=== PATIENT | male | born 1950 | race Caucasian/White ===

== ENCOUNTER 2021-04-21 07:39 | Outpatient (CLI) | payer MEDICARE, OTHER, SELFPAY ==
--- NOTE | ~2021-04-21 | NM_ITS ---
EXAMINATION: NM bone scan whole body DATE: 04/21/2021 11:08 INDICATION: Prostate cancer. Mild arthritis and pain at the left hand and wrist. TECHNIQUE: 26.8 mCi Tc-99m HDP was administered intravenously. Delayed whole-body scintigrams were o btained. COMPARISON: Chest CT dated 03/10/2019. No more recent imaging studies at our institution. FINDINGS: Foci of moderate likely degenerative increased uptake at the radial aspect of the left wrist and carp us in the regions of the radioscaphoid, triscaphe and first carpal metacarpal joints. Otherwise physi ologic distribution of bone and soft tissue activity. No other lesions suspicious for metastatic dise ase. IMPRESSION: 1. Joint centered uptake at the radial aspect of the left wrist and carpus which is likely degenerati ve in etiology. Could consider dedicated left wrist radiographs for further evaluation. Reviewed, dictated and finalized at location A. RAISING DIRECTOR IMPRESSION: 1. Joint centered uptake at the radial aspect of the left wrist and carpus whic h is likely degenerative in etiology. Could consider dedicated left wrist radio graphs for further evaluation.
== END 2021-04-21 07:40 | disposition home or self-care (01) ==
LOC: ANHIMG 07:43
PROVIDERS: PCP Internal Medicine; Visit Provider Urology
DX: C61 Malignant neoplasm of prostate (principal)
CPT/HCPCS: 78306; A9561

== ENCOUNTER 2022-05-03 05:57 | Inpatient (IN) | payer MEDICARE, OTHER, SELFPAY ==
[2022-05-03] VITALS (42 sets, daily range): BP systolic 90–125; BP diastolic 63–87; PULSE 94–119; RESP 12–33; TEMP 36.4–36.6; O2SAT 75–98
--- NOTE | ~2022-05-03 | XR_ITS ---
EXAMINATION: XR chest 1V portable INDICATION: Shortness of breath TECHNIQUE: Portable AP chest at 1128 hours COMPARISON: 05/03/2022 FINDINGS: Diffuse airspace opacities persist in the right mid and lower lung zones with slight improv ement. No pleural effusion or pneumothorax. The cardiomediastinal silhouette is normal. IMPRESSION: 1. Airspace opacities of the right mid and lower lung zones with slight improvement, consistent with pneumonia. Reviewed, dictated and finalized at location A. GENCY TECHNICIAN IMPRESSION: 1. Airspace opacities of the right mid and lower lung zones with slight improve ment, consistent with pneumonia.
--- NOTE | ~2022-05-03 | XR_ITS ---
EXAMINATION: XR chest 1V portable Exam Date/Time: 05/12/2022 13:25 WALLPAPER INSPECTOR AND SHIPPER HISTORY: pneumonia Comparison: 05/05/2022, CTPA 05/03/2022. RESULT: Lines, tubes, and devices: None. Lungs and pleura: Mild interval improvement in the reticular right lung opacities, with some transit ion to more coarse interstitial opacities. Mild right costophrenic angle blunting. Cardiomediastinal silhouette: Stable. Other: No acute osseous or upper abdominal finding. IMPRESSION: Mild interval improvement in the right lung pneumonia. Possible small right pleural effusion. Reviewed, dictated and finalized at location K. PAPER INSPECTOR AND SHIPPER IMPRESSION: Mild interval improvement in the right lung pneumonia. Possible small right ple ural effusion.
--- NOTE | ~2022-05-03 | XR_ITS ---
EXAMINATION: XR chest 1V portable DATE: 05/03/2022 06:29 INDICATION: Shortness of breath. Chronic obstructive pulmonary disease. TECHNIQUE: A single frontal view of the chest was obtained. COMPARISON: Chest 2 views 11/07/2018 FINDINGS: The lungs are hyperexpanded with lucencies, consistent with emphysema. There are airspace o pacities in right lung predominantly involving the right mid and lower lung zones. There is a small r ight pleural effusion. No pneumothorax. The heart size is normal. IMPRESSION: 1. Airspace opacities in right lung predominantly involving the right mid and lower lung zones, consi stent with pneumonia. 2. Small right pleural effusion. 3. Emphysema. Reviewed, dictated and finalized at location A. UNT RESOLUTION EXPERT IMPRESSION: 1. Airspace opacities in right lung predominantly involving the right mid and l ower lung zones, consistent with pneumonia. 2. Small right pleural effusion. 3. Emphysema.
--- NOTE | ~2022-05-03 | XR_ITS ---
EXAMINATION: XR ankle RT min 3V, XR foot RT min 3V DATE: 05/17/2022 14:11 INDICATION: Right foot and ankle pain with inability to bear weight TECHNIQUE: 1. Anteroposterior, mortise, additional oblique and lateral view of the right ankle were obtained. 2. Dorsoplantar, two oblique and lateral views of the right foot were obtained. COMPARISON: None. FINDINGS: Alignment of the foot and ankle is normal. No fracture or osteochondral lesion. Joint spaces are well maintained. No cortical erosions or periosteal reaction. Small amount of dystrophic calcification al franco the medial side of the head of the first metatarsal potentially along the medial collateral ligam ent complex. Soft tissues are otherwise unremarkable. No ankle joint effusion. IMPRESSION: 1. No osseous abnormality at the right foot or ankle. Reviewed, dictated and finalized at location A. TER PILOT IMPRESSION: 1. No osseous abnormality at the right foot or ankle.
--- NOTE | ~2022-05-03 | US_ITS ---
EXAMINATION: US right upper quadrant DATE: 05/06/2022 10:53 INDICATION: Abnormal liver function tests TECHNIQUE: Multiple grayscale and Doppler ultrasound images of the abdomen were obtained. COMPARISON: CT, 05/03/2022 FINDINGS: The head and body of the pancreas are normal. The pancreatic tail is obscured by bowel gas. The liver demonstrates increased echogenicity, heterogenous echotexture, and decreased through trans mission. No surface nodularity. Normal hepatopetal flow in the main portal vein. The gallbladder is n ormal with no abnormal wall thickening, pericholecystic fluid or stones. The normal common bile duct measures 4 mm. There was no sonographic Lopez sign. IMPRESSION: 1. Diffuse hepatic steatosis. Reviewed, dictated and finalized at location A. AIDE TECH
--- NOTE | ~2022-05-03 | US_ITS ---
EXAMINATION: US aorta DATE: 05/11/2022 15:12 INDICATION: Abdominal aortic aneurysm TECHNIQUE: Grayscale, color Doppler, and pulsed Doppler images of the aorta and common iliac arteries were obtained. COMPARISON: None. FINDINGS: The proximal aorta measures 3.7 cm. The mid aorta measures 2.9 cm. The distal aorta measures 2.3 cm. The right common iliac artery measures 1.4 cm. The left common iliac artery measures 1.4 cm. IMPRESSION: 1. Ectatic proximal abdominal aorta measuring up to 3.7 cm. Reviewed, dictated and finalized at location A. E FILER
--- NOTE | ~2022-05-03 | CT_ITS ---
EXAMINATION: CTA chest PE protocol DATE: 05/03/2022 08:53 INDICATION: Shortness of breath and hypoxia TECHNIQUE: Computed tomography angiography (CTA) of the chest was performed with 100 mL Omnipaque-350 intravenous contrast timed to evaluate the pulmonary arteries. Coronal maximum intensity projection 3D-reconstructions were created by the technologist. The dose-length product (DLP) was 542.98 mGy-cm. Automated exposure control and iterative reconstruction technique were employed. COMPARISON: 03/10/2019 FINDINGS: The pulmonary arteries are well-opacified. No pulmonary embolism is identified. There is s evere emphysema. There are diffuse airspace opacities involving much of the right lower lobe and port ions of the right middle and upper lobes. There is right hilar, subcarinal, and right paratracheal ly mphadenopathy. The heart size is normal. There is a trace right pleural effusion. No pneumothorax is identified. There is moderate thoracic spondylosis. There is mild gallbladder distention which could be due to fasting state. A stable partially imaged mass in the subcutaneous tissues of the left upper back likely represents a sebaceous cyst. IMPRESSION: 1. No pulmonary embolism identified. 2. Diffuse airspace opacities involving much of the right lower lobe and portions of the right middle and upper lobes, consistent with pneumonia. 3. Right hilar and mediastinal lymphadenopathy, likely reactive. Reviewed, dictated and finalized at location A. TUBE ATTENDANT IMPRESSION: 1. No pulmonary embolism identified. 2. Diffuse airspace opacities involving much of the right lower lobe and portio ns of the right middle and upper lobes, consistent with pneumonia. 3. Right hilar and mediastinal lymphadenopathy, likely reactive.
--- NOTE | 2022-05-03 06:06 | ECG_ITS ---
Measurements Intervals [place] Rate: 116 P: 67 AL: 134 QRS: 19 QRSD: 82 T: 58 QT: 305 QTc: 425 Interpretive Statements SINUS TACHYCARDIA WITH OCCASIONAL VENTRICULAR PREMATURE COMPLEXES WITH OCCASIONAL SUPRAVENTRICULAR PREMATURE COMPLEXES ABNORMAL RHYTHM ECG COMPARED TO ECG 11/07/2018 12:30:38 SINUS TACHYCARDIA PACS AND PVCS ARE NOW PRESENT Electronically Signed On 05-03-2022 11:44:58 JUVENILE CORRECTIONS OFFICER by Tamra Flanagan M.D.
--- NOTE | 2022-05-03 06:18 | ED.SOB ---
HPI - SOB/Dyspnea General Chief Complaint: Shortness of Breath/Dyspnea <Momo Suresh MD - Last Filed: 05/03/22 07:27> Stated Complaint: COPD <Momo Suresh MD - Last Filed: 05/03/22 07:27> Time Seen by Provider: 05/03/22 06:16 <Momo Suresh MD - Last Filed: 05/03/22 07:27> History of Present Illness HPI Narrative: This is a 71-year-old male past medical history of COPD, left femoral DVT, aortic aneurysm, brought in by EMS from home for hypoxia. Patient states he has been feeling short of breath with some wheeze beginning 3 days ago. He tried to manage with home nebs without improvement. He uses 2 L of O2 at home as needed. He complains of diffuse myalgias and cough productive of thick mucus without blood. EMS reports the patient was satting in the high 70s on room air. He was given 2 g of mag, 10 mg Decadron and 5 mg albuterol nebs with improvement of his O2 sats to the mid 80s. <Momo Suresh MD - Last Filed: 05/03/22 07:27> Related Data Home Medications: Home Medications Medication Instructions Recorded Confirmed albuterol sulfate 90 mcg/actuation 1 inhalation inhalation Q4H 05/27/19 05/26/21 aerosol inhaler (Ventolin HFA) amlodipine 5 mg tablet 5 mg PO DAILY 05/27/19 05/26/21 atenolol 100 mg tablet 100 mg PO DAILY 05/27/19 05/26/21 multivitamin (Multiple Vitamins 1 tablet PO DAILY 05/27/19 05/26/21 tablet) rivaroxaban 20 mg tablet (Xarelto) 20 mg PO DAILY 05/27/19 05/26/21 simvastatin 20 mg tablet 20 mg PO DAILY 05/27/19 05/26/21 albuterol sulfate 2.5 mg/3 mL 2.5 mg inhalation Q4-6H PRN 05/28/19 05/26/21 (0.083 %) solution for nebulization <Momo Suresh MD - Last Filed: 05/03/22 07:27> Allergies/Adverse Reactions: Allergies Allergy/AdvReac Type Severity Reaction Status Date / Time No Known Allergies Allergy Verified 05/03/22 07:50 <Momo Suresh MD - Last Filed: 05/03/22 07:27> Review of Systems Review of Systems: CONSTITUTIONAL: Fevers, chills denies sweats. EYES: Denies visual changes, redness, or discharge. ENT: Rhinorrhea, congestion denies sore throat, or otalgia. CARDIOVASCULAR: Denies chest pain, palpitations, or edema. RESPIRATORY: Cough and dyspnea GASTROINTESTINAL: Denies abdominal pain, nausea, vomiting, or diarrhea. GENITOURINARY: Denies dysuria or hematuria. SKIN: Denies rash or itching. MUSCULOSKELETAL: Denies back pain, joint pain, or myalgia. NEUROLOGIC: Denies headache, numbness, dizziness, or weakness. PSYCHIATRIC: Denies anxiety or depression. <Momo Suresh MD - Last Filed: 05/03/22 07:27> PMFSH Past Medical History Medical History: Medical History (Updated 05/03/22 @ 07:25 by Momo Suresh MD) COPD exacerbation History of DVT (deep vein thrombosis) Sleep apnea Thoracic aortic aneurysm without rupture <Momo Suresh MD - Last Filed: 05/03/22 07:27> Family History Family History: Family History Mother Family history of lung cancer <Momo Suresh MD - Last Filed: 05/03/22 07:27> Social History Social History: Social History Smoking packs per day: 3 Smoking cigarettes per day: 60.0 Years smoked: 43 Smoking pack-years: 129.00 Smoking status: Former smoker Second hand tobacco smoke exposure: No Smoking end date: 05/20/05 <Momo Suresh MD - Last Filed: 05/03/22 07:27> Exam Narrative: GENERAL: Well-developed, well-nourished, and in no acute distress. HEAD: Normocephalic, atraumatic. EYES: PERRLA and EOMI. ENT: Nares clear, no rhinorrhea or epistaxis. Mucous membranes moist. Oropharynx without tonsillar hypertrophy exudate or other lesions. NECK: Supple. No adenopathy or masses. No carotid bruits or JVD CHEST: Diminished aeration bilaterally with expiratory wheeze. No respiratory distress. No rales or rhonch
[2022-05-03 06:23] LABS: Alveolar/Arterial O2 Gradient 604.6 mmHg; Base Excess ABG -0.2 mEq/l (+/-2.0); Carboxyhemoglobin 1.2 % THb (0-2.0); Device NON-INVASIVE VENT; Fractional Inspired Oxygen 100 %; HCO3 ABG 23.8 mEq/l (22.0-26.0); Methemoglobin ABG 0.4 %THb (0-1.5); Modified Allen's Test Unable to perform; Oxygen Content ABG 22.1 %vol (16.0-22.0); Oxygen Saturation ABG 94.7 % (95.0-100.0); Oxyhemoglobin 92.6 % THb (90.0-100.0); PCO2 ABG 37.4 mmHg (35.0-45.0); PO2 FiO2 Ratio Arterial Blood 0.71 %; Reduced Hemoglobin 5.8 %THb (0-5.0); Site Drawn LEFT RADIAL; pH ABG 7.422 (7.350-7.450)
[2022-05-03 06:24] LABS: Non-Invasive Expiratory Pressure 6 CMH2O; Non-Invasive Inspiratory Pressure 12 CMH2O; Non-Invasive Vent Rate 16 /MIN
[2022-05-03] MEDS: IPRATROPIUM BR 0.02% INH SOLN 0.5 MG/2.5 ML VIAL INHALATION (06:30)
[2022-05-03] MEDS: ALBUTEROL SULFATE NEB 2.5 MG/3 ML INH 10 MG INHALATION (06:30)
[2022-05-03 06:34] LABS: Hematocrit 48.7 % (42.0-52.0); Hemoglobin 16.7 g/dL (14.0-18.0); Mean Corpuscular HGB Conc 34.3 g/dl (32-36); Mean Corpuscular Volume 93.3 fl (80-100); Mean Platelet Volume 10.4 fl (7.4-10.4); Platelet Count Result 161 k/mm3 (150-375); Red Blood Count 5.22 M/mm3 (4.6-6.20); Red Cell Distribution Width 13.6 % (11.5-14.5); White Blood Count 2.7 K/mm3 (4.5-10.0)
[2022-05-03 06:41] LABS: Lactic Acid Reflex 3.6 mmol/L (0.7-2.0)
[2022-05-03 06:42] LABS: Alanine Aminotransferase 61 U/L (6-50); Albumin Level 3.7 g/dL (3.5-5.1); Alkaline Phosphatase 89 U/L (38-126); Anion Gap 9 mmol/L (8-16); Aspartate Amino Transferase 97 U/L (17-59); Bilirubin,Total 0.9 mg/dL (0.2-1.3); Blood Urea Nitrogen 39 mg/dL (9-20); Calcium 8.8 mg/dL (8.4-10.2); Carbon Dioxide 26 mmol/L (22-30); Chloride 96 mmol/L (98-107); Estimated Glomerular Filt Rate > 60; Glucose 109 mg/dL (65-110); Magnesium 3.4 mg/dL (1.6-2.3); Potassium 4.1 mmol/L (3.4-5.0); Sodium 131 mmol/L (137-145)
[2022-05-03 06:54] LABS: Troponin I < 0.012 ng/mL (0.000-0.034)
[2022-05-03 06:58] LABS: INR 2.8; Prothrombin Time 28.5 Seconds (11.1-14.7)
[2022-05-03 07:05] LABS: Influenza A QL RT-PCR Negative (Negative); Influenza B QL RT-PCR Negative (Negative); RSV RNA, RT-PCR Negative (Negative); SARS-CoV-2 RNA PCR Negative
[2022-05-03 07:27] LABS: Band Neutrophils Percent 24 % (0-6); Eosinophils Absolute Manual 0.05 K/mm3 (0.02-0.5); Eosinophils Percent Manual 2 % (0-4); Lymphocytes Absolute Manual 0.48 K/mm3 (1.1-4.5); Metamyelocytes Percent 1 %; Monocytes Absolute Manual 0.29 K/mm3 (0.1-0.90); Monocytes Percent Manual 11 % (3-9); Neutrophils Absolute Manual 1.83 K/mm3 (1.3-6.7); Neutrophils Percent Manual 44 % (46-73); Total Cells Counted 100
[2022-05-03 07:28] LABS: Atypical Lymphocytes Present; Platelet Estimate Adequate (Adequate); Schistocytes None Seen (NORMAL)
[2022-05-03 09:26] LABS: Reflex Lactic Acid Yes or No Add Lactic
[2022-05-03 09:56] LABS: Lactic Acid 2.6 mmol/L (0.7-2.0)
--- NOTE | 2022-05-03 11:00 | PC.NURSE ---
Patient refusing to wear BiPAP, states I can't breathe in that thing. EDP aware. Per EDP, okay to start high flow. Patient 90% on high flow.
--- NOTE | 2022-05-03 12:31 | PC.NURSE ---
Patient 85% on high flow. Patient okay to attempt to be placed back on BiPAP. ED respiratory notified.
--- NOTE | 2022-05-03 13:33 | ADMGEN ---
This patient, Donta Collins, was admitted to IMU Room 204-01 at 1318. Patient/family oriented to hospital policies and general routines including ID bracelet, bed and alarms, visiting hours, pain management, procedures, bathroom and other care routines, personal items, smoking policy, room service/diet, and visiting hours. Information on how to activate the Rapid Response Team has been discussed. Patient/Family are encouraged to report perceived risks to care and to ask questions if they do not understand what they are told or what they should do.
--- NOTE | 2022-05-03 20:06 | PM.IMHP ---
H&P: HPI History of Present Illness Date/Time: 05/03/22 20:06 Chief Complaint: Shortness of breath Narrative: This is a 71-year-old male patient who does have a history of DVTs and COPD. The patient was brought from home due to hypoxia. The patient stated that he does have oxygen at home but only uses it at times when he needs it. He uses 2 L when needed. The patient stated that he has had to turn his oxygen up to 6 L per nasal cannula and has been using it over the last couple days. The patient was feeling short of breath with some wheezing that started 3 days ago. He attempted to manage it with the oxygen and nebulizer treatments. Patient has complaints of myalgias and a cough. His O2 saturation was in the upper 70s on room air. When EMS was activated the aim 2 g of Mag 10 mg of Decadron 5 mg of albuterol nebs any did have some improvement that brought his oxygen level up to the upper 80s. His white count was found to be 2.7. Sodium 131. Lactic was 3.6 and then 2.6. AST 97 and ALT 61. Troponins were negative x2. The patient was given nebulizer treatments and cefepime and azithromycin. CTA was read as. No pulmonary embolism identified. 1. No pulmonary embolism identified. 2. Diffuse airspace opacities involving much of the right lower lobe and portions of the right middle and upper lobes, consistent with pneumonia. 3. Right hilar and mediastinal lymphadenopathy, likely reactive. Chest x-ray was read as. Airspace opacities in right lung predominantly involving the right mid and lower lung zones, consistent with pneumonia. 2. Small right pleural effusion. 3. Emphysema. The patient was started on a BiPAP 14/8 with a rate of 12 and 50% FiO2. The patient is being admitted to inpatient status on the date of service of 05/03/2022. Review of Systems Review of Systems: See HPI All systems reviewed & are unremarkable except as noted in HPI and below Constitutional: Constitutional: Reports as per HPI and Reports no additional constitutional complaints Eyes: Eyes: Reports as per HPI and Reports no additional eye complaints ENT: Reports system reviewed and no additional complaints, except as documented and Reports Normal hearing present Cardiovascular: Cardiovascular: Reports no additional cardiovascular complaints Respiratory: Respiratory: Reports no additional respiratory complaints and Reports no additional respiratory complaints Gastrointestinal: Gastrointestinal: Reports as per HPI and Reports no additional gastrointestinal complaints Musculoskeletal: Musculoskeletal: Reports no additional musculoskeletal complaints Integumentary/Breasts: Skin/Breast: Reports system reviewed and no additional complaints, except as docu and Reports as per HPI Neurologic: Reports system reviewed and no additional complaints, except as documented, Reports as per HPI and Reports Normal hearing present Psychiatric: Psychiatric: Reports no additional psychiatric complaints and Reports as per HPI Endocrine: Endocrine: Reports no additional endocrine complaints Hematologic/Lymphatic: Hematologic/Lymphatic: Reports no additional hematologic/lymphatic complaints Allergic/Immunologic: Allergic/Immunologic: Reports no additional allergic/immunologic complaints COUNTS INCLUDE 234 BEDS AT THE [facility] Past Medical History Medical History (Updated 05/03/22 @ 23:19 by Adriana Gayle NP) COPD exacerbation History of DVT (deep vein thrombosis) History of prostate cancer Hyperlipidemia Hypertension Sleep apnea Thoracic aortic aneurysm without rupture Surgical History Surgical History (Updated 05/03/22 @ 23:14 by Adriana Gayle NP) H/O cataract extraction H/O foot surgery Family History Family History Mother Family history of lung cancer Social History Social History (Updated 05/03/22 @ 23:08 by Adriana Gayle NP) Social History: The patient lives at home with his who is the durable power consulting systems engineer
[2022-05-03] MEDS: methylPREDNISolone SOD SUCC 40 MG VIAL IV PUSH (23:37)
[2022-05-03 23:57] LABS: Lactic Acid Reflex 1.7 mmol/L (0.7-2.0)
[2022-05-04] VITALS (20 sets, daily range): BP systolic 109–141; BP diastolic 60–88; PULSE 84–111; RESP 20–28; TEMP 36.2–37.2; O2SAT 82–96
[2022-05-04 05:09] LABS: Hematocrit 45.4 % (42.0-52.0); Hemoglobin 15.8 g/dL (14.0-18.0); Mean Corpuscular HGB Conc 34.8 g/dl (32-36); Mean Corpuscular Volume 91.9 fl (80-100); Mean Platelet Volume 10.4 fl (7.4-10.4); Platelet Count Result 153 k/mm3 (150-375); Red Blood Count 4.94 M/mm3 (4.6-6.20); Red Cell Distribution Width 13.6 % (11.5-14.5); White Blood Count 6.1 K/mm3 (4.5-10.0)
[2022-05-04 05:17] LABS: Magnesium 2.7 mg/dL (1.6-2.3)
[2022-05-04 05:55] LABS: Thyroid Stimulating Hormone Reflex 0.237 uIU/mL (0.465-4.68)
[2022-05-04 05:57] LABS: Atypical Lymphocytes Present; Band Neutrophils Percent 22 % (0-6); Lymphocytes Absolute Manual 0.48 K/mm3 (1.1-4.5); Macrocytosis 2+ (NORMAL); Metamyelocytes Percent 3 %; Monocytes Absolute Manual 0.24 K/mm3 (0.1-0.90); Monocytes Percent Manual 4 % (3-9); Neutrophils Absolute Manual 5.18 K/mm3 (1.3-6.7); Neutrophils Percent Manual 63 % (46-73); Platelet Estimate Adequate (Adequate); Schistocytes None Seen (NORMAL); Total Cells Counted 100
[2022-05-04] MEDS: methylPREDNISolone SOD SUCC 40 MG VIAL IV PUSH ×4 (06:26→23:37)
[2022-05-04] MEDS: ALBUTEROL SULFATE (*SP) AEROSOL 1 PUFF INHALATION ×3 (07:15→20:14)
[2022-05-04] MEDS: FLUTICASONE/UMECLIDIN/VILANTER 100-62.5-25 MCG ELLIPTA 1 PUFF INHALATION (07:20)
[2022-05-04 08:21] LABS: Free T4 Free Thyroxine Reflex 1.34 ng/dL (0.78-2.19)
--- NOTE | 2022-05-04 09:17 | PM.IMPN ---
Progress Note: A&P Assessment and Plan (1) CAP (community acquired pneumonia): Code(s): J18.9 - Pneumonia, unspecified organism Status: Acute Assessment and Plan: CTA chest with right lower, right middle and right upper lobe. Daughter mentions ETOH abuse to nurse, so with this presentation consider aspiration pneumonia. Will treat to cover for aspiration as well as high risk due to structural lung disease as emphysema noted on CTA. -Cefepime 2g q8h -Vancomycin -Azithromycin 500 mg po daily (2) Acute exacerbation of chronic obstructive airways disease: Code(s): J44.1 - Chronic obstructive pulmonary disease with (acute) exacerbation Status: Acute Assessment and Plan: -Ipratropium - albuterol q4h -Methylprednisolone 40 mg IV q6h -Wean oxygen as tolerated (3) Hypertension: Code(s): I10 - Essential (primary) hypertension Status: Acute Assessment and Plan: Takes atenolol and amlodipine at home. Continue. Will monitor. (4) Hyperlipidemia: Code(s): E78.5 - Hyperlipidemia, unspecified Status: Acute Assessment and Plan: Takes simvastatin 20 mg daily. Continue. (5) History of DVT (deep vein thrombosis): Code(s): Z86.718 - Personal history of other venous thrombosis and embolism Status: Acute Assessment and Plan: Takes rivaroxaban at home. Continue. Subjective Date/time seen: 05/04/22 09:17 Patient says he feels better. Says his breathing is better but still feels shortness of breath. Denies chest pain. Says prior to coming to the emergency department he would feel pain on his right side when he took a deep breath. He says this has resolved since starting treatment in the emergency department. Exam Narrative: GENERAL: NAD, cooperative HEENT: Normocephalic, atraumatic, anicteric, nares clear, oropharynx moist and clear NECK:Supple CV: Normal S1, S2, RRR, No MRG RESP: Crackles to right base EXTREMITIES: Warm and well perfused, no clubbing, cyanosis, or edema. SKIN: warm, dry and intact. NEURO: CN II-XII grossly intact. Objective Data Vital Signs Vital Signs: Vital Signs - 24 hr 05/03/22 10:02 05/03/22 10:07 05/03/22 10:40 Temperature Pulse Rate 110 H Respiratory Rate 15 Blood Pressure 102/77 Pulse Oximetry 88 L Oxygen Delivery High Flow Therapy with Na Oxygen Flow Rate 60 Fraction of Inspired Oxygen 90 05/03/22 10:07 05/03/22 10:21 05/03/22 11:01 Temperature Pulse Rate 99 98 100 Respiratory Rate 20 19 12 Blood Pressure 102/77 125/84 Pulse Oximetry 90 91 89 L Oxygen Delivery Oxygen Flow Rate Fraction of Inspired Oxygen 05/03/22 12:33 05/03/22 11:02 05/03/22 11:15 Temperature Pulse Rate 100 98 Respiratory Rate 12 17 Blood Pressure 104/73 Pulse Oximetry 88 L 89 L Oxygen Delivery Oxygen Flow Rate Fraction of Inspired Oxygen 05/03/22 11:38 05/03/22 11:45 05/03/22 11:46 Temperature Pulse Rate 96 96 97 Respiratory Rate 22 H 17 23 H Blood Pressure 113/82 Pulse Oximetry 88 L 91 92 Oxygen Delivery Oxygen Flow Rate Fraction of Inspired Oxygen 05/03/22 12:00 05/03/22 12:30 05/03/22 12:36 Temperature Pulse Rate 98 96 94 Respiratory Rate 14 15 23 H Blood Pressure Pulse Oximetry 91 87 L 90 Oxygen Delivery BiPAP Oxygen Flow Rate Fraction of Inspired Oxygen 05/03/22 12:53 05/03/22 13:30 05/03/22 14:00 Temperature Pulse Rate 100 98 Respiratory Rate 33 H Blood Pressure Pulse Oximetry 92 91 Oxygen Delivery BiPAP BiPAP Oxygen Flow Rate Fraction of Inspired Oxygen 05/03/22 16:00 05/03/22 17:31 05/03/22 18:00 Temperature Pulse Rate 103 H 109 H Respiratory Rate 22 H Blood Pressure Pulse Oximetry 92 Oxygen Delivery BiPAP Oxygen Flow Rate Fraction of Inspired Oxygen 05/03/22 16:00 05/03/22 16:00 05/03/22 20:00 Tempera
[2022-05-04 09:18] LABS: Total Triiodothyronine (T3) 0.38 NG/ML (0.97-1.69)
[2022-05-04] MEDS: amLODIPine BESYLATE 5 MG TABLET PO (09:20)
[2022-05-04] MEDS: atenoloL 50 MG TABLET 100 MG PO (09:21)
[2022-05-04] MEDS: MULTIVITAMINS THERAPEUTIC TAB (*BKC) 1 TABLET PO (09:21)
[2022-05-04] MEDS: SIMVASTATIN 20 MG TABLET PO (09:21)
[2022-05-04 09:34] LABS: Alanine Aminotransferase 79 U/L (6-50); Albumin Level 2.9 g/dL (3.5-5.1); Alkaline Phosphatase 29 U/L (38-126); Anion Gap 5 mmol/L (8-16); Aspartate Amino Transferase 97 U/L (17-59); Bilirubin,Total 0.3 mg/dL (0.2-1.3); Blood Urea Nitrogen 43 mg/dL (9-20); Calcium 11.9 mg/dL (8.4-10.2); Carbon Dioxide 31 mmol/L (22-30); Chloride 96 mmol/L (98-107); Estimated CRCL calculation 55 ml/min; Estimated Glomerular Filt Rate > 60; Glucose 146 mg/dL (65-110); Potassium 4.2 mmol/L (3.4-5.0); Sodium 132 mmol/L (137-145)
[2022-05-04] MEDS: IPRATROPIUM BR 0.02% INH SOLN 0.5 MG/2.5 ML VIAL INHALATION ×2 (13:17→20:15)
--- NOTE | 2022-05-04 17:55 | PC.NURSE ---
Pt has mild confusion and hallucinations. pt hallucinating a robot in the hallway . Per pt's daughter, pt is a daily drinker and drinks 4-8 drinks per day. Pt's daughter believes last drink was this past saturday, 04/29. Information and condition update to Dr. Feng.
[2022-05-04] MEDS: RIVAROXABAN 20 MG TABLET PO (18:06)
[2022-05-05] VITALS (38 sets, daily range): BP systolic 105–140; BP diastolic 72–93; PULSE 88–160; RESP 20–28; TEMP 36.4–36.8; O2SAT 76–98
--- NOTE | 2022-05-05 | PC.NURSE ---
Pt got up to bathroom alone, pulled off oxygen and heart monitor/pulse ox. RN had to increase nc to 13L. When asked orientation questions/CIWA, pt stated he didn't know where he was. Pt stated he just wanted to go back to bed. Pt refused librium from RN and breathing treatment from RT.
--- NOTE | 2022-05-05 | ECHO_ITS ---
Patient Info Name: Donta Collins Age: 71 years : 1950 Gender: Male Ht: 70 in Wt: 160 lbs BSA: 1.89 m2 HR: 118 bpm Heart Rhythm: Atrial Fibrillation Technical Quality: Poor Exam Date: 05/05/2022 1:47 PM Exam Location: [facility] Pulmonary Exam Room: Patient Status: Inpatient Admit Date: 05/03/2022 Staff Ordering Physician: Kane Boston MD Net Finisher: Jennifer Jewell RDCS Attending Provider: Glenn Heaton MD Referring Physician: Darvin LAU; Exam Type: CA echo dop color flow w con Study Info Indications - new afib/rvr Complete two-dimensional, color flow and Doppler transthoracic echocardiogram is performed with contrast to opacify the left ventricle and to improve the deliniation of the left ventricle endocardial borders. Reason for Poor Study: patient body habitus Summary 1. Mild left ventricular enlargement with normal thickness with good contractility of all segments. Ejection fraction visually appears to be 55-60% depending on the length of the preceding cardiac cycle. No segmental wall motion abnormalities. Indeterminate diastolic function. 2. Left atrial chamber dimension is mildly enlarged. 3. There is a mass on 1 of the aortic valve leaflets, probably mild aortic valve calcification. A vegetation cannot be excluded on this study. Consider further evaluation if clinically indicated. 4. There is mild mitral valve regurgitation. 5. Mild pulmonary hypertension, estimated pulmonary arterial systolic pressure is 44 mmHg. 6. Calcified aortic root. 7. Atrial fibrillation with a rapid ventricular response. Left Ventricle Left ventricular chamber dimension is mildly enlarged. Left ventricular systolic function is normal, estimated at 55-60%. There is no increased left ventricular wall thickness. Left ventricular septal wall motion is normal. The left ventricular diastolic function is indeterminate. Right Ventricle Right ventricular chamber dimension is normal. Right ventricular systolic function is normal. Left Atria Left atrial chamber dimension is mildly enlarged. Right Atria Right atrial chamber dimension is normal. Aortic Valve The aortic valve is trileaflet. There is no aortic valve sclerosis. There is no aortic valve stenosis. There is no aortic valve regurgitation. There is a mass on 1 of the aortic valve leaflets, probably mild aortic valve calcification. A vegetation cannot be excluded on this study. Consider further evaluation if clinically indicated. Pulmonic Valve The pulmonic valve is normal. There is no pulmonic valve stenosis. There is no pulmonic regurgitation. Mitral Valve The mitral valve has normal leaflets. There is no mitral valve stenosis. There is mild mitral valve regurgitation. Tricuspid Valve The tricuspid valve leaflets are normal. There is no significant tricuspid valve stenosis. There is trace tricuspid valve regurgitation. Mild pulmonary hypertension, estimated pulmonary arterial systolic pressure is 44 mmHg. Pericardium/Pleural The pericardium appears normal. There is no pericardial effusion. Inferior Vena Cava Normal inferior vena cava with >50% collapse upon inspiration consistent with Empty right atrial pressure, 10 mmHg. Aorta The aortic root size at the sinus of Valsalva is normal. The prox ascending aorta size is normal. There is mild aortic atherosclerosis. Left Ventricular Outflow Tract
[2022-05-05] MEDS: WATER FOR IRRIGATION, STERILE 1,000 ML BOTTLE 1000 ML (02:05)
[2022-05-05] MEDS: IPRATROPIUM BR 0.02% INH SOLN 0.5 MG/2.5 ML VIAL INHALATION (04:15)
[2022-05-05] MEDS: ALBUTEROL SULFATE NEB 2.5 MG/3 ML INH INHALATION (04:16)
[2022-05-05 04:33] LABS: Eosinophils Percent Auto 0.1 % (0-4.4); Hematocrit 46.1 % (42.0-52.0); Hemoglobin 16.1 g/dL (14.0-18.0); Immature Granulocyte Absolute 0.56 K/mm3 (0.00-0.031); Lymphocytes Absolute Auto 0.59 K/mm3 (0.9-3.2); Lymphocytes Percent Auto 5.3 % (18.3-44.2); Mean Corpuscular HGB Conc 34.9 g/dl (32-36); Mean Corpuscular Hemoglobin 32.2 pg (26-34); Mean Corpuscular Volume 92.2 fl (80-100); Mean Platelet Volume 10.3 fl (7.4-10.4); Monocytes Absolute Auto 0.5 K/mm3 (0.1-0.6); Monocytes Percent Auto 4.6 % (2.6-8.5); Neutrophils Absolute Auto 9.5 K/mm3 (1.3-6.7); Nucleated Red Blood Cells Perc 0.3 % (0.0-0.2); Platelet Count Result 168 k/mm3 (150-375); Red Cell Distribution Width 13.8 % (11.5-14.5); White Blood Count 11.2 K/mm3 (4.5-10.0)
[2022-05-05 04:51] LABS: Anion Gap 6 mmol/L (8-16); Blood Urea Nitrogen 38 mg/dL (9-20); Calcium 8.7 mg/dL (8.4-10.2); Carbon Dioxide 31 mmol/L (22-30); Chloride 92 mmol/L (98-107); Estimated CRCL calculation 84 ml/min; Estimated Glomerular Filt Rate > 60; Glucose 146 mg/dL (65-110); Potassium 4.2 mmol/L (3.4-5.0); Sodium 129 mmol/L (137-145)
[2022-05-05 04:58] LABS: Platelet Estimate Adequate (Adequate); Schistocytes None Seen (NORMAL)
[2022-05-05 04:59] LABS: Atypical Lymphocytes Present
[2022-05-05] MEDS: methylPREDNISolone SOD SUCC 40 MG VIAL IV PUSH (06:32)
[2022-05-05] MEDS: chlordiazePOXIDE (*CRX) 25 MG CAPSULE PO ×3 (06:34→17:40)
--- NOTE | 2022-05-05 07:47 | ECG_ITS ---
Measurements Intervals [place] Rate: 146 P: DC: 0 QRS: 23 QRSD: 91 T: 46 QT: 276 QTc: 431 Interpretive Statements ATRIAL FIBRILLATION WITH RAPID VENTRICULAR RESPONSE LOW QRS VOLTAGE IN EXTREMITY LEADS [QRS DEFLECTION < 0.5 mV IN LIMB LEADS] ABNORMAL RHYTHM ECG COMPARED TO ECG 05/03/2022 06:04:48 ATRIAL FIBRILLATION NOW PRESENT Electronically Signed On 05-05-2022 8:45:49 TRUCK SUPERVISOR by Tamra Flanagan M.D.
--- NOTE | 2022-05-05 08:08 | PM.IMPN ---
Progress Note: A&P Assessment and Plan (1) CAP (community acquired pneumonia): Code(s): J18.9 - Pneumonia, unspecified organism Status: Acute Assessment and Plan: CTA chest with right lower, right middle and right upper lobe. Daughter mentions ETOH abuse to nurse, so with this presentation consider aspiration pneumonia. Will treat to cover for aspiration as well as high risk due to structural lung disease as emphysema noted on CTA. -Cefepime 2g q8h -Vancomycin -Azithromycin 500 mg po daily (2) Atrial fibrillation with RVR: Code(s): I48.91 - Unspecified atrial fibrillation Status: Acute Assessment and Plan: May 05 detected by telemetry and patient denied prior history May 05 metoprolol IV and p.o. initiated in lieu of atenolol 05/05 Echo ordered, TSH and FT4 05/04 c/w sick euthyroid (3) Acute exacerbation of chronic obstructive airways disease: Code(s): J44.1 - Chronic obstructive pulmonary disease with (acute) exacerbation Status: Acute Assessment and Plan: -Ipratropium - albuterol q4h -Methylprednisolone 40 mg IV q6h initially, 05/05 started steroid taper -Wean oxygen as tolerated (4) Hypertension: Code(s): I10 - Essential (primary) hypertension Status: Acute Assessment and Plan: Takes atenolol and amlodipine at home. Switch to metoprolol (5) Hyperlipidemia: Code(s): E78.5 - Hyperlipidemia, unspecified Status: Acute Assessment and Plan: Takes simvastatin 20 mg daily. Continue. (6) History of DVT (deep vein thrombosis): Code(s): Z86.718 - Personal history of other venous thrombosis and embolism Status: Acute Assessment and Plan: Takes rivaroxaban at home. 05/05 patient says it is for AAA with thrombus (7) Alcohol related disorder: Code(s): F10.99 - Alcohol use, unspecified with unspecified alcohol-induced disorder Status: Acute Assessment and Plan: Continue CIWA protocol, thiamine (8) Abnormal liver enzymes: Code(s): R74.8 - Abnormal levels of other serum enzymes Status: Acute Assessment and Plan: Likely due to alcohol 05/05 hepatitis panel pending Subjective Date/time seen: 05/05/22 08:08 Interval history: Still has dyspnea on exertion. Moving about in bed. Generalized weakness. Poor appetite. Nurse noted AFib with RVR this morning rate 140-150. Patient has no additional symptoms. No prior history of AFib. History of hypertension and structural heart disease per chart. Last echocardiogram by learning program manager May 2021. Already taking Xarelto due to history of abdominal aortic aneurysm with clot. Denied chest pain swelling GR issues or abnormal bleeding. Denied focal weakness. Review of Systems Review of Systems: All systems reviewed & are unremarkable except as noted in HPI and below Exam Narrative: GENERAL: NAD, cooperative HEENT: Normocephalic, atraumatic, anicteric, nares clear, oropharynx moist and clear NECK:Supple CV: Normal S1, S2, RRR, No MRG RESP: Crackles to right base EXTREMITIES: Warm and well perfused, no clubbing, cyanosis, or edema. SKIN: warm, dry and intact. NEURO: CN II-XII grossly intact. Objective Data Vital Signs Vital Signs: Vital Signs - 24 hr 05/04/22 09:21 05/04/22 11:15 05/04/22 11:20 Temperature Pulse Rate 111 H Respiratory Rate Blood Pressure Pulse Oximetry 82 L 92 Oxygen Delivery Nasal Cannula High Flow Therapy with Na Oxygen Flow Rate 6 60 Fraction of Inspired Oxygen 60 05/04/22 12:00 05/04/22 10:00 05/04/22 13:21 Temperature Pulse Rate 104 H 95 Respiratory Rate 20 Blood Pressure Pulse Oximetry 91 Oxygen Delivery Nasal Cannula Oxygen Flow Rate 6 Fraction of Inspired Oxygen 05/04/22 13:26 05/04/22 12:00 05/04/22 12:00 Temperature 97.1 F L Pulse Rate 106 H 100 101 H Respira
[2022-05-05] MEDS: MULTIVITAMINS THERAPEUTIC TAB (*BKC) 1 TABLET PO (08:33)
[2022-05-05] MEDS: SIMVASTATIN 20 MG TABLET PO (08:33)
[2022-05-05] MEDS: METOPROLOL TARTRATE INJ 5 MG/5 ML VIAL IV PUSH ×3 (08:33→09:38)
[2022-05-05] MEDS: FOLIC ACID 1 MG TABLET PO (08:34)
[2022-05-05] MEDS: THIAMINE HCL 200 MG/2 ML VIAL 100 MG IV PUSH (08:37)
[2022-05-05] MEDS: predniSONE 20 MG TABLET PO (09:03)
[2022-05-05] MEDS: DIGOXIN INJ 250 MCG/ML 2 ML AMP (*BKC) IV PUSH (09:38)
[2022-05-05] MEDS: dilTIAZem HCl INJ 25 MG/5 ML VIAL 10 MG IV PUSH (10:06)
[2022-05-05] MEDS: dilTIAZem 100 MG/100 ML 100 MG/100 ML BAG IV CONT (10:07)
[2022-05-05 10:12] LABS: Creatinine Urine 79.7 mg/dL
[2022-05-05 10:52] LABS: Sodium Urine Random < 5 meq/L
[2022-05-05] MEDS: METOPROLOL TARTRATE 25 MG TABLET PO ×2 (11:22→17:41)
[2022-05-05 11:42] LABS: Alveolar/Arterial O2 Gradient 576.2 mmHg; Base Excess ABG 3.4 mEq/l (+/-2.0); Fractional Inspired Oxygen 95 %; Oxygen Content ABG 20.6 %vol (16.0-22.0); Oxygen Saturation ABG 91.2 % (95.0-100.0); Oxyhemoglobin 90.1 % THb (90.0-100.0); PCO2 ABG 42.2 mmHg (35.0-45.0); PO2 ABG 58.4 mmHg (80.0-100.0); PO2 FiO2 Ratio Arterial Blood 0.61 %; Total Hemoglobin 16.3 g/dL (12.0-18.0); pH ABG 7.439 (7.350-7.450)
[2022-05-05 11:43] LABS: Device HIGH FLOW THERAPY; Modified Allen's Test Pass; Site Drawn RIGHT RADIAL
[2022-05-05 12:17] LABS: Glucose Point of Care 183 mg/dl (65-105)
[2022-05-05] MEDS: PERFLUTREN LIPID MICROSPHERES 1.5 ML VIAL DILUTED TO 10 ML TOTAL VOLUME IV PUSH (14:20)
[2022-05-05 17:09] LABS: Vancomycin Trough 11.7 ug/mL (10.0-20.0)
[2022-05-05] MEDS: RIVAROXABAN 20 MG TABLET PO (17:41)
[2022-05-05 19:01] LABS: Glucose Point of Care 237 mg/dl (65-105)
[2022-05-05] MEDS: MENTHOL 10% / METHYL SALICYLATE 15% 57 GM TUBE 1 APPLIC TOPICAL (19:30)
[2022-05-05] MEDS: dilTIAZem 100 MG/100 ML 100 MG/100 ML BAG 10 MG IV CONT (22:31)
[2022-05-06] VITALS (23 sets, daily range): BP systolic 102–118; BP diastolic 63–82; PULSE 81–103; RESP 12–28; TEMP 35.7–36.6; O2SAT 89–98
[2022-05-06] MEDS: chlordiazePOXIDE (*CRX) 25 MG CAPSULE PO ×4 (00:51→17:45)
[2022-05-06] MEDS: METOPROLOL TARTRATE 25 MG TABLET PO ×4 (00:51→17:45)
[2022-05-06 01:09] LABS: Glucose Point of Care 160 mg/dl (65-105)
[2022-05-06 04:44] LABS: Basophils Percent Auto 0.2 % (0.2-1.2); Hematocrit 42.1 % (42.0-52.0); Hemoglobin 14.6 g/dL (14.0-18.0); Immature Granulocyte Absolute 0.36 K/mm3 (0.00-0.031); Immature Granulocyte Percent A 2.8 % (0-0.5); Lymphocytes Absolute Auto 0.58 K/mm3 (0.9-3.2); Lymphocytes Percent Auto 4.5 % (18.3-44.2); Mean Corpuscular HGB Conc 34.7 g/dl (32-36); Mean Corpuscular Volume 92.3 fl (80-100); Mean Platelet Volume 10.4 fl (7.4-10.4); Monocytes Absolute Auto 0.4 K/mm3 (0.1-0.6); Monocytes Percent Auto 3.4 % (2.6-8.5); Neutrophils Absolute Auto 11.6 K/mm3 (1.3-6.7); Neutrophils Percent Auto 89.1 % (45.5-73.1); Nucleated Red Blood Cells Perc 0.2 % (0.0-0.2); Platelet Count Result 158 k/mm3 (150-375); Red Blood Count 4.56 M/mm3 (4.6-6.20)
[2022-05-06 05:00] LABS: Alanine Aminotransferase 141 U/L (6-50); Alkaline Phosphatase 152 U/L (38-126); Anion Gap 6 mmol/L (8-16); Aspartate Amino Transferase 150 U/L (17-59); Bilirubin,Total 1.2 mg/dL (0.2-1.3); Blood Urea Nitrogen 35 mg/dL (9-20); Calcium 8.7 mg/dL (8.4-10.2); Carbon Dioxide 28 mmol/L (22-30); Chloride 97 mmol/L (98-107); Estimated CRCL calculation 74 ml/min; Estimated Glomerular Filt Rate > 60; Glucose 153 mg/dL (65-110); Sodium 131 mmol/L (137-145)
[2022-05-06 05:29] LABS: Hepatitis B Surface Antigen Negative (Negative)
[2022-05-06 05:34] LABS: HAV RESULT Negative (Negative); Hepatitis B Core IgM Result Negative (Negative)
[2022-05-06 05:46] LABS: Hepatitis C Virus Antibody Negative (Negative)
[2022-05-06] MEDS: predniSONE 20 MG TABLET PO (08:57)
[2022-05-06] MEDS: SIMVASTATIN 20 MG TABLET PO (08:57)
[2022-05-06] MEDS: FOLIC ACID 1 MG TABLET PO (08:58)
[2022-05-06] MEDS: THIAMINE HCL 200 MG/2 ML VIAL 100 MG IV PUSH (08:58)
[2022-05-06] MEDS: MULTIVITAMINS THERAPEUTIC TAB (*BKC) 1 TABLET PO (08:58)
[2022-05-06] MEDS: dilTIAZem 100 MG/100 ML 100 MG/100 ML BAG 10 MG IV CONT ×2 (09:00→21:00)
[2022-05-06 12:07] LABS: Glucose Point of Care 186 mg/dl (65-105)
--- NOTE | 2022-05-06 13:06 | PM.IMPN ---
Progress Note: A&P Assessment and Plan (1) CAP (community acquired pneumonia): Code(s): J18.9 - Pneumonia, unspecified organism Status: Acute Assessment and Plan: CTA chest with right lower, right middle and right upper lobe. Daughter mentions ETOH abuse to nurse, so with this presentation consider aspiration pneumonia. Will treat to cover for aspiration as well as high risk due to structural lung disease as emphysema noted on CTA. -Cefepime 2g q8h -Vancomycin -Azithromycin 500 mg po daily (2) Atrial fibrillation with RVR: Code(s): I48.91 - Unspecified atrial fibrillation Status: Acute Assessment and Plan: May 05 detected by telemetry and patient denied prior history May 05 metoprolol IV and p.o. initiated in lieu of atenolol (3) Acute exacerbation of chronic obstructive airways disease: Code(s): J44.1 - Chronic obstructive pulmonary disease with (acute) exacerbation Status: Acute Assessment and Plan: -Ipratropium - albuterol q4h -Methylprednisolone 40 mg IV q6h initially, 05/05 started steroid taper -Wean oxygen as tolerated (4) Hypertension: Code(s): I10 - Essential (primary) hypertension Status: Acute Assessment and Plan: Takes atenolol and amlodipine at home. Switch to metoprolol (5) Hyperlipidemia: Code(s): E78.5 - Hyperlipidemia, unspecified Status: Acute Assessment and Plan: Takes simvastatin 20 mg daily. Continue. (6) History of DVT (deep vein thrombosis): Code(s): Z86.718 - Personal history of other venous thrombosis and embolism Status: Acute Assessment and Plan: Takes rivaroxaban at home. 05/05 patient says it is for AAA with thrombus (7) Alcohol related disorder: Code(s): F10.99 - Alcohol use, unspecified with unspecified alcohol-induced disorder Status: Acute Assessment and Plan: Continue CIWA protocol, thiamine (8) Abnormal liver enzymes: Code(s): R74.8 - Abnormal levels of other serum enzymes Status: Acute Assessment and Plan: Likely due to alcohol 05/05 hepatitis panel pending (9) Bacteremia: Code(s): R78.81 - Bacteremia Status: Acute Assessment and Plan: with vegetation on valve with echo cardiogram continue IV antibiotics. Will likely need treated for endocarditis. Cardiology consult for possible COURTNEY Subjective Date/time seen: 05/06/22 13:06 no new complaints Exam Narrative: GENERAL: NAD, cooperative HEENT: Normocephalic, atraumatic, anicteric, nares clear, oropharynx moist and clear NECK:Supple CV: Normal S1, S2, RRR, No MRG RESP: Crackles to right base EXTREMITIES: Warm and well perfused, no clubbing, cyanosis, or edema. SKIN: warm, dry and intact. NEURO: CN II-XII grossly intact. Objective Data Vital Signs Vital Signs: Vital Signs - 24 hr 05/05/22 14:00 05/05/22 16:00 05/05/22 16:00 Temperature Pulse Rate 118 H 116 H Respiratory Rate Blood Pressure Pulse Oximetry 92 Oxygen Delivery High Flow Therapy with Na Oxygen Flow Rate 60 Fraction of Inspired Oxygen 94 05/05/22 17:41 05/05/22 16:00 05/05/22 18:00 Temperature 98.3 F Pulse Rate 119 H 120 H 93 Respiratory Rate 22 H Blood Pressure 121/75 Pulse Oximetry 88 L Oxygen Delivery Oxygen Flow Rate Fraction of Inspired Oxygen 05/05/22 18:49 05/05/22 20:00 05/05/22 20:00 Temperature 97.9 F Pulse Rate 96 98 105 H Respiratory Rate 20 Blood Pressure 140/75 Pulse Oximetry 98 Oxygen Delivery Oxygen Flow Rate Fraction of Inspired Oxygen 05/05/22 20:00 05/05/22 22:00 05/05/22 22:31 Temperature Pulse Rate 97 92 Respiratory Rate Blood Pressure Pulse Oximetry 98 Oxygen Delivery High Flow Therapy with Na Oxygen Flow Rate 60 Fraction of Inspired Oxygen 95 05/06/22 00:51 05/06/22 00:00 05/06/22
[2022-05-06] MEDS: RIVAROXABAN 20 MG TABLET PO (17:45)
[2022-05-06 18:39] LABS: Glucose Point of Care 271 mg/dl (65-105)
--- NOTE | 2022-05-06 18:46 | PM.CNCAR ---
Assessment and Plan Assessment and plan (1) Bacteremia: Code(s): R78.81 - Bacteremia Status: Acute Assessment and Plan: Patient with strep bacteremia who has an abnormal appearing aortic valve by surface ECHO. Of concern for endocarditis Counseled patient about endocarditis, which would prolong the need for IV antibiotics and put him at risk for valve damage if not treated appropriately Will plan on COURTNEY later this week when the patient's respiratory status has improved, since he will need conscious sedation for the procedure. (2) Atrial fibrillation with RVR: Code(s): I48.91 - Unspecified atrial fibrillation Status: Acute Assessment and Plan: New onset AFib RVR Rate now control with metoprolol Already taking Xarelto for his AAA thrombus and history of DVT (3) CAP (community acquired pneumonia): Code(s): J18.9 - Pneumonia, unspecified organism Status: Acute Assessment and Plan: Community-acquired pneumonia, on high-flow oxygen and antibiotics, improving (4) Acute exacerbation of chronic obstructive airways disease: Code(s): J44.1 - Chronic obstructive pulmonary disease with (acute) exacerbation Status: Acute Assessment and Plan: History of COPD on home O2 for activity History of Present Illness History of Present Illness Consult date/time: 05/06/22 18:46 Reason For Visit: RESPIRATORY FAILURE,PNEUMONIA,HYPOXIA Narrative: Donta Collins is a 71-year-old male whom I was asked to see at the request of Dr. Emeka Borrero for my advice and opinion regarding his AFib, positive blood cultures and vegetation on his echo. Sees Dr. Eve Sheth for his h/o AAA; no other heart disease. H/O COPD on home O2. The patient was admitted through the emergency room on 05/03/2022. He had an exacerbation of his COPD and pneumonia. He was initially placed on BiPAP, now on high-flow nasal oxygen.. He developed new onset atrial fibrillation on 05/05/2022 and started on metoprolol, IV Cardizem and his Xarelto (for history of DVT and also thrombus on his AAA) was continued. He had 2 blood cultures positive for Streptococcus pneumoniae. His echo showed a mass on one of the aortic valve leaflets, probably a calcification although vegetation could not be excluded. Review of Systems Constitutional: Constitutional: Denies fever(s) Eyes: Eyes: Reports no additional eye complaints ENT: Denies epistaxis Cardiovascular: Cardiovascular: Denies chest pain, Denies pedal edema, Denies lightheadedness and Denies dyspnea Respiratory: Respiratory: Reports chest congestion, Reports cough, Denies dyspnea and Reports dyspnea on exertion Gastrointestinal: Gastrointestinal: Denies abdominal pain and Denies hematochezia Comments: No history of any esophageal problems, strictures or swallowing problems. Genitourinary: Genitourinary: Denies hematuria and Denies dysuria Musculoskeletal: Musculoskeletal: Reports no additional musculoskeletal complaints Integumentary/Breasts: Skin/Breast: Reports system reviewed and no additional complaints, except as docu Neurologic: Reports system reviewed and no additional complaints, except as documented, Denies behavioral changes and Denies confusion Psychiatric: Psychiatric: Denies behavioral changes and Denies confusion PMFSH Past Medical History Medical History COPD exacerbation History of DVT (deep vein thrombosis) History of prostate cancer Hyperlipidemia Hypertension Sleep apnea Thoracic aortic aneurysm without rupture Surgical History Surgical History H/O cataract extraction H/O foot surgery Family History Family History Mother Family history of lung cancer Social History Social History (Reviewed 05/06/22 @ 19:13 by Tamra Flanagan
[2022-05-06] MEDS: IPRATROPIUM BR 0.02% INH SOLN 0.5 MG/2.5 ML VIAL INHALATION (21:30)
[2022-05-07] VITALS (19 sets, daily range): BP systolic 103–111; BP diastolic 60–80; PULSE 82–114; RESP 20–24; TEMP 36.1–36.8; O2SAT 91–97
[2022-05-07] MEDS: METOPROLOL TARTRATE 25 MG TABLET PO ×5 (01:10→23:59)
[2022-05-07] MEDS: chlordiazePOXIDE (*CRX) 25 MG CAPSULE PO ×5 (01:11→23:59)
[2022-05-07 05:40] LABS: Basophils Absolute Auto 0.1 K/mm3 (0.0-0.1); Basophils Percent Auto 0.9 % (0.2-1.2); Hematocrit 40.9 % (42.0-52.0); Immature Granulocyte Absolute 0.57 K/mm3 (0.00-0.031); Immature Granulocyte Percent A 4.8 % (0-0.5); Lymphocytes Absolute Auto 0.61 K/mm3 (0.9-3.2); Lymphocytes Percent Auto 5.2 % (18.3-44.2); Mean Corpuscular HGB Conc 34.2 g/dl (32-36); Mean Corpuscular Hemoglobin 31.7 pg (26-34); Mean Corpuscular Volume 92.5 fl (80-100); Mean Platelet Volume 10.2 fl (7.4-10.4); Monocytes Absolute Auto 0.5 K/mm3 (0.1-0.6); Monocytes Percent Auto 4.3 % (2.6-8.5); Neutrophils Percent Auto 84.8 % (45.5-73.1); Platelet Count Result 189 k/mm3 (150-375); Red Blood Count 4.42 M/mm3 (4.6-6.20); White Blood Count 11.8 K/mm3 (4.5-10.0)
[2022-05-07 05:49] LABS: Alanine Aminotransferase 231 U/L (6-50); Anion Gap 3 mmol/L (8-16); Aspartate Amino Transferase 167 U/L (17-59); Blood Urea Nitrogen 31 mg/dL (9-20); Calcium 8.3 mg/dL (8.4-10.2); Carbon Dioxide 31 mmol/L (22-30); Chloride 94 mmol/L (98-107); Estimated CRCL calculation 84 ml/min; Estimated Glomerular Filt Rate > 60; Glucose 163 mg/dL (65-110); Potassium 3.7 mmol/L (3.4-5.0); Sodium 128 mmol/L (137-145)
[2022-05-07 06:13] LABS: Vancomycin Trough 16.5 ug/mL (10.0-20.0)
[2022-05-07] MEDS: dilTIAZem 100 MG/100 ML 100 MG/100 ML BAG 10 MG IV CONT ×2 (08:28→17:26)
[2022-05-07] MEDS: MULTIVITAMINS THERAPEUTIC TAB (*BKC) 1 TABLET PO (08:30)
[2022-05-07] MEDS: FOLIC ACID 1 MG TABLET PO (08:30)
[2022-05-07] MEDS: THIAMINE HCL 200 MG/2 ML VIAL 100 MG IV PUSH (08:30)
[2022-05-07] MEDS: predniSONE 20 MG TABLET PO (08:30)
[2022-05-07] MEDS: SIMVASTATIN 20 MG TABLET PO (08:30)
--- NOTE | 2022-05-07 10:23 | PM.PNCARD ---
Progress Note: A&P Assessment and Plan (1) Bacteremia: Code(s): R78.81 - Bacteremia Status: Acute Assessment and Plan: Patient with strep bacteremia who has an abnormal appearing aortic valve by surface ECHO. Of concern for endocarditis Counseled patient about endocarditis, which would prolong the need for IV antibiotics and put him at risk for valve damage if not treated appropriately Remains on high flow O2 with FiO2 at 70%. Will plan on COURTNEY later this week when the patient's respiratory status has improved, since he will need conscious sedation for the procedure. (2) Atrial fibrillation with RVR: Code(s): I48.91 - Unspecified atrial fibrillation Status: Acute Assessment and Plan: New onset AFib RVR Rate now control with metoprolol Already taking Xarelto for his AAA thrombus and history of DVT (3) CAP (community acquired pneumonia): Code(s): J18.9 - Pneumonia, unspecified organism Status: Acute Assessment and Plan: Community-acquired pneumonia, on high-flow oxygen and antibiotics, improving (4) Acute exacerbation of chronic obstructive airways disease: Code(s): J44.1 - Chronic obstructive pulmonary disease with (acute) exacerbation Status: Acute Assessment and Plan: History of COPD on home O2 for activity Subjective Date/time seen: 05/07/22 10:23 Cardiology follow up for atrial fibrillation, aortic valve mass He's feeling about the same today. Remains on high flow O2 but is breathing comfortably. Denies any chest pain or palpitations. Review of Systems Constitutional: Constitutional: Denies fever(s) Eyes: Eyes: Reports no additional eye complaints ENT: Denies epistaxis Cardiovascular: Cardiovascular: Denies chest pain, Denies pedal edema, Denies lightheadedness, Denies dyspnea and Reports dyspnea on exertion Respiratory: Respiratory: Reports chest congestion, Reports cough, Denies dyspnea and Reports dyspnea on exertion Gastrointestinal: Gastrointestinal: Denies abdominal pain and Denies hematochezia Genitourinary: Genitourinary: Denies hematuria and Denies dysuria Musculoskeletal: Musculoskeletal: Reports no additional musculoskeletal complaints Integumentary/Breasts: Skin/Breast: Reports system reviewed and no additional complaints, except as docu Neurologic: Reports system reviewed and no additional complaints, except as documented, Denies behavioral changes and Denies confusion Psychiatric: Psychiatric: Denies behavioral changes and Denies confusion Exam Const: General: cooperative and comfortable; No confusion Orientation/consciousness: oriented to person, patient oriented x3 and No confusion Other: Older male comfortable in bed, on high-flow oxygen, alert and conversant HENMT: Mouth: Yes moist mucous membranes Eyes: EOM: EOMs intact bilaterally Neck: Neck: supple and no JVD Thyroid: thyroid normal Resp: Effort & Inspection: normal respiratory effort Auscultation: crackles Cardio: Rate: regular rate Rhythm: regular rhythm Heart sounds: no murmurs GI: Inspection: normal to inspection Skin: General skin exam: normal color Neuro: General: oriented to person, patient oriented x3 and No confusion Extrem: Right lower extremity: no edema Left lower extremity: no edema Psych: Appearance: grossly normal Mental Status: mental status grossly normal Objective Data Vital Signs Vital Signs: Vital Signs - 24 hr 05/06/22 11:08 05/06/22 12:00 05/06/22 12:00 Temperature 35.7 C L Pulse Rate 98 94 103 H Respiratory Rate 12 Blood Pressure 113/63 Pulse Oximetry 94 Oxygen Delivery Oxygen Flow Rate Fraction of Inspired Oxygen 05/06/22 12:00 05/06/22 16:00 05/06/22 17:45 Temperature 36.0 C L Pulse Rate 94 96 Respiratory Rate 28 H Blood Pressure 112/82 Pulse Oximetry 96 94 Oxygen Delivery High Flow Therapy with Na Oxygen Flow Rate 60 Fraction of Inspired Oxygen 8
--- NOTE | 2022-05-07 11:59 | PM.IMPN ---
Progress Note: A&P Assessment and Plan (1) CAP (community acquired pneumonia): Code(s): J18.9 - Pneumonia, unspecified organism Status: Acute Assessment and Plan: CTA chest with right lower, right middle and right upper lobe. Daughter mentions ETOH abuse to nurse, so with this presentation consider aspiration pneumonia. Will treat to cover for aspiration as well as high risk due to structural lung disease as emphysema noted on CTA. -Cefepime 2g q8h -Vancomycin -Azithromycin 500 mg po daily (2) Atrial fibrillation with RVR: Code(s): I48.91 - Unspecified atrial fibrillation Status: Acute Assessment and Plan: May 05 detected by telemetry and patient denied prior history May 05 metoprolol IV and p.o. initiated in lieu of atenolol (3) Acute exacerbation of chronic obstructive airways disease: Code(s): J44.1 - Chronic obstructive pulmonary disease with (acute) exacerbation Status: Acute Assessment and Plan: -Ipratropium - albuterol q4h -Methylprednisolone 40 mg IV q6h initially, 05/05 started steroid taper -Wean oxygen as tolerated (4) Hypertension: Code(s): I10 - Essential (primary) hypertension Status: Acute Assessment and Plan: Takes atenolol and amlodipine at home. Switch to metoprolol (5) Hyperlipidemia: Code(s): E78.5 - Hyperlipidemia, unspecified Status: Acute Assessment and Plan: Takes simvastatin 20 mg daily. Continue. (6) History of DVT (deep vein thrombosis): Code(s): Z86.718 - Personal history of other venous thrombosis and embolism Status: Acute Assessment and Plan: Takes rivaroxaban at home. 05/05 patient says it is for AAA with thrombus (7) Alcohol related disorder: Code(s): F10.99 - Alcohol use, unspecified with unspecified alcohol-induced disorder Status: Acute Assessment and Plan: Continue CIWA protocol, thiamine (8) Abnormal liver enzymes: Code(s): R74.8 - Abnormal levels of other serum enzymes Status: Acute Assessment and Plan: Likely due to alcohol 05/05 hepatitis panel pending (9) Bacteremia: Code(s): R78.81 - Bacteremia Status: Acute Assessment and Plan: with vegetation on valve with echo cardiogram continue IV antibiotics. Will likely need treated for endocarditis. Cardiology consult for possible COURTNEY Subjective Date/time seen: 05/07/22 11:59 no new complaints. Exam Narrative: GENERAL: NAD, cooperative HEENT: Normocephalic, atraumatic, anicteric, nares clear, oropharynx moist and clear NECK:Supple CV: Normal S1, S2, RRR, No MRG RESP: Crackles to right base EXTREMITIES: Warm and well perfused, no clubbing, cyanosis, or edema. SKIN: warm, dry and intact. NEURO: CN II-XII grossly intact. Objective Data Vital Signs Vital Signs: Vital Signs - 24 hr 05/06/22 12:00 05/06/22 12:00 05/06/22 12:00 Temperature 96.2 F L Pulse Rate 94 103 H Respiratory Rate 12 Blood Pressure 113/63 Pulse Oximetry 94 96 Oxygen Delivery High Flow Therapy with Na Oxygen Flow Rate 60 Fraction of Inspired Oxygen 80 05/06/22 16:00 05/06/22 17:45 05/06/22 14:00 Temperature 96.8 F L Pulse Rate 94 96 101 H Respiratory Rate 28 H Blood Pressure 112/82 Pulse Oximetry 94 Oxygen Delivery Oxygen Flow Rate Fraction of Inspired Oxygen 05/06/22 16:00 05/06/22 16:00 05/06/22 17:54 Temperature Pulse Rate 97 99 Respiratory Rate Blood Pressure Pulse Oximetry 96 Oxygen Delivery High Flow Therapy with Na Oxygen Flow Rate 60 Fraction of Inspired Oxygen 80 05/06/22 21:00 05/06/22 20:00 05/06/22 21:31 Temperature 97.4 F L Pulse Rate 90 87 83 Respiratory Rate 16 16 Blood Pressure 118/81 Pulse Oximetry 95 Oxygen Delivery Oxygen Flow Rate Fraction of Inspired Oxygen 05/06/22 21:31 05/06/22
[2022-05-07 13:49] LABS: Glucose Point of Care 154 mg/dl (65-105)
[2022-05-07 16:50] LABS: Glucose Point of Care 188 mg/dl (65-105)
[2022-05-07] MEDS: RIVAROXABAN 20 MG TABLET PO (17:26)
[2022-05-08] VITALS (24 sets, daily range): BP systolic 96–122; BP diastolic 62–81; PULSE 80–136; RESP 16–20; TEMP 36.6–37.2; O2SAT 88–98
[2022-05-08 00:02] LABS: Glucose Point of Care 195 mg/dl (65-105)
[2022-05-08] MEDS: dilTIAZem 100 MG/100 ML 100 MG/100 ML BAG 10 MG IV CONT ×3 (03:04→23:11)
[2022-05-08 05:05] LABS: Basophils Absolute Auto 0.1 K/mm3 (0.0-0.1); Basophils Percent Auto 0.5 % (0.2-1.2); Eosinophils Percent Auto 0.1 % (0-4.4); Hematocrit 40.9 % (42.0-52.0); Hemoglobin 14.1 g/dL (14.0-18.0); Immature Granulocyte Absolute 0.61 K/mm3 (0.00-0.031); Immature Granulocyte Percent A 4.5 % (0-0.5); Lymphocytes Absolute Auto 0.96 K/mm3 (0.9-3.2); Lymphocytes Percent Auto 7.1 % (18.3-44.2); Mean Corpuscular HGB Conc 34.5 g/dl (32-36); Mean Corpuscular Hemoglobin 31.2 pg (26-34); Mean Corpuscular Volume 90.5 fl (80-100); Mean Platelet Volume 10.5 fl (7.4-10.4); Monocytes Absolute Auto 0.8 K/mm3 (0.1-0.6); Monocytes Percent Auto 5.8 % (2.6-8.5); Platelet Count Result 268 k/mm3 (150-375); Red Blood Count 4.52 M/mm3 (4.6-6.20); Red Cell Distribution Width 13.9 % (11.5-14.5); White Blood Count 13.5 K/mm3 (4.5-10.0)
[2022-05-08 05:10] LABS: Anion Gap 3 mmol/L (8-16); Blood Urea Nitrogen 35 mg/dL (9-20); Calcium 8.2 mg/dL (8.4-10.2); Carbon Dioxide 34 mmol/L (22-30); Chloride 95 mmol/L (98-107); Estimated CRCL calculation 94 ml/min; Estimated Glomerular Filt Rate > 60; Glucose 127 mg/dL (65-110); Potassium 3.6 mmol/L (3.4-5.0); Sodium 132 mmol/L (137-145)
[2022-05-08 05:40] LABS: Atypical Lymphocytes Present; Macrocytosis 1+ (NORMAL); Platelet Estimate Adequate (Adequate); Schistocytes None Seen (NORMAL); Stomatocytes 1+ (NORMAL)
[2022-05-08] MEDS: METOPROLOL TARTRATE 25 MG TABLET PO ×4 (06:26→23:14)
[2022-05-08] MEDS: chlordiazePOXIDE (*CRX) 25 MG CAPSULE PO (06:26)
[2022-05-08] MEDS: SIMVASTATIN 20 MG TABLET PO (09:04)
[2022-05-08] MEDS: predniSONE 20 MG TABLET PO (09:04)
[2022-05-08] MEDS: FOLIC ACID 1 MG TABLET PO (09:04)
[2022-05-08] MEDS: MULTIVITAMINS THERAPEUTIC TAB (*BKC) 1 TABLET PO (09:05)
[2022-05-08] MEDS: THIAMINE HCL 200 MG/2 ML VIAL 100 MG IV PUSH (09:05)
--- NOTE | 2022-05-08 11:36 | PM.IMPN ---
Progress Note: A&P Assessment and Plan (1) CAP (community acquired pneumonia): Code(s): J18.9 - Pneumonia, unspecified organism Status: Acute Assessment and Plan: CTA chest with right lower, right middle and right upper lobe. Daughter mentions ETOH abuse to nurse, so with this presentation consider aspiration pneumonia. Will treat to cover for aspiration as well as high risk due to structural lung disease as emphysema noted on CTA. -Cefepime 2g q8h - repeat cultures. -Azithromycin has been completed - Continue Airvo for respiratory support. (2) Atrial fibrillation with RVR: Code(s): I48.91 - Unspecified atrial fibrillation Status: Acute Assessment and Plan: patient is currently on Cardizem drip. Continue metoprolol. Xarelto (3) Acute exacerbation of chronic obstructive airways disease: Code(s): J44.1 - Chronic obstructive pulmonary disease with (acute) exacerbation Status: Acute Assessment and Plan: -Ipratropium - albuterol q4h -Methylprednisolone 40 mg IV q6h initially, 05/05 started steroid taper -Wean oxygen as tolerated (4) Hypertension: Code(s): I10 - Essential (primary) hypertension Status: Acute Assessment and Plan: Takes atenolol and amlodipine at home. Switch to metoprolol (5) Hyperlipidemia: Code(s): E78.5 - Hyperlipidemia, unspecified Status: Acute Assessment and Plan: Takes simvastatin 20 mg daily. Continue. (6) History of DVT (deep vein thrombosis): Code(s): Z86.718 - Personal history of other venous thrombosis and embolism Status: Acute Assessment and Plan: Takes rivaroxaban at home. 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 No withdrawal noted (8) Abnormal liver enzymes: Code(s): R74.8 - Abnormal levels of other serum enzymes Status: Acute Assessment and Plan: Likely due to alcohol 05/05 hepatitis panel pending (9) Bacteremia: Code(s): R78.81 - Bacteremia Status: Acute Assessment and Plan: with vegetation on valve with echocardiogram continue IV antibiotics. Will likely need treated for endocarditis. Cardiology consult for possible COURTNEY - plan for COURTNEY once more medically stable from respiratory standpoiny Repeat cultures Subjective Date/time seen: 05/08/22 11:36 No new complaints Exam Narrative: GENERAL: NAD, cooperative HEENT: Normocephalic, atraumatic, anicteric, nares clear, oropharynx moist and clear NECK:Supple CV: Normal S1, S2, RRR, No MRG RESP: Crackles to right base EXTREMITIES: Warm and well perfused, no clubbing, cyanosis, or edema. SKIN: warm, dry and intact. NEURO: CN II-XII grossly intact. Objective Data Vital Signs Vital Signs: Vital Signs - 24 hr 05/07/22 12:00 05/07/22 12:00 05/07/22 12:00 Temperature 97 F L Pulse Rate 114 H 102 H Respiratory Rate 20 Blood Pressure 109/74 Pulse Oximetry 93 92 Oxygen Delivery High Flow Therapy with Na Oxygen Flow Rate 55 Fraction of Inspired Oxygen 70 05/07/22 16:09 05/07/22 16:00 05/07/22 16:00 Temperature 96.9 F L Pulse Rate 100 89 Respiratory Rate 20 Blood Pressure 108/64 Pulse Oximetry 92 93 97 Oxygen Delivery High Flow Therapy with Na High Flow Therapy with Na Oxygen Flow Rate 55 55 Fraction of Inspired Oxygen 72 70 05/07/22 16:00 05/07/22 14:00 05/07/22 18:00 Temperature Pulse Rate 98 96 96 Respiratory Rate Blood Pressure Pulse Oximetry Oxygen Delivery Oxygen Flow Rate Fraction of Inspired Oxygen 05/07/22 20:31 05/07/22 20:00 05/07/22 23:59 Temperature 98.3 F Pulse Rate 92 87 Respiratory Rate 20 Blood Pressure 109/60 Pulse Oximetry 94 94 Oxyg
--- NOTE | 2022-05-08 12:48 | PM.PNCARD ---
Progress Note: A&P Assessment and Plan (1) Bacteremia: Code(s): R78.81 - Bacteremia Status: Acute Assessment and Plan: Patient with strep bacteremia who has an abnormal appearing aortic valve by surface ECHO. Of concern for endocarditis Counseled patient about endocarditis, which would prolong the need for IV antibiotics and put him at risk for valve damage if not treated appropriately Remains on high flow O2 with FiO2 at 70%. Will plan on COURTNEY later this week when the patient's respiratory status has improved, since he will need conscious sedation for the procedure. (2) Atrial fibrillation with RVR: Code(s): I48.91 - Unspecified atrial fibrillation Status: Acute Assessment and Plan: New onset AFib RVR Had been rate controlled with metoprolol and diltiazem drip Some tachycardia this afternoon but he is asymptomatic Will leave him on current doses of diltiazem and metoprolol - want to avoid higher dose beta evelia because of his COPD and would like to avoid use of amiodarone for this same reason. If he becomes more tachycardic or symptomatic can increase diltiazem to 15mg/hr Already taking Xarelto for his AAA thrombus and history of DVT (3) CAP (community acquired pneumonia): Code(s): J18.9 - Pneumonia, unspecified organism Status: Acute Assessment and Plan: Community-acquired pneumonia, on high-flow oxygen and antibiotics, improving (4) Acute exacerbation of chronic obstructive airways disease: Code(s): J44.1 - Chronic obstructive pulmonary disease with (acute) exacerbation Status: Acute Assessment and Plan: History of COPD on home O2 for activity Subjective Date/time seen: 05/08/22 12:48 Cardiology follow up for atrial fibrillation, aortic valve mass He's feeling about the same today.? Remains on high flow O2 but is breathing comfortably.? Denies any chest pain or palpitations.? Date of service 05/08/22: Uneventful night. O2 requirements the same today. He had been well rate controlled but this afternoon has become tachycardic in the 110-125 range. He does not feel any palpitations, shortness of breath, or chest pain Review of Systems Constitutional: Constitutional: Denies fever(s) Eyes: Eyes: Reports no additional eye complaints ENT: Denies epistaxis Cardiovascular: Cardiovascular: Denies chest pain, Denies pedal edema, Denies lightheadedness, Denies dyspnea and Reports dyspnea on exertion Respiratory: Respiratory: Reports chest congestion, Reports cough, Denies dyspnea and Reports dyspnea on exertion Gastrointestinal: Gastrointestinal: Denies abdominal pain and Denies hematochezia Genitourinary: Genitourinary: Denies hematuria and Denies dysuria Musculoskeletal: Musculoskeletal: Reports no additional musculoskeletal complaints Integumentary/Breasts: Skin/Breast: Reports system reviewed and no additional complaints, except as docu Neurologic: Reports system reviewed and no additional complaints, except as documented, Denies behavioral changes and Denies confusion Psychiatric: Psychiatric: Denies behavioral changes and Denies confusion Exam Const: General: cooperative and comfortable; No confusion Orientation/consciousness: oriented to person, patient oriented x3 and No confusion Other: Older male sitting up in the chair. HENMT: Mouth: Yes moist mucous membranes Eyes: EOM: EOMs intact bilaterally Neck: Neck: supple and no JVD Thyroid: thyroid normal Resp: Effort & Inspection: normal respiratory effort Auscultation: crackles and diminished lung sounds Cardio: Rate: tachycardic Rhythm: abnormal rhythm irregularly irregular Heart sounds: no murmurs GI: Inspection: normal to inspection Skin: General skin exam: normal color Neuro: General: oriented to person, patient oriented x3 and No confusion Extrem: Right lower extremity: no edema Left lower extremity: no edema Psych: Appearance: grossly normal M
[2022-05-08] MEDS: RIVAROXABAN 20 MG TABLET PO (17:41)
[2022-05-09] VITALS (20 sets, daily range): BP systolic 98–122; BP diastolic 60–78; PULSE 74–122; RESP 12–20; TEMP 36.4–37.1; O2SAT 89–96
[2022-05-09 04:26] LABS: Basophils Absolute Auto 0.1 K/mm3 (0.0-0.1); Basophils Percent Auto 0.4 % (0.2-1.2); Eosinophils Absolute Auto 0.1 K/mm3 (0-0.3); Eosinophils Percent Auto 0.5 % (0-4.4); Hemoglobin 14.1 g/dL (14.0-18.0); Immature Granulocyte Absolute 0.64 K/mm3 (0.00-0.031); Immature Granulocyte Percent A 3.9 % (0-0.5); Lymphocytes Absolute Auto 1.06 K/mm3 (0.9-3.2); Lymphocytes Percent Auto 6.4 % (18.3-44.2); Mean Corpuscular HGB Conc 33.6 g/dl (32-36); Mean Corpuscular Hemoglobin 31.5 pg (26-34); Mean Platelet Volume 10.1 fl (7.4-10.4); Monocytes Absolute Auto 0.8 K/mm3 (0.1-0.6); Monocytes Percent Auto 4.5 % (2.6-8.5); Neutrophils Absolute Auto 13.9 K/mm3 (1.3-6.7); Neutrophils Percent Auto 84.3 % (45.5-73.1); Platelet Count Result 303 k/mm3 (150-375); Red Blood Count 4.47 M/mm3 (4.6-6.20); Red Cell Distribution Width 14.2 % (11.5-14.5); White Blood Count 16.5 K/mm3 (4.5-10.0)
[2022-05-09 04:44] LABS: Anion Gap 4 mmol/L (8-16); Blood Urea Nitrogen 29 mg/dL (9-20); Calcium 8.1 mg/dL (8.4-10.2); Carbon Dioxide 33 mmol/L (22-30); Chloride 99 mmol/L (98-107); Estimated CRCL calculation 109 ml/min; Estimated Glomerular Filt Rate > 60; Glucose 120 mg/dL (65-110); Potassium 3.8 mmol/L (3.4-5.0); Sodium 136 mmol/L (137-145)
[2022-05-09] MEDS: METOPROLOL TARTRATE 25 MG TABLET PO ×4 (05:24→23:25)
--- NOTE | 2022-05-09 08:31 | PM.PNCARD ---
Progress Note: A&P Assessment and Plan (1) Bacteremia: Code(s): R78.81 - Bacteremia Status: Acute Assessment and Plan: Patient with strep bacteremia who has an abnormal appearing aortic valve by surface ECHO. Of concern for endocarditis Counseled patient about endocarditis, which would prolong the need for IV antibiotics and put him at risk for valve damage if not treated appropriately Remains on high flow O2 with FiO2 now increased to 80%. Will plan on COURTNEY later this week when the patient's respiratory status has improved, since he will need conscious sedation for the procedure. (2) Atrial fibrillation with RVR: Code(s): I48.91 - Unspecified atrial fibrillation Status: Acute Assessment and Plan: New onset AFib RVR Reasonably rate controlled on diltiazem and metoprolol. Discontinue diltiazem drip, shift to p.o. Would increase diltiazem dose if he becomes more tachycardic. Already taking Xarelto for his AAA thrombus and history of DVT (3) CAP (community acquired pneumonia): Code(s): J18.9 - Pneumonia, unspecified organism Status: Acute Assessment and Plan: Community-acquired pneumonia, on high-flow oxygen and antibiotics, improving (4) Acute exacerbation of chronic obstructive airways disease: Code(s): J44.1 - Chronic obstructive pulmonary disease with (acute) exacerbation Status: Acute Assessment and Plan: History of COPD on home O2 for activity Subjective Date/time seen: 05/09/22 08:31 Cardiology follow up for atrial fibrillation, aortic valve mass Review of Systems Constitutional: Constitutional: Denies fever(s) Eyes: Eyes: Reports no additional eye complaints ENT: Denies epistaxis Cardiovascular: Cardiovascular: Denies chest pain, Denies pedal edema, Denies lightheadedness, Denies dyspnea and Reports dyspnea on exertion Respiratory: Respiratory: Reports chest congestion, Reports cough, Denies dyspnea and Reports dyspnea on exertion Gastrointestinal: Gastrointestinal: Denies abdominal pain and Denies hematochezia Genitourinary: Genitourinary: Denies hematuria and Denies dysuria Musculoskeletal: Musculoskeletal: Reports no additional musculoskeletal complaints Integumentary/Breasts: Skin/Breast: Reports system reviewed and no additional complaints, except as docu Neurologic: Reports system reviewed and no additional complaints, except as documented, Denies behavioral changes and Denies confusion Psychiatric: Psychiatric: Denies behavioral changes and Denies confusion Exam Const: General: cooperative and comfortable; No confusion Orientation/consciousness: oriented to person, patient oriented x3 and No confusion Other: Older male sitting up in the chair. HENMT: Mouth: Yes moist mucous membranes Eyes: EOM: EOMs intact bilaterally Neck: Neck: supple and no JVD Thyroid: thyroid normal Resp: Effort & Inspection: normal respiratory effort Auscultation: crackles and diminished lung sounds Cardio: Rate: regular rate and tachycardic Rhythm: abnormal rhythm irregularly irregular Heart sounds: no murmurs GI: Inspection: normal to inspection Skin: General skin exam: normal color Other: Some areas of ecchymosis due to phlebotomy but no splinter hemorrhages, Janeway lesions or Osler's nodes Neuro: General: oriented to person, patient oriented x3 and No confusion Extrem: Right lower extremity: no edema Left lower extremity: no edema Psych: Appearance: grossly normal Mental Status: mental status grossly normal Objective Data Vital Signs Vital Signs: Vital Signs - 24 hr 05/08/22 10:00 05/08/22 11:59 05/08/22 10:00 Temperature Pulse Rate 102 H 124 H 102 H Respiratory Rate Blood Pressure Pulse Oximetry Oxygen Delivery Oxygen Flow Rate Fraction of Inspired Oxygen 05/08/22 12:00 05/08/22 12:00 05/08/22 13:24 Temperature 36.8 C Pulse Rate 124 H 136 H 108 H Respiratory Ra
[2022-05-09] MEDS: dilTIAZem 100 MG/100 ML 100 MG/100 ML BAG 10 MG IV CONT (09:20)
[2022-05-09] MEDS: THIAMINE HCL 200 MG/2 ML VIAL 100 MG IV PUSH (09:22)
[2022-05-09] MEDS: FOLIC ACID 1 MG TABLET PO (09:23)
[2022-05-09] MEDS: SIMVASTATIN 20 MG TABLET PO (09:23)
[2022-05-09] MEDS: MULTIVITAMINS THERAPEUTIC TAB (*BKC) 1 TABLET PO (09:23)
[2022-05-09] MEDS: predniSONE 20 MG TABLET PO (09:23)
[2022-05-09] MEDS: dilTIAZem HCL 60 MG TABLET PO ×3 (12:14→23:25)
[2022-05-09] MEDS: RIVAROXABAN 20 MG TABLET PO (17:14)
--- NOTE | 2022-05-09 17:48 | PM.IMPN ---
Progress Note: A&P Assessment and Plan (1) CAP (community acquired pneumonia): Code(s): J18.9 - Pneumonia, unspecified organism Status: Acute Assessment and Plan: CTA chest with right lower, right middle and right upper lobe. Daughter mentions ETOH abuse to nurse, so with this presentation consider aspiration pneumonia. Will treat to cover for aspiration as well as high risk due to structural lung disease as emphysema noted on CTA. -Cefepime 2g q8h -repeat cultures. -Azithromycin has been completed -Continue Airvo for respiratory support. (2) Atrial fibrillation with RVR: Code(s): I48.91 - Unspecified atrial fibrillation Status: Acute Assessment and Plan: Transition to oral Cardizem, metoprolol and Xarelto, appreciate cardiology consultation (3) Acute exacerbation of chronic obstructive airways disease: Code(s): J44.1 - Chronic obstructive pulmonary disease with (acute) exacerbation Status: Acute Assessment and Plan: Weaning steroids, on prednisone (4) Hypertension: Code(s): I10 - Essential (primary) hypertension Status: Acute Assessment and Plan: Takes atenolol and amlodipine at home. Switch to metoprolol (5) Hyperlipidemia: Code(s): E78.5 - Hyperlipidemia, unspecified Status: Acute Assessment and Plan: Takes simvastatin 20 mg daily. Continue. (6) History of DVT (deep vein thrombosis): Code(s): Z86.718 - Personal history of other venous thrombosis and embolism Status: Acute Assessment and Plan: Takes rivaroxaban at home. 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 No withdrawal noted (8) Abnormal liver enzymes: Code(s): R74.8 - Abnormal levels of other serum enzymes Status: Acute Assessment and Plan: Repeat LFTs pending (9) Bacteremia: Code(s): R78.81 - Bacteremia Status: Acute Assessment and Plan: with vegetation on valve with echocardiogram continue IV antibiotics will likely need treated for endocarditis. cardiology consult for possible COURTNEY - plan for COURTNEY once more medically stable from respiratory standpoint repeat cultures Plan DVT prophylaxis with Xarelto GI prophylaxis not indicated Code status full code Subjective Date/time seen: 05/09/22 17:48 Interval history: No overnight events noted. No chest pain or shortness of breath. No nausea, vomiting or diarrhea. No fevers or chills. Review of Systems Review of Systems: 12 point review of systems was assessed and was negative except as noted in the HPI Exam Narrative: General: No acute distress, alert and oriented per baseline HEENT: Atraumatic, normocephalic, mucous membranes moist CV: Regular rate and rhythm, S1, S2 Lungs: Clear to auscultation bilaterally, no rales or crackles noted, no wheezes, good air entry Abdomen: Soft, nontender, nondistended Extremities: Normal to inspection Skin: No rashes noted, no lesions or wounds seen Psych: Euthymic, normal affect Objective Data Vital Signs Vital Signs: Vital Signs - 24 hr 05/08/22 18:00 05/08/22 20:36 05/08/22 20:00 Temperature 98.6 F Pulse Rate 105 H 80 86 Respiratory Rate 20 Blood Pressure 96/65 L Pulse Oximetry 98 Oxygen Delivery Oxygen Flow Rate Fraction of Inspired Oxygen 05/08/22 22:00 05/08/22 23:11 05/08/22 23:14 Temperature Pulse Rate 86 93 93 Respiratory Rate Blood Pressure Pulse Oximetry Oxygen Delivery Oxygen Flow Rate Fraction of Inspired Oxygen 05/09/22 00:25 05/09/22 00:00 05/09/22 01:50 Temperature 98.4 F Pulse Rate 76 93 84 Respiratory Rate 20 18 Blood Pressure 110/78 Pulse Oximetry 95 94 Oxygen Delivery High Flow
[2022-05-10] VITALS (21 sets, daily range): BP systolic 97–120; BP diastolic 62–69; PULSE 71–128; RESP 14–20; TEMP 36–37; O2SAT 89–98
[2022-05-10] MEDS: METOPROLOL TARTRATE 25 MG TABLET PO ×4 (05:51→23:48)
[2022-05-10] MEDS: dilTIAZem HCL 60 MG TABLET PO ×4 (05:52→23:48)
--- NOTE | 2022-05-10 08:29 | PM.IMPN ---
Progress Note: A&P Assessment and Plan (1) CAP (community acquired pneumonia): Code(s): J18.9 - Pneumonia, unspecified organism Status: Acute Assessment and Plan: CTA chest with right lower, right middle and right upper lobe. Daughter mentions ETOH abuse to nurse, so with this presentation consider aspiration pneumonia. Will treat to cover for aspiration as well as high risk due to structural lung disease as emphysema noted on CTA. -Cefepime 2g q8h, started 05/04/22 (day 8 abx today 05/10/22) -Cultures positive for strep pneum, repeat blood cx negative -Azithromycin has been completed -Continue Airvo for respiratory support, weanin/22: Down to 45L and 75% FiO2 from 55L and 80% yesterday, cont to wean as tolerated -Concern for endocarditis, COURTNEY planned later by cardio when resp status stabilized 05/10: Consult to pulm placed today, confirm no further interventions needed for resp failure, would expect more resolution/rapid improvement by now (2) Atrial fibrillation with RVR: Code(s): I48.91 - Unspecified atrial fibrillation Status: Acute Assessment and Plan: Cont oral Cardizem 60 mg q6h, metoprolol 25 mg q6h, and Xarelto, appreciate cardiology consultation 05/10/22: in afib on tele today (3) Acute exacerbation of chronic obstructive airways disease: Code(s): J44.1 - Chronic obstructive pulmonary disease with (acute) exacerbation Status: Acute Assessment and Plan: Weaning steroids, on prednisone 20 mg daily, will d/c today Cont nebs with albuterol/ipratropium Hypercapnia noted, would recommend BiPAP overnight, will give Restoril and Ativan as needed so patient is able to tolerate BiPAP to see if improving hypercapnia improves overall respiration (4) Hypertension: Code(s): I10 - Essential (primary) hypertension Status: Acute Assessment and Plan: Takes atenolol and amlodipine at home. Switch to metoprolol 25 mg q6h (5) Hyperlipidemia: Code(s): E78.5 - Hyperlipidemia, unspecified Status: Acute Assessment and Plan: Takes simvastatin 20 mg daily. Continue. (6) History of DVT (deep vein thrombosis): Code(s): Z86.718 - Personal history of other venous thrombosis and embolism Status: Acute Assessment and Plan: Takes rivaroxaban at home. 12/17 patient says it is for AAA with thrombus (7) Alcohol related disorder: Code(s): F10.99 - Alcohol use, unspecified with unspecified alcohol-induced disorder Status: Acute Assessment and Plan: Monitor. No withdrawal noted (8) Abnormal liver enzymes: Code(s): R74.8 - Abnormal levels of other serum enzymes Status: Acute Assessment and Plan: Repeat LFTs pending (9) Bacteremia: Code(s): R78.81 - Bacteremia Status: Acute Assessment and Plan: with vegetation on valve with echocardiogram continue IV antibiotics will likely need treated for endocarditis cardiology consult for possible COURTNEY - plan for COURTNEY once more medically stable from respiratory standpoint repeat cultures cont cefepime, started 05/04/22 Plan DVT prophylaxis with Xarelto GI prophylaxis not indicated Code status full code Subjective Date/time seen: 05/10/22 08:29 Interval history: No overnight events noted. No chest pain. No nausea, vomiting or diarrhea. No fevers or chills. Shortness of breath with exertion. States he feels a little better today than yesterday, less lethargic and weak. Review of Systems Review of Systems: All systems reviewed & are unremarkable except as noted in HPI and below Exam Narrative: General: No acute distress, alert and oriented per baseline HEENT: Atraumatic, normocephalic, mucous membranes moist CV: Irregularly irregular, S1, S2 Lungs: Coarse breath sounds throughout, diminished throughout, tight wheezes noted at bases Abdomen: Soft, nontender, nondistended Extr
--- NOTE | 2022-05-10 08:39 | PCNWS ---
Weekly nutritional screen. Patient is tolerating current diet with adequate intake. No weight loss reported. No nutritional needs at this time.
[2022-05-10 09:16] LABS: Basophils Absolute Auto 0.1 K/mm3 (0.0-0.1); Basophils Percent Auto 0.4 % (0.2-1.2); Eosinophils Absolute Auto 0.2 K/mm3 (0-0.3); Eosinophils Percent Auto 1.2 % (0-4.4); Hematocrit 45.2 % (42.0-52.0); Hemoglobin 15.1 g/dL (14.0-18.0); Immature Granulocyte Absolute 0.66 K/mm3 (0.00-0.031); Immature Granulocyte Percent A 3.3 % (0-0.5); Lymphocytes Absolute Auto 1.22 K/mm3 (0.9-3.2); Lymphocytes Percent Auto 6.1 % (18.3-44.2); Mean Corpuscular HGB Conc 33.4 g/dl (32-36); Mean Corpuscular Hemoglobin 32.1 pg (26-34); Mean Corpuscular Volume 96.2 fl (80-100); Mean Platelet Volume 9.9 fl (7.4-10.4); Monocytes Percent Auto 5.1 % (2.6-8.5); Neutrophils Absolute Auto 16.7 K/mm3 (1.3-6.7); Neutrophils Percent Auto 83.9 % (45.5-73.1); Platelet Count Result 376 k/mm3 (150-375); Red Cell Distribution Width 14.2 % (11.5-14.5); White Blood Count 19.9 K/mm3 (4.5-10.0)
[2022-05-10 09:27] LABS: Alanine Aminotransferase 133 U/L (6-50); Albumin Level 2.9 g/dL (3.5-5.1); Alkaline Phosphatase 136 U/L (38-126); Aspartate Amino Transferase 36 U/L (17-59); Bilirubin,Total 1.3 mg/dL (0.2-1.3); Blood Urea Nitrogen 29 mg/dL (9-20); Calcium 8.4 mg/dL (8.4-10.2); Carbon Dioxide > 40 mmol/L (22-30); Chloride 95 mmol/L (98-107); Estimated CRCL calculation 83 ml/min; Estimated Glomerular Filt Rate > 60; Glucose 130 mg/dL (65-110); Sodium 135 mmol/L (137-145)
[2022-05-10] MEDS: predniSONE 20 MG TABLET PO (09:37)
[2022-05-10] MEDS: FOLIC ACID 1 MG TABLET PO (09:37)
[2022-05-10] MEDS: MULTIVITAMINS THERAPEUTIC TAB (*BKC) 1 TABLET PO (09:38)
[2022-05-10] MEDS: SIMVASTATIN 20 MG TABLET PO (09:38)
--- NOTE | 2022-05-10 09:55 | PM.CNPUL ---
Assessment and Plan Assessment and plan (1) Acute exacerbation of chronic obstructive airways disease: Code(s): J44.1 - Chronic obstructive pulmonary disease with (acute) exacerbation Status: Acute Assessment and Plan: 71-year-old man with very severe COPD, FEV1 approximately 30% predicted, chronically on supplemental oxygen and maintenance bronchodilators presented with shortness of breath. He has been diagnosed with community-acquired pneumonia related to strep pneumoniae. He has received various antibiotics including ceftriaxone, Zithromax vancomycin and most recently cefepime. Susceptibility testing showed that strep pneumonia was not resistant to any of these antibiotics he has received. His respiratory status appears to be stable, without need to be on noninvasive ventilatory support for hypoxemia. There was a question of infective endocarditis as echocardiogram showed possible mass in 1 of the aortic valve leaflets. The patient was evaluated by Cardiology. Apparently he has no other complications of infective endocarditis such as meningitis. positive blood cultures may occur in up to 25% in patients with a community-acquired pneumonia related to strep pneumoniae. The patient is being considered for further workup for infective endocarditis by Cardiology Services. As far as treatment of strep pneumonia the patient has been hemodynamically stable, with no fever. Leukocyte count is elevated which could be related to recent steroid treatment. Plan: continue with current antibiotic regimen for now, monitor ABGs, inflammatory indices, continue with nebulized short-acting bronchodilators. (2) CAP (community acquired pneumonia): Code(s): J18.9 - Pneumonia, unspecified organism Status: Acute (3) Emphysema of lung: Code(s): J43.9 - Emphysema, unspecified Status: Acute (4) COPD, very severe: Code(s): J44.9 - Chronic obstructive pulmonary disease, unspecified Status: Acute (5) Former smoker: Code(s): Z87.891 - Personal history of nicotine dependence Status: Acute (6) Atrial fibrillation with RVR: Code(s): I48.91 - Unspecified atrial fibrillation Status: Acute History of Present Illness History of Present Illness Consult date: 05/10/22 Chief complaint: RESPIRATORY FAILURE,PNEUMONIA,HYPOXIA Narrative: This 71-year-old man had is seen in consultation for COPD respiratory failure. The patient has severe COPD with FEV1 in the range with 30% predicted, FEV1 approximately 0.9 L. He has been on chronic home oxygen at 2 liters/minute as well as maintenance bronchodilators and short-acting bronchodilators for p.r.n. use. He was in his usual state of health until approximately 7 days ago when he presented with a few day history of shortness of breath and cough. In the emergency room he was hypoxemic and was started on BiPAP support. CT PA showed extensive right lung infiltrate suggestive of community-acquired pneumonia. Blood cultures grew strep pneumonia. The patient also received treatment for atrial fibrillation and was evaluated by Cardiology for questionable infective endocarditis as echocardiogram showed a mass on 1 of the aortic valve leaflets. Workup for infective endocarditis is underway. Since admission the patient was initially treated with ceftriaxone and Zithromax, also started on vancomycin and last antibiotic is cefepime q.8 hours. Patient has been treated for COPD exacerbation with steroids and short-acting bronchodilators. Oral prednisone was continued yesterday. He has been afebrile since admission. His respiratory status has significantly improved. he had no hypercapnia on initial presentation. He has not been using BiPAP support for hypoxemia. He remains on supplemental oxygen. Review of Systems Review of Systems: Patient reports no significant weight changes. He had no orthopnea. He has had history of acid reflux disease and has been on a P
--- NOTE | 2022-05-10 10:31 | PM.PNCARD ---
Progress Note: A&P Assessment and Plan (1) Bacteremia: Code(s): R78.81 - Bacteremia Status: Acute Assessment and Plan: Patient with strep bacteremia who has an abnormal appearing aortic valve by surface ECHO. Of concern for endocarditis Counseled patient about endocarditis, which would prolong the need for IV antibiotics and put him at risk for valve damage if not treated appropriately Remains on high flow O2 with FiO2 now increased to 80%. Will plan on COURTNEY when the patient's respiratory status has improved, since he will need conscious sedation for the procedure. (2) Atrial fibrillation with RVR: Code(s): I48.91 - Unspecified atrial fibrillation Status: Acute Assessment and Plan: New onset AFib RVR Reasonably rate controlled on diltiazem and metoprolol. Continue diltiazem and metoprolol. 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, would want to make sure that he does not have left atrial appendage thrombus and would consider cardioversion depending on if the aortic valve mass is present or not by COURTNEY Already taking Xarelto for his AAA thrombus and history of DVT (3) CAP (community acquired pneumonia): Code(s): J18.9 - Pneumonia, unspecified organism Status: Acute Assessment and Plan: Community-acquired pneumonia, on high-flow oxygen and antibiotics, improving (4) Acute exacerbation of chronic obstructive airways disease: Code(s): J44.1 - Chronic obstructive pulmonary disease with (acute) exacerbation Status: Acute Assessment and Plan: History of COPD on home O2 for activity Subjective Date/time seen: 05/10/22 10:31 Interval history: 71-year-old admitted and cardiology consultation requested because of atrial fibrillation and aortic valve mass Date of service 05/10/2022: Short of breath with minor activity. No chest pain. Review of Systems Constitutional: Constitutional: Denies fever(s) Eyes: Eyes: Reports no additional eye complaints ENT: Denies epistaxis Cardiovascular: Cardiovascular: Denies chest pain, Denies pedal edema, Denies lightheadedness, Denies dyspnea and Reports dyspnea on exertion Respiratory: Respiratory: Reports chest congestion, Reports cough, Reports dyspnea and Reports dyspnea on exertion Gastrointestinal: Gastrointestinal: Denies abdominal pain and Denies hematochezia Genitourinary: Genitourinary: Denies hematuria and Denies dysuria Musculoskeletal: Musculoskeletal: Reports no additional musculoskeletal complaints Integumentary/Breasts: Skin/Breast: Reports system reviewed and no additional complaints, except as docu Neurologic: Reports system reviewed and no additional complaints, except as documented, Denies behavioral changes and Denies confusion Psychiatric: Psychiatric: Denies behavioral changes and Denies confusion Exam Const: General: cooperative and comfortable; No confusion Orientation/consciousness: oriented to person, patient oriented x3 and No confusion Other: Older male sitting up in the chair. HENMT: Mouth: Yes moist mucous membranes Eyes: Sclera: sclerae normal Neck: Neck: supple and no JVD Carotids: bruit (Oxygen flow is too noisy to hear anything) Resp: Effort & Inspection: normal respiratory effort Auscultation: crackles and diminished lung sounds Cardio: Rate: regular rate and tachycardic Rhythm: abnormal rhythm irregularly irregular Heart sounds: no murmurs GI: Inspection: normal to inspection Skin: General skin exam: normal color Other: Some areas of ecchymosis due to phlebotomy but no splinter hemorrhages, Janeway lesions or Osler's nodes Neuro: General: oriented to person, patient oriented x3 and No confusion Extrem: Right lower extremity: no edema Left lower extremity: no edema Psych: Appearance: grossly normal Mental Status: mental status grossly normal Objective Data Vital
[2022-05-10 11:34] LABS: Alveolar/Arterial O2 Gradient 428.8 mmHg; Base Excess ABG 5.8 mEq/l (+/-2.0); Fractional Inspired Oxygen 75 %; HCO3 ABG 30.9 mEq/l (22.0-26.0); Oxygen Content ABG 19.4 %vol (16.0-22.0); Oxygen Saturation ABG 90.5 % (95.0-100.0); Oxyhemoglobin 88.3 % THb (90.0-100.0); PCO2 ABG 46.2 mmHg (35.0-45.0); PO2 ABG 56.9 mmHg (80.0-100.0); PO2 FiO2 Ratio Arterial Blood 0.76 %; Total Hemoglobin 15.7 g/dL (12.0-18.0); pH ABG 7.443 (7.350-7.450)
[2022-05-10 11:42] LABS: Device HIGH FLOW THERAPY; Modified Allen's Test Pass; Site Drawn LEFT RADIAL
[2022-05-10] MEDS: RIVAROXABAN 20 MG TABLET PO (17:08)
--- NOTE | 2022-05-10 18:47 | ECG_ITS ---
Measurements Intervals [facility] Rate: 85 P: 57 VT: 152 QRS: 28 QRSD: 93 T: 48 QT: 360 QTc: 429 Interpretive Statements SINUS RHYTHM BASELINE ARTIFACT LOW-VOLTAGE QRS IN LIMB LEADS BORDERLINE ECG COMPARED TO ECG 05/05/2022 07:55:59 SINUS RHYTHM NOW PRESENT Electronically Signed On 05-15-2022 17:32:41 [employer] by Clay Skinner M.D.
[2022-05-10] MEDS: TEMAZEPAM (*CRX) 15 MG CAPSULE PO (20:41)
[2022-05-11] VITALS (19 sets, daily range): BP systolic 95–112; BP diastolic 59–76; PULSE 70–84; RESP 14–23; TEMP 36.5–37.2; O2SAT 91–97
[2022-05-11] MEDS: dilTIAZem HCL 60 MG TABLET PO (05:27)
[2022-05-11] MEDS: METOPROLOL TARTRATE 25 MG TABLET PO ×2 (05:27→17:18)
[2022-05-11 06:09] LABS: Basophils Percent Auto 0.2 % (0.2-1.2); Eosinophils Absolute Auto 0.1 K/mm3 (0-0.3); Eosinophils Percent Auto 0.5 % (0-4.4); Hematocrit 40.7 % (42.0-52.0); Hemoglobin 13.3 g/dL (14.0-18.0); Immature Granulocyte Absolute 0.28 K/mm3 (0.00-0.031); Immature Granulocyte Percent A 2.3 % (0-0.5); Lymphocytes Absolute Auto 0.75 K/mm3 (0.9-3.2); Lymphocytes Percent Auto 6.2 % (18.3-44.2); Mean Corpuscular HGB Conc 32.7 g/dl (32-36); Mean Corpuscular Hemoglobin 31.5 pg (26-34); Mean Corpuscular Volume 96.4 fl (80-100); Monocytes Absolute Auto 0.8 K/mm3 (0.1-0.6); Monocytes Percent Auto 6.6 % (2.6-8.5); Neutrophils Absolute Auto 10.3 K/mm3 (1.3-6.7); Neutrophils Percent Auto 84.2 % (45.5-73.1); Platelet Count Result 302 k/mm3 (150-375); Red Blood Count 4.22 M/mm3 (4.6-6.20); Red Cell Distribution Width 14.1 % (11.5-14.5); White Blood Count 12.2 K/mm3 (4.5-10.0)
[2022-05-11 06:29] LABS: Alanine Aminotransferase 96 U/L (6-50); Albumin Level 2.5 g/dL (3.5-5.1); Alkaline Phosphatase 107 U/L (38-126); Anion Gap -1 mmol/L (8-16); Aspartate Amino Transferase 29 U/L (17-59); Bilirubin,Total 0.9 mg/dL (0.2-1.3); Blood Urea Nitrogen 27 mg/dL (9-20); Calcium 7.9 mg/dL (8.4-10.2); Carbon Dioxide 36 mmol/L (22-30); Chloride 98 mmol/L (98-107); Estimated CRCL calculation 109 ml/min; Estimated Glomerular Filt Rate > 60; Glucose 105 mg/dL (65-110); Sodium 133 mmol/L (137-145)
[2022-05-11] MEDS: SIMVASTATIN 20 MG TABLET PO (08:11)
[2022-05-11] MEDS: FOLIC ACID 1 MG TABLET PO (08:11)
[2022-05-11] MEDS: MULTIVITAMINS THERAPEUTIC TAB (*BKC) 1 TABLET PO (08:12)
--- NOTE | 2022-05-11 08:22 | PM.PNCARD ---
Progress Note: A&P Assessment and Plan (1) Bacteremia: Code(s): R78.81 - Bacteremia Status: Acute Plan 71-year-old man with strep bacteremia. Possibility of aortic valve endocarditis was raised by 1 of my partners who interpreted his echocardiogram. According to the records plans are in place for eventual COURTNEY when his respiratory status was improved. Patient's understanding is the procedure will likely occur next week sometime. She given his significant underlying COPD this will have to be coordinated with anesthesia. No other recommendations this weekend will anticipate arranging this next week sometime Emeka Alcala MD [facility] Subjective Date/time seen: Date of service: 05/11/22 08:22 Interval history: Follow-up visit in this 71-year-old man with: Streptococcal bacteremia and concern regarding the possibility of aortic valve endocarditis. Patient says he feels well this morning and does not have any complaints. He had a good night sleep with his CPAP device in place Exam Const: General: comfortable and no acute distress Other: Elderly white male with high-flow nasal cannula oxygen in place HENMT: Mouth: Yes moist mucous membranes Eyes: Sclera: sclerae normal Neck: Neck: supple and no JVD Resp: Effort & Inspection: normal respiratory effort Other: Breath sounds diminished in both lung martinez no rales no wheezing Cardio: Rate: regular rate Rhythm: regular rhythm Other: Soft systolic murmur at the left sternal border without radiation GI: GI Palp: Yes Soft to palpation Auscultation: normal bowel sounds Skin: General skin exam: normal color Neuro: Other: Cognitively intact alert and oriented Objective Data Vital Signs Vital Signs: Vital Signs - 24 hr 05/10/22 12:07 05/10/22 12:00 05/10/22 12:00 Temperature 36.7 C Pulse Rate 128 H 116 H Respiratory Rate 20 Blood Pressure 104/66 Pulse Oximetry 91 91 Oxygen Delivery High Flow Therapy with Na Oxygen Flow Rate 45 Fraction of Inspired Oxygen 75 05/10/22 14:03 05/10/22 15:51 05/10/22 16:00 Temperature 37.0 C Pulse Rate 95 Respiratory Rate 18 Blood Pressure 117/69 Pulse Oximetry 92 93 93 Oxygen Delivery High Flow Therapy with Na High Flow Therapy with Na Oxygen Flow Rate 45 35 Fraction of Inspired Oxygen 70 05/10/22 17:06 05/10/22 10:00 05/10/22 12:00 Temperature Pulse Rate 100 117 H 122 H Respiratory Rate Blood Pressure Pulse Oximetry Oxygen Delivery Oxygen Flow Rate Fraction of Inspired Oxygen 05/10/22 14:00 05/10/22 16:00 05/10/22 18:00 Temperature Pulse Rate 93 96 95 Respiratory Rate Blood Pressure Pulse Oximetry Oxygen Delivery Oxygen Flow Rate Fraction of Inspired Oxygen 05/10/22 20:00 05/10/22 20:00 05/10/22 22:00 Temperature 36.7 C Pulse Rate 85 78 79 Respiratory Rate 20 Blood Pressure 108/67 Pulse Oximetry 95 Oxygen Delivery Oxygen Flow Rate Fraction of Inspired Oxygen 05/10/22 22:15 05/10/22 23:46 05/10/22 23:48 Temperature 36.0 C L Pulse Rate 72 79 79 Respiratory Rate 19 20 Blood Pressure 103/65 Pulse Oximetry 98 94 Oxygen Delivery BiPAP Oxygen Flow Rate Fraction of Inspired Oxygen 05/11/22 00:00 05/11/22 02:00 05/11/22 01:15 Temperature Pulse Rate 78 75 70 Respiratory Rate 22 H Blood Pressure Pulse Oximetry 95 Oxygen Delivery BiPAP Oxygen Flow Rate Fraction of Inspired Oxygen 05/11/22 04:00 05/11/22 04:00 05/11/22 05:27 Temperature 36.8 C Pulse Rate 79 72 80 Respiratory Rate 18 Blood Pressure 112/76 Pulse Oximetry 94 Oxygen Delivery Oxygen Flow Rate Fraction of Inspired Oxygen 05/11/22 06:00 05/11/22 07:58 Temperature 37.2 C Pulse Rate 84 77 Respiratory Rate 14 Blood Pressure 95/64 L Pulse Oximetry 97 Oxygen Delivery Oxygen Flow Rate Fraction of Inspired Oxygen Intake/Output Intake/Output:
--- NOTE | 2022-05-11 08:31 | PM.IMPN ---
Progress Note: A&P Assessment and Plan (1) CAP (community acquired pneumonia): Code(s): J18.9 - Pneumonia, unspecified organism Status: Acute Assessment and Plan: CTA chest with right lower, right middle and right upper lobe. Daughter mentions ETOH abuse to nurse, so with this presentation consider aspiration pneumonia. Will treat to cover for aspiration as well as high risk due to structural lung disease as emphysema noted on CTA. -Cefepime 2g q8h, started 05/04/22 -Cultures positive for strep pneum, repeat blood cx NGTD -Azithromycin has been completed -Continue Airvo for respiratory support, weanin/22: Down to 45L and 75% FiO2 from 55L and 80% yesterday, cont to wean as tolerated -Concern for endocarditis, COURTNEY planned later by cardio when resp status stabilized--may not need 05/10: Consult to pulm placed today, confirm no further interventions needed for resp failure, would expect more resolution/rapid improvement by now 05/11: Weaned to 35L hi kartik yesterday, tolerated BIPAP overnight, decreased CO2 noted on BMP this morning (2) Atrial fibrillation with RVR: Code(s): I48.91 - Unspecified atrial fibrillation Status: Acute Assessment and Plan: 05/09: Cont home Cardizem 60 mg q6h, metoprolol 25 mg q6h, and Xarelto, appreciate cardiology consultation 05/10: in afib on tele today 05/11: cont afib, with worsening hypotension, will decrease dose of cardizem to 30 mg Q6h, metoprolol 25 mg Q12h, monitor (3) Acute exacerbation of chronic obstructive airways disease: Code(s): J44.1 - Chronic obstructive pulmonary disease with (acute) exacerbation Status: Acute Assessment and Plan: 05/09: Weaning steroids, on prednisone 20 mg daily, will d/c today, cont nebs with albuterol/ipratropium 05/10: Hypercapnia noted, would recommend BiPAP overnight, will give Restoril and Ativan as needed so patient is able to tolerate BiPAP to see if improving hypercapnia improves overall respiration 05/11: Tolerated BIPAP overnight, weaned to 35L hi kartik, appreciate pulm c/s, hypercapnia improved on BMP this am (4) Hypertension: Code(s): I10 - Essential (primary) hypertension Status: Acute Assessment and Plan: Atenolol and amlodipine have been discontinued, patient was started on metoprolol 05/11: Metoprolol decreased from 25 mg Q6h to Q12h, cardizem decreased from 60 mg Q6h to 30 mg Q6h (5) Hyperlipidemia: Code(s): E78.5 - Hyperlipidemia, unspecified Status: Acute Assessment and Plan: Takes simvastatin 20 mg daily. Continue. (6) History of DVT (deep vein thrombosis): Code(s): Z86.718 - Personal history of other venous thrombosis and embolism Status: Acute Assessment and Plan: 05/09: Cont xarelto for h/o AAA with thrombus 05/11: Check AAA US to evaluate (7) Alcohol related disorder: Code(s): F10.99 - Alcohol use, unspecified with unspecified alcohol-induced disorder Status: Acute Assessment and Plan: Monitor. No withdrawal noted (8) Abnormal liver enzymes: Code(s): R74.8 - Abnormal levels of other serum enzymes Status: Acute Assessment and Plan: LFTs improving (9) Bacteremia: Code(s): R78.81 - Bacteremia Status: Acute Assessment and Plan: 05/03: 1/2 bld cx positive for s. pneumo 05/08: Repeat blood and sputum cultures ordered, cont cefepime, started 05/04/2205/09: Possible vegetation on valve with echocardiogram, continue IV antibiotics, will likely need treated for endocarditis. Cardiology consult for possible COURTNEY - plan for COURTNEY once more medically stable from respiratory standpoint 05/11: Repeat blood cx NGTD, cont to monitor, sputum cx pos for yeast, monitor for now, cont cefepime, suspect low risk of bacteremia at this point due to 1/4 bld cx positive for s. pneumo and patient's resp symptoms improving--may not need COURTNEY, today is day 7 of abx, due to
[2022-05-11] MEDS: ACETAMINOPHEN 325 MG TABLET 650 MG PO (09:50)
--- NOTE | 2022-05-11 09:52 | PM.PNPUL ---
Progress Note: A&P Assessment and Plan (1) Acute exacerbation of chronic obstructive airways disease: Code(s): J44.1 - Chronic obstructive pulmonary disease with (acute) exacerbation Status: Acute (2) CAP (community acquired pneumonia): Code(s): J18.9 - Pneumonia, unspecified organism Status: Acute Assessment and Plan: This 71-year-old man with very severe COPD chronic hypoxemic respiratory failure on supplemental oxygen was hospitalized with acute on chronic respiratory failure related to community-acquired pneumonia. Chest imaging studies have shown extensive infiltrate in right lower lobe due to streptococcal pneumonia. clinical status has improved with antibiotics. He is still requiring high FiO2 and the last chest x-ray taken several days ago showed extensive infiltrate. Patient is being considered for COURTNEY as echocardiogram raise question of vegetation on aortic valve and patient had positive blood cultures for strep pneumonia. Patient has no other symptoms to suggest infective endocarditis. WBC trending down while patient off antibiotics. Plan: Continue with current regimen antibiotic nebulized short-acting bronchodilators. Repeat chest x-ray in a.m.. Continue with BiPAP support at night. (3) Emphysema of lung: Code(s): J43.9 - Emphysema, unspecified Status: Acute (4) COPD, very severe: Code(s): J44.9 - Chronic obstructive pulmonary disease, unspecified Status: Acute (5) Former smoker: Code(s): Z87.891 - Personal history of nicotine dependence Status: Acute (6) Hypoxemia: Code(s): R09.02 - Hypoxemia Status: Acute (7) Atrial fibrillation with RVR: Code(s): I48.91 - Unspecified atrial fibrillation Status: Acute Subjective Date/time seen: 05/11/22 09:52 Interval history: patient has no new respiratory symptoms. Used BiPAP support last night. Remaining on high FiO2 currently high-flow nasal cannula. Cough and sputum production significantly less than before. No wheezing. Shortness of breath about unchanged over the last couple of days. Still on antibiotics. Has been off steroids for COPD exacerbation. Review of Systems Review of Systems: Patient reports no significant weight changes. He had no orthopnea. He has had history of acid reflux disease and has been on a PPI. He has no urinary complaints. He has no lower extremity edema. He has previous history of DVT and had been on direct anti coagulant. Objective Data Vital Signs Vital Signs: Vital Signs - 24 hr 05/10/22 12:07 05/10/22 12:00 05/10/22 12:00 Temperature 36.7 C Pulse Rate 128 H 116 H Respiratory Rate 20 Blood Pressure 104/66 Pulse Oximetry 91 91 Oxygen Delivery High Flow Therapy with Na Oxygen Flow Rate 45 Fraction of Inspired Oxygen 75 05/10/22 14:03 05/10/22 15:51 05/10/22 16:00 Temperature 37.0 C Pulse Rate 95 Respiratory Rate 18 Blood Pressure 117/69 Pulse Oximetry 92 93 93 Oxygen Delivery High Flow Therapy with Na High Flow Therapy with Na Oxygen Flow Rate 45 35 Fraction of Inspired Oxygen 70 05/10/22 17:06 05/10/22 10:00 05/10/22 12:00 Temperature Pulse Rate 100 117 H 122 H Respiratory Rate Blood Pressure Pulse Oximetry Oxygen Delivery Oxygen Flow Rate Fraction of Inspired Oxygen 05/10/22 14:00 05/10/22 16:00 05/10/22 18:00 Temperature Pulse Rate 93 96 95 Respiratory Rate Blood Pressure Pulse Oximetry Oxygen Delivery Oxygen Flow Rate Fraction of Inspired Oxygen 05/10/22 20:00 05/10/22 20:00 05/10/22 22:00 Temperature 36.7 C Pulse Rate 85 78 79 Respiratory Rate 20 Blood Pressure 108/67 Pulse Oximetry 95 Oxygen Delivery Oxygen Flow Rate Fraction of Inspired Oxygen 05/10/22 22:15 05/10/22 23:46 05/10/22 23:48 Temperature 36.0 C L Pulse Rate 72 79 79 Respiratory Rate 19 20 Blood Pressure 103/65
[2022-05-11] MEDS: dilTIAZem HCL 30 MG TABLET PO ×3 (11:55→23:42)
[2022-05-11] MEDS: RIVAROXABAN 20 MG TABLET PO (17:18)
[2022-05-11] MEDS: TEMAZEPAM (*CRX) 15 MG CAPSULE 30 MG PO (21:26)
[2022-05-12] VITALS (20 sets, daily range): BP systolic 93–116; BP diastolic 60–75; PULSE 70–106; RESP 20–24; TEMP 36.6–36.8; O2SAT 88–97
[2022-05-12] MEDS: METOPROLOL TARTRATE 25 MG TABLET PO ×2 (05:40→17:18)
[2022-05-12] MEDS: dilTIAZem HCL 30 MG TABLET PO ×3 (05:40→17:17)
[2022-05-12 05:42] LABS: Basophils Absolute Auto 0.1 K/mm3 (0.0-0.1); Basophils Percent Auto 0.3 % (0.2-1.2); Eosinophils Absolute Auto 0.2 K/mm3 (0-0.3); Eosinophils Percent Auto 1.3 % (0-4.4); Hematocrit 43.9 % (42.0-52.0); Hemoglobin 14.7 g/dL (14.0-18.0); Immature Granulocyte Absolute 0.33 K/mm3 (0.00-0.031); Immature Granulocyte Percent A 2.2 % (0-0.5); Lymphocytes Absolute Auto 1.04 K/mm3 (0.9-3.2); Mean Corpuscular HGB Conc 33.5 g/dl (32-36); Mean Corpuscular Hemoglobin 31.7 pg (26-34); Mean Corpuscular Volume 94.8 fl (80-100); Mean Platelet Volume 10.1 fl (7.4-10.4); Monocytes Absolute Auto 1.5 K/mm3 (0.1-0.6); Monocytes Percent Auto 10.2 % (2.6-8.5); Neutrophils Absolute Auto 11.7 K/mm3 (1.3-6.7); Platelet Count Result 330 k/mm3 (150-375); Red Blood Count 4.63 M/mm3 (4.6-6.20); Red Cell Distribution Width 13.8 % (11.5-14.5); White Blood Count 14.8 K/mm3 (4.5-10.0)
[2022-05-12 05:58] LABS: Alanine Aminotransferase 74 U/L (6-50); Albumin Level 2.7 g/dL (3.5-5.1); Alkaline Phosphatase 120 U/L (38-126); Anion Gap 1 mmol/L (8-16); Aspartate Amino Transferase 28 U/L (17-59); Bilirubin,Total 0.9 mg/dL (0.2-1.3); Blood Urea Nitrogen 21 mg/dL (9-20); Carbon Dioxide 38 mmol/L (22-30); Chloride 97 mmol/L (98-107); Estimated CRCL calculation 109 ml/min; Estimated Glomerular Filt Rate > 60; Glucose 83 mg/dL (65-110); Potassium 3.5 mmol/L (3.4-5.0); Sodium 136 mmol/L (137-145)
--- NOTE | 2022-05-12 08:06 | PM.IMPN ---
Progress Note: A&P Assessment and Plan (1) CAP (community acquired pneumonia): Code(s): J18.9 - Pneumonia, unspecified organism Status: Acute Assessment and Plan: CTA chest with right lower, right middle and right upper lobe. Daughter mentions ETOH abuse to nurse, so with this presentation consider aspiration pneumonia. -Cefepime 2g q8h, started 05/04/22 -Cultures positive for strep pneum, repeat blood cx NGTD -Azithromycin 5 day course has been completed -05/12: 35L/50% FiO2, cont to wean aggressively (2) Atrial fibrillation with RVR: Code(s): I48.91 - Unspecified atrial fibrillation Status: Acute Assessment and Plan: 05/09: Cont home Cardizem 60 mg q6h, metoprolol 25 mg q6h, and Xarelto, appreciate cardiology consultation 05/11: Cont afib, with worsening hypotension, will decrease dose of cardizem to 30 mg Q6h, metoprolol 25 mg Q12h, monitor 05/12: Stable BP, rate controlled, cont decreased doses for now (3) Acute exacerbation of chronic obstructive airways disease: Code(s): J44.1 - Chronic obstructive pulmonary disease with (acute) exacerbation Status: Acute Assessment and Plan: 05/09: Weaning steroids, on prednisone 20 mg daily, will d/c today, cont nebs with albuterol/ipratropium 05/10: Hypercapnia noted, would recommend BiPAP overnight, will give Restoril and Ativan as needed so patient is able to tolerate BiPAP to see if improving hypercapnia improves overall respiration 05/11: Tolerated BIPAP overnight, weaned to 35L hi kartik, appreciate pulm c/s, hypercapnia improved on BMP this am 05/12: Unable to tolerate BiPAP, will discuss options with pulmonary (4) Hypertension: Code(s): I10 - Essential (primary) hypertension Status: Acute Assessment and Plan: Atenolol and amlodipine have been discontinued, patient was started on metoprolol 05/11: Metoprolol decreased from 25 mg Q6h to Q12h, cardizem decreased from 60 mg Q6h to 30 mg Q6h 05/12: BP stable on lowered doses (5) Hyperlipidemia: Code(s): E78.5 - Hyperlipidemia, unspecified Status: Acute Assessment and Plan: Takes simvastatin 20 mg daily. Continue. (6) History of DVT (deep vein thrombosis): Code(s): Z86.718 - Personal history of other venous thrombosis and embolism Status: Acute Assessment and Plan: 05/09: Cont xarelto for h/o AAA with thrombus 05/11: Check AAA US to evaluate 05/12: Dilated proximal abdominal aorta up to 3.7 cm, no thrombus noted on ultrasound (7) Alcohol related disorder: Code(s): F10.99 - Alcohol use, unspecified with unspecified alcohol-induced disorder Status: Acute Assessment and Plan: Monitor. No withdrawal noted (8) Abnormal liver enzymes: Code(s): R74.8 - Abnormal levels of other serum enzymes Status: Acute Assessment and Plan: Continue to trend down (9) Bacteremia: Code(s): R78.81 - Bacteremia Status: Acute Assessment and Plan: 05/03: 1/2 bld cx positive for s. pneumo 05/08: Repeat blood and sputum cultures ordered, cont cefepime, started 05/04/2205/09: Possible vegetation on valve with echocardiogram, continue IV antibiotics, will likely need treated for endocarditis. Cardiology consult for possible COURTNEY - plan for COURTNEY once more medically stable from respiratory standpoint 05/11: Repeat blood cx NGTD, cont to monitor, sputum cx pos for yeast, monitor for now, cont cefepime, suspect low risk of bacteremia at this point due to 1/4 bld cx positive for s. pneumo and patient's resp symptoms improving--may not need COURTNEY, today is day 7 of abx, due to significant severity of pna, will cont abx for now, 10-14 day course, defer to pulm for recs 05/12: WBC increased a bit today, unsure of etiology, this does bring up concerns for continued endocarditis, repeat blood cultures from the did come back showing Staphylococcus epidermis, multi-drug resistant,
[2022-05-12] MEDS: SIMVASTATIN 20 MG TABLET PO (08:46)
[2022-05-12] MEDS: FOLIC ACID 1 MG TABLET PO (08:46)
[2022-05-12] MEDS: MULTIVITAMINS THERAPEUTIC TAB (*BKC) 1 TABLET PO (08:47)
--- NOTE | 2022-05-12 12:11 | PM.PNCARD ---
Progress Note: A&P Assessment and Plan (1) Aortic valve disorders: Code(s): I35.9 - Nonrheumatic aortic valve disorder, unspecified Status: Acute Assessment and Plan: Suspicion for aortic valve endocarditis. COURTNEY advised, however, patient must be further stabilized from a respiratory perspective and will need to be performed with the assistance of Anesthesiology. Saturday patient continues to stabilize her respiratory respective will attempt to schedule Saturday with Anesthesiology. Keep NPO after midnight Saturday evening. Continue Xarelto 20 mg at bedtime. Monitor for bleeding. Follow H&H. (2) Atrial fibrillation: Code(s): I48.91 - Unspecified atrial fibrillation Status: Acute Assessment and Plan: Heart rate reasonably controlled. Continue metoprolol tartrate 25 mg twice daily, diltiazem 30 mg p.o. q.6 hours. If remains stable today consider transition to longer-acting diltiazem as tolerated tomorrow BP permitting. (3) Bacteremia: Code(s): R78.81 - Bacteremia Status: Acute Assessment and Plan: Strep pneumonia. IV antibiotics per primary service. (4) COPD, very severe: Code(s): J44.9 - Chronic obstructive pulmonary disease, unspecified Status: Acute Assessment and Plan: Management per pulmonology and primary service. (5) CAP (community acquired pneumonia): Code(s): J18.9 - Pneumonia, unspecified organism Status: Acute Assessment and Plan: IV antibiotics, supportive care. (6) Thoracic aortic aneurysm without rupture: Code(s): I71.20 - Thoracic aortic aneurysm, without rupture, unspecified Status: Acute Assessment and Plan: Stable, no acute issues. Subjective Date/time seen: Date of service: 05/12/22 12:11 Interval history: Follow-up visit in this 71-year-old man with: Streptococcal bacteremia and concern regarding the possibility of aortic valve endocarditis. Patient states he feels okay, tired. Breathing stable but short of breath with movement. Would not wear BiPAP last night, wearing Airvo. No chest pain or palpitations. Review of Systems Constitutional: Constitutional: Denies fever(s) Eyes: Eyes: Reports no additional eye complaints ENT: Denies epistaxis Cardiovascular: Cardiovascular: Denies chest pain, Denies pedal edema, Denies lightheadedness, Reports dyspnea and Reports dyspnea on exertion Respiratory: Respiratory: Reports chest congestion, Reports cough, Reports dyspnea and Reports dyspnea on exertion Gastrointestinal: Gastrointestinal: Denies abdominal pain and Denies hematochezia Genitourinary: Genitourinary: Denies hematuria and Denies dysuria Musculoskeletal: Musculoskeletal: Reports no additional musculoskeletal complaints Integumentary/Breasts: Skin/Breast: Reports system reviewed and no additional complaints, except as docu Neurologic: Reports system reviewed and no additional complaints, except as documented, Denies behavioral changes and Denies confusion Psychiatric: Psychiatric: Denies behavioral changes and Denies confusion Exam Const: General: cooperative, comfortable and no acute distress; No confusion Orientation/consciousness: oriented to person, patient oriented x3 and No confusion Other: Elderly white male with high-flow nasal cannula oxygen in place HENMT: Mouth: Yes moist mucous membranes Eyes: Sclera: sclerae normal EOM: EOMs intact bilaterally Neck: Neck: supple and no JVD Thyroid: thyroid normal Resp: Effort & Inspection: normal respiratory effort Auscultation: crackles and diminished lung sounds Other: Breath sounds diminished in both lung martinez no rales no wheezing Cardio: Rate: regular rate and tachycardic Rhythm: regular rhythm and abnormal rhythm irregularly irregular Heart sounds: no murmurs Other: Soft systolic murmur at the left sternal border without radiation GI: Inspection: normal to inspection Auscultation: normal bowel sound
--- NOTE | 2022-05-12 12:49 | PM.PNPUL ---
Progress Note: A&P Assessment and Plan (1) Acute exacerbation of chronic obstructive airways disease: Code(s): J44.1 - Chronic obstructive pulmonary disease with (acute) exacerbation Status: Acute (2) CAP (community acquired pneumonia): Code(s): J18.9 - Pneumonia, unspecified organism Status: Acute Assessment and Plan: This 71-year-old man with very severe COPD chronic hypoxemic respiratory failure on supplemental oxygen was hospitalized with acute on chronic respiratory failure related to community-acquired pneumonia. Chest imaging studies have shown extensive infiltrate in right lower lobe due to streptococcal pneumonia. clinical status has improved with antibiotics. He is still requiring high FiO2 and the last chest x-ray taken several days ago showed extensive infiltrate. Patient is being considered for COURTNEY as echocardiogram raise question of vegetation on aortic valve and patient had positive blood cultures for strep pneumonia. Patient has no other symptoms to suggest infective endocarditis. patient was started on IV vancomycin presumably for positive blood culture of Staph epidermidis. This could be contamination from skin and not a true bacteremia. Patient had extensive right lung pneumonia which explains the persistent hypoxemia requiring high FiO2. Respiratory status has been stable over the last 2 days. Plan: Repeat chest x-ray to assess for possible right pleural effusion and partial resolution of extensive right lung infiltrate. You may consider discontinueing vancomycin if that was started for possible Staph epidermidis in 1 blood culture and re-culture the patient. encourage BiPAP support at night. (3) Emphysema of lung: Code(s): J43.9 - Emphysema, unspecified Status: Acute (4) COPD, very severe: Code(s): J44.9 - Chronic obstructive pulmonary disease, unspecified Status: Acute (5) Former smoker: Code(s): Z87.891 - Personal history of nicotine dependence Status: Acute (6) Hypoxemia: Code(s): R09.02 - Hypoxemia Status: Acute (7) Atrial fibrillation with RVR: Code(s): I48.91 - Unspecified atrial fibrillation Status: Acute Subjective Date/time seen: 05/12/22 12:49 patient has no new respiratory symptoms. Did not use BiPAP support last night.. Currently on high-flow nasal cannula. Shortness of breath about unchanged. Has no cough sputum production fever chills or wheezing. Started on vancomycin IV. He is also on cefepime IV. Review of Systems Review of Systems: All system review is negative except as noted in HPI and below Exam Narrative: GENERAL APPEARANCE: Well developed, well nourished, alert and cooperative, and appears to be in Mild respiratory distress while sitting up in bed, bracing arms and breathing supplemental oxygen via nasal cannula SKIN: Inspection of the skin reveals no rashes, ulcerations or petechiae. HEENT: Sclerae anicteric and conjunctivae pink and moist. Extraocular movements were intact and pupils were equal, round. NECK: Supple. There was no thyroid enlargement, and no tenderness, or masses were felt. CHEST: increased AP diameter and normal contour without any kyphoscoliosis. LUNGS: Auscultation of the lungs diffuse crackles right lung posteriorly, distant breath sounds left lung no wheezing CARDIAC: There was irregular rate and rhythm; 2/6 systolic ejection murmur at the apex ABDOMEN: Soft and nontender with normal bowel sounds. There was no organomegaly. LYMPH NODES: No lymphadenopathy was appreciated in the neck. EXTREMITIES: No cyanosis, clubbing or edema. NEUROLOGIC: Alert and oriented x 3. Normal affect. Objective Data Vital Signs Vital Signs: Vital Signs - 24 hr 05/11/22 14:00 05/11/22 16:00 05/11/22 16:00 Temperature Pulse Rate 81 78 80 Respiratory Rate 14 Blood Pressure Pulse Oximetry 91 Oxygen Delivery High Flow Therapy with Na Oxygen Flow Rate
[2022-05-12] MEDS: RIVAROXABAN 20 MG TABLET PO (17:20)
[2022-05-12] MEDS: guaiFENesin 600 MG/DEXTROMETHORPHAN 30 MG SR TAB 12 HR 1 TAB PO ×2 (18:07→22:08)
[2022-05-12] MEDS: ZOLPIDEM TARTRATE (*CRX) 5 MG TABLET 2.5 MG PO (22:15)
[2022-05-13] VITALS (18 sets, daily range): BP systolic 97–115; BP diastolic 42–65; PULSE 79–107; RESP 12–20; TEMP 36.2–36.6; O2SAT 70–98
[2022-05-13] MEDS: dilTIAZem HCL 30 MG TABLET PO ×4 (00:04→18:05)
[2022-05-13 05:44] LABS: Basophils Percent Auto 0.3 % (0.2-1.2); Eosinophils Absolute Auto 0.2 K/mm3 (0-0.3); Eosinophils Percent Auto 1.5 % (0-4.4); Hematocrit 38.1 % (42.0-52.0); Hemoglobin 12.5 g/dL (14.0-18.0); Immature Granulocyte Absolute 0.26 K/mm3 (0.00-0.031); Immature Granulocyte Percent A 2.5 % (0-0.5); Lymphocytes Absolute Auto 0.76 K/mm3 (0.9-3.2); Lymphocytes Percent Auto 7.4 % (18.3-44.2); Mean Corpuscular HGB Conc 32.8 g/dl (32-36); Mean Corpuscular Hemoglobin 31.5 pg (26-34); Mean Platelet Volume 9.8 fl (7.4-10.4); Monocytes Absolute Auto 1.3 K/mm3 (0.1-0.6); Neutrophils Absolute Auto 7.7 K/mm3 (1.3-6.7); Neutrophils Percent Auto 75.3 % (45.5-73.1); Platelet Count Result 301 k/mm3 (150-375); Red Blood Count 3.97 M/mm3 (4.6-6.20); Red Cell Distribution Width 13.6 % (11.5-14.5); White Blood Count 10.3 K/mm3 (4.5-10.0)
[2022-05-13 05:53] LABS: Alanine Aminotransferase 55 U/L (6-50); Albumin Level 2.4 g/dL (3.5-5.1); Alkaline Phosphatase 94 U/L (38-126); Anion Gap -1 mmol/L (8-16); Aspartate Amino Transferase 24 U/L (17-59); Bilirubin,Total 0.7 mg/dL (0.2-1.3); Blood Urea Nitrogen 16 mg/dL (9-20); Calcium 7.6 mg/dL (8.4-10.2); Carbon Dioxide 36 mmol/L (22-30); Chloride 96 mmol/L (98-107); Estimated CRCL calculation 109 ml/min; Estimated Glomerular Filt Rate > 60; Glucose 92 mg/dL (65-110); Potassium 3.4 mmol/L (3.4-5.0); Sodium 131 mmol/L (137-145)
[2022-05-13] MEDS: METOPROLOL TARTRATE 25 MG TABLET PO ×2 (05:58→18:04)
[2022-05-13] MEDS: FOLIC ACID 1 MG TABLET PO (12:02)
[2022-05-13] MEDS: MULTIVITAMINS THERAPEUTIC TAB (*BKC) 1 TABLET PO (12:02)
[2022-05-13] MEDS: guaiFENesin 600 MG/DEXTROMETHORPHAN 30 MG SR TAB 12 HR 1 TAB PO ×2 (12:02→21:49)
[2022-05-13] MEDS: SIMVASTATIN 20 MG TABLET PO (12:02)
--- NOTE | 2022-05-13 13:15 | PM.PNPUL ---
Progress Note: A&P Assessment and Plan (1) Acute exacerbation of chronic obstructive airways disease: Code(s): J44.1 - Chronic obstructive pulmonary disease with (acute) exacerbation Status: Acute (2) CAP (community acquired pneumonia): Code(s): J18.9 - Pneumonia, unspecified organism Status: Acute Assessment and Plan: This 71-year-old man with very severe COPD chronic hypoxemic respiratory failure on supplemental oxygen was hospitalized with acute on chronic respiratory failure related to community-acquired pneumonia. Chest imaging studies have shown extensive infiltrate in right lower lobe due to streptococcal pneumonia. clinical status has improved with antibiotics. X-ray done yesterday showed only partial clearing of right lung extensive infiltrate, which explains the still high FiO2 Patient is being considered for COURTNEY as echocardiogram raise question of vegetation on aortic valve and patient had positive blood cultures for strep pneumonia. Patient has no other symptoms to suggest infective endocarditis. patient was started on IV vancomycin presumably for positive blood culture of Staph epidermidis. This could be contamination from skin and not a true bacteremia. chest x-ray showed no evidence of clinically significant pleural effusion on right. Plan: continue with same treatment for COPD, monitor respiratory status out of bed to chair. (3) Emphysema of lung: Code(s): J43.9 - Emphysema, unspecified Status: Acute (4) COPD, very severe: Code(s): J44.9 - Chronic obstructive pulmonary disease, unspecified Status: Acute (5) Former smoker: Code(s): Z87.891 - Personal history of nicotine dependence Status: Acute (6) Hypoxemia: Code(s): R09.02 - Hypoxemia Status: Acute (7) Atrial fibrillation with RVR: Code(s): I48.91 - Unspecified atrial fibrillation Status: Acute Subjective Date/time seen: 05/13/22 13:15 patient has no new respiratory symptoms. Sitting in chair, still on high oxygen flow. Very little cough with no sputum production. Did not use BiPAP support last night. Review of Systems Review of Systems: All system review is negative except as noted in HPI and below Exam Narrative: GENERAL APPEARANCE: Well developed, well nourished, alert and cooperative, and appears to be in Mild respiratory distress while sitting up in bed, bracing arms and breathing supplemental oxygen via nasal cannula SKIN: Inspection of the skin reveals no rashes, ulcerations or petechiae. HEENT: Sclerae anicteric and conjunctivae pink and moist. Extraocular movements were intact and pupils were equal, round. NECK: Supple. There was no thyroid enlargement, and no tenderness, or masses were felt. CHEST: increased AP diameter and normal contour without any kyphoscoliosis. LUNGS: Auscultation of the lungs diffuse crackles right lung posteriorly, distant breath sounds left lung no wheezing CARDIAC: There was irregular rate and rhythm; 2/6 systolic ejection murmur at the apex ABDOMEN: Soft and nontender with normal bowel sounds. There was no organomegaly. LYMPH NODES: No lymphadenopathy was appreciated in the neck. EXTREMITIES: No cyanosis, clubbing or edema. NEUROLOGIC: Alert and oriented x 3. Normal affect. Objective Data Vital Signs Vital Signs: Vital Signs - 24 hr 05/12/22 14:00 05/12/22 16:24 05/12/22 16:00 Temperature 36.6 C Pulse Rate 92 93 90 Respiratory Rate 24 H Blood Pressure 93/62 L Pulse Oximetry 97 96 Oxygen Delivery High Flow Therapy with Na Oxygen Flow Rate 35 Fraction of Inspired Oxygen 58 05/12/22 16:00 05/12/22 17:18 05/12/22 17:35 Temperature Pulse Rate 86 98 98 Respiratory Rate Blood Pressure Pulse Oximetry 93 Oxygen Delivery High Flow Therapy with Na Oxygen Flow Rate 35 Fraction of Inspired Oxygen 50 05/12/22 18:00 05/12/22 20:00 05/12/22 23:01 Temperature 36.7
--- NOTE | 2022-05-13 13:27 | PM.IMPN ---
Progress Note: A&P Assessment and Plan (1) CAP (community acquired pneumonia): Code(s): J18.9 - Pneumonia, unspecified organism Status: Acute Assessment and Plan: CTA chest with right lower, right middle and right upper lobe. Daughter mentions ETOH abuse to nurse, so with this presentation consider aspiration pneumonia. -Cefepime 2g q8h, started 05/04/22 -Cultures positive for strep pneum, repeat blood cx NGTD -Azithromycin 5 day course has been completed -05/12: 35L/50% FiO2, cont to wean aggressively -05/13: On 35 L/65% FiO2, unsure why patient is worsening, suspect could be secondary to underlying endocarditis (2) Atrial fibrillation with RVR: Code(s): I48.91 - Unspecified atrial fibrillation Status: Acute Assessment and Plan: 05/09: Cont home Cardizem 60 mg q6h, metoprolol 25 mg q6h, and Xarelto, appreciate cardiology consultation 05/11: Cont afib, with worsening hypotension, will decrease dose of cardizem to 30 mg Q6h, metoprolol 25 mg Q12h, monitor 05/12: Stable BP, rate controlled, cont decreased doses for now 05/13: Stable (3) Acute exacerbation of chronic obstructive airways disease: Code(s): J44.1 - Chronic obstructive pulmonary disease with (acute) exacerbation Status: Acute Assessment and Plan: 05/09: Weaning steroids, on prednisone 20 mg daily, will d/c today, cont nebs with albuterol/ipratropium 05/10: Hypercapnia noted, would recommend BiPAP overnight, will give Restoril and Ativan as needed so patient is able to tolerate BiPAP to see if improving hypercapnia improves overall respiration 05/11: Tolerated BIPAP overnight, weaned to 35L hi kartik, appreciate pulm c/s, hypercapnia improved on BMP this am 05/12: Unable to tolerate BiPAP, will discuss options with pulmonary 05/13: Stable off BiPAP (4) Hypertension: Code(s): I10 - Essential (primary) hypertension Status: Acute Assessment and Plan: Atenolol and amlodipine have been discontinued, patient was started on metoprolol 05/11: Metoprolol decreased from 25 mg Q6h to Q12h, cardizem decreased from 60 mg Q6h to 30 mg Q6h 05/12: BP stable on lowered doses 05/13: Stable (5) Hyperlipidemia: Code(s): E78.5 - Hyperlipidemia, unspecified Status: Acute Assessment and Plan: Takes simvastatin 20 mg daily. Continue. (6) History of DVT (deep vein thrombosis): Code(s): Z86.718 - Personal history of other venous thrombosis and embolism Status: Acute Assessment and Plan: 05/09: Cont xarelto for h/o AAA with thrombus 05/11: Check AAA US to evaluate 05/12: Dilated proximal abdominal aorta up to 3.7 cm, no thrombus noted on ultrasound (7) Alcohol related disorder: Code(s): F10.99 - Alcohol use, unspecified with unspecified alcohol-induced disorder Status: Acute Assessment and Plan: Monitor. No withdrawal noted (8) Abnormal liver enzymes: Code(s): R74.8 - Abnormal levels of other serum enzymes Status: Acute Assessment and Plan: Continue to trend down (9) Bacteremia: Code(s): R78.81 - Bacteremia Status: Acute Assessment and Plan: 05/03: 1/2 bld cx positive for s. pneumo 05/08: Repeat blood and sputum cultures ordered, cont cefepime, started 05/04/2205/09: Possible vegetation on valve with echocardiogram, continue IV antibiotics, will likely need treated for endocarditis. Cardiology consult for possible COURTNEY - plan for COURTNEY once more medically stable from respiratory standpoint 05/11: Repeat blood cx NGTD, cont to monitor, sputum cx pos for yeast, monitor for now, cont cefepime, suspect low risk of bacteremia at this point due to 1/4 bld cx positive for s. pneumo and patient's resp symptoms improving--may not need COURTNEY, today is day 7 of abx, due to significant severity of pna, will cont abx for now, 10-14 day course, defer to pulm for recs 05/12: WBC increased a bit today, unsure of jaime
[2022-05-13] MEDS: RIVAROXABAN 20 MG TABLET PO (18:04)
[2022-05-13] MEDS: ZOLPIDEM TARTRATE (*CRX) 2.5 MG TABLET PO (21:50)
[2022-05-14] VITALS (19 sets, daily range): BP systolic 100–123; BP diastolic 55–72; PULSE 74–101; RESP 12–20; TEMP 35.8–37.3; O2SAT 88–99
--- NOTE | 2022-05-14 | ECHO_ITS ---
Patient Info Name: Donta Collins Age: 71 years : 1950 Gender: Male Ht: 70 in Wt: 212 lbs BSA: 2.20 m2 HR: 86 bpm BP: 123 / 68 mmHg Heart Rhythm: Sinus Rhythm Technical Quality: Poor Exam Date: 05/14/2022 11:10 AM Exam Location: [facility] Card Pulmonary Patient Status: Inpatient Admit Date: 05/03/2022 Staff Ordering Physician: Gracia Baum DO Roller Hand: Indira Hilliard RDCS Attending Provider: Glenn Heaton MD Referring Physician: Sarika WELLS; Exam Type: CA echo dop color flow w con Study Info Indications - sob Complete two-dimensional, color flow and Doppler transthoracic echocardiogram is performed with contrast to opacify the left ventricle and to improve the deliniation of the left ventricle endocardial borders. Contrast/Agitated Saline Contrast/Ag. Saline: Definity Amount: 3.00 ml Administered By: Indira Hilliard RDCS Existing IV Access: Yes IV Access Condition: patent with no signs of infiltration Summary 1. Technically difficult study with limited views. Definity contrast enhancement administered. 2. Left ventricular chamber dimension is normal. 3. Left ventricular systolic function is normal, estimated at 55-60%. 4. There is mildly increased left ventricular wall thickness. 5. The left ventricular diastolic function is grade I diastolic dysfunction. 6. The aortic valve is not well visualized. Left Ventricle Left ventricular chamber dimension is normal. Left ventricular systolic function is normal, estimated at 55-60%. There is mildly increased left ventricular wall thickness. The left ventricular diastolic function is grade I diastolic dysfunction. Technically difficult study with limited views. Definity contrast enhancement administered. Right Ventricle Right ventricular chamber dimension is normal. Right ventricular systolic function is normal. Left Atria Left atrial chamber dimension is not well visualized. Right Atria Right atrial chamber dimension is not well visualized. Aortic Valve The aortic valve is not well visualized. There is no aortic valve stenosis. There is no aortic valve regurgitation. Pulmonic Valve The pulmonic valve is not well visualized. Mitral Valve The mitral valve has thickened leaflets. There is no mitral valve regurgitation. The mitral valve annulus is mildly calcified. Tricuspid Valve The tricuspid valve leaflets are not well visualized. There is trace tricuspid valve regurgitation. Unable to assess PA systolic pressure due to poor spectral resolution of tricuspid regurgitant jet velocity. Pericardium/Pleural The pericardium appears normal. There is trivial pericardial effusion. Inferior Vena Cava Dilated inferior vena cava with no collapse upon inspiration consistent with significantly elevated right atrial pressure, 15 mmHg. Aorta The aortic root size at the sinus of Valsalva is normal. There is mild aortic atherosclerosis. Left Ventricular Outflow Tract Name Value Normal LVOT Doppler LVOT Peak Gradient 4 mmHg LVOT Mean Gradient 2 mmHg LVOT VTI 16.34 cm
[2022-05-14] MEDS: dilTIAZem HCL 30 MG TABLET PO ×4 (00:20→17:54)
[2022-05-14 01:01] LABS: Vancomycin Trough 15.7 ug/mL (10.0-20.0)
[2022-05-14 04:53] LABS: Basophils Percent Auto 0.3 % (0.2-1.2); Eosinophils Absolute Auto 0.2 K/mm3 (0-0.3); Eosinophils Percent Auto 1.6 % (0-4.4); Hematocrit 40.7 % (42.0-52.0); Hemoglobin 13.1 g/dL (14.0-18.0); Immature Granulocyte Absolute 0.26 K/mm3 (0.00-0.031); Immature Granulocyte Percent A 2.6 % (0-0.5); Lymphocytes Absolute Auto 0.89 K/mm3 (0.9-3.2); Lymphocytes Percent Auto 8.8 % (18.3-44.2); Mean Corpuscular HGB Conc 32.2 g/dl (32-36); Mean Corpuscular Hemoglobin 31.5 pg (26-34); Mean Corpuscular Volume 97.8 fl (80-100); Mean Platelet Volume 9.9 fl (7.4-10.4); Monocytes Absolute Auto 1.4 K/mm3 (0.1-0.6); Monocytes Percent Auto 13.6 % (2.6-8.5); Neutrophils Absolute Auto 7.4 K/mm3 (1.3-6.7); Neutrophils Percent Auto 73.1 % (45.5-73.1); Platelet Count Result 309 k/mm3 (150-375); Red Blood Count 4.16 M/mm3 (4.6-6.20); Red Cell Distribution Width 13.7 % (11.5-14.5); White Blood Count 10.1 K/mm3 (4.5-10.0)
[2022-05-14 05:04] LABS: Alanine Aminotransferase 53 U/L (6-50); Albumin Level 2.6 g/dL (3.5-5.1); Alkaline Phosphatase 97 U/L (38-126); Anion Gap -1 mmol/L (8-16); Aspartate Amino Transferase 30 U/L (17-59); Bilirubin,Total 0.5 mg/dL (0.2-1.3); Blood Urea Nitrogen 12 mg/dL (9-20); Calcium 7.7 mg/dL (8.4-10.2); Carbon Dioxide 38 mmol/L (22-30); Chloride 90 mmol/L (98-107); Estimated CRCL calculation 108 ml/min; Estimated Glomerular Filt Rate > 60; Glucose 139 mg/dL (65-110); Potassium 3.5 mmol/L (3.4-5.0); Sodium 127 mmol/L (137-145)
[2022-05-14] MEDS: METOPROLOL TARTRATE 25 MG TABLET PO ×2 (05:30→17:54)
[2022-05-14] MEDS: FOLIC ACID 1 MG TABLET PO (09:02)
[2022-05-14] MEDS: SIMVASTATIN 20 MG TABLET PO (09:02)
[2022-05-14] MEDS: MULTIVITAMINS THERAPEUTIC TAB (*BKC) 1 TABLET PO (09:02)
[2022-05-14] MEDS: guaiFENesin 600 MG/DEXTROMETHORPHAN 30 MG SR TAB 12 HR 1 TAB PO ×2 (09:02→21:11)
--- NOTE | 2022-05-14 09:25 | PM.PNPUL ---
Progress Note: A&P Assessment and Plan (1) Acute exacerbation of chronic obstructive airways disease: Code(s): J44.1 - Chronic obstructive pulmonary disease with (acute) exacerbation Status: Acute (2) CAP (community acquired pneumonia): Code(s): J18.9 - Pneumonia, unspecified organism Status: Acute Assessment and Plan: This 71-year-old man with very severe COPD chronic hypoxemic respiratory failure on supplemental oxygen was hospitalized with acute on chronic respiratory failure related to community-acquired pneumonia. Chest imaging studies have shown extensive infiltrate in right lower lobe due to streptococcal pneumonia. clinical status has improved with antibiotics. X-ray done 2 days ago showed only partial clearing of right lung extensive infiltrate, which explains need for high FiO2 Patient is being considered for COURTNEY as echocardiogram raised question of vegetation on aortic valve and patient had positive blood cultures for strep pneumonia. Patient has no other symptoms to suggest infective endocarditis. patient was started on IV vancomycin presumably for positive blood culture of Staph epidermidis. This could be contamination from skin and not a true bacteremia. chest x-ray showed no evidence of clinically significant pleural effusion on right. There has been slow improvement of hypoxemia due to extensive right lung pneumonia. Patient does not appear to be septic. he still on antibiotics. He has no symptoms to suggest nosocomial pneumonia. Plan: continue with same treatment for COPD, monitor respiratory status, out of bed to chair. (3) Emphysema of lung: Code(s): J43.9 - Emphysema, unspecified Status: Acute (4) COPD, very severe: Code(s): J44.9 - Chronic obstructive pulmonary disease, unspecified Status: Acute (5) Former smoker: Code(s): Z87.891 - Personal history of nicotine dependence Status: Acute (6) Hypoxemia: Code(s): R09.02 - Hypoxemia Status: Acute (7) Atrial fibrillation with RVR: Code(s): I48.91 - Unspecified atrial fibrillation Status: Acute Subjective Date/time seen: 05/14/22 09:25 patient with no new respiratory symptoms. Cough, shortness of breath unchanged over the last 24 hours. still on high-flow nasal cannula. Review of Systems Review of Systems: 12 point review of systems was assessed and was negative except as noted in the HPI Exam Narrative: GENERAL APPEARANCE: Well developed, well nourished, alert and cooperative, and appears to be in Mild respiratory distress while in bed, and breathing supplemental oxygen via HF nasal cannula SKIN: Inspection of the skin reveals no rashes, ulcerations or petechiae. HEENT: Sclerae anicteric and conjunctivae pink and moist. Extraocular movements were intact and pupils were equal, round. NECK: Supple. There was no thyroid enlargement, and no tenderness, or masses were felt. CHEST: increased AP diameter and normal contour without any kyphoscoliosis. LUNGS: Auscultation of the lungs diffuse crackles right lung posteriorly, distant breath sounds left lung no wheezing CARDIAC: There was irregular rate and rhythm; 2/6 systolic ejection murmur at the apex ABDOMEN: Soft and nontender with normal bowel sounds. There was no organomegaly. LYMPH NODES: No lymphadenopathy was appreciated in the neck. EXTREMITIES: No cyanosis, clubbing or edema. NEUROLOGIC: Alert and oriented x 3. Normal affect. Objective Data Vital Signs Vital Signs: Vital Signs - 24 hr 05/13/22 12:00 05/13/22 12:00 05/13/22 10:00 Temperature 36.4 C L Pulse Rate 107 H 99 83 Respiratory Rate 14 12 Blood Pressure 97/56 L Pulse Oximetry 93 94 Oxygen Delivery High Flow Therapy with Na Oxygen Flow Rate 35 Fraction of Inspired Oxygen 70 05/13/22 12:00 05/13/22 14:00 05/13/22 16:00 Temperature 36.2 C L Pulse Rate 91 86 100 Respiratory Rate 12 Blood Pressure 101/65 P
[2022-05-14] MEDS: PERFLUTREN LIPID MICROSPHERES 1.5 ML VIAL DILUTED TO 10 ML TOTAL VOLUME IV PUSH (11:00)
--- NOTE | 2022-05-14 11:26 | PCOTNOTE ---
Patient unavailable, having echo.
--- NOTE | 2022-05-14 14:57 | PCOTNOTE ---
Attempted to see patient, patient's reports patient got cleaned up with her earlier and wanted to stay up in chair. Patient declined OT at this time, will continue plan of care 05/15/22.
--- NOTE | 2022-05-14 15:27 | PM.PNCARD ---
Progress Note: A&P Assessment and Plan (1) Aortic valve disorders: Code(s): I35.9 - Nonrheumatic aortic valve disorder, unspecified Status: Acute Assessment and Plan: Suspicion for aortic valve endocarditis by 2D echo. COURTNEY advised, however, patient must be further stabilized from a respiratory perspective and will need to be performed with the assistance of Anesthesiology. He is largely unchanged but likely stable from a respiratory perspective to tolerate as discussed. Will keep NPO after midnight just in case we will reassess in a.m. but will need to coordinate with Anesthesiology availability. Patient verbalized understanding and agrees. Saturday patient continues to stabilize her respiratory respective will attempt to schedule Saturday with Anesthesiology. Keep NPO after midnight Saturday evening. Continue Xarelto 20 mg at bedtime. Monitor for bleeding. Follow H&H. Repeat 2D echo ordered today was technically difficult and unfortunately aortic valve was not well visualized. (2) Atrial fibrillation: Code(s): I48.91 - Unspecified atrial fibrillation Status: Acute Assessment and Plan: Heart rate reasonably controlled. Continue metoprolol tartrate 25 mg twice daily, diltiazem 30 mg p.o. q.6 hours. If remains stable today consider transition to longer-acting diltiazem as tolerated tomorrow BP permitting. (3) Bacteremia: Code(s): R78.81 - Bacteremia Status: Acute Assessment and Plan: Strep pneumonia. IV antibiotics per primary service. (4) COPD, very severe: Code(s): J44.9 - Chronic obstructive pulmonary disease, unspecified Status: Acute Assessment and Plan: Management per pulmonology and primary service. (5) CAP (community acquired pneumonia): Code(s): J18.9 - Pneumonia, unspecified organism Status: Acute Assessment and Plan: IV antibiotics, supportive care. (6) Thoracic aortic aneurysm without rupture: Code(s): I71.20 - Thoracic aortic aneurysm, without rupture, unspecified Status: Acute Assessment and Plan: Stable, no acute issues. Simvastatin discontinued due to interaction with diltiazem. Atorvastatin 10 mg daily as alternative. Subjective Date/time seen: Date of service: 05/14/22 15:27 Interval history: Follow-up visit in this 71-year-old man with: Streptococcal bacteremia and concern regarding the possibility of aortic valve endocarditis. Patient feels about the same. Short of breath with activity but no worse. Able to lie flat fairly comfortable denies chest pain, palpitations. No new issues overnight. Review of Systems Constitutional: Constitutional: Denies fever(s) Eyes: Eyes: Reports no additional eye complaints ENT: Denies epistaxis Cardiovascular: Cardiovascular: Denies chest pain, Denies pedal edema, Denies lightheadedness, Reports dyspnea and Reports dyspnea on exertion Respiratory: Respiratory: Reports chest congestion, Reports cough, Reports dyspnea and Reports dyspnea on exertion Gastrointestinal: Gastrointestinal: Denies abdominal pain and Denies hematochezia Genitourinary: Genitourinary: Denies hematuria and Denies dysuria Musculoskeletal: Musculoskeletal: Reports no additional musculoskeletal complaints Integumentary/Breasts: Skin/Breast: Reports system reviewed and no additional complaints, except as docu Neurologic: Reports system reviewed and no additional complaints, except as documented, Denies behavioral changes and Denies confusion Psychiatric: Psychiatric: Denies behavioral changes and Denies confusion Exam Const: General: cooperative, comfortable and no acute distress; No confusion Orientation/consciousness: oriented to person, patient oriented x3 and No confusion Other: Elderly white male with high-flow nasal cannula oxygen in place lying supine in bed appearing comfortable HENMT: Mouth: Yes moist mucous membranes Eyes: Sclera: sclerae normal EOM:
--- NOTE | 2022-05-14 15:43 | PM.IMPN ---
Progress Note: A&P Assessment and Plan (1) CAP (community acquired pneumonia): Code(s): J18.9 - Pneumonia, unspecified organism Status: Acute Assessment and Plan: CTA chest with right lower, right middle and right upper lobe. Daughter mentions ETOH abuse to nurse, so with this presentation consider aspiration pneumonia. -Cefepime 2g q8h, started 05/04/22 -Cultures positive for strep pneum, repeat blood cx NGTD -Azithromycin 5 day course has been completed -05/12: 35L/50% FiO2, cont to wean aggressively -05/13: On 35 L/65% FiO2, unsure why patient is worsening, suspect could be secondary to underlying endocarditis -05/14: Significant improvement today, down to 10 L high-flow, today is day 11 of cefepime, status post 5 days of azithromycin, repeat blood cultures are negative, MRSA swab also negative, continue cefepime until endocarditis officially ruled out with COURTNEY (2) Atrial fibrillation with RVR: Code(s): I48.91 - Unspecified atrial fibrillation Status: Acute Assessment and Plan: 05/09: Cont home Cardizem 60 mg q6h, metoprolol 25 mg q6h, and Xarelto, appreciate cardiology consultation 05/11: Cont afib, with worsening hypotension, will decrease dose of cardizem to 30 mg Q6h, metoprolol 25 mg Q12h, monitor 05/12: Stable BP, rate controlled, cont decreased doses for now 05/13: Stable (3) Acute exacerbation of chronic obstructive airways disease: Code(s): J44.1 - Chronic obstructive pulmonary disease with (acute) exacerbation Status: Acute Assessment and Plan: 05/09: Weaning steroids, on prednisone 20 mg daily, will d/c today, cont nebs with albuterol/ipratropium 05/10: Hypercapnia noted, would recommend BiPAP overnight, will give Restoril and Ativan as needed so patient is able to tolerate BiPAP to see if improving hypercapnia improves overall respiration 05/11: Tolerated BIPAP overnight, weaned to 35L hi kartik, appreciate pulm c/s, hypercapnia improved on BMP this am 05/12: Unable to tolerate BiPAP, will discuss options with pulmonary 05/13: Stable off BiPAP (4) Hypertension: Code(s): I10 - Essential (primary) hypertension Status: Acute Assessment and Plan: Atenolol and amlodipine have been discontinued, patient was started on metoprolol 05/11: Metoprolol decreased from 25 mg Q6h to Q12h, cardizem decreased from 60 mg Q6h to 30 mg Q6h 05/12: BP stable on lowered doses 05/13: Stable (5) Hyperlipidemia: Code(s): E78.5 - Hyperlipidemia, unspecified Status: Acute Assessment and Plan: Takes simvastatin 20 mg daily. Continue. (6) History of DVT (deep vein thrombosis): Code(s): Z86.718 - Personal history of other venous thrombosis and embolism Status: Acute Assessment and Plan: 05/09: Cont xarelto for h/o AAA with thrombus 05/11: Check AAA US to evaluate 05/12: Dilated proximal abdominal aorta up to 3.7 cm, no thrombus noted on ultrasound (7) Alcohol related disorder: Code(s): F10.99 - Alcohol use, unspecified with unspecified alcohol-induced disorder Status: Acute Assessment and Plan: Monitor. No withdrawal noted (8) Abnormal liver enzymes: Code(s): R74.8 - Abnormal levels of other serum enzymes Status: Acute Assessment and Plan: Continue to trend down (9) Bacteremia: Code(s): R78.81 - Bacteremia Status: Acute Assessment and Plan: 05/03: 1/2 bld cx positive for s. pneumo 05/08: Repeat blood and sputum cultures ordered, cont cefepime, started 05/04/2205/09: Possible vegetation on valve with echocardiogram, continue IV antibiotics, will likely need treated for endocarditis. Cardiology consult for possible COURTNEY - plan for COURTNEY once more medically stable from respiratory standpoint 05/11: Repeat blood cx NGTD, cont to monitor, sputum cx pos for yeast, monitor for now, cont cefepime, suspect low risk of bacteremia at this point due to /4 b
[2022-05-14] MEDS: RIVAROXABAN 20 MG TABLET PO (17:54)
[2022-05-14] MEDS: ZOLPIDEM TARTRATE (*CRX) 2.5 MG TABLET PO (23:20)
[2022-05-15] VITALS (19 sets, daily range): BP systolic 97–120; BP diastolic 61–78; PULSE 77–108; RESP 16–22; TEMP 35.5–36.6; O2SAT 89–98
[2022-05-15 05:06] LABS: Basophils Percent Auto 0.4 % (0.2-1.2); Eosinophils Absolute Auto 0.1 K/mm3 (0-0.3); Eosinophils Percent Auto 1.4 % (0-4.4); Hematocrit 37.8 % (42.0-52.0); Hemoglobin 12.4 g/dL (14.0-18.0); Immature Granulocyte Absolute 0.14 K/mm3 (0.00-0.031); Immature Granulocyte Percent A 1.7 % (0-0.5); Lymphocytes Absolute Auto 0.78 K/mm3 (0.9-3.2); Lymphocytes Percent Auto 9.3 % (18.3-44.2); Mean Corpuscular HGB Conc 32.8 g/dl (32-36); Mean Corpuscular Hemoglobin 31.5 pg (26-34); Mean Corpuscular Volume 95.9 fl (80-100); Mean Platelet Volume 10.1 fl (7.4-10.4); Monocytes Absolute Auto 1.2 K/mm3 (0.1-0.6); Monocytes Percent Auto 14.6 % (2.6-8.5); Neutrophils Absolute Auto 6.1 K/mm3 (1.3-6.7); Neutrophils Percent Auto 72.6 % (45.5-73.1); Platelet Count Result 291 k/mm3 (150-375); Red Blood Count 3.94 M/mm3 (4.6-6.20); Red Cell Distribution Width 13.4 % (11.5-14.5); White Blood Count 8.4 K/mm3 (4.5-10.0)
[2022-05-15 05:20] LABS: Alanine Aminotransferase 60 U/L (6-50); Albumin Level 2.7 g/dL (3.5-5.1); Alkaline Phosphatase 104 U/L (38-126); Anion Gap -1 mmol/L (8-16); Aspartate Amino Transferase 41 U/L (17-59); Bilirubin,Total 0.4 mg/dL (0.2-1.3); Blood Urea Nitrogen 9 mg/dL (9-20); Calcium 7.6 mg/dL (8.4-10.2); Carbon Dioxide 39 mmol/L (22-30); Chloride 91 mmol/L (98-107); Estimated CRCL calculation 128 ml/min; Estimated Glomerular Filt Rate > 60; Glucose 95 mg/dL (65-110); Potassium 3.4 mmol/L (3.4-5.0); Sodium 129 mmol/L (137-145)
[2022-05-15] MEDS: METOPROLOL TARTRATE 25 MG TABLET PO ×2 (05:26→17:49)
[2022-05-15] MEDS: MULTIVITAMINS THERAPEUTIC TAB (*BKC) 1 TABLET PO (08:31)
[2022-05-15] MEDS: FOLIC ACID 1 MG TABLET PO (08:31)
[2022-05-15] MEDS: guaiFENesin 600 MG/DEXTROMETHORPHAN 30 MG SR TAB 12 HR 1 TAB PO ×2 (08:31→21:10)
[2022-05-15] MEDS: ATORVASTATIN 10 MG TABLET PO (08:31)
--- NOTE | 2022-05-15 09:22 | PM.IMPN ---
Progress Note: A&P Assessment and Plan (1) CAP (community acquired pneumonia): Code(s): J18.9 - Pneumonia, unspecified organism Status: Acute Assessment and Plan: CTA chest with right lower, right middle and right upper lobe -Cefepime 2g q8h, started 05/04/22 -Azithromycin 5 day course has been completed -05/15: 92% on 6L hi kartik, cont cefepime, NABIL was supposed to be today, rescheduled to tomorrow (2) Atrial fibrillation with RVR: Code(s): I48.91 - Unspecified atrial fibrillation Status: Acute Assessment and Plan: Cont cardizem 30 mg Q6h, metoprolol 25 mg Q12h, monitor, decreased from home dose, stable (3) Acute exacerbation of chronic obstructive airways disease: Code(s): J44.1 - Chronic obstructive pulmonary disease with (acute) exacerbation Status: Acute Assessment and Plan: 05/09: Weaning steroids, on prednisone 20 mg daily, will d/c today, cont nebs with albuterol/ipratropium 05/10: Hypercapnia noted, would recommend BiPAP overnight 05/11: Tolerated BIPAP overnight, weaned to 35L hi kartik, appreciate pulm c/s, hypercapnia improved on BMP this am 05/12: Unable to tolerate BiPAP, will discuss options with pulmonary 05/13: Stable off BiPAP (4) Hypertension: Code(s): I10 - Essential (primary) hypertension Status: Acute Assessment and Plan: Atenolol and amlodipine have been discontinued, patient was started on metoprolol 05/11: Metoprolol decreased from 25 mg Q6h to Q12h, cardizem decreased from 60 mg Q6h to 30 mg Q6h 05/12: BP stable on lowered doses 05/13: Stable (5) Hyperlipidemia: Code(s): E78.5 - Hyperlipidemia, unspecified Status: Acute Assessment and Plan: Takes simvastatin 20 mg daily. Continue. (6) History of DVT (deep vein thrombosis): Code(s): Z86.718 - Personal history of other venous thrombosis and embolism Status: Acute Assessment and Plan: 05/09: Cont xarelto for h/o AAA with thrombus 05/11: Check AAA US to evaluate 05/12: Dilated proximal abdominal aorta up to 3.7 cm, no thrombus noted on ultrasound (7) Alcohol related disorder: Code(s): F10.99 - Alcohol use, unspecified with unspecified alcohol-induced disorder Status: Acute Assessment and Plan: Monitor. No withdrawal noted (8) Abnormal liver enzymes: Code(s): R74.8 - Abnormal levels of other serum enzymes Status: Acute Assessment and Plan: resolved, likely 2/2 hypoperfusion previously (9) Bacteremia: Code(s): R78.81 - Bacteremia Status: Acute Assessment and Plan: -1/2 bld cx positive for s. pneumo, cefepime started 05/04/22, possible vegetation on valve with echocardiogram, continue IV antibiotics, will likely need treated for endocarditis, cardiology consult for NABIL -Repeat blood cultures from the did come back showing Staphylococcus epidermis, multi-drug resistant, MRSA swab negative, suspected contaminant, d/c vanc -Repeat blood cultures from the NGTD -05/15: Plan for NABIL tomorrow, cont cefepime, repeat TTE done yesterday did not visualize aortic valve well enough to assess if possible vegetation remained (10) Insomnia: Code(s): G47.00 - Insomnia, unspecified Status: Acute Assessment and Plan: Cont ambien 2.5 mg nightly while in hospital (11) Hyponatremia: Code(s): E87.1 - Hypo-osmolality and hyponatremia Status: Acute Assessment and Plan: 129 today, asymptomatic, likely prerenal, will reassess tomorrow and consider gentle IVF hydration Plan DVT prophylaxis with Xarelto GI prophylaxis not indicated Code status full code Subjective Date/time seen: 05/15/22 09:22 Interval history: No overnight events noted. No chest pain or shortness of breath. No nausea, vomiting or diarrhea. No fevers or chills. Nabil was scheduled for today, was canceled and rescheduled to tomorrow at 2:30 p.m. R
--- NOTE | 2022-05-15 12:02 | PM.PNCARD ---
Progress Note: A&P Assessment and Plan (1) Aortic valve disorders: Code(s): I35.9 - Nonrheumatic aortic valve disorder, unspecified Status: Acute Assessment and Plan: Suspicion for aortic valve endocarditis by 2D echo. Will plan for COURTNEY 05/16 with Anesthesia assistance. Patient to be NPO at midnight. (2) Atrial fibrillation: Code(s): I48.91 - Unspecified atrial fibrillation Status: Acute Assessment and Plan: Heart rate reasonably controlled. Continue metoprolol tartrate 25 mg twice daily, diltiazem 30 mg p.o. q.6 hours. If remains stable today consider transition to longer-acting diltiazem as tolerated BP permitting. (3) Bacteremia: Code(s): R78.81 - Bacteremia Status: Acute Assessment and Plan: Strep pneumonia. IV antibiotics per primary service. (4) COPD, very severe: Code(s): J44.9 - Chronic obstructive pulmonary disease, unspecified Status: Acute Assessment and Plan: Management per pulmonology and primary service. (5) CAP (community acquired pneumonia): Code(s): J18.9 - Pneumonia, unspecified organism Status: Acute Assessment and Plan: IV antibiotics, supportive care. (6) Thoracic aortic aneurysm without rupture: Code(s): I71.20 - Thoracic aortic aneurysm, without rupture, unspecified Status: Acute Assessment and Plan: Stable, no acute issues. Simvastatin discontinued due to interaction with diltiazem. Atorvastatin 10 mg daily as alternative. Subjective Date/time seen: 05/15/22 12:02 Interval history: Follow-up visit in this 71-year-old man with: Streptococcal bacteremia and concern regarding the possibility of aortic valve endocarditis. Patient feels about the same. Short of breath with activity but no worse. Remains on HFNC. Review of Systems Review of Systems: 8-point ROS obtained. Negative, unless stated in HPI. Objective Data Vital Signs Vital Signs: Vital Signs - 24 hr 05/14/22 14:00 05/14/22 14:09 05/14/22 16:00 Temperature Pulse Rate 100 Respiratory Rate Blood Pressure Pulse Oximetry 98 96 Oxygen Delivery High Flow Nasal Cannula High Flow Nasal Cannula Oxygen Flow Rate 10 8 Fraction of Inspired Oxygen 05/14/22 16:00 05/14/22 16:00 05/14/22 17:54 Temperature 35.8 C L Pulse Rate 93 97 101 H Respiratory Rate 14 Blood Pressure 111/71 Pulse Oximetry 96 Oxygen Delivery Oxygen Flow Rate Fraction of Inspired Oxygen 05/14/22 18:00 05/14/22 18:22 05/14/22 18:30 Temperature Pulse Rate 94 Respiratory Rate Blood Pressure Pulse Oximetry 97 97 Oxygen Delivery High Flow Therapy with Na High Flow Nasal Cannula Oxygen Flow Rate 35 6 Fraction of Inspired Oxygen 60 05/14/22 20:00 05/14/22 20:23 05/14/22 20:00 Temperature 36.9 C Pulse Rate 85 83 90 Respiratory Rate 20 20 Blood Pressure 117/66 Pulse Oximetry 90 92 Oxygen Delivery High Flow Nasal Cannula Oxygen Flow Rate 6 Fraction of Inspired Oxygen 05/14/22 20:00 05/14/22 21:19 05/14/22 23:32 Temperature 37.3 C Pulse Rate 90 74 77 Respiratory Rate 20 20 Blood Pressure 117/72 Pulse Oximetry 94 95 Oxygen Delivery High Flow Nasal Cannula Oxygen Flow Rate 6 Fraction of Inspired Oxygen 60 05/15/22 00:00 05/15/22 00:00 05/15/22 02:00 Temperature Pulse Rate 95 95 84 Respiratory Rate 20 Blood Pressure Pulse Oximetry 95 Oxygen Delivery High Flow Nasal Cannula Oxygen Flow Rate 6 Fraction of Inspired Oxygen 60 05/15/22 04:00 05/15/22 04:00 05/15/22 04:00 Temperature 36.3 C L Pulse Rate 88 88 94 Respiratory Rate 20 20 Blood Pressure 117/67 Pulse Oximetry 92 92 Oxygen Delivery High Flow Nasal Cannula Oxygen Flow Rate 6 Fraction of Inspired Oxygen 60 05/15/22 05:26 05/15/22 06:00 05/15/22 08:00 Temperature 36.5 C Pulse Rate 92 88 86 Respiratory Rate 16 Blood Pressure 120/78
[2022-05-15] MEDS: IPRATROPIUM BR 0.02% INH SOLN 0.5 MG/2.5 ML VIAL INHALATION (12:07)
[2022-05-15] MEDS: LORazepam (*CRX) 0.5 MG TABLET PO (12:31)
--- NOTE | 2022-05-15 12:38 | PM.PNPUL ---
Progress Note: A&P Assessment and Plan (1) Acute exacerbation of chronic obstructive airways disease: Code(s): J44.1 - Chronic obstructive pulmonary disease with (acute) exacerbation Status: Acute (2) CAP (community acquired pneumonia): Code(s): J18.9 - Pneumonia, unspecified organism Status: Acute Assessment and Plan: This 71-year-old man with very severe COPD chronic hypoxemic respiratory failure on supplemental oxygen was hospitalized with acute on chronic respiratory failure related to community-acquired pneumonia. Chest imaging studies have shown extensive infiltrate in right lower lobe due to streptococcal pneumonia. clinical status has improved with antibiotics. X-ray done 2 days ago showed only partial clearing of right lung extensive infiltrate, which explains need for high FiO2 Patient is being considered for COURTNEY as echocardiogram raised question of vegetation on aortic valve and patient had positive blood cultures for strep pneumonia. Patient has no other symptoms to suggest infective endocarditis. patient was started on IV vancomycin presumably for positive blood culture of Staph epidermidis. This could be contamination from skin and not a true bacteremia. chest x-ray showed no evidence of clinically significant pleural effusion on right. There has been slow improvement of hypoxemia due to extensive right lung pneumonia. currently his FiO2 is lower than yesterday. WBC within normal range. Negative screening for MRSA. Patient is still on antibiotics for unclear reason; from respiratory standpoint he does not need to be on antibiotics. Plan: continue with same treatment for COPD, monitor respiratory status, out of bed to chair. (3) Emphysema of lung: Code(s): J43.9 - Emphysema, unspecified Status: Acute (4) COPD, very severe: Code(s): J44.9 - Chronic obstructive pulmonary disease, unspecified Status: Acute (5) Former smoker: Code(s): Z87.891 - Personal history of nicotine dependence Status: Acute (6) Hypoxemia: Code(s): R09.02 - Hypoxemia Status: Acute (7) Atrial fibrillation with RVR: Code(s): I48.91 - Unspecified atrial fibrillation Status: Acute Subjective Date/time seen: 05/15/22 12:38 Patient has no new respiratory symptoms. Mild coughing as before. Afebrile he is still on antibiotics. On lower FiO2 today. Anxious about upcoming COURTNEY. Review of Systems Review of Systems: 12 point review of systems was assessed and was negative except as noted in the HPI Exam Narrative: GENERAL APPEARANCE: Well developed, well nourished, alert and cooperative, and appears to be in Mild respiratory distress while in bed, and breathing supplemental oxygen via HF nasal cannula SKIN: Inspection of the skin reveals no rashes, ulcerations or petechiae. HEENT: Sclerae anicteric and conjunctivae pink and moist. Extraocular movements were intact and pupils were equal, round. NECK: Supple. There was no thyroid enlargement, and no tenderness, or masses were felt. CHEST: increased AP diameter and normal contour without any kyphoscoliosis. LUNGS: Auscultation of the lungs diffuse crackles right lung posteriorly, distant breath sounds left lung no wheezing CARDIAC: There was irregular rate and rhythm; 2/6 systolic ejection murmur at the apex ABDOMEN: Soft and nontender with normal bowel sounds. There was no organomegaly. LYMPH NODES: No lymphadenopathy was appreciated in the neck. EXTREMITIES: No cyanosis, clubbing or edema. NEUROLOGIC: Alert and oriented x 3. Normal affect. Objective Data Vital Signs Vital Signs: Vital Signs - 24 hr 05/14/22 14:00 05/14/22 14:09 05/14/22 16:00 Temperature Pulse Rate 100 Respiratory Rate Blood Pressure Pulse Oximetry 98 96 Oxygen Delivery High Flow Nasal Cannula High Flow Nasal Cannula Oxygen Flow Rate 10 8 Fraction of Inspired Oxygen 05/14/22 16:00
--- NOTE | 2022-05-15 13:42 | PCOTNOTE ---
Attempted to see patient for OT this PM, patient refused. Patient's present at bedside. Patient reports wanting to wait until after my procedure (COURTNEY) before getting into all this. Patient encouraged to participate in OT for improved wellness and return to independence. Patient continued to decline OT at this time. Patient requested therapist try again tomorrow morning prior to COURTNEY to see for OT for ADLs. Will continue plan of care for OT.
--- NOTE | 2022-05-15 14:05 | PCPTNOTE ---
Attempted to see patient for PT this afternoon, however patient refused. Patient reported he wanted to wait after his procedure (COURTNEY) tomorrow before doing any PT. Educated patient on the importance and benefits of therapy, patient continued to refuse.
[2022-05-15] MEDS: RIVAROXABAN 20 MG TABLET PO (17:49)
[2022-05-15] MEDS: ZOLPIDEM TARTRATE (*CRX) 2.5 MG TABLET PO (21:11)
[2022-05-16] VITALS (25 sets, daily range): BP systolic 106–147; BP diastolic 59–89; PULSE 74–102; RESP 14–24; TEMP 36.4–37.2; O2SAT 87–100
[2022-05-16 05:08] LABS: Basophils Absolute Auto 0.1 K/mm3 (0.0-0.1); Basophils Percent Auto 0.7 % (0.2-1.2); Eosinophils Absolute Auto 0.1 K/mm3 (0-0.3); Eosinophils Percent Auto 1.3 % (0-4.4); Hematocrit 38.3 % (42.0-52.0); Hemoglobin 12.5 g/dL (14.0-18.0); Immature Granulocyte Percent A 1.2 % (0-0.5); Lymphocytes Absolute Auto 0.87 K/mm3 (0.9-3.2); Lymphocytes Percent Auto 10.1 % (18.3-44.2); Mean Corpuscular HGB Conc 32.6 g/dl (32-36); Mean Corpuscular Hemoglobin 31.8 pg (26-34); Mean Corpuscular Volume 97.5 fl (80-100); Mean Platelet Volume 10.1 fl (7.4-10.4); Monocytes Absolute Auto 1.4 K/mm3 (0.1-0.6); Monocytes Percent Auto 16.4 % (2.6-8.5); Neutrophils Percent Auto 70.3 % (45.5-73.1); Platelet Count Result 289 k/mm3 (150-375); Red Blood Count 3.93 M/mm3 (4.6-6.20); Red Cell Distribution Width 13.3 % (11.5-14.5); White Blood Count 8.6 K/mm3 (4.5-10.0)
[2022-05-16 05:27] LABS: Alanine Aminotransferase 55 U/L (6-50); Albumin Level 2.7 g/dL (3.5-5.1); Alkaline Phosphatase 111 U/L (38-126); Anion Gap 1 mmol/L (8-16); Aspartate Amino Transferase 38 U/L (17-59); Bilirubin,Total 0.5 mg/dL (0.2-1.3); Blood Urea Nitrogen 8 mg/dL (9-20); Calcium 7.8 mg/dL (8.4-10.2); Carbon Dioxide 38 mmol/L (22-30); Chloride 92 mmol/L (98-107); Estimated CRCL calculation 127 ml/min; Estimated Glomerular Filt Rate > 60; Glucose 98 mg/dL (65-110); Potassium 3.4 mmol/L (3.4-5.0); Sodium 131 mmol/L (137-145)
[2022-05-16] MEDS: METOPROLOL TARTRATE 25 MG TABLET PO ×2 (05:37→17:13)
[2022-05-16] MEDS: FOLIC ACID 1 MG TABLET PO (08:34)
[2022-05-16] MEDS: guaiFENesin 600 MG/DEXTROMETHORPHAN 30 MG SR TAB 12 HR 1 TAB PO ×2 (08:34→20:59)
[2022-05-16] MEDS: MULTIVITAMINS THERAPEUTIC TAB (*BKC) 1 TABLET PO (08:34)
[2022-05-16] MEDS: ATORVASTATIN 10 MG TABLET PO (08:34)
--- NOTE | 2022-05-16 10:12 | PM.IMPN ---
Progress Note: A&P Assessment and Plan (1) CAP (community acquired pneumonia): Code(s): J18.9 - Pneumonia, unspecified organism Status: Acute Assessment and Plan: CTA chest with right lower, right middle and right upper lobe -Cefepime 2g q8h, started 05/04/22 -Azithromycin 5 day course has been completed This is from streptococcal pneumonia. Will be able to change to ceftriaxone once a day at discharge (2) Atrial fibrillation with RVR: Code(s): I48.91 - Unspecified atrial fibrillation Status: Acute Assessment and Plan: Cont cardizem 30 mg Q6h, metoprolol 25 mg Q12h, monitor, decreased from home dose, stable (3) Acute exacerbation of chronic obstructive airways disease: Code(s): J44.1 - Chronic obstructive pulmonary disease with (acute) exacerbation Status: Acute Assessment and Plan: 05/09: Weaning steroids, on prednisone 20 mg daily, will d/c today, cont nebs with albuterol/ipratropium 05/10: Hypercapnia noted, would recommend BiPAP overnight 05/11: Tolerated BIPAP overnight, weaned to 35L hi kartik, appreciate pulm c/s, hypercapnia improved on BMP this am 05/12: Unable to tolerate BiPAP, will discuss options with pulmonary 05/13: Stable off BiPAP (4) Hypertension: Code(s): I10 - Essential (primary) hypertension Status: Acute Assessment and Plan: Atenolol and amlodipine have been discontinued, patient was started on metoprolol 05/11: Metoprolol decreased from 25 mg Q6h to Q12h, cardizem decreased from 60 mg Q6h to 30 mg Q6h 05/12: BP stable on lowered doses 05/13: Stable (5) Hyperlipidemia: Code(s): E78.5 - Hyperlipidemia, unspecified Status: Acute Assessment and Plan: Takes simvastatin 20 mg daily. Continue. (6) History of DVT (deep vein thrombosis): Code(s): Z86.718 - Personal history of other venous thrombosis and embolism Status: Acute Assessment and Plan: 05/09: Cont xarelto for h/o AAA with thrombus 05/11: Check AAA US to evaluate 05/12: Dilated proximal abdominal aorta up to 3.7 cm, no thrombus noted on ultrasound (7) Alcohol related disorder: Code(s): F10.99 - Alcohol use, unspecified with unspecified alcohol-induced disorder Status: Acute Assessment and Plan: Monitor. No withdrawal noted (8) Abnormal liver enzymes: Code(s): R74.8 - Abnormal levels of other serum enzymes Status: Acute Assessment and Plan: resolved, likely 2/2 hypoperfusion previously (9) Bacteremia: Code(s): R78.81 - Bacteremia Status: Acute Assessment and Plan: -2/2 bld cx 05/03 positive for s. pneumo, cefepime started 05/04/22, possible vegetation on valve with echocardiogram, continue IV antibiotics, will likely need treated for endocarditis, cardiology consult for COURTNEY scheduled for 05/16 -Repeat blood cultures from the did come back showing Staphylococcus epidermis, multi-drug resistant, MRSA swab negative, suspected contaminant, d/c vanc -Repeat blood cultures from the NGTD Repeat TTE done did not visualize aortic valve well enough to assess if possible vegetation remained (10) Insomnia: Code(s): G47.00 - Insomnia, unspecified Status: Acute Assessment and Plan: Cont ambien 2.5 mg nightly while in hospital (11) Hyponatremia: Code(s): E87.1 - Hypo-osmolality and hyponatremia Status: Acute Assessment and Plan: Mild continue to monitor Plan DVT prophylaxis with Xarelto GI prophylaxis not indicated Code status full code Disposition: PT OT to see. Prefers to go to rehabilitation Subjective Date/time seen: 05/16/22 10:12 Interval history: No overnight events noted. Patient feeling better. Still gets weak and short of breath on exertion. No leg swelling. No chest pain. Cough persists. Remains afebrile. Plan for COURTNEY today. Review of Systems Review of Systems: All systems reviewe
--- NOTE | 2022-05-16 11:04 | PM.PNCARD ---
Progress Note: A&P Assessment and Plan (1) Aortic valve disorders: Code(s): I35.9 - Nonrheumatic aortic valve disorder, unspecified Status: Acute Assessment and Plan: Suspicion for aortic valve endocarditis by 2D echo. COURTNEY 05/16 with Anesthesia assistance. (2) Atrial fibrillation: Code(s): I48.91 - Unspecified atrial fibrillation Status: Acute Assessment and Plan: Heart rate reasonably controlled. Continue metoprolol tartrate 25 mg twice daily, diltiazem 30 mg p.o. q.6 hours. If remains stable today consider transition to longer-acting diltiazem as tolerated BP permitting. (3) Bacteremia: Code(s): R78.81 - Bacteremia Status: Acute Assessment and Plan: Strep pneumonia. IV antibiotics per primary service. (4) COPD, very severe: Code(s): J44.9 - Chronic obstructive pulmonary disease, unspecified Status: Acute Assessment and Plan: Management per pulmonology and primary service. (5) CAP (community acquired pneumonia): Code(s): J18.9 - Pneumonia, unspecified organism Status: Acute Assessment and Plan: IV antibiotics, supportive care. (6) Thoracic aortic aneurysm without rupture: Code(s): I71.20 - Thoracic aortic aneurysm, without rupture, unspecified Status: Acute Assessment and Plan: Stable, no acute issues. Simvastatin discontinued due to interaction with diltiazem. Atorvastatin 10 mg daily as alternative. Subjective Date/time seen: 05/16/22 11:04 Interval history: Follow-up visit in this 71-year-old man with: Streptococcal bacteremia and concern regarding the possibility of aortic valve endocarditis. Patient feels about the same. Remains on HFNC. COURTNEY planned for today at 2:30PM. Review of Systems Review of Systems: 8-point ROS obtained. Negative, unless stated in HPI. Exam Const: General: cooperative, comfortable and no acute distress Other: Elderly white male with high-flow nasal cannula oxygen in place lying supine in bed appearing comfortable HENMT: Mouth: Yes moist mucous membranes Eyes: General: appearance normal, both eyes and all related structures Neck: Neck: supple Resp: Effort & Inspection: normal respiratory effort Auscultation: diminished lung sounds Other: Breath sounds diminished in both lung martinez no rales no wheezing Cardio: Rate: regular rate Rhythm: regular rhythm and abnormal rhythm irregularly irregular Heart sounds: no murmurs Other: Soft systolic murmur at the left sternal border without radiation Skin: General skin exam: normal color Other: Some areas of ecchymosis, no splinter hemorrhages/Janeway lesions or Osler's nodes apparent Neuro: General: oriented to person and patient oriented x3 Other: Cognitively intact alert and oriented Extrem: Right lower extremity: no edema Left lower extremity: no edema Psych: Appearance: grossly normal Mental Status: mental status grossly normal Other: Common appropriate Objective Data Vital Signs Vital Signs: Vital Signs - 24 hr 05/15/22 12:00 05/15/22 12:00 05/15/22 12:07 Temperature Pulse Rate 108 H 102 H Respiratory Rate 22 H Blood Pressure Pulse Oximetry 95 Oxygen Delivery High Flow Nasal Cannula Oxygen Flow Rate 10 Fraction of Inspired Oxygen 05/15/22 12:08 05/15/22 12:16 05/15/22 12:00 Temperature 36.4 C L Pulse Rate 108 H 100 Respiratory Rate 20 22 H Blood Pressure 110/77 Pulse Oximetry 90 90 Oxygen Delivery High Flow Nasal Cannula Oxygen Flow Rate 15 Fraction of Inspired Oxygen 05/15/22 14:38 05/15/22 14:00 05/15/22 16:00 Temperature Pulse Rate 93 Respiratory Rate Blood Pressure Pulse Oximetry 98 93 Oxygen Delivery High Flow Nasal Cannula High Flow Nasal Cannula Oxygen Flow Rate 7 4 Fraction of Inspired Oxygen 05/15/22 16:00 05/15/22 16:00 05/15/22 18:00 Temperature 35.5 C L Pulse Rate 88 92 96 Respir
--- NOTE | 2022-05-16 12:39 | WPDANESEPPF ---
Anes - Initial Pre Proc Eval Procedure: Operation Date: 05/16/22 14:30 Proposed Procedures p Trans Esophageal Echo - Jeyson Shipley MD Date/Time: 05/16/22 12:39 Surgeon: Glenn Heaton MD Pre Op Diagnosis: RESPIRATORY FAILURE,PNEUMONIA,HYPOXIA Patient Data Age: 71 Gender: M Height: 1.78 m Weight: 95.6 kg Last Vital Signs Temp 97.5 F L 05/16/22 12:00 Pulse 86 05/16/22 12:00 Resp 24 H 05/16/22 12:00 BP 126/72 05/16/22 12:00 Pulse Ox 96 05/16/22 12:00 O2 Del Method High Flow Nasal Cannula 05/16/22 08:00 O2 Flow Rate 6 05/16/22 08:00 FiO2 60 05/16/22 04:00 Allergies Allergy/AdvReac Type Severity Reaction Status Date / Time No Known Allergies Allergy Verified 05/03/22 07:50 Home Medications Medication Instructions Recorded Confirmed Type albuterol sulfate 90 mcg/actuation 1 inhalation inhalation Q4H 05/27/19 05/03/22 History aerosol inhaler (Ventolin HFA) amlodipine 5 mg tablet 5 mg PO DAILY 05/27/19 05/03/22 History atenolol 100 mg tablet 100 mg PO DAILY 05/27/19 05/03/22 History multivitamin (Multiple Vitamins 1 tablet PO DAILY 05/27/19 05/03/22 History tablet) rivaroxaban 20 mg tablet (Xarelto) 20 mg PO DAILY 05/27/19 05/03/22 History simvastatin 20 mg tablet 20 mg PO DAILY 05/27/19 05/03/22 History albuterol sulfate 2.5 mg/3 mL 2.5 mg inhalation Q4-6H PRN 05/28/19 05/03/22 History (0.083 %) solution for nebulization Shortness Of Breath budesonide 160 mcg-glycopyr 9 2 inh inhalation QAM AND QPM #10.7 05/26/21 05/03/22 Rx mcg-formot 4.8 mcg/actuation HFA grams inhaler (Breztri Aerosphere) Laboratory Tests 05/16/22 05/16/22 04:45 04:45 WBC 8.6 K/mm3 K/mm3 (4.5-10.0) RBC 3.93 M/mm3 L M/mm3 (4.6-6.20) Hgb 12.5 g/dL L g/dL (14.0-18.0) Hct 38.3 % L % (42.0-52.0) MCV 97.5 fl fl (80-100) MCH 31.8 pg pg (26-34) MCHC 32.6 g/dl g/dl (32-36) RDW 13.3 % % (11.5-14.5) Plt Count 289 k/mm3 k/mm3 (150-375) MPV 10.1 fl fl (7.4-10.4) Immature Gran % (Auto) 1.2 % H % (0-0.5) Neut % (Auto) 70.3 % % (45.5-73.1) Lymph % (Auto) 10.1 % L % (18.3-44.2) Davison % (Auto) 16.4 % H % (2.6-8.5) Eos % (Auto) 1.3 % % (0-4.4) Baso % (Auto) 0.7 % % (0.2-1.2) Lymph # (Auto) 0.87 K/mm3 L K/mm3 (0.9-3.2) Davison # (Auto) 1.4 K/mm3 H K/mm3 (0.1-0.6) Eos # (Auto) 0.1 K/mm3 K/mm3 (0-0.3) Baso # (Auto) 0.1 K/mm3 K/mm3 (0.0-0.1) Abs Immat Gran (auto) 0.10 K/mm3 H K/mm3 (0.00-0.031) Absolute Neuts (auto) 6.0 K/mm3 K/mm3 (1.3-6.7) Absolute Nucleated RBC 0.0 K/mm3 K/mm3 (0.0-0.012) Nucleated RBC % 0.0 % % (0.0-0.2) Sodium 131 mmol/L L mmol/L (137-145) Potassium 3.4 mmol/L mmol/L (3.4-5.0) Chloride 92 mmol/L L mmol/L (98-107) Carbon Dioxide 38 mmol/L H mmol/L (22-30) Anion Gap 1 mmol/L L mmol/L (8-16) BUN 8 mg/dL L mg/dL (9-20) Creatinine 0.50 mg/dL L mg/dL (0.7-1.3) Estim Creat Clear Calc 127 ml/min ml/min Estimated GFR > 60 (59 - ) Glucose 98 mg/dL mg/dL (65-110) Calcium 7.8 mg/dL L mg/dL (8.4-10.2) Total Bilirubin 0.5 mg/dL mg/dL (0.2-1.3) AST 38 U/L U/L (17-59) ALT 55 U/L H U/L (6-50) Alkaline Phosphatase 111 U/L U/L (38-126) Total Protein 6.0 g/dL L g/dL (6.3-8.2) Albumin 2.7 g/dL L g/dL (3.5-5.1) Results Review: All pre-operative results and documents have been reviewed as part of the pre-operative evaluation. [facility] Past Medical History Medical History COPD exacerbation History of DVT (deep vein thrombosis) History of prostate cancer Hyperlipidemia Hypertension Sleep apnea Thoracic aortic aneurysm without rupture Surgical History Surgical History (Reviewed
--- NOTE | 2022-05-16 13:56 | PCOTNOTE ---
Attempted to see patient this pm, however patient getting ready to go to [facility] at this time.
--- NOTE | 2022-05-16 14:31 | WPDANESEPPF ---
Anes - Initial Pre Proc Eval Procedure: Operation Date: 05/16/22 14:30 Proposed Procedures p Trans Esophageal Echo - Jeyson Shipley MD Date/Time: 05/16/22 14:31 Surgeon: Glenn Heaton MD Pre Op Diagnosis: RESPIRATORY FAILURE,PNEUMONIA,HYPOXIA Patient Data Age: 71 Gender: M Height: 1.78 m Weight: 95.6 kg Last Vital Signs Temp 36.4 C L 05/16/22 12:00 Pulse 86 05/16/22 12:00 Resp 24 H 05/16/22 12:00 BP 126/72 05/16/22 12:00 Pulse Ox 93 05/16/22 12:00 O2 Del Method High Flow Nasal Cannula 05/16/22 12:00 O2 Flow Rate 6 05/16/22 12:00 FiO2 60 05/16/22 04:00 Allergies Allergy/AdvReac Type Severity Reaction Status Date / Time No Known Allergies Allergy Verified 05/03/22 07:50 Home Medications Medication Instructions Recorded Confirmed Type albuterol sulfate 90 mcg/actuation 1 inhalation inhalation Q4H 05/27/19 05/03/22 History aerosol inhaler (Ventolin HFA) amlodipine 5 mg tablet 5 mg PO DAILY 05/27/19 05/03/22 History atenolol 100 mg tablet 100 mg PO DAILY 05/27/19 05/03/22 History multivitamin (Multiple Vitamins 1 tablet PO DAILY 05/27/19 05/03/22 History tablet) rivaroxaban 20 mg tablet (Xarelto) 20 mg PO DAILY 05/27/19 05/03/22 History simvastatin 20 mg tablet 20 mg PO DAILY 05/27/19 05/03/22 History albuterol sulfate 2.5 mg/3 mL 2.5 mg inhalation Q4-6H PRN 05/28/19 05/03/22 History (0.083 %) solution for nebulization Shortness Of Breath budesonide 160 mcg-glycopyr 9 2 inh inhalation QAM AND QPM #10.7 05/26/21 05/03/22 Rx mcg-formot 4.8 mcg/actuation HFA grams inhaler (Breztri Aerosphere) Laboratory Tests 05/16/22 05/16/22 04:45 04:45 WBC 8.6 K/mm3 K/mm3 (4.5-10.0) RBC 3.93 M/mm3 L M/mm3 (4.6-6.20) Hgb 12.5 g/dL L g/dL (14.0-18.0) Hct 38.3 % L % (42.0-52.0) MCV 97.5 fl fl (80-100) MCH 31.8 pg pg (26-34) MCHC 32.6 g/dl g/dl (32-36) RDW 13.3 % % (11.5-14.5) Plt Count 289 k/mm3 k/mm3 (150-375) MPV 10.1 fl fl (7.4-10.4) Immature Gran % (Auto) 1.2 % H % (0-0.5) Neut % (Auto) 70.3 % % (45.5-73.1) Lymph % (Auto) 10.1 % L % (18.3-44.2) Ritchie % (Auto) 16.4 % H % (2.6-8.5) Eos % (Auto) 1.3 % % (0-4.4) Baso % (Auto) 0.7 % % (0.2-1.2) Lymph # (Auto) 0.87 K/mm3 L K/mm3 (0.9-3.2) Ritchie # (Auto) 1.4 K/mm3 H K/mm3 (0.1-0.6) Eos # (Auto) 0.1 K/mm3 K/mm3 (0-0.3) Baso # (Auto) 0.1 K/mm3 K/mm3 (0.0-0.1) Abs Immat Gran (auto) 0.10 K/mm3 H K/mm3 (0.00-0.031) Absolute Neuts (auto) 6.0 K/mm3 K/mm3 (1.3-6.7) Absolute Nucleated RBC 0.0 K/mm3 K/mm3 (0.0-0.012) Nucleated RBC % 0.0 % % (0.0-0.2) Sodium 131 mmol/L L mmol/L (137-145) Potassium 3.4 mmol/L mmol/L (3.4-5.0) Chloride 92 mmol/L L mmol/L (98-107) Carbon Dioxide 38 mmol/L H mmol/L (22-30) Anion Gap 1 mmol/L L mmol/L (8-16) BUN 8 mg/dL L mg/dL (9-20) Creatinine 0.50 mg/dL L mg/dL (0.7-1.3) Estim Creat Clear Calc 127 ml/min ml/min Estimated GFR > 60 (59 - ) Glucose 98 mg/dL mg/dL (65-110) Calcium 7.8 mg/dL L mg/dL (8.4-10.2) Total Bilirubin 0.5 mg/dL mg/dL (0.2-1.3) AST 38 U/L U/L (17-59) ALT 55 U/L H U/L (6-50) Alkaline Phosphatase 111 U/L U/L (38-126) Total Protein 6.0 g/dL L g/dL (6.3-8.2) Albumin 2.7 g/dL L g/dL (3.5-5.1) Patient hx anesthesia problems: none Family hx anesthesia problems: none Results Review: All pre-operative results and documents have been reviewed as part of the pre-operative evaluation. [facility] Past Medical History Medical History COPD exacerbation History of DVT (deep vein thrombosis) History of prostate cancer Hyperlipidemia Hypertension Sleep apnea Thoracic aortic aneu
--- NOTE | 2022-05-16 14:52 | PCPTNOTE ---
The patient treatment was not able to be completed on 05/16/2022 due to patient out of room for procedure. Will plan to continue treatment per plan of care.
--- NOTE | 2022-05-16 15:35 | P.PCNTEE_ITS ---
[facility] TransEsophageal Echocardiogram Date of procedure: 05/16/22 Procedure Type: Date of Procedure: 05/16/2022 Brief History Of Present Illness: Patient is a pleasant 71-year-old male with bacteremia who is referred for transesophageal echocardiogram for evaluation for infective endocarditis. Procedure In Detail: After verbal and written informed consent was obtained, the patient risks, benefits, and alternatives explained in detail. The patient agreed to proceed with the plan of care as outlined above.?The patient was evaluated at bedside. Given patient is on high-flow nasal cannula, procedure was done with the allison quarles of Anesthesia team in the GI endoscopy room. The posterior oropharynx, neck, and jaw angle all within normal limits on examination. Lungs were clear to auscultation. See Anesthesia note for further details on sedation. The patient was then placed in the appropriate 30 to 45 degree angle supine position at a slight left lateral decubitus position.?Patient was monitored throughout the study with telemetry, oxygen saturation, end-tidal CO2 monitoring, blood pressure, heart rate, and respirations.? The posterior hypopharynx was then locally anesthetized using repeated administration of Hurricaine spray as well as gargled viscous lidocaine.? After local anesthetic of the posterior hypopharynx was achieved and the oral bite block placed. The transesophageal echocardiogram probe was advanced through the oral bite block into the posterior hypopharynx and into the esophagus easily and without complication.? Multiple, multiplanar echocardiographic images were obtained in multiple standard re- projections.? Pulsed wave, continuous-wave, and color-flow Doppler were utilized in conjunction with this study.? At the conclusion of the study, the transesophageal echocardiogram probe was removed easily and without complication.? The patient tolerated the procedure well without difficulty.? Patient was in sinus rhythm throughout the study. Moderate Sedation/Anesthesia administration: Anesthesia done by the Anesthesia team. FINDINGS: LEFT VENTRICLE: Size and systolic function were within normal limits without wall motion abnormalities with ejection fraction of 60-65%. RIGHT VENTRICLE:? Size and systolic function within normal limits. LEFT ATRIUM: Normal size. RIGHT ATRIUM: Normal size. INTERATRIAL SEPTUM: ? Interatrial septum appears slightly aneurysmal. MITRAL VALVE: ? Mitral valve is anatomically normal with preserved leaflet excursion and mild regurgitation. No evidence of valvular vegetation. AORTIC VALVE: The aortic valve was an anatomically normal 3 leaflet structure. There is a non-mobile calcified nodule at the commissure of the left and right coronary cusps. No valvular vegetation. There is mild aortic valve regurgitation. TRICUSPID VALVE: The tricuspid valve is anatomically normal with normal leaflet excursion with trivial regurgitation identified.? No mobile elements identified. PULMONIC VALVE: Pulmonic valve is grossly normal. No evidence of valvular vegetation. LEFT ATRIAL APPENDAGE: Anatomically normal structure with prominent pectinate muscles without thrombus or vegetation identified. ? PERICARDIUM: The pericardium was anatomically normal without significant pericardial effusion. ? AORTA: Deep transgastric views were not obtained. Mid esophageal views of aorta showed mild plaque. Complications: None This dictation may have been done utilizing a voice recognition system.? Attempts have been made to correct errors. However, there may be uncorrected grammatical, spelling, and recognition errors present.
[2022-05-16] MEDS: RIVAROXABAN 20 MG TABLET PO (17:13)
[2022-05-16] MEDS: ACETAMINOPHEN 325 MG TABLET 650 MG PO (20:58)
[2022-05-16] MEDS: MENTHOL 10% / METHYL SALICYLATE 15% 57 GM TUBE 1 APPLIC TOPICAL (20:59)
[2022-05-16] MEDS: ZOLPIDEM TARTRATE (*CRX) 2.5 MG TABLET PO (20:59)
[2022-05-17] VITALS (21 sets, daily range): BP systolic 113–120; BP diastolic 63–82; PULSE 74–96; RESP 16–24; TEMP 36.4–36.9; O2SAT 89–99
[2022-05-17 01:23] LABS: Vancomycin Trough 18.8 ug/mL (10.0-20.0)
--- NOTE | 2022-05-17 02:17 | PCRCNOTE ---
pt desatting to 87% on 15L HFNC. RT placed pt back on AIRVO 45L/70%. pt sats are up to 95%. clear breathsounds bilaterally. RT will try to titrate 02 again if pt's sats are stable.
[2022-05-17 05:02] LABS: Basophils Absolute Auto 0.1 K/mm3 (0.0-0.1); Basophils Percent Auto 0.6 % (0.2-1.2); Eosinophils Absolute Auto 0.1 K/mm3 (0-0.3); Eosinophils Percent Auto 1.5 % (0-4.4); Hematocrit 36.3 % (42.0-52.0); Immature Granulocyte Absolute 0.08 K/mm3 (0.00-0.031); Lymphocytes Absolute Auto 0.84 K/mm3 (0.9-3.2); Lymphocytes Percent Auto 10.5 % (18.3-44.2); Mean Corpuscular HGB Conc 33.1 g/dl (32-36); Mean Corpuscular Hemoglobin 31.3 pg (26-34); Mean Corpuscular Volume 94.8 fl (80-100); Mean Platelet Volume 10.1 fl (7.4-10.4); Monocytes Absolute Auto 1.4 K/mm3 (0.1-0.6); Monocytes Percent Auto 17.7 % (2.6-8.5); Neutrophils Absolute Auto 5.5 K/mm3 (1.3-6.7); Neutrophils Percent Auto 68.7 % (45.5-73.1); Platelet Count Result 259 k/mm3 (150-375); Red Blood Count 3.83 M/mm3 (4.6-6.20); Red Cell Distribution Width 13.2 % (11.5-14.5)
[2022-05-17 05:13] LABS: Alanine Aminotransferase 51 U/L (6-50); Albumin Level 2.6 g/dL (3.5-5.1); Alkaline Phosphatase 103 U/L (38-126); Anion Gap 0 mmol/L (8-16); Aspartate Amino Transferase 38 U/L (17-59); Bilirubin,Total 0.5 mg/dL (0.2-1.3); Blood Urea Nitrogen 8 mg/dL (9-20); Calcium 7.6 mg/dL (8.4-10.2); Carbon Dioxide 39 mmol/L (22-30); Chloride 88 mmol/L (98-107); Estimated CRCL calculation 108 ml/min; Estimated Glomerular Filt Rate > 60; Glucose 108 mg/dL (65-110); Magnesium 1.6 mg/dL (1.6-2.3); Potassium 3.6 mmol/L (3.4-5.0); Sodium 127 mmol/L (137-145)
[2022-05-17] MEDS: METOPROLOL TARTRATE 25 MG TABLET PO ×2 (05:54→17:34)
[2022-05-17] MEDS: guaiFENesin 600 MG/DEXTROMETHORPHAN 30 MG SR TAB 12 HR 1 TAB PO ×2 (09:41→20:41)
[2022-05-17] MEDS: FOLIC ACID 1 MG TABLET PO (09:44)
[2022-05-17] MEDS: ATORVASTATIN 10 MG TABLET PO (09:44)
[2022-05-17] MEDS: MULTIVITAMINS THERAPEUTIC TAB (*BKC) 1 TABLET PO (09:44)
--- NOTE | 2022-05-17 12:25 | WPDANESPN ---
Anes - Prog Note Post-Op Date/Time: 05/17/22 12:25 Vital Signs: Last Vital Signs Temp 36.6 C 05/17/22 11:51 Pulse 93 05/17/22 11:51 Resp 24 H 05/17/22 11:51 BP 120/82 05/17/22 11:51 Pulse Ox 97 05/17/22 11:52 O2 Del Method High Flow Therapy with Nasal Cannula 05/17/22 09:20 O2 Flow Rate 35 05/17/22 09:20 FiO2 45 05/17/22 09:20 Pain Score (VAS): 0 I/O: Intake & Output 05/16/22 05/17/22 05/17/22 23:59 07:59 15:59 Intake Total 800 Output Total 1000 450 Balance -200 -450 Laboratory Tests 05/17/22 04:38 05/17/22 04:38 05/17/22 05/17/22 05/17/22 00:38 04:38 04:38 WBC 8.0 RBC 3.83 L Hgb 12.0 L Hct 36.3 L MCV 94.8 MCH 31.3 MCHC 33.1 RDW 13.2 Plt Count 259 MPV 10.1 Immature Gran % (Auto) 1.0 H Neut % (Auto) 68.7 Lymph % (Auto) 10.5 L Humphreys % (Auto) 17.7 H Eos % (Auto) 1.5 Baso % (Auto) 0.6 Lymph # (Auto) 0.84 L Humphreys # (Auto) 1.4 H Eos # (Auto) 0.1 Baso # (Auto) 0.1 Abs Immat Gran (auto) 0.08 H Absolute Neuts (auto) 5.5 Absolute Nucleated RBC 0.0 Nucleated RBC % 0.0 Sodium 127 L Potassium 3.6 Chloride 88 L Carbon Dioxide 39 H Anion Gap 0 L BUN 8 L Creatinine 0.60 L Estim Creat Clear Calc 108 Estimated GFR > 60 Glucose 108 Calcium 7.6 L Magnesium 1.6 Total Bilirubin 0.5 AST 38 ALT 51 H Alkaline Phosphatase 103 Total Protein 6.0 L Albumin 2.6 L Vancomycin Trough 18.8 Patient Feedback: Patient satisfied with anesthetic care.
--- NOTE | 2022-05-17 12:54 | PM.PNPUL ---
Progress Note: A&P Assessment and Plan (1) Acute exacerbation of chronic obstructive airways disease: Code(s): J44.1 - Chronic obstructive pulmonary disease with (acute) exacerbation Status: Acute (2) CAP (community acquired pneumonia): Code(s): J18.9 - Pneumonia, unspecified organism Status: Acute Assessment and Plan: This 71-year-old man with very severe COPD chronic hypoxemic respiratory failure on supplemental oxygen was hospitalized with acute on chronic respiratory failure related to community-acquired pneumonia. Chest imaging studies have shown extensive infiltrate in right lower lobe due to streptococcal pneumonia. clinical status has improved with antibiotics. X-ray done 2 days ago showed only partial clearing of right lung extensive infiltrate, which explains need for high FiO2 [facility] showed no evidence of aortic valve vegetations. Patient completed treatment for strep pneumonia. he is still on high FiO2 are related to his advanced COPD and extensive pneumonia. patient should be considered for transfer to care home facility if he still requiring high FiO2 to maintain adequate oxygen saturation. Patient should continue with his maintenance bronchodilators as well as his short-acting bronchodilators for COPD. He will need follow-up to document clearing of right pneumonia with a new chest x-ray in approximately 5-6 weeks. titrate oxygen to lower flow if tolerated. Will sign off, please call with any questions. (3) Emphysema of lung: Code(s): J43.9 - Emphysema, unspecified Status: Acute (4) COPD, very severe: Code(s): J44.9 - Chronic obstructive pulmonary disease, unspecified Status: Acute (5) Former smoker: Code(s): Z87.891 - Personal history of nicotine dependence Status: Acute (6) Hypoxemia: Code(s): R09.02 - Hypoxemia Status: Acute (7) Atrial fibrillation with RVR: Code(s): I48.91 - Unspecified atrial fibrillation Status: Acute Subjective Date/time seen: 05/17/22 12:54 patient has no new respiratory symptoms. Underwent [facility] yesterday. No evidence of infective endocarditis. He is still on high-flow nasal cannula. Review of Systems Review of Systems: 12 point review of systems was assessed and was negative except as noted in the HPI Exam Narrative: GENERAL APPEARANCE: Well developed, well nourished, alert and cooperative, and appears to be in Mild respiratory distress while in bed, and breathing supplemental oxygen via HF nasal cannula SKIN: Inspection of the skin reveals no rashes, ulcerations or petechiae. HEENT: Sclerae anicteric and conjunctivae pink and moist. Extraocular movements were intact and pupils were equal, round. NECK: Supple. There was no thyroid enlargement, and no tenderness, or masses were felt. CHEST: increased AP diameter and normal contour without any kyphoscoliosis. LUNGS: Auscultation of the lungs diffuse crackles right lung posteriorly, distant breath sounds left lung no wheezing CARDIAC: There was irregular rate and rhythm; 2/6 systolic ejection murmur at the apex ABDOMEN: Soft and nontender with normal bowel sounds. There was no organomegaly. LYMPH NODES: No lymphadenopathy was appreciated in the neck. EXTREMITIES: No cyanosis, clubbing or edema. NEUROLOGIC: Alert and oriented x 3. Normal affect. Objective Data Vital Signs Vital Signs: Vital Signs - 24 hr 05/16/22 14:25 05/16/22 15:00 05/16/22 15:15 Temperature Pulse Rate 93 87 86 Respiratory Rate 16 14 17 Blood Pressure 147/89 H 115/70 125/73 Pulse Oximetry 95 92 92 Oxygen Delivery High Flow Nasal Cannula High Flow Nasal Cannula High Flow Nasal Cannula Oxygen Flow Rate 6 6 6 Fraction of Inspired Oxygen 05/16/22 14:30 05/16/22 14:35 05/16/22 14:40 Temperature Pulse Rate 102 H 83 86 Respiratory Rate 20 17 18 Blood Pressure 138/86 121/75 121/73 Pulse Oximetry 87 L 100 97 Oxygen Delivery High Flow N
[2022-05-17] MEDS: ACETAMINOPHEN 325 MG TABLET 650 MG PO ×2 (14:55→20:41)
[2022-05-17] MEDS: COLCHICINE 0.6 MG TABLET 1.2 MG PO (15:21)
--- NOTE | 2022-05-17 17:31 | PM.IMPN ---
Progress Note: A&P Assessment and Plan (1) CAP (community acquired pneumonia): Code(s): J18.9 - Pneumonia, unspecified organism Status: Acute Assessment and Plan: CTA chest with right lower, right middle and right upper lobe -Cefepime 2g q8h, started 05/04/22 -Azithromycin 5 day course has been completed This is from streptococcal pneumonia. Will be able to change to ceftriaxone once a day at discharge (2) Atrial fibrillation with RVR: Code(s): I48.91 - Unspecified atrial fibrillation Status: Acute Assessment and Plan: Cont cardizem 30 mg Q6h, metoprolol 25 mg Q12h, monitor, decreased from home dose, stable (3) Acute exacerbation of chronic obstructive airways disease: Code(s): J44.1 - Chronic obstructive pulmonary disease with (acute) exacerbation Status: Acute Assessment and Plan: 05/09: Weaning steroids, on prednisone 20 mg daily, will d/c today, cont nebs with albuterol/ipratropium 05/10: Hypercapnia noted, would recommend BiPAP overnight 05/11: Tolerated BIPAP overnight, weaned to 35L hi kartik, appreciate pulm c/s, hypercapnia improved on BMP this am 05/12: Unable to tolerate BiPAP, will discuss options with pulmonary 05/13: Stable off BiPAP 05/16 overnight oxygen level dropped down will get apnea link at night to assess oxygen needs at night (4) Hypertension: Code(s): I10 - Essential (primary) hypertension Status: Acute Assessment and Plan: Atenolol and amlodipine have been discontinued, patient was started on metoprolol 05/11: Metoprolol decreased from 25 mg Q6h to Q12h, cardizem decreased from 60 mg Q6h to 30 mg Q6h 05/12: BP stable on lowered doses 05/13: Stable (5) Hyperlipidemia: Code(s): E78.5 - Hyperlipidemia, unspecified Status: Acute Assessment and Plan: Takes simvastatin 20 mg daily. Continue. (6) History of DVT (deep vein thrombosis): Code(s): Z86.718 - Personal history of other venous thrombosis and embolism Status: Acute Assessment and Plan: 05/09: Cont xarelto for h/o AAA with thrombus 05/11: Check AAA US to evaluate 05/12: Dilated proximal abdominal aorta up to 3.7 cm, no thrombus noted on ultrasound (7) Alcohol related disorder: Code(s): F10.99 - Alcohol use, unspecified with unspecified alcohol-induced disorder Status: Acute Assessment and Plan: Monitor. No withdrawal noted (8) Abnormal liver enzymes: Code(s): R74.8 - Abnormal levels of other serum enzymes Status: Acute Assessment and Plan: resolved, likely 2/2 hypoperfusion previously (9) Bacteremia: Code(s): R78.81 - Bacteremia Status: Acute Assessment and Plan: -2/2 bld cx 05/03 positive for s. pneumo, cefepime started 05/04/22, possible vegetation on valve with echocardiogram, continue IV antibiotics, will likely need treated for endocarditis, cardiology consult for NABIL. Nabil negative for any vegetation -Repeat blood cultures from the did come back showing Staphylococcus epidermis, multi-drug resistant, MRSA swab negative, suspected contaminant, d/c vanc -Repeat blood cultures from the [facility] Repeat TTE done did not visualize aortic valve well enough to assess if possible vegetation remained He completed antibiotic course during the hospital stay antibiotic has been stopped (10) Insomnia: Code(s): G47.00 - Insomnia, unspecified Status: Acute Assessment and Plan: Cont ambien 2.5 mg nightly while in hospital (11) Hyponatremia: Code(s): E87.1 - Hypo-osmolality and hyponatremia Status: Acute Assessment and Plan: Mild continue to monitor Plan Right ankle pain: Suspect gout will check uric acid. Will give colchicine DVT prophylaxis with Xarelto GI prophylaxis not indicated Code status full code Disposition: PT OT to see. Prefers to go to rehabilitation Subjective Date/time seen: 05/17/22 17:3
[2022-05-17] MEDS: RIVAROXABAN 20 MG TABLET PO (17:34)
[2022-05-17 18:07] LABS: Uric Acid 2.1 mg/dL (3.5-8.5)
[2022-05-17] MEDS: ZOLPIDEM TARTRATE (*CRX) 2.5 MG TABLET PO (20:42)
[2022-05-18] VITALS (15 sets, daily range): BP systolic 103–125; BP diastolic 67–78; PULSE 73–100; RESP 18–24; TEMP 36.1–36.5; O2SAT 90–97
[2022-05-18 04:59] LABS: Basophils Absolute Auto 0.1 K/mm3 (0.0-0.1); Basophils Percent Auto 0.8 % (0.2-1.2); Eosinophils Absolute Auto 0.1 K/mm3 (0-0.3); Eosinophils Percent Auto 1.6 % (0-4.4); Hematocrit 39.7 % (42.0-52.0); Hemoglobin 12.9 g/dL (14.0-18.0); Immature Granulocyte Absolute 0.08 K/mm3 (0.00-0.031); Immature Granulocyte Percent A 1.1 % (0-0.5); Lymphocytes Percent Auto 10.7 % (18.3-44.2); Mean Corpuscular HGB Conc 32.5 g/dl (32-36); Mean Corpuscular Hemoglobin 31.5 pg (26-34); Mean Corpuscular Volume 97.1 fl (80-100); Mean Platelet Volume 10.4 fl (7.4-10.4); Monocytes Absolute Auto 1.1 K/mm3 (0.1-0.6); Monocytes Percent Auto 14.9 % (2.6-8.5); Neutrophils Absolute Auto 5.3 K/mm3 (1.3-6.7); Neutrophils Percent Auto 70.9 % (45.5-73.1); Platelet Count Result 287 k/mm3 (150-375); Red Blood Count 4.09 M/mm3 (4.6-6.20); Red Cell Distribution Width 13.1 % (11.5-14.5); White Blood Count 7.5 K/mm3 (4.5-10.0)
[2022-05-18 05:15] LABS: Alanine Aminotransferase 54 U/L (6-50); Albumin Level 2.9 g/dL (3.5-5.1); Alkaline Phosphatase 123 U/L (38-126); Aspartate Amino Transferase 42 U/L (17-59); Bilirubin,Total 0.4 mg/dL (0.2-1.3); Blood Urea Nitrogen 9 mg/dL (9-20); Carbon Dioxide > 40 mmol/L (22-30); Chloride 89 mmol/L (98-107); Estimated CRCL calculation 96 ml/min; Estimated Glomerular Filt Rate > 60; Glucose 103 mg/dL (65-110); Magnesium 1.7 mg/dL (1.6-2.3); Potassium 3.5 mmol/L (3.4-5.0); Sodium 130 mmol/L (137-145)
[2022-05-18] MEDS: METOPROLOL TARTRATE 25 MG TABLET PO ×2 (05:15→17:43)
[2022-05-18] MEDS: ATORVASTATIN 10 MG TABLET PO (08:10)
[2022-05-18] MEDS: COLCHICINE 0.6 MG TABLET PO (08:10)
[2022-05-18] MEDS: guaiFENesin 600 MG/DEXTROMETHORPHAN 30 MG SR TAB 12 HR 1 TAB PO ×2 (08:10→17:42)
[2022-05-18] MEDS: MULTIVITAMINS THERAPEUTIC TAB (*BKC) 1 TABLET PO (08:11)
[2022-05-18] MEDS: FOLIC ACID 1 MG TABLET PO (08:11)
[2022-05-18] MEDS: ACETAMINOPHEN 325 MG TABLET 650 MG PO ×2 (08:13→17:40)
[2022-05-18] MEDS: MENTHOL 10% / METHYL SALICYLATE 15% 57 GM TUBE 1 APPLIC TOPICAL (08:16)
--- NOTE | 2022-05-18 09:10 | PCNWS ---
Weekly nutritional screen. Patient is tolerating current heart healthy diet with adequate intake at 100% of meals. No weight loss reported. No nutritional needs at this time.
[2022-05-18] MEDS: IBUPROFEN 400 MG TABLET 800 MG PO (12:20)
[2022-05-18] MEDS: predniSONE 20 MG TABLET 40 MG PO (12:21)
--- NOTE | 2022-05-18 15:56 | PM.DS ---
DS: Admitting Diagnosis Discharge Date 05/18/2022 Admitting Diagnosis pneumonia DS: Discharge Diagnosis Discharge Diagnosis (1) CAP (community acquired pneumonia): Code(s): J18.9 - Pneumonia, unspecified organism Status: Acute (2) Atrial fibrillation with RVR: Code(s): I48.91 - Unspecified atrial fibrillation Status: Acute (3) Acute exacerbation of chronic obstructive airways disease: Code(s): J44.1 - Chronic obstructive pulmonary disease with (acute) exacerbation Status: Acute (4) Hypertension: Code(s): I10 - Essential (primary) hypertension Status: Acute (5) Hyperlipidemia: Code(s): E78.5 - Hyperlipidemia, unspecified Status: Acute (6) History of DVT (deep vein thrombosis): Code(s): Z86.718 - Personal history of other venous thrombosis and embolism Status: Acute (7) Alcohol related disorder: Code(s): F10.99 - Alcohol use, unspecified with unspecified alcohol-induced disorder Status: Acute (8) Abnormal liver enzymes: Code(s): R74.8 - Abnormal levels of other serum enzymes Status: Acute (9) Bacteremia: Code(s): R78.81 - Bacteremia Status: Acute (10) Insomnia: Code(s): G47.00 - Insomnia, unspecified Status: Acute (11) Hyponatremia: Code(s): E87.1 - Hypo-osmolality and hyponatremia Status: Acute DS: Summary Hospital Course Hospital Course: # community-acquired pneumonia: CTA chest with right lower, right middle and right upper lobe . Patient was started on cefepime and azithromycin. Along with vancomycin. Finished and throw mycin course. Pneumonia from Pneumococcus. finish the course of treatment during the hospital stay # atrial fibrillation with rapid ventricular rate: Cardiology was consulted. Cont cardizem 30 mg Q6h, metoprolol 25 mg Q12h, monitor, decreased from home dose, stable # COPD exacerbation: Was started on steroid. continue with nebulizers. He also required BiPAP which is however later tapered off. # acute hypoxic respiratory failure initially requiring BiPAP which is now been tapered off. Is still request to 4 L of oxygen. Continue to monitor. ApneaLink on 05/17/2022 with hypoxemia S than 88% for 85 minutes on 2 L nasal cannula. Will need 4 L at night # hypertension: He used to be onAtenolol and amlodipine which have been discontinued, patient was started on metoprolol along with Cardizem blood pressure stable on these. # hyperlipidemia: On simvastatin at home due to interaction switched to atorvastatin # history of DVT: On Xarelto # history of AAA with thrombus: Ultrasound showed dilated proximal aorta up to 3.7 cm no thrombus # alcohol related disorder: Monitor no withdrawal noted # abnormal liver enzymes: Resolved likely due to hypoperfusion on admission # bacteremia with Streptococcus pneumoniae 2/2 blood culture on 05/03 started on treatment with cefepime 05/04/2022. TT with possible vegetation on valve on echocardiogram. Nabil was performed which was negative for any vegetation. # insomnia: Cont ambien 2.5 mg nightly # hyponatremia : Mild continue to monitor #Right ankle pain:? Suspect gout uric acid was low. Given colchicine which did not help much. Will give prednisone 5 days course #? DVT prophylaxis with Xarelto Code status full code #Disposition:? PT OT to see.? accepted at [facility] where he is going to go for further rehabilitation Time Spent with Patient Time attestation: Total time spent providing and/or coordinating discharge services: 50 minutes Exam Narrative: General: No acute distress, alert and oriented per baseline HEENT: Atraumatic, normocephalic, mucous membranes moist CV: Irregularly irregular, S1, S2 Lungs: Diminished throughout, no crackles, a few scattered wheezes Abdomen: Soft, nontender, nondistended Extremities: Normal to inspection right foot with restr
[2022-05-18] MEDS: RIVAROXABAN 20 MG TABLET PO (17:44)
[2022-05-18 18:11] LABS: EDCOVIDSCREEN Negative (Negative)
--- NOTE | 2022-05-18 20:46 | PC.NURSE ---
Pt discharged to [facility] facility per EMS on 05/18/22 at 2044. Report called per previous Marino MORALEZ to [facility] at 1840. IV removed intact per previous shift. VSS and Pt denied pain at time of discharge.
--- NOTE | 2022-05-18 22:33 | PC.NURSE ---
Discharge information faxed to [facility] and called facility to verify receipt.
== END 2022-05-18 20:44 | DRG 193 ==
LOC: ANHED 10:55 → ANHIMU 12:57
PROVIDERS: Chiropractor; Family Medicine; Internal Medicine; Internal Medicine Pulmonary Disease; Nurse Practitioner; Student in an Organized Health Care Education/Training Program; Admitting Provider Internal Medicine; Emergency Provider Preventive Medicine Aerospace Medicine; PCP Internal Medicine; Visit Provider Internal Medicine
PROC: B24BZZ4 Ultrasonography of Heart with Aorta, Transesophageal (ICD-10-PCS; CPT 93312; principal; 2022-05-16 14:30)
DX: J18.9 Pneumonia, unspecified organism (principal); J96.01 Acute respiratory failure with hypoxia; E87.1 Hypo-osmolality and hyponatremia; F10.99 Alcohol use, unspecified with unspecified alcohol-induced disorder; Z16.24 Resistance to multiple antibiotics; I48.91 Unspecified atrial fibrillation; E78.5 Hyperlipidemia, unspecified; I10 Essential (primary) hypertension; Z86.718 Personal history of other venous thrombosis and embolism; J13 Pneumonia due to Streptococcus pneumoniae; Z79.01 Long term (current) use of anticoagulants; G47.00 Insomnia, unspecified; M25.571 Pain in right ankle and joints of right foot; J43.9 Emphysema, unspecified; I35.8 Other nonrheumatic aortic valve disorders; I71.20 Thoracic aortic aneurysm, without rupture, unspecified; Z20.822 Contact with and (suspected) exposure to COVID-19; Z99.81 Dependence on supplemental oxygen; Z85.46 Personal history of malignant neoplasm of prostate; Z87.891 Personal history of nicotine dependence; Z79.51 Long term (current) use of inhaled steroids; Z79.899 Other long term (current) drug therapy
CPT/HCPCS: 36415; 36600; 71045; 71275; 73610; 73630; 76705; 76775; 80048; 80053; 80202; 82375; 82533; 82570; 82805; 82948; 83050; 83605; 83735; 84300; 84439; 84443; 84450; 84460; 84480; 84484; 84550; 85025; 85610; 86140; 86705; 86709; 86803; 87040; 87070; 87077; 87081; 87181; 87184; 87186; 87205; 87340; 87426; 87637; 93005; 93312; 93320; 93325; 94002; 94003; 94640; 94660; 94762; 96365; 96367; 97110; 97162; 97165; 97530; 97535; 99285; A9270; C8929; C9803; J0456; J0692; J0696; J1160; J2704; J2920; J3370; J3411; J7030; J7512; Q9957; Q9967

== ENCOUNTER 2022-06-25 08:19 | Outpatient (CLI) | payer MEDICARE, OTHER, SELFPAY ==
--- NOTE | ~2022-06-25 | XR_ITS ---
Clinical Indication: Pneumonia PA and lateral views of the chest: Comparison: 05/12/2022 Findings: Small right pleural effusion is present. Extensive right basilar and right midlung consolid ation are again present. Probable underlying COPD. Left lung clear.. Cardiomediastinal silhouette is within normal limits. Bones and soft tissues are unremarkable. Impression: Small right pleural effusion, new from prior exam. Extensive right basilar and right perihilar consolidation, suspicious for pneumonia. Underlying COPD. Reviewed, dictated and finalized at location M. PALLIATIVE Impression: Small right pleural effusion, new from prior exam. Extensive right basilar and right perihilar consolidation, suspicious for pneum onia. Underlying COPD.
== END 2022-06-25 08:20 | disposition home or self-care (01) ==
LOC: ANHIMG 08:29
PROVIDERS: PCP Family Medicine; Visit Provider Nurse Practitioner Family
DX: J18.9 Pneumonia, unspecified organism (principal); I31.39 Other pericardial effusion (noninflammatory); J44.9 Chronic obstructive pulmonary disease, unspecified
CPT/HCPCS: 71046

== ENCOUNTER 2022-07-11 02:32 | Outpatient (CLI) | payer MEDICARE, OTHER, SELFPAY ==
[2022-07-03 09:35] VITALS: BMI 23.4
--- NOTE | 2022-07-03 09:36 | PC.NURSE ---
Pre Radiology instructions Report to the outpatient vanessa santanabuhler on date _07/11/22 @ 0730____ Procedure Time: _929___ YOU MAY BE MONITORED AT HOSPITAL FOR UP TO 4 HOURS AFTER YOUR PROCEDURE. A visitors will be allowed to accompany the patient into the hospital. ?The visitor will be instructed to remain with patient at all times or leave the building due to restrictions.? We will allow the visitor to come back to the postoperative area when patient is ready.? NO children visitors allowed at this time. You and your visitor will be asked to self-screen and do not enter if you have any COVID symptoms. A mask is OPTIONAL within the hospital. Patients are to have no food or drink 6 hours prior to procedure time (0330 AM) Driving will be restricted after the procedure, you must have a person to drive you home. Labs will be drawn in preop area and once reviewed, you will be taken to radiology area for procedure. When the procedure is completed, you will be taken to outpatient where you will be monitored for several hours. You may have one visitor in this area. Other than holding anti-coagulants, patient may take other medication(s) as scheduled. Prior to your appointment date patients are instructed to hold anti-coagulants after discussing with ordering provider to stop. If unable to discontinue anti-coagulants please notify radiologist. ? No aspirin or warfarin (Coumadin) for 7 days prior to the procedure. ? No clopidogrel (Plavix), ticagrelor (Brilinta), prasugrel (Effient) or dabigatran (Pradaxa) for 5 days prior to the procedure. ? No rivaroxaban (Xarelto), apixaban (Eliquis), dipyridamole (Aggrenox or Persantine) or cilostazol (Pletal) for 2 days prior to the procedure. Medications to discontinue per physician: __XARELTO 2 DAYS PRIOR TO PROCEDURE Date to take last dose: ____07/08/22 Please leave all valuables, including medications, at home the day of procedure. The hospital will not accept responsibility for valuables. Wear comfortable, loose fitting clothing.? Follow any additional instructions given to you from ordering provider. Telephone instructions given to ___PATIENT and asked if any additional questions and then verbalized understanding. Patient advised to call scheduling provider office or registration scheduling [phone] if any additional questions.
[2022-07-11] VITALS (7 sets, daily range): BP systolic 109–130; BP diastolic 69–89; PULSE 77–86; RESP 16–18; TEMP 36.5; O2SAT 91–100
--- NOTE | ~2022-07-11 | US_ITS ---
EXAMINATION: US thoracentesis DATE: 07/11/2022 09:56 INDICATION: Right pleural effusion TECHNIQUE: The procedure and its risks and benefits were discussed with the patient. Potential risks discussed included bleeding, infection, and pneumothorax. The patient understood the risks and agreed to proceed. The skin was prepped and draped in sterile fashion. 1% lidocaine was used for local anes thesia. Under ultrasound guidance, a 5 Fr catheter with trochar was advanced into the orifice large l oculated components of a complex small right pleural effusion. Only minimal amount of thick dark flori on-colored fluid was able to be aspirated. A second 5 Danish catheter with trochar was advanced into a second more lateral loculated component of the effusion and additional 36 mL of red-colored fluid w as aspirated. The catheter was removed, and a dressing was applied. There were no immediate complicat ions. FINDINGS: Ultrasound images demonstrate a small complex likely exudative right pleural effusion and the cathete r within the fluid. IMPRESSION: 1. Successful ultrasound-guided thoracentesis yielding 36 mL of thick dark maroon-colored fluid. Reviewed, dictated and finalized at location A. ENE WORKER IMPRESSION: 1. Successful ultrasound-guided thoracentesis yielding 36 mL of thick dark mar oon-colored fluid.
--- NOTE | ~2022-07-11 | XR_ITS ---
EXAMINATION: [id number] DATE: 07/11/2022 09:40 INDICATION: Status post right thoracentesis TECHNIQUE: frontal view of the chest was obtained. COMPARISON: Chest radiograph dated 06/25/2022 FINDINGS: There is been some improvement in airspace opacities in the right mid to lower lung zone along with a decrease in size of a small right pleural effusion. Thin curvilinear opacities in the left lower mya g zone consistent with atelectasis/scarring along side the margins of likely bullous changes of emphy sema. Additional mild bullous changes seen at the medial right apex. No pneumothorax or left-sided pl eural effusion. Heart size is normal with slight rightward shift relative to radiographs dated 2021 and 11/07/2018 suggesting some of the opacities in the right lower lung zone correspond to atelec tasis. IMPRESSION: 1. Improvement in airspace opacities in the right mid and lower lung zones likely combination of atel ectasis and pneumonia. 2. Decreased small right pleural effusion. 3. Emphysema. Reviewed, dictated and finalized at location A. NG COILER IMPRESSION: 1. Improvement in airspace opacities in the right mid and lower lung zones like ly combination of atelectasis and pneumonia. 2. Decreased small right pleural effusion. 3. Emphysema.
[2022-07-11 08:09] LABS: Mean Platelet Volume 10.1 fl (7.4-10.4); Platelet Count Result 246 k/mm3 (150-375)
[2022-07-11 08:23] LABS: Glucose Point of Care 108 mg/dl (65-105)
[2022-07-11 08:26] LABS: INR 1.1
[2022-07-11 11:13] LABS: Appearance Pleural Fluid Turbid (Clear); Color Pleural Fluid Red (Colorless); Pleural fluid source Pleural fluid
[2022-07-11 11:14] LABS: Lymphocytes Pleural Fluid 93 %; Macrophages Pleural Fluid 4 %; Monocytes Pleural Fluid 3 %
--- NOTE | 2022-07-11 11:35 | SUR.PHASEII ---
this nurse called dr correa and he said pt is good to be discharged. pt meets discharge criteria.
[2022-07-15 20:01] LABS: Total Protein Pleural Fluid 3.2 g/dL
[2022-07-17 18:57] LABS: Amylase, Pleural Fluid 27 U/L
== END 2022-07-11 11:48 | disposition home or self-care (01) ==
PROVIDERS: PCP Internal Medicine; Referring Provider Nurse Practitioner Family; Visit Provider Radiology Diagnostic Radiology
DX: J90 Pleural effusion, not elsewhere classified (principal); J43.9 Emphysema, unspecified
CPT/HCPCS: 32555; 36415; 82150; 82948; 83615; 83986; 84157; 85049; 85610; 87015; 87102; 87116; 87206; 89051; C1729

== ENCOUNTER 2022-07-18 14:14 | Outpatient (CLI) | payer MEDICARE, OTHER, SELFPAY ==
--- NOTE | ~2022-07-18 | CT_ITS ---
CT Scan of the Chest without Contrast: Clinical Indication: Pleural effusion Technique: Contiguous sections were acquired throughout the chest without intravenous contrast. Dose reduction technique was used on this scan by utilizing automated exposure control and iterative recon struction technique. The dose-length product (DLP) was 183.46 mGy-cm. COMPARISON: 05/03/2022 Findings: There is no evidence of any significant mediastinal, hilar or axillary lymphadenopathy. There are ath erosclerotic calcifications of the aorta. Minimal coronary artery calcifications are present. No pericardial effusion. No left pleural effusion. There is a somewhat bilobed pleural-based mass or fluid collection at the right lung base, mildly hyp erdense relative to simple fluid. This is best seen on axial images 77-108, and on sagittal images 18 -47). Severe pulmonary emphysema noted, with probable scarring in the right upper lobe. Images through the upper abdomen reveal no abnormalities. Impression: Somewhat bilobed, mildly hyperdense pleural-based mass or fluid collections right lung base. Given de nsity, diagnostic considerations could include hemothorax versus pleural-based masses. Correlate clin ically. Consider aspiration/tissue sampling, or possibly pre and postcontrast CT to assess for enhanc ing soft tissue. Underlying severe pulmonary emphysema. Reviewed, dictated and finalized at location . K TESTER Impression: Somewhat bilobed, mildly hyperdense pleural-based mass or fluid collections rig ht lung base. Given density, diagnostic considerations could include hemothorax versus pleural-based masses. Correlate clinically. Consider aspiration/tissue sampling, or possibly pre and postcontrast CT to assess for enhancing soft tiss ue. Underlying severe pulmonary emphysema.
== END 2022-07-18 14:15 | disposition home or self-care (01) ==
PROVIDERS: PCP Internal Medicine; Visit Provider Nurse Practitioner Family
DX: J90 Pleural effusion, not elsewhere classified (principal); J43.9 Emphysema, unspecified
CPT/HCPCS: 71250

== ENCOUNTER 2022-08-03 01:53 | Outpatient (CLI) | payer MEDICARE, OTHER, SELFPAY ==
--- NOTE | 2022-07-27 11:31 | PC.NURSE ---
Pre Radiology instructions Report to the IMAGING DEPT PER RADIOLOGY AT 1000 ON 08/03/22 Procedure Time: _1030___ YOU MAY BE MONITORED AT HOSPITAL FOR UP TO 4 HOURS AFTER YOUR PROCEDURE. A visitors will be allowed to accompany the patient into the hospital. ?The visitor will be instructed to remain with patient at all times or leave the building due to restrictions.? We will allow the visitor to come back to the postoperative area when patient is ready.? NO children visitors allowed at this time. You and your visitor will be asked to self-screen and do not enter if you have any COVID symptoms. A mask is OPTIONAL within the hospital. Patients are to have no food or drink 6 hours prior to procedure time Driving will be restricted after the procedure, you must have a person to drive you home. NO LABS NEEDED PER RADIOLOGY Labs will be drawn in preop area and once reviewed, you will be taken to radiology area for procedure. When the procedure is completed, you will be taken to outpatient where you will be monitored for several hours. You may have one visitor in this area. Other than holding anti-coagulants, patient may take other medication(s) as scheduled. Prior to your appointment date patients are instructed to hold anti-coagulants after discussing with ordering provider to stop. If unable to discontinue anti-coagulants please notify radiologist. ? No aspirin or warfarin (Coumadin) for 7 days prior to the procedure. ? No clopidogrel (Plavix), ticagrelor (Brilinta), prasugrel (Effient) or dabigatran (Pradaxa) for 5 days prior to the procedure. ? No rivaroxaban (Xarelto), apixaban (Eliquis), dipyridamole (Aggrenox or Persantine) or cilostazol (Pletal) for 2 days prior to the procedure. Medications to discontinue per physician: __XARELTO 2 DAYS PRE OP Date to take last dose: ___07/31/22 Please leave all valuables, including medications, at home the day of procedure. The hospital will not accept responsibility for valuables. Wear comfortable, loose fitting clothing.? Follow any additional instructions given to you from ordering provider. Telephone instructions given to _PATIENT and asked if any additional questions and then verbalized understanding. Patient advised to call scheduling provider office or registration scheduling [phone] if any additional questions.
[2022-07-27 11:36] VITALS: BMI 22.9
--- NOTE | ~2022-08-03 | XR_ITS ---
EXAMINATION: [id number] DATE: 08/03/2022 11:22 INDICATION: Right pleural effusion status post thoracentesis. TECHNIQUE: A single frontal view of the chest was obtained. COMPARISON: Chest single view 07/11/2022, chest CT 07/18/2022, 05/03/2022 FINDINGS: There are lucencies in the lungs, consistent with emphysema. There is mild scarring at righ t lung apex. There are airspace opacities in right mid and lower lung zones. There is a small right p leural effusion. No pneumothorax. The heart size is normal. IMPRESSION: 1. Airspace opacities in right mid and lower lung zones with interval improvement, consistent with pn eumonia. 2. Small right pleural effusion. 3. Emphysema. Reviewed, dictated and finalized at location A. IMPRESSION: 1. Airspace opacities in right mid and lower lung zones with interval improveme nt, consistent with pneumonia. 2. Small right pleural effusion. 3. Emphysema.
--- NOTE | ~2022-08-03 | US_ITS ---
EXAMINATION: US thoracentesis DATE: 08/03/2022 11:38 INDICATION: pleural effusion TECHNIQUE: The procedure and its risks, benefits, and alternatives were discussed with the patient. P otential risks discussed included bleeding, infection, and pneumothorax. The patient understood the r isks and agreed to proceed. The skin was prepped and draped in sterile fashion. 1% lidocaine was used for local anesthesia. Under ultrasound guidance, a 5 Fr catheter with trochar was advanced into the right pleural effusion. Fluid was aspirated. The catheter was removed, and a dressing was applied. Th ere were no immediate complications. FINDINGS: Ultrasound images demonstrate a right pleural effusion and the catheter within the fluid. IMPRESSION: 1. Successful ultrasound-guided thoracentesis yielding 4 mL of red fluid. Reviewed, dictated and finalized at location A.
[2022-08-03 11:25] VITALS: BP 128/68; PULSE 69; RESP 18; O2SAT 90
[2022-08-03 11:46] VITALS: BP 121/87; PULSE 79; RESP 16; O2SAT 100
[2022-08-03 12:01] VITALS: BP 107/78; PULSE 73; RESP 16; O2SAT 100
[2022-08-03 12:15] VITALS: BP 127/75; PULSE 70; RESP 17; O2SAT 100
[2022-08-03 12:45] VITALS: BP 133/86; PULSE 69; RESP 17; O2SAT 100
[2022-08-03 13:10] VITALS: BP 143/82; PULSE 70; RESP 17; O2SAT 100
--- NOTE | 2022-08-03 21:08 | PCRCNOTE ---
Pleural fluid speciman was not acceptable to be ran.
== END 2022-08-03 13:25 | disposition home or self-care (01) ==
PROVIDERS: PCP Internal Medicine; Referring Provider Nurse Practitioner Family; Visit Provider Radiology Diagnostic Radiology
DX: J90 Pleural effusion, not elsewhere classified (principal); J43.9 Emphysema, unspecified
CPT/HCPCS: 32555; 82150; 82945; 83615; 84157; 87015; 87116; 87206

== ENCOUNTER 2022-08-08 09:41 | Outpatient (CLI) | payer MEDICARE, OTHER, SELFPAY ==
--- NOTE | 2022-08-08 13:43 | WPDSIXMINUTE ---
Six Minute Walk Procedure Procedure Performed Pulmonary Stress Test (6 min walk) Six Minute Walk Six Minute Walk: This is a 6 minute walk test. The test was performed and interpreted in accordance with the 2014 ERS/ATS task force guidelines. This test was performed with a walking aid on 3 L nasal cannula Findings: The patient's resting 3 L NC oxygen saturation measured by pulse oximetry was 94% and heart rate was 70 bpm. Patient ambulated for 182 meters and oxygen saturation remained 81 to 99%. Heart rate at the end of the study was 80 bpm. The patient demonstrated significant desaturations on 3 L nasal cannula and should have a formal home O2 assessment to determine oxygen needs. There are no prior studies for comparison.
== END 2022-08-08 09:42 | disposition home or self-care (01) ==
LOC: ANHPFT 09:43
PROVIDERS: PCP Internal Medicine; Visit Provider Nurse Practitioner Family
DX: R09.02 Hypoxemia (principal)
CPT/HCPCS: 94618

== ENCOUNTER 2022-08-29 08:02 | Outpatient (CLI) | payer MEDICARE, OTHER, SELFPAY ==
[2022-08-29 08:05] VITALS: PULSE 76; O2SAT 93
[2022-08-29 08:10] VITALS: PULSE 96; O2SAT 85
[2022-08-29 08:15] VITALS: PULSE 97; O2SAT 86
[2022-08-29 08:20] VITALS: PULSE 97; O2SAT 88
[2022-08-29 08:25] VITALS: PULSE 96; O2SAT 90
[2022-08-29 08:35] VITALS: PULSE 78; O2SAT 92
--- NOTE | 2022-08-29 08:38 | HOMEO2EVAL ---
Evaluation was performed at [facility] Home Oxygen Evaluation RC: Home Oxygen (O2) Evaluation Start: 08/29/22 08:32 Freq: Status: Active Protocol: RPE Activity Type Activity Date Activity User E-sign Co-sign Detail Recorded Client Recorded Date Recorded By Document 08/29/22 08:05 [email or web address] [email or web address] 08/29/22 08:37 DJO Document 08/29/22 08:10 [email or web address] [email or web address] 08/29/22 08:37 DJO Document 08/29/22 08:15 [email or web address] [email or web address] 08/29/22 08:37 DJO Document 08/29/22 08:20 [email or web address] [email or web address] 08/29/22 08:37 DJO Document 08/29/22 08:25 [email or web address] [email or web address] 08/29/22 08:37 DJO Document 08/29/22 08:35 [email or web address] [email or web address] 08/29/22 08:37 DJO 08/29/22 08/29/22 08/29/22 08:05 08:10 08:15 Home O2 Evaluation [Oxygen] -Test Phase Resting Exercise Exercise -Oxygen Delivery Room Air Room Air Nasal Cannula -Oxygen Flow Rate (L/min) 1 [Pulse Oximetry] -Pulse Oximetry (90-100 %) 93 85 L 86 L [Pulse Rate] -Pulse Rate (60-100 beats/min) 76 96 97 [Evaluation] -Activity Tolerance [Exercise] -Ambulation Distance (feet) -Ambulation Distance (meters) [Charges] -Treatment Charges O2 Evaluation - Outpatient 08/29/22 08/29/22 08/29/22 08:20 08:25 08:35 Home O2 Evaluation [Oxygen] -Test Phase Exercise Exercise Resting -Oxygen Delivery Nasal Cannula Nasal Cannula Room Air -Oxygen Flow Rate (L/min) 2 3 [Pulse Oximetry] -Pulse Oximetry (90-100 %) 88 L 90 92 [Pulse Rate] -Pulse Rate (60-100 beats/min) 97 96 78 [Evaluation] -Activity Tolerance Good [Exercise] -Ambulation Distance (feet) 500 -Ambulation Distance (meters) 152.39 [Charges] -Treatment Charges
== END 2022-08-29 08:03 | disposition home or self-care (01) ==
LOC: ANHPFT 08:04
PROVIDERS: PCP Internal Medicine; Visit Provider Nurse Practitioner Family
DX: R09.02 Hypoxemia (principal)
CPT/HCPCS: 94618

== ENCOUNTER 2022-09-07 08:58 | Outpatient (CLI) | payer MEDICARE, OTHER, SELFPAY ==
--- NOTE | ~2022-09-07 | XR_ITS ---
XR chest 2V 09/07/2022 09:14 Indication: Pleural effusion. Pneumonia. COPD. Procedure: 2 view chest Comparison: Comparison to multiple prior studies sequentially, with oldest reviewed study dated 04/20. Findings: There is emphysema. There is right basilar airspace disease, consistent with pneumonia. The re is an extrapleural smoothly marginated mass posterior aspect of the thorax on the lateral view. No acute osseous abnormality. Small right pleural effusion. Impression: 1: Smoothly marginated mass posteriorly in the right lower thorax. Cannot exclude malignancy. Recomme nd correlation with pet/CT scan. 2: Right basilar airspace disease, compatible with pneumonia. 3: Small right pleural effusion. 4: Emphysema. Reviewed, dictated and finalized at location A. Impression: 1: Smoothly marginated mass posteriorly in the right lower thorax. Cannot exclu de malignancy. Recommend correlation with pet/CT scan. 2: Right basilar airspace disease, compatible with pneumonia. 3: Small right pleural effusion. 4: Emphysema.
== END 2022-09-07 08:59 | disposition home or self-care (01) ==
PROVIDERS: PCP Internal Medicine; Visit Provider Nurse Practitioner Family
DX: J90 Pleural effusion, not elsewhere classified (principal); J18.9 Pneumonia, unspecified organism; J43.9 Emphysema, unspecified
CPT/HCPCS: 71046

== ENCOUNTER 2022-09-20 07:48 | Outpatient (CLI) | payer MEDICARE, OTHER, SELFPAY ==
--- NOTE | ~2022-09-20 | PE_ITS ---
EXAMINATION: PET skull to mid thigh DATE: 09/20/2022 09:56 INDICATION: Nonspecific abnormal findings of lung field. TECHNIQUE: Blood glucose level was 112 mg/dL. 9.697 mCi of 18-fluorodeoxyglucose (18-FDG) was adminis tered i.v. Low dose computed tomography (CT) images were acquired from the base of the brain to the p roximal thighs for attenuation correction and anatomic localization. Positron emission tomography (PE T) images were acquired in the same distribution beginning 52 minutes after injection. Images includi ng fused PET/CT images were reconstructed in axial, coronal, and sagittal planes. Automated exposure control technique was employed. The dose-length product was 551.25mGy-cm. COMPARISON: Chest CT dated 07/18/2022 FINDINGS: Head/neck: There is symmetric increased activity in the oral cavity, palatine tonsils, submandibular glands, lar yngeal muscles and ocular muscles without CT correlate, likely physiologic. No pathologically enlarge d cervical lymphadenopathy or suspicious foci of increased FDG uptake in the visualized head or neck. Chest: Moderate to severe emphysema. Persistent mild dependent atelectasis in the right upper lobe. Interval decrease in size of a small loculated complex right pleural effusion which yielded bloody fluid on a n interval diagnostic thoracentesis. This includes a 4.1 x 2.6 similar loculated component posterior to the right lower lobe with mild curvilinear increased FDG uptake along the periphery of the collect ion with maximal SUV of 4.4. Decrease in size of a previously 4.6 x 3.8 cm pleural-based mass along t he posterior right diaphragm which currently measures 2.3 x 1.8 cm images without significant increas ed uptake. The interval decrease in size suggests this represents an additional loculated component t o the effusion. Heart size is normal. No pericardial effusion. Thoracic aorta is normal in caliber. N o pathologically enlarged or FDG avid thoracic lymphadenopathy. Abdomen/pelvis/proximal thighs: Physiologic renal accumulation and excretion of FDG activity in the kidneys, bladder and along portio ns of ureters. Normal degree and heterogenous pattern of increased uptake throughout the liver withou t radiologic correlate or dominant FDG avid lesion. The gallbladder, pancreas, spleen and bilateral a drenal glands are normal. Mild uptake scattered throughout the bowels without radiologic correlate, a lso likely physiologic. There multiple colonic diverticula without adjacent inflammatory change to lynn ggest diverticulitis. Normal appendix. No other abnormal foci of increased FDG uptake or pathologica lly enlarged lymphadenopathy in the abdomen, pelvis or proximal thighs. Musculoskeletal: Chronic T11 compression fracture with 20% anterior vertebral body height loss. A few small sclerotic bone islands without FDG uptake including at L4, the left acetabulum and right femoral head. Mild lum bar levocurvature. No other suspicious lytic, blastic or FDG avid bone lesions. IMPRESSION: 1. Interval decrease in size of an exudative right pleural effusion including of a prior masslike ple ural-based soft tissue density along the right hemidiaphragm which is without significant FDG activit y. This likely represents a loculated component to the effusion which appeared hemorrhagic on prior d iagnostic thoracentesis likely accounting for the increased density. There is mild increased FDG upta ke along the margins of an additional small loculated component of the effusion without a significant nodular soft tissue component and increased FDG activity is likely inflammatory in etiology. Recomme nd continued radiographic follow-up with chest CT in 3 months. Reviewed, dictated and finalized at location L.
[2022-09-20 08:08] LABS: Glucose Point of Care 112 mg/dl (65-105)
== END 2022-09-20 07:49 | disposition home or self-care (01) ==
PROVIDERS: PCP Internal Medicine; Visit Provider Nurse Practitioner Family
DX: R91.8 Other nonspecific abnormal finding of lung field (principal)
CPT/HCPCS: 78815; A9552

== ENCOUNTER 2022-12-18 08:24 | Outpatient (CLI) | payer MEDICARE, OTHER, SELFPAY ==
--- NOTE | ~2022-12-18 | CT_ITS ---
CT Scan of the Chest without Contrast: Clinical Indication: Pleural effusion Technique: Contiguous sections were acquired throughout the chest without intravenous contrast. Dose reduction technique was used on this scan by utilizing automated exposure control and iterative recon struction technique. The dose-length product (DLP) was 288.19 mGy-cm. COMPARISON: 07/18/2022 Findings: There is no evidence of any significant mediastinal, hilar or axillary lymphadenopathy. The mediastin al soft tissues appear normal. There is no evidence of pleural or pericardial effusion. There is severe emphysema. There is a 1.8 cm pleural-based nodular opacity at the right lower lobe (a xial image 87, somewhat suggestive of chronic rounded atelectasis. There is additional nodule at the extreme right lung base measuring 1.1 cm, indeterminate (axial image 112), though likely also focal s carring or atelectasis. There is a 1 cm nodule in the left lower lobe (axial image 54), which is defi nitively increased from prior exam. Images through the upper abdomen reveal diffuse fatty infiltration of the liver. There is focal aneur ysmal dilatation of the descending thoracic aorta at the aortic hiatus to 4.2 cm in diameter. Impression: 1 cm left lower lobe pulmonary nodule, which is definitively increased from prior exam. Interval incr ease in size is suspicious for small neoplasm. Consider short-term interval follow-up (1-3 months) ve rsus tissue sampling, or possibly PET/CT. 1.8 cm pleural-based nodular opacity at the right lower lobe, and additional 1.1 cm nodule at the ext tameka right lung base, both which are suggestive of chronic rounded atelectasis and/or scarring, altho ugh other etiologies cannot be completely excluded. Again, short interval follow-up exam or PET/CT sh ould be considered for further evaluation. Severe emphysema. Diffuse fatty infiltration of the liver. Dilatation of distal thoracic aorta to 4.2 cm at the aortic hiatus. Reviewed, dictated and finalized at location M. Impression: 1 cm left lower lobe pulmonary nodule, which is definitively increased from cristhian or exam. Interval increase in size is suspicious for small neoplasm. Consider s hort-term interval follow-up (1-3 months) versus tissue sampling, or possibly P ET/CT. 1.8 cm pleural-based nodular opacity at the right lower lobe, and additional 1. 1 cm nodule at the extreme right lung base, both which are suggestive of chroni c rounded atelectasis and/or scarring, although other etiologies cannot be comp letely excluded. Again, short interval follow-up exam or PET/CT should be consi dered for further evaluation. Severe emphysema. Diffuse fatty infiltration of the liver. Dilatation of distal thoracic aorta to 4.2 cm at the aortic hiatus.
== END 2022-12-18 08:25 | disposition home or self-care (01) ==
PROVIDERS: PCP Internal Medicine; Visit Provider Internal Medicine Pulmonary Disease
DX: J90 Pleural effusion, not elsewhere classified (principal); J43.9 Emphysema, unspecified; K76.0 Fatty (change of) liver, not elsewhere classified
CPT/HCPCS: 71250

== ENCOUNTER 2023-03-04 08:52 | Outpatient (CLI) | payer MEDICARE, OTHER, SELFPAY ==
--- NOTE | ~2023-03-04 | CT_ITS ---
CT Scan of the Chest without Contrast: Clinical Indication: Lung nodule Technique: Contiguous sections were acquired throughout the chest without intravenous contrast. Dose reduction technique was used on this scan by utilizing automated exposure control and iterative recon struction technique. The dose-length product (DLP) was 120.39 mGy-cm. COMPARISON: 12/18/2022 Findings: There is no evidence of any significant mediastinal, hilar or axillary lymphadenopathy. The mediastin al soft tissues appear normal. There is no evidence of pleural or pericardial effusion. 9 mm left lower lobe pulmonary nodule is similar to prior exam (axial image 53). Moderate to advanced emphysema noted. Nodular opacities seen previously at the right lung base are largely resolved. Images through the upper abdomen reveal atherosclerotic calcifications of the aorta. Chronic minimal anterior wedging deformity of T11 noted. Impression: 9 mm left lower lobe pulmonary nodule is centrally stable from prior exam. This remains indeterminate . Recommend additional 3-6 month month follow-up CT versus PET/CT. Tissue sampling may be difficult g iven small size of the lesion. Moderate to advanced emphysema. Previously noted opacities at the right lung base are largely resolved. Reviewed, dictated and finalized at location . Impression: 9 mm left lower lobe pulmonary nodule is centrally stable from prior exam. This remains indeterminate. Recommend additional 3-6 month month follow-up CT versu s PET/CT. Tissue sampling may be difficult given small size of the lesion. Moderate to advanced emphysema. Previously noted opacities at the right lung base are largely resolved.
== END 2023-03-04 08:53 | disposition home or self-care (01) ==
PROVIDERS: PCP Internal Medicine; Visit Provider Nurse Practitioner Family
DX: R91.1 Solitary pulmonary nodule (principal); J43.9 Emphysema, unspecified
CPT/HCPCS: 71250

== ENCOUNTER 2023-06-04 12:33 | Outpatient (CLI) | payer MEDICARE, OTHER, SELFPAY ==
--- NOTE | ~2023-06-04 | CT_ITS ---
CT Scan of the Chest without Contrast: Clinical Indication: Pulmonary nodule Technique: Contiguous sections were acquired throughout the chest without intravenous contrast. Dose reduction technique was used on this scan by utilizing automated exposure control and iterative recon struction technique. The dose-length product (DLP) was 135.75 mGy-cm. COMPARISON: 03/04/2023 and 07/18/2022 and 05/03/2022 Findings: There is no evidence of any significant mediastinal, hilar or axillary lymphadenopathy. The mediastin al soft tissues appear normal. There is no evidence of pleural or pericardial effusion. Moderate to advanced emphysema present. 5 mm medial right basilar pulmonary nodule unchanged from mos t recent prior exam. There is a 1.1 cm nodule in the superior segment left lower lobe abutting the fi ssure, probably minimally increased from most recent prior exam, definitely significantly increased s alex 07/18/2022. Images through the upper abdomen reveal abdominal aorta which measures 4.0 cm at the aortic hiatus.. Impression: 1.1 cm left lower lobe pulmonary nodule, probably minimally increased from most recent prior exam, pr obably increased since 07/18/2022. Neoplasm not excluded. Consider continued short interval follow-up, tissue sampling, or PET/CT. Stable emphysema. Stable 5 mm right basilar pulmonary nodule. Stable 4 cm aneurysm of the aorta at the aortic hiatus. Reviewed, dictated and finalized at location . THERAPIST Impression: 1.1 cm left lower lobe pulmonary nodule, probably minimally increased from most recent prior exam, probably increased since 07/18/2022. Neoplasm not excluded. C onsider continued short interval follow-up, tissue sampling, or PET/CT. Stable emphysema. Stable 5 mm right basilar pulmonary nodule. Stable 4 cm aneurysm of the aorta at the aortic hiatus.
== END 2023-06-04 12:34 | disposition home or self-care (01) ==
PROVIDERS: PCP Internal Medicine; Visit Provider Nurse Practitioner Family
DX: R91.1 Solitary pulmonary nodule (principal); J43.9 Emphysema, unspecified; I71.9 Aortic aneurysm of unspecified site, without rupture
CPT/HCPCS: 71250

== ENCOUNTER 2023-08-30 11:11 | Outpatient (CLI) | payer MEDICARE, OTHER, SELFPAY ==
--- NOTE | ~2023-08-30 | CT_ITS ---
EXAMINATION: CT diagnostic chest wo con DATE: 08/30/2023 11:34 INDICATION: Pulmonary nodule follow-up TECHNIQUE: Computed tomography (CT) of the chest was performed without intravenous contrast. Automate d exposure control and iterative reconstruction technique were employed. Exam dose: 113.58 mGy-cm to chet exam DLP. COMPARISON: 06/04/2023 CTA chest 03/04/2023 CT chest FINDINGS: Up to 12 x 18 mm irregular soft tissue mass is noted along the greater fissure in the anterior aspect of the superior segment of the left lower lobe, increased in size from 8.7 x 12 mm approximate dimen trey on 03/04/2023, highly suspicious for malignant bronchogenic carcinoma. This would be amenable to CT-guided percutaneous needle biopsy. There is an approximately 7 mm irregular soft tissue mass in the medial basilar right lower lobe, inc reased in size from approximate 4.7 mm dimension on 03/04/2023. This is likely an additional bronchog enic carcinoma. Mild bilateral apical scarring. Moderately severe emphysematous changes and bullous disease of the padma ngs. No pulmonary infiltrate or consolidation. No hilar or mediastinal mass lesion or lymphadenopathy is noted. Normal heart size. Aortic valve calcification. 3.1 cm proximal descending thoracic aortic aneurysm. 3.9 cm distal descending thoracic aortic aneurysm. No pericardial or pleural effusion. Normal morphology of the adrenal glands. Diverticulosis of the colon. Degenerative disc disease of the lower cervical spine. Mild chronic anterior wedge compression fractu re deformity of T11. IMPRESSION: Approximately 1.8 cm irregular soft tissue mass of superior segment of the left lower lo be, increased in size from previous examinations, highly suggestive of malignant bronchogenic carcino ma in this patient with moderately severe emphysema Additional enlarging approximately 7 mm mass in the medial basilar right lower lobe, suspicious for a n additional bronchogenic carcinoma Moderately severe bullous emphysema Aortic valvular calcification 3.9 cm descending thoracic aortic aneurysm Reviewed, dictated and finalized at [facility]. Reviewed, dictated and finalized at location A. IMPRESSION: Approximately 1.8 cm irregular soft tissue mass of superior segmen t of the left lower lobe, increased in size from previous examinations, highly suggestive of malignant bronchogenic carcinoma in this patient with moderately severe emphysema Additional enlarging approximately 7 mm mass in the medial basilar right lower lobe, suspicious for an additional bronchogenic carcinoma Moderately severe bullous emphysema Aortic valvular calcification 3.9 cm descending thoracic aortic aneurysm
== END 2023-08-30 11:12 | disposition home or self-care (01) ==
LOC: ANHIMG 11:13
PROVIDERS: PCP Internal Medicine; Visit Provider Nurse Practitioner Family
DX: R91.1 Solitary pulmonary nodule (principal); J43.9 Emphysema, unspecified; I71.20 Thoracic aortic aneurysm, without rupture, unspecified
CPT/HCPCS: 71250

== ENCOUNTER 2023-09-28 05:23 | Inpatient (IN) | payer MEDICARE, OTHER, SELFPAY ==
[2023-09-28] VITALS (26 sets, daily range): BP systolic 83–125; BP diastolic 56–87; PULSE 84–96; RESP 10–20; TEMP 36.4–38.5; O2SAT 92–99; BMI 24.3
--- NOTE | ~2023-09-28 | XR_ITS ---
XR chest 1V portable DATE: 09/28/2023 06:21 INDICATION: History of lung cancer. COPD. TECHNIQUE: Portable upright AP views on 09/28/2023 at 0602 hours COMPARISON: August 30, 2023 CT chest FINDINGS: There is an approximately 1.8 cm mass in the left midlung, situated in the superior segment of the left lower lobe based on comparison with 08/30/2023 CT chest examination. This is likely prima ry bronchogenic carcinoma. There is patchy infiltrate or atelectasis in the lower lung zones, primarily on the left. Bilateral hyperinflation consistent with COPD. Minimal blunting of the right costophrenic angle; cannot exclude minimal right pleural effusion. No p ulmonary vascular congestion or pneumothorax. Size is normal. Thoracic aortic calcification. Diffuse osteopenia. IMPRESSION: Probable bronchogenic carcinoma superior segment left lower lobe 6 patchy infiltrate and/or atelectasis in the lower lung zones, primarily left lower lung COPD Reviewed, dictated and finalized at location A.
--- NOTE | 2023-09-28 05:24 | ECG_ITS ---
SEE SCANNED COPY FOR CONFIRMED REPORT MTDD
--- NOTE | 2023-09-28 05:26 | ED.SOB ---
HPI - SOB/Dyspnea General Chief Complaint: Shortness of Breath/Dyspnea Stated Complaint: sob History of Present Illness HPI Narrative: Patient with h/o COPD, lung cancer, presents with shortness of breath that started last night, he tried taking an inhaler which did help slightly, he also turned up the oxygen that he sleeps with, but still feels unwell. Is on a blood thinner. No chest pain or fevers or chills. Related Data Home Medications Medication Instructions Recorded Confirmed albuterol sulfate 90 mcg/actuation 1 inhalation inhalation Q4H PRN 05/27/19 05/01/23 aerosol inhaler (Ventolin HFA) Wheezing multivitamin (Multiple Vitamins 1 tablet PO DAILY 05/27/19 05/01/23 tablet) rivaroxaban 20 mg tablet (Xarelto) 20 mg PO DAILY 05/27/19 05/01/23 amlodipine 5 mg tablet 5 mg PO DAILY 06/11/22 05/01/23 atenolol 100 mg tablet 100 mg PO DAILY 06/11/22 05/01/23 ipratropium 0.5 mg-albuterol 3 mg 3 ml inhalation Q6H PRN Wheezing 06/11/22 05/01/23 (2.5 mg base)/3 mL nebulization soln pantoprazole 20 mg tablet,delayed 20 mg PO DIRECTED 07/03/22 05/01/23 release (Protonix) simvastatin 20 mg tablet 20 mg PO QAM 07/03/22 05/01/23 Allergies Allergy/AdvReac Type Severity Reaction Status Date / Time No Known Allergies Allergy Verified 05/01/23 10:42 Review of Systems Review of Systems: All systems reviewed & are unremarkable except as noted in HPI and below PMFSH Past Medical History Medical History COPD exacerbation History of DVT (deep vein thrombosis) History of prostate cancer Hyperlipidemia Hypertension Sleep apnea Thoracic aortic aneurysm without rupture Surgical History Surgical History H/O cataract extraction H/O foot surgery Family History Family History Mother Family history of lung cancer Social History Social History Social History: The patient lives at home with his who is the durable power business attorney for healthcare. If she cannot be durable power business attorney his daughters will be. The patient has 2 children. 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 Patient is a former smoker. He denies any alcohol marijuana or illicit drugs. Code status full code Smoking packs per day: 3 Smoking cigarettes per day: 60.0 Years smoked: 43 Smoking pack-years: 129.00 Smoking status: Former smoker Tobacco type: cigarettes Second hand tobacco smoke exposure: No Smoking end date: 05/20/05 Alcohol intake: current Drinks per week: 25 Lack of Transportation: No Lack of Food: Never True Current Housing: I Have Housing Concerned About Future Housing: No Difficulty Paying Gas/Electric Bills: No Difficulty Paying for Meds: No Currently Unemployed: No Education: High School Diploma/GED Difficulty w/ Childcare or Family Care: No Spiritual care concerns: No Exam Narrative: EXAMINATION OF ORGAN SYSTEMS/BODY AREAS: Constitutional: Vital signs per nursing GENERAL: Appears dyspneic HEAD: Normal with no signs of head trauma. EYES: EOMI, conjunctiva normal ENT: Hearing grossly intact LUNGS: Dyspneic, diminished lung sounds with some wheezing HEART: [Regular rate and rhythm] ABD: [Soft], nondistended EXT: Normal range of motion SKIN: [No rashes or lesions.] NEURO: [Alert and oriented x 3. No gross focal sensory or strength deficits.] PSYCH: Normal affect Course Vital Signs Vital signs: Vital Signs Temperature 99.5 F 09/28/23 05:18 Pulse Rate 95 09/28/23 05:18 Respiratory Rate 17 09/28/23 05:18 Blood Pressure 119/76 09/28/23 05:18 Pulse Oximetry 92 09/28/23 05:18 Oxygen Delivery Nasal Cannula 09/28/23 05:18 Oxygen Flow Rate 4 09/28/23 05:18 Temperature 101.3 F H 09/28/23 05:44 Pulse Rate 9
[2023-09-28 05:32] LABS: Basophils Percent Auto 0.3 % (0.2-1.2); Eosinophils Absolute Auto 0.1 K/mm3 (0-0.3); Eosinophils Percent Auto 1.3 % (0-4.4); Hematocrit 47.8 % (42.0-52.0); Hemoglobin 16.2 g/dL (14.0-18.0); Immature Granulocyte Absolute 0.02 K/mm3 (0.00-0.031); Immature Granulocyte Percent A 0.2 % (0-0.5); Lymphocytes Absolute Auto 0.89 K/mm3 (0.9-3.2); Lymphocytes Percent Auto 9.6 % (18.3-44.2); Mean Corpuscular HGB Conc 33.9 g/dl (32-36); Mean Corpuscular Hemoglobin 31.7 pg (26-34); Mean Corpuscular Volume 93.5 fl (80-100); Mean Platelet Volume 10.5 fl (7.4-10.4); Monocytes Absolute Auto 0.5 K/mm3 (0.1-0.6); Monocytes Percent Auto 5.3 % (2.6-8.5); Neutrophils Absolute Auto 7.7 K/mm3 (1.3-6.7); Neutrophils Percent Auto 83.3 % (45.5-73.1); Platelet Count Result 151 k/mm3 (150-375); Red Blood Count 5.11 M/mm3 (4.6-6.20); Red Cell Distribution Width 13.2 % (11.5-14.5); White Blood Count 9.2 K/mm3 (4.5-10.0)
[2023-09-28] MEDS: ACETAMINOPHEN 500 MG TABLET 1000 MG PO (05:41)
[2023-09-28 05:43] LABS: Alanine Aminotransferase 20 U/L (6-50); Alkaline Phosphatase 79 U/L (38-126); Anion Gap 5 mmol/L (4-12); Aspartate Amino Transferase 24 U/L (17-59); Blood Urea Nitrogen 11 mg/dL (9-20); Carbon Dioxide 30 mmol/L (22-30); Chloride 98 mmol/L (98-107); Estimated CRCL calculation 82 ml/min; Estimated Glomerular Filt Rate > 60; Glucose 114 mg/dL (65-110); Sodium 133 mmol/L (137-145)
[2023-09-28] MEDS: AZITHROMYCIN 250 MG TABLET 500 MG PO (05:43)
[2023-09-28] MEDS: IPRATROPIUM BR 0.02% INH SOLN 0.5 MG/2.5 ML VIAL 1 MG INHALATION (05:46)
[2023-09-28] MEDS: ALBUTEROL SULFATE NEB 2.5 MG/3 ML INH 15 MG INHALATION (05:47)
[2023-09-28 05:51] LABS: NT Pro B Type Natriuretic Pept 675 pg/mL (19.9-100)
[2023-09-28 06:05] LABS: Lactic Acid Reflex 1.5 mmol/L (0.7-2.0)
[2023-09-28 06:33] LABS: Influenza A QL RT-PCR Negative (Negative); Influenza B QL RT-PCR Negative (Negative); RSV RNA, RT-PCR Negative (Negative); SARS-CoV-2 RNA PCR Negative (Negative)
[2023-09-28] MEDS: predniSONE 20 MG TABLET 40 MG PO (06:39)
[2023-09-28] MEDS: LACTATED RINGERS 1,000 ML 999 ML IV CONT (06:39)
--- NOTE | 2023-09-28 08:27 | PC.NURSE ---
This patient, Donta Collins, was admitted to 2 Medical Room 260-01. Patient/family oriented to hospital policies and general routines including ID bracelet, bed and alarms, visiting hours, pain management, procedures, bathroom and other care routines, personal items, smoking policy, room service/diet, and visiting hours. Information on how to activate the Rapid Response Team has been discussed. Patient/Family are encouraged to report perceived risks to care and to ask questions if they do not understand what they are told or what they should do.
--- NOTE | 2023-09-28 11:07 | PM.IMHP ---
H&P: HPI History of Present Illness Date/Time: 09/28/23 11:07 Chief Complaint: Shortness of breath/dyspnea Narrative: This is a 72-year-old male with a significant past medical history of COPD, history of DVT, prostate cancer, lung cancer, hyperlipidemia, hypertension, sleep apnea, thoracic aortic aneurysm without rupture who presents to hospital with chief complaint of shortness of breath that started last night. Patient states that last night out of the blue he started in with some shortness of breath that was unrelieved with his inhalers at home. He presented for further evaluation. He denies any fever, chills, nausea, vomiting, diarrhea, abdominal pain, chest pain, shortness a breath, headache, lightheadedness, dizziness, cough. He still endorses mild chest discomfort on the left flank and shortness of breath with activity. He is currently on 2 L nasal cannula at rest. He normally wears 3 L with activity and 2 L at night only. At rest he normally does not require oxygen. On examination today he does have crackles noted in the left lower lobe. Workup in the hospital included chest x-ray which shows probable bronchogenic carcinoma superior segment left lower lobe, patchy infiltrate and/or atelectasis in the lower lung zones primarily left lower lung, COPD. Initial labs shown a white blood cell count of 9.2, sodium 133, lactic acid was 1.5, liver enzymes are normal, proBNP 675. Respiratory panel was obtained and was negative for influenza a and B, RSV, COVID. Blood cultures were obtained and are pending. EKG shows sinus tach with a rate of 100, QTC 435. Patient was given DuoNeb, albuterol neb, azithromycin and Rocephin, 2 L of IV fluids, 40 mg of prednisone while in the ED. Review of Systems Review of Systems: All systems reviewed & are unremarkable except as noted in HPI and below Constitutional: Constitutional: Reports as per HPI and Reports no additional constitutional complaints Eyes: Eyes: Reports as per HPI and Reports no additional eye complaints ENT: Reports system reviewed and no additional complaints, except as documented and Reports as per HPI Cardiovascular: Cardiovascular: Reports as per HPI and Reports no additional cardiovascular complaints Respiratory: Respiratory: Reports as per HPI and Reports no additional respiratory complaints Gastrointestinal: Gastrointestinal: Reports as per HPI and Reports no additional gastrointestinal complaints Genitourinary: Genitourinary: Reports no additional male genitourinary complaints and Reports as per HPI Musculoskeletal: Musculoskeletal: Reports no additional musculoskeletal complaints and Reports as per HPI Integumentary/Breasts: Skin/Breast: Reports system reviewed and no additional complaints, except as docu and Reports as per HPI Neurologic: Reports system reviewed and no additional complaints, except as documented and Reports as per HPI Psychiatric: Psychiatric: Reports no additional psychiatric complaints and Reports as per HPI [facility] Past Medical History Medical History COPD exacerbation History of DVT (deep vein thrombosis) History of prostate cancer Hyperlipidemia Hypertension Sleep apnea Thoracic aortic aneurysm without rupture Surgical History Surgical History H/O cataract extraction H/O foot surgery Family History Family History Mother Family history of lung cancer Social History Social History Social History: The patient lives at home with his who is the durable power correctional cook for healthcare. If she cannot be durable power correctional cook his daughters will be. The patient has 2 children. 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 Patient is a former smoker. He denies any alcohol marijuana or illicit drugs. Code stat
--- NOTE | 2023-09-28 16:22 | PM.CNPUL ---
Assessment and Plan Assessment and plan (1) Acute hypoxic respiratory failure: Code(s): J96.01 - Acute respiratory failure with hypoxia Status: Acute (2) Acute exacerbation of chronic obstructive pulmonary disease: Code(s): J44.1 - Chronic obstructive pulmonary disease with (acute) exacerbation Status: Acute (3) Lung nodule: Code(s): R91.1 - Solitary pulmonary nodule Status: Acute (4) Atrial fibrillation: Code(s): I48.91 - Unspecified atrial fibrillation Status: Chronic (5) Former smoker: Code(s): Z87.891 - Personal history of nicotine dependence Status: Acute (6) COPD, very severe: Code(s): J44.9 - Chronic obstructive pulmonary disease, unspecified Status: Chronic Assessment and Plan: This patient, who has very severe COPD and is chronically on maintenance bronchodilators and supplemental oxygen, presented with a one-day history of breathlessness. Reportedly, the patient has responded well to treatment for a COPD exacerbation, having received oral steroids, nebulized bronchodilators, and antibiotics. He is now back on his regular maintenance medications and his respiratory status has returned to baseline. Regarding the nodule in the left lung, for which he has had serial CT scans over the past six months, there is evidence of an increase in the size of the nodule. The patient is scheduled for a repeat PET scan, and depending on the results, he will undergo a lung biopsy. As his respiratory status has improved, we anticipate discharging the patient to his home in the morning. History of Present Illness History of Present Illness Consult date: 09/28/23 Chief complaint: COPD Exac/Hypoxic/PNA Narrative: This 72-year-old male patient, who has advanced COPD, reported a one-day history of shortness of breath. He is a familiar patient at our [facility] where he is monitored for severe COPD and recently, lung nodules that are scheduled for further examination. His normal health status was disrupted last evening when he began experiencing breathlessness, which was not alleviated by nebulized short-acting bronchodilators. Apart from shortness of breath, the patient reported no other respiratory symptoms such as chest pain, palpitations, orthopnea, hemoptysis, night sweats, fever, chills, cough, or sputum production. A chest X-ray examination revealed a known left lung nodule and advanced emphysematous changes. He has been treated with nebulized short-acting bronchodilators, oral prednisone, and antibiotics. Currently, his respiratory status has returned to baseline. His CBC showed no leukocytosis and his viral testing was negative for influenza, RSV, and COVID. The patient's COPD is extremely severe, with pulmonary function tests from 2018 showing an FEV1 of 30% predicted. Recent chest imaging revealed a new nodule in the left lung, which was followed up with a PET scan and surveillance CTs to monitor size stability. The last chest CT scan a month ago showed an increase in the size of the left lung nodule and another nodule that has grown from 4.7mm to 7mm over the past six months. He is scheduled for a repeat PET scan, and depending on the results, he will likely undergo a biopsy of the left lung nodule at another facility. Review of Systems Review of Systems: All systems reviewed & are unremarkable except as noted in HPI and below (HPI and below) [facility] Past Medical History Medical History COPD exacerbation History of DVT (deep vein thrombosis) History of prostate cancer Hyperlipidemia Hypertension Sleep apnea Thoracic aortic aneurysm without rupture Surgical History Surgical History H/O cataract extraction H/O foot surgery Family History Family History Mother Family history of lung
[2023-09-29] VITALS (15 sets, daily range): BP systolic 116–125; BP diastolic 63–73; PULSE 82–99; RESP 17–22; TEMP 36.3–37.1; O2SAT 91–96
[2023-09-29 05:09] LABS: Basophils Percent Auto 0.2 % (0.2-1.2); Eosinophils Percent Auto 0.1 % (0-4.4); Hematocrit 44.9 % (42.0-52.0); Hemoglobin 14.7 g/dL (14.0-18.0); Immature Granulocyte Absolute 0.03 K/mm3 (0.00-0.031); Immature Granulocyte Percent A 0.3 % (0-0.5); Immature Platelet Fraction Pct 8.2 % (0.9-11.2); Lymphocytes Absolute Auto 1.18 K/mm3 (0.9-3.2); Lymphocytes Percent Auto 12.1 % (18.3-44.2); Mean Corpuscular HGB Conc 32.7 g/dl (32-36); Mean Corpuscular Hemoglobin 31.6 pg (26-34); Mean Corpuscular Volume 96.6 fl (80-100); Mean Platelet Volume 11.2 fl (7.4-10.4); Monocytes Absolute Auto 0.7 K/mm3 (0.1-0.6); Monocytes Percent Auto 7.4 % (2.6-8.5); Neutrophils Absolute Auto 7.8 K/mm3 (1.3-6.7); Neutrophils Percent Auto 79.9 % (45.5-73.1); Platelet Count Result 137 k/mm3 (150-375); Red Blood Count 4.65 M/mm3 (4.6-6.20); Red Cell Distribution Width 13.2 % (11.5-14.5); White Blood Count 9.8 K/mm3 (4.5-10.0)
[2023-09-29 05:16] LABS: Alanine Aminotransferase 15 U/L (6-50); Albumin Level 3.6 g/dL (3.5-5.1); Alkaline Phosphatase 66 U/L (38-126); Anion Gap 4 mmol/L (4-12); Aspartate Amino Transferase 25 U/L (17-59); Bilirubin,Total 0.8 mg/dL (0.2-1.3); Blood Urea Nitrogen 12 mg/dL (9-20); Calcium 8.6 mg/dL (8.4-10.2); Carbon Dioxide 29 mmol/L (22-30); Chloride 101 mmol/L (98-107); Estimated CRCL calculation 112 ml/min; Estimated Glomerular Filt Rate > 60; Glucose 104 mg/dL (65-110); Magnesium 1.8 mg/dL (1.6-2.3); Potassium 3.8 mmol/L (3.4-5.0); Sodium 134 mmol/L (137-145)
--- NOTE | 2023-09-29 08:26 | PM.IMPN ---
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 which measures 1.8 cm in the left mid lung Last CT of the chest done on 08/30/2023 shown the 1.8 cm irregular soft tissue mass in the left lower lobe which is increased in size from previous exams (was showing 1.1 cm on 06/04/2023, and was noted to be a 9 mm left lower lobe pulmonary nodule on 03/04/2023) highly suggestive of malignant to bronchogenic carcinoma he also had a 7 mm mass in the medial basilar right lower lobe suspicious for an additional bronchogenic carcinoma, moderately severe bullous emphysema Continue Azithromycin and Rocephin Currently on 2L NC Continue to wean O2 for Saturation of > 92% Continue Duoneb breathing treatments and Mucinex Pulmonology consulted as they have been following these lung masses for quite a while (3) COPD, very severe: Code(s): J44.9 - Chronic obstructive pulmonary disease, unspecified Status: Chronic Assessment and Plan: 09/28/23: Wears O2 at home, usually 3L with activity and 2L at nighttime. Currently on 4L NC Patient followed by border measurer and cutter and has seen Duran Powers and Pro in the past Breztri and Albuterol inhaler on hold Duonebs ordered Health Information Management Director consulted, note reviewed: This patient, who has very severe COPD and is chronically on maintenance bronchodilators and supplemental oxygen, presented with a one-day history of breathlessness. Reportedly, the patient has responded well to treatment for a COPD exacerbation, having received oral steroids, nebulized bronchodilators, and antibiotics.? Patient initially improved but he had another episode of wheezing and shortness of breath last night which required treatment with nebulized bronchodilators.? A new finding is also expectoration of thick yellow phlegm.? Plan:? He needs to stay in the hospital to receive treatment for COPD exacerbation which appears to be the most likely diagnosis at this point.? Have added Augmentin orally and IV Solu-Medrol.? Continue with short-acting bronchodilators q.4 hours p.r.n..? Regarding the lung nodule which is highly suspicious for malignancy I had another discussion with the patient and his regarding further workup.? The patient is scheduled to undergo PET scan later on this month.? We may have to do the lung biopsy before the PET scan.? Will continue to monitor the patient's respiratory status. (4) Atrial fibrillation: Code(s): I48.91 - Unspecified atrial fibrillation Status: Chronic Assessment and Plan: 09/28/23: Continue Xarelto EKG showing sinus tach with a heart rate of 100, heart rate now is in the 80s to 90s and more rate controlled Soft blood pressures, will hold Atenolol for now (5) Hyperlipidemia: Code(s): E78.5 - Hyperlipidemia, unspecified Status: Chronic Assessment and Plan: 09/28/23: Continue simvastatin (6) Hypertension: Code(s): I10 - Essential (primary) hypertension Status: Chronic Assessment and Plan: 09/28/23: Blood pressures ranging 89/66 to 112/74 Will hold amlodipine 5 mg daily for now (7) Sleep apnea: Code(s): G47.30 - Sleep apnea, unspecified Status: Chronic Assessment and Pl
[2023-09-29] MEDS: PANTOPRAZOLE 40 MG TABLET PO (08:30)
[2023-09-29] MEDS: MULTIVITAMINS THERAPEUTIC TAB (*BKC) 1 TABLET PO (08:30)
[2023-09-29] MEDS: SIMVASTATIN 20 MG TABLET PO (08:30)
[2023-09-29] MEDS: RIVAROXABAN 20 MG TABLET PO (08:30)
[2023-09-29] MEDS: IPRATROPIUM 0.5 MG/ALBUTEROL SULFATE 2.5 MG AMPUL.NEB 3 ML INHALATION ×3 (10:25→21:18)
[2023-09-29] MEDS: guaiFENesin 600 MG/DEXTROMETHORPHAN 30 MG SR TAB 12 HR 1 TAB PO ×2 (11:05→21:16)
--- NOTE | 2023-09-29 11:47 | PM.PNPUL ---
Progress Note: A&P Assessment and Plan (1) Acute exacerbation of chronic obstructive pulmonary disease: Code(s): J44.1 - Chronic obstructive pulmonary disease with (acute) exacerbation Status: Acute Assessment and Plan: This patient, who has very severe COPD and is chronically on maintenance bronchodilators and supplemental oxygen, presented with a one-day history of breathlessness. Reportedly, the patient has responded well to treatment for a COPD exacerbation, having received oral steroids, nebulized bronchodilators, and antibiotics. Patient initially improved but he had another episode of wheezing and shortness of breath last night which required treatment with nebulized bronchodilators. A new finding is also expectoration of thick yellow phlegm. Plan: He needs to stay in the hospital to receive treatment for COPD exacerbation which appears to be the most likely diagnosis at this point. Have added Augmentin orally and IV Solu-Medrol. Continue with short-acting bronchodilators q.4 hours p.r.n.. Regarding the lung nodule which is highly suspicious for malignancy I had another discussion with the patient and his regarding further workup. The patient is scheduled to undergo PET scan later on this month. We may have to do the lung biopsy before the PET scan. Will continue to monitor the patient's respiratory status. (2) Atrial fibrillation: Code(s): I48.91 - Unspecified atrial fibrillation Status: Chronic (3) COPD, very severe: Code(s): J44.9 - Chronic obstructive pulmonary disease, unspecified Status: Chronic (4) Lung nodule: Code(s): R91.1 - Solitary pulmonary nodule Status: Acute Subjective Date/time seen: 09/29/23 11:47 Interval history: Patient stated that he had more shortness of breath and wheezing last night and also earlier today. Reportedly his wheezing and shortness of breath improved following nebulized short-acting bronchodilator. Also started coughing up thick yellow phlegm. He has no fever chills or hemoptysis. also at the bedside today Review of Systems Review of Systems: All systems reviewed & are unremarkable except as noted in HPI and below (HPI and below) Exam Narrative: GENERAL APPEARANCE: Well developed, well nourished, alert and cooperative, and appears to be in no acute distress while on supplemental oxygen SKIN: Inspection of the skin reveals no rashes, ulcerations or petechiae. HEENT: Sclerae anicteric and conjunctivae pink and moist. Extraocular movements were intact and pupils were equal, round, and reactive to light. The oral mucosa, hard and soft palate, tongue and posterior pharynx were normal. NECK: Supple. There was no thyroid enlargement, and no tenderness, or masses were felt. CHEST: Hyperinflated chest LUNGS: Distant breath sounds bilaterally no wheezing CARDIAC: There was a regular rate and rhythm without any murmurs, gallops, rubs. ABDOMEN: Soft and nontender with normal bowel sounds. There was no organomegaly. LYMPH NODES: No lymphadenopathy was appreciated in the neck. EXTREMITIES: No cyanosis, clubbing or edema. NEUROLOGIC: Alert and oriented x 3. Normal affect. Objective Data Vital Signs Vital Signs: Vital Signs - 24 hr 09/28/23 14:05 09/28/23 17:50 09/28/23 19:12 Temperature 36.6 C 37.1 C 36.4 C Pulse Rate 84 84 84 Respiratory Rate 16 20 18 Blood Pressure 123/68 112/72 125/87 Pulse Oximetry 95 93 97 Oxygen Delivery Oxygen Flow Rate 09/28/23 23:39 09/29/23 03:54 09/29/23 08:00 Temperature 36.4 C 36.4 C 36.7 C Pulse Rate 96 91 85 Respiratory Rate 20 20 22 H Blood Pressure 112/56 L 116/63 125/71 Pulse Oximetry 96 95 95 Oxygen Delivery Oxygen Flow Rate 09/29/23 10:28 09/29/23 10:29 09/29/23 10:34 Temperature Pulse Rate 92 Respiratory Rate 20 20 Blood Pressure Pulse Oximetry 91 Oxygen Delivery Nasal Cannula Oxygen Flow Rate 2 09/29/23 08:25 Temperature
[2023-09-29] MEDS: methylPREDNISolone SOD SUCC 125 MG VIAL 60 MG IV PUSH ×2 (12:39→21:15)
[2023-09-29] MEDS: FLUTICASONE/UMECLIDIN/VILANTER 100-62.5-25 MCG ELLIPTA 1 PUFF INHALATION (13:58)
[2023-09-29] MEDS: AMOXICILLIN/CLAVULANATE K 875-125 MG TAB 1 TABLET PO (21:16)
[2023-09-30] VITALS (8 sets, daily range): BP systolic 114–133; BP diastolic 60–83; PULSE 77–98; RESP 17–20; TEMP 36.5–36.6; O2SAT 91–97
[2023-09-30] MEDS: IPRATROPIUM 0.5 MG/ALBUTEROL SULFATE 2.5 MG AMPUL.NEB 3 ML INHALATION ×2 (02:40→07:40)
[2023-09-30 05:59] LABS: Basophils Percent Auto 0.1 % (0.2-1.2); Hematocrit 45.5 % (42.0-52.0); Hemoglobin 14.9 g/dL (14.0-18.0); Immature Granulocyte Absolute 0.04 K/mm3 (0.00-0.031); Immature Granulocyte Percent A 0.6 % (0-0.5); Lymphocytes Absolute Auto 0.46 K/mm3 (0.9-3.2); Lymphocytes Percent Auto 6.8 % (18.3-44.2); Mean Corpuscular HGB Conc 32.7 g/dl (32-36); Mean Corpuscular Hemoglobin 31.2 pg (26-34); Mean Corpuscular Volume 95.4 fl (80-100); Mean Platelet Volume 11.2 fl (7.4-10.4); Monocytes Absolute Auto 0.2 K/mm3 (0.1-0.6); Monocytes Percent Auto 2.5 % (2.6-8.5); Platelet Count Result 147 k/mm3 (150-375); Red Blood Count 4.77 M/mm3 (4.6-6.20); Red Cell Distribution Width 12.9 % (11.5-14.5); White Blood Count 6.7 K/mm3 (4.5-10.0)
[2023-09-30 06:06] LABS: Alanine Aminotransferase 19 U/L (6-50); Albumin Level 3.8 g/dL (3.5-5.1); Alkaline Phosphatase 89 U/L (38-126); Anion Gap 6 mmol/L (4-12); Aspartate Amino Transferase 23 U/L (17-59); Bilirubin,Total 0.6 mg/dL (0.2-1.3); Blood Urea Nitrogen 14 mg/dL (9-20); Carbon Dioxide 28 mmol/L (22-30); Chloride 98 mmol/L (98-107); Estimated CRCL calculation 112 ml/min; Estimated Glomerular Filt Rate > 60; Glucose 177 mg/dL (65-110); Potassium 3.5 mmol/L (3.4-5.0); Sodium 132 mmol/L (137-145)
--- NOTE | 2023-09-30 07:26 | P.PNIM_ITS ---
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 which measures 1.8 cm in the left mid lung * Last CT of the chest done on 08/30/2023 shown the 1.8 cm irregular soft tissue mass in the left lower lobe which is increased in size from previous exams (was showing 1.1 cm on 06/04/2023, and was noted to be a 9 mm left lower lobe pulmonary nodule on 03/04/2023) highly suggestive of malignant to bronchogenic carcinoma he also had a 7 mm mass in the medial basilar right lower lobe suspicious for an additional bronchogenic carcinoma, moderately severe bullous emphysema * Continue Azithromycin and Rocephin * Currently on 2L NC * Continue to wean O2 for Saturation of > 92% * Continue Duoneb breathing treatments and Mucinex * Pulmonology consulted as they have been following these lung masses for quite a while 09/30/23: * Continue Augmentin * Continue Duoneb breathing treatment * Pulmonology following * Still requiring 1-2L NC at rest (3) COPD, very severe: Code(s): J44.9 - Chronic obstructive pulmonary disease, unspecified Status: Chronic Assessment and Plan: 09/28/23: * Wears O2 at home, usually 3L with activity and 2L at nighttime. * Currently on 4L NC * Patient followed by planning assistant and has seen Duran Powers and Pro in the past * Breztri and Albuterol inhaler on hold * Duonebs ordered * Animal Shelter Manager consulted 09/30/23: * Currently on 1-2L NC * Animal Shelter Manager following * Continue Duonebs and steroids (4) Atrial fibrillation: Code(s): I48.91 - Unspecified atrial fibrillation Status: Chronic Assessment and Plan: 09/28/23: * Continue Xarelto * EKG showing sinus tach with a heart rate of 100, heart rate now is in the 80s to 90s and more rate controlled * Soft blood pressures, will hold Atenolol for now 09/30/23: * Continue atenolol * No change to current treatment plan (5) Hyperlipidemia: Code(s): E78.5 - Hyperlipidemia, unspecified Status: Chronic Assessment and Plan: 09/28/23: * Continue simvastatin 09/30/23: * No change to current treatment plan (6) Hypertension: Code(s): I10 - Essential (primary) hypertension Status: Chronic Assessment and Plan: 09/28/23: * Blood pressures ranging 89/66 to 112/74 * Will hold amlodipine 5 mg daily for now 09/30/23: * Blood pressures ranging 114/60-122/71 * Continue amlodipine (7) Sleep apnea: Code(s): G47.30 - Sleep apnea, unspecified Status: Chronic Assessment and Plan: 09/28/23: * wears 2L at
--- NOTE | 2023-09-30 07:26 | PM.IMPN ---
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 which measures 1.8 cm in the left mid lung Last CT of the chest done on 08/30/2023 shown the 1.8 cm irregular soft tissue mass in the left lower lobe which is increased in size from previous exams (was showing 1.1 cm on 06/04/2023, and was noted to be a 9 mm left lower lobe pulmonary nodule on 03/04/2023) highly suggestive of malignant to bronchogenic carcinoma he also had a 7 mm mass in the medial basilar right lower lobe suspicious for an additional bronchogenic carcinoma, moderately severe bullous emphysema Continue Azithromycin and Rocephin Currently on 2L NC Continue to wean O2 for Saturation of > 92% Continue Duoneb breathing treatments and Mucinex Pulmonology consulted as they have been following these lung masses for quite a while 09/30/23: Continue Augmentin Continue Duoneb breathing treatment Pulmonology following Still requiring 1-2L NC at rest (3) COPD, very severe: Code(s): J44.9 - Chronic obstructive pulmonary disease, unspecified Status: Chronic Assessment and Plan: 09/28/23: Wears O2 at home, usually 3L with activity and 2L at nighttime. Currently on 4L NC Patient followed by health coordinator and has seen Duran Powers and Pro in the past Breztri and Albuterol inhaler on hold Duonebs ordered Catalyst Plant Supervisor consulted 09/30/23: Currently on 1-2L [facility] Catalyst Plant Supervisor following Continue Duonebs and steroids (4) Atrial fibrillation: Code(s): I48.91 - Unspecified atrial fibrillation Status: Chronic Assessment and Plan: 09/28/23: Continue Xarelto EKG showing sinus tach with a heart rate of 100, heart rate now is in the 80s to 90s and more rate controlled Soft blood pressures, will hold Atenolol for now 09/30/23: Continue atenolol No change to current treatment plan (5) Hyperlipidemia: Code(s): E78.5 - Hyperlipidemia, unspecified Status: Chronic Assessment and Plan: 09/28/23: Continue simvastatin 09/30/23: No change to current treatment plan (6) Hypertension: Code(s): I10 - Essential (primary) hypertension Status: Chronic Assessment and Plan: 09/28/23: Blood pressures ranging 89/66 to 112/74 Will hold amlodipine 5 mg daily for now 09/30/23: Blood pressures ranging 114/60-122/71 Continue amlodipine (7) Sleep apnea: Code(s): G47.30 - Sleep apnea, unspecified Status: Chronic Assessment and Plan: 09/28/23: wears 2L at night at baseline Does not wear a CPAP 09/30/23: No change to current treatment plan. Time Spent With Patient Time with patient: 25 - 35 minutes Subjective Date/time seen: 09/30/23 07:26 Interval history: 09/28/23: This is a 72-year-old male with a significant past medical history of COPD, history of DVT, prostate cancer, lung cancer, hyperlipidemia, hypertension, sleep apnea, thoracic aortic aneurysm without rupture who presents to hospital with chief complaint of shortness of breath
[2023-09-30] MEDS: FLUTICASONE/UMECLIDIN/VILANTER 100-62.5-25 MCG ELLIPTA 1 PUFF INHALATION (07:41)
--- NOTE | 2023-09-30 09:08 | PM.PNPUL ---
Progress Note: A&P Assessment and Plan (1) Acute exacerbation of chronic obstructive pulmonary disease: Code(s): J44.1 - Chronic obstructive pulmonary disease with (acute) exacerbation Status: Acute Assessment and Plan: Patient with very severe COPD lung nodules for which is scheduled to undergo further testing with PET scan and lung nodule biopsy on outpatient basis presented with shortness of breath related to COPD exacerbation. The patient has responded treatment with a steroids nebulized short-acting bronchodilators and antibiotic. His respiratory status is back at baseline. Plan patient can be discharged home today. He will continue with his maintenance bronchodilators, home oxygen at previous flow rate, prednisone 40 mg p.o. daily for 4 days, current dose of Augmentin twice daily for 7 days. The patient has appointment to return to Pulmonary Clinic regarding his advanced COPD respiratory failure and workup of his lung nodules. Will sign off please call with any questions. (2) Atrial fibrillation: Code(s): I48.91 - Unspecified atrial fibrillation Status: Chronic (3) Emphysema of lung: Qualifiers: Emphysema type: unspecified Qualified Code(s): J43.9 - Emphysema, unspecified Code(s): J43.9 - Emphysema, unspecified Status: Acute (4) Lung nodule: Code(s): R91.1 - Solitary pulmonary nodule Status: Acute Subjective Date/time seen: 09/30/23 09:08 Interval history: Patient doing better. Less shortness of breath. Coughing also less and no wheezing. Afebrile. He wants to go home Review of Systems Review of Systems: All systems reviewed & are unremarkable except as noted in HPI and below (HPI and below) Exam Narrative: GENERAL APPEARANCE: Well developed, well nourished, alert and cooperative, and appears to be in no acute distress while on supplemental oxygen SKIN: Inspection of the skin reveals no rashes, ulcerations or petechiae. HEENT: Sclerae anicteric and conjunctivae pink and moist. Extraocular movements were intact and pupils were equal, round, and reactive to light. The oral mucosa, hard and soft palate, tongue and posterior pharynx were normal. NECK: Supple. There was no thyroid enlargement, and no tenderness, or masses were felt. CHEST: Hyperinflated chest LUNGS: Distant breath sounds bilaterally no wheezing CARDIAC: There was a regular rate and rhythm without any murmurs, gallops, rubs. ABDOMEN: Soft and nontender with normal bowel sounds. There was no organomegaly. LYMPH NODES: No lymphadenopathy was appreciated in the neck. EXTREMITIES: No cyanosis, clubbing or edema. NEUROLOGIC: Alert and oriented x 3. Normal affect. Objective Data Vital Signs Vital Signs: Vital Signs - 24 hr 09/29/23 10:28 09/29/23 10:29 09/29/23 10:34 Temperature Pulse Rate 92 Respiratory Rate 20 20 Blood Pressure Pulse Oximetry 91 Oxygen Delivery Nasal Cannula Oxygen Flow Rate 2 09/29/23 12:00 09/29/23 14:00 09/29/23 14:08 Temperature 37.0 C Pulse Rate 98 94 99 Respiratory Rate 18 20 20 Blood Pressure 116/65 Pulse Oximetry 95 Oxygen Delivery Oxygen Flow Rate 09/29/23 15:55 09/29/23 20:00 09/29/23 21:19 Temperature 37.1 C 36.4 C Pulse Rate 94 82 82 Respiratory Rate 18 17 20 Blood Pressure 122/73 122/71 Pulse Oximetry 94 95 Oxygen Delivery Oxygen Flow Rate 09/29/23 21:23 09/29/23 21:26 09/29/23 23:28 Temperature 36.3 C L Pulse Rate 82 86 92 Respiratory Rate 20 17 Blood Pressure 119/65 Pulse Oximetry 94 96 Oxygen Delivery Nasal Cannula Oxygen Flow Rate 2 09/29/23 20:00 09/30/23 02:40 09/30/23 02:48 Temperature Pulse Rate 92 77 83 Respiratory Rate 17 20 20 Blood Pressure Pulse Oximetry 96 Oxygen Delivery Nasal Cannula Oxygen Flow Rate 1 09/30/23 03:35 Temperature 36.5 C Pulse Rate 84 Respiratory Rate 17 Blood Pressure 114/60 Pulse Oximetry 97 Oxygen [employer]
[2023-09-30] MEDS: AMOXICILLIN/CLAVULANATE K 875-125 MG TAB 1 TABLET PO (09:25)
[2023-09-30] MEDS: amLODIPine BESYLATE 5 MG TABLET PO (09:25)
[2023-09-30] MEDS: RIVAROXABAN 20 MG TABLET PO (09:25)
[2023-09-30] MEDS: atenoloL 50 MG TABLET 100 MG PO (09:25)
[2023-09-30] MEDS: SIMVASTATIN 20 MG TABLET PO (09:26)
[2023-09-30] MEDS: guaiFENesin 600 MG/DEXTROMETHORPHAN 30 MG SR TAB 12 HR 1 TAB PO (09:26)
[2023-09-30] MEDS: PANTOPRAZOLE 40 MG TABLET PO (09:26)
[2023-09-30] MEDS: MULTIVITAMINS THERAPEUTIC TAB (*BKC) 1 TABLET PO (09:26)
[2023-09-30] MEDS: methylPREDNISolone SOD SUCC 125 MG VIAL 60 MG IV PUSH (09:27)
--- NOTE | 2023-09-30 10:21 | PM.DS ---
DS: Admitting Diagnosis Discharge Date 09/30/23 Admitting Diagnosis Acute hypoxic respiratory failure Pneumonia Very severe COPD Atrial fibrillation hyperlipidemia hypertension sleep apnea DS: Discharge Diagnosis Discharge Diagnosis (1) Acute hypoxic respiratory failure: Code(s): J96.01 - Acute respiratory failure with hypoxia Status: Acute (2) Pneumonia: Code(s): J18.9 - Pneumonia, unspecified organism Status: Acute (3) COPD, very severe: Code(s): J44.9 - Chronic obstructive pulmonary disease, unspecified Status: Chronic (4) Atrial fibrillation: Code(s): I48.91 - Unspecified atrial fibrillation Status: Chronic (5) Hyperlipidemia: Code(s): E78.5 - Hyperlipidemia, unspecified Status: Chronic (6) Hypertension: Code(s): I10 - Essential (primary) hypertension Status: Chronic (7) Sleep apnea: Code(s): G47.30 - Sleep apnea, unspecified Status: Chronic DS: Summary Hospital Course Reason for hospitalization: Acute hypoxic respiratory failure Pneumonia Very severe COPD Atrial fibrillation hyperlipidemia hypertension sleep apnea Hospital Course: 09/28/23: This is a 72-year-old male with a significant past medical history of COPD, history of DVT, prostate cancer, lung cancer, hyperlipidemia, hypertension, sleep apnea, thoracic aortic aneurysm without rupture who presents to hospital with chief complaint of shortness of breath that started last night.? Patient states that last night out of the blue he started in with some shortness of breath that was unrelieved with his inhalers at home.? He presented for further evaluation.? He denies any fever, chills, nausea, vomiting, diarrhea, abdominal pain, chest pain, shortness a breath, headache, lightheadedness, dizziness, cough.? He still endorses mild chest discomfort on the left flank and shortness of breath with activity.? He is currently on 2 L nasal cannula at rest.? He normally wears 3 L with activity and 2 L at night only.? At rest he normally does not require oxygen.? On examination today he does have crackles noted in the left lower lobe.? Workup in the hospital included chest x-ray which shows probable bronchogenic carcinoma superior segment left lower lobe, patchy infiltrate and/or atelectasis in the lower lung zones primarily left lower lung, COPD.? Initial labs shown a white blood cell count of 9.2, sodium 133, lactic acid was 1.5, liver enzymes are normal, proBNP 675.? Respiratory panel was obtained and was negative for influenza a and B, RSV, COVID.? Blood cultures were obtained and are pending.? EKG shows sinus tach with a rate of 100, QTC 435.? Patient was given DuoNeb, albuterol neb, azithromycin and Rocephin, 2 L of IV fluids, 40 mg of prednisone while in the ED. 09/30/23: Patient currently on 1-2L of oxygen. He had another episode of wheezing and SOB yesterday and was placed on IV Solu-medrol by bottle carrier. Labs today shown a Plt count of 147, Sodium 132, BG ranging 104-177. Blood cultures showing no growth on preliminary read. patient is stable for discharge at this time. He will need to continue Solu-medrol taper, duonebs, and Augmentin antibiotic as directed. He will follow up with Oncology Coordinator within 2 weeks for follow up. Final diagnosis: Acute hypoxic respiratory failure, pneumonia, Acute on chronic severe COPD Status at Discharge Cognitive/behavioral status at discharge: Alert and oriented x4 Functional status at discharge: independent ambulation Overall status at discharge: patient is progressing back to baseline Time Spent with Patient Time attestation: Total time spent providing and/or coordinating discharge services: Time spent: Greater than 30 minutes Exam Narrative: General: In no acute distress, well nourished Head: atraumatic, no encephalopathy Eyes: EOMI, PERRLA, sclera clear ENT: moist mucous membranes, nasal passages clear Neck: supple, no JVD, no adenopathy, tra
== END 2023-09-30 12:40 | disposition home or self-care (01) | DRG 193 ==
LOC: ANHED 06:42 → ANH3MEDSUR 07:47 → ANH2MED 08:02
PROVIDERS: Admitting Provider Internal Medicine; Emergency Provider Emergency Medicine; PCP Internal Medicine; Visit Provider Nurse Practitioner Acute Care
DX: J18.9 Pneumonia, unspecified organism (principal); J96.01 Acute respiratory failure with hypoxia; C34.32 Malignant neoplasm of lower lobe, left bronchus or lung; J44.0 Chronic obstructive pulmonary disease with (acute) lower respiratory infection; I48.20 Chronic atrial fibrillation, unspecified; J44.1 Chronic obstructive pulmonary disease with (acute) exacerbation; I10 Essential (primary) hypertension; I71.20 Thoracic aortic aneurysm, without rupture, unspecified; C61 Malignant neoplasm of prostate; E78.5 Hyperlipidemia, unspecified; G47.30 Sleep apnea, unspecified; Z20.822 Contact with and (suspected) exposure to COVID-19; Z99.81 Dependence on supplemental oxygen; Z79.01 Long term (current) use of anticoagulants; Z86.718 Personal history of other venous thrombosis and embolism; Z87.891 Personal history of nicotine dependence
CPT/HCPCS: 36415; 71045; 80053; 83605; 83735; 83880; 84443; 85025; 85055; 87040; 87637; 93005; 94640; 96365; 99291; A9270; J0696; J2919; J7030; J7120; J7512

== ENCOUNTER 2023-10-15 09:00 | Outpatient (CLI) | payer MEDICARE, OTHER, SELFPAY ==
--- NOTE | ~2023-10-15 | PE_ITS ---
EXAMINATION: PET skull to mid thigh DATE: 10/15/2023 11:07 INDICATION: Lung cancer. Lung nodule. TECHNIQUE: Blood glucose level was 111 mg/dL. 10.219 mCi of 18-fluorodeoxyglucose (18-FDG) was admini stered i.v. Low dose computed tomography (CT) images were acquired from the base of the brain to the proximal thighs for attenuation correction and anatomic localization. Automated exposure control was employed. Dose-length product (DLP) was 734 mGy-cm. Positron emission tomography (PET) images were ac quired in the same distribution. COMPARISON: PET/CT 09/20/22, chest CT 08/30/23, 12/18/22 FINDINGS: Head/neck: There are no pathologically enlarged lymph nodes. Chest: There is mild scarring at the lung apices. There is severe emphysema. There are patchy airspac e opacities in the lower lobes with maximum SUV of 3.2, consistent with pneumonia. There is a 1.7 cm nodule in left lower lobe with maximum SUV of 1.5. There are small pleural effusions. The heart size is normal. There are coronary artery calcifications. No pericardial effusion. There is mild mediastin al lymphadenopathy without increased activity, likely reactive. There is ectasia distal descending ao rta measuring 4.0 cm. Abdomen/pelvis/proximal thighs: There is diffuse hepatic steatosis. The gallbladder, spleen, pancreas , adrenal glands, and kidneys are normal. There is no urolithiasis. There is calcified atherosclerosi s of the aorta and many of the other arteries. There is a 3.0 cm fusiform aneurysm of infrarenal aort a. There are bilateral inguinal hernias containing fat. There is diverticulosis of the colon without evidence of diverticulitis. The appendix is normal. There are no pathologically enlarged lymph nodes. There is no osseous malignancy. IMPRESSION: 1. 1.7 cm left lower lobe pulmonary nodule with maximum SUV of 1.5, increased from 1.3 cm on 4. The increase in size is suspicious for primary bronchogenic carcinoma. The patient likely not a ca ndidate for CT-guided biopsy due to home oxygen use. 2. Bilateral lower lobe pneumonia. 3. Severe emphysema. Reviewed, dictated and finalized at location A. IMPRESSION: 1. 1.7 cm left lower lobe pulmonary nodule with maximum SUV of 1.5, increased f rom 1.3 cm on 06/04/2023. The increase in size is suspicious for primary broncho genic carcinoma. The patient likely not a candidate for CT-guided biopsy due to home oxygen use. 2. Bilateral lower lobe pneumonia. 3. Severe emphysema.
[2023-10-15 09:28] LABS: Glucose Point of Care 111 mg/dl (65-105)
== END 2023-10-15 09:01 | disposition home or self-care (01) ==
PROVIDERS: PCP Internal Medicine; Visit Provider Internal Medicine Critical Care Medicine
DX: R91.1 Solitary pulmonary nodule (principal); J18.9 Pneumonia, unspecified organism; J43.9 Emphysema, unspecified
CPT/HCPCS: 78815; A9552

== ENCOUNTER 2024-01-03 18:09 | Observation (INO) | payer MEDICARE, OTHER, SELFPAY ==
--- NOTE | ~2024-01-03 | CT_ITS ---
EXAMINATION: CTA chest PE protocol DATE: 01/04/2024 07:52 INDICATION: Shortness of breath. Left lower chest pain. COPD. TECHNIQUE: Computed tomography (CT) pulmonary angiogram of the chest was performed with 100 mL Omnipa que-350 intravenous contrast. Additional 3D reconstructions utilizing coronal maximum intensity proje ction (MIP) were performed. Automated exposure control and iterative reconstruction technique were em ployed. The dose-length product was 664.20 mGy-cm. COMPARISON: Chest CT dated 08/30/2023 FINDINGS: No pulmonary embolism. Severe emphysema. Slight increase in size of a now 1.9 x 1.6 cm, previously 1. 8 x 1.3 cm mass at the superior segment of the left upper lobe. No significant change in a 7 mm nodul e in the posterior basilar segment of the right lower lobe. Small band of atelectasis at the anteroba silar segment of the left lower lobe. No pneumonia, pulmonary edema, pleural effusion or pneumothorax . Heart size is normal. Aortic valve calcification. Thoracic aorta is normal in caliber with no disse ction. No pathologically enlarged thoracic lymphadenopathy. 4.3 x 3.7 cm fusiform aortic aneurysm at the thoracic hiatus. There are a few chronic appearing mild compression fractures in the mid and lowe r thoracic spine. IMPRESSION: 1. Severe emphysema. No pulmonary embolism or other acute cardiopulmonary disease. 2. Enlarging 1.9 x 1.6 cm mass in the superior segment of the left lower lobe suspicious for primary bronchogenic carcinoma. 3. 4.2 x 3.7 cm fusiform aortic aneurysm at the thoracic hiatus. Reviewed, dictated and finalized at location A. IMPRESSION: 1. Severe emphysema. No pulmonary embolism or other acute cardiopulmonary disea se. 2. Enlarging 1.9 x 1.6 cm mass in the superior segment of the left lower lobe s uspicious for primary bronchogenic carcinoma. 3. 4.2 x 3.7 cm fusiform aortic aneurysm at the thoracic hiatus.
--- NOTE | ~2024-01-03 | XR_ITS ---
EXAMINATION: XR chest 2V DATE: 01/03/2024 18:59 INDICATION: Chest pain and shortness of breath TECHNIQUE: frontal and lateral views of the chest were obtained. COMPARISON: Chest radiograph dated 09/28/[address] dated 08/30/2023 FINDINGS: Emphysema with increased lucency and architectural distortion in the bilateral upper lung zones. 1.7 cm left perihilar mass suspicious for pneumonia. Mild airspace opacities along the the anterolateral left lung base which could represent atelectasis or pneumonia. Blunting at the posterior sulci sugges ting tiny bilateral pleural effusions. No pulmonary edema or pneumothorax. Heart size is normal. 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 Bone island at the left hu meral neck. IMPRESSION: 1. Emphysema with mild anterolateral left basilar opacities which could represent atelectasis or pneu monia. 2. Possible tiny bilateral pleural effusions. 3. 1.7 cm perihilar left lower lobe mass suspicious for primary bronchogenic carcinoma. Reviewed, dictated and finalized at location A. IMPRESSION: 1. Emphysema with mild anterolateral left basilar opacities which could represe nt atelectasis or pneumonia. 2. Possible tiny bilateral pleural effusions. 3. 1.7 cm perihilar left lower lobe mass suspicious for primary bronchogenic ca rcinoma.
--- NOTE | 2024-01-03 18:13 | ECG_ITS ---
Test Date: 2024-01-03 18:18:35 Measurements Intervals [place] Rate: 97 P: 76 AR: 130 QRS: 9 QRSD: 80 T: 70 QT: 353 QTc: 450 Interpretive Statements SINUS RHYTHM WITH FREQUENT VENTRICULAR PREMATURE COMPLEXES NONSPECIFIC ST SEGMENT ABNORMALITY ABNORMAL RHYTHM ECG No previous ECG available for comparison Electronically Signed On 01-04-2024 09:27:51 CDT by Emeka Alcala M.D.
[2024-01-03 18:17] VITALS: BP 119/75; PULSE 95; RESP 20; TEMP 36.5; O2SAT 99
[2024-01-03 19:29] LABS: Alanine Aminotransferase 20 U/L (6-50); Albumin Level 4.1 g/dL (3.5-5.1); Alkaline Phosphatase 97 U/L (38-126); Anion Gap 12 mmol/L (4-12); Aspartate Amino Transferase 31 U/L (17-59); Bilirubin,Total 0.7 mg/dL (0.2-1.3); Blood Urea Nitrogen 18 mg/dL (9-20); Calcium 8.9 mg/dL (8.4-10.2); Carbon Dioxide 26 mmol/L (22-30); Chloride 94 mmol/L (98-107); Estimated CRCL calculation 93 ml/min; Estimated Glomerular Filt Rate > 60; Glucose 102 mg/dL (65-110); Lipase 119 U/L (23-300); Sodium 132 mmol/L (137-145)
[2024-01-03 19:40] LABS: Troponin I < 0.012 ng/mL (0.000-0.034)
--- NOTE | 2024-01-03 21:41 | ECG_ITS ---
Test Date: 2024-01-03 21:54:34 Measurements Intervals [place] Rate: 99 P: 72 CA: 138 QRS: 17 QRSD: 81 T: 72 QT: 344 QTc: 442 Interpretive Statements SINUS RHYTHM WITH FREQUENT VENTRICULAR PREMATURE COMPLEXES POSSIBLE LEFT ATRIAL ENLARGEMENT [-0.1mV P WAVE IN V1/V2] NONSPECIFIC ST SEGMENT ABNORMALITY ABNORMAL RHYTHM ECG Compared to ECG 01/03/2024 18:18:35 NO SIGNIFICANT DIFFERENCE Electronically Signed On 01-04-2024 09:30:51 CDT by Emeka Alcala M.D.
[2024-01-03 22:14] VITALS: BP 153/74; PULSE 70; RESP 18; TEMP 36.7; O2SAT 100
[2024-01-03 22:20] LABS: Basophils Percent Auto 0.4 % (0.2-1.2); Eosinophils Absolute Auto 0.3 K/mm3 (0-0.3); Eosinophils Percent Auto 3.3 % (0-4.4); Hematocrit 47.4 % (42.0-52.0); Immature Granulocyte Absolute 0.07 K/mm3 (0.00-0.031); Immature Granulocyte Percent A 0.9 % (0-0.5); Lymphocytes Absolute Auto 1.11 K/mm3 (0.9-3.2); Lymphocytes Percent Auto 13.6 % (18.3-44.2); Mean Corpuscular HGB Conc 33.8 g/dl (32-36); Mean Corpuscular Hemoglobin 31.7 pg (26-34); Monocytes Absolute Auto 0.8 K/mm3 (0.1-0.6); Monocytes Percent Auto 10.1 % (2.6-8.5); Neutrophils Absolute Auto 5.8 K/mm3 (1.3-6.7); Neutrophils Percent Auto 71.7 % (45.5-73.1); Platelet Count Result 204 k/mm3 (150-375); Red Blood Count 5.04 M/mm3 (4.6-6.20); Red Cell Distribution Width 15.4 % (11.5-14.5); White Blood Count 8.1 K/mm3 (4.5-10.0)
[2024-01-03 22:35] LABS: INR 1.5; Partial Thromboplastin Time 31.7 Seconds (22.3-36.8); Prothrombin Time 18.4 Seconds (11.1-14.7)
[2024-01-03 22:43] LABS: Troponin I < 0.012 ng/mL (0.000-0.034)
[2024-01-04] VITALS (25 sets, daily range): BP systolic 113–154; BP diastolic 73–95; PULSE 92–122; RESP 12–20; TEMP 36–36.6; O2SAT 92–98; BMI 25.7
--- NOTE | 2024-01-04 03:45 | ED.CHESTPAIN ---
HPI - Chest Pain General Chief Complaint: Chest Pain Stated Complaint: chest pain Time Seen by Provider: 01/04/24 03:43 Source: patient and family Limitations: no limitations History of Present Illness HPI narrative: Patient presents with report of chest pain that has become constant though is worse with laughing or coughing. Also shortness of breath. No fevers. History of lung cancer and COPD. FOrmer smoker (quit 18 years ago). HIs oncologist thought he might be having a COPD flare and prescribed him a steroid course which he completed. Cough has been dry, non-productive and painful; no hemoptysis. Has had PNA 2x in the last few years. History of HTN and HLD, on meds for both. No prior UT, CVA, DM, TIA. Father was 28 yo when he of either a blood clot or UT. History of DVT , maintained on Xarelto because of cancer diagnosis, Xarelto 20mg QAM. No dizziness, syncope, nauesa, vomiting. Being treated for lung cancer with radiation, he finished his last treatment on 12/17/23. Related Data Home Medications Medication Instructions Recorded Confirmed albuterol sulfate 90 mcg/actuation 1 inhalation inhalation Q4H PRN 05/27/19 01/04/24 aerosol inhaler (Ventolin HFA) Wheezing multivitamin (Multiple Vitamins 1 tablet PO DAILY 05/27/19 01/04/24 tablet) rivaroxaban 20 mg tablet (Xarelto) 20 mg PO DAILY 05/27/19 01/04/24 amlodipine 5 mg tablet 10 mg PO HS 06/11/22 01/04/24 atenolol 100 mg tablet 100 mg PO DAILY 06/11/22 01/04/24 ipratropium 0.5 mg-albuterol 3 mg 3 ml inhalation Q6H PRN Wheezing 06/11/22 01/04/24 (2.5 mg base)/3 mL nebulization soln pantoprazole 20 mg tablet,delayed 40 mg PO DAILY 07/03/22 01/04/24 release (Protonix) simvastatin 20 mg tablet 20 mg PO QAM 07/03/22 01/04/24 dextromethorphan-guaifenesin 30 1 tab PO BID PRN cough 09/28/23 01/04/24 mg-600 mg tablet extended [id number] hr (Mucinex DM) Allergies Allergy/AdvReac Type Severity Reaction Status Date / Time No Known Allergies Allergy Verified 01/04/24 10:33 PMFSH Past Medical History Medical History COPD exacerbation History of DVT (deep vein thrombosis) L LE (chronic swelling in extremity) History of prostate cancer Hyperlipidemia Hypertension Pneumonia Sleep apnea Thoracic aortic aneurysm without rupture Surgical History Surgical History (Updated 12/17/23 @ 12:09 by Oscar Maria MD) H/O cataract extraction H/O foot surgery Family History Family History Mother Family history of lung cancer Father Acute myocardial infarction VTE (venous thromboembolism) Social History Social History Social History: The patient lives at home with his who is the durable power title attorney for healthcare. If she cannot be durable power title attorney his daughters will be. The patient has 2 children. 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 Patient is a former smoker. He denies any alcohol marijuana or illicit drugs. Code status full code Smoking packs per day: 3 Smoking cigarettes per day: 60.0 Years smoked: 40 Smoking pack-years: 120.00 Smoking status: Former smoker Tobacco type: cigarettes Second hand tobacco smoke exposure: No Smoking end date: 05/20/05 Alcohol intake: current Drinks per week: 14 Substance use: never Do You Feel Safe in your Home?: Yes Lack of Transportation: No Lack of Food: Never True Current Housing: I Have Housing Concerned About Future Housing: No Difficulty Paying Gas/Electric Bills: No Difficulty Paying for Meds: No Currently Unemployed: No Education: High School Diploma/GED Difficulty w/ Childcare or Family Care: No Spiritual care concerns: No Exam Narrative: GENERAL: Well-appearing, well-nourished, and in no acute distress. HEAD: Normocephalic, atraumatic. EYES: Non
--- NOTE | 2024-01-04 04:16 | ECG_ITS ---
Test Date: 2024-01-04 04:21:25 Measurements Intervals [place] Rate: 98 P: 72 [place]: 137 QRS: 21 QRSD: 90 T: 71 QT: 353 QTc: 452 Interpretive Statements SINUS RHYTHM WITH OCCASIONAL SUPRAVENTRICULAR PREMATURE COMPLEXES POSSIBLE LEFT ATRIAL ENLARGEMENT [-0.1mV P-WAVE IN V1/V2] NONSPECIFIC ST SEGMENT ABNORMALITY ABNORMAL ECG Compared to ECG 01/03/2024 21:54:34 NO CHANGE OTHER THAN PVCS ARE NOT DEMONSTRATED Electronically Signed On 01-04-2024 09:39:15 CDT by Emeka Alcala M.D.
[2024-01-04 04:18] LABS: NT Pro B Type Natriuretic Pept 383 pg/mL (19.9-100)
[2024-01-04] MEDS: MAGNESIUM SULF 1 GM/D5W 100 ML 1 GM/100 ML BAG IVPB (04:28)
[2024-01-04] MEDS: predniSONE 20 MG TABLET 60 MG PO (04:28)
[2024-01-04] MEDS: AZITHROMYCIN 500 MG/NS 250 ML 500 MG/250 ML BAG 250 MG IVPB (04:29)
[2024-01-04 04:39] LABS: D Dimer 1.75 ug/mL (<0.48)
[2024-01-04] MEDS: IPRATROPIUM 0.5 MG/ALBUTEROL SULFATE 2.5 MG AMPUL.NEB 3 ML INHALATION ×3 (04:44→20:55)
[2024-01-04] MEDS: ALBUTEROL SULFATE NEB 2.5 MG/3 ML INH INHALATION ×4 (04:44→20:56)
[2024-01-04 04:48] LABS: Troponin I < 0.012 ng/mL (0.000-0.034)
[2024-01-04 04:50] LABS: Base Excess ABG 1.2 mEq/l (+/-2.0); Device NASAL CANNULA; Fractional Inspired Oxygen 24 %; HCO3 ABG 26.8 mEq/l (22.0-26.0); Modified Allen's Test Pass; Oxygen Content ABG 19.5 %vol (16.0-22.0); Oxygen Saturation ABG 89.9 % (95.0-100.0); Oxyhemoglobin 88.9 % THb (90.0-100.0); PCO2 ABG 45.8 mmHg (35.0-45.0); PO2 ABG 58.6 mmHg (80.0-100.0); PO2 FiO2 Ratio Arterial Blood 2.44 %; Site Drawn RIGHT RADIAL; Total Hemoglobin 15.6 g/dL (12.0-18.0); pH ABG 7.385 (7.350-7.450)
[2024-01-04 04:55] LABS: Influenza A QL RT-PCR Negative (Negative); Influenza B QL RT-PCR Negative (Negative); RSV RNA, RT-PCR Negative (Negative); SARS-CoV-2 RNA PCR Negative (Negative)
[2024-01-04] MEDS: MORPHINE SULFATE (*CRX) 4 MG/ML INJ IV PUSH (05:43)
[2024-01-04] MEDS: LORazepam INJ (*CRX) 2 MG/ML VIAL 1 MG IV PUSH (06:25)
[2024-01-04] MEDS: HYDROmorphone HCL INJ (*CRX) 1 MG/ML SYR IV PUSH (06:56)
--- NOTE | 2024-01-04 10:09 | PC.NURSE ---
This patient, Donta Collins, was admitted to 2 Medical Room 242-. Patient/family oriented to hospital policies and general routines including ID bracelet, bed and alarms, visiting hours, pain management, procedures, bathroom and other care routines, personal items, smoking policy, room service/diet, and visiting hours. Information on how to activate the Rapid Response Team has been discussed. Patient/Family are encouraged to report perceived risks to care and to ask questions if they do not understand what they are told or what they should do.
--- NOTE | 2024-01-04 15:55 | PM.IMHP ---
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 He received SBRT within the past 2 weeks. About 3 days prior he began to have pain deep inside his left lower lung especially when he took a deep breath, his cough has been the same as his usual. He did receive prednisone from his radiation oncologist but the symptoms did not go way. In the ER the patient was observed to be wheezing. Chest CTA demonstrated severe emphysema, a 1.9 x 1.6 cm mass in the superior segment of the left lower lobe, fusiform aneurysm. Request for admission due to patient's work of breathing. Review of Systems Review of Systems: All systems reviewed & are unremarkable except as noted in HPI and below (Subject) [facility] Past Medical History Medical History COPD exacerbation History of DVT (deep vein thrombosis) History of prostate cancer Hyperlipidemia Hypertension Sleep apnea Thoracic aortic aneurysm without rupture Surgical History Surgical History H/O cataract extraction H/O foot surgery Family History Family History Mother Family history of lung cancer Social History Social History Social History: The patient lives at home with his who is the durable power commercial attorney for healthcare. If she cannot be durable power commercial attorney his daughters will be. The patient has 2 children. 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 Patient is a former smoker. He denies any alcohol marijuana or illicit drugs. Code status full code Smoking packs per day: 3 Smoking cigarettes per day: 60.0 Years smoked: 40 Smoking pack-years: 120.00 Smoking status: Former smoker Tobacco type: cigarettes Second hand tobacco smoke exposure: No Smoking end date: 05/20/05 Alcohol intake: current Drinks per week: 14 Substance use: never Do You Feel Safe in your Home?: Yes Lack of Transportation: No Lack of Food: Never True Current Housing: I Have Housing Concerned About Future Housing: No Difficulty Paying Gas/Electric Bills: No Difficulty Paying for Meds: No Currently Unemployed: No Education: High School Diploma/GED Difficulty w/ Childcare or Family Care: No Spiritual care concerns: No Meds Home Medications and Allergies Home Medications Medication Instructions Recorded Confirmed Type albuterol sulfate 90 mcg/actuation 1 inhalation inhalation Q4H PRN 05/27/19 01/04/24 History aerosol inhaler (Ventolin HFA) Wheezing multivitamin (Multiple Vitamins 1 tablet PO DAILY 05/27/19 01/04/24 History tablet) rivaroxaban 20 mg tablet (Xarelto) 20 mg PO DAILY 05/27/19 01/04/24 History budesonide 160 mcg-glycopyr 9 2 inh inhalation QAM AND QPM #10.7 05/26/21 01/04/24 Rx mcg-formot 4.8 mcg/actuation HFA grams inhaler (Breztri Aerosphere) acetaminophen 325 mg tablet (Mapap 650 mg PO Q4H PRN Mild Pain (1-3) 05/18/22 01/04/24 Rx (acetaminophen)) Or Fever #30 tabs oxygen #1 ea 05/25/22 01/04/24 Rx amlodipine 5 mg tablet 10 mg PO HS 06/11/22 01/04/24 History atenolol 100 mg tablet 100 mg PO DAILY 06/11/22 01/04/24 History ipratropium 0.5 mg-albuterol 3 mg 3 ml inhalation Q6H PRN Wheezing 06/11/22 01/04/24 History (2.5 mg base)/3 mL nebulization soln pantoprazole 20 mg tablet,delayed 40 mg PO DAILY 07/03/22 01/04/24 History release (Protonix) simvastatin 20 mg tablet 20 mg PO QAM
[2024-01-04] MEDS: RIVAROXABAN 20 MG TABLET PO (17:24)
[2024-01-04] MEDS: guaiFENesin 12 HR 600 MG TABCR 1200 MG PO (20:52)
[2024-01-04] MEDS: amLODIPine BESYLATE 10 MG TABLET PO (20:52)
[2024-01-04] MEDS: methylPREDNISolone SOD SUCC 125 MG VIAL 80 MG IV PUSH (20:52)
[2024-01-05] VITALS (10 sets, daily range): BP systolic 123; BP diastolic 81; PULSE 88–101; RESP 16–18; TEMP 36.6; O2SAT 97
[2024-01-05] MEDS: ALBUTEROL SULFATE NEB 2.5 MG/3 ML INH INHALATION ×2 (02:18→08:51)
[2024-01-05] MEDS: IPRATROPIUM 0.5 MG/ALBUTEROL SULFATE 2.5 MG AMPUL.NEB 3 ML INHALATION ×2 (02:18→08:51)
[2024-01-05] MEDS: methylPREDNISolone SOD SUCC 125 MG VIAL 80 MG IV PUSH (06:35)
[2024-01-05] MEDS: guaiFENesin 12 HR 600 MG TABCR 1200 MG PO (08:50)
[2024-01-05] MEDS: SIMVASTATIN 20 MG TABLET PO (08:51)
[2024-01-05] MEDS: atenoloL 50 MG TABLET 100 MG PO (08:51)
[2024-01-05] MEDS: PANTOPRAZOLE 40 MG TABLET PO (08:51)
[2024-01-05] MEDS: MULTIVITAMINS THERAPEUTIC TAB (*BKC) 1 TABLET PO (08:51)
[2024-01-05] MEDS: FLUTICASONE/UMECLIDIN/VILANTER 100-62.5-25 MCG ELLIPTA 1 PUFF INHALATION (08:52)
--- NOTE | 2024-01-05 10:08 | PM.DS ---
DS: Admitting Diagnosis Discharge Date 01/05/2024 Admitting Diagnosis Radiation pneumonitis DS: Discharge Diagnosis Discharge Diagnosis (1) Radiation pneumonitis: Code(s): J70.0 - Acute pulmonary manifestations due to radiation Status: Acute (2) COPD exacerbation: Code(s): J44.1 - Chronic obstructive pulmonary disease with (acute) exacerbation Status: Acute DS: Summary Hospital Course Hospital Course: This is a pleasant 73-year-old male with a history of prior tobacco abuse, history of left DVT, aortic aneurysm on Xarelto, chronic respiratory failure on 2 L nasal cannula, history of prostate cancer status post radiation, COPD, 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 He received SBRT within the past 2 weeks. About 3 days prior he began to have pain deep inside his left lower lung especially when he took a deep breath, his cough has been the same as his usual. He did receive prednisone from his radiation oncologist but the symptoms did not go way. In the ER the patient was observed to be wheezing. Chest CTA demonstrated severe emphysema, a 1.9 x 1.6 cm mass in the superior segment of the left lower lobe, fusiform aneurysm. Request for admission due to patient's work of breathing. ----- Evaluating the patient in room 242 he breathes comfortably. Reports he feels almost already back to his baseline. His cough has subsided. He still fears coughing because the pain on the left lower lobe. Continue Solu-Medrol, scheduled bronchodilators, oxygen/noninvasive ventilation increase as needed. Acetaminophen, [place], morphine p.r.n. to help with his radiation pneumonitis pain. He wishes to be DNR. Continue Xarelto. If he is stable in the morning he can go home. ----- On 01/05/2024 the patient breathing has returned to baseline. Still has cough with pain at the left lower lung field but it is improved. He feels ready to go home, the patient has high concern about returning to the ER as it was a 9 hour wait this time. Advised the patient to follow-up with Dr. Childers, he will give the office a call. He is done with SBRT. Will discharge him another 5 days of prednisone 50 mg p.o. q.day with 1 refill. Advised the patient if he has used a refill to call his PCP or Dr. Childers for further proper analysis. Risks versus benefits of medication discussed. He will continue Breztri, albuterol rescue inhaler, DuoNebs p.r.n., 2 L oxygen via nasal cannula. He elected to be DNR during this admission. Stable for discharge to home on 01/05/2024 Time Spent with Patient Time attestation: Total time spent providing and/or coordinating discharge services: Exam Const: General: comfortable and no acute distress Eyes: Pupils: Equal, round and reactive pupils present Neck: Neck: supple Resp: Effort & Inspection: normal respiratory effort Other: Decreased breath sounds, no adventitious sounds Cardio: Rate: regular rate Rhythm: regular rhythm Heart sounds: no gallops, no murmurs and no rubs GI: GI Palp: Yes Soft to palpation and No Tenderness to palpation present (GI) Other: Mild distension, protuberant abdomen Extrem: General: no edema Discharge Plan Discharge Attending physician on discharge: Glenis Lindo Discharging Clinician: Glenis Lindo Patient Disposition: Home, Self-Care Activity: may shower Diet: as tolerated Patient Instructions: Antibiotic Form, Rivaroxaban (By mouth) Stand Alone Forms: General Discharge Information Follow-up/Referrals: Ginna Childers MD [Physician] - Call for Appointment [facility],Martin Whaley MD [Primary Care Provider] - Call for Appointment Discharge Medications: New prednisone 50 mg tablet 50 mg PO DAILY 5 Days Qty: 5 1RF Continued multivitamin [Multiple Vitamins] Tablet 1 tablet PO DAILY albuterol sulfate [Ventolin HFA] 90 mcg/actuation HFA aerosol i
== END 2024-01-05 11:33 | disposition home or self-care (01) ==
LOC: ANHED 01-04 03:43 → ANH2MED 01-04 09:28
PROVIDERS: Emergency Medicine; Admitting Provider General Practice; Emergency Provider Student in an Organized Health Care Education/Training Program; PCP Internal Medicine; Visit Provider General Practice
DX: J70.0 Acute pulmonary manifestations due to radiation (principal); J44.1 Chronic obstructive pulmonary disease with (acute) exacerbation; C34.90 Malignant neoplasm of unspecified part of unspecified bronchus or lung; Z86.718 Personal history of other venous thrombosis and embolism; Z79.01 Long term (current) use of anticoagulants; Z87.891 Personal history of nicotine dependence; J96.10 Chronic respiratory failure, unspecified whether with hypoxia or hypercapnia; Z99.81 Dependence on supplemental oxygen; Z85.46 Personal history of malignant neoplasm of prostate; I10 Essential (primary) hypertension; E78.5 Hyperlipidemia, unspecified; Z20.822 Contact with and (suspected) exposure to COVID-19
CPT/HCPCS: 36415; 36600; 71046; 71275; 80053; 82805; 83690; 83880; 84484; 85025; 85380; 85610; 85730; 87637; 93005; 94640; 94669; 96365; 96366; 96368; 96375; 96376; 99285; A9270; G0378; J0456; J1170; J2060; J2270; J2919; J3475; J7512; Q9967

== ENCOUNTER 2024-01-23 09:56 | Outpatient (CLI) | payer MEDICARE, OTHER, SELFPAY ==
--- NOTE | ~2024-01-23 | XR_ITS ---
EXAMINATION: XR ribs LT 2V w CXR 2V DATE: 01/23/2024 10:23 INDICATION: Chest pain, unspecified. TECHNIQUE: Frontal and lateral views of the chest and 2 views on 3 radiographs of the left ribs were obtained. COMPARISON: Chest 2 views 01/03/2024, chest CT 01/04/2024 FINDINGS: CHEST TWO VIEWS: There are lucencies and interstitial opacities in the lungs, consistent with emphyse ma. There is mild atelectasis in left lower lung zone. There is a nodule in superior segment left low er lobe. No pleural effusion or pneumothorax. The heart size is normal. There is a fracture deformity of left seventh rib. There is a burst fracture of T7. There is mild chronic anterior wedging of mult iple lower thoracic vertebral bodies. LEFT RIBS: There is an old healed fracture deformity of left seventh rib. IMPRESSION: 1. T7 burst fracture, worsened from 01/04/2024. 2. Emphysema. 3. Mild atelectasis in left lower lung zone. Reviewed, dictated and finalized at location A.
== END 2024-01-23 09:57 | disposition home or self-care (01) ==
LOC: ANHIMG 10:02
PROVIDERS: PCP Internal Medicine; Visit Provider Radiology Radiation Oncology
DX: R07.9 Chest pain, unspecified (principal); J43.9 Emphysema, unspecified; S22.061D Stable burst fracture of T7-T8 vertebra, subsequent encounter for fracture with routine healing; X58.XXXD Exposure to other specified factors, subsequent encounter
CPT/HCPCS: 71046; 71100

== ENCOUNTER 2024-01-28 08:03 | Outpatient (CLI) | payer MEDICARE, OTHER, SELFPAY ==
--- NOTE | ~2024-01-28 | XR_ITS ---
A VIEWS THORACIC SPINE Ordering provider: Oscar Maria MD History: . Stable burst fracture of T7-T8 vertebra,EVAL . Comparison: None. FINDINGS: VERTEBRAL BODIES: Loss of height of T7 and T11 more prominent in T7 with about 80% loss of height. Th kaycee may be acute or chronic. Clinical correlation and if warranted MRI evaluation advised. Degenerati ve changes of the spine. Mild dextroscoliosis. DISK SPACES: Narrowing at multiple levels. SOFT TISSUES: Aortic calcifications. IMPRESSION: Indeterminate age Compression fractures of T7 and T11. Clinical correlation and if warranted MRI is a dvised. Reviewed, dictated and finalized at location A. IMPRESSION: Indeterminate age Compression fractures of T7 and T11. Clinical correlation and if warranted MRI is advised.
--- NOTE | ~2024-01-28 | CT_ITS ---
EXAMINATION:CT diagnostic chest w con DATE: 01/28/2024 08:49 INDICATION: Malignant neoplasm of left lung. TECHNIQUE: Computed tomography (CT) of the chest was performed with 75 mL Omnipaque 350 intravenous c ontrast. Automated exposure control and iterative reconstruction technique were employed. The dose-le ngth product (DLP) was 206.11 mGy-cm. COMPARISON: Chest CT 01/04/2024, 03/04/23 FINDINGS: There is severe emphysema. There is a 7 mm nodule in right lower lobe that measured 5 mm on 03/04/2023. There is a 5 mm nodule in right lower lobe, new from 01/04/24, likely benign. There is a 1.9 cm nodule in left lower lobe, stable from 01/04/2024. There is mild atelectasis and scarring bilat erally. There are trace pleural effusions. The heart size is normal. There are coronary artery calcif ications. No pericardial effusion. The gallbladder is distended, likely secondary to fasting. There i s a 4.2 cm fusiform aneurysm of the suprarenal aorta. Partially visualized is a 2.5 cm subcutaneous c yst in left upper back, likely a sebaceous cyst. There is mild thoracic spondylosis. There is a burst fracture of T7 with 3/5 loss of height and retropulsion of bone 2 mm into central spinal canal. Ther e is mild chronic anterior wedging of multiple lower thoracic vertebral bodies. IMPRESSION: 1. 1.9 cm nodule in left lung lower lobe, increased from 1.1 cm on 03/04/2023, consistent with primar y bronchogenic carcinoma. 2. 7 mm right lower lobe pulmonary nodule that measured 5 mm on 03/04/2023 suspicious for primary bro nchogenic carcinoma. 3. Severe emphysema. 4. T7 burst fracture, worsened from 01/04/2024. 5. 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 Reviewed, dictated and finalized at location A. IMPRESSION: 1. 1.9 cm nodule in left lung lower lobe, increased from 1.1 cm on 03/04/2023, consistent with primary bronchogenic carcinoma. 2. 7 mm right lower lobe pulmonary nodule that measured 5 mm on 03/04/2023 susp icious for primary bronchogenic carcinoma. 3. Severe emphysema. 4. T7 burst fracture, worsened from 01/04/2024. 5. 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
== END 2024-01-28 08:04 | disposition home or self-care (01) ==
PROVIDERS: PCP Internal Medicine; Visit Provider Internal Medicine Hematology & Oncology
DX: C34.92 Malignant neoplasm of unspecified part of left bronchus or lung (principal); S22.061A Stable burst fracture of T7-T8 vertebra, initial encounter for closed fracture; X58.XXXA Exposure to other specified factors, initial encounter; I71.43 Infrarenal abdominal aortic aneurysm, without rupture; R91.1 Solitary pulmonary nodule
CPT/HCPCS: 36415; 71260; 72072; 80047; 85025; 99212; G0463; Q9967

== ENCOUNTER 2024-01-28 13:02 | Outpatient (CLI) | payer MEDICARE, OTHER, SELFPAY ==
[2024-01-28 13:17] LABS: Basophils Percent Auto 0.4 % (0.2-1.2); Eosinophils Absolute Auto 0.2 K/mm3 (0-0.3); Eosinophils Percent Auto 3.1 % (0-4.4); Hematocrit 40.1 % (42.0-52.0); Hemoglobin 13.2 g/dL (14.0-18.0); Immature Granulocyte Absolute 0.03 K/mm3 (0.00-0.031); Immature Granulocyte Percent A 0.6 % (0-0.5); Lymphocytes Absolute Auto 1.04 K/mm3 (0.9-3.2); Lymphocytes Percent Auto 21.8 % (18.3-44.2); Mean Corpuscular HGB Conc 32.9 g/dl (32-36); Mean Corpuscular Hemoglobin 31.4 pg (26-34); Mean Corpuscular Volume 95.5 fl (80-100); Mean Platelet Volume 9.2 fl (7.4-10.4); Monocytes Absolute Auto 0.8 K/mm3 (0.1-0.6); Monocytes Percent Auto 16.7 % (2.6-8.5); Neutrophils Absolute Auto 2.7 K/mm3 (1.3-6.7); Neutrophils Percent Auto 57.4 % (45.5-73.1); Platelet Count Result 173 k/mm3 (150-375); Red Cell Distribution Width 15.5 % (11.5-14.5); White Blood Count 4.8 K/mm3 (4.5-10.0)
[2024-01-28 13:20] LABS: Blood Urea Nitrogen 11 mg/dL (8-26); Carbon Dioxide 31 mmol/L (22-30); Chloride 91 mmol/L (98-109); Estimated Glomerular Filt Rate > 60; Glucose 112 mg/dL (70-105); Ionized Calcium (POC) 1.07 mmol/L (1.11-1.31); Potassium 4.2 mmol/L (3.5-4.9); Sodium 133 mmol/L (138-146)
== END 2024-01-28 13:03 | disposition home or self-care (01) ==
LOC: ANHLAB 13:05
PROVIDERS: PCP Internal Medicine; Visit Provider Internal Medicine Hematology & Oncology
DX: C34.92 Malignant neoplasm of unspecified part of left bronchus or lung (principal)
CPT/HCPCS: 36415; 80047; 85025

== ENCOUNTER 2024-03-02 09:13 | Outpatient (CLI) | payer MEDICARE, OTHER, SELFPAY ==
--- NOTE | ~2024-03-02 | XR_ITS ---
3 VIEWS THORACIC SPINE Ordering provider: Alina Laws MD History: . S22.000A - Wedge compression fracture of unspecified thor... . Comparison: January 28, 2024 FINDINGS: VERTEBRAL BODIES: Compression fracture is again demonstrated in T7 with no change. Mild loss of heigh t is seen in T11. Otherwise, Normal height and alignment. No visible new fracture or subluxation. Deg enerative changes of the spine. DISK SPACES: Normal. SOFT TISSUES: Aortic atherosclerotic changes. No, IMPRESSION: Compression fracture of T7 unchanged. No other acute osseous abnormality of the thoracic spine. No significant change from previous examination. Reviewed, dictated and finalized at location A.
== END 2024-03-02 09:14 | disposition home or self-care (01) ==
PROVIDERS: PCP Internal Medicine; Visit Provider Neurological Surgery
DX: S22.000A Wedge compression fracture of unspecified thoracic vertebra, initial encounter for closed fracture (principal); X58.XXXA Exposure to other specified factors, initial encounter
CPT/HCPCS: 72072

== ENCOUNTER 2024-04-12 19:44 | Inpatient (IN) | payer MEDICARE, OTHER, SELFPAY ==
--- NOTE | ~2024-04-12 | XR_ITS ---
XR chest 2V DATE: 04/12/2024 20:46 INDICATION: Shortness of breath TECHNIQUE: 2 views COMPARISON: 12/2023 2 view chest 01/04/2024 CTA chest 01/28/2024 CT chest FINDINGS: Bilateral hyperinflation consistent with COPD. There is patchy infiltrate and/or atelectasis in the left mid lung, obscuring somewhat the superior l e segment left lower lobe pulmonary mass. There is mild patchy infiltrate or atelectasis at the left lung base. A small nodular density in the right lower lung. No pleural effusion or pulmonary vascular congestion or pneumothorax. Normal heart size. IMPRESSION: Focal infiltrate or atelectasis in the left midlung, obscuring the superior segment left lower lobe pulmonary mass Mild infiltrate or atelectasis in the left lung base Small right lower lung nodular mass COPD Reviewed, dictated and finalized at location A. UITER
--- NOTE | ~2024-04-12 | CT_ITS ---
EXAMINATION: CTA chest PE protocol DATE: 04/13/2024 03:01 INDICATION: Difficulty breathing. TECHNIQUE: Computed tomography angiography (CTA) of the chest was performed with 100 mL Omnipaque-350 intravenous contrast timed to evaluate the pulmonary arteries. Coronal maximum intensity projection 3D-reconstructions were created by the technologist. Automated exposure control and iterative reconst ruction technique were employed. The dose-length product was 273.23 mGy-cm. COMPARISON: Chest CT 01/28/2024, 06/04/2023, 12/18/22 FINDINGS: There is severe emphysema. There are airspace opacities in left upper lobe and left lower l obe. There is a 1.7 cm nodule in left upper lobe. There is a 7 mm nodule in right lower lobe. There i s a trace left pleural effusion. The heart size is normal. No pericardial effusion. There is no pulmo nary embolus. 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 There is cortical th inning of the kidneys. There is severe cervical spondylosis and mild thoracic spondylosis. There is a burst fracture of T7 with 4/5 loss of height. IMPRESSION: 1. Stable 1.7 cm nodule in left lung upper lobe, consistent with primary bronchogenic carcinoma. 2. 7 mm nodule in right lung lower lobe, which measured 6 mm on 06/04/2023 and 5 mm on 12/18/22. This fi nding is suspicious for primary bronchogenic carcinoma. 3. Airspace opacities in left upper lobe and left lower lobe, consistent with pneumonia. 4. Severe emphysema. 5. T7 burst fracture, worsened from 01/28/2024. 6. 4.3 cm fusiform aneurysm is suprarenal abdominal aorta. 7. No pulmonary embolus. Reviewed, dictated and finalized at location A. 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 Stable 1.7 cm nodule in left lung upper lobe, consistent with primary bronch ogenic carcinoma. 2. 7 mm nodule in right lung lower lobe, which measured 6 mm on 06/04/2023 and 5 mm on 12/18/22. This finding is suspicious for primary bronchogenic carcinoma. 3. Airspace opacities in left upper lobe and left lower lobe, consistent with p neumonia. 4. Severe emphysema. 5. T7 burst fracture, worsened from 01/28/2024. 6. 4.3 cm fusiform aneurysm is suprarenal abdominal aorta. 7. No pulmonary embolus.
[2024-04-12 19:48] VITALS: BP 129/76; PULSE 112; RESP 20; TEMP 36.6; O2SAT 98
--- NOTE | 2024-04-12 19:49 | ECG_ITS ---
Test Date: 2024-04-12 20:04:43 Measurements Intervals [place] Rate: 109 P: 150 [place]: 133 QRS: -22 QRSD: 76 T: 149 QT: 327 QTc: 441 Interpretive Statements SINUS TACHYCARDIA POSSIBLE LEFT ATRIAL ENLARGEMENT DELAYED PRECORDIAL R/S TRANSITION LOW QRS VOLTAGE IN LIMB LEADS ST-T WAVE ABNORMALITY IN HIGH LATERAL LEADS- CONSIDER ISCHEMIA BASELINE ARTIFACT- I, III, AVR, AVL, AVF, V1-V2 ABNORMAL ECG Compared to ECG 01/04/2024 04:21:25 HEART RATE HAS INCREASED POSSIBLE ISCHEMIA NOW PRESENT Electronically Signed On 04-13-2024 06:17:42 SCANNING TECH by Sukhi Aguilera D.O.
[2024-04-12 20:04] LABS: Basophils Percent Auto 0.3 % (0.2-1.2); Eosinophils Absolute Auto 0.1 K/mm3 (0-0.3); Eosinophils Percent Auto 0.6 % (0-4.4); Hematocrit 44.2 % (42.0-52.0); Immature Granulocyte Absolute 0.03 K/mm3 (0.00-0.031); Immature Granulocyte Percent A 0.3 % (0-0.5); Lymphocytes Absolute Auto 1.37 K/mm3 (0.9-3.2); Lymphocytes Percent Auto 13.8 % (18.3-44.2); Mean Corpuscular HGB Conc 33.9 g/dl (32-36); Mean Corpuscular Volume 97.1 fl (80-100); Mean Platelet Volume 9.9 fl (7.4-10.4); Monocytes Percent Auto 9.6 % (2.6-8.5); Neutrophils Absolute Auto 7.5 K/mm3 (1.3-6.7); Neutrophils Percent Auto 75.4 % (45.5-73.1); Platelet Count Result 202 k/mm3 (150-375); Red Blood Count 4.55 M/mm3 (4.6-6.20); Red Cell Distribution Width 13.7 % (11.5-14.5); White Blood Count 9.9 K/mm3 (4.5-10.0)
[2024-04-12 20:14] LABS: Alanine Aminotransferase 15 U/L (6-50); Albumin Level 4.2 g/dL (3.5-5.1); Alkaline Phosphatase 108 U/L (38-126); Anion Gap 11 mmol/L (4-12); Aspartate Amino Transferase 28 U/L (17-59); Bilirubin,Total 0.8 mg/dL (0.2-1.3); Blood Urea Nitrogen 15 mg/dL (9-20); Calcium 9.3 mg/dL (8.4-10.2); Carbon Dioxide 29 mmol/L (22-30); Chloride 94 mmol/L (98-107); Estimated CRCL calculation 105 ml/min; Estimated Glomerular Filt Rate > 60; Glucose 107 mg/dL (65-110); Potassium 4.3 mmol/L (3.4-5.0); Sodium 134 mmol/L (137-145)
[2024-04-12 21:24] VITALS: O2SAT 100
[2024-04-12 21:27] VITALS: BP 123/78; PULSE 102; RESP 20; O2SAT 98
[2024-04-12 23:08] VITALS: BP 111/78; PULSE 106; RESP 20; O2SAT 98
[2024-04-12] MEDS: ALBUTEROL SULFATE NEB 2.5 MG/3 ML INH INHALATION (23:44)
[2024-04-12 23:45] VITALS: PULSE 100; RESP 20
--- NOTE | 2024-04-12 23:56 | PC.NURSE ---
Report received from KIRT García. Assumed care of patient at this time.
[2024-04-13] VITALS (37 sets, daily range): BP systolic 105–136; BP diastolic 62–89; PULSE 79–123; RESP 18–112; TEMP 35.9–36.6; O2SAT 94–100
[2024-04-13] MEDS: methylPREDNISolone SOD SUCC 125 MG VIAL IV PUSH (01:25)
[2024-04-13] MEDS: MAGNESIUM SULF 2 GM/WATER 50ML 2 GM/50 ML BAG IVPB (01:29)
[2024-04-13] MEDS: ALBUTEROL SULFATE NEB 2.5 MG/3 ML INH 10 MG INHALATION (01:33)
[2024-04-13] MEDS: IPRATROPIUM BR 0.02% INH SOLN 0.5 MG/2.5 ML VIAL 1 MG INHALATION (01:34)
--- NOTE | 2024-04-13 02:04 | ED.SOB ---
HPI - SOB/Dyspnea General Chief Complaint: Shortness of Breath/Dyspnea Stated Complaint: cough x2 weeks Time Seen by Provider: 04/13/24 00:55 History of Present Illness HPI Narrative: 73-year-old male with a past medical history including COPD on home oxygen 2 L as needed. He was has a history of recently diagnosed non-small cell lung cancer, previous DVT remote past presently on Xarelto he also has a history of hypertension hyperlipidemia. Patient presents to the emergency department today with a chief complaint of worsening dyspnea over the last few weeks. Patient states he has been having to use oxygen more at home including now 247 rather than as needed. He states that he was feeling so breathless at home today that he want to come to the hospital for evaluation. He has been using his nebulizer treatments at home and not having any improvement in symptoms. He thinks he might have a pneumonia as he has been having a nonproductive cough these last few weeks as well. Denies any chest pain or discomfort but states that is difficult to breathe. The leg swelling or calf pain. No fever, chills, headache, vision change. He was otherwise in his normal state of health and underwent recent radiation therapy in November for his newly diagnosed lung cancer. Follow-up CT scan scheduled for next month. His Oncologist is here at [facility]. Related Data Home Medications Medication Instructions Recorded Confirmed albuterol sulfate 90 mcg/actuation 1 inhalation inhalation Q4H PRN 05/27/19 04/13/24 aerosol inhaler (Ventolin HFA) Wheezing multivitamin (Multiple Vitamins 1 tablet PO DAILY 05/27/19 04/13/24 tablet) rivaroxaban 20 mg tablet (Xarelto) 20 mg PO QPM 05/27/19 04/13/24 amlodipine 5 mg tablet 5 mg PO QPM 06/11/22 04/13/24 atenolol 100 mg tablet 100 mg PO DAILY 06/11/22 04/13/24 ipratropium 0.5 mg-albuterol 3 mg 3 ml inhalation Q6H PRN Wheezing 06/11/22 04/13/24 (2.5 mg base)/3 mL nebulization soln pantoprazole 20 mg tablet,delayed 40 mg PO DAILY 07/03/22 04/13/24 release (Protonix) simvastatin 20 mg tablet 20 mg PO QAM 07/03/22 04/13/24 calcium carb-vitamin D3 ER 600 mg 1 tablet PO DAILY 04/13/24 04/13/24 (1,500 mg)-500 unit tablet,ER 24 hr guaifenesin 1,200 mg tablet, 1,200 mg PO BID 04/13/24 04/13/24 extended release 12 hr (Mucinex) Allergies Allergy/AdvReac Type Severity Reaction Status Date / Time No Known Allergies Allergy Verified 03/05/24 16:04 Review of Systems Review of Systems: as reviewed above in HPI [facility] Past Medical History Medical History COPD exacerbation History of DVT (deep vein thrombosis) L LE (chronic swelling in extremity) History of prostate cancer Hyperlipidemia Hypertension Pneumonia Sleep apnea Thoracic aortic aneurysm without rupture Surgical History Surgical History H/O cataract extraction H/O foot surgery Family History Family History Mother Family history of lung cancer Father Acute myocardial infarction VTE (venous thromboembolism) Social History Social History Social History: The patient lives at home with his who is the durable power assistant district attorney for healthcare. If she cannot be durable power assistant district attorney his daughters will be. The patient has 2 children. 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 Patient is a former smoker. He denies any alcohol marijuana or illicit drugs. Code status full code Smoking packs per day: 3 Smoking cigarettes per day: 60.0 Years smoked: 40 Smoking pack-years: 120.00 Smoking status: Former smoker Tobacco type: cigarettes Second hand tobacco smoke exposure: No Smoking end date: 05/20/05 Alcohol intake: current Drinks per week: 14 Substance use: never Do You Feel Safe in your Home?: Yes Lack of Transportation: No Lack of Food: Never True Current Housing: I Have Housing Concerned About Future Housing: No Difficulty Paying Gas/Electric Bills: No Difficulty Paying for Meds: No Currently Unemployed: No Education: High School Diploma/GED Difficulty w/ Childcare or Family Care: No Spiritual care concerns: No Exam Narrative: GENERAL: [Well-appearing, well-nourished, and in no acute distress.] HEAD: [Normocephalic, atraumatic.] EYES: [PERRLA and EOMI.] ENT: Nares clear, no rhinorrhea or epistaxis. Mucous membranes moist. NECK: Supple. CHEST: diminished breath sounds in the left lung base with prolonged expiratory phase, scattered wheezing bilaterally in the bases more on the left compared to the right. No tenderness with palpation of the chest wall. speaks in complete sentences. Not in any acute respiratory distress. HEART: [Regular rate and rhythm]. No murmur heard. [Normal peripheral pulses.] ABDOMEN: [Soft, nondistended], [nontender], [No rigidity or guarding] EXTREMITIES: Normal range of motion. [No edema.] SKIN: Warm, dry, no rash. NEURO: [No focal deficits]. Alert and oriented [x3.] PSYCH: [Normal mood and affect.] Course Vital Signs Vital signs: Vital Signs Temperature 36.6 C 04/12/24 19:48 Pulse Rate 112 H 04/12/24 19:48 Respiratory Rate 20 04/12/24 19:48 Blood Pressure 129/76 04/12/24 19:48 Pulse Oximetry 98 04/12/24 19:48 Temperature 36.5 C 04/13/24 06:00 Pulse Rate 116 H 04/13/24 06:00 Respiratory Rate 18 04/13/24 06:00 Blood Pressure 128/76 04/13/24 06:00 Pulse Oximetry 96 04/13/24 06:00 Oxygen Delivery Nasal Cannula 04/13/24 05:16 Oxygen Flow Rate 3 04/13/24 05:16 MDM - SOB/Dyspnea MDM Narrative Medical decision making narrative: 73-year-old male with complex medical history including recently diagnosed lung cancer. remote history of DVT on Xarelto, history of thoracic aortic aneurysm, hypertension, hyperlipidemia, COPD with as needed home oxygen at home. He states he has been having increased oxygen requirements and now using oxygen 247 despite no relief from nebulizer treatments for his COPD. He feels short of breath and denies any chest pain at this time. No fever chills. He otherwise appears well not any acute distress but is requiring additional oxygen supplementation and slightly tachycardic here on initial vitals with a pulse ox of 112. No blood pressure concerns, fever, and he is saturating well 98% saturation on nasal cannula 4 L at this time. differential diagnosis includes COPD exacerbation, exacerbation of patient's known lung cancer, metastasis, less likely ACS or thromboembolic event but he is high risk and has elevated Wells criteria despite being on Xarelto. Will treat him symptomatically for COPD exacerbation given his prolonged expiratory phase and scattered wheezing appreciated auscultation with increasing oxygen requirements. He was given continuous albuterol and Atrovent as well as Solu-Medrol, magnesium sulfate. The CT angiography scan of his chest was used to assess for any kind of worsening cancer versus thrombotic burden such as a PE. cardiac workup was initiated including EKG, CBC, CMP, coags, troponin. Patient was frequent re-evaluated had improvement in his respiratory efforts and lung sounds after our treatments here with the continuous nebulizer therapy and magnesium/ steroids. Patient states he felt significant improved and had some down titration of his nasal cannula down the 3 L. patient's workup revealed no leukocytosis or anemia. Normal platelets. electrolyte profile largely unremarkable with normal potassium, normal renal function panel. Normal glucose. Unremarkable CMP. Patient's chest x-ray was independently reviewed by myself and also interpreted by radiology. There is some atelectasis versus infiltrate of the left mid lung as well as the obscuring overlying left lower lung mass, Emphysematous lungs with bilateral hyperinflation is seen. CT scan of the chest with angiography profile showed no pulmonary embolism, stable fusiform aneurysm of the abdominal aorta, airspace opacities of the left upper left lower lung consistent with pneumonia multi focally. Bronchogenic carcinoma suspicious nodules seen which patient is aware of. He is already radiation therapy for this. Antibiotics were ordered for his pneumonia including Rocephin and doxycycline. He has had low drip score and no indications for broad-spectrum antibiotics at this time. Given his pneumonia and COPD exacerbation I felt he needed admission to the hospital for continued evaluation and therapy. I discussed the case with the admitting physician over the phone Dr. Ramos. We went over patient's imaging studies, plan of care, clinical improvement with treatment here in the ED and he was accepted to a telemetry monitored bed at this time. Differential Diagnosis Differential diagnosis: Likely acute exacerbation of chronic obstructive airways disease, congestive heart failure, community acquired pneumonia, asthma with exacerbation, pulmonary embolism and other Medical Records Attestation: I reviewed the patient's medical records. Lab Data Attestation: I reviewed the patient's lab results. 04/12/24 19:57 04/12/24 19:57 Labs: Lab Results 04/12/24 Range/Units 19:57 WBC 9.9 (4.5-10.0) K/mm3 RBC 4.55 L (4.6-6.20) M/mm3 Hgb 15.0 (14.0-18.0) g/dL Hct 44.2 (42.0-52.0) % MCV 97.1 (80-100) fl MCH 33.0 (26-34) pg MCHC 33.9 (32-36) g/dl RDW 13.7 (11.5-14.5) % Plt Count 202 (150-375) k/mm3 MPV 9.9 (7.4-10.4) fl Immature Gran % (Auto) 0.3 (0-0.5) % Neut % (Auto) 75.4 H (45.5-73.1) % Lymph % (Auto) 13.8 L (18.3-44.2) % [place] % (Auto) 9.6 H (2.6-8.5) % Eos % (Auto) 0.6 (0-4.4) % Baso % (Auto) 0.3 (0.2-1.2) % Lymph # (Auto) 1.37 (0.9-3.2) K/mm3 [place] # (Auto) 1.0 H (0.1-0.6) K/mm3 Eos # (Auto) 0.1 (0-0.3) K/mm3 Baso # (Auto) 0.0 (0.0-0.1) K/mm3 Abs Immat Gran (auto) 0.03 (0.00-0.031) K/mm3 Absolute Neuts (auto) 7.5 H (1.3-6.7) K/mm3 Absolute Nucleated RBC 0.000 (0.0-0.012) K/mm3 Nucleated RBC % 0.0 (0.0-0.2) % Sodium 134 L (137-145) mmol/L Potassium 4.3 (3.4-5.0) mmol/L Chloride 94 L (98-107) mmol/L Carbon Dioxide 29 (22-30) mmol/L Anion Gap 11 (4-12) mmol/L BUN 15 (9-20) mg/dL Creatinine 0.50 L (0.7-1.3) mg/dL Estim Creat Clear Calc 105 ml/min Estimated GFR > 60 (59 - ) Glucose 107 (65-110) mg/dL Calcium 9.3 (8.4-10.2) mg/dL Total Bilirubin 0.8 (0.2-1.3) mg/dL AST 28 (17-59) U/L ALT 15 (6-50) U/L Alkaline Phosphatase 108 (38-126) U/L Total Protein 8.0 (6.3-8.2) g/dL Albumin 4.2 (3.5-5.1) g/dL Imaging Data Attestation: I personally reviewed and interpreted this imaging study as follows: My impression: Impressions Chest X-Ray 04/12/24 21:01 IMPRESSION: Focal infiltrate or atelectasis in the left midlung, obscuring the superior segment left lower lobe pulmonary mass Mild infiltrate or atelectasis in the left lung base Small right lower lung nodular mass COPD ECG Data EKG #1: Attestation: I personally reviewed and interpreted this ECG as follows: ECG completion date: 04/12/24 ECG completion time: 20:04 Prior ECG tracings: available for review Interpretation: No ST segment elevations, depressions or inversions. No ectopy. Sinus tachycardia with an elevated rate of 109, QTC interval normal at 441, QRS normal 76. Compared to prior EKGs no acute ischemic evidence is seen. Critical Care Time Critical Care Time Critical Care Time: Yes Total Critical Care Time: 35 Discharge Plan Discharge Clinical Impression: Acute exacerbation of chronic obstructive airways disease, CAP (community acquired pneumonia), History of DVT (deep vein thrombosis), Thoracic aortic aneurysm without rupture Patient Disposition: Still a Patient Condition: Stable Time of Disposition: 04:24
[2024-04-13] MEDS: DOXYCYCLINE 100 MG/NS 100 ML 100 MG/100 ML BAG IVPB (04:34)
--- NOTE | 2024-04-13 05:15 | ADMGEN ---
This patient, Donta Collins, was admitted to 2 Medical Room 259-01. Patient/family oriented to hospital policies and general routines including ID bracelet, bed and alarms, visiting hours, pain management, procedures, bathroom and other care routines, personal items, smoking policy, room service/diet, and visiting hours. Information on how to activate the Rapid Response Team has been discussed. Patient/Family are encouraged to report perceived risks to care and to ask questions if they do not understand what they are told or what they should do.
--- NOTE | 2024-04-13 08:24 | P.HP_ITS ---
H&P: HPI History of Present Illness Date/Time: 04/13/24 08:24 Chief Complaint: Shortness of breaths Narrative: Patient is a 73-year-old male who presented to the emergency department with complaints of worsening shortness of breath. Patient states he has oxygen at home that he wears prn however for the last few days he has required to wear his oxygen at all times. Patient does have a past medical history COPD with severe emphysema, hypertension, hyperlipidemia previous DVT currently on anticoagulation Xarelto, and just recently diagnosed with non-small cell lung cancer. patient states he came to the emergency department because he concerned he had developed pneumonia. he reported shortness breath, nonproductive cough worsened in the few weeks and recent radiation therapy in November. Patient denied chest pain, fever, chills, nausea or vomiting. patient states he had been wearing his oxygen all the time and continue to use his nebulizer treatments at home but was having no relief with symptoms. patient states he is currently seeking treatment for his lung cancer with Dr. Chamberlain outpatient. CTA chest showed no pulmonary emboli however did show stable nodules in the left upper lobe, right lower lobe as well as airspace opacities in the left upper lobe and left lower lobe consistent with pneumonia. patient was given IV antibiotic, Duo nebulizers steroids in the emergency department and admitted to the medical unit for further evaluation and treatment acute respiratory failure with hypoxia secondary to pneumonia and COPD exacerbation. Review of Systems Review of Systems: All systems reviewed & are unremarkable except as noted in HPI and below PMFSH Past Medical History Medical History (Updated 04/13/24 @ 08:34 by Amy Quiroz APRN) COPD exacerbation History of DVT (deep vein thrombosis) L LE (chronic swelling in extremity) History of prostate cancer Hyperlipidemia Hypertension Pneumonia Sleep apnea Thoracic aortic aneurysm without rupture Surgical History Surgical History H/O cataract extraction H/O foot surgery Family History Family History Mother Family history of lung cancer Father Acute myocardial infarction VTE (venous thromboembolism) Social History Social History Social History: The patient lives at home with his who is the durable power deputy prosecuting attorney for healthcare. If she cannot be durable power deputy prosecuting attorney his daughters will be. The patient has 2 children. 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 Patient is a former smoker. He denies any alcohol marijuana or illicit drugs. Code status full code Smoking packs per day: 3 Smoking cigarettes per day: 60.0 Years smoked: 40 Smoking pack-years: 120.00 Smoking status: Former smoker Tobacco type: cigarettes Second hand tobacco smoke exposure: No Smoking end date: 05/20/05 Alcohol intake: current Drinks per week: 14 Substance use: never Do You Feel Safe in your Home?: Yes Lack of Transportation: No Lack of Food: Never True Current Housing: I Have Housing Concerned About Future Housing: No Difficulty Paying Gas/Electric Bills: No Difficulty Paying for Meds: No Currently Unemployed: No Education: High School Diploma/GED Difficulty w/ Childcare or Family Care: No Spiritual care concerns: No Meds Home Medications and Allergies Home Medications Medication Instructions Recorded Confirmed Type albuterol sulfate 90 mcg/actuation 1 inhalation inhalation Q4H PRN 05/27/19 04/13/24 History aerosol inhaler (Ventolin HFA) Wheezing multivitamin (Multiple Vitamins 1 tablet PO DAILY 05/27/19 04/13/24 History tablet) rivaroxaban 20 mg tablet (Xarelto) 20 mg PO QPM 05/27/19 04/13/24 History budesonide 160 mcg-glycopyr 9 2 inh inhalation QAM AND QPM #10.7 05/26/21 04/13/24 Rx mcg-formot 4.8 mcg/actuation HFA grams inhaler (Breztri Aerosphere) acetaminophen 325 mg tablet (Mapap 650 mg PO Q4H PRN Mild Pain (1-3) 05/18/22 04/13/24 Rx (acetaminophen)) Or Fever #30 tabs oxygen #1 ea 05/25/22 04/13/24 Rx amlodipine 5 mg tablet 5 mg PO QPM 06/11/22 04/13/24 History atenolol 100 mg tablet 100 mg PO DAILY 06/11/22 04/13/24 History ipratropium 0.5 mg-albuterol 3 mg 3 ml inhalation Q6H PRN Wheezing 06/11/22 04/13/24 History (2.5 mg base)/3 mL nebulization soln pantoprazole 20 mg tablet,delayed 40 mg PO DAILY 07/03/22 04/13/24 History release (Protonix) simvastatin 20 mg tablet 20 mg PO QAM 07/03/22 04/13/24 History calcium carb-vitamin D3 ER 600 mg 1 tablet PO DAILY 04/13/24 04/13/24 History (1,500 mg)-500 unit tablet,ER 24 hr guaifenesin 1,200 mg tablet, 1,200 mg PO BID 04/13/24 04/13/24 History extended release 12 hr (Mucinex) Allergies Allergy/AdvReac Type Severity Reaction Status Date / Time No Known Allergies Allergy Verified 03/05/24 16:04 Vital Signs Vital Signs - 24 hr 04/12/24 19:48 04/12/24 21:24 04/12/24 21:27 Temperature 97.8 F Pulse Rate 112 H 102 H Respiratory Rate 20 20 Blood Pressure 129/76 123/78 Pulse Oximetry 98 100 98 Oxygen Delivery Nasal Cannula Oxygen Flow Rate 4 04/12/24 23:08 04/12/24 23:45 04/13/24 01:32 Temperature Pulse Rate 106 H 100 Respiratory Rate 20 20 Blood Pressure 111/78 Pulse Oximetry 98 96 Oxygen Delivery Oxygen Flow Rate 04/13/24 01:45 04/13/24 02:00 04/13/24 02:01 Temperature Pulse Rate Respiratory Rate Blood Pressure 118/74 Pulse Oximetry 100 100 100 Oxygen Delivery Oxygen Flow Rate 04/13/24 02:15 04/13/24 02:16 04/13/24 02:30 Temperature Pulse Rate Respiratory Rate Blood Pressure 119/89 Pulse Oximetry 97 100 100 Oxygen Delivery Oxygen Flow Rate 04/13/24 02:31 04/13/24 02:45 04/13/24 03:05 Temperature Pulse Rate Respiratory Rate Blood Pressure 105/62 Pulse Oximetry 100 99 96 Oxygen Delivery Oxygen Flow Rate 04/13/24 03:15 04/13/24 03:30 04/13/24 03:45 Temperature Pulse Rate Respiratory Rate Blood Pressure Pulse Oximetry 97 95 96 Oxygen Delivery Oxygen Flow Rate 04/13/24 04:59 04/13/24 03:52 04/13/24 04:00 Temperature Pulse Rate 123 H Respiratory Rate 19 Blood Pressure 121/67 105/71 Pulse Oximetry 96 96 96 Oxygen Delivery Oxygen Flow Rate 04/13/24 04:01 04/13/24 04:15 04/13/24 04:30 Temperature Pulse Rate Respiratory Rate Blood Pressure 107/69 Pulse Oximetry 96 96 96 Oxygen Delivery Oxygen Flow Rate 04/13/24 04:31 04/13/24 04:45 04/13/24 05:16 Temperature Pulse Rate Respiratory Rate 112 H Blood Pressure 121/64 Pulse Oximetry 97 96 96 Oxygen Delivery Nasal Cannula Oxygen Flow Rate 3 04/13/24 05:25 04/13/24 06:00 04/13/24 05:00 Temperature 97.7 F Pulse Rate 117 H 116 H Respiratory Rate 18 112 H Blood Pressure 128/76 121/64 Pulse Oximetry 96 Oxygen Delivery Oxygen Flow Rate Exam Narrative: * GENERAL: Alert and oriented x 3. No acute distress. * EYES: EOMI. No scleral icterus. PERRLA. * HEENT: Moist mucous membranes. * LUNGS: scant wheezing throughout and diminished at the bases bilaterally. No accessory muscle use. Productive cough * CARDIOVASCULAR: Regular rate and rhythm. No murmur. No JVD. S1-S2 * ABDOMEN: Soft, non tenderness and non-distended. No palpable masses. * EXTREMITIES: No edema. Non-tender * SKIN: No rashes or lesions. Skin warm, dry. * NEUROLOGIC: No focal neurological deficits. CN II-XII grossly intact * PSYCHIATRIC: Appropriate mood and affect. Good judgement and insight. No visual or auditory hallucinations. No suicidal or homicidal ideation. H&P: Results Labs Labs: Short CBC 04/12/24 Range/Units 19:57 WBC 9.9 (4.5-10.0) K/mm3 Hgb 15.0 (14.0-18.0) g/dL Hct 44.2 (42.0-52.0) % Plt Count 202 (150-375) k/mm3 BMP 04/12/24 19:57 Sodium 134 L Potassium 4.3 Chloride 94 L Carbon Dioxide 29 BUN 15 Creatinine 0.50 L Glucose 107 Calcium 9.3 Liver Function 04/12/24 Range/Units 19:57 Total Bilirubin 0.8 (0.2-1.3) mg/dL AST 28 (17-59) U/L ALT 15 (6-50) U/L Alkaline Phosphatase 108 (38-126) U/L Albumin 4.2 (3.5-5.1) g/dL Imaging CT scan - chest: Radiologist's impression: COMPARISON: Chest CT 01/28/2024, 06/04/2023, 12/18/22 FINDINGS: There is severe emphysema. There are airspace opacities in left upper lobe and left lower lobe. There is a 1.7 cm nodule in left upper lobe. There is a 7 mm nodule in right lower lobe. There is a trace left pleural effusion. The heart size is normal. No pericardial effusion. There is no pulmonary embolus. 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 There is cortical thinning of the kidneys. There is severe cervical spondylosis and mild thoracic spondylosis. There is a burst fracture of T7 with 4/5 loss of height. IMPRESSION: 1. Stable 1.7 cm nodule in left lung upper lobe, consistent with primary bronchogenic carcinoma. 2. 7 mm nodule in right lung lower lobe, which measured 6 mm on 06/04/2023 and 5 mm on 12/18/22. This finding is suspicious for primary bronchogenic carcinoma. 3. Airspace opacities in left upper lobe and left lower lobe, consistent with pneumonia. 4. Severe emphysema. 5. T7 burst fracture, worsened from 01/28/2024. 6. 4.3 cm fusiform aneurysm is suprarenal abdominal aorta. 7. No pulmonary embolus. Assessment and Plan Assessment and plan (1) Acute and chronic respiratory failure with hypoxia: Code(s): J96.21 - Acute and chronic respiratory failure with hypoxia Status: Acute Assessment and Plan: * secondary to pneumonia, COPD exacerbation, non-small cell lung cancer * patient usually wears oxygen p.r.n. requiring 4 L at this time at all times wean as tolerated * will need f/u walk study prior to discharge * Korina (2) Pneumonia: Code(s): J18.9 - Pneumonia, unspecified organism Status: Acute Assessment and Plan: * Bronchodilators. * CTA: Negative for PE/Stable nodules LT/RT lobes/ opacities in the left upper lobe and left lower lobe consistent with pneumonia * incentive spirometry while awake. * sputum culture ordered * influenza/COVID/RSV pending * mycoplasma, Legionella and pneumococcal pending * ceftriaxone and azithromycin ( MRSA pending) patient immunocompromised * supplemental oxygen therapy to maintain oxygen 92% on 4L NC usually wears oxygen PRN * monitor for signs of in sepsis * former smoker * mucolytics * antipyretics (3) Radiation pneumonitis: Code(s): J70.0 - Acute pulmonary manifestations due to radiation Status: Acute Assessment and Plan: * Recent radiation in November for non-small cell carcinoma * SEE ABOVE PNA L (4) COPD exacerbation: Code(s): J44.1 - Chronic obstructive pulmonary disease with (acute) exacerbation Status: Acute Assessment and Plan: * Bronchodilators. * Chest x-ray Review * incentive spirometry while awake. * steroids initiated * azithromycin 500 x 1 day/250 daily/ ceftriaxone * supplemental oxygen therapy to maintain oxygen 92% on 4L wears PRN at home * Pulmonary rehab if indicated. * F/U Evaluation for home O2 requirements prior to discharge (5) Thoracic compression fracture: Code(s): S22.000A - Wedge compression fracture of unspecified thoracic vertebra, initial encounter for closed fracture Status: Acute Assessment and Plan: * Chronic but worsening * NSAIDS/pain management * PT/OT (6) Non-small cell lung cancer: Code(s): C34.90 - Malignant neoplasm of unspecified part of unspecified bronchus or lung Status: Acute Assessment and Plan: * Recently diagnosed * Radiation November * CTA showing stable nodules * Follows outpatient with Dr. Chamberlain (7) History of DVT (deep vein thrombosis): Code(s): Z86.718 - Personal history of other venous thrombosis and embolism Status: Acute Assessment and Plan: * Resumed Xarelto (8) Hypertension: Code(s): I10 - Essential (primary) hypertension Status: Chronic Assessment and Plan: * Reviewed and stable 04/13/24 * Resumed home medications * Monitor per unit protocol (9) Thoracic aortic aneurysm without rupture: Code(s): I71.20 - Thoracic aortic aneurysm, without rupture, unspecified Status: Acute Assessment and Plan: * Stable 4.3 cm fusiform aneurysm is suprarenal abdominal aorta. * Previous CTA 01/04/24: 4.2 x 3.7 cm fusiform aortic aneurysm at the thoracic hiatus. * Monitor and control BP Plan Code status: DNR DVT prophylaxis: Xarelto Stress ulcer prophylaxis: Protonix 40 daily PT/OT notes: PT/OT pending Disposition: patient was admitted to the medical unit for further evaluation and treatment of acute respiratory failure with hypoxia secondary to pneumonia, COPD exacerbation, and new diagnosis of [id number] lung cancer with radiation treatment November. 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 Quality VTE Prophylaxis VTE prophylaxis: pharmacologic ordered -Patient's previous records reviewed on admission -ER notes reviewed in detail on admission -discussed all findings and current treatment plan with patient/Family/POA -Consultations reviewed for recommendations -Patient's disposition for safe discharge discussed with rehabilitation case coordinator Dictation performed by [employer] direct speech recognition software, therefore tig welder variants and typographical errors may occur. Hospitalist MIPS Advance Care Plan I have confirmed that the patient's Advanced Care Plan is present, code status is documented, or surrogate decision maker is listed in patient medical record.: Yes Medication Reconciliation I have utilized all available resources to obtain, update and review the patients current medications (includes all prescriptions, OTC, herbals, cannabis, and nutritional supplements).: Yes The patient is not eligible for med reconciliation; the patient is in a emergent medical situation where delaying treatment would jeopardize the patients health.: No
[2024-04-13 09:00] LABS: Basophils Percent Auto 0.2 % (0.2-1.2); Hematocrit 39.2 % (42.0-52.0); Hemoglobin 12.8 g/dL (14.0-18.0); Immature Granulocyte Absolute 0.03 K/mm3 (0.00-0.031); Immature Granulocyte Percent A 0.5 % (0-0.5); Lymphocytes Absolute Auto 0.47 K/mm3 (0.9-3.2); Lymphocytes Percent Auto 7.1 % (18.3-44.2); Mean Corpuscular HGB Conc 32.7 g/dl (32-36); Mean Corpuscular Hemoglobin 31.8 pg (26-34); Mean Corpuscular Volume 97.3 fl (80-100); Mean Platelet Volume 10.1 fl (7.4-10.4); Monocytes Absolute Auto 0.2 K/mm3 (0.1-0.6); Monocytes Percent Auto 2.3 % (2.6-8.5); Neutrophils Percent Auto 89.9 % (45.5-73.1); Platelet Count Result 179 k/mm3 (150-375); Red Blood Count 4.03 M/mm3 (4.6-6.20); Red Cell Distribution Width 13.8 % (11.5-14.5); White Blood Count 6.6 K/mm3 (4.5-10.0)
[2024-04-13] MEDS: IPRATROPIUM 0.5 MG/ALBUTEROL SULFATE 2.5 MG AMPUL.NEB 3 ML INHALATION ×3 (09:11→21:20)
[2024-04-13 09:23] LABS: Magnesium 2.1 mg/dL (1.6-2.3)
[2024-04-13 09:26] LABS: Alanine Aminotransferase 13 U/L (6-50); Albumin Level 3.7 g/dL (3.5-5.1); Alkaline Phosphatase 87 U/L (38-126); Anion Gap 13 mmol/L (4-12); Aspartate Amino Transferase 21 U/L (17-59); Bilirubin,Total 0.6 mg/dL (0.2-1.3); Blood Urea Nitrogen 11 mg/dL (9-20); Carbon Dioxide 24 mmol/L (22-30); Chloride 96 mmol/L (98-107); Estimated CRCL calculation 128 ml/min; Estimated Glomerular Filt Rate > 60; Glucose 187 mg/dL (65-110); Potassium 4.1 mmol/L (3.4-5.0); Sodium 133 mmol/L (137-145)
[2024-04-13] MEDS: guaiFENesin 12 HR 600 MG TABCR 1200 MG PO ×2 (10:01→20:49)
[2024-04-13] MEDS: atenoloL 50 MG TABLET 100 MG PO (10:01)
[2024-04-13] MEDS: MULTIVITAMINS THERAPEUTIC TAB (*BKC) 1 TABLET PO (10:01)
[2024-04-13] MEDS: PANTOPRAZOLE 40 MG TABLET PO (10:02)
[2024-04-13] MEDS: SIMVASTATIN 20 MG TABLET PO (10:02)
[2024-04-13] MEDS: AZITHROMYCIN 500 MG/NS 250 ML 500 MG/250 ML BAG 250 MG IVPB (10:02)
[2024-04-13] MEDS: methylPREDNISolone SOD SUCC 125 MG VIAL 60 MG IV PUSH ×3 (10:06→20:49)
[2024-04-13 12:31] LABS: Influenza A QL RT-PCR Negative (Negative); Influenza B QL RT-PCR Negative (Negative); RSV RNA, RT-PCR Negative (Negative); SARS-CoV-2 RNA PCR Negative (Negative)
[2024-04-13 13:43] LABS: MRSA (PCR) NOT DETECTED (NOT DETECTE)
[2024-04-13] MEDS: amLODIPine BESYLATE 5 MG TABLET PO (17:29)
[2024-04-13] MEDS: RIVAROXABAN 20 MG TABLET PO (17:29)
[2024-04-14] VITALS (20 sets, daily range): BP systolic 114–132; BP diastolic 66–76; PULSE 62–110; RESP 18–20; TEMP 36.5–36.7; O2SAT 95–99
[2024-04-14] MEDS: IPRATROPIUM 0.5 MG/ALBUTEROL SULFATE 2.5 MG AMPUL.NEB 3 ML INHALATION ×4 (02:08→21:52)
[2024-04-14] MEDS: methylPREDNISolone SOD SUCC 125 MG VIAL 60 MG IV PUSH ×3 (05:44→21:27)
[2024-04-14 06:03] LABS: Basophils Percent Auto 0.1 % (0.2-1.2); Hematocrit 43.4 % (42.0-52.0); Hemoglobin 14.4 g/dL (14.0-18.0); Immature Granulocyte Absolute 0.07 K/mm3 (0.00-0.031); Immature Granulocyte Percent A 0.8 % (0-0.5); Lymphocytes Absolute Auto 0.67 K/mm3 (0.9-3.2); Lymphocytes Percent Auto 7.2 % (18.3-44.2); Mean Corpuscular HGB Conc 33.2 g/dl (32-36); Mean Corpuscular Hemoglobin 32.7 pg (26-34); Mean Corpuscular Volume 98.4 fl (80-100); Mean Platelet Volume 10.1 fl (7.4-10.4); Monocytes Absolute Auto 0.5 K/mm3 (0.1-0.6); Monocytes Percent Auto 5.3 % (2.6-8.5); Neutrophils Absolute Auto 8.1 K/mm3 (1.3-6.7); Neutrophils Percent Auto 86.6 % (45.5-73.1); Platelet Count Result 228 k/mm3 (150-375); Red Blood Count 4.41 M/mm3 (4.6-6.20); Red Cell Distribution Width 13.4 % (11.5-14.5); White Blood Count 9.3 K/mm3 (4.5-10.0)
[2024-04-14 06:18] LABS: Alanine Aminotransferase 20 U/L (6-50); Albumin Level 4.2 g/dL (3.5-5.1); Alkaline Phosphatase 95 U/L (38-126); Anion Gap 11 mmol/L (4-12); Aspartate Amino Transferase 31 U/L (17-59); Bilirubin,Total 0.6 mg/dL (0.2-1.3); Blood Urea Nitrogen 12 mg/dL (9-20); Calcium 9.3 mg/dL (8.4-10.2); Carbon Dioxide 27 mmol/L (22-30); Chloride 97 mmol/L (98-107); Estimated CRCL calculation 128 ml/min; Estimated Glomerular Filt Rate > 60; Glucose 201 mg/dL (65-110); Potassium 3.8 mmol/L (3.4-5.0); Sodium 135 mmol/L (137-145)
--- NOTE | 2024-04-14 07:30 | P.PNIM_ITS ---
Progress Note: A&P Assessment and Plan (1) Acute and chronic respiratory failure with hypoxia: Code(s): J96.21 - Acute and chronic respiratory failure with hypoxia Status: Acute Assessment and Plan: * secondary to pneumonia, COPD exacerbation, non-small cell lung cancer * patient usually wears oxygen p.r.n. requiring 4 L at this time at all times wean as tolerated * will need f/u walk study prior to discharge * Korina 04/14/24: * Oxygen weaned to 2L (2) Pneumonia: Code(s): J18.9 - Pneumonia, unspecified organism Status: Acute Assessment and Plan: * Bronchodilators. * CTA: Negative for PE/Stable nodules LT/RT lobes/ opacities in the left upper lobe and left lower lobe consistent with pneumonia * incentive spirometry while awake. * sputum culture ordered * influenza/COVID/RSV Negative * mycoplasma, Legionella and pneumococcal pending * ceftriaxone and azithromycin ( MRSA pending) patient immunocompromised * supplemental oxygen therapy to maintain oxygen 92% on 4L NC usually wears oxygen PRN * monitor for signs of in sepsis * former smoker * mucolytics * antipyretics (3) Radiation pneumonitis: Code(s): J70.0 - Acute pulmonary manifestations due to radiation Status: Acute Assessment and Plan: * Recent radiation in November for non-small cell carcinoma * SEE ABOVE PNA (4) COPD exacerbation: Code(s): J44.1 - Chronic obstructive pulmonary disease with (acute) exacerbation Status: Acute Assessment and Plan: * Bronchodilators. * Chest x-ray Review * incentive spirometry while awake. * steroids initiated * azithromycin 500 x 1 day/250 daily/ ceftriaxone * supplemental oxygen therapy to maintain oxygen 92% on 4L wears PRN at home * Pulmonary rehab if indicated. * F/U Evaluation for home O2 requirements prior to discharge (5) Thoracic compression fracture: Code(s): S22.000A - Wedge compression fracture of unspecified thoracic vertebra, initial encounter for closed fracture Status: Acute Assessment and Plan: * Chronic but worsening * NSAIDS/pain management * PT/OT (6) Non-small cell lung cancer: Code(s): C34.90 - Malignant neoplasm of unspecified part of unspecified bronchus or lung Status: Acute Assessment and Plan: * Recently diagnosed * Radiation November * CTA showing stable nodules * Follows outpatient with Dr. Chamberlain (7) History of DVT (deep vein thrombosis): Code(s): Z86.718 - Personal history of other venous thrombosis and embolism Status: Acute Assessment and Plan: * Resumed Xarelto (8) Hypertension: Code(s): I10 - Essential (primary) hypertension Status: Chronic Assessment and Plan: * Reviewed and stable 04/13/24 * Resumed home medications * Monitor per unit protocol (9) Thoracic aortic aneurysm without rupture: Code(s): I71.20 - Thoracic aortic aneurysm, without rupture, unspecified Status: Acute Assessment and Plan: * Stable 4.3 cm fusiform aneurysm is suprarenal abdominal aorta. * Previous CTA 01/04/24: 4.2 x 3.7 cm fusiform aortic aneurysm at the thoracic hiatus. * Monitor and control BP Plan Code status: DNR DVT prophylaxis: Xarelto Stress ulcer prophylaxis: Protonix 40 daily PT/OT notes: PT/OT pending Disposition: patient was admitted to the medical unit for further evaluation and treatment of acute respiratory failure with hypoxia secondary to pneumonia, COPD exacerbation, and new diagnosis of [id number] lung cancer with radiation treatment November. will continue with current treatment and wean O2 as needed he will need follow-up oxygen study to determine if he needs oxygen complex manager prior to discharge Daniellan wants to return home with outpatient PT/OT. Time Spent With Patient Time with patient: 15 - 25 minutes Subjective Date/time seen: 04/14/24 07:30 Interval history: Patient is a 73-year-old male admitted to the medical unit for further evaluation and treatment of pneumonia and COPD exacerbation. 04/14/24: Patient up in chair reports his SOB is mildly improving but still worse with activity. Denied CP, Dizziness, N/V, fever or chills. Review of Systems Review of Systems: All systems reviewed & are unremarkable except as noted in HPI and below Exam Narrative: * GENERAL: Alert and oriented x 3. No acute distress. * EYES: PERRLA. * HEENT: Moist mucous membranes. * LUNGS: scant wheezing throughout and diminished at the bases bilaterally. No accessory muscle use. Productive cough * CARDIOVASCULAR: Regular rate and rhythm. No murmur.. S1-S2 * ABDOMEN: Soft, non tenderness and non-distended. No palpable masses. * EXTREMITIES: No edema. Non-tender * SKIN: No rashes or lesions. Skin warm, dry. * NEUROLOGIC: No focal neurological deficits. * PSYCHIATRIC: Appropriate mood and affect. Objective Data Vital Signs Vital Signs: Vital Signs - 24 hr 04/13/24 09:14 04/13/24 09:14 04/13/24 09:22 Temperature Pulse Rate 106 H 94 Respiratory Rate 20 20 Blood Pressure Pulse Oximetry 94 Oxygen Delivery Nasal Cannula Oxygen Flow Rate 3 04/13/24 10:01 04/13/24 08:00 04/13/24 08:00 Temperature Pulse Rate 94 98 Respiratory Rate Blood Pressure Pulse Oximetry 95 Oxygen Delivery Nasal Cannula Oxygen Flow Rate 3 04/13/24 12:00 04/13/24 14:06 04/13/24 14:15 Temperature Pulse Rate 87 85 84 Respiratory Rate 20 20 Blood Pressure Pulse Oximetry Oxygen Delivery Oxygen Flow Rate 04/13/24 14:00 04/13/24 16:00 04/13/24 20:01 Temperature 96.7 F L 97.8 F Pulse Rate 96 85 83 Respiratory Rate 18 18 Blood Pressure 119/67 136/79 Pulse Oximetry 94 96 Oxygen Delivery Oxygen Flow Rate 04/13/24 21:21 04/13/24 21:21 04/13/24 20:00 Temperature Pulse Rate 87 Respiratory Rate 18 Blood Pressure Pulse Oximetry 96 96 Oxygen Delivery Nasal Cannula Nasal Cannula Oxygen Flow Rate 3 3 04/13/24 20:00 04/14/24 00:00 04/14/24 02:08 Temperature Pulse Rate 79 84 92 Respiratory Rate 18 Blood Pressure Pulse Oximetry Oxygen Delivery Oxygen Flow Rate 04/14/24 02:17 04/14/24 04:58 04/14/24 04:00 Temperature 97.7 F Pulse Rate 87 81 65 Respiratory Rate 18 18 Blood Pressure 128/67 Pulse Oximetry 97 Oxygen Delivery Oxygen Flow Rate Intake/Output Intake/Output: Intake & Output 04/11/24 04/12/24 04/13/24 04/14/24 23:59 23:59 23:59 23:59 Intake Total 1070 540 Balance 1070 540 Meds/Results Medications: Active Medications Generic Name Dose Route Start Last Admin Trade Name Freq PRN Reason Stop Dose Admin Acetaminophen 650 mg 04/13/24 08:12 Acetaminophen 325 Mg Tablet PO Q4H PRN Mild Pain (1-3) or Fever Hydrocodone Bitart/Acetaminophen 1 tab 04/13/24 08:12 Hydrocodone/Acetaminophen (*Crx) 5-325 Mg Tablet PO Q4H PRN Moderate Pain (4-6) Albuterol 1 puff 04/13/24 08:14 Albuterol Sulfate (*Sp) Aerosol 1 Puff INHALATION Q4H PRN Wheezing Albuterol/Ipratropium 3 ml 04/13/24 08:00 04/14/24 02:08 Ipratropium 0.5 Mg/Albuterol Sulfate 2.5 Mg Ampul.Neb 3 Ml INHALATION 3 ml Q6HRT JOSE Administration Albuterol/Ipratropium 3 ml 04/13/24 08:14 Ipratropium 0.5 Mg/Albuterol Sulfate 2.5 Mg Ampul.Neb 3 Ml INHALATION Q6H PRN Wheezing Amlodipine Besylate 5 mg 04/13/24 18:00 04/13/24 17:29 Amlodipine Besylate 5 Mg Tablet PO 5 mg QPM JOSE Administration Atenolol 100 mg 04/13/24 09:00 04/13/24 10:01 Atenolol 50 Mg Tablet PO 100 mg DAILY JOSE Administration Azithromycin 500 mg 04/14/24 09:00 Azithromycin 250 Mg Tablet PO 04/17/24 09:01 DAILY JOSE Guaifenesin 1,200 mg 04/13/24 09:00 04/13/24 20:49 Guaifenesin 12 Hr 600 Mg Tabcr PO 1,200 mg Q12HR JOSE Administration Ceftriaxone Sodium 1 gm in 50 mls @ 100 mls/hr 04/14/24 06:00 04/14/24 06:14 Rocephin 1 Gm/Ns 50 Ml IVPB Infused Q24H JOSE Infusion Methylprednisolone Sodium Succinate 60 mg 04/13/24 08:30 04/14/24 05:44 Methylprednisolone Sod Succ 125 Mg Vial IV PUSH 60 mg Q8HR JOSE Administration Multivitamins Therapeutic 1 tablet 04/13/24 09:00 04/13/24 10:01 Multivitamins Therapeutic Tab (*Bkc) PO 1 tablet DAILY JOSE Administration Ondansetron HCl 4 mg 04/13/24 08:12 Ondansetron Inj 4 Mg/2 Ml Vial IV PUSH Q6H PRN Nausea And Vomiting Pantoprazole Sodium 40 mg 04/13/24 09:00 04/13/24 10:02 Pantoprazole 40 Mg Tablet PO 40 mg QAM JOSE Administration Rivaroxaban 20 mg 04/13/24 17:00 04/13/24 17:29 Rivaroxaban 20 Mg Tablet PO 20 mg DAILY@1700 JOSE Administration Simvastatin 20 mg 04/13/24 09:00 04/13/24 10:02 Simvastatin 20 Mg Tablet PO 20 mg QAM JOSE Administration Radiology Results: ITS Impressions Chest X-Ray 04/12/24 21:01 IMPRESSION: Focal infiltrate or atelectasis in the left midlung, obscuring the superior segment left lower lobe pulmonary mass Mild infiltrate or atelectasis in the left lung base Small right lower lung nodular mass COPD Chest CTA 04/13/24 06:32 IMPRESSION: 1. Stable 1.7 cm nodule in left lung upper lobe, consistent with primary bronchogenic carcinoma. 2. 7 mm nodule in right lung lower lobe, which measured 6 mm on 06/04/2023 and 5 mm on 12/18/22. This finding is suspicious for primary bronchogenic carcinoma. 3. Airspace opacities in left upper lobe and left lower lobe, consistent with pneumonia. 4. Severe emphysema. 5. T7 burst fracture, worsened from 01/28/2024. 6. 4.3 cm fusiform aneurysm is suprarenal abdominal aorta. 7. No pulmonary embolus. Labs Labs: Laboratory Results - last 24 hr 04/13/24 04/13/24 04/14/24 08:27 11:38 05:45 WBC 6.6 9.3 RBC 4.03 L 4.41 L Hgb 12.8 L 14.4 Hct 39.2 L 43.4 MCV 97.3 98.4 MCH 31.8 32.7 MCHC 32.7 33.2 RDW 13.8 13.4 Plt Count 179 228 MPV 10.1 10.1 Immature Gran % (Auto) 0.5 0.8 H Neut % (Auto) 89.9 H 86.6 H Lymph % (Auto) 7.1 L 7.2 L [place] % (Auto) 2.3 L 5.3 Eos % (Auto) 0.0 0.0 Baso % (Auto) 0.2 0.1 L Lymph # (Auto) 0.47 L 0.67 L [place] # (Auto) 0.2 0.5 Eos # (Auto) 0.0 0.0 Baso # (Auto) 0.0 0.0 Abs Immat Gran (auto) 0.03 0.07 H Absolute Neuts (auto) 6.0 8.1 H Absolute Nucleated RBC 0.000 0.000 Nucleated RBC % 0.0 0.0 Sodium 133 L 135 L Potassium 4.1 3.8 Chloride 96 L 97 L Carbon Dioxide 24 27 Anion Gap 13 H 11 BUN 11 12 Creatinine 0.40 L 0.40 L Estim Creat Clear Calc 128 128 Estimated GFR > 60 > 60 Glucose 187 H 201 H Calcium 9.0 9.3 Magnesium 2.1 Total Bilirubin 0.6 0.6 AST 21 31 ALT 13 20 Alkaline Phosphatase 87 95 Total Protein 7.0 8.0 Albumin 3.7 4.2 Nasal MRSA (PCR) Not detected Influenza A (RT-PCR) Negative Influenza B (RT-PCR) Negative RSV (RT-PCR) Negative SARS-CoV-2 RNA (RT-PCR) Negative Quality VTE Prophylaxis VTE prophylaxis: pharmacologic ordered -Patient's previous records reviewed on admission -ER notes reviewed in detail on admission -discussed all findings and current treatment plan with patient/Family/POA -Consultations reviewed for recommendations -Patient's disposition for safe discharge discussed with family preservation caseworker Dictation performed by [employer] direct speech recognition software, therefore sales enablement analyst variants and typographical errors may occur. Hospitalist MIPS Advance Care Plan I have confirmed that the patient's Advanced Care Plan is present, code status is documented, or surrogate decision maker is listed in patient medical record.: Yes Medication Reconciliation I have utilized all available resources to obtain, update and review the patients current medications (includes all prescriptions, OTC, herbals, cannabis, and nutritional supplements).: Yes The patient is not eligible for med reconciliation; the patient is in a emergent medical situation where delaying treatment would jeopardize the patients health.: No
[2024-04-14] MEDS: MULTIVITAMINS THERAPEUTIC TAB (*BKC) 1 TABLET PO (08:40)
[2024-04-14] MEDS: AZITHROMYCIN 250 MG TABLET 500 MG PO (08:40)
[2024-04-14] MEDS: atenoloL 50 MG TABLET 100 MG PO (08:40)
[2024-04-14] MEDS: guaiFENesin 12 HR 600 MG TABCR 1200 MG PO ×2 (08:40→21:28)
[2024-04-14] MEDS: PANTOPRAZOLE 40 MG TABLET PO (08:41)
[2024-04-14] MEDS: SIMVASTATIN 20 MG TABLET PO (08:41)
[2024-04-14] MEDS: RIVAROXABAN 20 MG TABLET PO (17:13)
[2024-04-14] MEDS: amLODIPine BESYLATE 5 MG TABLET PO (17:13)
[2024-04-15] VITALS (16 sets, daily range): BP systolic 112; BP diastolic 73; PULSE 75–104; RESP 18; TEMP 36.4; O2SAT 86–98
[2024-04-15 05:47] LABS: Hematocrit 40.1 % (42.0-52.0); Hemoglobin 13.5 g/dL (14.0-18.0); Immature Granulocyte Absolute 0.04 K/mm3 (0.00-0.031); Immature Granulocyte Percent A 0.5 % (0-0.5); Lymphocytes Absolute Auto 0.59 K/mm3 (0.9-3.2); Lymphocytes Percent Auto 7.6 % (18.3-44.2); Mean Corpuscular HGB Conc 33.7 g/dl (32-36); Mean Corpuscular Hemoglobin 32.6 pg (26-34); Mean Corpuscular Volume 96.9 fl (80-100); Monocytes Absolute Auto 0.3 K/mm3 (0.1-0.6); Monocytes Percent Auto 4.3 % (2.6-8.5); Neutrophils Absolute Auto 6.8 K/mm3 (1.3-6.7); Neutrophils Percent Auto 87.6 % (45.5-73.1); Platelet Count Result 201 k/mm3 (150-375); Red Blood Count 4.14 M/mm3 (4.6-6.20); Red Cell Distribution Width 13.5 % (11.5-14.5); White Blood Count 7.7 K/mm3 (4.5-10.0)
[2024-04-15 05:59] LABS: Alanine Aminotransferase 32 U/L (6-50); Albumin Level 3.7 g/dL (3.5-5.1); Alkaline Phosphatase 85 U/L (38-126); Anion Gap 6 mmol/L (4-12); Aspartate Amino Transferase 36 U/L (17-59); Bilirubin,Total 0.4 mg/dL (0.2-1.3); Blood Urea Nitrogen 16 mg/dL (9-20); Calcium 8.9 mg/dL (8.4-10.2); Carbon Dioxide 31 mmol/L (22-30); Chloride 97 mmol/L (98-107); Estimated CRCL calculation 128 ml/min; Estimated Glomerular Filt Rate > 60; Glucose 173 mg/dL (65-110); Potassium 3.2 mmol/L (3.4-5.0); Sodium 134 mmol/L (137-145)
[2024-04-15] MEDS: methylPREDNISolone SOD SUCC 125 MG VIAL 60 MG IV PUSH (06:07)
[2024-04-15] MEDS: IPRATROPIUM 0.5 MG/ALBUTEROL SULFATE 2.5 MG AMPUL.NEB 3 ML INHALATION ×2 (06:58→12:59)
--- NOTE | 2024-04-15 08:17 | P.PNIM_ITS ---
Progress Note: A&P Assessment and Plan (1) Acute and chronic respiratory failure with hypoxia: Code(s): J96.21 - Acute and chronic respiratory failure with hypoxia Status: Acute Assessment and Plan: * secondary to pneumonia, COPD exacerbation, non-small cell lung cancer * patient usually wears oxygen p.r.n. requiring 4 L at this time at all times wean as tolerated * will need f/u walk study prior to discharge * Duonebs * Oxygen weaned to 2L (2) Pneumonia: Code(s): J18.9 - Pneumonia, unspecified organism Status: Acute Assessment and Plan: * Bronchodilators. * CTA: Negative for PE/Stable nodules LT/RT lobes/ opacities in the left upper lobe and left lower lobe consistent with pneumonia * incentive spirometry while awake. * sputum culture ordered * influenza/COVID/RSV Negative * mycoplasma, Legionella and pneumococcal pending * ceftriaxone and azithromycin ( MRSA negative) patient immunocompromised * supplemental oxygen therapy to maintain oxygen 92% on 4L NC usually wears oxygen PRN * monitor for signs of in sepsis * former smoker * mucolytics * antipyretics (3) Radiation pneumonitis: Code(s): J70.0 - Acute pulmonary manifestations due to radiation Status: Acute Assessment and Plan: * Recent radiation in November for non-small cell carcinoma * SEE ABOVE PNA (4) COPD exacerbation: Code(s): J44.1 - Chronic obstructive pulmonary disease with (acute) exacerbation Status: Acute Assessment and Plan: * Bronchodilators. * Chest x-ray Review * incentive spirometry while awake. * steroids initiated * azithromycin 500 x 1 day/250 daily/ ceftriaxone * supplemental oxygen therapy to maintain oxygen 92% on 4L wears PRN at home * Pulmonary rehab if indicated. * F/U Evaluation for home O2 requirements prior to discharge (5) Thoracic compression fracture: Code(s): S22.000A - Wedge compression fracture of unspecified thoracic vertebra, initial encounter for closed fracture Status: Acute Assessment and Plan: * Chronic but worsening * NSAIDS/pain management * PT/OT (6) Non-small cell lung cancer: Code(s): C34.90 - Malignant neoplasm of unspecified part of unspecified bronchus or lung Status: Acute Assessment and Plan: * Recently diagnosed * Radiation November * CTA showing stable nodules * Follows outpatient with Dr. Chamberlain (7) History of DVT (deep vein thrombosis): Code(s): Z86.718 - Personal history of other venous thrombosis and embolism Status: Acute Assessment and Plan: * Resumed Xarelto (8) Hypertension: Code(s): I10 - Essential (primary) hypertension Status: Chronic Assessment and Plan: * Reviewed and stable 04/13/24 * Resumed home medications * Monitor per unit protocol (9) Thoracic aortic aneurysm without rupture: Code(s): I71.20 - Thoracic aortic aneurysm, without rupture, unspecified Status: Acute Assessment and Plan: * Stable 4.3 cm fusiform aneurysm is suprarenal abdominal aorta. * Previous CTA 01/04/24: 4.2 x 3.7 cm fusiform aortic aneurysm at the thoracic hiatus. * Monitor and control BP Plan Code status: DNR DVT prophylaxis: Xarelto Stress ulcer prophylaxis: Protonix 40 daily PT/OT notes: PT/OT pending Disposition: patient was admitted to the medical unit for further evaluation and treatment of acute respiratory failure with hypoxia secondary to pneumonia, COPD exacerbation, and new diagnosis of [id number] lung cancer with radiation treatment November. will continue with current treatment and wean O2 as needed he will need follow-up oxygen study to determine if he needs oxygen time study analyst prior to discharge. Patient wants to return home with outpatient PT/OT. Subjective Date/time seen: 04/15/24 08:17 Review of Systems Review of Systems: All systems reviewed & are unremarkable except as noted in HPI and below Exam Narrative: General: appears comfortable, in no acute distress Respiratory: breathing is unlabored with even chest rise/fall, lungs are clear without wheezing, rhonchi, and crackles Cardiovascular: Rate and rhythm regular, normal s1s2, no murmur Abdomen: Soft, round, non-tender, active bowel sounds Extremities: No cyanosis, edema, clubbing. Pulses 2/2 Neuro: A&O x 4 Skin: Warm, dry, intact Objective Data Vital Signs Vital Signs: Vital Signs - 24 hr 04/14/24 08:40 04/14/24 08:40 04/14/24 10:50 Temperature Pulse Rate 110 H Respiratory Rate Blood Pressure Pulse Oximetry 98 Oxygen Delivery Nasal Cannula Nasal Cannula Oxygen Flow Rate 3 2 04/14/24 12:57 04/14/24 12:00 04/14/24 14:26 Temperature Pulse Rate 76 68 Respiratory Rate 18 Blood Pressure Pulse Oximetry 97 Oxygen Delivery Nasal Cannula Oxygen Flow Rate 2 04/14/24 14:34 04/14/24 14:00 04/14/24 16:00 Temperature 97.9 F Pulse Rate 62 84 79 Respiratory Rate 18 18 Blood Pressure 114/66 Pulse Oximetry 99 Oxygen Delivery Oxygen Flow Rate 04/14/24 19:49 04/14/24 20:28 04/14/24 21:52 Temperature 98.1 F Pulse Rate 91 Respiratory Rate 20 Blood Pressure 132/76 Pulse Oximetry 99 95 96 Oxygen Delivery Nasal Cannula Nasal Cannula Oxygen Flow Rate 2 2 04/14/24 21:52 04/14/24 22:03 04/15/24 05:22 Temperature 97.5 F L Pulse Rate 72 86 91 Respiratory Rate 18 18 18 Blood Pressure 112/73 Pulse Oximetry 96 Oxygen Delivery Oxygen Flow Rate 04/14/24 20:00 04/15/24 00:00 04/15/24 04:00 Temperature Pulse Rate 84 84 81 Respiratory Rate Blood Pressure Pulse Oximetry Oxygen Delivery Oxygen Flow Rate 04/15/24 06:58 04/15/24 06:58 04/15/24 07:10 Temperature Pulse Rate 88 86 Respiratory Rate 18 18 Blood Pressure Pulse Oximetry 97 Oxygen Delivery Nasal Cannula Oxygen Flow Rate 2 Intake/Output Intake/Output: Intake & Output 04/12/24 04/13/24 04/14/2404/15/24 23:59 23:59 23:59 23:59 Intake Total 1070 1260 490 Balance 1070 1260 490 Meds/Results Medications: Active Medications Generic Name Dose Route Start Last Admin Trade Name Freq PRN Reason Stop Dose Admin Acetaminophen 650 mg 04/13/24 08:12 Acetaminophen 325 Mg Tablet PO Q4H PRN Mild Pain (1-3) or Fever Hydrocodone Bitart/Acetaminophen 1 tab 04/13/24 08:12 Hydrocodone/Acetaminophen (*Crx) 5-325 Mg Tablet PO Q4H PRN Moderate Pain (4-6) Albuterol 1 puff 04/13/24 08:14 Albuterol Sulfate (*Sp) Aerosol 1 Puff INHALATION Q4H PRN Wheezing Albuterol/Ipratropium 3 ml 04/13/24 08:00 04/15/24 06:58 Ipratropium 0.5 Mg/Albuterol Sulfate 2.5 Mg Ampul.Neb 3 Ml INHALATION 3 ml Q6HRT JOSE Administration Albuterol/Ipratropium 3 ml 04/13/24 08:14 Ipratropium 0.5 Mg/Albuterol Sulfate 2.5 Mg Ampul.Neb 3 Ml INHALATION Q6H PRN Wheezing Amlodipine Besylate 5 mg 04/13/24 18:00 04/14/24 17:13 Amlodipine Besylate 5 Mg Tablet PO 5 mg QPM JOSE Administration Atenolol 100 mg 04/13/24 09:00 04/14/24 08:40 Atenolol 50 Mg Tablet PO 100 mg DAILY JOSE Administration Azithromycin 500 mg 04/14/24 09:00 04/14/24 08:40 Azithromycin 250 Mg Tablet PO 04/17/24 09:01 500 mg DAILY JOSE Administration Guaifenesin 1,200 mg 04/13/24 09:00 04/14/24 21:28 Guaifenesin 12 Hr 600 Mg Tabcr PO 1,200 mg Q12HR JOSE Administration Ceftriaxone Sodium 1 gm in 50 mls @ 100 mls/hr 04/14/24 06:00 04/15/24 06:07 Rocephin 1 Gm/Ns 50 Ml IVPB 100 mls/hr Q24H JOSE Administration Methylprednisolone Sodium Succinate 60 mg 04/13/24 08:30 04/15/24 06:07 Methylprednisolone Sod Succ 125 Mg Vial IV PUSH 60 mg Q8HR JOSE Administration Multivitamins Therapeutic 1 tablet 04/13/24 09:00 04/14/24 08:40 Multivitamins Therapeutic Tab (*Bkc) PO 1 tablet DAILY JOSE Administration Ondansetron HCl 4 mg 04/13/24 08:12 Ondansetron Inj 4 Mg/2 Ml Vial IV PUSH Q6H PRN Nausea And Vomiting Pantoprazole Sodium 40 mg 04/13/24 09:00 04/14/24 08:41 Pantoprazole 40 Mg Tablet PO 40 mg QAM JOSE Administration Rivaroxaban 20 mg 04/13/24 17:00 04/14/24 17:13 Rivaroxaban 20 Mg Tablet PO 20 mg DAILY@1700 JOSE Administration Simvastatin 20 mg 04/13/24 09:00 04/14/24 08:41 Simvastatin 20 Mg Tablet PO 20 mg QAM JOSE Administration Radiology Results: ITS Impressions Chest X-Ray 04/12/24 21:01 IMPRESSION: Focal infiltrate or atelectasis in the left midlung, obscuring the superior segment left lower lobe pulmonary mass Mild infiltrate or atelectasis in the left lung base Small right lower lung nodular mass COPD Chest CTA 04/13/24 06:32 IMPRESSION: 1. Stable 1.7 cm nodule in left lung upper lobe, consistent with primary bronchogenic carcinoma. 2. 7 mm nodule in right lung lower lobe, which measured 6 mm on 06/04/2023 and 5 mm on 12/18/22. This finding is suspicious for primary bronchogenic carcinoma. 3. Airspace opacities in left upper lobe and left lower lobe, consistent with pneumonia. 4. Severe emphysema. 5. T7 burst fracture, worsened from 01/28/2024. 6. 4.3 cm fusiform aneurysm is suprarenal abdominal aorta. 7. No pulmonary embolus. Labs Labs: Laboratory Results - last 24 hr 04/15/24 05:36 WBC 7.7 RBC 4.14 L Hgb 13.5 L Hct 40.1 L MCV 96.9 MCH 32.6 MCHC 33.7 RDW 13.5 Plt Count 201 MPV 10.0 Immature Gran % (Auto) 0.5 Neut % (Auto) 87.6 H Lymph % (Auto) 7.6 L [place] % (Auto) 4.3 Eos % (Auto) 0.0 Baso % (Auto) 0.0 L Lymph # (Auto) 0.59 L [place] # (Auto) 0.3 Eos # (Auto) 0.0 Baso # (Auto) 0.0 Abs Immat Gran (auto) 0.04 H Absolute Neuts (auto) 6.8 H Absolute Nucleated RBC 0.000 Nucleated RBC % 0.0 Sodium 134 L Potassium 3.2 L Chloride 97 L Carbon Dioxide 31 H Anion Gap 6 BUN 16 Creatinine 0.40 L Estim Creat Clear Calc 128 Estimated GFR > 60 Glucose 173 H Calcium 8.9 Total Bilirubin 0.4 AST 36 ALT 32 Alkaline Phosphatase 85 Total Protein 7.0 Albumin 3.7 Quality VTE Prophylaxis VTE prophylaxis: pharmacologic ordered
[2024-04-15] MEDS: SIMVASTATIN 20 MG TABLET PO (08:41)
[2024-04-15] MEDS: guaiFENesin 12 HR 600 MG TABCR 1200 MG PO (08:41)
[2024-04-15] MEDS: atenoloL 50 MG TABLET 100 MG PO (08:41)
[2024-04-15] MEDS: AZITHROMYCIN 250 MG TABLET 500 MG PO (08:41)
[2024-04-15] MEDS: MULTIVITAMINS THERAPEUTIC TAB (*BKC) 1 TABLET PO (08:42)
[2024-04-15] MEDS: PANTOPRAZOLE 40 MG TABLET PO (08:42)
--- NOTE | 2024-04-15 12:11 | P.DS_ITS ---
DS: Admitting Diagnosis Discharge Date 04/15 Admitting Diagnosis shortness of breath DS: Discharge Diagnosis Discharge Diagnosis (1) Acute and chronic respiratory failure with hypoxia: Code(s): J96.21 - Acute and chronic respiratory failure with hypoxia Status: Acute (2) Pneumonia: Code(s): J18.9 - Pneumonia, unspecified organism Status: Acute (3) Radiation pneumonitis: Code(s): J70.0 - Acute pulmonary manifestations due to radiation Status: Acute (4) COPD exacerbation: Code(s): J44.1 - Chronic obstructive pulmonary disease with (acute) exacerbation Status: Acute (5) Thoracic compression fracture: Code(s): S22.000A - Wedge compression fracture of unspecified thoracic vertebra, initial encounter for closed fracture Status: Acute (6) Non-small cell lung cancer: Code(s): C34.90 - Malignant neoplasm of unspecified part of unspecified bronchus or lung Status: Acute (7) History of DVT (deep vein thrombosis): Code(s): Z86.718 - Personal history of other venous thrombosis and embolism Status: Acute (8) Hypertension: Code(s): I10 - Essential (primary) hypertension Status: Chronic (9) Thoracic aortic aneurysm without rupture: Code(s): I71.20 - Thoracic aortic aneurysm, without rupture, unspecified Status: Acute Plan 1) Acute and chronic respiratory failure with hypoxia: Code(s): J96.21 - Acute and chronic respiratory failure with hypoxia Status: Acute Assessment and Plan: * secondary to pneumonia, COPD exacerbation, non-small cell lung cancer * patient usually wears oxygen p.r.n. requiring 4 L at this time at all times wean as tolerated * will need f/u walk study prior to discharge * Aiopjfu29/26/24: * Oxygen weaned to 2L (2) Pneumonia: Code(s): J18.9 - Pneumonia, unspecified organism Status: Acute Assessment and Plan: * Bronchodilators. * CTA: Negative for PE/Stable nodules LT/RT lobes/ opacities in the left upper lobe and left lower lobe consistent with pneumonia * incentive spirometry while awake. * sputum culture ordered * influenza/COVID/RSV Negative * mycoplasma, Legionella and pneumococcal pending * ceftriaxone and azithromycin ( MRSA pending) patient immunocompromised * supplemental oxygen therapy to maintain oxygen 92% on 4L NC usually wears oxygen PRN * monitor for signs of in sepsis * former smoker * mucolytics * antipyretics (3) Radiation pneumonitis: Code(s): J70.0 - Acute pulmonary manifestations due to radiation Status: Acute Assessment and Plan: * Recent radiation in November for non-small cell carcinoma * SEE ABOVE PNA (4) COPD exacerbation: Code(s): J44.1 - Chronic obstructive pulmonary disease with (acute) exacerbation Status: Acute Assessment and Plan: * Bronchodilators. * Chest x-ray Review * incentive spirometry while awake. * steroids initiated * azithromycin 500 x 1 day/250 daily/ ceftriaxone * supplemental oxygen therapy to maintain oxygen 92% on 4L wears PRN at home * Pulmonary rehab if indicated. * F/U Evaluation for home O2 requirements prior to discharge (5) Thoracic compression fracture: Code(s): S22.000A - Wedge compression fracture of unspecified thoracic vertebra, initial encounter for closed fracture Status: Acute Assessment and Plan: * Chronic but worsening * NSAIDS/pain management * PT/OT (6) Non-small cell lung cancer: Code(s): C34.90 - Malignant neoplasm of unspecified part of unspecified bronchus or lung Status: Acute Assessment and Plan: * Recently diagnosed * Radiation November * CTA showing stable nodules * Follows outpatient with Dr. Chamberlain (7) History of DVT (deep vein thrombosis): Code(s): Z86.718 - Personal history of other venous thrombosis and embolism Status: Acute Assessment and Plan: * Resumed Xarelto (8) Hypertension: Code(s): I10 - Essential (primary) hypertension Status: Chronic Assessment and Plan: * Reviewed and stable 04/13/24 * Resumed home medications * Monitor per unit protocol (9) Thoracic aortic aneurysm without rupture: Code(s): I71.20 - Thoracic aortic aneurysm, without rupture, unspecified Status: Acute Assessment and Plan: * Stable 4.3 cm fusiform aneurysm is suprarenal abdominal aorta. * Previous CTA 01/04/24: 4.2 x 3.7 cm fusiform aortic aneurysm at the thoracic hiatus. * Monitor and control BP DS: Summary Hospital Course Reason for hospitalization: shortness of breath Hospital Course: Patient is a 73-year-old male who presented to the emergency department with complaints of worsening shortness of breath. Patient states he has oxygen at home that he wears prn however for the last few days he has required to wear his oxygen at all times. Patient does have a past medical history COPD with severe emphysema, hypertension, hyperlipidemia previous DVT currently on anticoagulation Xarelto, and just recently diagnosed with non-small cell lung cancer. patient states he came to the emergency department because he concerned he had developed pneumonia. he reported shortness breath, nonproductive cough worsened in the few weeks and recent radiation therapy in November. Patient denied chest pain, fever, chills, nausea or vomiting. patient states he had been wearing his oxygen all the time and continue to use his nebulizer treatments at home but was having no relief with symptoms. patient states he is currently seeking treatment for his lung cancer with Dr. Chamberlain outpatient. CTA chest showed no pulmonary emboli however did show stable nodules in the left upper lobe, right lower lobe as well as airspace opacities in the left upper lobe and left lower lobe consistent with pneumonia. patient was given IV antibiotic, Duo nebulizers steroids in the emergency department and admitted to the medical unit for further evaluation and treatment acute respiratory failure with hypoxia secondary to pneumonia and COPD exacerbation. Patient was treated with IV antibiotics, steroids, duo nebs, and mucolytics. With the above therapies his shortness of breath and wheezing resolved. He was able to maintain his oxygen saturation on room air and required 2 L of NC with activity per o2 home evaluation. He will discharge home today in stable condition with recommended PCP follow up in 1 week. Time Spent with Patient Time attestation: Total time spent providing and/or coordinating discharge services:77 Exam Narrative: * GENERAL: Alert and oriented x 3. No acute distress. * LUNGS: Clear, diminished lung sounds throughout all A/P upper and lower lobes. No accessory muscle use. Productive cough * CARDIOVASCULAR: Regular rate and rhythm. No murmur.. S1-S2 * ABDOMEN: Soft, non tenderness and non-distended. No palpable masses. * EXTREMITIES: No edema. Non-tender * SKIN: No rashes or lesions. Skin warm, dry. * NEUROLOGIC: No focal neurological deficits. * PSYCHIATRIC: Appropriate mood and affect. DS: Data Data Completed and Pending Labs on day of discharge: Labs from last 24 hours 04/15/24 05:36 WBC 7.7 RBC 4.14 L Hgb 13.5 L Hct 40.1 L MCV 96.9 MCH 32.6 MCHC 33.7 RDW 13.5 Plt Count 201 MPV 10.0 Immature Gran % (Auto) 0.5 Neut % (Auto) 87.6 H Lymph % (Auto) 7.6 L [place] % (Auto) 4.3 Eos % (Auto) 0.0 Baso % (Auto) 0.0 L Lymph # (Auto) 0.59 L [place] # (Auto) 0.3 Eos # (Auto) 0.0 Baso # (Auto) 0.0 Abs Immat Gran (auto) 0.04 H Absolute Neuts (auto) 6.8 H Absolute Nucleated RBC 0.000 Nucleated RBC % 0.0 Sodium 134 L Potassium 3.2 L Chloride 97 L Carbon Dioxide 31 H Anion Gap 6 BUN 16 Creatinine 0.40 L Estim Creat Clear Calc 128 Estimated GFR > 60 Glucose 173 H Calcium 8.9 Total Bilirubin 0.4 AST 36 ALT 32 Alkaline Phosphatase 85 Total Protein 7.0 Albumin 3.7 Preliminary micro results at discharge 04/14/24 15:46 Sputum Culture - Preliminary Sputum 04/13/24 10:45 Blood Culture - Preliminary Blood 04/13/24 08:40 Blood Culture - Preliminary Blood Discharge Plan Discharge Attending physician on discharge: Tucker Hernandez Discharging Clinician: Michelle Tejeda Anticipated Discharge Date/Time: 04/15/24 11:55 Patient Disposition: Home, Self-Care Activity: september shower Diet: heart healthy Discharge Instructions: You were admitted with a COPD exacerbation and pneumonia. We started you on IV antibiotics, nebulizers, and steroids and her symptoms have improved. Your lungs are clear without wheezing today. You are back on your baseline oxygen of 2 L NC with activity and no oxygen at rest per home o2 evaluation completed today. You will discharge home today with a course of prednisone 40 mg daily to be taken through 04/22. You will also discharged with Augmentin (last dose 04/17) and azithromycin 500 mg daily (last dose 04-17). These are antibiotics for your pneumonia. You should also continue with duo neb (albuterol/ipratropium) every six hours while awake through 04/17 and then you can use every six hours as needed for shortness of breath. Please continue your previously prescribed inhalers. Please monitor for worsening shortness of breath, increased sputum production, fever, chills, or body aches. If you experience any of these symptoms please return for evaluation. Please contact your PCP and schedule a follow up to be seen in the next 1 week. Please keep your regularly scheduled pulmonology appointment. Patient Instructions: Antibiotic Form, Rivaroxaban (By mouth), Pain Management (DC), COPD (Chronic Obstructive Pulmonary Disease) (DC), Community Acquired Pneumonia (DC) Stand Alone Forms: General Discharge Information Follow-up/Referrals: Nikhil,Martin Whaley MD [Primary Care Provider] - Discharge Medications: New ipratropium-albuterol 0.5 mg-3 mg(2.5 mg base)/3 mL Solution For Nebulization 3 ml inhalation Q6H Qty: 180 0RF azithromycin [Zithromax] 250 mg Tablet 500 mg PO DAILY 2 Days Qty: 4 0RF amoxicillin-pot clavulanate 875-125 mg tablet 1 tablet PO Q12H 2 Days Qty: 4 0RF prednisone 50 mg tablet 50 mg PO DAILY 7 Days Qty: 7 0RF (DME) nebulizer and compressor [Easy Neb Compressor Nebulizer] Device See Rx Instructions .Route Qty: 1 0RF Rx Instructions: As directed Every six hours as needed for shortness of breath Continued multivitamin [Multiple Vitamins] Tablet 1 tablet PO DAILY albuterol sulfate [Ventolin HFA] 90 mcg/actuation HFA aerosol inhaler 1 inhalation INHALATION Q4H PRN (Reason: Wheezing) Xarelto 20 mg tablet 20 mg PO QPM Breztri Aerosphere 160-9-4.8 mcg/actuation HFA aerosol inhaler 2 inh inhalation QAM AND QPM Qty: 10.7 11RF Rx Instructions: rinse and spit amlodipine 5 mg tablet 5 mg PO QPM atenolol 100 mg tablet 100 mg PO DAILY acetaminophen [Mapap (acetaminophen)] 325 mg Tablet 650 mg PO Q4H PRN (Reason: Mild Pain (1-3) Or Fever) Qty: 30 0RF simvastatin 20 mg tablet 20 mg PO QAM pantoprazole [Protonix] 20 mg tablet,delayed release (DR/EC) 40 mg PO DAILY guaifenesin [Mucinex] 1,200 mg Tablet Extended Release 12hr 1,200 mg PO BID calcium carbonate-vitamin D3 600 mg(1,500mg) -500 unit Tablet Extended Release 24 Hr 1 tablet PO DAILY (DME) oxygen See Rx Instructions .Route .MEDSUPPLY Qty: 1 0RF Rx Instructions: oxygen at 2 L per nasal cannula at rest and 6 L with activity Needs oxygen concentrator and portable O2 Discontinued ipratropium-albuterol 0.5 mg-3 mg(2.5 mg base)/3 mL solution for nebulization 3 ml inhalation Q6H PRN (Reason: Wheezing) Date of admission: 04/13/24 04:24 Primary Care Provider: Nikhil,Martin Whaley Admitting Provider: Danielle Ramos V. Attending physician on admission: Michelle Tejeda Condition: Improved Quality VTE Prophylaxis VTE prophylaxis: pharmacologic ordered
--- NOTE | 2024-04-15 12:43 | PCRCNOTE ---
Home O2 eval complete. Patient requires room air at rest and 2lpm with activity. Patient currently has Home O2 with IV Respiratory. No change in status. RN notified.
[2024-04-16 17:24] LABS: Pneumococcal Antigen Urine NOT DETECTED
[2024-04-18 21:54] LABS: Legionella pneumophila Ag Ur NOT DETECTED
== END 2024-04-15 13:25 | disposition home or self-care (01) | DRG 193 ==
LOC: ANHED 04-13 04:33 → ANH2MED 04-13 05:01
PROVIDERS: Nurse Practitioner Family; Admitting Provider Internal Medicine; Emergency Provider Student in an Organized Health Care Education/Training Program; PCP Internal Medicine; Visit Provider Nurse Practitioner Acute Care
DX: J18.9 Pneumonia, unspecified organism (principal); J96.01 Acute respiratory failure with hypoxia; S22.000A Wedge compression fracture of unspecified thoracic vertebra, initial encounter for closed fracture; C34.12 Malignant neoplasm of upper lobe, left bronchus or lung; J44.0 Chronic obstructive pulmonary disease with (acute) lower respiratory infection; J44.1 Chronic obstructive pulmonary disease with (acute) exacerbation; J70.0 Acute pulmonary manifestations due to radiation; C61 Malignant neoplasm of prostate; I10 Essential (primary) hypertension; I71.20 Thoracic aortic aneurysm, without rupture, unspecified; E78.5 Hyperlipidemia, unspecified; G47.30 Sleep apnea, unspecified; Z20.822 Contact with and (suspected) exposure to COVID-19; Z99.81 Dependence on supplemental oxygen; Z79.01 Long term (current) use of anticoagulants; Z87.891 Personal history of nicotine dependence; Z86.718 Personal history of other venous thrombosis and embolism
CPT/HCPCS: 36415; 71046; 71275; 80053; 83735; 85025; 86738; 87040; 87070; 87205; 87449; 87637; 87641; 87899; 93005; 94618; 94640; 96365; 96366; 96367; 96375; 97161; 97165; 99285; A9270; J0456; J0696; J2919; J3475; Q9967

== ENCOUNTER 2024-04-20 10:00 | Outpatient (RCR) | payer MEDICARE, OTHER, SELFPAY ==
--- NOTE | 2024-03-16 14:29 | OPREHPOC ---
Outpatient Therapy Plan of Care This is a Multidisciplinary Plan of Care that may contain components documented by all disciplines (PT, OT, and ST.) PT Problem 1 PT Problem #1 Knowledge Deficit PT Goal 1 Goal / Goal Update *indep with HEP Target Visit 10 PT Problem 2 PT Problem #2 Impaired Strength PT Goal 1 Goal / Goal Update increase strength of trunk and LE's, to improve mobility skills 1* mat strengthening: R and L LE exercises x 20 reps single leg standing x 10 seconds 2* R 3* L Target Visit 10 PT Problem 3 PT Problem #3 Impaired Functional Mobility PT Goal 1 Goal / Goal Update 1* 2 minute walking test distance of 375' 2* up/down 12 steps with 1 hand railing 3* pt report going into his basement Target Visit 10
--- NOTE | 2024-03-16 14:29 | PTOPEVAL1 ---
Assessment and note entered by Meena Velázquez, PT Evaluation Information Assessment Status Evaluation Diagnosis thoracic compression fracture ICD-10 Condition Codes (PT) M54.6,R26.9,Weakness R53.1 Onset December 2023 Subjective Information used CTLSO brace until last dr visit 03-05-24 and was cleared to not use the brace any longer; since then, has been trying to do more activity-- have a stationary bike and treadmill at home, using 6-7 minutes at time; have a basement, but have not been down there-- used to go downstairs all the time; since Activity: prior to thoracic pain-- indep with all home chores, active and did not use oxygen except at night; no limitations with walking or activity Reported Pain Level Pain Score Self Report Additional Pain Score Comments pain range of 0-4/10 in L trunk- sore, tight, tender increase with walking about 7 minutes; decrease pain: resting is not taking any pain meds Assessment PT Clinical Summary Donta has the diagnosis of weakness and decreased mobility s/p thoracic compression fracture. He was wearing a thoracic brace and not doing much due to pain and the brace. Now, he does not have to wear the brace and does not have any restrictions from the dr. Self assessment Oswestry rating of 34% limitation in activity. Prior to the thoracic pain- he was active and did not have any limitations in activity level. Now, requires oxygen at 2L/min all of the time, previously was with sleeping only. Medical history: prostate cancer; lung cancer with radiation--completed November. With the evaluation: decreased LE strength; 2 minute walking test distance of 275' with increase SOB and fatigue; stairs- at 8 required rest and oxygen saturation decreased to 82%; Skilled PT services are indicated to increase LE strength, gait and mobility skills, with education for HEP and safety with mobility. Monitor oxygen saturation and fatigue level during sessions. Plan of Care Interventions Gait Training,Neuro Re-education,Patient/Caregiver Education,Therapeutic Activities,Therapeutic Exercise PT Services Indicated Yes Treatment Frequency and 2x/wk for 10 visits Duration These treatments will address the objective and functional deficits as defined above. The patient will be advanced safely and appropriately in order for the patient to progress towards his/her prior level of function. Additional exercises will be introduced and as well as a comprehensive home exercise program upon discharge, if needed, ?to ensure carryover of functional gains achieved in the clinic. This treatment plan has been reviewed and agreement upon by the patient.
--- NOTE | 2024-03-25 10:59 | PCPTNOTE ---
Pt canceled due to illness.
--- NOTE | 2024-03-27 10:17 | PCPTNOTE ---
Pt cancelled appt. today due to illness.
--- NOTE | 2024-04-20 10:46 | PTOPDC ---
Assessment and note entered by Meena Velázquez, PT Discharge Report Assessment Status Discharge Diagnosis thoracic compression fracture ICD-10 Condition Codes (PT) M54.6,R26.9,Weakness R53.1 Onset December 2023 Subjective Information was in the hospital for pneumonia last week; still on steroid meds; better now, trying to get more active again--walking on the treadmill for 15 minutes, 2x/day; been doing all the exercises too; have been going into the basement few times/ day; no falls; Reported Pain Level Pain Score 0: Self Report Assessment PT Clinical Summary Donta has received 7 PT sessions. He called and canceled 2 appointments due to being ill. Compared to the initial evaluation: no pain in his back; he has increased R and L LE strength with mat and standing exercises; 2 minute walking test distance from 275' with reports of SOB and tired, to 340' without SOB; able to go up/down stairs without any issues, performing at home, indep with 1 hand railing; self assessment functional score with back index rating from 34% to 14% limitation in activity level; education completed for HEP. The goals were partially met. Discharge PT services. He is to continue with the HEP, and increase walking/activity as tolerated. Plan of Care PT Services Indicated No
== END 2024-04-20 13:38 | disposition home or self-care (01) ==
LOC: ANHPT 10:00
PROVIDERS: PCP Internal Medicine; Visit Provider Neurological Surgery
DX: S22.000A Wedge compression fracture of unspecified thoracic vertebra, initial encounter for closed fracture (principal)
CPT/HCPCS: 97110; 97161; 97530

== ENCOUNTER 2024-04-24 10:54 | Outpatient (CLI) | payer MEDICARE, OTHER, SELFPAY ==
[2024-04-24 11:12] LABS: Basophils Percent Auto 0.1 % (0.2-1.2); Eosinophils Absolute Auto 0.3 K/mm3 (0-0.3); Hematocrit 42.2 % (42.0-52.0); Immature Granulocyte Absolute 0.17 K/mm3 (0.00-0.031); Immature Granulocyte Percent A 1.2 % (0-0.5); Lymphocytes Absolute Auto 2.83 K/mm3 (0.9-3.2); Lymphocytes Percent Auto 19.7 % (18.3-44.2); Mean Corpuscular HGB Conc 33.2 g/dl (32-36); Mean Corpuscular Hemoglobin 32.1 pg (26-34); Mean Corpuscular Volume 96.8 fl (80-100); Mean Platelet Volume 9.5 fl (7.4-10.4); Monocytes Absolute Auto 1.2 K/mm3 (0.1-0.6); Monocytes Percent Auto 8.3 % (2.6-8.5); Neutrophils Absolute Auto 9.9 K/mm3 (1.3-6.7); Neutrophils Percent Auto 68.7 % (45.5-73.1); Platelet Count Result 196 k/mm3 (150-375); Red Blood Count 4.36 M/mm3 (4.6-6.20); Red Cell Distribution Width 13.7 % (11.5-14.5); White Blood Count 14.4 K/mm3 (4.5-10.0)
[2024-04-24 15:05] LABS: Alanine Aminotransferase 34 U/L (6-50); Albumin Level 3.5 g/dL (3.5-5.1); Alkaline Phosphatase 79 U/L (38-126); Anion Gap 3 mmol/L (4-12); Aspartate Amino Transferase 29 U/L (17-59); Bilirubin,Total 0.7 mg/dL (0.2-1.3); Blood Urea Nitrogen 25 mg/dL (9-20); Calcium 8.6 mg/dL (8.4-10.2); Carbon Dioxide 36 mmol/L (22-30); Chloride 95 mmol/L (98-107); Estimated Glomerular Filt Rate > 60; Glucose 90 mg/dL (65-110); Potassium 4.2 mmol/L (3.4-5.0); Sodium 134 mmol/L (137-145)
== END 2024-04-24 10:55 | disposition home or self-care (01) ==
PROVIDERS: PCP Internal Medicine; Visit Provider Internal Medicine Hematology & Oncology
DX: C34.92 Malignant neoplasm of unspecified part of left bronchus or lung (principal)
CPT/HCPCS: 36415; 80053; 85025

== ENCOUNTER 2024-05-07 11:56 | Outpatient (CLI) | payer MEDICARE, OTHER, SELFPAY ==
--- NOTE | ~2024-05-07 | PE_ITS ---
EXAMINATION: PET skull to mid thigh DATE: 05/07/2024 14:48 INDICATION: Malignant neoplasm of lower lobe, left lung. TECHNIQUE: Blood glucose level was 99 mg/dL. 10.2 mCi of 18-fluorodeoxyglucose (18-FDG) was administe red i.v. Low dose computed tomography (CT) images were acquired from the base of the brain to the pro ximal thighs for attenuation correction and anatomic localization. Automated exposure control was emp loyed. Dose-length product (DLP) was 792 mGy-cm. Positron emission tomography (PET) images were acqui red in the same distribution. COMPARISON: PET/CT 10/15/2023, chest CT 04/13/2024 FINDINGS: Head/neck: There are no pathologically enlarged lymph nodes. Chest: There is a 2.9 cm subcutaneous cyst in left posterior thorax, likely a sebaceous cyst. There i s severe emphysema. There is a 1.6 cm nodule at left lung upper lobe. There are airspace opacities in left upper lobe. There are airspace opacities in basilar left lower lobe. There is a 7 mm nodule in right lower lobe. There is a 4 mm nodule lingula. There is a small left pleural effusion. The heart s ize is normal. There are coronary artery calcifications. No pericardial effusion. There are calcifica tions of the aortic valve. Again seen is a T7 burst fracture. Abdomen/pelvis/proximal thighs: The liver, gallbladder, spleen, pancreas, and adrenal glands are norm al. There are bilateral inguinal hernias containing fat. There is diverticulosis of the colon without evidence of diverticulitis. The appendix is normal. There are no dilated loops of bowel. There are n o pathologically enlarged lymph nodes. There is no free intraperitoneal fluid. There is a 4.1 cm fusi form aneurysm of infrarenal aorta. There is a 4.3 cm fusiform aneurysm of aorta at the diaphragm. The re is no osseous malignancy. IMPRESSION: 1. 1.6 cm nodule in left lung upper lobe without increased activity, consistent with primary bronchog enic carcinoma. 2. 7 mm nodule in right lung lower lobe without increased activity suspicious for primary bronchogeni c carcinoma. 3. Stable airspace opacities in left upper lobe which may be pneumonia or radiation pneumonitis. Impr allegra airspace opacities and basilar left lower lobe, consistent with pneumonia. 4. Small left pleural effusion. Reviewed, dictated and finalized at location A. BOTOMIST PRN IMPRESSION: 1. 1.6 cm nodule in left lung upper lobe without increased activity, consistent with primary bronchogenic carcinoma. 2. 7 mm nodule in right lung lower lobe without increased activity suspicious f or primary bronchogenic carcinoma. 3. Stable airspace opacities in left upper lobe which may be pneumonia or radia tion pneumonitis. Improved airspace opacities and basilar left lower lobe, cons istent with pneumonia. 4. Small left pleural effusion.
[2024-05-07 12:29] LABS: Glucose Point of Care 99 mg/dl (65-105)
== END 2024-05-07 11:57 | disposition home or self-care (01) ==
PROVIDERS: PCP Internal Medicine; Visit Provider Radiology Radiation Oncology
DX: C34.32 Malignant neoplasm of lower lobe, left bronchus or lung (principal); R91.8 Other nonspecific abnormal finding of lung field; R91.1 Solitary pulmonary nodule; J90 Pleural effusion, not elsewhere classified
CPT/HCPCS: 78815; A9552

== ENCOUNTER 2024-07-06 15:25 | Emergency (ER) | payer MEDICARE, OTHER, SELFPAY ==
[2024-07-06 15:55] VITALS: BP 102/56; PULSE 88; RESP 16; TEMP 36.4; O2SAT 100
--- NOTE | 2024-07-06 16:40 | ED_ITS ---
HPI - General Adult General Chief complaint: Dental/Oral <AP Alfaro Last Filed: 07/06/24 17:02> Stated complaint: thrush 6 for weeks, 3rd med not better <AP Alfaro Last Filed: 07/06/24 17:02> Time Seen by Provider: 07/06/24 16:40 <AP Alfaro Last Filed: 07/06/24 17:02> Focused HPI: Patient is a 73 y/o male, with PMH of COPD on chronic home O2, non-small cell lung cancer, who presents to the ED with c/o mouth ulcers. Patient reports he has been on 3 different medications for thrush over the last 6 weeks including, nystatin, clotrimazole, fluconazole. He states numbness these therapies have improved his symptoms. Symptoms continue to worsen, to the point he is having difficulty swallowing/keeping down food or drink. Also c/o loss of voice, drooling, spitting up mucus, heartburn, and a sore on the R side of his jaw that began last night. Denies fevers, N/V, increased SOB. Patient finished radiation treatment for lung CA in November of last year. His next scan is August 04. GENERAL: Elderly, thin, and in no acute distress. HEAD: Normocephalic, atraumatic. ENT: Diffuse ulcerative lesions to inner oral mucosa, tongue, posterior pharynx. No tonsillar hypertrophy or exudate. Uvula is midline and nonedematous. No stridor or distress. CHEST: Clear to auscultation. ?No respiratory distress. On chronic 2L NC HEART: Regular rate and rhythm.? NEURO: ?Alert and oriented x3. Patient screened in triage and initial orders placed.? ?Additional care and disposition to be based upon?diagnostic testing and treatment. <AP Alfaro Last Filed: 07/06/24 17:02> Source: patient <AP Alfaro Last Filed: 07/06/24 17:02> Mode of arrival: ambulatory <AP Alfaro Last Filed: 07/06/24 17:02> Limitations: no limitations <AP Alfaro Last Filed: 07/06/24 17:02> Related Data Home medications: Home Medications ?Medication ?Instructions ?Recorded ?Confirmed ?Last Taken ?Type albuterol sulfate 90 mcg/actuation 1 inhalation inhalation Q4H PRN 05/27/19 04/13/24 01/04/24 History aerosol inhaler (Ventolin HFA) Wheezing multivitamin (Multiple Vitamins 1 tablet PO DAILY 05/27/19 04/13/24 01/03/24 History tablet) rivaroxaban 20 mg tablet (Xarelto) 20 mg PO QPM 05/27/19 04/13/24 01/03/24 History amlodipine 5 mg tablet 5 mg PO QPM 06/11/22 04/13/24 01/03/24 History atenolol 100 mg tablet 100 mg PO DAILY 06/11/22 04/13/24 01/03/24 History pantoprazole 20 mg tablet,delayed 40 mg PO DAILY 07/03/22 04/13/24 01/03/24 History release (Protonix) simvastatin 20 mg tablet 20 mg PO QAM 07/03/22 04/13/24 01/03/24 History calcium carb-vitamin D3 ER 600 mg 1 tablet PO DAILY 04/13/24 04/13/24 Unknown History (1,500 mg)-500 unit tablet,ER 24 hr guaifenesin 1,200 mg tablet, 1,200 mg PO BID 04/13/24 04/13/24 Unknown History extended release 12 hr (Mucinex) <AP Alfaro Last Filed: 07/06/24 17:02> Allergies/adverse reactions: Allergies Allergy/AdvReac Type Severity Reaction Status Date / Time No Known Allergies Allergy Verified 07/06/24 16:01 <AP Alfaro Last Filed: 07/06/24 17:02> [facility] Past Medical History Medical History: Medical History (Updated 07/06/24 @ 21:27 by Jamal Diaz MD) Pneumonia Hyperlipidemia Hypertension History of prostate cancer Thoracic aortic aneurysm without rupture History of DVT (deep vein thrombosis) L LE (chronic swelling in extremity) Sleep apnea COPD exacerbation <AP Alfaro Last Filed: 07/06/24 17:02> Surgical History Surgical History: Surgical History H/O foot surgery H/O cataract extraction <Meagan Herrera PA-C - Last Filed: 07/06/24 17:02> Family History Family History: Family History Mother Family history of lung cancer Father Acute myocardial infarction VTE (venous thromboembolism) <Meagan Herrera PA-C - Last Filed: 07/06/24 17:02> Social History Social History: Social History Social History: The patient lives at home with his who is the durable power deputy prosecuting attorney for healthcare. If she cannot be durable power deputy prosecuting attorney his daughters will be. The patient has 2 children. The patient is retired from [employer]. Patient is a former smoker. He denies any alcohol marijuana or illicit drugs. Code status full code Smoking packs per day: 3 Smoking cigarettes per day: 60.0 Years smoked: 40 Smoking pack-years: 120.00 Smoking status: Former smoker Tobacco type: cigarettes Second hand tobacco smoke exposure: No Smoking end date: 05/20/05 Alcohol intake: current Drinks per week: 14 Substance use: never Do You Feel Safe in your Home?: Yes Lack of Transportation: No Lack of Food: Never True Current Housing: I Have Housing Concerned About Future Housing: No Difficulty Paying Gas/Electric Bills: No Difficulty Paying for Meds: No Currently Unemployed: No Education: High School Diploma/GED Difficulty w/ Childcare or Family Care: No Spiritual care concerns: No <AP Alfaro Last Filed: 07/06/24 17:02> Exam 2 Narrative: APPEARANCE: No apparent distress. Head: Thrush-like plaques on the tongue with erythema of the mucous membranes EYES: EOMI, NOSE: Atraumatic NECK: Trachea midline RESPIRATORY: No increased rate of breathing CARDIOVASCULAR: RRR, ABDOMINAL: Non-distended MUSCULOSKELETAl: No obvious deformities NEURO: Alert. Moving 4/4 extremities SKIN:: Warm, dry. Normal color PSYCHIATRIC: Normal affect <Jamal Diaz MD - Last Filed: 07/06/24 21:36> Course Vital Signs Vital signs: Vital Signs Temperature 97.6 F 07/06/24 15:55 Pulse Rate 88 07/06/24 15:55 Respiratory Rate 16 07/06/24 15:55 Blood Pressure 102/56 L 07/06/24 15:55 Pulse Oximetry 100 07/06/24 15:55 Oxygen Delivery Nasal Cannula 07/06/24 15:55 Oxygen Flow Rate 2 07/06/24 15:55 Temperature 97.6 F 07/06/24 15:55 Pulse Rate 89 07/06/24 20:28 Respiratory Rate 18 07/06/24 20:28 Blood Pressure 106/78 07/06/24 20:28 Pulse Oximetry 100 07/06/24 20:28 Oxygen Delivery Nasal Cannula 07/06/24 15:55 Oxygen Flow Rate 2 07/06/24 15:55 <Meagan Herrera PA-C - Last Filed: 07/06/24 17:02> Vital Signs Temperature 97.6 F 07/06/24 15:55 Pulse Rate 88 07/06/24 15:55 Respiratory Rate 16 07/06/24 15:55 Blood Pressure 102/56 L 07/06/24 15:55 Pulse Oximetry 100 07/06/24 15:55 Oxygen Delivery Nasal Cannula 07/06/24 15:55 Oxygen Flow Rate 2 07/06/24 15:55 Temperature 97.6 F 07/06/24 15:55 Pulse Rate 89 07/06/24 20:28 Respiratory Rate 18 07/06/24 20:28 Blood Pressure 106/78 07/06/24 20:28 Pulse Oximetry 100 07/06/24 20:28 Oxygen Delivery Nasal Cannula 07/06/24 15:55 Oxygen Flow Rate 2 07/06/24 15:55 <Jamal Diaz MD - Last Filed: 07/06/24 21:36> Medical Decision Making MDM Narrative Medical decision making narrative: MSE by JOSE in triage. <AP Alfaro Last Filed: 07/06/24 17:02> MSE by JOSE in triage. -Course: 73-year-old male with COPD on inhaled corticosteroids presenting treatment resistant thrush. His has completed nystatin and clotrimazole. He will be placed on voricanzole. Patient had a recent PET scan to stage his cancer there is no evidence of cancer in his throat. Will not repeat imaging today. Patient will be discharged follow-up with ENT f/u. -DDX includes but is not limited to: Oral thrush, esophageal , neoplasm <Jamal Diaz MD - Last Filed: 07/06/24 21:36> Vital Signs Vital Signs: Vital Signs Temperature 97.6 F 07/06/24 15:55 Pulse Rate 88 07/06/24 15:55 Respiratory Rate 16 07/06/24 15:55 Blood Pressure 102/56 L 07/06/24 15:55 Pulse Oximetry 100 07/06/24 15:55 Oxygen Delivery Nasal Cannula 07/06/24 15:55 Oxygen Flow Rate 2 07/06/24 15:55 Temperature 97.6 F 07/06/24 15:55 Pulse Rate 89 07/06/24 20:28 Respiratory Rate 18 07/06/24 20:28 Blood Pressure 106/78 07/06/24 20:28 Pulse Oximetry 100 07/06/24 20:28 Oxygen Delivery Nasal Cannula 07/06/24 15:55 Oxygen Flow Rate 2 07/06/24 15:55 <Meagan Herrera PA-C - Last Filed: 07/06/24 17:02> Vital Signs Temperature 97.6 F 07/06/24 15:55 Pulse Rate 88 07/06/24 15:55 Respiratory Rate 16 07/06/24 15:55 Blood Pressure 102/56 L 07/06/24 15:55 Pulse Oximetry 100 07/06/24 15:55 Oxygen Delivery Nasal Cannula 07/06/24 15:55 Oxygen Flow Rate 2 07/06/24 15:55 Temperature 97.6 F 07/06/24 15:55 Pulse Rate 89 07/06/24 20:28 Respiratory Rate 18 07/06/24 20:28 Blood Pressure 106/78 07/06/24 20:28 Pulse Oximetry 100 07/06/24 20:28 Oxygen Delivery Nasal Cannula 07/06/24 15:55 Oxygen Flow Rate 2 07/06/24 15:55 <Jamal Diaz MD - Last Filed: 07/06/24 21:36> Lab Data Result diagrams: 07/06/24 19:13 07/06/24 19:13 <Meagan Herrera PA-C - Last Filed: 07/06/24 17:02> Labs: Lab Results 07/06/24 Range/Units 19:13 WBC 8.6 (4.5-10.0) K/mm3 RBC 5.11 (4.6-6.20) M/mm3 Hgb 16.3 (14.0-18.0) g/dL Hct 49.7 (42.0-52.0) % MCV 97.3 (80-100) fl MCH 31.9 (26-34) pg MCHC 32.8 (32-36) g/dl RDW 12.8 (11.5-14.5) % Plt Count 268 (150-375) k/mm3 MPV 10.2 (7.4-10.4) fl Immature Gran % (Auto) 0.9 H (0-0.5) % Neut % (Auto) 53.1 (45.5-73.1) % Lymph % (Auto) 29.4 (18.3-44.2) % [place]tinger % (Auto) 12.3 H (2.6-8.5) % Eos % (Auto) 3.6 (0-4.4) % Baso % (Auto) 0.7 (0.2-1.2) % Lymph # (Auto) 2.53 (0.9-3.2) K/mm3 Hettinger # (Auto) 1.1 H (0.1-0.6) K/mm3 Eos # (Auto) 0.3 (0-0.3) K/mm3 Baso # (Auto) 0.1 (0.0-0.1) K/mm3 Abs Immat Gran (auto) 0.08 H (0.00-0.031) K/mm3 Absolute Neuts (auto) 4.6 (1.3-6.7) K/mm3 Absolute Nucleated RBC 0.000 (0.0-0.012) K/mm3 Nucleated RBC % 0.0 (0.0-0.2) % Sodium 135 L (137-145) mmol/L Potassium 4.3 (3.4-5.0) mmol/L Chloride 92 L (98-107) mmol/L Carbon Dioxide 32 H (22-30) mmol/L Anion Gap 11 (4-12) mmol/L BUN 15 D (9-20) mg/dL Creatinine 0.52 L (0.7-1.3) mg/dL Estim Creat Clear Calc 99 ml/min Estimated GFR > 60 (59 - ) Glucose 96 (65-110) mg/dL Calcium 9.6 (8.4-10.2) mg/dL Magnesium 1.6 (1.6-2.3) mg/dL Total Bilirubin 0.6 (0.2-1.3) mg/dL AST 32 (17-59) U/L ALT 31 (6-50) U/L Alkaline Phosphatase 101 (38-126) U/L Total Creatine Kinase 31 L (55-170) U/L Total Protein 7.0 (6.3-8.2) g/dL Albumin 3.7 (3.5-5.1) g/dL <Meagan Herrera PA-C - Last Filed: 07/06/24 17:02> Lab Results 07/06/24 Range/Units 19:13 WBC 8.6 (4.5-10.0) K/mm3 RBC 5.11 (4.6-6.20) M/mm3 Hgb 16.3 (14.0-18.0) g/dL Hct 49.7 (42.0-52.0) % MCV 97.3 (80-100) fl MCH 31.9 (26-34) pg MCHC 32.8 (32-36) g/dl RDW 12.8 (11.5-14.5) % Plt Count 268 (150-375) k/mm3 MPV 10.2 (7.4-10.4) fl Immature Gran % (Auto) 0.9 H (0-0.5) % Neut % (Auto) 53.1 (45.5-73.1) % Lymph % (Auto) 29.4 (18.3-44.2) % Hettinger % (Auto) 12.3 H (2.6-8.5) % Eos % (Auto) 3.6 (0-4.4) % Baso % (Auto) 0.7 (0.2-1.2) % Lymph # (Auto) 2.53 (0.9-3.2) K/mm3 Hettinger # (Auto) 1.1 H (0.1-0.6) K/mm3 Eos # (Auto) 0.3 (0-0.3) K/mm3 Baso # (Auto) 0.1 (0.0-0.1) K/mm3 Abs Immat Gran (auto) 0.08 H (0.00-0.031) K/mm3 Absolute Neuts (auto) 4.6 (1.3-6.7) K/mm3 Absolute Nucleated RBC 0.000 (0.0-0.012) K/mm3 Nucleated RBC % 0.0 (0.0-0.2) % Sodium 135 L (137-145) mmol/L Potassium 4.3 (3.4-5.0) mmol/L Chloride 92 L (98-107) mmol/L Carbon Dioxide 32 H (22-30) mmol/L Anion Gap 11 (4-12) mmol/L BUN 15 D (9-20) mg/dL Creatinine 0.52 L (0.7-1.3) mg/dL Estim Creat Clear Calc 99 ml/min Estimated GFR > 60 (59 - ) Glucose 96 (65-110) mg/dL Calcium 9.6 (8.4-10.2) mg/dL Magnesium 1.6 (1.6-2.3) mg/dL Total Bilirubin 0.6 (0.2-1.3) mg/dL AST 32 (17-59) U/L ALT 31 (6-50) U/L Alkaline Phosphatase 101 (38-126) U/L Total Creatine Kinase 31 L (55-170) U/L Total Protein 7.0 (6.3-8.2) g/dL Albumin 3.7 (3.5-5.1) g/dL <Jamal Diaz MD - Last Filed: 07/06/24 21:36> Discharge Plan Discharge Clinical Impression: Candidiasis of mouth <Meagan Herrera PA-C - Last Filed: 07/06/24 17:02> Patient Disposition: Home, Self-Care <Meagan Herrera PA-C - Last Filed: 07/06/24 17:02> Condition: Stable <Meagan Herrera PA-C - Last Filed: 07/06/24 17:02> Instructions: Antibiotic Form, Oral Candidiasis (ED) <Meagan Herrera PA-C - Last Filed: 07/06/24 17:02> Additional Instructions: Please take work consult for your throat. You can use Magic mouthwash for mouth pain. Please follow-up with ENT listed below. Return to the ED if you develop shortness of breath or inability to swallow your secretions. <Meagan Herrera PA-C - Last Filed: 07/06/24 17:02> Patient Language: Palestinian <Meagan Herrera PA-C - Last Filed: 07/06/24 17:02> Prescriptions: New voriconazole 200 mg tablet 200 mg PO Q12H Qty: 28 0RF Rx Instructions: administer on empty stomach, at least 1 hour before or after meal(s) Magic Mouthwash (Dr. Escudero) 120 mL suspension 15 ml PO PRN Qty: 120 0RF Rx Instructions: diphenhydramine 12.5 mg/5 mL oral elixir 40 mL; Lidocaine Viscous 2 % mucosal solution 40 mL; Maalox 200 mg-200 mg-20 mg/5 mL oral suspension 40 mL; Per 120 mL No Action multivitamin [Multiple Vitamins] Tablet 1 tablet PO DAILY albuterol sulfate [Ventolin HFA] 90 mcg/actuation HFA aerosol inhaler 1 inhalation INHALATION Q4H PRN (Reason: Wheezing) Xarelto 20 mg tablet 20 mg PO QPM Breztri Aerosphere 160-9-4.8 mcg/actuation HFA aerosol inhaler 2 inh inhalation QAM AND QPM Qty: 10.7 11RF Rx Instructions: rinse and spit amlodipine 5 mg tablet 5 mg PO QPM atenolol 100 mg tablet 100 mg PO DAILY acetaminophen [Mapap (acetaminophen)] 325 mg Tablet 650 mg PO Q4H PRN (Reason: Mild Pain (1-3) Or Fever) Qty: 30 0RF simvastatin 20 mg tablet 20 mg PO QAM pantoprazole [Protonix] 20 mg tablet,delayed release (DR/EC) 40 mg PO DAILY guaifenesin [Mucinex] 1,200 mg Tablet Extended Release 12hr 1,200 mg PO BID calcium carbonate-vitamin D3 600 mg(1,500mg) -500 unit Tablet Extended Release 24 Hr 1 tablet PO DAILY ipratropium-albuterol 0.5 mg-3 mg(2.5 mg base)/3 mL Solution For Nebulization 3 ml inhalation Q6H Qty: 180 0RF azithromycin [Zithromax] 250 mg Tablet 500 mg PO DAILY 2 Days Qty: 4 0RF amoxicillin-pot clavulanate 875-125 mg tablet 1 tablet PO Q12H 2 Days Qty: 4 0RF (DME) nebulizer and compressor [Easy Neb Compressor Nebulizer] Device See Rx Instructions .Route Qty: 1 0RF Rx Instructions: As directed Every six hours as needed for shortness of breath (DME) oxygen See Rx Instructions .Route .MEDSUPPLY Qty: 1 0RF Rx Instructions: oxygen at 2 L per nasal cannula at rest and 6 L with activity Needs oxygen concentrator and portable O2 <Meagan Herrera PA-C - Last Filed: 07/06/24 17:02> Follow-up/Referrals: Nikhil,Martin Whaley MD [Primary Care Provider] - Duran Rodriguez MD [Physician] - 3 Days (Treatment resistant thrush ) <Meagan Herrera PA-C - Last Filed: 07/06/24 17:02>
--- OUTSIDE RECORDS SUMMARY | 2024-07-06 18:04 | XMS_ITS | Data Portability ---
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 Plan of Treatment Reminders Order Date Submit Date Provider Last Modified By Organization Details Last Modified Time Details Appointments Any 15 2024 09:30A M Elmer Key MD Not available Not available Not available Lab unlisted lab - CBC study [address] (Lab), [address] [place], [address], 09/17/2023 08:31:44 uric acid, serum or plasma [address] (Lab), [address] [place], [address], 09/17/2023 08:31:43 lipid panel, serum [address] (Lab), [address] [place], [address], 09/17/2023 08:31:43 CMP, serum or plasma [address] (Lab), [address] [place], [address], 09/17/2023 08:31:43 Referral None recorded. Procedures None recorded. Surgeries None recorded. Imaging None recorded. Medication Orders clotrimaz ole 10 mg mitzi 2024 025 [facility] [address] [facility], [place], [address], 06/17/2024 12:42:55 furosemid e 40 mg tablet 2023 024 [facility] [address] [facility], [place], [address], 02/20/2024 14:30:48 amlodipin e 5 mg tablet 2023 024 [facility] [address] [facility], [place], [address], 02/20/2024 14:30:48 pantopraz ole 40 mg tablet,de layed release 2023 024 [email or web address] [facility] [address] [place], [address], 09/02/2023 13:56:11 amlodipin e 10 mg tablet 2023 024 [email or web address] [facility] [address] [place], [address], 05/18/2024 12:46:53 Patient TargetsNo targets recorded. Patient Instructions Encounter Date Encounter Id Patient Instructions Last Modified By Organization Details Last Modified Time 09/02/2023 [id number] dementia rating scale-2* Not available 09/02/2023 12:11:46 alcohol misuse* Not available 09/02/2023 12:11:46 depression screening* Not available 09/02/2023 12:11:46 multi-dimensiona l health assessment questionnaire* replaced by [facility] [email or web address] Not available 09/02/2023 12:11:47 Personalized a lt Plan and Screening Recommendations Advance Directives - Do you have one? Yes Advance Directives - Do we have your advance directive on file in your health record? No, please bring in a copy at your earliest convenience Primary Prevention/Interven tion (prevents or decreases the chance of common diseases from occurring) Smoking Risk: Non Smoker Alcohol Misuse Screening: Negative Weight: Appropriate Physical activity: Need more exercise/physical activity Nutrition: Good Average Fall Risk (screened today): Low Vaccines Pneumococcal: Ordered Recommended today Recommended today, but you have declined No further needed Influenza: Your next one in the fall of this year Chronic Disease Risks Stroke: Low Risk I have no recommendations Act yoshi diagnosis, Continue current treatment plan Heart Attack: Low risk Intermediate Risk I have no recommendations Act yoshi diagnosis, Continue current treatment plan Clogging of the Arteries: Low risk Intermediate Risk I have no recommendations Act yoshi diagnosis, Continue current treatment plan Diabetes: Low Risk I have no recommendations Secondary Prevention/Interven tion (detects treatable diseases before they may cause symptoms, disability, or ) Prostate Cancer Screening: Colon Cancer Screening: Colonoscopy Date Screening Last Performed: Eye Disease Screening: Ordered Recommended today Dementia Risk: Low I have no recommendations Depression Screening: Negative [email or web address] Not available 09/02/2023 12:03:37 Reason for Referral None Reported. Results Created Date Observation Date Name Description Value Unit Range Abnormal Flag Note LastModifiedBy Organization Detail LastModifiedTime 11/14/19 24 11/14/2023 CBC W/O DIFFE RENTI AL white blood cells 5.7 x10'3 /uL 4.2-[address] [facility] (Lab) [address] [place], [address], 11/14/2023 19:13:38 11/14/19 24 11/14/2023 CBC W/O DIFFE RENTI AL red blood cells 4.75 x10'6 /uL 4.10-[address] [facility] (Lab) [address] [place], [address], 11/14/2023 19:13:38 11/14/19 24 11/14/2023 CBC W/O DIFFE RENTI AL hemoglobin 14.8 g/dL 13.2-1 7.0 Not Available [facility] (Lab) [address] [place], [address], 11/14/2023 19:13:38 11/14/19 24 11/14/2023 CBC W/O DIFFE RENTI AL hematocrit 45.4 % 39.3-[address] [facility] (Lab) [address] [place], [address], 11/14/2023 19:13:38 11/14/19 24 11/14/2023 CBC W/O DIFFE RENTI AL mean red cell volume 95.6 fL 80.0-9 7.0 Not Available [facility] (Lab) [address] [place], [address], 11/14/2023 19:13:38 11/14/19 24 11/14/2023 CBC W/O DIFFE RENTI AL mean red cell hemoglobin 31.2 pg 27.0-3 3.0 Not Available [facility] (Lab) [address] [place], [address], 11/14/2023 19:13:38 11/14/19 24 11/14/2023 CBC W/O DIFFE RENTI AL mean RBC HGB concentratio n 32.6 g/dL 31.0-3 6.0 Not Available [facility] (Lab) [address] [place], [address], 11/14/2023 19:13:38 11/14/19 24 11/14/2023 CBC W/O DIFFE RENTI AL red cell distribution width 13.7 % 11.8-1 5.5 Not Available [facility] (Lab) [address] [place], [address], 11/14/2023 19:13:38 11/14/19 24 11/14/2023 CBC W/O DIFFE RENTI AL platelets 244 x10'3 /uL 150-40 0 Not Available [facility] (Lab) [address] [place], [address], 11/14/2023 19:13:38 11/14/19 24 11/14/2023 CBC W/O DIFFE RENTI AL mean platelet volume 11.0 fL 9.0-[address] [facility] (Lab) [address] [place], [address], 11/14/2023 19:13:38 11/14/19 24 11/14/2023 COMPR EHENS YOSHI METAB OLIC PANEL sodium 134 mmol/ L 137-[address] [facility] (Lab) [address] [place], [address], 11/14/2023 19:33:35 11/14/19 24 11/14/2023 COMPR EHENS YOSHI METAB OLIC PANEL potassium 4.5 mmol/ L 3.5-5. [address] [facility] (Lab) [address] [place], [address], 11/14/2023 19:33:35 11/14/19 24 11/14/2023 COMPR EHENS YOSHI METAB OLIC PANEL chloride 98 mmol/ L 98-[address] [facility] (Lab) [address] [place], [address], 11/14/2023 19:33:35 11/14/19 24 11/14/2023 COMPR EHENS YOSHI METAB OLIC PANEL carbon dioxide 32 mmol/ L 22-30 high Not Available [facility] (Lab) [address] [place], [address], 11/14/2023 19:33:35 11/14/19 24 11/14/2023 COMPR EHENS YOSHI METAB OLIC PANEL anion gap 8.5 mmol/ L 14-22 low Not Available [facility] (Lab) [address] [place], [address], 11/14/2023 19:33:35 11/14/19 24 11/14/2023 COMPR EHENS YOSHI METAB OLIC PANEL glucose 97 mg/dL 70-99 Not Available [facility] (Lab) [address] [place], [address], 11/14/2023 19:33:35 11/14/19 24 11/14/2023 COMPR EHENS YOSHI METAB OLIC PANEL BUN 13 mg/dL 8-19 Not Available [facility] (Lab) [address] [place], [address], 11/14/2023 19:33:35 11/14/19 24 11/14/2023 COMPR EHENS YOSHI METAB OLIC PANEL creatinine 0.60 mg/dL 0.66-1 .25 low Not Available [facility] (Lab) [address] [place], [address], 11/14/2023 19:33:35 11/14/19 24 11/14/2023 COMPR EHENS YOSHI METAB OLIC PANEL GFR >60 Refer ence Range : [place] [facility] GFR Healt hy Adult : >60 mL/mi n/1.7 3 m2 Chron ic Kidne y Disea se: 15-60 mL/mi n/1.7 3 m2 Kidne y Failu re: <15/m L/min /1.73 m2 www.n iddk. nih.g ov The MDRD study equat ion has not been valid ated in child osmani <18 years of age; pregn ant women ; the elder ly >85 years of age; or in some racia l or ethni c subgr oups, such as [facility] nics. Outsi de the valid ated fredo eters , estim ated GFR is less accur ate, requi ring clini charley judgm ent on a case- by-ca se basis . Clini charley inter preta tion for other races and ages must be made by the clini balodmero. The MDRD study equat ion has not been valid ated for the evalu ation of serum creat inine relat ed to nutri brittany l statu s or medic ation usage . For perso ns <18 years of age, a pedia tric GFR calcu lator is avail able on the F websi te: https ://yariel w.liz tucker.o rg/pr ofess ional s/kdo qi/gf r_cal culat or Not Available [facility] (Lab) [address] [place], [address], 11/14/2023 19:33:35 11/14/19 24 11/14/2023 COMPR EHENS YOSHI METAB OLIC PANEL alkaline phosphatase 101 U/L 38-126 Not Available [facility] (Lab) [address] [place], [address], 11/14/2023 19:33:35 11/14/19 24 11/14/2023 COMPR EHENS YOSHI METAB OLIC PANEL alanine aminotransfe rase 16 U/L 0-50 Not Available [facility] (Lab) [address] [place], [address], 11/14/2023 19:33:35 11/14/19 24 11/14/2023 COMPR EHENS YOSHI METAB OLIC PANEL aspartate aminotransfe rase 29 U/L 15-46 Not Available [facility] (Lab) [address] [place], [address], 11/14/2023 19:33:35 11/14/19 24 11/14/2023 COMPR EHENS YOSHI METAB OLIC PANEL bilirubin, total 0.50 mg/dL 0.20-1 .30 Not Available [facility] (Lab) [address] [place], [address], 11/14/2023 19:33:35 11/14/19 24 11/14/2023 COMPR EHENS YOSHI METAB OLIC PANEL calcium 8.5 mg/dL 8.4-10 .2 Not Available [facility] (Lab) [address] [place], [address], 11/14/2023 19:33:35 11/14/19 24 11/14/2023 COMPR EHENS YOSHI METAB OLIC PANEL total protein 6.5 g/dL 6.3-8. 2 Not Available [facility] (Lab) [address] [place], [address], 11/14/2023 19:33:35 11/14/19 24 11/14/2023 COMPR EHENS YOSHI METAB OLIC PANEL albumin 4.0 g/dL 3.0-4. 4 Not Available [facility] (Lab) [address] [place], [address], 11/14/2023 19:33:35 11/14/19 24 11/14/2023 COMPR EHENS YOSHI METAB OLIC PANEL globulin 2.5 g/dL 2.6-4. 2 low Not Available [facility] (Lab) [address] [place], [address], 11/14/2023 19:33:35 11/14/19 24 11/14/2023 COMPR EHENS YOSHI METAB OLIC PANEL A/G ratio 1.6 ratio 1.0-2. 0 Not Available [facility] (Lab) [address] [place], [address], 11/14/2023 19:33:35 11/14/19 24 11/14/2023 URIC ACID SERUM uric acid 4.7 mg/dL 3.5-8. 5 Not Available [facility] (Lab) [address] [place], [address], 11/14/2023 19:33:37 11/14/19 24 11/14/2023 LIPID PANEL cholesterol 197 mg/dL 140-19 9 NIH RIC NSUS RECOM MENDA TION FOR NAN STERO L: ADULT CHILD LOW RISK: <200 <170 BORDE RLINE : <200- 239 ----- HIGH RISK: >240 >[address] [facility] (Lab) [address] [place], [address], 11/14/2023 19:33:38 11/14/19 24 11/14/2023 LIPID PANEL triglyceride s 140 mg/dL 0-150 NIH RIC NSUS REPOR T RECOM MENDA TION FOR TRIGL YCERI BHANU: ADULT CHILD LOW RISK: <150 ----- BODER LINE: 150-1 99 ----- HIGH RISK: >200 ----- Not Available [facility] (Lab) [address] [place], [address], 11/14/2023 19:33:38 11/14/19 24 11/14/2023 LIPID PANEL HDL cholesterol 61 mg/dL 40- Not Available [facility] (Lab) [address] [place], [address], 11/14/2023 19:33:38 11/14/19 24 11/14/2023 LIPID PANEL LDL cholesterol, calculated 108 mg/dL 0-130 NIH RIC NSUS REPOR T RECOM MENDA TIONS FOR LDL: ADULT CHILD LOW RISK <130 <110 (OPTI MAL LDL) <100 ----- BORDE RLINE : 130-1 59 ----- HIGH RISK: >160 >130 A TRIGL YCERI DE RESUL T >400 INVAL IDATE S THE CALCU LATIO N FOR LDL FRACT IONAT ION - THE LDL RESUL T WILL NOT BE REPOR ASHLYN. Not Available [facility] (Lab) [address] [place], [address], 11/14/2023 19:33:38 01/24/20 24 01/23/2024 XR, ribs, bilat eral No observ ation record ed. [facility] Not Available 2023 17:36:24 01/28/20 24 01/28/2024 XR, thora cic spine , 3 view No observ ation record ed. [facility] Not Available 2023 18:10:50 04/14/20 24 04/12/2024 XR, chest , 2 view No observ ation record ed. [facility] Not Available 2023 17:40:33 05/08/20 24 05/07/2024 PET, skull base to mid-t high No observ ation record ed. Not Available 2024 08:57:52 Result Notes None recorded. Problems Name Problem SNOMED Code Status Onset Date Resolution Date Notes Provider Name and Address Organization Details Recorded Time Chronic obstruct yoshi pulmonar y disease 72650780 Active Not Available [facility] 3 02:48:08 Hyperkal emia 71028117 Active Not Available [facility] 3 02:48:08 Liver function tests outside referenc e range 995802042 Active 2022 Krystina lawrence, RMA null, [place] [facility] 3 10:00:45 Postoper ative visit 371564054 Completed 201712/12/2021 Not Available [facility] 3 02:48:08 Pneumoni a 753900758 Completed 202208/20/2022 Krystina lawrence, RMA null, [place] [facility] 3 10:00:38 Gastroes ophageal reflux disease 623384877 Active 2020 Not Available [facility] 3 02:48:08 Fracture of calcaneu s 643594721 Completed 201712/12/2021 Not Available [facility] 3 02:48:08 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 365625511 Active 2016 Not Available [facility] 3 02:48:09 Prostate specific antigen above referenc e range 286640728 Active 2021 Not Available [facility] 3 02:48:09 Malignan t tumor of prostate 548236076 Active 2021 Not Available [facility] 3 02:48:09 Melanocy tic nevus 567179069 Completed Not Available [facility] 3 02:48:09 Epidermo id cyst of skin 829657217 Completed Not Available [facility] 3 02:48:09 Solitary nodule of lung 004200383 Active Not Available [facility] 3 02:48:09 Former heavy tobacco smoker 33241838280 4100 Active 2016 Not Available [facility] 3 02:48:09 History of polyp of colon 647220113 Active Not Available [facility] 3 02:48:09 Aneurysm of thoracic aorta 228197367 Active Not Available [facility] 3 02:48:09 Cough 32396138 Completed Not Available [facility] 3 02:48:09 Upper respirat ory infectio n 51643719 Completed Elmer Key MD [address], [address], [place], [address] , [facility] 3 11:11:50 Hyperlip idemia 12370321 Active Not Available [facility] 3 02:48:09 Occult blood detected in feces 19258428 Active history of heme pos stools, no hemorrho ids in the past Not Available [facility] 3 02:48:10 Essentia l hyperten trey 03910344 Active Not Available [facility] 3 02:48:10 Polyp of colon 30613846 Active Not Available [facility] 3 02:48:10 Erectile dysfunct ion 174669059 Active 2020 Not Available [facility] 3 02:48:10 Gout 78887496 Active Not Available [facility] 3 02:48:10 Pleural effusion 91965114 Active 2022 Elmer Key MD [address], [address], [place], [address] , [facility] 3 10:21:33 Thrombos is of thoracic aorta 64737829 Active 2022 Elmer Key MD [address], [address], [place], [address] , [facility] 3 10:28:10 Upper respirat ory infectio n 77667229 Active 2022 Elmer Key MD [address], [address], [place], [address] , [facility] 3 11:11:50 Acid reflux 047581405 Active 2023 ROYER Santamaria null, [place] [facility] 4 11:49:02 Malignan t tumor of lung 145341139 Active 2023 Elmer Key MD [address], [address], [place], [address] , [facility] [employer] [facility] 4 11:09:13 Edema of lower extremit y 017034002 Active 2023 Elmer Key MD [address], [address], [place], [address] , [facility] [employer] [facility] 4 14:25:09 Edema 868384089 Active 2023 Elmer Key MD [address], [address], [place], [address] , [facility] [employer] [facility] 4 10:59:59 Sinusiti s 81912758 Active 2024 Rona Dunbar MA null, [facility] [employer] [facility] 5 11:36:00 Candidia sis of mouth 87627080 Active 2024 Elmer Key MD [address], [address], [place], [address] , [facility] [employer] [facility] 5 12:39:31 Problem Notes None recorded. Procedures Surgical History Date Name Laterality Status Provider Name and Address Organization Details Recorded Time 09/02/19 24 Medicare Wellness CPT Code, subsequent completed Brianna Urbina RN [facility] [employer] [facility] 09/02/2023 11:57:36 08/21/19 23 Medicare Wellness CPT Code, subsequent completed Amy Vincent RN [facility] [employer] [facility] 08/20/2022 10:29:04 Orthopedic Surgery completed Not Available [facility] 07/18/2022 02:42:55 colonoscopy completed Not Available [facility] 07/18/2022 02:42:55 Imaging Results Imaging Date Name Status LastModified by Organiz ation Details LastModified Time 01/23/2024 XR, ribs, bilateral completed [facility] Information not available 01/24/2024 17:36:24 01/28/2024 XR, thoracic spine, 3 view completed [facility] Information not available 01/28/2024 18:10:50 04/12/2024 XR, chest, 2 view completed [facility] Information not available 04/14/2024 17:40:33 05/07/2024 PET, skull base to mid-thigh completed Information not available 06/03/2024 08:57:52 Procedure Notes None recorded. Medical Equipment None Reported. Allergies No known drug allergies Medications Name Sig Start Date Stop Date Status Note LastModified by Organization Details LastModified Time amoxicill in 500 mg capsule Take 1 capsule every 8 hours by oral route for 10 days. active Not Available Not Available No t Available furosemid e 40 mg tablet TAKE 1 TABLET BY MOUTH ONCE DAILY active Not Available Not Available No t Available clotrimaz ole 10 mg mitzi Take 1 tablet 5 times a day by oral route. 2024 active per 07/06/24 patient case / ds Not Available Not Available Not Available nystatin 100,000 unit/mL oral suspensio n SWISH 5ML BY MOUTH FOUR TIMES DAILY LONG POSSIBLE THEN SWALLOW active Not Available Not Available No t Available prednison e 10 mg tablet TAKE 3 TABLETS BY MOUTH ONCE DAILY FOR 4 DAYS THEN 2 ONCE DAILY FOR 5 DAYS THEN 1 ONCE DAILY FOR 5 DAYS THEN 1/2 (ONE-LAKISHA F) ONCE DAILY FOR 5 DAYS 08/20 completed Not Available Not Available Not Available ipratropi um 0.5 mg-albute rol 3 mg (2.5 mg base)/3 mL nebulizat ion soln USE 1 AMPULE IN NEBULIZE R 4 TIMES DAILY active Not Available Not Available No t Available albuterol sulfate 2.5 mg/3 mL (0.083 %) solution for nebulizat ion USE 1 VIAL IN NEBULIZE R THREE TIMES DAILY NEEDED active Not Available Not Available No t Available azithromy ramin 250 mg tablet TAKE 2 TABLETS BY MOUTH ON DAY 1, AND THEN TAKE 1 TABLET BY MOUTH ONCE A DAY ON DAY 2 THROUGH DAY 5 05/18 completed Not Available Not Available Not Available ofloxacin 0.3 % eye drops 08/07 completed Not Available Not Available Not Available fluconazo le 150 mg tablet TAKE 1 TABLET BY MOUTH ONCE DAILY FOR 5 DAYS active Not Available Not Available No t Available benzonata te 200 mg capsule Take 1 capsule 3 times a day by oral route. active Not Available Not Available No t Available atenolol 100 mg tablet TAKE 1 TABLET BY MOUTH ONCE DAILY active Not Available Not Available No t Available hydrocodo ne 5 mg-acetam inophen 325 mg tablet Take 1 tablet every 12 hours by oral route as needed for 7 days. 08/07 completed Not Available Not Available Not Available prednison e 20 mg tablet TAKE 2 TABLETS BY MOUTH ONCE DAILY active Not Available Not Available No t Available Viagra 50 mg tablet 08/07 completed Not Available Not Available Not Available levofloxa ramin 250 mg tablet Take 2 tablets every day by oral route as directed for 7 days. active Not Available Not Available No t Available amlodipin e 5 mg tablet TAKE 1 TABLET BY MOUTH ONCE DAILY active Not Available Not Available No t Available peg-elect rolyte solution 420 gram oral solution USE DIRECTED 12/13 completed Not Available Not Available Not Available sildenafi l 100 mg tablet Take 1 tablet every day by oral route as needed. active Not Available Not Available No t Available ketorolac 0.5 % eye drops 08/07 completed Not Available Not Available Not Available oxycodone -acetamin ophen 5 mg-325 mg tablet Take 1 tablet every 8 hours by oral route for 3 days. 08/07 completed Not Available Not Available Not Available prednisol one acetate 1 % eye drops,esme pension 08/07 completed Not Available Not Available Not Available amlodipin e 10 mg tablet TAKE 1 TABLET BY MOUTH ONCE DAILY IN THE EVENING 05/18 completed decrease d to 5mg on 02/20/24 Not Available Not Available Not Available cephalexi n 500 mg capsule Take 1 capsule every 8 hours by oral route as directed for 5 days. 08/07 completed Not Available Not Available Not Available pantopraz ole 40 mg tablet,de layed release TAKE 1 TABLET BY MOUTH ONCE DAILY NEEDED active Not Available Not Available No t Available simvastat in 20 mg tablet TAKE 1 TABLET BY MOUTH ONCE DAILY active Not Available Not Available No t Available dexametha sone 4 mg tablet TAKE 1 TABLET BY MOUTH A ONE TIME DOSE . TAKE IN THE MORNING OF DAYS OF LUNG RADIATIO N, WITH FOOD. active Not Available Not Available No t Available prednison e 50 mg tablet TAKE 1 TABLET BY MOUTH ONCE DAILY FOR 5 DAYS active Not Available Not Available No t Available gabapenti n 300 mg capsule TAKE 1 CAPSULE BY MOUTH TWICE DAILY active Not Available Not Available No t Available lisinopri l 10 mg-hydroc hlorothia zide 12.5 mg tablet Take 1 tablet every day by oral route. active Not Available Not Available No t Available levofloxa ramin 500 mg tablet 04/05 completed Not Available Not Available Not Available albuterol sulfate HFA 90 mcg/actua tion aerosol inhaler INHALE 2 PUFFS BY MOUTH EVERY 4 HOURS DIRECTED active Not Available Not Available No t Available atenolol 50 mg tablet TAKE 2 TABLETS EVERY DAY 05/23 completed Not Available Not Available Not Available amoxicill in 875 mg-potass ium clavulana te 125 mg tablet TAKE 1 TABLET BY MOUTH EVERY 12 HOURS FOR 7 DAYS 05/18 completed Not Available Not Available Not Available oxycodone 5 mg tablet TAKE 1 TABLET BY MOUTH EVERY 4 HOURS NEEDED FOR PAIN . DO NOT EXCEED 6 PER 24 HOURS active Not Available Not Available No t Available azithromy ramin 500 mg tablet 10/24 completed Mon, Wed and Fri Not Available Not Available Not Available sildenafi l (pulmonar y hypertens ion) 20 mg tablet Take 3 tablets every day by oral route. 12/16 completed Not Available Not Available Not Available multivita min 2020 active Not Available Not Available Not Avai lable Pulmicort Flexhaler 180 mcg/actua tion breath activated INHALE 3 PUFFS TWICE A DAY . active Not Available Not Available No t Available Symbicort 160 mcg-4.5 mcg/actua tion HFA aerosol inhaler INHALE 2 PUFFS TWICE DAILY 08/30 completed Not Available Not Available Not Available Symbicort 80 mcg-4.5 mcg/actua tion HFA aerosol inhaler INHALE 2 PUFFS TWICE A DAY DIRECTED 04/05 completed Not Available Not Available Not Available Golytely 236 gram-22.7 4 gram-6.74 gram-5.86 gram oral solution USE DIRECTED 12/13 completed Not Available Not Available Not Available oxycodone 10 mg tablet TAKE 1 TABLET BY MOUTH EVERY 6 HOURS NEEDED FOR MODERATE PAIN. MAX DAILY AMOUNT 40 MG. active Not Available Not Available No t Available Flovent Diskus 250 mcg/actua tion powder for inhalatio n Inhale 2 inhalati ons twice a day by inhalati on route. active 2 inhalati ons twice a day Not Available Not Available Not Available Suprep Bowel Prep Kit 17.5 gram-3.13 gram-1.6 gram oral solution active Not Available Not Available Not Available Xarelto 15 mg tablet 04/05 completed Not Available Not Available Not Available Xarelto 20 mg tablet TAKE 1 TABLET BY MOUTH ONCE DAILY active Not Available Not Available No t Available Combivent Respimat 20 mcg-100 mcg/actua tion solution for inhalatio n active Not Available Not Available Not Available Anoro Ellipta 62.5 mcg-25 mcg/actua tion powder for inhalatio n INHALE ONE PUFF DAILY 10/24 completed Not Available Not Available Not Available Spiriva Respimat 1.25 mcg/actua tion solution for inhalatio n Inhale 2 puffs every day by inhalati on route. 08/30 completed Not Available Not Available Not Available Breztri Aerospher e 160 mcg-9mcg- 4.8mcg/ac tuation HFA aerosol inhaler Inhale 2 puffs twice a day by inhalati on route. 2020 active Not Available Not Available Not Avai lable Vitals Date Recorded Body height Body mass index (BMI) Body weight Body temperature Heart rate Oxygen saturation Oxygen saturation in Arterial blood by Pulse oximetry Systolic blood pressure Diastolic blood pressure Provider Name and Address Organization Details Last Updated DateTime 4 175.26 cm 25.3 kg/m2 28035.3 g 97.5 [degF] 71 /min 94 % 94 % 140 mm[Hg] 86 mm[Hg] ROYER Caro [facility] 11:44:14 Date Recorded Pain severity - 0-10 verbal numeric rating [Score] - Reported Provider Name and Address Organization Details Last Updated DateTime 09/02/2023 0 Brianna Urbina RN [facility] 09/02/2023 11:57:54 Date Recorded Body height Body mass index (BMI) Body weight Body temperature Heart rate Oxygen saturation Oxygen saturation in Arterial blood by Pulse oximetry Systolic blood pressure Diastolic blood pressure Provider Name and Address Organization Details Last Updated DateTime 4 175.26 cm 25.5 kg/m2 22632.4 8 g 96.8 [degF] 77 /min 93 % 93 % 116 mm[Hg] 70 mm[Hg] Krystina lynn ROYER [facility] 4 10:51:22 Date Recorded Body height Body mass index (BMI) Body weight Body temperature Heart rate Oxygen saturation Oxygen saturation in Arterial blood by Pulse oximetry Systolic blood pressure Diastolic blood pressure Provider Name and Address Organization Details Last Updated DateTime 4 175.26 cm 24.2 kg/m2 34658.1 5 g 97.4 [degF] 89 /min 90 % 90 % 120 mm[Hg] 66 mm[Hg] Krystina lynn LONGTenisha [facility] 4 14:02:38 Date Recorded Body weight Body mass index (BMI) Body height Body temperature Heart rate Oxygen saturation Oxygen saturation in Arterial blood by Pulse oximetry Systolic blood pressure Diastolic blood pressure Provider Name and Address Organization Details Last Updated DateTime 4 92334 g 23.2 kg/m2 175.26 cm 97.7 [degF] 95 /min 97 % 97 % 116 mm[Hg] 68 mm[Hg] Krystina Reginald leah Tenisha [facility] 4 10:46:53 Date Recorded Body height Body mass index (BMI) Body weight Body temperature Heart rate Oxygen saturation Oxygen saturation in Arterial blood by Pulse oximetry Inhaled oxygen flow rate Systolic blood pressure Diastolic blood pressure Provider Name and Address Organization Details Last Updated DateTime 5 175.26 cm 22.2 kg/m2 09555.8 6 g 97.6 [degF] 97 /min 96 % 96 % 2 L/min 119 mm[Hg] 78 mm[Hg] Qiana mi [facility] 5 12:32:51 Social History Question Answer Notes LastModified by Organization Details LastModified Time Tobacco Smoking Status Former Smoker Quit- 2005 Radha Nowak RN [facility], [facility] 04/19/2023 10:06:59 Do You Have An Advance Directive? Yes [id number] Information not available 07/18/2022 What Is Your Level Of Alcohol Consumption? Moderate 2-3x/wk [email or web address] Information not available 09/02/2023 Do You Wear A Helmet When Biking? No [email or web address] Information not available 04/19/2023 Are You Blind Or Do You Have Difficulty Seeing? No [email or web address] Information not available 04/19/2023 What Is Your Level Of Caffeine Consumption? Occasional 1 Cup Coffe In The Morning MIGRATION.0301 193540 Information not available 07/18/2022 How Much Tobacco Do You Chew? None MIGRATION.0301 [id number] Information not available 07/18/2022 Are You Deaf Or Do You Have Serious Difficulty Hearing? No Information not available 04/19/2023 What Type Of Diet Are You Following? REGULAR MIGRATION.0301 [id number] Information not available 07/18/2022 Which Illicit Or Recreational Drugs Have You Used? None Information not available 04/19/2023 Do You Or Have You Ever Used E-cigarettes Or Vape? Never Used Electronic Cigarettes Information not available 04/19/2023 What Is The Highest Grade Or Level Of School You Have Completed Or The Highest Degree You Have Received? [id number] [email or web address] Information not available 04/19/2023 What Is Your Occupation? Retired [email or web address] Information not available 04/19/2023 Have There Been Any Changes To Your Family Or Social Situation? No [email or web address] Information not available 04/19/2023 What Is The Fluoride Status Of Your Home? Fluoridated Information not available 04/19/2023 When Did You Quit Smoking? 16+yearssincelastc igarette [email or web address] Information not available 04/19/2023 Are There Any Guns Present In Your Home? No [email or web address] Information not available 04/19/2023 Do You Use Insect Repellent Routinely? No [email or web address] Information not available 04/19/2023 Where Do You Live? SingleLevelHouse [email or web address] Information not available 04/19/2023 Advance Directive- Providers Has Reviewed Directive And Consents To Follow Them (insert Provider Name With Any Objectives In Notes Field) Yes [email or web address] Information not available 08/20/2022 Guns Present In The Home? Yes [email or web address] Information not available 09/02/2023 Are You Able To Care For Yourself? Yes [email or web address] Information not available 08/20/2022 Are You Blind Or Do Yo Have Difficulty Seeing? No Information not available 08/20/2022 Are You Deaf Or Do You Have Serious Difficulty Hearing? No [email or web address] Information not available 08/20/2022 General Stress Level? Low [email or web address] Information not available 08/20/2022 Live Alone Of With Others? With Others Information not available 08/20/2022 Do You Have A Medical Power Of Acid Tank Liner? Yes [email or web address] Information not available 04/19/2023 What Was The Date Of Your Most Recent Tobacco Screening? 09/02/2023 [email or web address] Information not available 09/02/2023 Do You Have Any Pets? No [email or web address] Information not available 04/19/2023 What Is Your Relationship Status? MIGRATION.0301 [id number] Information not available 07/18/2022 Do You Use Your Seat Belt Or Car Seat Routinely? Yes [email or web address] Information not available 04/19/2023 Do You Have Smoke And Carbon Monoxide Detectors In Your Home? Yes [email or web address] Information not available 04/19/2023 At What Age Did You Start Smoking Tobacco? 12 [email or web address] Information not available 04/19/2023 Are You Passively Exposed To Smoke? No [email or web address] Information not available 04/19/2023 Do You Or Have You Ever Used Smokeless Tobacco? Never Used Smokeless Tobacco MIGRATION.0301 [id number] Information not available 07/18/2022 How Much Tobacco Do You Smoke? 3+ PPD MIGRATION.0301 [id number] Information not available 07/18/2022 Do You Feel Stressed (tense, Restless, Nervous, Or Anxious, Or Unable To Sleep At Night)? [id number] [email or web address] Information not available 04/19/2023 Do You Use Any Illicit Or Recreational Drugs? No [email or web address] Information not available 04/19/2023 Do You Use Sunscreen Routinely? No Information not available 04/19/2023 Has Tobacco Cessation Counseling Been Provided? No Information not available 04/19/2023 How Many Years Have You Smoked Tobacco? 43 [email or web address] Information not available 04/19/2023 Have You Recently Traveled Abroad? Yes Last Mo Went To [place] [email or web address] Information not available 04/19/2023 Do You Have Any Dietary Restrictions? No [email or web address] Information not available 04/19/2023 Do You Or Have You Ever Used Any Other Forms Of Tobacco Or Nicotine? No [email or web address] Information not available 04/19/2023 Sex: Male Functional Status Question Answer Note LastModified by Organizat ion Details LastModified Time Do you have difficulty walking or climbing stairs? No [email or web address] Information not available 04/19/2023 Do you have transportation difficulties? No [email or web address] Information not available 04/19/2023 Are you able to walk? YESWOREST [email or web address] Information not available 04/19/2023 Do you have difficulty doing errands alone? No Information not available 04/19/2023 Are you able to care for yourself? Yes [email or web address] Information n ot available 04/19/2023 Do you have difficulty dressing or bathing? No [email or web address] Information not available 04/19/2023 What is your exercise level? Occasional [id number] Information not available 07/18/2022 Mental Status Question Answer Note LastModified by Organization D etails LastModified Time Do you have difficulty concentrating, remembering or making decisions? No [email or web address] Information no t available 04/19/2023 Family History Relationship Description Onset Age of this Age Resolved Age Notes LastModified by Organization Details LastModified Time Mother Malignant tumor of lung [id number] Not available 07/18/2022 02:42:57 Notes:Blood clot- father Medical History Condition Response GOUT Y GERD/NAUSEA Y COPD Y HYPERTENSION Y HIGH CHOLESTEROL / HYPERLIPIDEMIA Y Immunizations Vaccine Type Date Status Note Provider Nam e and Address Organization Details Recorded Time COVID-19, mRNA, LNP-S, PF, 30 mcg/0.3 mL dose 1 completed Not Available [facility] 07/18/2022 02:54:36 Influenza, high-dose, quadrivalent, PF 1 completed Not Available [facility] 07/18/2022 02:54:36 SARS-COV-2 (COVID-19) vaccine, UNSPECIFIED 1 completed Not Available [facility] 07/18/2022 02:54:37 SARS-COV-2 (COVID-19) vaccine, UNSPECIFIED 1 completed Not Available Counts include 234 beds at the [facility] 07/18/2022 02:54:37 Influenza, high-dose, trivalent, PF 9 completed Not Available [facility] 07/18/2022 02:54:37 Influenza, split virus, trivalent, preservative 7 completed Not Available [facility] 07/18/2022 02:54:37 pneumococcal polysaccharide PPV23 7 completed Not Available Counts include 234 beds at the [facility] 07/18/2022 02:54:37 Influenza, high-dose, trivalent, PF 0 completed Not Available Counts include 234 beds at the [facility] 07/18/2022 02:54:37 influenza nasal, unspecified formulation 5 completed Not Available Counts include 234 beds at the [facility] 07/18/2022 02:54:37 pneumococcal polysaccharide PPV23 4 completed Not Available Counts include 234 beds at the [facility] 07/18/2022 02:54:37 Influenza, split virus, trivalent, PF 4 completed Not Available Counts include 234 beds at the [facility] 07/18/2022 02:54:37 Past Encounters Encounter ID Performer Location Encounter Start Date Encounter Closed Date Diagnosis/Indication Diagnosis SNOMED-CT Code Diagnosis ICD10 Code Diagnosis Note [id number] [facility] [address] [address] 08/30/2020 00:00:00 08/30/2020 12:16:34 [id number] _SHIVAM_M IGRATION_ DEFAULT_1 _1 , 10/12/2020 00:00:00 10/12/2020 11:39:09 [id number] [facility] [address] [address] 12/27/2020 00:00:00 12/27/2020 10:48:46 [id number] [facility] [address] [address] 04/26/2021 00:00:00 04/26/2021 13:17:38 [id number] [facility] [address] [place] [address] 08/28/2021 00:00:00 08/28/2021 10:02:42 [id number] [facility] [address] [place] [address] 12/18/2021 00:00:00 12/18/2021 10:10:52 [id number] [facility] [address] [facility] [place] [address] 04/19/2022 00:00:00 04/19/2022 10:09:01 [id number] [facility] [address] [facility] [place] [address] 06/07/2022 00:00:00 06/07/2022 12:04:24 [id number] Elmer Key MD [facility] [address] [facility] [place] [address] 08/20/2022 09:52:55 08/20/2022 10:29:50 Essential hypertension 78738585 I10 Under control Chronic ob structive pulmonary disease 15631204 J44.9 Under control with inhalers Gout 73174736 M10.9 no recurrence Hyperlipidemia 33125212 E78.5 Stable watch diet Gastroesop hageal reflux disease 506628507 K21.9 Better Erectile dysfunction 860 591998 F52.21 Meds help Malignant tumor of prostate 358484194 C61 PSA- stable Adult heal th examination 558911438 Z00.00 Colonoscop y- 11/2020, polyp, next in 5 yrsPSA- 2Pre vnar 2016 @ [facility]- 04/2014, 02/2017[facility] T- 10/05/2020 FLU- 2COV ID- #1- 06/23/20, #2- 07/26/20, all boosters Pleural effusion 4442255 8 J90 recurrence , seeing pulm History of polyp of colon 966266097 Z86.010 Liver func tion tests outside reference range 181775549 R94.5 Solitary n odule of lung 516931256 R91.1 Family his tory of aneurysm of thoracic aorta 706581101 Z82.49 Thrombosis of thoracic aorta 91553113 I74.11 on xarelto, needs duration, he will discuss with cardiology Screening for disorder 750728414 Z13.9 [id number] Elmer Key MD [facility] [address] [place] [address] 12/20/2022 10:00:02 12/20/2022 10:42:27 Essential hypertension 39167876 I10 Under control Chronic ob structive pulmonary disease 51579792 J44.9 Under control with inhalers, o2 as needed Gout 95843102 M10.9 no recurrence Hyperlipidemia 28983929 E78.5 Stable watch diet Gastroesop hageal reflux disease 372977243 K21.9 Better Malignant tumor of prostate 440934100 C61 PSA- stable Adult heal th examination 438928176 Z00.00 Colonoscop y- 11/2020, polyp, next in 5 yrsPSA- re vnar 2016 @ [facility]- 04/2014, 02/2017[facility] T- 10/05/2020 FLU- 2COV ID- #1- 06/23/20, #2- 07/26/20, all boosters Pleural effusion 6190307 8 J90 improved History of polyp of colon 901290658 Z86.010 Family his tory of aneurysm of thoracic aorta 064504799 Z82.49 seeing cardiology Thrombosis of thoracic aorta 40673335 I74.11 on xarelto, he needs it for life long due to previous h/o of DVT [id number] Elmer Key MD [facility] Internal Med [address] [facility] [place] [address] 04/19/2023 10:04:21 04/22/2023 09:55:17 Essential hypertension 46651309 I10 watch Chronic ob structive pulmonary disease 33714993 J44.9 Under control with inhalers, o2 as needed Gout 13195155 M10.9 no recurrence Hyperlipidemia 10222590 E78.5 Stable watch diet Gastroesop hageal reflux disease 706619876 K21.9 Better Malignant tumor of prostate 238891191 C61 PSA- stable Pleural effusion 0226598 8 J90 improved History of polyp of colon 374127395 Z86.010 Family his tory of aneurysm of thoracic aorta 791396374 Z82.49 seeing cardiology Thrombosis of thoracic aorta 62260820 I74.11 on xarelto, he needs it for life long due to previous h/o of DVT [facility] examination 730189124 Z00.00 Colonoscop y- 11/2020, polyp, next in 5 yrsPSA- 2022 at urology , [facility] T- 10/05/2020 FLU- OV ID- #1- 06/23/20, #2- 07/26/20, all boosters Upper resp iratory infection 52598732 J06.9 mucinex prn , call next week if not better [id number] Elmer Key MD [facility] [address] [place] [address] 09/02/2023 11:39:10 09/02/2023 12:15:37 Essential hypertension 54413542 I10 ^ the amlodipine Chronic ob structive pulmonary disease 18406051 J44.9 Under control with inhalers, o2 as needed Gout 59208299 M10.9 no recurrence Hyperlipidemia 81633764 E78.5 Stable watch diet Gastroesop hageal reflux disease 406044159 K21.9 Better Malignant tumor of prostate 327717214 C61 PSA- stable Pleural effusion 0195643 8 J90 improved Family his tory of aneurysm of thoracic aorta 478651440 Z82.49 seeing cardiology Thrombosis of thoracic aorta 79044119 I74.11 on xarelto, he needs it for life long due to previous h/o of DVT [facility] examination 765874251 Z00.00 Colonoscop y- 11/2020, polyp, next in 5 yrsPSA- 2022 at urology , [facility] T- 10/05/2020 , CT-Chest- 12/18/2022, PET- 09/18/2022 FLU- 02/2022, 02/22/2023R SV- 02/22/2023 OVID- #1- 06/23/20, #2- 07/26/20, 02/28/2023 all boosters Acid reflux 507745365 K2 1.9 Screening for disorder 123281506 Z13.9 [id number] Elmer Key MD [facility] [address] [place] [address] 12/31/2023 10:43:14 12/31/2023 11:14:03 Essential hypertension 72496406 I10 better since dose was increased Chronic ob structive pulmonary disease 82963695 J44.9 Under control with inhalers, o2 as needed Gout 81404642 M10.9 no recurrence Hyperlipidemia 12125066 E78.5 Stable watch diet Gastroesop hageal reflux disease 142738027 K21.9 Better Malignant tumor of prostate 737774865 C61 PSA- stable, being li at urology Pleural effusion 6130051 8 J90 improved Thrombosis of thoracic aorta 95565907 I74.11 on xarelto, he needs it for life long due to previous h/o of DVT Acid reflux 380100731 K2 1.9 meds help Adult heal th examination 588949642 Z00.00 Colonoscop y- 11/2020, polyp, next in 5 yrsPSA- at urologyPre sil 2016 @ [facility]- 04/2014, 02/2017[facility] T- 10/05/2020 , CT-Chest- 12/18/2022, PET- 09/18/2022 FLU- 02/2022, 02/22/2023R SV- 02/22/2023 OVID- #1- 06/23/20, #2- 07/26/20, 02/28/2023 all boosters Ex-smoker 6979578 Z87.89 1 has quit long time ago Malignant tumor of lung 731200767 C34.90 s/p RT, getting CT chest for f/u next month [id number] Elmer Key MD [facility] [address] [place] [address] 02/20/2024 13:58:54 02/20/2024 14:37:06 Edema of lower extremity 356374328 R60.0 could be due to amlodipine , will cut done the dose to 5 mgwill try Furosemide less likely DVT, although at high risk due yo cancer but already on xarelto Essential hypertension 19736080 I10 decrease the dose [id number] Elmer Key MD [facility] [address] [place] [address] 03/24/2024 10:39:30 03/24/2024 11:02:13 Essential hypertension 21035872 I10 under control Edema 439929618 R60.9 improvedst op furosemide call if starts swelling again [id number] Elmer Key MD [facility] [address] [place] [address] 06/17/2024 12:20:12 06/17/2024 12:48:52 Candidiasis of mouth 94606605 B37.0 Health Concerns Section Related Observation LastModified by Organization Detai ls LastModified Time None Recorded Concern Status LastModified by Organization Details LastModified Time None Recorded Advance Directives Directive Y: Payers Encounter Date Sequence Insurance Name Policy Number Policy Leonard Covered Member ID Leonard Member ID Guarantor Name 09/02/2023 1 [place] Donta Doherty [id number] Donta Adriane Doherty 09/02/2023 2 [employer] (MEDICARE SUPPLEMENT) PLAN G Donta Adriane WhiteBessy [id number] Donta Adriane WhiteBessy 12/31/2023 1 [place] Donta Rivasand [id number] 3 Donta Adriane WhiteBessy 12/31/2023 2 [employer] (MEDICARE SUPPLEMENT) PLAN G Donta Ogdenlelland [id number] Donta Ogdenlelland 02/20/2024 1 [place] Donta Whitelland [id number] 3 Donta Whitelland 02/20/2024 2 [employer] (MEDICARE SUPPLEMENT) PLAN G Donta Ogdenlelland [id number] Donta Ogdenlelland 03/24/2024 1 [place] Donta Rivasand [id number] 3 Donta Doherty 03/24/2024 2 [employer] (MEDICARE SUPPLEMENT) PLAN G Donta Doherty [id number] Donta Doherty 06/17/2024 1 [place] Donta Doherty [id number] 3 Donta Doherty 06/17/2024 2 [employer] (MEDICARE SUPPLEMENT) PLAN Alex Doherty [id number] Donta Doherty Notes Date Note Type Note Provider Name and Address Organization Details Recorded Time 09/02/2023 text/html Doing fine, compliant to medications, no side affects, here for follow up. He has no complaints. 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 Quit 2005Lung nodule- CT scan showed increase in size but PET in 10/09 did not show any ^ uptake, seeing pulmonaryAAA. with thrombus- had CT angio, Sees Dr. Sheth, gets ultra sound every year, CTA in 06/11Meds- Xarelto 20 mg dailyGout- no flare up recently- Last flare up was 05/10GERD- better with medsMeds- Pantoprazole 40 mg daily prnHyperlipidemia- labs 01/08, Trig were highMeds- Simvastatin 20 mg daily Prostate cancer- had prostate MRI and biopsy, s/o RT 2021, Dr Lowry, gets psa at urologyPleural effusion s/p thoracentesis x 2, seeing pulmAlcohol abuse-- does not drink beer any more, drinks wine , LFT nl Elmer Key MD [address] [facility] [facility] [address], [place], [address], [place] [facility] 09/02/2023 13:55:14 12/31/2023 text/html Doing fine, compliant to medications, no side affects, here for follow up. He has no complaints. PT IS NOT FASTINGHTN- BP is under controlMeds- Amlodipine 10 mg daily, Atenolol 100 mg daily COPD, better with inhalers, sees Duran Waters, INSTRUCTOR [employer] EDUCATION, using o2 as neededMeds- Breztri 160 mcg/9 mcg 2 puffs BID , Ventolin inhaler PRNHe is ex- smoker. Quit 2005Lung cancer- non small cell, Finished Radiation, seeing Dr Mohr. with thrombus- had CT angio, Sees Dr. Sheth, gets ultra sound every year, CTA in 06/11Meds- Xarelto 20 mg dailyGout- no flare up recently- Last flare up was 05/10GERD- better with medsMeds- Pantoprazole 40 mg daily prnHyperlipidemia- labs 01/08, Trig were highMeds- Simvastatin 20 mg daily Prostate cancer- had prostate MRI and biopsy, s/p RT 2021, Dr Lowry, gets PSA at urologyPleural effusion s/p thoracentesis x 2, seeing pulmAlcohol abuse-- does not drink beer any more, drinks wine , LFT nl Elmer Key MD [address], [place], [address], [employer] 12/31/2023 11:13:44 02/20/2024 text/html Pt is here today for bilateral ankle swelling left ankle is worse.Ankles are red and swollen. No drainage. C/o tenderness and has been going on for 3 weeks.Appetite is poor. He is here today with his TatiannaAfter walking in his O2 level was 78. Did come up to 90 after taking deep breathes in through his nose. He does have Oxygen out in the car.Would like a flu shot He is on amlodipine 10 mg qd, he has lost weight. He finished RT and supposed to get Ct chest He has no new sob H/o DVT in the past Elmer Key MD [address], [address], [place], [address], [employer] 02/20/2024 15:54:57 03/24/2024 text/html Pt is here today for a 1 month follow upHe is currently on Furosemide for bilateral lower leg edema which has cleared.amlodipine was decreased to 5 mgHe has lost 7 lbs Elmer Key MD [address], [place], [address], [facility] 03/24/2024 11:01:45 06/17/2024 text/html Pt is here today for a sick visit. He is having trouble with his tongue with burning sensations and sore throat and only able to have liquids . Pt is also drooling and is concerned about it. he is taking an antibiotic but hasn t helped it.He was treated for thrush with nystatin but not better.no pain on swallowingno fever Elmer Key MD [address], [facility] [address], [place], [address], [facility] 06/17/2024 12:43:49
--- OUTSIDE RECORDS SUMMARY | 2024-07-06 18:04 | XMS_ITS | Clinical Summary ---
Author Organization [facility] Address [address] [place] [address] Phone Care Team Providers Care Manager Mission Name Role Phone Martin Tejeda MD Primary Care Provider [phone] Allergies No known active allergies Medications atenoloL (TENORMIN) 100 mg tablet Take 100 mg by mouth daily. Active amLODIPine (NORVASC) 10 mg tablet Take 10 mg by mouth daily. Active simvastatin (ZOCOR) 20 mg tablet Take 20 mg by mouth daily with supper. Active rivaroxaban (Xarelto) 20 mg Tablet Take 20 mg by mouth daily with supper. Active multivitamin (DAILY-RUIZ) tablet Take 1 Tablet by mouth daily. Active albuterol sulfate HFA 90 mcg/actuation aerosol inhaler Take 2 Puffs by inhalation every 6 hours as needed for Shortness of Breath. Active pantoprazole (PROTONIX) 40 mg Tablet, Delayed Release (E.C.) Take 1 Tablet by mouth 1 time daily as needed. Active Breztri Aerosphere 160 mcg-9mcg-4.8mcg /actuation HFA aerosol inhaler 2 puff 2 TIMES DAILY (route: inhalation) 3 Active dexAMETHasone (DECADRON) 4 mg tablet Take 1 Tablet (4 mg) by mouth one time for 1 dose. Take in the AM, on days of lung radiation, with food. 5 Tablet 4 Active predniSONE (DELTASONE) 20 mg tablet Take 2 Tablets (40 mg) by mouth daily. 10 Tablet 4 Active gabapentin (NEURONTIN) 300 mg capsule Take 1 Capsule (300 mg) by mouth 2 times daily. 60 Capsule 3 4 Active oxyCODONE (ROXICODONE) 10 mg tabletIndicatio ns:Cancer related pain Take 1 Tablet (10 mg) by mouth every 6 hours as needed for Pain, Moderate. Max Daily Amount: 40 mg 60 Tablet 4 Active Active Problems Problem Noted Date Diagnosed Date Lung nodules 10/30/2023 Mediastinal lymphadenopathy 10/30/2023 Encounters Date Type Department Care Team Description 06/10/2024 External Device Data ST[facility] ABSTRACTION Provider, Abstract 06/09/2024 External Device Data [facility] ABSTRACTION Provider, Abstract 06/02/2024 External Device Data [facility] ABSTRACTION Provider, Abstract 04/28/2024 10:00 AM MEDICAL UNDERWRITER Office Visit [facility] [address] [place] [address] Cash Chamberlain MD Malignant neoplasm of left lung, unspecified part of lung (CMS/HCC) (Primary Dx) 04/27/[address] [facility] [address] [place] [address] Cash Chamberlain MD from Last 3 Months Family History Medical History Relation Name Comments Lung Cancer Mother Lisa Bartlett Colon Cancer Paternal Grandmother Mrs Collins Relation Name Status Comments Mother Lisa Bartlett Paternal Grandmother Mrs Collins Social History Tobacco Use Types Packs/Day Years Used Date Smoking Tobacco: Former Cigarettes 3 25 Q uit: 08/02/2005 Tobacco Cessation:Counseling Given: Not Answered Alcohol Use Standard Drinks/Week Comments Yes 14 (1 standard drink = 0.6 oz pu re alcohol) Sex and Gender Information Value Date Recorded Sex Assigned at Not on file Legal Sex Male 9:37 AM CDT Gender Identity Male 07/03/2024 1:54 PM MEDICAL UNDERWRITER Sexual Orientation Not on file Last Filed Vital Signs Vital Sign Reading Time Taken Comments Blood Pressure 97/65 04/28/2024 10:04 AM MEDICAL UNDERWRITER Pulse 87 04/28/2024 10:04 AM MEDICAL UNDERWRITER Temperature 36.5 C (97.7 F) 04/28/2024 10:04 AM MEDICAL UNDERWRITER Respiratory Rate 14 04/28/2024 10:0 4 AM MEDICAL UNDERWRITER Oxygen Saturation 92% 04/28/2024 10: 04 AM MEDICAL UNDERWRITER Inhaled Oxygen Concentration - - Weight 70.7 kg (155 lb 12.8 oz) 024 10:04 AM MEDICAL UNDERWRITER Height 177.8 cm (5' 10 ) 11/11/2023 1:22 PM CDT Body Mass Index 22.35 11/11/2023 1:22 PM CDT Plan of Treatment Upcoming Encounters Date Type Department Care Team (Late st Contact Info) Description 08/14/2024 10:15 AM CDT Office Visit [facility] and Hematology - [facility] [address] [facility] [place] [facility] [address] [place] [address] Cash Chamberlain MD [address] [facility] [address] [place] [address] Health Maintenance Due Date Last Done Comments DTAP/TDAP/TD VACCINES (1 - Tdap) 12/08/1967 COLORECTAL SCREENING 1993 Colorectal Cancer Screening 1993 FIT-DNA Q 3 years 1993 FIT/FOBT Q 1 year 1993 Flex Sig/CT Colonography Q 5 years 1993 ZOSTER VACCINE (1 of 2) 1998 Abdominal Aortic Aneurysm (A AA) Screening 2013 PNEUMOCOCCAL VACCINE 65+ YEA RS (2 of 2 - PCV) 02/23/2018 02/23/2017, 04/29/2014 RSV VACCINE (60+ or ) (1 - 1-dose 75+ series) 12/08/2023 INFLUENZA VACCINE (#1) 2023 , 02/29/2020, 03/09/2019, Additional history exists Procedures Procedure Name Priority Date/Time Associated Diagnosis Comments COMPREHENSIVE METABOLIC PANEL Routine 04/24/2024 4:02 PM MEDICAL UNDERWRITER COMPREHENSIVE METABOLIC PANEL Routine 04/24/2024 3:57 PM MEDICAL UNDERWRITER CBC MIXED CELL DIFFERENTIAL Routine 04/24/2024 2:41 PM MEDICAL UNDERWRITER from Last 3 Months Results * COMPREHENSIVE METABOLIC PANEL (04/24/2024 4:02 PM MEDICAL UNDERWRITER) Only the most recent of2 resultswithin the time period is included. Blood us Cash Chamberlain MD CHEMISTRY ORDERABLES Final Resu lt * CBC MIXED CELL DIFFERENTIAL (04/24/2024 2:41 PM MEDICAL UNDERWRITER) Blood Cash Chamberlain MD HEMATOLOGY ORDERABLES Final Res ult from Last 3 Months Insurance MEDICARE PART A AND B [facility] MEDICARE PART A AND B [facility] [place] [address] Care Teams Manager Mission Relationship Specialty Start Date End Date Martin Tejeda MD [address] [place] [phone] PCP - General Internal Medicine 11/11/23
--- OUTSIDE RECORDS SUMMARY | 2024-07-06 18:04 | XMS_ITS | Clinical Summary ---
Author Organization [facility] Address [address] [place] [id number] Care Team Providers Care Electronic Systems Security Assessment Name Role Phone None, Provider MD Primary Care Provider Unavaila ble Allergies No known active allergies Medications fluconazole (DIFLUCAN) 150 MG tablet Take 1 tablet (150 mg total) by mouth daily for 5 doses. 5 tablet 06/29/2024 Encounters Date Type Department Care Team Description 06/29/2024 1:40 PM TECHNICAL SUPPORT ASSISTANT - 06/29/2024 6:49 PM TECHNICAL SUPPORT ASSISTANT Emergency [facility] [place] [address] Juan R Chino MD Throat Problem Discharge Disposition: Home or Self Care (Routine Discharge) 06/29/2024 Travel from Last 3 Months Social History Tobacco Use Types Packs/Day Years Used Date Smoking Tobacco: Never Assessed Sex and Gender Information Value Date Recorded Sex Assigned at Male 06/29/2024 12:54 PM TECHNICAL SUPPORT ASSISTANT Legal Sex Male 12:47 PM TECHNICAL SUPPORT ASSISTANT Gender Identity Not on file Sexual Orientation Not on file Last Filed Vital Signs Vital Sign Reading Time Taken Comments Blood Pressure 110/77 06/29/2024 3:57 PM TECHNICAL SUPPORT ASSISTANT Pulse 94 06/29/2024 6:48 PM TECHNICAL SUPPORT ASSISTANT Temperature 36.1 C (97 F) 06/29/2024 1:20 PM TECHNICAL SUPPORT ASSISTANT Respiratory Rate 18 06/29/2024 1:20 PM TECHNICAL SUPPORT ASSISTANT Oxygen Saturation 95% 06/29/2024 6:48 PM TECHNICAL SUPPORT ASSISTANT Inhaled Oxygen Concentration - - Weight 68 kg (150 lb) 06/29/2024 1:20 PM TECHNICAL SUPPORT ASSISTANT Height 177.8 cm (5' 10 ) 06/29/2024 1:20 PM TECHNICAL SUPPORT ASSISTANT Body Mass Index 21.52 06/29/2024 1:20 PM TECHNICAL SUPPORT ASSISTANT Plan of Treatment Health Maintenance Due Date Last Done Comments Colorectal Cancer Screening Colonoscopy (10 Years) 1948 Hepatitis C 1966 DTaP, Tdap and Td Vaccines ( 1 - Tdap) 12/08/1967 Zoster Vaccines (1 of 2) 1998 Annual Medicare Wellness Visit 2013 Pneumococcal Vaccine: 65+ Ye ars (1 of 1 - PCV) 2013 RSV Immunization or 60+ Years (1 - 1-dose 75+ series) 12/08/2023 COVID-19 Vaccine ( - 2023-2 5 season) 2024 Influenza Adult (#1) 2024 Meningococcal B Vaccine Aged Out No l onger eligible based on patient's age to complete this topic Meningococcal Vaccine Aged Out No ash donna eligible based on patient's age to complete this topic RSV Immunizations Under 20 Months Aged Out No longer eligible based on patient's age to complete this topic Procedures Procedure Name Priority Date/Time Associated Diagnosis Comments LACTIC ACID W REFLEX (SEPSIS) TIMED 06/29/2024 4:05 PM TECHNICAL SUPPORT ASSISTANT LACTIC ACID W REFLEX (SEPSIS) STAT 06/29/2024 1:54 PM TECHNICAL SUPPORT ASSISTANT COMPREHENSIVE METABOLIC PANEL STAT 06/29/2024 1:54 PM TECHNICAL SUPPORT ASSISTANT CBC W/DIFF AUTOMATED STAT 06/29/2024 1:54 PM TECHNICAL SUPPORT ASSISTANT from Last 3 Months Results * LACTIC ACID W REFLEX (SEPSIS) (06/29/2024 4:05 PM TECHNICAL SUPPORT ASSISTANT) Only the most recent of2 resultswithin the time period is included. LACTIC ACID VENOUS 2.0 0.4 - 2.0 MMOL/L 06/29/2024 5:13 PM TECHNICAL SUPPORT ASSISTANT [facility] 06/29/2024 4:05 PM TECHNICAL SUPPORT ASSISTANT us [facility] Final Resul t [facility] [address] [place] [address], * (ABNORMAL) COMPREHENSIVE METABOLIC PANEL (06/29/2024 1:54 PM TECHNICAL SUPPORT ASSISTANT) [facility] GLUCOSE 111(H) 70 - 99 MG/DL 06/29/2024 2:38 PM TECHNICAL SUPPORT ASSISTANT [facility] BUN 15 7 - 18 MG/DL 06/29/2024 2:38 PM TECHNICAL SUPPORT ASSISTANT [facility] CREATININE S/P/B 0.71 0.7 - 1.3 MG/DL 06/29/2024 2:38 PM TECHNICAL SUPPORT ASSISTANT [facility] SODIUM S/P/B 136 136 - 145 MMOL/L 06/29/2024 2:38 PM TECHNICAL SUPPORT ASSISTANT [facility] POTASSIUM S/P/B 4.7 3.5 - 5.1 MMOL/L 06/29/2024 2:38 PM TECHNICAL SUPPORT ASSISTANT [facility] Comment:SLIGHT HEMOLYSIS, RE SULT MAY BE AFFECTED. CHLORIDE S/P/B 97 97 - 115 MMOL/L 06/29/2024 2:38 PM TECHNICAL SUPPORT ASSISTANT [facility] CO2 31.3 21 - 32 MMOL/L 06/29/2024 2:38 PM TECHNICAL SUPPORT ASSISTANT [facility] CALCIUM S/P/B 9.2 8.5 - 10.1 MG/DL 06/29/2024 2:38 PM TECHNICAL SUPPORT ASSISTANT [facility] BILIRUBIN TOTAL S/P/B 0.6 0.2 - 1.2 MG/DL 06/29/2024 2:38 PM [facility] Comment: THIS ASSAY IS NOT RECOMMENDED FOR PATIENTS UNDERGOING TREATMENT WITH ELTROMBOPAG DUE TO THE POTENTIAL FOR FALSELY ELEVATED RESULTS. TOTAL PROTEIN S/P/B 7.0 6.4 - 8.2 G/DL 06/29/2024 2:38 PM TECHNICAL SUPPORT ASSISTANT [facility] ALBUMIN S/P/B 2.5(L) 3.4 - 5.0 G/DL 06/29/2024 2:38 PM TECHNICAL SUPPORT ASSISTANT [facility] AST 48(H) 15 - 37 U/L 06/29/2024 2:38 PM TECHNICAL SUPPORT ASSISTANT [facility] Comment:SLIGHT HEMOLYSIS, RE SULT MAY BE AFFECTED. ALT 29 16 - 60 U/L 06/29/2024 2:38 PM TECHNICAL SUPPORT ASSISTANT [facility] ALKALINE PHOSPHATASE S/P/B 85 50 - 136 U/L 06/29/2024 2:38 PM TECHNICAL SUPPORT ASSISTANT [facility] ANION GAP 7.7 2 - 10 MMOL/L 06/29/2024 2:38 PM TECHNICAL SUPPORT ASSISTANT [facility] BUN CREATININE RATIO 21.0 6 - 26 06/29/2024 2:38 PM TECHNICAL SUPPORT ASSISTANT [facility] A/G RATIO 0.6(L) 1.0 - 2.0 RATIO 06/29/2024 2:38 PM TECHNICAL SUPPORT ASSISTANT [facility] GFR ESTIMATE >90 >90 ML/MIN/1.7 3 M2 06/29/2024 2:38 PM TECHNICAL SUPPORT ASSISTANT [facility] Comment: NOTE: eGFR is not calculated for patients <18 years of age or gender unknown. This is an estimated GFR calculation using the new CKD EPI creatinine equation without race and so does not require a correction factor for race. This estimated GFR should not be used for calculating drug doses. 06/29/2024 1:54 PM TECHNICAL SUPPORT ASSISTANT us [facility] Final Resul t [facility] [address] [place] [address], [place] [phone] * (ABNORMAL) CBC W/DIFF AUTOMATED (06/29/2024 1:54 PM TECHNICAL SUPPORT ASSISTANT) [facility] WBC 10.24 4.5 - 11.0 x10'3/uL 06/29/2024 2:15 PM [facility] RBC 4.93 4.70 - 6.10 x10'6/uL 06/29/2024 2:15 PM [facility] HGB 15.5 14.0 - 18.0 G/DL 06/29/2024 2:15 PM [facility] HCT 48.1 43.0 - 54.0 % 06/29/2024 2:15 PM [facility] MCV 97.6(H) 80.0 - 94.0 FL 06/29/2024 2:15 PM [facility] MCH 31.4(H) 27.0 - 31.0 PG 06/29/2024 2:15 PM [facility] MCHC 32.2 32.0 - 36.0 G/DL 06/29/2024 2:15 PM [facility] RDW 13.3 11.5 - 14.5 % 06/29/2024 2:15 PM [facility] PLT 232 130 - 400 x10'3/uL 06/29/2024 2:15 PM [facility] MPV 10.4 9.3 - 12.2 FL 06/29/2024 2:15 PM [facility] DIFFERENTIAL TYPE MANUAL DIFFERENTIAL 06/29/2024 2:40 PM [facility] SEG NEUTROPHILS 59 % 2:40 PM [facility] LYMPHOCYTES 20 % 06/29/2024 2:40 PM [facility] MONOCYTES 16 % 06/29/2024 2:40 PM [facility] EOSINOPHILS 3 % 06/29/2024 2:40 PM TECHNICAL SUPPORT ASSISTANT [facility] METAMYELOCYTES 1 % 06/29/2024 2:40 PM TECHNICAL SUPPORT ASSISTANT [facility] MYELOCYTES 1 % 06/29/2024 2:40 PM TECHNICAL SUPPORT ASSISTANT [facility] ABS. NEUTROPHILS 6.04 1.80 - 7.70 x10'3/uL 06/29/2024 2:40 PM TECHNICAL SUPPORT ASSISTANT [facility] ABS. LYMPHOCYTES 2.05 1.00 - 4.80 x10'3/uL 06/29/2024 2:40 PM TECHNICAL SUPPORT ASSISTANT [facility] ABS. MONOCYTES 1.64(H) 0.30 - 0.82 x10'3/uL 06/29/2024 2:40 PM TECHNICAL SUPPORT ASSISTANT [facility] ABS. EOSINOPHILS 0.31 0.04 - 0.54 x10'3/uL 06/29/2024 2:40 PM TECHNICAL SUPPORT ASSISTANT [facility] ABS. METAMYELOCYTES 0.10(H) 0.00 x10'3/uL 06/29/2024 2:40 PM TECHNICAL SUPPORT ASSISTANT [facility] ABS. MYELOCYTES 0.10(H) 0.00 x10'3/uL 06/29/2024 2:40 PM TECHNICAL SUPPORT ASSISTANT [facility] RBC MORPHOLOGY RBC MORPHOLOGY APPEARS NORMAL. SLIDE REVIEWED. 06/29/2024 2:40 PM TECHNICAL SUPPORT ASSISTANT [facility] PLT EST. ADEQUATE 06/29/2024 2:40 PM TECHNICAL SUPPORT ASSISTANT [facility] 06/29/2024 1:54 PM TECHNICAL SUPPORT ASSISTANT us E[facility] Final Resul t [facility] [address] [place] [address], from Last 3 Months Insurance MEDICARE [facility] Care Teams Electronic Systems Security Assessment Relationship Specialty Start Date End Date None, Provider, MD PCP - General UNKNOWN PHYSICIAN SPECIALTY 06/29/24
[2024-07-06 19:21] LABS: Basophils Absolute Auto 0.1 K/mm3 (0.0-0.1); Basophils Percent Auto 0.7 % (0.2-1.2); Eosinophils Absolute Auto 0.3 K/mm3 (0-0.3); Eosinophils Percent Auto 3.6 % (0-4.4); Hematocrit 49.7 % (42.0-52.0); Hemoglobin 16.3 g/dL (14.0-18.0); Immature Granulocyte Absolute 0.08 K/mm3 (0.00-0.031); Immature Granulocyte Percent A 0.9 % (0-0.5); Lymphocytes Absolute Auto 2.53 K/mm3 (0.9-3.2); Lymphocytes Percent Auto 29.4 % (18.3-44.2); Mean Corpuscular HGB Conc 32.8 g/dl (32-36); Mean Corpuscular Hemoglobin 31.9 pg (26-34); Mean Corpuscular Volume 97.3 fl (80-100); Mean Platelet Volume 10.2 fl (7.4-10.4); Monocytes Absolute Auto 1.1 K/mm3 (0.1-0.6); Monocytes Percent Auto 12.3 % (2.6-8.5); Neutrophils Absolute Auto 4.6 K/mm3 (1.3-6.7); Neutrophils Percent Auto 53.1 % (45.5-73.1); Platelet Count Result 268 k/mm3 (150-375); Red Blood Count 5.11 M/mm3 (4.6-6.20); Red Cell Distribution Width 12.8 % (11.5-14.5); White Blood Count 8.6 K/mm3 (4.5-10.0)
[2024-07-06 19:35] LABS: Alanine Aminotransferase 31 U/L (6-50); Albumin Level 3.7 g/dL (3.5-5.1); Alkaline Phosphatase 101 U/L (38-126); Anion Gap 11 mmol/L (4-12); Aspartate Amino Transferase 32 U/L (17-59); Bilirubin,Total 0.6 mg/dL (0.2-1.3); Blood Urea Nitrogen 15 mg/dL (9-20); Calcium 9.6 mg/dL (8.4-10.2); Carbon Dioxide 32 mmol/L (22-30); Chloride 92 mmol/L (98-107); Creatine Kinase 31 U/L (55-170); Estimated CRCL calculation 99 ml/min; Estimated Glomerular Filt Rate > 60; Glucose 96 mg/dL (65-110); Magnesium 1.6 mg/dL (1.6-2.3); Potassium 4.3 mmol/L (3.4-5.0); Sodium 135 mmol/L (137-145)
[2024-07-06 20:28] VITALS: BP 106/78; PULSE 89; RESP 18; O2SAT 100
--- OUTSIDE RECORDS SUMMARY | 2024-07-06 20:32 | XMS_ITS | Clinical Summary ---
Author Organization [facility] Address [address] [place] [id number] Care Team Providers Care Chancery Clerk Name Role Phone None, Provider MD Primary Care Provider Unavaila ble Allergies No known active allergies Medications fluconazole (DIFLUCAN) 150 MG tablet Take 1 tablet (150 mg total) by mouth daily for 5 doses. 5 tablet 06/29/2024 Encounters Date Type Department Care Team Description 06/29/2024 1:40 PM ASSISTANT TENNIS PROFESSIONAL - 06/29/2024 6:49 PM ASSISTANT TENNIS PROFESSIONAL Emergency [facility] [place] [address] Juan R Chino MD Throat Problem Discharge Disposition: Home or Self Care (Routine Discharge) 06/29/2024 Travel from Last 3 Months Social History Tobacco Use Types Packs/Day Years Used Date Smoking Tobacco: Never Assessed Sex and Gender Information Value Date Recorded Sex Assigned at Male 06/29/2024 12:54 PM ASSISTANT TENNIS PROFESSIONAL Legal Sex Male 12:47 PM ASSISTANT TENNIS PROFESSIONAL Gender Identity Not on file Sexual Orientation Not on file Last Filed Vital Signs Vital Sign Reading Time Taken Comments Blood Pressure 110/77 06/29/2024 3:57 PM ASSISTANT TENNIS PROFESSIONAL Pulse 94 06/29/2024 6:48 PM ASSISTANT TENNIS PROFESSIONAL Temperature 36.1 C (97 F) 06/29/2024 1:20 PM ASSISTANT TENNIS PROFESSIONAL Respiratory Rate 18 06/29/2024 1:20 PM ASSISTANT TENNIS PROFESSIONAL Oxygen Saturation 95% 06/29/2024 6:48 PM ASSISTANT TENNIS PROFESSIONAL Inhaled Oxygen Concentration - - Weight 68 kg (150 lb) 06/29/2024 1:20 PM ASSISTANT TENNIS PROFESSIONAL Height 177.8 cm (5' 10 ) 06/29/2024 1:20 PM ASSISTANT TENNIS PROFESSIONAL Body Mass Index 21.52 06/29/2024 1:20 PM ASSISTANT TENNIS PROFESSIONAL Plan of Treatment Health Maintenance Due Date [...] W REFLEX (SEPSIS) TIMED 06/29/2024 4:05 PM ASSISTANT TENNIS PROFESSIONAL LACTIC ACID W REFLEX (SEPSIS) STAT 06/29/2024 1:54 PM ASSISTANT TENNIS PROFESSIONAL COMPREHENSIVE METABOLIC PANEL STAT 06/29/2024 1:54 PM ASSISTANT TENNIS PROFESSIONAL CBC W/DIFF AUTOMATED STAT 06/29/2024 1:54 PM ASSISTANT TENNIS PROFESSIONAL from Last 3 Months Results * LACTIC ACID W REFLEX (SEPSIS) (06/29/2024 4:05 PM ASSISTANT TENNIS PROFESSIONAL) Only the most recent of2 resultswithin the time period is included. LACTIC ACID VENOUS 2.0 0.4 - 2.0 MMOL/L 06/29/2024 5:13 PM ASSISTANT TENNIS PROFESSIONAL [facility] 06/29/2024 4:05 PM ASSISTANT TENNIS PROFESSIONAL us Emeka [facility] Final Resul t [facility] [address] [place] [address], * (ABNORMAL) COMPREHENSIVE METABOLIC PANEL (06/29/2024 1:54 PM ASSISTANT TENNIS PROFESSIONAL) [facility] GLUCOSE 111(H) 70 - 99 MG/DL 06/29/2024 2:38 PM ASSISTANT TENNIS PROFESSIONAL [facility] BUN 15 7 - 18 MG/DL 06/29/2024 2:38 PM ASSISTANT TENNIS PROFESSIONAL [facility] CREATININE S/P/B 0.71 0.7 - 1.3 MG/DL 06/29/2024 2:38 PM ASSISTANT TENNIS PROFESSIONAL [facility] SODIUM S/P/B 136 136 - 145 MMOL/L 06/29/2024 2:38 PM ASSISTANT TENNIS PROFESSIONAL [facility] POTASSIUM S/P/B 4.7 3.5 - 5.1 MMOL/L 06/29/2024 2:38 PM ASSISTANT TENNIS PROFESSIONAL [facility] Comment:SLIGHT HEMOLYSIS, RE SULT MAY BE AFFECTED. CHLORIDE S/P/B 97 97 - 115 MMOL/L 06/29/2024 2:38 PM ASSISTANT TENNIS PROFESSIONAL [facility] CO2 31.3 21 - 32 MMOL/L 06/29/2024 2:38 PM ASSISTANT TENNIS PROFESSIONAL [facility] CALCIUM S/P/B 9.2 8.5 - 10.1 MG/DL 06/29/2024 2:38 PM ASSISTANT TENNIS PROFESSIONAL [facility] BILIRUBIN TOTAL S/P/B 0.6 0.2 - 1.2 MG/DL 06/29/2024 2:38 PM [facility] Comment: THIS ASSAY IS NOT RECOMMENDED FOR PATIENTS UNDERGOING TREATMENT WITH ELTROMBOPAG DUE TO THE POTENTIAL FOR FALSELY ELEVATED RESULTS. TOTAL PROTEIN S/P/B 7.0 6.4 - 8.2 G/DL 06/29/2024 2:38 PM ASSISTANT TENNIS PROFESSIONAL [facility] ALBUMIN S/P/B 2.5(L) 3.4 - 5.0 G/DL 06/29/2024 2:38 PM ASSISTANT TENNIS PROFESSIONAL [facility] AST 48(H) 15 - 37 U/L 06/29/2024 2:38 PM ASSISTANT TENNIS PROFESSIONAL [facility] Comment:SLIGHT HEMOLYSIS, RE SULT MAY BE AFFECTED. ALT 29 16 - 60 U/L 06/29/2024 2:38 PM ASSISTANT TENNIS PROFESSIONAL [facility] ALKALINE PHOSPHATASE S/P/B 85 50 - 136 U/L 06/29/2024 2:38 PM ASSISTANT TENNIS PROFESSIONAL [facility] ANION GAP 7.7 2 - 10 MMOL/L 06/29/2024 2:38 PM ASSISTANT TENNIS PROFESSIONAL [facility] BUN CREATININE RATIO 21.0 6 - 26 06/29/2024 2:38 PM ASSISTANT TENNIS PROFESSIONAL [facility] A/G RATIO 0.6(L) 1.0 - 2.0 RATIO 06/29/2024 2:38 PM ASSISTANT TENNIS PROFESSIONAL [facility] GFR ESTIMATE >90 >90 ML/MIN/1.7 3 M2 06/29/2024 2:38 PM ASSISTANT TENNIS PROFESSIONAL [facility] Comment: NOTE: eGFR is not calculated for patients <18 years of age or gender unknown. This is an estimated GFR calculation using the new CKD EPI creatinine equation without race and so does not require a correction factor for race. This estimated GFR should not be used for calculating drug doses. 06/29/2024 1:54 PM ASSISTANT TENNIS PROFESSIONAL us [facility] Final Resul t [facility] [address] [place] [address], [place] [phone] * (ABNORMAL) CBC W/DIFF AUTOMATED (06/29/2024 1:54 PM ASSISTANT TENNIS PROFESSIONAL) [facility] WBC 10.24 4.5 - 11.0 x10'3/uL 06/29/2024 2:15 PM [facility] RBC 4.93 4.70 - 6.10 x10'6/uL 06/29/2024 2:15 PM [facility] HGB 15.5 14.0 - 18.0 G/DL 06/29/2024 2:15 PM [facility] HCT 48.1 43.0 - 54.0 % 06/29/2024 2:15 PM [facility] MCV 97.6(H) 80.0 - 94.0 FL 06/29/2024 2:15 PM [facility] MCH 31.4(H) 27.0 - 31.0 PG 06/29/2024 2:15 PM [facility] MCHC 32.2 32.0 - 36.0 G/DL 06/29/2024 2:15 PM [facility] RDW 13.3 11.5 - 14.5 % 06/29/2024 2:15 PM [facility] PLT 232 130 - 400 x10'3/uL 06/29/2024 2:15 PM [facility] MPV 10.4 9.3 - 12.2 FL 06/29/2024 2:15 PM [facility] DIFFERENTIAL TYPE MANUAL DIFFERENTIAL 06/29/2024 2:40 PM [facility] SEG NEUTROPHILS 59 % 2:40 PM [facility] LYMPHOCYTES 20 % 06/29/2024 2:40 PM [facility] MONOCYTES 16 % 06/29/2024 2:40 PM [facility] EOSINOPHILS 3 % 06/29/2024 2:40 PM ASSISTANT TENNIS PROFESSIONAL [facility] METAMYELOCYTES 1 % 06/29/2024 2:40 PM ASSISTANT TENNIS PROFESSIONAL [facility] MYELOCYTES 1 % 06/29/2024 2:40 PM ASSISTANT TENNIS PROFESSIONAL [facility] ABS. NEUTROPHILS 6.04 1.80 - 7.70 x10'3/uL 06/29/2024 2:40 PM ASSISTANT TENNIS PROFESSIONAL [facility] ABS. LYMPHOCYTES 2.05 1.00 - 4.80 x10'3/uL 06/29/2024 2:40 PM ASSISTANT TENNIS PROFESSIONAL [facility] ABS. MONOCYTES 1.64(H) 0.30 - 0.82 x10'3/uL 06/29/2024 2:40 PM ASSISTANT TENNIS PROFESSIONAL [facility] ABS. EOSINOPHILS 0.31 0.04 - 0.54 x10'3/uL 06/29/2024 2:40 PM ASSISTANT TENNIS PROFESSIONAL [facility] ABS. METAMYELOCYTES 0.10(H) 0.00 x10'3/uL 06/29/2024 2:40 PM ASSISTANT TENNIS PROFESSIONAL [facility] ABS. MYELOCYTES 0.10(H) 0.00 x10'3/uL 06/29/2024 2:40 PM ASSISTANT TENNIS PROFESSIONAL [facility] RBC MORPHOLOGY RBC MORPHOLOGY APPEARS NORMAL. SLIDE REVIEWED. 06/29/2024 2:40 PM ASSISTANT TENNIS PROFESSIONAL [facility] PLT EST. ADEQUATE 06/29/2024 2:40 PM ASSISTANT TENNIS PROFESSIONAL [facility] 06/29/2024 1:54 PM ASSISTANT TENNIS PROFESSIONAL us E[facility] Final Resul t [facility] [address] [place] [address], from Last 3 Months Insurance MEDICARE [facility] Care Teams Chancery Clerk Relationship Specialty Start Date End Date None, Provider, MD PCP - General UNKNOWN PHYSICIAN SPECIALTY 06/29/24
--- OUTSIDE RECORDS SUMMARY | 2024-07-06 20:32 | XMS_ITS | Clinical Summary ---
Author Organization [facility] Address [address] [place] [address] Phone Care Team Providers Care Hat Blocker Name Role Phone Martin Tejeda MD Primary Care Provider [phone] Allergies No known active allergies Medications atenoloL [...] STL ABSTRACTION Provider, Abstract 04/28/2024 10:00 AM ASSOCIATE SOFTWARE APPLICATION ENGINEER Office Visit [facility] Oncology and [facility] [address] [place] [address] Cash Chamberlain MD Malignant neoplasm of left lung, unspecified part of lung (CMS/HCC) (Primary Dx) 04/27/2024 Orders Only [facility] Oncology [facility] [address] [place] [address] Cash Chamberlain MD from Last 3 Months [...] CDT Gender Identity Male 07/03/2024 1:54 PM ASSOCIATE SOFTWARE APPLICATION ENGINEER Sexual Orientation Not on file Last Filed Vital Signs Vital Sign Reading Time Taken Comments Blood Pressure 97/65 04/28/2024 10:04 AM ASSOCIATE SOFTWARE APPLICATION ENGINEER Pulse 87 04/28/2024 10:04 AM ASSOCIATE SOFTWARE APPLICATION ENGINEER Temperature 36.5 C (97.7 F) 04/28/2024 10:04 AM ASSOCIATE SOFTWARE APPLICATION ENGINEER Respiratory Rate 14 04/28/2024 10:0 4 AM ASSOCIATE SOFTWARE APPLICATION ENGINEER Oxygen Saturation 92% 04/28/2024 10: 04 AM ASSOCIATE SOFTWARE APPLICATION ENGINEER Inhaled Oxygen Concentration - - Weight 70.7 kg (155 lb 12.8 oz) 024 10:04 AM ASSOCIATE SOFTWARE APPLICATION ENGINEER Height 177.8 cm (5' 10 ) 11/11/2023 1:22 PM CDT Body Mass Index 22.35 11/11/2023 1:22 PM CDT Plan of Treatment Upcoming Encounters Date Type Department Care Team (Late st Contact Info) Description 08/14/2024 10:15 AM CDT Office Visit [facility] Oncology and Hematology - [place] [address] [facility] [address] [place] [address] Cash Chamberlain MD [address] [facility] [address] [place] [address] Health Maintenance Due Date Last [...] COMPREHENSIVE METABOLIC PANEL Routine 04/24/2024 4:02 PM ASSOCIATE SOFTWARE APPLICATION ENGINEER COMPREHENSIVE METABOLIC PANEL Routine 04/24/2024 3:57 PM ASSOCIATE SOFTWARE APPLICATION ENGINEER CBC MIXED CELL DIFFERENTIAL Routine 04/24/2024 2:41 PM ASSOCIATE SOFTWARE APPLICATION ENGINEER from Last 3 Months Results * COMPREHENSIVE METABOLIC PANEL (04/24/2024 4:02 PM ASSOCIATE SOFTWARE APPLICATION ENGINEER) Only the most recent of2 resultswithin the time period is included. Blood us Cash Chamberlain MD CHEMISTRY ORDERABLES Final Resu lt * CBC MIXED CELL DIFFERENTIAL (04/24/2024 2:41 PM ASSOCIATE SOFTWARE APPLICATION ENGINEER) Blood Cash Chamberlain MD HEMATOLOGY ORDERABLES Final Res ult from Last 3 Months Insurance MEDICARE PART A AND B [facility] MEDICARE PART A AND B [facility] [place] [address] Care Teams Hat Blocker Relationship Specialty Start Date End Date Martin Tejeda MD [address] [place] [phone] PCP - General Internal Medicine 11/11/23
[2024-07-06] MEDS: SODIUM CHLORIDE 0.9% IV 1,000 ML 999 ML IV CONT (20:36)
[2024-07-06] MEDS: LIDOCAINE 2% VISC SOLN 15 ML UDC PO (21:33)
[2024-07-06 22:00] VITALS: BP 105/72; PULSE 85; RESP 16; O2SAT 97
--- NOTE | 2024-07-06 22:21 | PC.NURSE ---
Pt. d/c to home with . Pt. taken out to vehicle via WC.
== END 2024-07-06 22:21 | disposition home or self-care (01) ==
PROVIDERS: Physician Assistant; Emergency Provider Emergency Medicine; PCP Internal Medicine
DX: B37.0 Candidal stomatitis (principal); E78.5 Hyperlipidemia, unspecified; I10 Essential (primary) hypertension; J44.9 Chronic obstructive pulmonary disease, unspecified; G47.30 Sleep apnea, unspecified; Z86.718 Personal history of other venous thrombosis and embolism
CPT/HCPCS: 36415; 80053; 82550; 83735; 85025; 96360; 99283; J7030

== ENCOUNTER 2024-08-04 08:47 | Outpatient (CLI) | payer MEDICARE, OTHER, SELFPAY ==
--- NOTE | ~2024-08-04 | CT_ITS ---
Clinical Indication: Lung cancer CT Scan of the Chest with Contrast: Technique: Contiguous sections were acquired throughout the chest after intravenous administration of 75 cc of Omnipaque 350. Dose reduction technique was used on this scan by utilizing automated exposu re control and iterative reconstruction technique. The dose-length product (DLP) was 180.40 mGy-cm. COMPARISON: 04/13/2024 Findings: There is no evidence of any significant mediastinal, hilar or axillary lymphadenopathy. There is no f illing defect in the pulmonary arterial tree to suggest pulmonary embolus. There is no evidence of ao rtic dissection or aneurysm. There is no evidence of pleural or pericardial effusion. Moderate to advanced emphysema present. Stable subcentimeter right pulmonary nodule. 1.6 cm left uppe r lobe perihilar nodule is essentially stable from prior exam. There is curvilinear bandlike opacity adjacent to the nodule which could reflect postradiation change. 8 mm right lower lobe pulmonary nodu le is minimal increased from prior exam (axial image 86). Images through the upper abdomen reveal possible partially imaged infrarenal abdominal aortic aneurys m abdominal aorta at the aortic hiatus of the diaphragm measures 4.4 cm in diameter.. Sebaceous cyst noted at the upper left back. Severe T7 compression fracture is unchanged. Impression: 1.6 cm left upper lobe perihilar nodule is essentially unchanged. Adjacent curvilinear bandlike opaci ty likely represents postradiation change. 8 mm right lower lobe pulmonary nodule is probably minimally increased. Moderate to advanced emphysema. 4.4 cm aortic aneurysm at the aortic hiatus. Suspected partially imaged infrarenal abdominal aortic a neurysm. Consider dedicated imaging as indicated. Stable severe T7 compression fracture. Reviewed, dictated and finalized at [facility]. Impression: 1.6 cm left upper lobe perihilar nodule is essentially unchanged. Adjacent curv ilinear bandlike opacity likely represents postradiation change. 8 mm right lower lobe pulmonary nodule is probably minimally increased. Moderate to advanced emphysema. 4.4 cm aortic aneurysm at the aortic hiatus. Suspected partially imaged infrare nal abdominal aortic aneurysm. Consider dedicated imaging as indicated. Stable severe T7 compression fracture.
[2024-08-04 09:05] LABS: Estimated Glomerular Filt Rate > 60
--- OUTSIDE RECORDS SUMMARY | 2024-08-04 09:10 | XMS_ITS | Referral Summary ---
Author Organization [facility] [address] Address [address] [place] [address] Care Team Providers Care Business Services Manager Name Role Phone Martin Tejeda MD Primary Care Provider [phone] Encounters Date Type Department Care Team Description 08/04/2024 Telephone [facility] Dermatology [address] [place] [address] [address] [place] [address] Kane Leal RMA Med Refill (/) 07/31/2024 3:17 PM CDT - 07/31/2024 11:59 PM CDT Hospital Encounter [address] [address] High risk medication use Discharge Disposition: Discharge to home or self care 07/31/2024 Telephone [facility] Dermatology [address] [place] [address] [place] [address] Farhad Arriola MD Med Management 07/31/2024 10:00 AM CDT Lab [facility] Outpatient Lab at [address] [address] Pemphigus vulgaris (HCC) (Primary Dx) 07/30/2024 Orders Only [facility] Dermatology [address] [place] [address] [address] [place] [address] Kane Leal RMA High risk medication use (Primary Dx) 07/30/2024 Orders Only [facility] Dermatology [address] [place] [address] 7th [place] [address] [place] [address] Farhad Arriola MD 07/30/2024 Orders Only [address] [place] [address] Joelle Rosenbaum RN 07/28/2024 Orders Only [facility] Dermatology [address] [place] [address] [address] [place] [address] Kane Leal RMA 07/28/2024 Orders Only [facility] Dermatology [address] [place] [address] [address] [place] [address] Kane Leal, RMA Rash and other nonspecific skin eruption (Primary Dx) 07/28/2024 Orders Only [address] [place] [address] Kane Leal RMA 07/28/2024 Results Follow-Up [facility] Dermatology [address] [place] [address] Outpatient Health [address] [place] [phone] Farhad Arriola MD 07/28/2024 Results Follow-Up [facility] Dermatology [address] [place] [address] [place] [phone] Farhad Arriola MD 07/28/2024 Orders Only [address] [place] [phone] Farhad Arriola MD 07/27/2024 Telephone [facility] Dermatology [address] [place] [address] [address] [place] [address] Farhad Arriola MD Medication Problem 07/16/2024 Orders Only [facility] [address] [place] [address] Farhad Arriola MD Rash 07/15/2024 Orders Only [facility] [address] [place] [address] Farhad Arriola MD 07/15/2024 11:50 AM CLOTH EXAMINER Lab [facility] Health [address] [place] [address] [place] [address] Rash 07/15/2024 1:20 PM CLOTH EXAMINER Office Visit [facility] Department of Otolaryngology Head-Neck Division [address] [facility] Floor 5 [place] [phone] Anai Anthony PA Oral mucosal lesion (Primary Dx); Oral thrush; Bilateral impacted cerumen 07/15/2024 10:00 AM CLOTH EXAMINER Office Visit [facility] Dermatology [address] [facility] Outpatient [facility] [address] [place] [phone] Farhad Arriola MD Rash (Primary Dx); Mucositis 07/10/2024 [facility] ENT [address] [place] [address] [place] [phone] Rebecca Morgan MS from Last 3 Months Allergies No known active allergies Medications multivitamin-mi nerals-lutein (Multivitamin 50 Plus) tablet 1 tablet DAILY (route: oral) 3 Active multivit with minerals/lutein (MULTIVITAMIN 50 PLUS ORAL) 1 Active amLODIPine (NORVASC) 5 mg tablet 1 tablet DAILY (route: oral) 3 Active atenoloL (TENORMIN) 100 mg tablet 1 tablet DAILY (route: oral) 3 Active simvastatin (ZOCOR) 20 mg tablet 1 tablet DAILY (route: oral) [address] (PROTONIX) 40 mg EC tablet Take by mouth daily as needed Active Xarelto 20 mg tablet Xarelto 20 mg tablet 5 Active ipratropium-alb uteroL (DUO-NEB) 0.5-2.5 mg/3 mL nebulizer solution USE 1 AMPULE IN NEBULIZER 4 TIMES DAILY Active budesonide-glyc opyr-formoterol (Breztri Aerosphere) 160-9-4.8 mcg/actuation inhaler 2 puff 2 TIMES DAILY (route: inhalation) 1 Active albuterol 2.5 mg /3 mL (0.083 %) nebulizer solution USE 1 VIAL IN NEBULIZER THREE TIMES DAILY NEEDED Active dexAMETHasone oral liquid 0.5 mg/5 mL Swish 5ml in mouth twice daily and then spit. Do not swallow. 350 mL 1 Active predniSONE (DELTASONE) 20 mg tablet Prednisone 20mg, take 3 po qAM x 7 days, then take 2 po qAM x 7 days, then take 1 po every day until seen in clinic. Disp 49. 0 RF. 49 tablet Active Active Problems Problem Noted Date Diagnosed Date Pemphigus vulgaris 07/28/2024 Social History Tobacco Use Types Packs/Day Years Used Date Smoking Tobacco: Former Cigarettes Smokeless Tobacco: Former Tobacco Cessation:Counseling Given: Not Answered Sex and Gender Information Value Date Recorded Sex Assigned at Not on file Legal Sex Male 12:15 PM CLOTH EXAMINER Gender Identity Not on file Sexual Orientation Not on file Last Filed Vital Signs Vital Sign Reading Time Taken Comments Blood Pressure 145/105 03/14/2017 11:51 AM CDT Pulse 82 03/14/2017 11:51 AM CDT Temperature - - Respiratory Rate - - Oxygen Saturation - - Inhaled Oxygen Concentration - - Weight 62.6 kg (138 lb) 07/15/2024 1:14 PM CLOTH EXAMINER Height 180.3 cm (5' 10.98 ) 03/11/2017 11:36 AM CDT Body Mass Index 19.26 03/11/2017 11:36 AM CDT Plan of Treatment Not on file Procedures Procedure Name Priority Date/Time Associated Diagnosis Comments HEPATITIS PANEL, ACUTE Routine 07/31/2024 12:00 PM CDT High risk medication use TB TEST, QUANTIFERON GOLD Routine 07/30/2024 11:27 AM CDT SPECIMEN STATUS REPORT Routine 07/29/2024 11:25 AM CDT HIV 1/2 ANTIBODY PLUS P24 ANTIGEN Routine 07/29/2024 11:25 AM CDT Rash and other nonspecific skin eruption BLOOD MISC TO LONE WOLF Routine 07/15/2024 12 :00 PM CLOTH EXAMINER SURGICAL PATHOLOGY Routine 07/15/2024 12 :00 AM CLOTH EXAMINER from Last 3 Months Results * Hepatitis panel, acute Blood (07/31/2024 12:00 PM CDT) Pathologist [facility] [place] Hep A IgM Nonreactive Nonreactive Comment: Interpretive Data: If Hep A IgM Ab is reported as Equivocal, a new sample should be drawn in two weeks for testing. Current interpretive data was last revised on 19. Hep B core IgM Nonreactive Nonreactive [facility] Comment: Interpretive Data If HepB Core IgM Ab is reported as Equivocal, a new sample should be drawn in two weeks for testing. Current interpretive data was last revised on 19. Hep C Ab Nonreactive Nonreactive [facility] Comment: Interpretive Data Nonreactive: Antibodies to HCV not detected. Does NOT exclude the possibility of recent exposure to HCV. Equivocal: Equivocal for HCV antibodies. Supplemental molecular testing will be automatically performed to determine infection status in accordance with current CDC screening recommendations. Reactive: Positive for HCV antibodies. This may represent current or past HCV infection. Supplemental molecular testing will be automatically performed to determine current infection status in accordance with current CDC screening recommendations. Interpretive data was last revised on 2019. HepBsAg Nonreactive Nonreactive [facility] Blood 07/31/2024 12:0 0 PM CDT 07/31/2024 4:00 PM CDT Farhad Arriola MD LAB MICROBIOLOGY - GENERA L ORDERABLES Final Result [facility] [address] [place] [address] * TB test, quantiferon gold (07/30/2024 11:27 AM CDT) Pathologist [facility] [place] QuantiFERON Incubation Incubation performed. [facility] - 01 QuantiFERON Criteria Comment [facility] - 01 Comment: QuantiFERON-TB Gold Plus is a qualitative indirect test for M tuberculosis infection (including disease) and is intended for use in conjunction with risk assessment, radiography, and other medical and diagnostic evaluations. The QuantiFERON-TB Gold Plus result is determined by subtracting the Nil value from either TB antigen (Ag) value. The Mitogen tube serves as a control for the test. QuantiFERON TB1 Ag Value 0.01 IU/mL [facility] - 01 QuantiFERON TB2 Ag Value 0.01 IU/mL [facility] - 01 QuantiFERON Nil Value 0.01 IU/mL [facility] - 01 QuantiFERON Mitogen Value 3.67 IU/mL [facility] - 01 QuantiFERON-TB Gold Plus Negative Negative [facility] - 01 Comment: No response to M tuberculosis antigens detected. Infection with M tuberculosis is unlikely, but high risk individuals should be considered for additional testing (ATS/IDSA/CDC Clinical Practice Guidelines, 2017). The reference range is an Antigen minus Nil result of <0.35 IU/mL. Chemiluminescence immunoassay methodology 07/30/2024 11:2 7 AM CDT 07/30/2024 Narrative [facility] - 08/03/2024 3:09 PM CDT Performed at: [address] [place] [id number] Hydraulic Dredge Operator: Brando Kang PhD, Phone: [phone] Farhad Arriola MD LAB BLOOD ORDERABLES Landy l [facility] - 01 * Specimen Status Report (07/29/2024 11:25 AM CDT) Pathologist [facility] [place] Specimen Status Report Comment [facility] - 01 Comment: ABN Option 3 ABN Option 3 One or more tests were removed at the request of the patient and may not be represented on this report. As a result, some or all of the tests originally requested may not have been performed or may be reported separately. Please contact your patient regarding any necessary follow-up. 07/29/2024 11:2 5 AM CDT 07/29/2024 Narrative [facility] - 07/30/2024 8:12 AM CDT Performed at: [address] [place] [id number] Hydraulic Dredge Operator: Brando Kang PhD, Phone: [phone] Farhad Arriola MD LAB BLOOD ORDERABLES Landy l Result [facility] - 01 * HIV 1/2 Antibody plus p24 Antigen Blood (07/29/2024 11:25 AM CDT) HIV 1/2 Ab + p24 Ag Non Reactive Non Reactive [facility] - 01 Comment: HIV-1/HIV-2 antibodies and HIV-1 p24 antigen were NOT detected. There is no laboratory evidence of HIV infection. HIV Negative Blood 07/29/2024 11:2 5 AM CDT 07/29/2024 Narrative [facility] - 07/30/2024 8:12 AM CDT Performed at: [address] [place] [id number] Hydraulic Dredge Operator: Brando Kang PhD, Phone: [phone] Farhad Arriola MD LAB MICROBIOLOGY - GENERA L ORDERABLES Final Result Performing Organization Address [facility] Co de Phone Number [facility] - 01 * (ABNORMAL) BLOOD MISC TO LONE WOLF (07/15/2024 12:00 PM CLOTH EXAMINER) Test name, chem DSGAB,BHANU MOGLEIN 1 AND 3, SERUM(PEM PHIGUS) [place] ref Lab Misc See Footnote( A) [facility] Comment: Test Result Flag Unit RefValue Desmoglein 1 and 3, Serum DSG 1 6 RU/mL <20 DSG 3 42 H RU/mL <20 The Dsg1 and Dsg3 RAE tests are intended for in vitro use as an aid in the diagnosis of pemphigus and related entities. Positive test results could be compatible with a diagnosis of pemphigus. However, final clinical diagnosis should be based on integration of clinical features and results of other supportive tests, such as histopathology on standard microscopy, perilesional biopsy for direct immunofluorescence (test code CIB), and indirect immunofluorescence on human salt-split skin and monkey esophagus substrates (test code CIFS). ADDITIONAL INFORMATION Dsg1 and Dsg3 are intended for in vitro diagnostic use as an aid in the diagnosis of pemphigus and related entities, and should be interpreted in conjunction with other laboratory and clinical findings. This test has been modified from the fondant machine operator's instructions. Its performance characteristics were determined by [facility] in a manner consistent with CLIA requirements. This test has not been cleared or approved by the U.S. Food and Drug Administration. Test Performed by: [place] [address] Hydraulic Dredge Operator: Tyler Blanco Ph.D.; CLIA# [id number] Blood 07/15/2024 12:0 0 PM CLOTH EXAMINER 07/15/2024 12:56 PM CLOTH EXAMINER Farhad Arriola MD LAB BLOOD ORDERABLES Landy maya Result [facility] [place] [address] [facility] Lab * Surgical pathology (07/15/2024 12:00 AM CLOTH EXAMINER) Skin/Oral for IF (immunofluorescen ce) 07/15/2024 07/16/2024 9:37 AM CLOTH EXAMINER Narrative 07/17/2024 2:18 PM CLOTH EXAMINER EPIC results best viewed via link to PDF [facility] Dermatopathology Center [facility], [address], [place] [address] [email or web address] Note to Patients: This report may contain a detailed description of human tissue sent by a health care provider to the laboratory for pathologic evaluation. The content of this report is essential for diagnosis and may provide important critical findings. This information may be unfamiliar to patients to review without a medical professional present. It is advised that the patient review this report in the presence of a health care provider who can answer questions and explain the details. FINAL REPORT Patient Information: PATIENT NAME: DONTA DOHERTY SEX: M : 1950 (Age: 73) Specimen Information: COLLECTED: 07/15/2024 RECEIVED: 07/16/2024 REPORTED: 07/17/2024 Submitting Physician Information: Farhad Arriola M.D. [address] [place] [address], [address] [place] [address], DERMATOPATHOLOGY REPORT RESULTS DIAGNOSIS: A. SKIN, RIGHT LOWER BACK, BIOPSY FOR DIRECT IMMUNOFLUORESCENCE: SUBTLE INTERCELLULAR DEPOSITION OF C3 WITHIN THE LOWER EPIDERMIS Note: The findings are suggestive of those seen in pemphigus vulgaris, although IgG is negative (as are all other immunoreactants). Please correlate with clinical findings and/or RAE studies to confirm. B. SKIN, RIGHT LOWER BACK, PUNCH BIOPSY: DERMAL FIBROSIS Note: The findings are not diagnostic of a specific entity but could represent a resolving process. dh/isr By this signature, I attest that the above diagnosis is based upon my personal examination of the slides(and/or other material indicated in the diagnosis). Virgie Carmichael M.D. Report Electronically Reviewed and Signed Out By Virgie Carmichael M.D. 07/17/2024 14:18:26 CLINICAL INFORMATION A-B. PEMPHIGUS SPECIMEN DATA MICROSCOPIC DESCRIPTION: A. The sections were reacted with antibodies to IgG, IgA, IgM, C3 and fibrinogen. Significant immunofluorescence staining is not seen with IgG, IgA, IgM or fibrinogen. B. There is subtle dermal fibrosis. (L90.5) GROSS DESCRIPTION: A. Received in Antonio s fixative is a cylindrical piece of pale rees, finely scaling skin and adipose tissue measuring 0.4 by 0.4 by 0.7 cm. The specimen is submitted for direct immunofluorescence study. B. Received in a formalin-containing bottle is a cylindrical piece of pale rees, finely scaling skin and adipose tissue measuring 0.4 by 0.4 by 0.6 cm. The surgical margin is inked blue. The specimen is sectioned into 2 pieces and submitted entirely in a single cassette. Due to shrinkage, measurements may be different than those at time of procedure. dh/dxv ICD-9 ZSD.1387 Clerical Data A; 1204, 04532, 60749, 07075, 53499 B; 28041 The characteristics of special, immunohistochemical, and immunofluorescence stains and in-situ hybridization tests performed by the [facility] were deemed acceptable in ongoing quality consultant measures and in compliance with regulations drawn from the Clinical Laboratory Improvement Act wn3821 (CLIA '88). Control reactions for all stains performed were deemed adequate and appropriate by a pathologist prior to evaluation of patient tissue. Some diagnoses were rendered with the assistance of laboratory-developed tests utilizing analyte-specific reagents; the performance characteristic of these tests were determined by [facility] and are not cleared or approved by the [place] Food an Drug administration. Laboratory developed test may only be performed in a facility that is certified by the [facility] as a high-complexity laboratory under CLIA '88. These tests are used for clinical purposes and are not investigational. Farhad Arriola MD LAB PATHOLOGY ORDERABLES Final Result from Last 3 Months Insurance MEDICARE [facility] MEDICARE [facility] MEDICARE [facility] Care Teams Business Services Manager Relationship Specialty Start Date End Date Martin Tejeda MD PCP - General 03/09/17
--- OUTSIDE RECORDS SUMMARY | 2024-08-04 09:10 | XMS_ITS | Data Portability ---
Author Organization [facility], Main Office Address [address] [place] [address] Care Team Providers Care Deputy Brand Inspector Name Role Phone ELMER TEJEDA Primary Care Provider Assessment No assessment recorded. Plan of Treatment Reminders Order Date Submit Date Provider Last Modified By Organization Details Last Modified Time Details Appointments None recorded. Lab unlisted lab - CBC study [address] (Lab), [address] [place], [address], 4 08:31:44 uric acid, serum or plasma [address] (Lab), [address] [place], [address], 4 08:31:43 lipid panel, serum [address] (Lab), [address] [place], [address], 4 08:31:43 CMP, serum or plasma [address] (Lab), [address] [place], [address], 4 08:31:43 Referral None recorded. Procedures None recorded. Surgeries None recorded. Imaging None recorded. Medication Orders clotrimazol e 10 mg mitzi 2024 025 [facility] [address] [facility], [place], [address], 5 12:42:55 furosemide 40 mg tablet 2023 024 [facility] [address] [facility], [place], [address], 4 14:30:48 amlodipine 5 mg tablet 2023 024 [facility] [address] [facility], [place], [address], 4 14:30:48 pantoprazol e 40 mg tablet,sebastián yed release 2023 024 [facility] [address] [facility], [place], [address], 4 13:56:11 amlodipine 10 mg tablet 2023 024 [email or web address] [facility] [address] [facility], [place], [address], 12:46:53 Patient TargetsNo targets recorded. Patient Instructions Encounter Date Encounter Id Patient Instructions Last Modified By Organization Details Last Modified Time 09/02/2023 [id number] dementia rating scale-2* Not available 09/02/2023 12:11:46 alcohol misuse* Not available 09/02/2023 12:11:46 depression screening* Not available 09/02/2023 12:11:46 multi-dimensiona l health assessment questionnaire* [facility] Not available 09/02/2023 12:11:47 Personalized a lth Plan and Screening Recommendations Advance Directives - [...] Cancer Screening: Colonoscopy Date Screening Last Performed: _2020 Eye Disease Screening: Ordered Recommended today Dementia Risk: Low I have no recommendations Depression Screening: Negative [email or web address] Not available 09/02/2023 12:03:37 Reason for Referral None Reported. Results Created Date Observation Date Name Description Value Unit Range Abnormal Flag Note LastModifiedBy Organization Detail LastModifiedTime 11/14/19 24 11/14/2023 CBC W/O DIFFE RENTI AL white blood cells 5.7 x10'3 /uL 4.2-10 .8 Not Available [facility] (Lab) [address] [place], [address], 11/14/2023 19:13:38 11/14/19 24 11/14/2023 CBC W/O DIFFE RENTI AL red blood cells 4.75 x10'6 /uL 4.10-5 .80 Not Available [facility] (Lab) [address] [place], [address], 11/14/2023 19:13:38 11/14/19 24 11/14/2023 CBC W/O DIFFE RENTI AL hemoglobin 14.8 g/dL 13.2-1 7.0 Not Available [facility] (Lab) [address] [place], [address], 11/14/2023 19:13:38 11/14/19 24 11/14/2023 CBC W/O DIFFE RENTI AL hematocrit 45.4 % 39.3-5 0.0 Not Available [facility] (Lab) [address] [place], [address], 11/14/2023 19:13:38 11/14/19 24 11/14/2023 CBC W/O DIFFE RENTI AL mean red cell volume 95.6 fL 80.0-9 7.0 Not Available [facility] (Lab) [address] [place], [address], 11/14/2023 19:13:38 11/14/19 24 11/14/2023 CBC W/O DIFFE RENTI AL mean red cell hemoglobin 31.2 pg 27.0-3 3.0 Not Available [facility] (Lab) [address] [place], [address], 11/14/2023 19:13:38 11/14/19 24 11/14/2023 CBC W/O DIFFE RENTI AL mean RBC HGB concentratio n 32.6 g/dL 31.0-3 6.0 Not Available [facility] (Lab) [address] [place], [address], 11/14/2023 19:13:38 11/14/19 24 11/14/2023 CBC W/O DIFFE RENTI AL red cell distribution width 13.7 % 11.8-1 5.5 Not Available [facility] (Lab) [address] [place], [address], 11/14/2023 19:13:38 11/14/19 24 11/14/2023 CBC W/O DIFFE RENTI AL platelets 244 x10'3 /uL 150-40 0 Not Available [facility] (Lab) [address] [place], [address], 11/14/2023 19:13:38 11/14/19 24 11/14/2023 CBC W/O DIFFE RENTI AL mean platelet volume 11.0 fL 9.0-12 .4 Not Available [facility] (Lab) [address] [place], [address], 11/14/2023 19:13:38 11/14/19 24 11/14/2023 COMPR EHENS YOSHI METAB OLIC PANEL sodium 134 mmol/ L 137-14 5 low Not Available [facility] (Lab) [address] [facility] [place], [address], 11/14/2023 19:33:35 11/14/19 24 11/14/2023 COMPR EHENS YOSHI METAB OLIC PANEL potassium 4.5 mmol/ L 3.5-5. 1 Not Available [facility] (Lab) [address] [place], [address], 11/14/2023 19:33:35 11/14/19 24 11/14/2023 COMPR EHENS YOSHI METAB OLIC PANEL chloride 98 mmol/ L 98-107 Not Available [facility] (Lab) [address] [place], [address], 11/14/2023 19:33:35 11/14/19 24 11/14/2023 COMPR EHENS YOSHI METAB OLIC PANEL carbon dioxide 32 mmol/ L 22-30 high Not Available [facility] (Lab) [address] [place], [address], 11/14/2023 19:33:35 11/14/19 24 11/14/2023 COMPR EHENS YOSHI METAB OLIC PANEL anion gap 8.5 mmol/ L 14-22 low Not Available [facility] (Lab) [address] [place], [address], 11/14/2023 19:33:35 11/14/19 24 11/14/2023 COMPR EHENS YOSHI METAB OLIC PANEL glucose 97 mg/dL 70-99 Not Available [facility] (Lab) [address] [place], [address], 11/14/2023 19:33:35 11/14/19 24 11/14/2023 COMPR EHENS YOSHI METAB OLIC PANEL BUN 13 mg/dL 8-19 Not Available [facility] (Lab) [address] [place], [address], 11/14/2023 19:33:35 11/14/19 24 11/14/2023 COMPR EHENS YOSHI METAB OLIC PANEL creatinine 0.60 mg/dL 0.66-1 .25 low Not Available [facility] (Lab) [address] [place], [address], 11/14/2023 19:33:35 11/14/19 24 11/14/2023 COMPR EHENS YOSHI METAB OLIC PANEL GFR >60 Refer ence Range : [place] ge GFR Healt hy Adult : >60 [...] or ethni c subgr oups, such as [facility] nics. Outsi de the valid ated fredo eters , estim ated GFR is less accur ate, requi ring clini charley judgm ent on a case- by-ca se basis . Clini charley inter preta tion for other races and ages must be made by the clini baldomero. The MDRD study equat ion has not been valid ated for the evalu ation of serum creat inine relat ed to nutri brittany l statu s or medic ation usage . For perso ns <18 years of age, a pedia tric GFR calcu lator is avail able on the [facility] websi te: [email or web address] :[email or web address] [email or web address] rg/pr ofess ional s/kdo qi/gf r_cal culat or Not Available [facility] (Lab) [address] [place], [address], 11/14/2023 19:33:35 11/14/19 24 11/14/2023 COMPR EHENS YOSHI METAB OLIC PANEL alkaline phosphatase 101 U/L 38-126 Not Available [facility] (Lab) [address] [place], [address], 11/14/2023 19:33:35 11/14/19 24 11/14/2023 COMPR EHENS YOSHI METAB OLIC PANEL alanine aminotransfe rase 16 U/L 0-50 Not Available [facility] (Lab) [address] [place], [address], 11/14/2023 19:33:35 11/14/19 24 11/14/2023 COMPR EHENS YOSHI METAB OLIC PANEL aspartate aminotransfe rase 29 U/L 15-46 Not Available [facility] (Lab) [address] [place], [address], 11/14/2023 19:33:35 11/14/19 24 11/14/2023 COMPR EHENS YOSHI METAB OLIC PANEL bilirubin, total 0.50 mg/dL 0.20-1 .30 Not Available [facility] (Lab) [address] [place], [address], 11/14/2023 19:33:35 11/14/19 24 11/14/2023 COMPR EHENS YOSHI METAB OLIC PANEL calcium 8.5 mg/dL 8.4-10 .2 Not Available [facility] (Lab) [address] [place], [address], 11/14/2023 19:33:35 11/14/19 24 11/14/2023 COMPR EHENS YOSHI METAB OLIC PANEL total protein 6.5 g/dL 6.3-8. 2 Not Available [facility] (Lab) [address] [place], [address], 11/14/2023 19:33:35 11/14/19 24 11/14/2023 COMPR EHENS YOSHI METAB OLIC PANEL albumin 4.0 g/dL 3.0-4. 4 Not Available [facility] (Lab) [address] [place], [address], 11/14/2023 19:33:35 11/14/19 24 11/14/2023 COMPR EHENS YOSHI METAB OLIC PANEL globulin 2.5 g/dL 2.6-4. 2 low Not Available [facility] (Lab) [address] [place], [address], 11/14/2023 19:33:35 11/14/19 24 11/14/2023 COMPR EHENS YOSHI METAB OLIC PANEL A/G ratio 1.6 ratio 1.0-2. 0 Not Available [facility] (Lab) [address] [place], [address], 11/14/2023 19:33:35 11/14/19 24 11/14/2023 URIC ACID SERUM uric acid 4.7 mg/dL 3.5-8. 5 Not Available [facility] (Lab) [address] [place], [address], 11/14/2023 19:33:37 11/14/19 24 11/14/2023 LIPID PANEL cholesterol 197 mg/dL 140-19 9 NIH RIC NSUS RECOM MENDA TION FOR NAN STERO L: ADULT CHILD LOW RISK: <200 <170 BORDE RLINE : <200- 239 ----- HIGH RISK: >240 >200 Not Available [facility] (Lab) [address] [place], [address], 11/14/2023 19:33:38 11/14/19 24 11/14/2023 LIPID PANEL triglyceride s 140 mg/dL 0-150 NIH RIC NSUS REPOR T RECOM MENDA TION FOR TRIGL YCERI BHANU: ADULT CHILD LOW RISK: <150 ----- BODER LINE: 150-1 99 ----- HIGH RISK: >200 ----- Not Available [facility] (Lab) [address] [place], [address], 11/14/2023 19:33:38 11/14/19 24 11/14/2023 LIPID PANEL HDL cholesterol 61 mg/dL 40- Not Available [facility] (Lab) [address] [place], [address], 11/14/2023 19:33:38 11/14/19 24 11/14/2023 LIPID PANEL [...] WILL NOT BE REPOR ASHLYN. Not Available [facility] (Lab) [address] [place], [address], 11/14/2023 19:33:38 01/24/20 24 01/23/2024 XR, ribs, [...] ation record ed. Not Available 2024 08:57:52 07/22/19 25 07/18/2024 CT, angio gram, chest , w/o contr ast No observ ation record ed. Not Available 03/12/ 2025 14:17:44 Result Notes None recorded. Problems Name Problem SNOMED Code Status Onset Date Resolution Date Notes Provider Name and Address Organization Details Recorded Time Chronic obstruct yoshi pulmonar y disease 61147017 Active Not Available [facility] 3 02:48:08 Hyperkal emia 18238628 Active Not Available [facility] 3 02:48:08 Liver function tests outside referenc e range 665103429 Active 2022 Krystina lawrence RMA null, [facility] 3 10:00:45 Postoper ative visit 010772349 Completed 201712/12/2021 Not Available [facility] 3 02:48:08 Pneumoni a 545316403 Completed 202208/20/2022 Krystina lawrence RMA null, [facility] 3 10:00:38 Gastroes ophageal reflux disease 470848969 Active 2020 Not Available [facility] 3 02:48:08 Fracture of calcaneu s 848337659 Completed 201712/12/2021 Not Available [facility] 3 02:48:08 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 861396768 Active 2016 Not Available [facility] 3 02:48:09 Prostate specific antigen above referenc e range 800367533 Active 2021 Not Available [facility] 3 02:48:09 Malignan t tumor of prostate 526078494 Active 2021 Not Available [facility] 3 02:48:09 Melanocy tic nevus 998966327 Completed Not Available [facility] 3 02:48:09 Epidermo id cyst of skin 993492960 Completed Not Available [facility] 3 02:48:09 Solitary nodule of lung 067814393 Active Not Available [facility] 3 02:48:09 Former heavy tobacco smoker 65615269557 4100 Active 2016 Not Available [facility] 3 02:48:09 History of polyp of colon 538229027 Active Not Available [facility] 3 02:48:09 Aneurysm of thoracic aorta 259905397 Active Not Available [facility] 3 02:48:09 Cough 33435055 Completed Not Available [facility] 3 02:48:09 Upper respirat ory infectio n 46187471 Completed Elmer Tejeda MD [address], [place], [address] , [facility] 3 11:11:50 Hyperlip idemia 70572773 Active Not Available [facility] 3 02:48:09 Occult blood detected in feces 33545126 Active history of heme pos stools, no hemorrho ids in the past Not Available [facility] 3 02:48:10 Essentia l hyperten trey 58363330 Active Not Available [facility] 3 02:48:10 Polyp of colon 62323442 Active Not Available [facility] 3 02:48:10 Erectile dysfunct ion 598446355 Active 2020 Not Available [facility] 3 02:48:10 Gout 33528846 Active Not Available [facility] 3 02:48:10 Pleural effusion 07797365 Active 2022 Elmer Tejeda MD [address], [address], [place], [address] , [facility] 3 10:21:33 Thrombos is of thoracic aorta 34300696 Active 2022 Elmer Tejeda MD [address], [address], [place], [address] , [facility] 3 10:28:10 Upper respirat ory infectio n 11194194 Active 2022 Elmer Tejeda MD [address], [address], [place], [address] , [place] [facility] 3 11:11:50 Acid reflux 052747882 Active 2023 Krystina lawrence ROYER null, [employer] [facility] 4 11:49:02 Malignan t tumor of lung 135568097 Active 2023 Elmer Tejeda MD [address] [facility], [place] [address], [place], [address] , [employer] 4 11:09:13 Edema of lower extremit y 914714230 Active 2023 Elmer Tejeda MD [address] [facility], [place] [address], [place], [address] , [facility] 4 14:25:09 Edema 407637189 Active 2023 Elmer Tejeda MD [address] [facility], [place] [address], [place], [address] , [facility] 4 10:59:59 Sinusiti s 98083440 Active 2024 Rona Dunbar MA null, [employer] [facility] 5 11:36:00 Candidia sis of mouth 18677334 Active 2024 Elmer Tejeda MD [address] [facility], [place] [address], [place], [address] , [facility] 5 12:39:31 Problem Notes None recorded. Procedures Surgical History Date Name Laterality Status Provider Name and Address Organization Details Recorded Time 09/02/19 24 Medicare Wellness CPT Code, subsequent completed Brianna Urbina RN [facility] 09/02/2023 11:57:36 08/21/19 23 Medicare Wellness CPT Code, subsequent completed Amy Vincent RN [facility] 08/20/2022 10:29:04 Orthopedic Surgery completed Not Available [facility] 07/18/2022 02:42:55 colonoscopy completed Not Available [facility] 07/18/2022 02:42:55 Imaging Results Imaging Date Name Status LastModified by Organiz ation Details LastModified Time 01/23/2024 XR, ribs, bilateral completed [facility] Information not available 01/24/2024 17:36:24 01/28/2024 XR, thoracic spine, 3 view completed [facility] Information not available 01/28/2024 18:10:50 04/12/2024 XR, chest, 2 view completed [facility] Information not available 04/14/2024 17:40:33 05/07/2024 PET, skull base to mid-thigh completed Information not available 06/03/2024 08:57:52 07/18/2024 CT, angiogram, chest, w/o contrast completed Information not available 07/29/2024 14:17:44 Procedure Notes None recorded. Medical Equipment None Reported. Allergies No known drug allergies Medications Name Sig Start Date Stop Date Status Note LastModified by Organization Details LastModified Time lido2%/ny wf632s/pr edn15/5 susp SWISH AND SWALLOW 5-10ML BY MOUTH 6 HOURS NEEDED active Not Available Not Available No t Available amoxicill in 500 mg capsule Take 1 capsule every 8 hours by oral route for 10 days. 07/20 completed Not Available Not Available Not Available furosemid e 40 mg tablet Take 1 tablet by mouth once daily 2024 active Not Available Not Available Not Avai lable clotrimaz ole 10 mg mitzi Take 1 [...] BY MOUTH ONCE DAILY FOR 5 DAYS 08/03 completed Not Available Not Available Not Available benzonata te 200 mg capsule Take [...] t Available amlodipin e 5 mg tablet Take 1 tablet by mouth once daily 2024 active [facility] 06/17/24 ok to rf Not Available Not Available Not Available peg-elect rolyte solution 420 gram oral solution USE DIRECTED 12/13 completed Not Available Not Available Not Available sildenafi l 100 mg tablet Take 1 tablet every day by oral route as needed. active Not Available Not Available No t Available ketorolac 0.5 % eye drops 08/07 completed Not Available Not Available Not Available dexametha sone 0.5 mg/5 mL oral solution SWISH 5 ML IN MOUTH AND SPIT TWICE DAILY. DO NOT SWALLOW. active Not Available Not Available No t Available oxycodone -acetamin ophen 5 mg-325 mg [...] Not Available Not Available No t Available lidocaine HCl 2 % mucosal solution active Not Available Not Available Not Available prednisol one 15 mg/5 mL oral solution active Not Available Not Available Not Available lisinopri l 10 mg-hydroc hlorothia zide [...] Updated DateTime 4 175.26 cm 25.3 kg/m2 16114.3 g 97.5 [degF] 71 /min 94 % 94 % 140 mm[Hg] 86 mm[Hg] Krystina lynn Tenisha [employer] [facility] [employer] [facility] 4 11:44:14 Date Recorded Pain severity - 0-10 verbal numeric rating [Score] - Reported Provider Name and Address Organization Details Last Updated DateTime 09/02/2023 0 Brianna Urbina RN [facility] [email or web address] [facility] 09/02/2023 11:57:54 Date Recorded Body height Body mass index (BMI) Body weight Body temperature Heart rate Oxygen saturation Oxygen saturation in Arterial blood by Pulse oximetry Systolic blood pressure Diastolic blood pressure Provider Name and Address Organization Details Last Updated DateTime 4 175.26 cm 25.5 kg/m2 54330.4 8 g 96.8 [degF] 77 /min 93 % 93 % 116 mm[Hg] 70 mm[Hg] Krystina lynn [facility] [email or web address] [facility] 4 10:51:22 Date Recorded Body height Body mass index (BMI) Body weight Body temperature Heart rate Oxygen saturation Oxygen saturation in Arterial blood by Pulse oximetry Systolic blood pressure Diastolic blood pressure Provider Name and Address Organization Details Last Updated DateTime 4 175.26 cm 24.2 kg/m2 93939.1 5 g 97.4 [degF] 89 /min 90 % 90 % 120 mm[Hg] 66 mm[Hg] Krystina lynn Tenisha [facility] [employer] [facility] 4 14:02:38 Date Recorded Body weight Body mass index (BMI) Body height Body temperature Heart rate Oxygen saturation Oxygen saturation in Arterial blood by Pulse oximetry Systolic blood pressure Diastolic blood pressure Provider Name and Address Organization Details Last Updated DateTime 4 91334 g 23.2 kg/m2 175.26 cm 97.7 [degF] 95 /min 97 % 97 % 116 mm[Hg] 68 mm[Hg] Krystina lynn Tenisha [facility] [email or web address] [facility] 4 10:46:53 Date Recorded Body height Body mass index (BMI) Body weight Body temperature Heart rate Oxygen saturation Oxygen saturation in Arterial blood by Pulse oximetry Inhaled oxygen flow rate Systolic blood pressure Diastolic blood pressure Provider Name and Address Organization Details Last Updated DateTime 5 175.26 cm 22.2 kg/m2 46622.8 6 g 97.6 [degF] 97 /min 96 % 96 % 2 L/min 119 mm[Hg] 78 mm[Hg] Qiana mi [facility] 5 12:32:51 Social History Question Answer Notes LastModified by Organization Details LastModified Time Tobacco Smoking Status Former Smoker Quit- 2005 Radha Nowak RN [email or web address], [facility] 04/19/2023 10:06:59 Do You Have An Advance Directive? Yes [id number] Information not available 07/18/2022 What Is Your Level Of Alcohol Consumption? Moderate 2-3x/wk [email or web address] Information not available 09/02/2023 Do You Wear A Helmet When Biking? No Information not available 04/19/2023 Are You Blind Or Do You Have Difficulty Seeing? No [email or web address] Information not available 04/19/2023 What Is Your Level Of Caffeine Consumption? Occasional 1 Cup Coffe In The Morning [id number] Information not available 07/18/2022 How Much Tobacco Do You Chew? None [id number] Information not available 07/18/2022 Are You Deaf Or Do You Have Serious Difficulty Hearing? No Information not available 04/19/2023 What Type Of Diet Are You Following? REGULAR [id number] Information not available 07/18/2022 Which Illicit Or Recreational Drugs Have You Used? None [email or web address] Information not available 04/19/2023 Do You Or Have You Ever Used E-cigarettes Or Vape? Never Used Electronic Cigarettes [email or web address] Information not available 04/19/2023 What Is The Highest Grade Or Level Of School You Have Completed Or The Highest Degree You Have Received? [id number] [email or web address] Information not available 04/19/2023 What Is Your Occupation? Retired Information not available 04/19/2023 Have There Been Any Changes To Your Family Or Social Situation? No [email or web address] Information not available 04/19/2023 What Is The Fluoride Status Of Your Home? Fluoridated [email or web address] Information not available 04/19/2023 When Did You Quit Smoking? 16+yearssincelastc igarette [email or web address] Information not available 04/19/2023 Are There Any Guns Present In Your Home? No Information not available 04/19/2023 Do You Use Insect Repellent Routinely? No [email or web address] Information not available 04/19/2023 Where Do You Live? SingleLevelHouse [email or web address] Information not available 04/19/2023 Advance Directive- Providers Has Reviewed Directive And Consents To Follow Them (insert Provider Name With Any Objectives In Notes Field) Yes [email or web address] Information not available 08/20/2022 Guns Present In The Home? Yes [email or web address] Information not available 09/02/2023 Are You Able To Care For Yourself? Yes Information not available 08/20/2022 Are You Blind Or Do Yo Have Difficulty Seeing? No [email or web address] Information not available 08/20/2022 Are You Deaf Or Do You Have Serious Difficulty Hearing? No [email or web address] Information not available 08/20/2022 General Stress Level? Low [email or web address] Information not available 08/20/2022 Live Alone Of With Others? With Others [email or web address] Information not available 08/20/2022 Do You Have A Medical Power Of Huller Operator? Yes [email or web address] Information not available 04/19/2023 What Was The Date Of Your Most Recent Tobacco Screening? 09/02/2023 [email or web address] Information not available 09/02/2023 Do You Have Any Pets? No [email or web address] Information not available 04/19/2023 What Is Your Relationship Status? [id number] Information not available 07/18/2022 Do You Use Your Seat Belt Or Car Seat Routinely? Yes [email or web address] Information not available 04/19/2023 Do You Have Smoke And Carbon Monoxide Detectors In Your Home? Yes Information not available 04/19/2023 At What Age Did You Start Smoking Tobacco? 12 [email or web address] Information not available 04/19/2023 Are You Passively Exposed To Smoke? No [email or web address] Information not available 04/19/2023 Do You Or Have You Ever Used Smokeless Tobacco? Never Used Smokeless Tobacco [id number] [id number] Information not available 07/18/2022 How Much Tobacco Do You Smoke? 3+ PPD [email or web address].[id number] [id number] Information not available 07/18/2022 Do You Feel Stressed (tense, Restless, Nervous, Or Anxious, Or Unable To Sleep At Night)? MO2692-0 [email or web address] Information not available 04/19/2023 Do You Use Any Illicit Or Recreational Drugs? No [email or web address] Information not available 04/19/2023 Do You Use Sunscreen Routinely? No [email or web address] Information not available 04/19/2023 Has Tobacco Cessation Counseling Been Provided? No [email or web address] Information not available 04/19/2023 How Many Years Have You Smoked Tobacco? 43 Information not available 04/19/2023 Have You Recently Traveled Abroad? Yes Last Mo Went To [place] [email or web address] Information not available 04/19/2023 Do You Have Any Dietary Restrictions? No [email or web address] Information not available 04/19/2023 Do You Or Have You Ever Used Any Other Forms Of Tobacco Or Nicotine? No [email or web address] Information not available 04/19/2023 Sex: Male Functional Status Question Answer Note LastModified by Organizat ion Details LastModified Time Do you have difficulty walking or climbing stairs? No [email or web address] Information not available 04/19/2023 Do you have transportation difficulties? No [email or web address] Information not available 04/19/2023 Are you able to walk? [email or web address] Information not available 04/19/2023 Do you have difficulty doing errands alone? No [email or web address] Information not available 04/19/2023 Are you able to care for yourself? Yes [email or web address] Information n ot available 04/19/2023 Do you have difficulty dressing or bathing? No [email or web address] Information not available 04/19/2023 What is your exercise level? Occasional [id number] Information not available 07/18/2022 Mental Status Question Answer Note LastModified by Organization D etails LastModified Time Do you have difficulty concentrating, remembering or making decisions? No Information no t available 04/19/2023 Family History Relationship Description Onset Age of this Age Resolved Age Notes LastModified by Organization Details LastModified Time Mother Malignant tumor of lung [id number] Not available 07/18/2022 02:42:57 Notes:Blood clot- father Medical History Condition Response GOUT Y GERD/NAUSEA Y COPD Y HYPERTENSION Y HIGH CHOLESTEROL / HYPERLIPIDEMIA Y Immunizations Vaccine Type Date Status Note Provider Nam e and Address Organization Details Recorded Time COVID-19, mRNA, LNP-S, PF, 30 mcg/0.3 mL dose 1 completed Not Available [facility] 07/18/2022 02:54:36 Influenza, high-dose, quadrivalent, PF 1 completed Not Available [facility] 07/18/2022 02:54:36 SARS-COV-2 (COVID-19) vaccine, UNSPECIFIED 1 completed Not Available [facility] 07/18/2022 02:54:37 SARS-COV-2 (COVID-19) vaccine, UNSPECIFIED 1 completed Not Available [facility] 07/18/2022 02:54:37 Influenza, high-dose, trivalent, PF 9 completed Not Available [facility] 07/18/2022 02:54:37 Influenza, split virus, trivalent, preservative 7 completed Not Available [facility] 07/18/2022 02:54:37 pneumococcal polysaccharide PPV23 7 completed Not Available [facility] 07/18/2022 02:54:37 Influenza, high-dose, trivalent, PF 0 completed Not Available [facility] 07/18/2022 02:54:37 influenza nasal, unspecified formulation 5 completed Not Available [facility] 07/18/2022 02:54:37 pneumococcal polysaccharide PPV23 4 completed Not Available [facility] 07/18/2022 02:54:37 Influenza, split virus, trivalent, PF 4 completed Not Available [facility] 07/18/2022 02:54:37 Past Encounters Encounter ID Performer Location Encounter Start Date Encounter Closed Date Diagnosis/Indication Diagnosis SNOMED-CT Code Diagnosis ICD10 Code Diagnosis Note [id number] [facility] [address] [place] [address] 08/30/2020 00:00:00 08/30/2020 12:16:34 [id number] _SHIVAM_M IGRATION_ DEFAULT_1 _1 , 10/12/2020 00:00:00 10/12/2020 11:39:09 [id number] [facility] [address] [place] [address] 12/27/2020 00:00:00 12/27/2020 10:48:46 [id number] [facility] [address] [place] [address] 04/26/2021 00:00:00 04/26/2021 13:17:38 [id number] [facility] [address] [place] [address] 08/28/2021 00:00:00 08/28/2021 10:02:42 [id number] [facility] [address] [place] [address] 12/18/2021 00:00:00 12/18/2021 10:10:52 [id number] [facility] [address] [place] [address] 04/19/2022 00:00:00 04/19/2022 10:09:01 [id number] [facility] [address] [place] [address] 06/07/2022 00:00:00 06/07/2022 12:04:24 [id number] Elmer Tejeda MD [facility] [address] [place] [address] 08/20/2022 09:52:55 08/20/2022 10:29:50 Essential hypertension 54893660 I10 Under control Chronic ob structive pulmonary disease 42036352 J44.9 Under control with inhalers Gout 37779353 M10.9 no recurrence Hyperlipidemia 05939831 E78.5 Stable watch diet Gastroesop hageal reflux disease 589603968 K21.9 Better Erectile dysfunction 860 788490 F52.21 Meds help Malignant tumor of prostate 717884636 C61 PSA- stable Adult heal th examination 158647165 Z00.00 Colonoscop y- 11/2020, polyp, next in 5 yrsPSA- 2Pre vnar 2016 @ Jan lisax- 04/2014, 02/2017[facility] T- 10/05/2020 FLU- 2COV ID- #1- 06/23/20, #2- 07/26/20, all boosters Pleural effusion 7528260 8 J90 recurrence , seeing pulm History of polyp of colon 602570278 Z86.010 Liver func tion tests outside reference range 164074312 R94.5 Solitary n odule of lung 294653112 R91.1 Family his tory of aneurysm of thoracic aorta 131241902 Z82.49 Thrombosis of thoracic aorta 97137638 I74.11 on xarelto, needs duration, he will discuss with cardiology Screening for disorder 482700203 Z13.9 [id number] Elmer Tejeda MD [facility] [address] [place] [address] 12/20/2022 10:00:02 12/20/2022 10:42:27 Essential hypertension 44224858 I10 Under control Chronic ob structive pulmonary disease 62776454 J44.9 Under control with inhalers, o2 as needed Gout 27481866 M10.9 no recurrence Hyperlipidemia 67668444 E78.5 Stable watch diet Gastroesop hageal reflux disease 916919327 K21.9 Better Malignant tumor of prostate 282022740 C61 PSA- stable Adult heal th examination 023242111 Z00.00 Colonoscop y- 11/2020, polyp, next in 5 yrsPSA- 2Pre vnar 2016 @ Jan lisax- 04/2014, 02/2017[facility] T- 10/05/2020 FLU- 2COV ID- #1- 06/23/20, #2- 07/26/20, all boosters Pleural effusion 5526384 8 J90 improved History of polyp of colon 685090439 Z86.010 Family his tory of aneurysm of thoracic aorta 076756104 Z82.49 seeing cardiology Thrombosis of thoracic aorta 54002263 I74.11 on xarelto, he needs it for life long due to previous h/o of DVT [id number] Elmer Tejeda MD [facility] [address] [place] [address] 04/19/2023 10:04:21 04/22/2023 09:55:17 Essential hypertension 03248800 I10 watch Chronic ob structive pulmonary disease 18479736 J44.9 Under control with inhalers, o2 as needed Gout 30288815 M10.9 no recurrence Hyperlipidemia 38120016 E78.5 Stable watch diet Gastroesop hageal reflux disease 116737545 K21.9 Better Malignant tumor of prostate 201070688 C61 PSA- stable Pleural effusion 9443486 8 J90 improved History of polyp of colon 041674650 Z86.010 Family his tory of aneurysm of thoracic aorta 270284833 Z82.49 seeing cardiology Thrombosis of thoracic aorta 60568019 I74.11 on xarelto, he needs it for life long due to previous h/o of DVT Adult heal th examination 504369996 Z00.00 Colonoscop y- 11/2020, polyp, next in 5 yrsPS- 2022 at urology , was 0.4Prevnar 2016 @ Jan ovax- 04/2014, 02/2017[facility] T- 10/05/2020 FLU- 2COV ID- #1- 06/23/20, #2- 07/26/20, all boosters Upper resp iratory infection 26719974 J06.9 mucinex prn , call next week if not better [id number] Elmer Tejeda MD [facility] [address] [place] [address] 09/02/2023 11:39:10 09/02/2023 12:15:37 Essential hypertension 15267097 I10 ^ the amlodipine Chronic ob structive pulmonary disease 79690406 J44.9 Under control with inhalers, o2 as needed Gout 61255035 M10.9 no recurrence Hyperlipidemia 27705657 E78.5 Stable watch diet Gastroesop hageal reflux disease 341677074 K21.9 Better Malignant tumor of prostate 113723778 C61 PSA- stable Pleural effusion 4156865 8 J90 improved Family his tory of aneurysm of thoracic aorta 094537514 Z82.49 seeing cardiology Thrombosis of thoracic aorta 08813244 I74.11 on xarelto, he needs it for life long due to previous h/o of DVT Adult heal th examination 536792697 Z00.00 Colonoscop y- 11/2020, polyp, next in 5 yrsPSA- 2022 at urology , was 0.4Prevnar 2016 @ rubénjonelle ovax- 04/2014, 02/2017[facility] T- 10/05/2020 , CT-Chest- 12/18/2022, PET- 09/18/2022 FLU- 02/2022, 02/22/2023R SV- 02/22/2023 OVID- #1- 06/23/20, #2- 07/26/20, 02/28/2023 all boosters Acid reflux 071615771 K2 1.9 Screening for disorder 047078733 Z13.9 [id number] Elmer Tejeda MD [facility] [address] [place] [address] 12/31/2023 10:43:14 12/31/2023 11:14:03 Essential hypertension 72297968 I10 better since dose was increased Chronic ob structive pulmonary disease 47067236 J44.9 Under control with inhalers, o2 as needed Gout 43014530 M10.9 no recurrence Hyperlipidemia 65215324 E78.5 Stable watch diet Gastroesop hageal reflux disease 328844776 K21.9 Better Malignant tumor of prostate 478176797 C61 PSA- stable, being li at urology Pleural effusion 1143186 8 J90 improved Thrombosis of thoracic aorta 57272587 I74.11 on xarelto, he needs it for life long due to previous h/o of DVT Acid reflux 260180954 K2 1.9 meds help Adult heal th examination 355830226 Z00.00 Colonoscop y- 11/2020, polyp, next in 5 yrsPSA- at urologyPre gallito 2016 @ Jan lisax- 04/2014, 02/2017[facility] T- 10/05/2020 , CT-Chest- 12/18/2022, PET- 09/18/2022 FLU- 02/2022, 02/22/2023R SV- 02/22/2023 OVID- #1- 06/23/20, #2- 07/26/20, 02/28/2023 all boosters Ex-smoker 2997259 Z87.89 1 has quit long time ago Malignant tumor of lung 351328561 C34.90 s/p RT, getting CT chest for f/u next month [id number] Elmer Tejeda MD [facility] Internal Med [address] [place] [address] 02/20/2024 13:58:54 02/20/2024 14:37:06 Edema of lower extremity 046674661 R60.0 could be due to amlodipine , will cut done the dose to 5 mgwill try Furosemide less likely DVT, although at high risk due yo cancer but already on xarelto Essential hypertension 40909863 I10 decrease the dose [id number] Elmer Tejeda MD [facility] Med [address] [place] [address] 03/24/2024 10:39:30 03/24/2024 11:02:13 Essential hypertension 31418689 I10 under control Edema 003291446 R60.9 improvedst op furosemide call if starts swelling again [id number] Elmer Tejeda MD [facility] [address] [place] [address] 06/17/2024 12:20:12 06/17/2024 12:48:52 Candidiasis of mouth 39176597 B37.0 Health Concerns Section Related Observation LastModified by Organization Detai ls LastModified Time None Recorded Concern Status LastModified by Organization Details LastModified Time None Recorded Advance Directives Directive Y: Payers Encounter Date Sequence Insurance Name Policy Number Policy Leonard Covered Member ID Leonard Member ID Guarantor Name 09/02/2023 1 [place] Donta Doherty [id number] Donta Doherty 09/02/2023 2 [employer] [place] (MEDICARE SUPPLEMENT) PLAN G Donta Whitelland [id number] Donta Ogdenlelland 12/31/2023 1 [place] Donta Whitelland [id number] Donta Ogdenlelland 12/31/2023 2 [employer] [place] (MEDICARE SUPPLEMENT) PLAN G Donta Ogdenlelland [id number] Donta Ogdenlelland 02/20/2024 1 [place] Dont[place] Whitelland [id number] 33 [id number] 3 Donat Ogdenlelland 02/20/2024 2 [employer] [place] (MEDICARE [place]PPLE[place]) PLAN Alex Ogdenlelland [id number] Donta Ogdenlelland 03/24/2024 1 [place] Donta Whitelland [id number] Donta Ogdenlelland 03/24/2024 2 [employer] [place] (MEDICARE SUPPLEMENT) PLAN Alex Whitelland [id number] Donta Ogdenlelland 06/17/2024 1 [place] Donta Whitelland [id number] 3 Donta Ogdenlelland 06/17/2024 2 [employer] [place] (MEDICARE SUPPLEMENT) PLAN Alex Whitelland [id number] Donta Whitelland Notes Date Note Type Note Provider Name and Address Organization Details Recorded Time 09/02/2023 text/html Doing fine, compliant to medications, no side affects, here for follow up. He has no complaints. HTN- BP is high x 2 visits, will adjust medsMeds- Amlodipine 5 mg daily, Atenolol 100 mg daily COPD, better with inhalers, sees Duran Waters NP, using o2 as neededMeds- Breztri 160 mcg/9 mcg 2 puffs BID , Ventolin inhaler PRNHe is ex- smoker. Quit 2006Lung nodule- CT scan showed increase in size [...] more, drinks wine , LFT nl Elmer Tejeda MD [address], [place], [address], [facility] 09/02/2023 13:55:14 12/31/2023 text/html Doing fine, compliant to medications, no side affects, here for follow up. He has no complaints. PT IS NOT FASTINGHTN- BP is under controlMeds- Amlodipine 10 mg daily, Atenolol 100 mg daily COPD, better with inhalers, sees Duran Waters NP, using o2 as neededMeds- Breztri 160 mcg/9 mcg 2 puffs BID , Ventolin inhaler PRNHe is ex- smoker. Quit 2005Lu cancer- non small cell, Finished Radiation, seeing [...] more, drinks wine , LFT nl Elmer Tejeda MD [address], [place], [address], [employer] 12/31/2023 11:13:44 02/20/2024 text/html Pt is here today for bilateral ankle swelling left ankle is worse.Ankles are red and swollen. No drainage. C/o tenderness and has been going on for 3 weeks.Appetite is poor. He is here today with his Prasanna walking in his O2 level was 78. Did come up to 90 after taking deep breathes in through his nose. He does have Oxygen out in the car.Would like a flu shot He is on amlodipine 10 mg qd, he has lost weight. He finished RT and supposed to get Ct chest He has no new sob H/o DVT in the past Elmer Tejeda MD [address], [address], [place], [address], [employer] [facility] 02/20/2024 15:54:57 03/24/2024 text/html Pt is here today for a 1 month follow upHe is currently on Furosemide for bilateral lower leg edema which has cleared.amlodipine was decreased to 5 mgHe has lost 7 lbs Elmer Tejeda MD [address], [address], [place], [address], [employer] [facility] 03/24/2024 11:01:45 06/17/2024 text/html Pt is here [...] not better.no pain on swallowingno fever Elmer Tejeda MD [address], [place], [address], [employer] [facility] 06/17/2024 12:43:49
--- OUTSIDE RECORDS SUMMARY | 2024-08-04 09:10 | XMS_ITS | Encounter Summary ---
Author Organization [facility] Address [address] [place] [address] Phone Care Team Providers Care Energy And Conservation Technician Name Role Phone Martin Tejeda MD Primary Care Provider [phone] Reason for Visit * Reason Onset Date Comments Med Refill 08/04/2024 Encounter Details Date Type Department Care Team (Late st Contact Info) Description 08/04/2024 Telephone [facility] Dermatology [address] [place] [address] Kane Leal RMA [address] [place] [address] Med Refill (/) Social History Tobacco Use Types Packs/Day Years Used Date Smoking Tobacco: Former Cigarettes Smokeless Tobacco: Former Sex and Gender Information Value Date Recorded Sex Assigned at Not on file Legal Sex 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 documented in this encounter Plan of Treatment Not on file documented as of this encounter Visit Diagnoses Not on filedocumented in this encounter Care Teams Energy And Conservation Technician Relationship Specialty Start Date End Date Martin Tejeda MD PCP - General 03/09/17 documented as of this encounter
--- OUTSIDE RECORDS SUMMARY | 2024-08-04 09:10 | XMS_ITS | Clinical Summary ---
Author Organization [facility] [address] Address [address] [place] [address] Care Team Providers Care Instrumental Teacher Name Role Phone Martin Tejeda MD Primary Care Provider Allergies No known active allergies Medications multivitamin-mi [...] Noted Date Diagnosed Date Pemphigus vulgaris 07/28/2024 Encounters Date Type Department Care Team Description 08/04/[address] [place] [address] Kane Leal RMA Med Refill (/) 07/31/2024 3:17 PM CDT - 07/31/2024 11:59 PM CDT Hospital Encounter [address] [address] High risk medication use Discharge Disposition: Discharge to home or self care 07/31/2024 10:00 AM CDT Lab [facility] Outpatient Lab at [address] [address] Pemphigus vulgaris (HCC) (Primary Dx) 07/31/[address] [place] [phone] Farhad Arriola MD Med Management 07/30/2024 Orders Only [address] [place] [address] Kane Leal RMA High risk medication use (Primary Dx) 07/30/2024 Orders Only [place] [address] [facility] 7th [place] [address] [place] [address] Farhad Arriola MD 07/30/2024 Orders Only [address] [place] [phone] Joelle Rosenbaum RN 07/28/2024 Orders Only [facility] Dermatology [address] [place] [address] [address] [place] [address] LealKane, RMA 07/28/2024 Orders Only [facility] Dermatology [address] [place] [address] [address] [place] [address] Kane Leal, RMA Rash and other nonspecific skin eruption (Primary Dx) 07/28/2024 Orders Only [facility] Dermatology [address] [place] [address] [address] [place] [phone] Kane Leal, RMA 07/28/2024 Results Follow-Up [facility] Dermatology [address] [place] [address] Outpatient Health [address] [place] [address] Farhad Arriola MD 07/28/2024 Results Follow-Up [facility] Dermatology [address] [place] [address] Health [address] [place] [address] Farhad Arriola MD 07/28/2024 Orders Only [facility] Dermatology [address] [place] [address] Health [address] [place] [address] Farhad Arriola MD 07/27/[address] [place] [phone] Farhad Arriola MD Medication Problem 07/16/2024 Orders Only [facility] [address] [place] [address] Farhad Arriola MD Rash 07/15/2024 1:20 PM INTERNAL AUDIT CONSULTANT Office Visit [facility] Department of Otolaryngology Head-Neck Division [address] [facility] Floor 5 [place] [address] Anai Anthony PA Oral mucosal lesion (Primary Dx); Oral thrush; Bilateral impacted cerumen 07/15/2024 11:50 AM INTERNAL AUDIT CONSULTANT Lab [facility] [address] [place] [address] [place] [address] Rash 07/15/2024 10:00 AM INTERNAL AUDIT CONSULTANT Office Visit [facility] Dermatology [address] [place] [address] Outpatient Health [address] [place] [address] Farhad Arriola MD Rash (Primary Dx); Mucositis 07/15/2024 Orders Only [facility] [address] [place] [address] Farhad Arriola MD 07/10/2024 Telephone [facility] ([facility]) - [facility] [address] [facility] Advanced Medicine 11th [place] [address] [place] [address] Rebecca Morgan MS from Last 3 Months Social History Tobacco Use Types Packs/Day Years Used Date Smoking Tobacco: Former Cigarettes Smokeless Tobacco: Former Tobacco Cessation:Counseling Given: Not Answered Sex and Gender Information Value Date Recorded Sex Assigned at Not on file Legal Sex Male 12:15 PM INTERNAL AUDIT CONSULTANT Gender Identity Not on file Sexual Orientation Not on file Obstetrics History Last Filed Vital Signs Vital Sign Reading Time Taken Comments Blood Pressure 145/105 03/14/2017 11:51 AM CDT Pulse 82 03/14/2017 11:51 AM CDT Temperature - - Respiratory Rate - - Oxygen Saturation - - Inhaled Oxygen Concentration - - Weight 62.6 kg (138 lb) 07/15/2024 1:14 PM INTERNAL AUDIT CONSULTANT Height 180.3 cm (5' 10.98 ) 03/11/2017 11:36 AM CDT Body Mass Index 19.26 03/11/2017 11:36 AM CDT Plan of Treatment Health Maintenance Due Date Last Done Comments Colon Cancer Screening-Colonoscopy 1950 Depression Screening 1950 Fall Risk Assessment 1950 DTaP/Tdap/Td Vaccine (1 - Tdap) 12/08/1959 Hepatitis B Screening 1966 Abdominal Aortic Aneurysm (A AA) Screen 2013 Well Visit 65+ 2013 Zoster Vaccine (2 of 2) 09/08/2023 07/14/2023 Covid-19 Vaccine (2023-2 5 season) 2024 03/01/2023, 02/18/2022, 09/26/2021, Additional history exists Influenza Vaccine (#1) 2024 , 02/18/2022, 02/23/2021, Additional history exists Pneumococcal vaccine 65+ Completed 017, 02/17/2016, 04/29/2014 Hepatitis C Screening Completed 07/31/2024 Procedures Procedure Name Priority Date/Time Associated Diagnosis Comments HEPATITIS PANEL, ACUTE Routine 07/31/2024 12:00 PM CDT High risk medication use TB TEST, QUANTIFERON GOLD Routine 07/30/2024 11:27 AM CDT SPECIMEN STATUS REPORT Routine 07/29/2024 11:25 AM CDT HIV 1/2 ANTIBODY PLUS P24 ANTIGEN Routine 07/29/2024 11:25 AM CDT Rash and other nonspecific skin eruption BLOOD MISC TO BROAD TOP Routine 07/15/2024 12 :00 PM INTERNAL AUDIT CONSULTANT SURGICAL PATHOLOGY Routine 07/15/2024 12 :00 AM INTERNAL AUDIT CONSULTANT from Last 3 Months Results * Hepatitis panel, acute Blood (07/31/2024 12:00 PM CDT) Hep A IgM Nonreactive Nonreactive Comment: Interpretive Data: If Hep A IgM Ab is reported as Equivocal, a new sample should be drawn in two weeks for testing. Current interpretive data was last revised on 19. Hep B core IgM Nonreactive Nonreactive [facility] Comment: Interpretive Data If HepB Core IgM Ab is reported as Equivocal, a new sample should be drawn in two weeks for testing. Current interpretive data was last revised on 19. Hep C Ab Nonreactive Nonreactive [facility] Comment: Interpretive Data Nonreactive: Antibodies to HCV [...] last revised on 2019. HepBsAg Nonreactive Nonreactive [facility] Blood 07/31/2024 12:0 0 PM CDT 07/31/2024 4:00 PM CDT Farhad Arriola MD LAB MICROBIOLOGY - GENERA L ORDERABLES Final Result [facility] [address] [place] [address] * TB test, quantiferon gold (07/30/2024 11:27 AM CDT) [facility] QuantiFERON Incubation Incubation performed. [facility] - 01 [...] 07/30/2024 11:2 7 AM CDT 07/30/2024 Narrative [facility] - 08/03/2024 3:09 PM CDT Performed at: [address] [place] [id number] Commercial Construction Project Manager: Brando Kang PhD, Phone: [phone] Farhad Arriola MD LAB BLOOD ORDERABLES Landy l Result [facility] - 01 * Specimen Status Report (07/29/2024 11:25 AM CDT) [facility] Specimen Status Report Comment [facility] - 01 [...] - 07/30/2024 8:12 AM CDT Performed at: [address] [place] [id number] Commercial Construction Project Manager: Brando Kang PhD, Phone: [phone] Farhad Arriola MD LAB BLOOD ORDERABLES Landy l Result Performing Organization Address [facility]/ZIP Co de Phone Number [facility] - * HIV 1/2 Antibody plus p24 Antigen Blood (07/29/2024 11:25 AM CDT) [facility] HIV 1/2 Ab + p24 Ag Non Reactive Non Reactive [facility] - 01 Comment: HIV-1/HIV-2 antibodies and HIV-1 p24 antigen were NOT detected. There is no laboratory evidence of HIV infection. HIV Negative Blood 07/29/2024 11:2 5 AM CDT 07/29/2024 Narrative [facility] - 07/30/2024 8:12 AM CDT Performed at: [address] [id number] Commercial Construction Project Manager: Brando Kang PhD, Phone: [phone] Farhad Arriola MD LAB MICROBIOLOGY - GENERA L ORDERABLES Final Result Performing Organization Address [facility]/ZIP Co de Phone Number [facility] - * (ABNORMAL) BLOOD MISC TO BROAD TOP (07/15/2024 12:00 PM INTERNAL AUDIT CONSULTANT) Test name, chem DSGAB,BHANU MOGLEIN 1 AND 3, SERUM(PEM PHIGUS) [facility] Misc See Footnote( A) [facility] Comment: Test Result Flag Unit RefValue Desmoglein [...] This test has been modified from the timber management assistant's instructions. Its performance characteristics were determined by [facility] in a manner consistent with CLIA requirements. This test has not been cleared or approved by the U.S. Food and Drug Administration. Test Performed by: [facility] [place] [address] Commercial Construction Project Manager: Tyler Blanco Ph.D.; CLIA# [id number] Blood 07/15/2024 12:0 0 PM INTERNAL AUDIT CONSULTANT 07/15/2024 12:56 PM INTERNAL AUDIT CONSULTANT Farhad Arriola MD LAB BLOOD ORDERABLES Landy trejo Result [facility] Department [place] [address] [facility] * Surgical pathology (07/15/2024 12:00 AM INTERNAL AUDIT CONSULTANT) Skin/Oral for IF (immunofluorescen ce) 07/15/2024 07/16/2024 9:37 AM INTERNAL AUDIT CONSULTANT Narrative 07/17/2024 2:18 PM INTERNAL AUDIT CONSULTANT EPIC results best viewed via link to PDF [facility], [address], [place] [address] [email or web address] Note to Patients: This report may contain [...] FINAL REPORT Patient Information: PATIENT NAME: DONTA GARCIA SEX: M : 1950 (Age: 73) Specimen Information: COLLECTED: 07/15/2024 RECEIVED: 07/16/2024 REPORTED: 07/17/2024 Submitting Physician Information: Farhad Arriola M.D. [facility] [address] [place] [address], DERMATOPATHOLOGY REPORT RESULTS DIAGNOSIS: A. SKIN, RIGHT [...] dh/dxv ICD-9 ZSD.1387 Clerical Data A; 1204, 24012, 97215, 63438, 51605 B; 33284 The characteristics of special, immunohistochemical, and immunofluorescence stains and in-situ hybridization tests performed by the [facility] were deemed acceptable in ongoing compliance quality performance analyst measures and in compliance with regulations drawn from the Clinical Laboratory Improvement Act tm3983 (CLIA '88). Control reactions for all stains performed were deemed adequate and appropriate by a pathologist prior to evaluation of patient tissue. Some diagnoses were rendered with the assistance of laboratory-developed tests utilizing analyte-specific reagents; the performance characteristic of these tests were determined by [facility] and are not cleared or approved by the US Food an Drug administration. Laboratory developed test may only be performed in a facility that is certified by the [facility] as a high-complexity laboratory under CLIA '88. These tests are used for clinical purposes and are not investigational. Farhad Arriola MD LAB PATHOLOGY ORDERABLES Final Result from Last 3 Months Insurance MEDICARE [facility] MEDICARE [facility] MEDICARE [facility] Care Teams Instrumental Teacher Relationship Specialty Start Date End Date Martin Tejeda MD PCP - General 03/09/17
--- OUTSIDE RECORDS SUMMARY | 2024-08-04 09:10 | XMS_ITS | Encounter Summary ---
Author Organization [facility] Address [address] [place] [address] Phone Care Team Providers Care Electrician Third Name Role Phone Martin Tejeda MD Primary Care Provider [phone] Encounter Details Date Type Department Care Team (Late st Contact Info) Description 07/28/2024 Results Follow-Up 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 Few things: 1. Call in: Prednisone 20mg, take 3 po qAM x 7 days, then take 2 po qAM x 7 days, then take 1 po every day until seen in clinic. Disp 49. 0 RF. 2. Cancel ROV for tomorrow and re-schedule for 3-4 weeks from now. 3. Needs labs: T-SPot, HIV, Acute Hepatitis Panel documented in this encounter Plan of Treatment Not on file documented as of this encounter Visit Diagnoses Not on filedocumented in this encounter Care Teams Electrician Third Relationship Specialty Start Date End Date Martin Tejeda MD PCP - General 03/09/17 documented as of this encounter
--- OUTSIDE RECORDS SUMMARY | 2024-08-04 09:10 | XMS_ITS | Clinical Summary ---
Author Organization [facility] Address [address] [place] [address] Phone Care Team Providers Care Dyer Helper Name Role Phone Martin Tejeda MD Primary Care Provider [phone] Allergies No known active allergies Medications atenoloL [...] Encounters Date Type Department Care Team Description 07/27/2024 External Device Data [facility] ABSTRACTION Provider, Abstract 07/14/2024 External Device Data [facility] ABSTRACTION Provider, Abstract 06/10/2024 External Device Data [facility] ABSTRACTION Provider, Abstract 06/09/2024 External Device Data [facility] ABSTRACTION Provider, Abstract 06/02/2024 External Device Data [facility] ABSTRACTION Provider, Abstract from Last 3 Months Family History Medical [...] CDT Gender Identity Male 07/03/2024 1:54 PM BOXCAR WEIGHER Sexual Orientation Not on file Last Filed Vital Signs Vital Sign Reading Time Taken Comments Blood Pressure 97/65 04/28/2024 10:04 AM BOXCAR WEIGHER Pulse 87 04/28/2024 10:04 AM BOXCAR WEIGHER Temperature 36.5 C (97.7 F) 04/28/2024 10:04 AM BOXCAR WEIGHER Respiratory Rate 14 04/28/2024 10:0 4 AM BOXCAR WEIGHER Oxygen Saturation 92% 04/28/2024 10: 04 AM BOXCAR WEIGHER Inhaled Oxygen Concentration - - Weight 70.7 kg (155 lb 12.8 oz) 024 10:04 AM BOXCAR WEIGHER Height 177.8 cm (5' 10 ) 11/11/2023 1:22 PM CDT Body Mass Index 22.35 11/11/2023 1:22 PM CDT Plan of Treatment Upcoming Encounters Date Type Department Care Team (Late st Contact Info) Description 08/14/2024 10:15 AM CDT Office Visit [facility] Oncology and Hematology - [place] [address] [facility] [address] [place] [address] Cash Chamberlain MD [address] [facility] [address] [place] [address] Health Maintenance Due Date Last Done Comments DTAP/TDAP/TD VACCINES (1 - Tdap) 12/08/1967 COLORECTAL SCREENING 1993 Colorectal Cancer Screening 1993 FIT-DNA Q 3 years 1993 FIT/FOBT Q 1 year 1993 Flex Sig/CT Colonography Q 5 years 1993 ZOSTER VACCINE (1 of 2) 1998 Abdominal Aortic Aneurysm (A AA) Screening 2013 PNEUMOCOCCAL VACCINE 50+ YEA RS (2 of 2 - PCV) 02/23/2018 02/23/2017, 04/29/2014 RSV VACCINE (60+ or ) (1 - 1-dose 75+ series) 12/08/2023 INFLUENZA VACCINE (#1) 2023 , 02/29/2020, 03/09/2019, Additional history exists Insurance MEDICARE PART A AND B [facility] MEDICARE PART A AND B [facility] Care Teams Dyer Helper Relationship Specialty Start Date End Date Martin Tejeda MD [address] [place] [address] PCP - General Internal Medicine 11/11/23
--- OUTSIDE RECORDS SUMMARY | 2024-08-04 09:10 | XMS_ITS | Encounter Summary ---
Author Organization [facility] Address [address] [place] [address] Phone Care Team Providers Care Water Jet Operator Name Role Phone Martin Tejeda MD Primary Care Provider [phone] Reason for Visit * Reason Onset Date Comments Med Management 07/31/2024 Encounter Details Date Type Department Care Team (Late st Contact Info) Description 07/31/2024 Telephone [facility] Dermatology [address] [facility] [address] [place] [address] Farhad Arriola MD [address] [address] Med Management Social History Tobacco Use Types Packs/Day Years Used Date Smoking Tobacco: Former Cigarettes Smokeless Tobacco: Former Sex and Gender Information Value Date Recorded Sex Assigned at Not on file 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 He told the pharmacist that he's using it QID and that the prescribed amount will not last 30 days. Pharmacy requesting a higher quantity Please resend if applicable documented in this encounter Plan of Treatment Not on file documented as of this encounter Visit Diagnoses Not on filedocumented in this encounter Care Teams Water Jet Operator Relationship Specialty Start Date End Date Martin Tejeda MD PCP - General 03/09/17 documented as of this encounter
--- OUTSIDE RECORDS SUMMARY | 2024-08-04 09:10 | XMS_ITS | CONTINUITY OF CARE DOCUMENT ---
Author Name marni, marni Address Unknown Organization [facility] Address [address] [place] [address] Phone [phone] Care Team Providers Care Sanitation Manager Name Role Phone Domenic SLATER, Wood Unavailable [phone] Martin Tejeda MD Unavailable Martin Tejeda MD Unavailable PROBLEMS Condition Status Date Provider Notes Sinus tachycardia completed - Wood Sheth MD Syncope active Wood Sheth MD Preoperative cardiovascular examination completed - Wood Sheth MD Pedal edema active Wood Sheth MD Atrial fib paroxysmal on XArelto active Wood Sheth MD SARS-associated coronavirus active Erum Villavicencio MD varicose veins active Wood Sheth MD Snoring completed - Wood Sheth MD History of left iliac thrombus active Billy Sheth MD Hyperthyroidism active Wood Sheth MD Hyponatremia active Wood Sheth MD COPD active Wood Sheth MD Hx of tobacco use active Wood Sheth MD Hx of alcoholism active Wood Sheth MD Abdominal aortic aneurysm - 3.7 cm on AAA scan 05/2022 active Wood Sheth MD Hyperlipidemia active Wood Sheth MD HTN--echo ef 60%, mild MR, 07/2021 active Wood Sheth MD ENCOUNTERS Date Type Provider Location Encounter Diag nosis - In-person encounter Office Visit Wood Sheth MD [facility] Pedal edema - In-person encounter Office Visit Wood Sheth MD [facility] - In-person encounter Office Visit Wood Sheth MD [facility] - In-person encounter Office Visit Wood Sehth MD [facility] Abdominal aortic aneurysm - 3.7 cm on AA A scan 05/2022Sinus tachycardiaSnoringAtrial fib paroxysmal on XArelto - In-person encounter Office Visit Wood Sheth MD [facility] HTN--echo ef 60%, mild MR, bdomi nal aortic aneurysm - 3.7 cm on AAA scan 05/2022 - In-person encounter Office Visit Erum Villavicencio MD [facility] SARS-associated coronavirus - In-person encounter Office Visit Wood Sheth MD [facility] - In-person encounter Office Visit Wood Sheth MD [facility] Abdominal aortic aneurysm - 3.7 cm on AA A scan 05/2022 - In-person encounter Office Visit Wood Sheth MD [facility] varicose veins - In-person encounter Office Visit Wood Sheth MD [facility] Preoperative cardiovascular examination - In-person encounter Office Visit Wood Sheth MD [facility] Abdominal aortic aneurysm - 3.7 cm on AA A scan 05/2022 - In-person encounter Office Visit Wood Sheth MD [facility] Abdominal aortic aneurysm - 3.7 cm on AA A scan 05/2022 - In-person encounter Office Visit Wood Sheth MD [facility] - In-person encounter Office Visit Wood Sheth MD [facility] HTN--echo ef 60%, mild MR, 07/2021HyperlipidemiaAbdominal aortic aneurysm - 3.7 cm on AAA scan 05/2022Hx of alcoholismHx of tobacco useCOPDHyponatremiaHyperthyroidismHistory of left iliac thrombusSyncope VITAL SIGNS Date Observation Value Provider Body Mass Index (Ratio) 25.08 kg/m2 Brody Sheth MD blood pressure, diastolic 70 mm[Hg] omas Poonam blood pressure, systolic 110 mm[Hg] [facility] Poonam height E&M 70 [in_i] Shorty Poonam weight E&M 174.8 [lb_av] [facility] Body Mass Index (Ratio) 24.53 kg/m2 Brody Sheth MD blood pressure, cuff size regular Shiraz et blood pressure, diastolic 86 mm[Hg] [facility], [facility] 130 mm[Hg] [facility] pulse rate 73 /min Tom respiratory rate E&M 12 /min [facility] oxygen saturation, oximetry 98 % [facility] weight E&M 171 [lb_av] [facility] y height E&M 70 [in_i] [facility] y Body Mass Index (Ratio) 23.82 kg/m2 Brody Sheth MD blood pressure, cuff size regular Ke rri Gruenenfeldlynda blood pressure, diastolic 84 mm[Hg] Ke rri Gruenenfelder blood pressure, systolic 150 mm[Hg] Marlen Montalvo Inhaled O2 3 L/min Parul harveyer oxygen saturation, oximetry 96 % Parul Connorsyonglynda respiratory rate E&M 14 /min Parul gelleryong pulse rate 77 /min Parul Murray [facility] weight E&M 166 [lb_av] Parul Murray [facility] height E&M 70 [in_i] Parul Murray [facility] Body Mass Index (Ratio) 24.10 kg/m2 Brody Sheth MD blood pressure, diastolic 85 mm[Hg] Marie nkLogmaykel blood pressure, systolic 123 mm[Hg] Orquidea og respiratory rate E&M 14 /min Gina Wi llia blood pressure, diastolic 85 mm[Hg] Brittany Byrd blood pressure, systolic 123 mm[Hg] Any tres Byrd blood pressure, cuff size large An kristopher Byrd Inhaled O2 3 L/min Ginatres Byrd oxygen saturation, oximetry 98 % Gina Byrd pulse rate 70 /min Gina Byrd weight E&M 168 [lb_av] Gina Carson height E&M 70 [in_i] Ginatres Byrd Body Mass Index (Ratio) 24.25 kg/m2 Brody Sheth MD blood pressure, diastolic 75 mm[Hg] Sa ra Capone blood pressure, systolic 126 mm[Hg] Maddie a Capone oxygen saturation, oximetry 93 % Mely Capone respiratory rate E&M 17 /min Mely Si ms pulse rate 80 /min Mely Capone weight E&M 169 [lb_av] Mely Capone blood pressure, cuff size regular Sa ra Capone height E&M 70 [in_i] Mely Capone Body Mass Index (Ratio) 24.82 kg/m2 Too en Johnson blood pressure, diastolic 90 mm[Hg] Li nkLogic blood pressure, systolic 140 mm[Hg] Orquidea kLogic blood pressure, cuff size large Ke rri Gruenenfelder blood pressure, diastolic 90 mm[Hg] Ke rri Gruenenfelder blood pressure, systolic 140 mm[Hg] Ker ri Gruenenfelder oxygen saturation, oximetry 90 % Parul Gruenenfelder respiratory rate E&M 16 /min Parul G ruenenfelder pulse rate 72 /min Parul Gruenenfe er weight E&M 173 [lb_av] Parul Grsunge er height E&M 70 [in_i] Parul Janaynenfe [facility] Body Mass Index (Ratio) 24.25 kg/m2 Brody Sheth MD blood pressure, cuff size regular Ke rri Gruenenfeld blood pressure, diastolic 70 mm[Hg] Ke rri Gruenenfelder blood pressure, systolic 120 mm[Hg] Ker ri Antwanuenenfeldlynda oxygen saturation, oximetry 95 % Parul Gruenenfyousuf respiratory rate E&M 16 /min Parul G ruenenfelder pulse rate 74 /min Parul Gruenenfe er weight E&M 169 [lb_av] Parul Gruenenfdelia [facility] height E&M 70 [in_i] Parul Gruenenfe [facility] Body Mass Index (Ratio) 23.39 kg/m2 Brody Sheth MD blood pressure, diastolic 82 mm[Hg] To queta Weston blood pressure, systolic 117 mm[Hg] Glenn Weston oxygen saturation, oximetry 93 % Tons Weston pulse rate 74 /min Tons Weston weight E&M 163 [lb_av] Tonsha Weston height E&M 70 [in_i] [facility] Weston Body Mass Index (Ratio) 22.81 kg/m2 Brody Sheth MD blood pressure, cuff size regular Cr ystal Carson blood pressure, diastolic 90 mm[Hg] Cr yschet Carson blood pressure, systolic 121 mm[Hg] Cry stal Carson oxygen saturation, oximetry 94 % Vicki Byrd respiratory rate E&M 17 /min Vicki Byrd pulse rate 75 /min Vicki Mello s weight E&M 159 [lb_av] Vicki Mello s height E&M 70 [in_i] Vicki Mello s Body Mass Index (Ratio) 22.96 kg/m2 Brody Sheth MD blood pressure, diastolic 70 mm[Hg] Da paul Austen blood pressure, systolic 102 mm[Hg] Dac ia Austen oxygen saturation, oximetry 89 % Fely Austen pulse rate 84 /min Fely Austen respiratory rate E&M 16 /min Efly V oss weight E&M 160 [lb_av] Fely Austen height E&M 70 [in_i] Fely Austen Body Mass Index (Ratio) 22.24 kg/m2 Brody Sheth MD blood pressure, cuff size regular Cy quiana Jolley blood pressure, diastolic 70 mm[Hg] Cy quiana Jolley blood pressure, systolic 118 mm[Hg] Hina rosi Jolley oxygen saturation, oximetry 96 % Unique Jolley respiratory rate E&M 18 /min Unique Jolley pulse rate 75 /min Unique trejo weight E&M 155 [lb_av] Unique Petty l height E&M 70 [in_i] Unique Petty l Body Mass Index (Ratio) 22.24 kg/m2 Brody Sheth MD blood pressure, diastolic 80 mm[Hg] Ki analy Henderson blood pressure, systolic 118 mm[Hg] Laura victor Henderson oxygen saturation, oximetry 93 % [facility] E&M 16 /min [facility] pulse rate 83 /min [facility] E&M 155 [lb_av] [facility] height E&M 70 [in_i] [facility] Body Mass Index (Ratio) 22.09 kg/m2 Brody Sheth MD blood pressure, diastolic 78 mm[Hg] Elias Olivares blood pressure, systolic 118 mm[Hg] [facility] live [facility] pulse rate 76 /min [facility] oxygen saturation, oximetry 97 % [facility] respiratory rate E&M 16 /min [facility] weight E&M 154 [lb_av] [facility] height E&M 70 [in_i] [facility] Body Mass Index (Ratio) 21.52 kg/m2 Brody Sheth MD blood pressure, diastolic 80 mm[Hg] Brent isty [place] blood pressure, systolic 114 mm[Hg] Mirella Guerrero blood pressure, cuff size regular Brent israndolph Greenbergby oxygen saturation, oximetry 93 % Fabby Cesar respiratory rate E&M 17 /min Fabby [place] pulse rate 80 /min Fabby Cesar blood pressure, resting Yes Eric Guerrero height E&M 70 [in_i] Fabyb [place] weight E&M 150 [lb_av] Fabby Guerrero ALLERGIES No Known Drug Allergies RESULTS Date Observation Value Provider Reference Range Interpretation Location 2 eGFR if 111 mL/min/{1.73 _m2} [facility] >59 2 eGFR if not 96 mL/min/{1.73 _m2} [facility] >59 2 creatinine, serum 0.72 mg/dL [facility] 0.76-1.27 Low 5 hepatitis B core IgG, serum Negative [facility] Negative 5 HBsAg - Confirmation Negative [facility] Negative 5 hepatitis A antibody, IgM Negative [facility] Negative 8 calcium, serum 9.4 mg/dL [facility] 8.6-10.2 8 carbon dioxide, venous blood 27 mmol/L [facility] 18-29 8 chloride, serum 97 mmol/L [facility] 96-106 8 potassium, serum 4.7 mmol/L [facility] 3.5-5.2 8 sodium, serum 139 mmol/L [facility] 728-230 7623/01/1 8 urea nitrogen/creatini ne ratio, serum 16 [facility] 10-24 8 eGFR if not 79 mL/min/{1.73 _m2} [facility] >59 8 creatinine, serum 0.98 mg/dL [facility] 0.76-1.27 8 urea nitrogen, blood 16 mg/dL [facility] 8-27 8 blood glucose, random 99 mg/dL [facility] 65-99 HISTORY OF MEDICATION USE Medication Status Instructions Dates Provider Indications Com ments Xarelto 20 mg tablet active Take 1 tablet by mouth once daily Fredrick Cottrell albuterol sulfate 2.5 mg/3 mL (0.083 %) solution for nebulization active USE 1 VIAL IN NEBULIZER THREE TIMES DAILY NEEDED Fredrick Cottrell amlodipine 10 mg tablet active Take 1 tablet by mouth once daily Shorty Levin amlodipine 5 mg tablet completed - Maggie Smallwood atenolol 100 mg tablet active Wood Sheth MD pantoprazole 40 mg tablet,delayed release (DR/EC) active Ginatres Byrd ipratropium-albu terol 0.5 mg-3 mg(2.5 mg base)/3 mL solution for nebulization active USE 1 AMPULE IN NEBULIZER 4 TIMES DAILY Ginatres Byrd Xarelto 20 mg tablet completed Take 1 tablet by mouth once a day - Fredrick Cottrell 05/02 samples given, qty 2 bottles simvastatin 20 mg tablet active Fredrick Cottrell Xarelto 20 mg tablet completed Take 1 tablet by mouth once a day - Alysha Castellanos amlodipine 5 mg tablet completed Take 1 tablet by mouth once daily - Wood Sheth MD AMLODIPINE BESYLATE 10 MG TABS completed TAKE ONE TABLET DAILY IN THE EVENING - Wood Sheth MD amlodipine 5 mg tablet completed one tab by mouth daily - Wood Sheth MD Symbicort 80-4.5 mcg/actuation HFA aerosol inhaler completed 1-2 puff once a day as needed - Gina Franziva with HandiHaler 18 mcg capsule, w/inhalation device active Inhale 1 capsule once a day Alysha Castellanos PULMICORT FLEXHALER 180 MCG/ACT INHALATION AEROSOL POWDER BREATH ACTIVATED completed Inhale 3 puffs twice daily - Wilder Henderson ANORO ELLIPTA 62.5-25 MCG/INH INHALATION AEROSOL POWDER BREATH ACTIVATED completed Inhale 1 puff daily - Wilder Henderson Ventolin HFA 90 mcg/actuation HFA aerosol inhaler active as needed Alysha Castellanos Daily Multivitamin 200-100-500 mcg capsule active Take 1 tablet by mouth once a day Fabby Guerrero SIMVASTATIN 20MG TABLET completed Take 1 tablet by mouth once a day - Fredrick Cottrell atenolol 100 mg tablet completed 1 tablet every morning - Wood Sheth MD AMLODIPINE BESYLATE 5 MG ORAL TABLET completed - Wood Sheth MD Xarelto 20 mg tablet completed 1 tablet once a day - Wood Sheth MD SOCIAL HISTORY Date Observation Value Provider social history reviewed E&M revi ewed - no changes required Fredrick Cottrell social history E&M S moking History: Anjali wilson is a former smoker. Wood Sheth MD social history reviewed E&M revi ewed - no changes required Wood Sheth MD number of years as a smoker 41 a Parul Montalvo smoking history, tot al pack/day 3 pks qd Parul Connorsyousuf cigarette use yes Parul Connors [facility] smoking status Former sm[facility] social [facility] E&M S moking History: Anjali wilson is a former smoker. Wood Sheth MD social history reviewed E&M revi ewed - no changes required Wood Sheth MD number of years as a smoker 41 a Gina Carson smoking history, tot al pack/day 3 pks qd Gina Carson cigarette use yes Gina Byrd smoking status Former smoker Ginatres yuan social history reviewed E&M revi ewed - no changes required Fredrick Cottrell number of grandchildren Erum Villavicencio MD social history reviewed E&M revi ewed - no changes required Erum Villavicencio MD social history E&M S moking History: Anjali wilson is a former smoker. Erum Villavicencio MD number of years as a smoker 41 a Parul Katia smoking history, tot al pack/day 3 pks qd Parul Montalvo cigarette use yes Parul Connors elder smoking status Former smoker Parul gonzalez social history E&M S moking History: Anjali wilson is a former smoker. Young Radha social history reviewed E&M revi ewed - no changes required Young Garcia number of years as a smoker 41 a Parul Montalvo smoking history, tot al pack/day 3 pks qd Parul Montalvo cigarette use yes Parul to smoking status Former smoker Parul gonzalez social history E&M S moking History: Anjali wilson is a former smoker. Wood Sheth MD social history reviewed E&M revi ewed - no changes required Wood Sheth MD number of years as a smoker 41 a Tonsha Weston smoking history, tot al pack/day 3 pks qd Tonsha Weston [facility] Tons Weston social history reviewed E&M revi ewed - no changes required Wood Sheth MD social history E&M S moking History: Anjali wilson is a former smoker. Wood Sheth MD cigarette use yes Vicki Salter ms smoking status Former smoker Vicki Cast heladiond social history E&M S moking History: Anjali wilson is a former smoker. Wood Sheth MD alcohol counseling yes Wood medina MD In the past 3 months , have you felt guilty or bad about using drugs? (CAGE substance use question #3) Melinda Sheth MD In the past 3 months , has anyone annoyed you by telling you to cut down or stop using drugs? (CAGE substance use question #2) Melinda Sheth MD In the past 3 months , have you felt you should cut down or stop using drugs?(CAGE substance use question #1) N Wood Sheth MD alcohol use, average drinks per day 4+ Wood Sheth MD alcohol use, type beer Wood wilson MD alcohol use yes Wood Sheth MD number of years as a smoker 41 a Wood Sheth MD smoking history, tot al pack/day 3 pks qd Wood Sehth MD cigarette use yes Wood Kelly smoking status Former smoker Wood Sheth MD social history reviewed E&M revi ewed - no changes required Wood Sheth MD social history E&M S moking History: Anjali wilson is a former smoker. Wood Sheth MD social history reviewed E&M revi ewed - no changes required Wood Sheth MD alcohol counseling yes Unique gillespie In the past 3 months , have you felt guilty or bad about using drugs? (CAGE substance use question #3) N Unique Jolley In the past 3 months , has anyone annoyed you by telling you to cut down or stop using drugs? (CAGE substance use question #2) N Unique Jolley In the past 3 months , have you felt you should cut down or stop using drugs?(CAGE substance use question #1) N Unique Jolley alcohol use, average drinks per day 4+ Unique Jolley alcohol use, type beer Unique mena alcohol use yes Unique trejo number of years as a smoker 41 a Unique Jolley smoking history, tot al pack/day 3 pks qd Unique Jolley cigarette use yes Unique chirinos smoking status Former smoker Unique Jose dalton social history reviewed E&M revi ewed - no changes required Wood Sheth MD alcohol counseling yes Wilder jones In the past 3 months , have you felt guilty or bad about using drugs? (CAGE substance use question #3) N [facility] In the past 3 months , has anyone annoyed you by telling you to cut down or stop using drugs? (CAGE substance use question #2) N [facility] In the past 3 months , have you felt you should cut down or stop using drugs?(CAGE substance use question #1) N [facility] alcohol use, average drinks per day 4+ [facility] alcohol use, type beer Wilder In gram alcohol use yes [facility] number of years as a smoker 41 a [facility] smoking history, tot al pack/day 3 pks qd [facility] cigarette use yes [facility] smoking status Former smoker [facility] social history reviewed E&M revi ewed - no changes required Wood Sheth MD social history E&M S moking History: Anjali wilson is a former smoker. Wood Sheth MD smoking status Former smoker Wood Sheth MD number of grandchildren Wood Sheth MD T lilian Sheth MD alcohol counseling yes Wood medina MD In the past 3 months , have you felt guilty or bad about using drugs? (CAGE substance use question #3) N Wood Sheth MD In the past 3 months , has anyone annoyed you by telling you to cut down or stop using drugs? (CAGE substance use question #2) N Wood Sheth MD In the past 3 months , have you felt you should cut down or stop using drugs?(CAGE substance use question #1) Melinda Sheth MD alcohol use, average drinks per day 4+ Wood Sheth MD alcohol use, type beer Wood wilson MD alcohol use yes Wood Sheth MD social history reviewed E&M revi ewed - no changes required Fabby Guerrero smoking history, tot al pack/day 3 pks qd Fabby Cesar number of years as a smoker 41 a Fabby Greenbergby cigarette use yes Fabby Greenbergby smoking status Former smoker Fabby Guerrero FAMILY HISTORY Family Member Condition Mother Family History of Marilu ng Cancer: INSURANCE PROVIDERS Payer name Policy type / Coverage type [place] red green party ID [id number] [place] MEDICARE Medicare [id number] ADVANCE DIRECTIVES Name Date DISCUSSED - NO DECISION MADE TREATMENT PLAN Date Name Performer [id number],SFredrick i [id number],SFredrick i [id number],SFredrick i [id number],SFredrick i [id number],SFredrick i [id number],S, Wood Sheth MD [id number],BWood MD [id number],B, Wood Sheth MD [id number],B, Wood Sheth MD [id number],BWood MD [id number],B, Wood Sheth MD [id number],B, Wood Sheth MD [id number],SWood MD [id number],BWood MD [id number],W, Wood Sheth MD [id number],SWood MD [id number],S, Fredrick Pfeifferza i [id number],S, Fredrick Manuelmedza i [id number],B, Fredrick Manuelmedza i [id number],S, Fredrick Manuelmedza i [id number],S, Fredrick Manuelmedza i [id number],C,B Ps at home are well controlled. H is updated medication list for this problem includes: Atenolol 100 Mg Tablet (Atenolol) ..... 1 tablet every morning Amlodipine 5 Mg Tablet (Amlodipine) ..... Take 1 tablet by mouth once daily BP today: 140/90 P rior BP: 120/70 (06/14/2020) Labs Reviewed: C reat: 0.72 (09/18/2017) Sommer Johnson [id number],[place] melinda Villavicencio MD [id number],C, H is updated medication list for this problem includes: Atenolol 100 Mg Tablet (Atenolol) ..... 1 tablet every morning Amlodipine 5 Mg Tablet (Amlodipine) ..... Take 1 tablet by mouth once daily BP today: 140/90 P rior BP: 120/70 (06/14/2020) Labs Reviewed: C reat: 0.72 (09/18/2017) Erum Villavicencio MD [id number],S,Moderna vacci nated x3 Erum Villavicencio MD [id number],S,P rior CT scan M ild aneurysma.1 dilatation of the thoracoabdominal note, slightly i ncreased in diameter versus CT scan from September 2016. Additionally, there is a c hronic aortic dissection at the level of the thoracoabdominal junction. U S today - C ONCLUSIONS: 1 . Abdominal aorta aneurysm of the mid aorta measuring 3.7 cm in its maximal diameter. 2. The proximal abdominal aorta is ectatic. 3 . Technically diffucult study. The patient was not NPO for the exam. Overlying bowel gas artifact. E lectronically Signed By: Anna Boudreaux MD 2 09:18:20 CASTING ASSISTANT C C: Wood Sheth MD, [facility] Erum Villavicencio MD [id number],S,N o recent PFTs.Needs to have PFTs with hx of emphysema Erum Villavicencio MD Cardiology:stop norvas Shorty Chaidez eatty Cardiology: H is updated medication list for this problem includes: Simvastatin 20 Mg Tablet (Simvastatin) Shorty Poonam Cardiology:on AC wit h xarelto Shorty Poonam Cardiology Fredrick Ahmedzai Cardiology Fredrick Ahmedzai Cardiology Fredrick Ahmedzai Cardiology Fredrick Ahmedzai Cardiology Fredrick Ahmedzai Cardiology Wood Sheth MD Cardiology Wood Sheth MD Cardiology Wood Sheth MD Cardiology Wood Sheth MD Cardiology Wood Sheth MD Cardiology Wood Sheth MD Cardiology Wood Sheth MD Cardiology Wood Sheth MD Cardiology Wood Sheth MD Cardiology Wood Sheth MD Cardiology Wood Sheth MD Cardiology Fredrick Ahmedzai Cardiology Fredrick Ahmedzai Cardiology Fredrick Ahmedzai Cardiology Fredrick Ahmedzai Cardiology Fredrick Ahmedzai Cardiology:BPs at [facility] are well controlled. H is updated medication list for this problem includes: Atenolol 100 Mg Tablet (Atenolol) ..... 1 tablet every morning Amlodipine 5 Mg Tablet (Amlodipine) ..... Take 1 tablet by mouth once daily BP today: 140/90 P rior BP: 120/70 (06/14/2020) Labs Reviewed: C reat: 0.72 (09/18/2017) Sommer Johnson Cardiology:On xarelt o Erum Villavicencio MD Cardiology: H is updated medication list for this problem includes: Atenolol 100 Mg Tablet (Atenolol) ..... 1 tablet every morning Amlodipine 5 Mg Tablet (Amlodipine) ..... Take 1 tablet by mouth once daily BP today: 140/90 P rior BP: 120/70 (06/14/2020) Labs Reviewed: C reat: 0.72 (09/18/2017) Erum Villavicencio MD Cardiology:Moderna vaccinated x3 Erum Villavicencio MD Cardiology:Prior CT scan M ild aneurysma.1 dilatation of the thoracoabdominal note, slightly i ncreased in diameter versus CT scan from September 2016. Additionally, there is a c hronic aortic dissection at the level of the thoracoabdominal junction. U S today - C ONCLUSIONS: 1 . Abdominal aorta aneurysm of the mid aorta measuring 3.7 cm in its maximal diameter. 2 . The proximal abdominal aorta is ectatic. 3 . Technically diffucult study. The patient was not NPO for the exam. Overlying bowel gas artifact. E lectronically Signed By: Anna Boudreaux MD 09:18:20 CASTING ASSISTANT C C: Wood Sheth MD, FACC Erum Villavicencio MD Cardiology:No recent PFTs.Needs to have PFTs with hx of emphysema Erum Villavicencio MD Cardiology Follow up Young Garcia Cardiology Follow up Young Garcia Cardiology Follow up Young Garcia Cardiology Follow up Young Garcia Cardiology Wood Sheth MD Cardiology Wood Sheth MD Cardiology Wood Sheth MD Cardiology Wood Sheth MD Cardiology Wood Sheth MD Cardiology Wood Sheth MD Cardiology Wood Sheth MD Cardiology: C ontinue on Xarelto 20mg once daily. CT scan of abdomen with contrast shows AAA that is 3.7cm with thrombus filling the posterior 50% of the aneurysm. CheckAAA ultrasound in one year to follow progression. If the aneurysm is increased in size, will refer to vascular surgery for possible EVAR. Continue atenolol and amlodipine, and statin. Wood Sheth MD Cardiology Wood Sheth MD Cardiology Wood Sheth MD Cardiology Wood Sheth MD Cardiology follow up Wood lovelace MD Cardiology follow up : C ontinue on Xarelto 20mg once daily. CT scan of abdomen with contrast shows AAA that is 3.7cm with thrombus filling the posterior 50% of the aneurysm. CheckAAA ultrasound in one year to follow progression. If the aneurysm is increased in size, will refer to vascular surgery for possible EVAR. Continue atenolol and amlodipine, and statin. Wood Sheth MD Cardiology follow up Wood lovelace MD Cardiology follow up Wood lovelace MD Cardiology follow up :Pt is low-risk from a cardiovascular standpoint for upcoming orthopedic surgery. Wood Sheth MD Cardiology follow up : B P today: 118/70 P rior BP: 118/80 (10/11/2017) Wood Sheth MD Cardiology follow up Wood lovelace MD Cardiology Wood Sheth MD Cardiology Wood Sheth MD Cardiology Wood Sheth MD Cardiology: C ontinue on Xarelto 20mg once daily. CT scan of abdomen with contrast shows AAA that is 3.7cm with thrombus filling the posterior 50% of the aneurysm. CheckAAA ultrasound in one year to follow progression. If the aneurysm is increased in size, will refer to vascular surgery for possible EVAR. Continue atenolol and amlodipine, and statin. Wood Sheth MD Cardiology: H is updated medication list for this problem includes: Simvastatin Tablet (Simvastatin tabs) ..... Take one tabelt by mouth once daily Wood Sheth MD Cardiology: H is updated medication list for this problem includes: Atenolol 100 Mg Oral Tablet (Atenolol) ..... One tab. daily in the morning Amlodipine Besylate 10 Mg Oral Tablet (Amlodipine besylate) ..... Take tablet by mouth once daily in the evening. BP today: 118/78 P rior BP: 114/80 (03/29/2017) Labs Reviewed: C reat: 0.98 (06/06/2017) Wood Sheth MD Cardiology: C ontinue on Xarelto 20mg once daily. CT scan of abdomen with contrast shows AAA that is 3.7cm with thrombus filling the posterior 50% of the aneurysm. Check CT in 3 months to follow progression. If the aneurysm is increased in size, will refer to vascular surgery for possible EVAR. Continue atenolol and amlodipine, and statin. Wood Sheth MD Cardiology:Reports e pisode of syncope a few months ago. With risk factors of previous smoking history as well as existing vascular disease, will check carotid doppler. Wood Sheth MD Cardiology:Will check home sleep study. Wood Sheth MD Cardiology:Seems to be higher in the evening. Recommended he take atenolol in the morning and amlodipine in the evening. B P today: 114/80 Wood Sheth MD Cardiology:Continue on Xarelto 20mg once daily. Check CT scan of abdomen with contrast in 3 months to follow progression. If the aneurysm is increased in size, will refer to vascular surgery for possible EVAR. Continue atenolol and amlodipine, and statin. Wood Sheth MD Date Name Aorta Duplex Ultraso und CT Angio Chest (Aort a) CT Angio, abdomen an d pelvis Complete Echo DLCO - 92082 FRC - 14850 FVC - 48061 Aorta Duplex Ultraso und Aorta Duplex Ultraso und Aorta Duplex Ultraso und Creatinine, Serum CT Angio, abdomen HEPATITIS PANEL BASIC METABOLIC PANE L W/EGFR Carotid Duplex Bilat eral Sleep Study Home BASIC METABOLIC PANE L W/EGFR CT Angio, abdomen STR - Adenosine HISTORY OF PROCEDURES Procedure Date Procedure Name Provider Procedure Notes S tatus Complex e/m visit add on Wood Sheth MD completed EKG Wood Sheth MD completed EKG Erum Villavicencio MD completed EKG Wood Sheth MD completed Schedule Followup Wood Sheth MD in 6 mo co mpleted EKG Wood Sheth MD completed SNOMED-CT: [id number] Current Medications Documented Wood Sheth MD completed Stress EKG Erum Villavicencio MD completed Regadenoson, 4 units Erum lackey MD completed Cardiolite, 2 units Erum pillai MD completed SPECT Images Erum Villavicencio MD completed EKG Wood Sheth MD completed SNOMED-CT: [id number] Current Medications Documented Wood Sheth MD completed
--- OUTSIDE RECORDS SUMMARY | 2024-08-04 09:10 | XMS_ITS | Clinical Summary ---
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 Press Operator Molded Goods Name Role Phone None, Provider MD Primary Care Provider Unavaila ble Allergies No known active allergies Encounters Date Type Department Care Team Description 07/08/2024 7:38 PM CHIP TUNER - 07/08/2024 11:59 PM CHIP TUNER Hospital Encounter [facility] [place] [address] Jermaine Burns FNP Discharge Disposition: Home or Self Care (Routine Discharge) 07/08/2024 [place] [address] Jermaine Burns FNP 06/29/2024 1:40 PM CHIP TUNER - 06/29/2024 6:49 PM CHIP TUNER Emergency [facility] [place] [address] Juan R Chino MD Throat Problem Discharge Disposition: Home or Self Care (Routine Discharge) 06/29/2024 Travel from Last 3 Months Social History Tobacco Use Types Packs/Day Years Used Date Smoking Tobacco: Never Assessed Sex and Gender Information Value Date Recorded Sex Assigned at Male 06/29/2024 12:54 PM CHIP TUNER Legal Sex Male 12:47 PM CHIP TUNER Gender Identity Not on file Sexual Orientation Not on file Last Filed Vital Signs Vital Sign Reading Time Taken Comments Blood Pressure 110/77 06/29/2024 3:57 PM CHIP TUNER Pulse 94 06/29/2024 6:48 PM CHIP TUNER Temperature 36.1 C (97 F) 06/29/2024 1:20 PM CHIP TUNER Respiratory Rate 18 06/29/2024 1:20 PM CHIP TUNER Oxygen Saturation 95% 06/29/2024 6:48 PM CHIP TUNER Inhaled Oxygen Concentration - - Weight 68 kg (150 lb) 06/29/2024 1:20 PM CHIP TUNER Height 177.8 cm (5' 10 ) 06/29/2024 1:20 PM CHIP TUNER Body Mass Index 21.52 06/29/2024 1:20 PM CHIP TUNER Plan of Treatment Health Maintenance Due Date [...] Procedure Name Priority Date/Time Associated Diagnosis Comments CULTURE, FUNGUS W/ STAIN Routine 07/08/2024 4:05 PM CHIP TUNER Candidiasis of mouth CULTURE, ANAEROBIC Routine 07/08/2024 4: 05 PM CHIP TUNER Candidiasis of mouth CULTURE, WOUND, W/GRAM STAIN Routine 07/08/2024 4:05 PM CHIP TUNER Candidiasis of mouth LACTIC ACID W REFLEX (SEPSIS) TIMED 06/29/2024 4:05 PM CHIP TUNER LACTIC ACID W REFLEX (SEPSIS) STAT 06/29/2024 1:54 PM CHIP TUNER COMPREHENSIVE METABOLIC PANEL STAT 06/29/2024 1:54 PM CHIP TUNER CBC W/DIFF AUTOMATED STAT 06/29/2024 1:54 PM CHIP TUNER from Last 3 Months Results * CULTURE, WOUND, W/GRAM STAIN (07/08/2024 4:05 PM CHIP TUNER) SPEC DESCRIPTION MOUTH 07/08/2024 7:42 PM CHIP TUNER [facility] SPECIAL REQUESTS NO SPECIAL REQUEST 07/08/2024 7:42 PM CHIP TUNER [facility] GRAM STAIN RESULT NO WHITE BLOOD CELLS SEEN 07/09/2024 7:32 AM CHIP TUNER [facility] GRAM STAIN RESULT MODERATE EPITHELIAL CELLS SEEN 07/09/2024 7:32 AM CHIP TUNER [facility] GRAM STAIN RESULT MODERATE GRAM NEGATIVE RODS 07/09/2024 7:32 AM CHIP TUNER [facility] GRAM STAIN RESULT RARE GRAM POSITIVE COCCI 07/09/2024 7:32 AM CHIP TUNER [facility] GRAM STAIN RESULT RARE GRAM POSITIVE RODS 07/09/2024 7:32 AM CHIP TUNER [facility] CULTURE RESULT MODERATE GROWTH OF NORMAL YE PRESENT 07/10/2024 9:44 AM CHIP TUNER [facility] ORAL CAVITY SPECIMEN / Unknown 07/08/2024 4:05 PM CHIP TUNER 07/08/2024 7:43 PM CHIP TUNER Jermaine Burns SAND CONDITIONER MICROBIOLOGY - GENERAL ORDERABL ES Final Result [facility] [address] [place] [address], [place] [phone] * (ABNORMAL) CULTURE ANAEROBIC (07/08/2024 4:05 PM CHIP TUNER) SPEC DESCRIPTION MOUTH 07/08/2024 7:42 PM CHIP TUNER [facility] SPECIAL REQUESTS NO SPECIAL REQUEST 07/08/2024 7:42 PM [facility] GRAM STAIN RESULT NO WHITE BLOOD CELLS SEEN 07/09/2024 7:33 AM [facility] GRAM STAIN RESULT MODERATE EPITHELIAL CELLS SEEN 07/09/2024 7:33 AM [facility] GRAM STAIN RESULT MODERATE GRAM NEGATIVE RODS 07/09/2024 7:33 AM [facility] GRAM STAIN RESULT RARE GRAM POSITIVE COCCI 07/09/2024 7:33 AM [facility] GRAM STAIN RESULT RARE GRAM POSITIVE RODS 07/09/2024 7:33 AM [facility] CULTURE RESULT LIGHT GROWTH OF PREVOTELLA MELANINOGENICUS BETA LACTAMASE POSITIVE SUSCEPTIBILTY NOT ROUTINELY PERFORMED. SAVING ISOLATE FOR 5 DAYS. CONTACT MICROBIOLOGY DEPARTMENT IF FURTHER WORKUP IS INDICATED. (A) 07/12/2024 12:22 PM CHIP TUNER [facility] ORAL CAVITY SPECIMEN / Unknown 07/08/2024 4:05 PM CHIP TUNER 07/08/2024 7:44 PM CHIP TUNER Jermaine Burns SAND CONDITIONER MICROBIOLOGY - GENERAL ORDERABL ES Final Result Performing Organization Address City/[facility] Co de Phone Number [facility] [address] [place] [address], [place] [phone] * LACTIC ACID W REFLEX (SEPSIS) (06/29/2024 4:05 PM CHIP TUNER) Only the most recent of2 resultswithin the time period is included. LACTIC ACID VENOUS 2.0 0.4 - 2.0 MMOL/L 06/29/2024 5:13 PM CHIP TUNER [facility] 06/29/2024 4:05 PM CHIP TUNER [facility] Final Resul t [facility] [address] [place] [address], * (ABNORMAL) COMPREHENSIVE METABOLIC PANEL (06/29/2024 1:54 PM CHIP TUNER) GLUCOSE 111(H) 70 - 99 MG/DL 06/29/2024 2:38 PM CHIP TUNER [facility] BUN 15 7 - 18 MG/DL 06/29/2024 2:38 PM [facility] CREATININE S/P/B 0.71 0.7 - 1.3 MG/DL 06/29/2024 2:38 PM [facility] SODIUM S/P/B 136 136 - 145 MMOL/L 06/29/2024 2:38 PM [facility] POTASSIUM S/P/B 4.7 3.5 - 5.1 MMOL/L 06/29/2024 2:38 PM [facility] Comment:SLIGHT HEMOLYSIS, RE SULT MAY BE AFFECTED. CHLORIDE S/P/B 97 97 - 115 MMOL/L 06/29/2024 2:38 PM [facility] CO2 31.3 21 - 32 MMOL/L 06/29/2024 2:38 PM [facility] CALCIUM S/P/B 9.2 8.5 - 10.1 MG/DL 06/29/2024 2:38 PM [facility] BILIRUBIN TOTAL S/P/B 0.6 0.2 - 1.2 MG/DL 06/29/2024 2:38 PM [facility] Comment: THIS ASSAY IS NOT RECOMMENDED FOR PATIENTS UNDERGOING TREATMENT WITH ELTROMBOPAG DUE TO THE POTENTIAL FOR FALSELY ELEVATED RESULTS. TOTAL PROTEIN S/P/B 7.0 6.4 - 8.2 G/DL 06/29/2024 2:38 PM [facility] ALBUMIN S/P/B 2.5(L) 3.4 - 5.0 G/DL 06/29/2024 2:38 PM CHIP TUNER [facility] AST 48(H) 15 - 37 U/L 06/29/2024 2:38 PM CHIP TUNER [facility] Comment:SLIGHT HEMOLYSIS, RE SULT MAY BE AFFECTED. ALT 29 16 - 60 U/L 06/29/2024 2:38 PM CHIP TUNER [facility] ALKALINE PHOSPHATASE S/P/B 85 50 - 136 U/L 06/29/2024 2:38 PM CHIP TUNER [facility] ANION GAP 7.7 2 - 10 MMOL/L 06/29/2024 2:38 PM CHIP TUNER [facility] BUN CREATININE RATIO 21.0 6 - 26 06/29/2024 2:38 PM [facility] A/G RATIO 0.6(L) 1.0 - 2.0 RATIO 06/29/2024 2:38 PM [facility] GFR ESTIMATE >90 >90 ML/MIN/1.7 3 M2 06/29/2024 2:38 PM [facility] Comment: NOTE: eGFR is not calculated for patients <18 years of age or gender unknown. This is an estimated GFR calculation using the new CKD EPI creatinine equation without race and so does not require a correction factor for race. This estimated GFR should not be used for calculating drug doses. 06/29/2024 1:54 PM CHIP TUNER us [facility] Final Resul t [facility] [address] [place] [address], [place] [phone] * (ABNORMAL) CBC W/DIFF AUTOMATED (06/29/2024 1:54 PM CHIP TUNER) WBC 10.24 4.5 - 11.0 x10'3/uL 06/29/2024 2:15 PM [facility] RBC 4.93 4.70 - 6.10 x10'6/uL 06/29/2024 2:15 PM [facility] HGB 15.5 14.0 - 18.0 G/DL 06/29/2024 2:15 PM [facility] HCT 48.1 43.0 - 54.0 % 06/29/2024 2:15 PM [facility] MCV 97.6(H) 80.0 - 94.0 FL 06/29/2024 2:15 PM [facility] MCH 31.4(H) 27.0 - 31.0 PG 06/29/2024 2:15 PM [facility] MCHC 32.2 32.0 - 36.0 G/DL 06/29/2024 2:15 PM [facility] RDW 13.3 11.5 - 14.5 % 06/29/2024 2:15 PM [facility] PLT 232 130 - 400 x10'3/uL 06/29/2024 2:15 PM [facility] MPV 10.4 9.3 - 12.2 FL 06/29/2024 2:15 PM [facility] DIFFERENTIAL TYPE MANUAL DIFFERENTIAL 06/29/2024 2:40 PM [facility] SEG NEUTROPHILS 59 % 2:40 PM [facility] LYMPHOCYTES 20 % 06/29/2024 2:40 PM [facility] MONOCYTES 16 % 06/29/2024 2:40 PM [facility] EOSINOPHILS 3 % 06/29/2024 2:40 PM [facility] METAMYELOCYTES 1 % 06/29/2024 2:40 PM CHIP TUNER [facility] MYELOCYTES 1 % 06/29/2024 2:40 PM CHIP TUNER [facility] ABS. NEUTROPHILS 6.04 1.80 - 7.70 x10'3/uL 06/29/2024 2:40 PM CHIP TUNER [facility] ABS. LYMPHOCYTES 2.05 1.00 - 4.80 x10'3/uL 06/29/2024 2:40 PM CHIP TUNER [facility] ABS. MONOCYTES 1.64(H) 0.30 - 0.82 x10'3/uL 06/29/2024 2:40 PM CHIP TUNER [facility] ABS. EOSINOPHILS 0.31 0.04 - 0.54 x10'3/uL 06/29/2024 2:40 PM CHIP TUNER [facility] ABS. METAMYELOCYTES 0.10(H) 0.00 x10'3/uL 06/29/2024 2:40 PM CHIP TUNER [facility] ABS. MYELOCYTES 0.10(H) 0.00 x10'3/uL 06/29/2024 2:40 PM CHIP TUNER [facility] RBC MORPHOLOGY RBC MORPHOLOGY APPEARS NORMAL. SLIDE REVIEWED. 06/29/2024 2:40 PM CHIP TUNER [facility] PLT EST. ADEQUATE 06/29/2024 2:40 PM CHIP TUNER [facility] 06/29/2024 1:54 PM CHIP TUNER us [facility] Final Resul t [facility] [address] [place] [address], [place] [phone] from Last [address] [place] [address] [place] [id number] [facility] Care Teams Embossing Press Operator Molded Goods Relationship Specialty Start Date End Date None, Provider, MD PCP - General UNKNOWN PHYSICIAN SPECIALTY 06/29/24
--- OUTSIDE RECORDS SUMMARY | 2024-08-04 09:10 | XMS_ITS | Encounter Summary ---
Author Organization [facility] Address [address] [place] [address] Phone Care Team Providers Care Laborer Poultry Hatchery Name Role Phone Martin Tejeda MD Primary Care Provider [phone] Encounter Details Date Type Department Care Team (Late st Contact Info) Description 07/28/2024 Results Follow-Up 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 Gender Identity Not on file Sexual Orientation Not on file documented as of this encounter Miscellaneous Notes * Result Encounter Note - Farhad Arriola MD - 07/28/2024 9:43 AM CDT Pt informed Will check labs and start Rituxan Start Prednisone Ok to cancel ENT appointment for mouth related issues (should continue to follow if other issues) F/u 3-4 weeks in Derm documented in this encounter Plan of Treatment Not on file documented as of this encounter Visit Diagnoses Not on filedocumented in this encounter Care Teams Laborer Poultry Hatchery Relationship Specialty Start Date End Date Martin Tejeda MD PCP - General 03/09/17 documented as of this encounter
--- OUTSIDE RECORDS SUMMARY | 2024-08-04 09:10 | XMS_ITS | Encounter Summary ---
Author Organization [facility] Address [address] [place] [address] Phone Care Team Providers Care Internal Control Analyst Name Role Phone Martin Tejeda MD Primary Care Provider [phone] Reason for Visit * Reason Onset Date Comments Medication Problem 07/27/2024 Encounter Details Date Type Department Care Team (Late st Contact Info) Description 07/27/2024 Telephone [facility] Dermatology [address] [facility] [address] [place] [address] Farhad Arriola MD [address] [address] Medication Problem Social History Tobacco Use Types Packs/Day Years Used Date Smoking Tobacco: Former Cigarettes Smokeless Tobacco: Former Sex and Gender Information Value Date Recorded Sex Assigned at Not on file Legal Sex 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 Pt calling for refill, however, it's too soon to fill. Pharmacy asked why he's out, pt told them hewas told to use 10ml. The directions say 5 ml. Please clarify documented in this encounter Plan of Treatment Not on file documented as of this encounter Visit Diagnoses Not on filedocumented in this encounter Care Teams Internal Control Analyst Relationship Specialty Start Date End Date Martin Tejeda MD PCP - General 03/09/17 documented as of this encounter
== END 2024-08-04 08:48 | disposition home or self-care (01) ==
PROVIDERS: PCP Internal Medicine; Visit Provider Internal Medicine Hematology & Oncology
DX: C34.92 Malignant neoplasm of unspecified part of left bronchus or lung (principal); J43.9 Emphysema, unspecified; S22.060A Wedge compression fracture of T7-T8 vertebra, initial encounter for closed fracture; X58.XXXA Exposure to other specified factors, initial encounter
CPT/HCPCS: 71260; Q9967

== ENCOUNTER 2024-08-14 09:57 | Outpatient (CLI) | payer MEDICARE, OTHER, SELFPAY ==
[2024-08-14 10:09] LABS: Basophils Percent Auto 0.1 % (0.2-1.2); Eosinophils Percent Auto 0.2 % (0-4.4); Hematocrit 42.5 % (42.0-52.0); Hemoglobin 14.1 g/dL (14.0-18.0); Immature Granulocyte Percent A 0.9 % (0-0.5); Lymphocytes Absolute Auto 2.18 K/mm3 (0.9-3.2); Lymphocytes Percent Auto 20.7 % (18.3-44.2); Mean Corpuscular HGB Conc 33.2 g/dl (32-36); Mean Corpuscular Hemoglobin 31.9 pg (26-34); Mean Corpuscular Volume 96.2 fl (80-100); Mean Platelet Volume 9.6 fl (7.4-10.4); Monocytes Absolute Auto 0.4 K/mm3 (0.1-0.6); Monocytes Percent Auto 3.4 % (2.6-8.5); Neutrophils Absolute Auto 7.9 K/mm3 (1.3-6.7); Neutrophils Percent Auto 74.7 % (45.5-73.1); Platelet Count Result 147 k/mm3 (150-375); Red Blood Count 4.42 M/mm3 (4.6-6.20); Red Cell Distribution Width 15.3 % (11.5-14.5); White Blood Count 10.6 K/mm3 (4.5-10.0)
[2024-08-14 10:12] LABS: Blood Urea Nitrogen 25 mg/dL (8-26); Carbon Dioxide 30 mmol/L (22-30); Chloride 100 mmol/L (98-109); Estimated Glomerular Filt Rate > 60; Glucose 124 mg/dL (70-105); Ionized Calcium (POC) 1.14 mmol/L (1.11-1.31); Potassium 4.6 mmol/L (3.5-4.9); Sodium 138 mmol/L (138-146)
[2024-08-14 10:41] LABS: Alanine Aminotransferase 39 U/L (6-50); Albumin Level 3.4 g/dL (3.5-5.1); Alkaline Phosphatase 95 U/L (38-126); Anion Gap 6 mmol/L (4-12); Aspartate Amino Transferase 30 U/L (17-59); Bilirubin,Total 0.6 mg/dL (0.2-1.3); Blood Urea Nitrogen 27 mg/dL (9-20); Calcium 8.9 mg/dL (8.4-10.2); Carbon Dioxide 32 mmol/L (22-30); Chloride 99 mmol/L (98-107); Estimated Glomerular Filt Rate > 60; Glucose 127 mg/dL (65-110); Potassium 4.7 mmol/L (3.4-5.0); Sodium 137 mmol/L (137-145)
--- OUTSIDE RECORDS SUMMARY | 2024-08-14 10:46 | XMS_ITS | Data Portability ---
Author Organization [place] [facility], Main Office Address [address] [place] [address] Care Team Providers Care Museum Security Chief Name Role Phone ELMER KEY Primary Care Provider [phone] Assessment No assessment recorded. Plan of Treatment Reminders Order Date Submit Date Provider Last Modified By Organization Details Last Modified Time Details Appointments Follow Up 15 2024 10:00A M Elmer Key MD Not available Not available Not available Lab unlisted lab - CBC study [address] (Lab), [address] [place], [address], 09/17/2023 08:31:44 uric acid, serum or plasma [address] (Lab), [address] [place], [address], 09/17/2023 08:31:43 lipid panel, serum [address] (Lab), [address] [place], [address], 09/17/2023 08:31:43 CMP, serum or plasma [address] (Lab), [address] [place], [address], 09/17/2023 08:31:43 Referral None recorded. Procedures None recorded. Surgeries None recorded. Imaging None recorded. Medication Orders clotrimaz ole 10 mg mitzi 2024 025 [facility] [address] [place], [address], 06/17/2024 12:42:55 furosemid e 40 mg tablet 2023 024 [facility] [address] [place], [address], 02/20/2024 14:30:48 amlodipin e 5 mg tablet 2023 024 [facility] [address] [place], [address], 02/20/2024 14:30:48 pantopraz ole 40 mg tablet,de layed release 2023 024 [email or web address] [address] [place], [address], 09/02/2023 13:56:11 amlodipin e 10 mg tablet 2023 024 [email or web address] [facility] [address] [place], [address], 05/18/2024 12:46:53 Patient TargetsNo targets recorded. Patient Instructions Encounter Date Encounter Id Patient Instructions Last Modified By Organization Details Last Modified Time 09/02/2023 [id number] dementia rating scale-2* Not available 09/02/2023 12:11:46 alcohol misuse* Not available 09/02/2023 12:11:46 depression screening* Not available 09/02/2023 12:11:46 multi-dimensiona l health assessment questionnaire* [facility] Not available 09/02/2023 12:11:47 Personalized a lt [...] I have no recommendations Depression Screening: Negative [email or web address] Not available 09/02/2023 12:03:37 Reason for Referral None Reported. Results Created Date Observation Date Name Description Value Unit Range Abnormal Flag Note LastModifiedBy Organization Detail LastModifiedTime 11/14/19 24 11/14/2023 CBC W/O DIFFE RENTI AL white blood cells 5.7 x10'3 /uL 4.2-10 .8 Not Available [facility] (Lab) [address] [place], [address], 11/14/2023 19:13:38 11/14/19 24 11/14/2023 CBC W/O DIFFE RENTI AL red blood cells 4.75 x10'6 /uL 4.10-5 .80 Not Available [facility] (Lab) [address] [place], [address], 11/14/2023 19:13:38 11/14/19 24 11/14/2023 CBC W/O DIFFE RENTI AL hemoglobin 14.8 g/dL 13.2-1 7.0 Not Available [facility] (Lab) [address] [place], [address], 11/14/2023 19:13:38 11/14/19 24 11/14/2023 CBC W/O DIFFE RENTI AL hematocrit 45.4 % 39.3-5 0.0 Not Available [facility] (Lab) [address] [place], [address], 11/14/2023 19:13:38 11/14/19 24 11/14/2023 CBC W/O DIFFE RENTI AL mean red cell volume 95.6 fL 80.0-9 7.0 Not Available [facility] (Lab) [address] [facility] [place], [address], 11/14/2023 19:13:38 11/14/19 24 11/14/2023 CBC W/O DIFFE RENTI AL mean red cell hemoglobin 31.2 pg 27.0-3 3.0 Not Available [facility] (Lab) [address] [place], [address], 11/14/2023 19:13:38 11/14/19 24 11/14/2023 CBC W/O DIFFE RENTI AL mean RBC HGB concentratio n 32.6 g/dL 31.0-3 6.0 Not Available [facility] (Lab) [address] [place], [address], 11/14/2023 19:13:38 11/14/19 24 11/14/2023 CBC W/O DIFFE RENTI AL red cell distribution width 13.7 % 11.8-1 5.5 Not Available [facility] (Lab) [address] [place], [address], 11/14/2023 19:13:38 11/14/19 24 11/14/2023 CBC W/O DIFFE RENTI AL platelets 244 x10'3 /uL 150-40 0 Not Available [facility] (Lab) [address] [place], [address], 11/14/2023 19:13:38 11/14/19 24 11/14/2023 CBC W/O DIFFE STEVIE AL mean platelet volume 11.0 fL 9.0-12 .4 Not Available [facility] (Lab) [address] [place], [address], 11/14/2023 19:13:38 11/14/19 24 11/14/2023 COMPR EHENS YOSHI METAB OLIC PANEL sodium 134 mmol/ L 137-14 5 low Not Available [facility] (Lab) [address] [place], [address], 11/14/2023 19:33:35 11/14/19 24 11/14/2023 COMPR EHENS YOSHI METAB OLIC PANEL potassium 4.5 mmol/ L 3.5-5. 1 Not Available [facility] (Lab) [address] [place], [address], 11/14/2023 19:33:35 11/14/19 24 11/14/2023 COMPR EHENS YOSHI METAB OLIC PANEL chloride 98 mmol/ L 98-107 Not Available [facility] (Lab) [address] [place], [address], 11/14/2023 19:33:35 11/14/19 24 11/14/2023 COMPR EHENS YOSHI METAB OLIC PANEL carbon dioxide 32 mmol/ L 22-30 high Not Available [facility] (Lab) [address] [place], [address], 11/14/2023 19:33:35 11/14/19 24 11/14/2023 COMPR EHENS YOSHI METAB OLIC PANEL anion gap 8.5 mmol/ L 14-22 low Not Available [facility] (Lab) [address] [place], [address], 11/14/2023 19:33:35 11/14/19 24 11/14/2023 COMPR EHENS YOSHI METAB OLIC PANEL glucose 97 mg/dL 70-99 Not Available [facility] (Lab) [address] [place], [address], 11/14/2023 19:33:35 11/14/19 24 11/14/2023 COMPR EHENS YOSHI METAB OLIC PANEL BUN 13 mg/dL 8-19 Not Available [facility] (Lab) [address] [place], [address], 11/14/2023 19:33:35 11/14/19 24 11/14/2023 COMPR EHENS YOSHI METAB OLIC PANEL creatinine 0.60 mg/dL 0.66-1 .25 low Not Available [facility] (Lab) [address] [place], [address], 11/14/2023 19:33:35 11/14/19 24 11/14/2023 COMPR EHENS YOSHI METAB OLIC PANEL GFR >60 Refer ence Range : [place] [facility] GFR Healt hy Adult : >60 [...] or ethni c subgr oups, such as [facility] nics. Outsi de the valid ated fredo [...] calcu lator is avail able on the [facility] websi te: [email or web address] :[email or web address] [email or web address].liz [email or web address] rg/pr ofess ional s/kdo qi/gf r_cal culat or Not Available [facility] (Lab) [address] [place], [address], 11/14/2023 19:33:35 11/14/19 24 11/14/2023 COMPR EHENS YOSHI METAB OLIC PANEL alkaline phosphatase 101 U/L 38-126 Not Available [facility] (Lab) [address] [place], [address], 11/14/2023 19:33:35 11/14/19 24 11/14/2023 COMPR EHENS YOSHI METAB OLIC PANEL alanine aminotransfe rase 16 U/L 0-50 Not Available [facility] (Lab) [address] [place], [address], 11/14/2023 19:33:35 11/14/19 24 11/14/2023 COMPR EHENS YOSHI METAB OLIC PANEL aspartate aminotransfe rase 29 U/L 15-46 Not Available [facility] (Lab) [address] [place], [address], 11/14/2023 19:33:35 11/14/19 24 11/14/2023 COMPR EHENS YOSHI METAB OLIC PANEL bilirubin, total 0.50 mg/dL 0.20-1 .30 Not Available [facility] (Lab) [address] [place], [address], 11/14/2023 19:33:35 11/14/19 24 11/14/2023 COMPR EHENS YOSHI METAB OLIC PANEL calcium 8.5 mg/dL 8.4-10 .2 Not Available [facility] (Lab) [address] [place], [address], 11/14/2023 19:33:35 11/14/19 24 11/14/2023 COMPR EHENS YOSHI METAB OLIC PANEL total protein 6.5 g/dL 6.3-8. 2 Not Available [facility] (Lab) [address] [place], [address], 11/14/2023 19:33:35 11/14/19 24 11/14/2023 COMPR EHENS YOSHI METAB OLIC PANEL albumin 4.0 g/dL 3.0-4. 4 Not Available [facility] (Lab) [address] [place], [address], 11/14/2023 19:33:35 11/14/19 24 11/14/2023 COMPR EHENS YOSHI METAB OLIC PANEL globulin 2.5 g/dL 2.6-4. 2 low Not Available [facility] (Lab) [address] [place], [address], 11/14/2023 19:33:35 11/14/19 24 11/14/2023 COMPR EHENS YOSHI METAB OLIC PANEL A/G ratio 1.6 ratio 1.0-2. 0 Not Available [facility] (Lab) [address] [place], [address], 11/14/2023 19:33:35 11/14/19 24 11/14/2023 URIC ACID SERUM uric acid 4.7 mg/dL 3.5-8. 5 Not Available [facility] (Lab) [address] [place], [address], 11/14/2023 19:33:37 11/14/19 24 11/14/2023 LIPID PANEL cholesterol 197 mg/dL 140-19 9 NIH RIC NSUS RECOM MENDA TION FOR NAN STERO L: ADULT CHILD LOW RISK: <200 <170 BORDE RLINE : <200- 239 ----- HIGH RISK: >240 >200 Not Available [facility] (Lab) [address] [place], [address], 11/14/2023 19:33:38 11/14/19 24 11/14/2023 LIPID PANEL triglyceride s 140 mg/dL 0-150 NIH RIC NSUS REPOR T RECOM MENDA TION FOR TRIGL YCERI BHANU: ADULT CHILD LOW RISK: <150 ----- BODER LINE: 150-1 99 ----- HIGH RISK: >200 ----- Not Available [facility] (Lab) [address] [place], [address], 11/14/2023 19:33:38 11/14/19 24 11/14/2023 LIPID PANEL HDL cholesterol 61 mg/dL 40- Not Available [facility] (Lab) [address] [place], [address], 11/14/2023 19:33:38 11/14/19 24 11/14/2023 LIPID PANEL [...] WILL NOT BE REPOR ASHLYN. Not Available [facility] (Lab) [address] [place], [address], 11/14/2023 19:33:38 01/24/20 24 01/23/2024 XR, ribs, [...] observ ation record ed. Not Available 2024 14:17:44 08/05/19 25 08/04/2024 CT, chest , w/ contr ast No observ ation record ed. Not Available 2024 09:34:49 Result Notes None recorded. Problems Name Problem SNOMED Code Status Onset Date Resolution Date Notes Provider Name and Address Organization Details Recorded Time Chronic obstruct yoshi pulmonar y disease 21492519 Active Not Available [facility] 3 02:48:08 Hyperkal emia 27478409 Active Not Available [facility] 3 02:48:08 Liver function tests outside referenc e range 405572354 Active 2022 Krystina lawrence RMA null, [employer] 3 10:00:45 Postoper ative visit 829202761 Completed 201712/12/2021 Not Available [facility] 3 02:48:08 Pneumoni a 111358721 Completed 202208/20/2022 Krystina lawrence RMA nathaniel, [facility] 3 10:00:38 Gastroes ophageal reflux disease 086086938 Active 2020 Not Available [facility] 3 02:48:08 Fracture of calcaneu s 788287637 Completed 201712/12/2021 Not Available [facility] 3 02:48:08 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 588372467 Active 2016 Not Available [facility] 3 02:48:09 Prostate specific antigen above referenc e range 000619151 Active 2021 Not Available [facility] 3 02:48:09 Malignan t tumor of prostate 733701802 Active 2021 Not Available [facility] 3 02:48:09 Melanocy tic nevus 186591773 Completed Not Available [facility] 3 02:48:09 Epidermo id cyst of skin 524859517 Completed Not Available [facility] 3 02:48:09 Solitary nodule of lung 191994468 Active Not Available [facility] 3 02:48:09 Former heavy tobacco smoker 60351878043 4100 Active 2016 Not Available [facility] 3 02:48:09 History of polyp of colon 984371379 Active Not Available [facility] 3 02:48:09 Aneurysm of thoracic aorta 234717750 Active Not Available [facility] 3 02:48:09 Cough 32084548 Completed Not Available [facility] 3 02:48:09 Upper respirat ory infectio n 02573141 Completed Elmer Key MD [address], [address], [place], [address] , [facility] [employer] 3 11:11:50 Hyperlip idemia 86616821 Active Not Available [facility] 3 02:48:09 Occult blood detected in feces 43600374 Active history of heme pos stools, no hemorrho ids in the past Not Available [facility] 3 02:48:10 [facility] hyperten trey 41538364 Active Not Available [facility] 3 02:48:10 Polyp of colon 40347824 Active Not Available [facility] 3 02:48:10 Erectile dysfunct ion 254994887 Active 2020 Not Available [facility] 3 02:48:10 Gout 51784107 Active Not Available [facility] 3 02:48:10 Pleural effusion 67290664 Active 2022 Elmer Key MD [address], [address], [place], [address] , [employer] [facility] 3 10:21:33 Thrombos is of thoracic aorta 38201414 Active 2022 Elmer Key MD [address], [address], [place], [address] , [facility] [employer] [facility] 3 10:28:10 Upper respirat ory infectio n 29851444 Active 2022 Elmer Key MD [address], [address], [place], [address] , [facility] [employer] [facility] 3 11:11:50 Acid reflux 732260809 Active 2023 Krystina Mendy n, ROYER null, [facility] [employer] [facility] 4 11:49:02 Malignan t tumor of lung 200154413 Active 2023 Elmer Key MD [address], [address], [place], [address] , [facility] [employer] [facility] 4 11:09:13 Edema of lower extremit y 814185957 Active 2023 Elmer Key MD [address], [address], [place], [address] , [facility] [employer] [facility] 4 14:25:09 Edema 248839160 Active 2023 Elmer Key MD [address], [address], [place], [address] , [facility] [employer] [facility] 4 10:59:59 Sinusiti s 53556494 Active 2024 Rona Dunbar MA null, [facility] [employer] [facility] 5 11:36:00 Candidia sis of mouth 52570715 Active 2024 Elmer Key MD [address], [address], [place], [address] , [facility] [employer] [facility] 5 12:39:31 Compress ion fracture of thoracic vertebra 37422896625 04 Active 2024 Elmer Key MD [address], [address], [place], [address] , [facility] [employer] [facility] 5 09:34:47 Problem Notes None recorded. Procedures Surgical History Date Name Laterality Status Provider Name and Address Organization Details Recorded Time 09/02/19 Medicare Wellness CPT Code, subsequent completed Brianna Urbina RN [place] [facility] 09/02/2023 11:57:36 08/21/19 Medicare Wellness CPT Code, subsequent completed Amy Vincent RN [place] [employer] [facility] 08/20/2022 10:29:04 Orthopedic Surgery completed Not Available [facility] 07/18/2022 02:42:55 colonoscopy completed Not Available [facility] 07/18/2022 02:42:55 Imaging Results Imaging Date Name Status LastModified by [facility] Details LastModified Time 01/23/2024 XR, ribs, bilateral completed [facility] Information not available 01/24/2024 17:36:24 01/28/2024 XR, thoracic spine, 3 view completed [facility] Information not available 01/28/2024 18:10:50 04/12/2024 XR, chest, 2 view completed [facility] Information not available 04/14/2024 17:40:33 05/07/2024 PET, skull base to mid-thigh completed Information not available 06/03/2024 08:57:52 07/18/2024 CT, angiogram, chest, w/o contrast completed Information not available 07/29/2024 14:17:44 08/04/2024 CT, chest, w/ contrast completed Information not available 08/05/2024 09:34:49 Procedure Notes None recorded. Medical Equipment None Reported. Allergies No known drug allergies Medications Name Sig Start Date Stop Date Status Note LastModified by Organization Details LastModified Time lido2%/ny cx604p/pr edn15/5 susp SWISH AND SWALLOW 5-10ML BY [...] completed Not Available Not Available Not Available [employer] 160 mcg-9mcg- 4.8mcg/ac tuation HFA [...] Updated DateTime 4 175.26 cm 25.3 kg/m2 57617.3 g 97.5 [degF] 71 /min 94 % 94 % 140 mm[Hg] 86 mm[Hg] ROYER Caro [place] [employer] [facility] 4 11:44:14 Date Recorded Pain severity - 0-10 verbal numeric rating [Score] - Reported Provider Name and Address Organization Details Last Updated DateTime 09/02/2023 0 Brianna Urbina RN [facility] [employer] [facility] 09/02/2023 11:57:54 Date Recorded Body height Body mass index (BMI) Body weight Body temperature Heart rate Oxygen saturation Oxygen saturation in Arterial blood by Pulse oximetry Systolic blood pressure Diastolic blood pressure Provider Name and Address Organization Details Last Updated DateTime 4 175.26 cm 25.5 kg/m2 56347.4 8 g 96.8 [degF] 77 /min 93 % 93 % 116 mm[Hg] 70 mm[Hg] ROYER Caro [place] [employer] [facility] [employer] [facility] 4 10:51:22 Date Recorded Body height Body mass index (BMI) Body weight Body temperature Heart rate Oxygen saturation Oxygen saturation in Arterial blood by Pulse oximetry Systolic blood pressure Diastolic blood pressure Provider Name and Address Organization Details Last Updated DateTime 4 175.26 cm 24.2 kg/m2 82659.1 5 g 97.4 [degF] 89 /min 90 % 90 % 120 mm[Hg] 66 mm[Hg] ROYER Caro [facility] [employer] [facility] 4 14:02:38 Date Recorded Body weight Body mass index (BMI) Body height Body temperature Heart rate Oxygen saturation Oxygen saturation in Arterial blood by Pulse oximetry Systolic blood pressure Diastolic blood pressure Provider Name and Address Organization Details Last Updated DateTime 4 52654 g 23.2 kg/m2 175.26 cm 97.7 [degF] 95 /min 97 % 97 % 116 mm[Hg] 68 mm[Hg] ROYER Caro [facility] [employer] [facility] 4 10:46:53 Date Recorded Body height Body mass index (BMI) Body weight Body temperature Heart rate Oxygen saturation Oxygen saturation in Arterial blood by Pulse oximetry Inhaled oxygen flow rate Systolic blood pressure Diastolic blood pressure Provider Name and Address Organization Details Last Updated DateTime 5 175.26 cm 22.2 kg/m2 87345.8 6 g 97.6 [degF] 97 /min 96 % 96 % 2 L/min 119 mm[Hg] 78 mm[Hg] Qiana mi [place] [employer] [facility] 5 12:32:51 Social History Question Answer Notes LastModified by Organization Details LastModified Time Tobacco Smoking Status Former Smoker Quit- 2005 Radha Nowak RN [facility], [facility] [employer] [facility] 04/19/2023 10:06:59 Do You Have An Advance Directive? Yes [id number] Information not available 07/18/2022 What Is Your Level Of Alcohol Consumption? Moderate 2-3x/wk [email or web address] Information not available 09/02/2023 Do You Wear A Helmet When Biking? No [email or web address] Information not available 04/19/2023 Are You Blind Or Do You Have Difficulty Seeing? No [email or web address] Information not available 04/19/2023 What Is Your Level Of Caffeine Consumption? Occasional 1 Cup Coffe In The Morning [id number] Information not available 07/18/2022 How Much Tobacco Do You Chew? None [id number] Information not available 07/18/2022 Are You Deaf Or Do You Have Serious Difficulty Hearing? No [email or web address] Information not available 04/19/2023 What Type Of Diet Are You Following? REGULAR [id number] Information not available 07/18/2022 Which Illicit Or Recreational Drugs Have You Used? None [email or web address] Information not available 04/19/2023 Do You Or Have You Ever Used E-cigarettes Or Vape? Never Used Electronic Cigarettes [email or web address] Information not available 04/19/2023 What Is The Highest Grade Or Level Of School You Have Completed Or The Highest Degree You Have Received? [id number] [email or web address] Information not available 04/19/2023 What Is Your Occupation? Retired Information not available 04/19/2023 Have There Been Any Changes To Your Family Or Social Situation? No [email or web address] Information not available 04/19/2023 What Is The Fluoride Status Of Your Home? Fluoridated [email or web address] Information not available 04/19/2023 When Did You Quit Smoking? 16+yearssincelastc igarette [email or web address] Information not available 04/19/2023 Are There Any Guns Present In Your Home? No [email or web address] Information not available 04/19/2023 Do You Use Insect Repellent Routinely? No [email or web address] Information not available 04/19/2023 [place] You [place] [email or web address] Information not available 04/19/2023 Advance Directive- Providers Has Reviewed Directive And Consents To Follow Them (insert Provider Name With Any Objectives In Notes Field) Yes Information not available 08/20/2022 Guns Present In The Home? Yes [email or web address] Information not available 09/02/2023 Are You Able To Care For Yourself? Yes Information not available 08/20/2022 Are You Blind Or Do Yo Have Difficulty Seeing? No [email or web address] Information not available 08/20/2022 Are You Deaf Or Do You Have Serious Difficulty Hearing? No [email or web address] Information not available 08/20/2022 General Stress Level? Low [email or web address] Information not available 08/20/2022 Live Alone Of With Others? With Others [email or web address] Information not available 08/20/2022 Do You Have A Medical Power Of Field Training Manager? Yes [email or web address] Information not available 04/19/2023 What Was The Date Of Your Most Recent Tobacco Screening? 09/02/2023 [email or web address] Information not available 09/02/2023 Do You Have Any Pets? No [email or web address] Information not available 04/19/2023 What Is Your Relationship Status? [id number].[id number] [id number] Information not available 07/18/2022 Do You Use Your Seat Belt Or Car Seat Routinely? Yes [email or web address] Information not available 04/19/2023 Do You Have Smoke And Carbon Monoxide Detectors In Your Home? Yes [email or web address] Information not available 04/19/2023 At What Age Did You Start Smoking Tobacco? 12 [email or web address] Information not available 04/19/2023 Are You Passively Exposed To Smoke? No [email or web address] Information not available 04/19/2023 Do You Or Have You Ever Used Smokeless Tobacco? Never Used Smokeless Tobacco MIGRATION.[id number] [id number] Information not available 07/18/2022 How Much Tobacco Do You Smoke? 3+ PPD MIGRATION.0301 [id number] Information not available 07/18/2022 Do You Feel Stressed (tense, Restless, Nervous, Or Anxious, Or Unable To Sleep At Night)? [id number] [email or web address] Information not available 04/19/2023 Do You Use Any Illicit Or Recreational Drugs? No Information not available 04/19/2023 Do You Use Sunscreen Routinely? No [email or web address] Information not available 04/19/2023 Has Tobacco Cessation Counseling Been Provided? No [email or web address] Information not available 04/19/2023 How Many Years Have You Smoked Tobacco? 43 [email or web address] Information not available 04/19/2023 Have You Recently Traveled Abroad? Yes Last Mo Went To [place] [email or web address] Information not available 04/19/2023 Do You Have Any Dietary Restrictions? No [email or web address] Information not available 04/19/2023 Do You Or Have You Ever Used Any Other Forms Of Tobacco Or Nicotine? No [email or web address] Information not available 04/19/2023 Sex: Male Functional Status Question Answer Note LastModified by Organizat ion Details LastModified Time Do you have difficulty walking or climbing stairs? No [email or web address] Information not available 04/19/2023 Do you have transportation difficulties? No [email or web address] Information not available 04/19/2023 Are you able to walk? YESWOREST [email or web address] Information not available 04/19/2023 Do you have difficulty doing errands alone? No [email or web address] Information not available 04/19/2023 Are you able to care for yourself? Yes [email or web address] Information n ot available 04/19/2023 Do you have difficulty dressing or bathing? No Information not available 04/19/2023 What is your exercise level? Occasional [id number] Information not available 07/18/2022 Mental Status Question Answer Note LastModified by Organization D etails LastModified Time Do you have difficulty concentrating, remembering or making decisions? No [email or web address] Information no t available 04/19/2023 Family History Relationship Description Onset Age of this Age Resolved Age Notes LastModified by Organization Details LastModified Time Mother Malignant tumor of lung MIGRATION.[id number] Not available 07/18/2022 02:42:57 Notes:Blood clot- father Medical History Condition Response GOUT Y GERD/NAUSEA Y COPD Y HYPERTENSION Y HIGH CHOLESTEROL / HYPERLIPIDEMIA Y Immunizations Vaccine Type Date Status Note Provider Nam e and Address Organization Details Recorded Time COVID-19, mRNA, LNP-S, PF, 30 mcg/0.3 mL dose 1 completed Not Available [facility] 07/18/2022 02:54:36 Influenza, high-dose, quadrivalent, PF 1 completed Not Available [facility] 07/18/2022 02:54:36 SARS-COV-2 (COVID-19) vaccine, UNSPECIFIED 1 completed Not Available [facility] 07/18/2022 02:54:37 SARS-COV-2 (COVID-19) vaccine, UNSPECIFIED 1 completed Not Available [facility] 07/18/2022 02:54:37 Influenza, high-dose, trivalent, PF 9 completed Not Available [facility] 07/18/2022 02:54:37 Influenza, split virus, trivalent, preservative 7 completed Not Available [facility] 07/18/2022 02:54:37 pneumococcal polysaccharide PPV23 7 completed [facility] 07/18/[facility]22 02:54:37 Influenza, high-dose, trivalent, PF 0 completed Not Available [facility] 07/18/2022 02:54:37 influenza nasal, unspecified formulation 5 completed Not Available [facility] 07/18/2022 02:54:37 pneumococcal polysaccharide PPV23 4 completed Not Available [facility] 07/18/2022 02:54:37 Influenza, split virus, trivalent, PF 4 completed Not Available [facility] 07/18/2022 02:54:37 Past Encounters Encounter ID Performer Location Encounter Start Date Encounter Closed Date Diagnosis/Indication Diagnosis SNOMED-CT Code Diagnosis ICD10 Code Diagnosis Note [id number] [facility] [address] [address] 08/30/2020 00:00:00 08/30/2020 12:16:34 [id number] _ATHENA_M IGRATION_ DEFAULT_1 _1 , 10/12/2020 00:00:00 10/12/2020 11:39:09 [id number] [facility] [address] [address] 12/27/2020 00:00:00 12/27/2020 10:48:46 [id number] [facility] [address] [address] 04/26/2021 00:00:00 04/26/2021 13:17:38 [id number] [facility] [address] [address] 08/28/2021 00:00:00 08/28/2021 10:02:42 [id number] [facility] [address] [address] 12/18/2021 00:00:00 12/18/2021 10:10:52 [id number] [facility] [address] [address] 04/19/2022 00:00:00 04/19/2022 10:09:01 [id number] [facility] Internal [address] [place] [address] 06/07/2022 00:00:00 06/07/2022 12:04:24 [id number] Elmer Key MD [facility] [place] [facility] [address] [place] [address] 08/20/2022 09:52:55 08/20/2022 10:29:50 Essential hypertension 41315025 I10 Under control Chronic ob structive pulmonary disease 95715626 J44.9 Under control with inhalers Gout 03719365 M10.9 no recurrence Hyperlipidemia 35015234 E78.5 Stable watch diet Gastroesop hageal reflux disease 708503650 K21.9 Better Erectile dysfunction 860 074712 F52.21 Meds help Malignant tumor of prostate 874634851 C61 PSA- stable Adult heal th examination 899379077 Z00.00 Colonoscop y- 11/2020, polyp, next in 5 yrsPSA- 2[facility]- 10/05/2020 FLU- 2COV ID- #1- 06/23/20, #2- 07/26/20, all boosters Pleural effusion 2270267 8 J90 recurrence , seeing pulm History of polyp of colon 631125872 Z86.010 Liver func tion tests outside reference range 136601444 R94.5 Solitary n odule of lung 506326594 R91.1 Family his tory of aneurysm of thoracic aorta 602081133 Z82.49 Thrombosis of thoracic aorta 37236845 I74.11 on xarelto, needs duration, he will discuss with cardiology Screening for disorder 079673187 Z13.9 [id number] Elmer Key MD [facility] [address] [facility] [place] [address] 12/20/2022 10:00:02 12/20/2022 10:42:27 Essential hypertension 70545899 I10 Under control Chronic ob structive pulmonary disease 58384256 J44.9 Under control with inhalers, o2 as needed Gout 08428848 M10.9 no recurrence Hyperlipidemia 31282591 E78.5 Stable watch diet Gastroesop hageal reflux disease 079447340 K21.9 Better Malignant tumor of prostate 331511675 C61 PSA- stable Adult heal th examination 992861862 Z00.00 Colonoscop y- 11/2020, polyp, next in 5 yrsPSA- re gallito 2016 @ [facility]- 04/2014, 02/2017[facility] T- 10/05/2020 FLU- 2COV ID- #1- 06/23/20, #2- 07/26/20, all boosters Pleural effusion 4051677 8 J90 improved History of polyp of colon 409344480 Z86.010 Family his tory of aneurysm of thoracic aorta 789039945 Z82.49 seeing cardiology Thrombosis of thoracic aorta 58358278 I74.11 on xarelto, he needs it for life long due to previous h/o of DVT [id number] Elmer Key MD [facility] [address] [place] [address] 04/19/2023 10:04:21 04/22/2023 09:55:17 Essential hypertension 07534273 I10 watch Chronic ob structive pulmonary disease 55519985 J44.9 Under control with inhalers, o2 as needed Gout 70489284 M10.9 no recurrence Hyperlipidemia 03600191 E78.5 Stable watch diet Gastroesop hageal reflux disease 337687073 K21.9 Better Malignant tumor of prostate 032969604 C61 PSA- stable Pleural effusion 0334060 8 J90 improved History of polyp of colon 546900729 Z86.010 Family his tory of aneurysm of thoracic aorta 254870284 Z82.49 seeing cardiology Thrombosis of thoracic aorta 80297072 I74.11 on xarelto, he needs it for life long due to previous h/o of DVT Adult heal th examination 628674675 Z00.00 Colonoscop y- 11/2020, polyp, next in 5 yrsPSA- 2022 at urology , was 0.4Prevnar 2016 @ [facility]- 04/2014, 02/2017[facility] T- 10/05/2020 FLU- OV ID- #1- 06/23/20, #2- 07/26/20, all boosters Upper resp iratory infection 60336449 J06.9 mucinex prn , call next week if not better [id number] Elmer Key MD [facility] [address] [place] [address] 09/02/2023 11:39:10 09/02/2023 12:15:37 Essential hypertension 16761022 I10 ^ the amlodipine Chronic ob structive pulmonary disease 61230952 J44.9 Under control with inhalers, o2 as needed Gout 84986727 M10.9 no recurrence Hyperlipidemia 59612263 E78.5 Stable watch diet Gastroesop hageal reflux disease 661920564 K21.9 Better Malignant tumor of prostate 058161719 C61 PSA- stable Pleural effusion 8051203 8 J90 improved Family his tory of aneurysm of thoracic aorta 517597975 Z82.49 seeing cardiology Thrombosis of thoracic aorta 06141729 I74.11 on xarelto, he needs it for life long due to previous h/o of DVT Adult heal th examination 437529632 Z00.00 Colonoscop y- 11/2020, polyp, next in 5 yrsPSA- 2022 at urology , was 0.4Prevnar 2016 @ [facility]- 04/2014, 02/2017[facility] T- 10/05/2020 , CT-Chest- 12/18/2022, PET- 09/18/2022 FLU- 02/2022, 02/22/2023R SV- 02/22/2023 OVID- #1- 06/23/20, #2- 07/26/20, 02/28/2023 all boosters Acid reflux 606452532 K2 1.9 Screening for disorder 285619195 Z13.9 [id number] Elmer Key MD [facility] [address] [facility] [place] [address] 12/31/2023 10:43:14 12/31/2023 11:14:03 Essential hypertension 89120631 I10 better since dose was increased Chronic ob structive pulmonary disease 22135004 J44.9 Under control with inhalers, o2 as needed Gout 99442597 M10.9 no recurrence Hyperlipidemia 24432272 E78.5 Stable watch diet Gastroesop hageal reflux disease 237279698 K21.9 Better Malignant tumor of prostate 424637383 C61 PSA- stable, being li at urology Pleural effusion 8716793 8 J90 improved Thrombosis of thoracic aorta 75753668 I74.11 on xarelto, he needs it for life long due to previous h/o of DVT Acid reflux 458856502 K2 1.9 meds help Adult heal th examination 898930808 Z00.00 Colonoscop y- 11/2020, polyp, next in 5 yrsPSA- at urologyPre vnar 2016 @ [facility]- 04/2014, [facility] T- 10/05/2020 , CT-Chest- 12/18/2022, PET- 09/18/2022 FLU- 02/2022, 02/22/2023R SV- 02/22/2023 OVID- #1- 06/23/20, #2- 07/26/20, 02/28/2023 all boosters Ex-smoker 7689411 Z87.89 1 has quit long time ago Malignant tumor of lung 627518365 C34.90 s/p RT, getting CT chest for f/u next month [id number] Elmer Key MD [facility] [address] [facility] [place] [address] 02/20/2024 13:58:54 02/20/2024 14:37:06 Edema of lower extremity 166428801 R60.0 could be due to amlodipine , will cut done the dose to 5 mgwill try Furosemide less likely DVT, although at high risk due yo cancer but already on xarelto Essential hypertension 79079154 I10 decrease the dose [id number] Elmer Key MD [facility] [address] [facility] [place] [address] 03/24/2024 10:39:30 03/24/2024 11:02:13 Essential hypertension 03249921 I10 under control Edema 160121380 R60.9 improvedst op furosemide call if starts swelling again [id number] Elmer Key MD [facility] [address] [place] [address] 06/17/2024 12:20:12 06/17/2024 12:48:52 Candidiasis of mouth 96893394 B37.0 Health Concerns Section Related Observation LastModified by Organization Detai ls LastModified Time None Recorded Concern Status LastModified by Organization Details LastModified Time None Recorded Advance Directives Directive Y: Payers Encounter Date Sequence Insurance Name Policy Number Policy Leonard Covered Member ID Leonard Member ID Guarantor Name 09/02/2023 1 [place] Donta Forrest Bessy [id number] 3 Donta Forrest Bessy 09/02/2023 2 [employer] (MEDICARE SUPPLEMENT) PLAN G Donta Adriane OgdenBessy [id number] Dontaphilip OgdenBessy 12/31/2023 1 [place] Donta Adriane OgdenBessy [id number] 3 Donta Adriane OgdenBessy 12/31/2023 2 [employer] [place] (MEDICARE SUPPLEMENT) PLAN G Donta L Bessy [id number] Donta Forrest Bessy 02/20/2024 1 [place] Donta Forrest Bessy [id number] 3 Donta Adriane Bessy 02/20/2024 2 [employer] [place] (MEDICARE SUPPLEMENT) PLAN G Donta Adriane Bessy [id number] Donta Forrest Bessy 03/24/2024 1 [place] Donta L Bessy [id number] 33 [id number] 3 Donta L Bessy 03/24/2024 2 [employer] [place] (MEDICARE SUPPLEMENT) PLAN G Donta L Bessy [id number] Donta Forrest Bessy 06/17/2024 1 [place] Donta Forrest Bessy [id number] 3 Dontaphilip Doherty 06/17/2024 2 [employer] [place] (MEDICARE SUPPLEMENT) PLAN G Donta Forrest Bessy [id number] Donta Adriane Doherty Notes Date Note Type Note Provider [...] inhaler PRNHe is ex- smoker. Quit 2005Lu nodule- CT scan showed increase in size [...] , LFT nl Elmer Key MD [address] [facility], [place], [address], [facility] [employer] 09/02/2023 13:55:14 12/31/2023 text/html Doing fine, compliant [...] LFT nl Elmer Key MD [address], [address], [place], [address], [facility] 12/31/2023 11:13:44 02/20/2024 text/html Pt is here [...] the past Elmer Key MD [address], [address], [place], [address], [facility] 02/20/2024 15:54:57 03/24/2024 text/html Pt is here today for a 1 month follow upHe is currently on Furosemide for bilateral lower leg edema which has cleared.amlodipine was decreased to 5 mgHe has lost 7 lbs Elmer Key MD [address], [place], [address], [facility] 03/24/2024 11:01:45 06/17/2024 text/html Pt is here [...] pain on swallowingno fever Elmer Key MD [address] [place] [address], [facility] [address], [place], [address], [place] [facility] 06/17/2024 12:43:49
--- OUTSIDE RECORDS SUMMARY | 2024-08-14 10:46 | XMS_ITS | Encounter Summary ---
Author Organization [facility] Address [address] [place] [address] Care Team Providers Care Crate Builder Name Role Phone Martin Tejeda MD Primary Care Provider [phone] Reason for Referral * CT Scan (Routine) - Open Specialty Diagnoses / Procedures Referred By Contac t Referred To Contact Diagnoses Malignant neoplasm of left lung, unspecified part of lung (CMS/HCC) Procedures CT CHEST W CONTRAST Cash Chamberlain MD [address] [place] [address] Phone: tel: fax: Referral ID Status Reason Start Date Expiration Date Visits Re quested Visits Authorized [id number] Open 08/14/2024 09/14/2025 1 1 Encounter Details Date Type Department Care Team (Late st Contact Info) Description 08/14/2024 10:15 AM CDT Office Visit 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 Sexual Orientation Not on file documented as of this encounter Last Filed Vital Signs Vital Sign Reading Time Taken Comments Blood Pressure 113/70 08/14/2024 10:14 AM CDT Pulse 81 08/14/2024 10:14 AM CDT Temperature 35.9 C (96.6 F) 08/14/2024 10:14 AM CDT Respiratory Rate 15 08/14/2024 10:14 AM CDT Oxygen Saturation 95% 08/14/2024 10:14 AM CDT Inhaled Oxygen Concentration - - Weight 67.4 kg (148 lb 9.6 oz) 08/14/2024 10:14 AM CDT Height - - Body Mass Index 21.32 11/11/2023 1:22 PM CDT documented in this encounter Plan of Treatment Scheduled Orders Name Type Priority Associated Diagnoses Orde r Schedule CBC WITHOUT DIFFERENTIAL Lab Stat Malignant neoplasm of left lung, unspecified part of lung (CMS/HCC) Expected: 11/06/2024, Expires: 08/14/2025 COMPREHENSIVE METABOLIC PANEL Lab Stat Malignant neoplasm of left lung, unspecified part of lung (CMS/HCC) Expected: 11/06/2024, Expires: 08/14/2025 CT CHEST W CONTRAST Imaging Routine Malignant neoplasm of left lung, unspecified part of lung (CMS/HCC) Expected: 11/14/2024, Expires: 08/14/2025 documented as of this encounter Visit Diagnoses Diagnosis Malignant neoplasm of left lung, unspecified part of lung (CMS/HCC)- Primary documented in this encounter Care Teams Crate Builder Relationship Specialty Start Date End Date Martin Tejeda MD [address] [place] [address] PCP - General Internal Medicine 11/11/23 documented as of this encounter
--- OUTSIDE RECORDS SUMMARY | 2024-08-14 10:46 | XMS_ITS | Clinical Summary ---
Author Organization [facility] Address [address] [place] [address] Phone Care Team Providers Care Air Tucker Name Role Phone Martin Tejeda MD Primary Care Provider [phone] Allergies No known active allergies Medications atenoloL [...] Encounters Date Type Department Care Team Description 08/14/2024 10:15 AM CDT Office Visit [facility] Oncology and Hematology [facility] [address] [place] [address] Cash Chamberlain MD Malignant neoplasm of left lung, unspecified part of lung (CMS/HCC) (Primary Dx) 08/05/2024 External Device Data STL ABSTRACTION Provider, Abstract 08/04/2024 Orders Only [facility] Oncology and [facility] [address] [place] [address] Cash Chamberlain MD 07/27/2024 External Device Data STL ABSTRACTION Provider, [...] CDT Gender Identity Male 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 Sexual Orientation Not on file Last Filed [...] 9.6 oz) 08/14/2024 10:14 AM CDT Height 177.8 cm (5' 10 ) 11/11/2023 1:22 PM CDT Body Mass Index 21.32 11/11/2023 1:22 PM CDT Plan of Treatment Health Maintenance Due Date Last Done Comments DTAP/TDAP/TD VACCINES (1 - Tdap) 12/08/1967 Traditional Medicare (ACO) A nnual Wellness Visit 12/08/1967 COLORECTAL SCREENING 1993 Colorectal Cancer Screening [...] Procedure Name Priority Date/Time Associated Diagnosis Comments CT CHEST W CONTRAST Routine 08/04/2024 2:37 PM CDT from Last 3 Months Results * CT CHEST W CONTRAST (08/04/2024 2:37 PM CDT) Anatomical Region Laterality Modality Chest Computed Tomogra phy Cash Chamberlain MD CT ORDERABLES Final Result from Last 3 Months Insurance MEDICARE PART A AND B [facility] MEDICARE PART A AND B [facility] Care Teams Air Tucker Relationship Specialty Start Date End Date Martin Tejeda MD [address] [place] [address] PCP - General Internal Medicine 11/11/23
--- OUTSIDE RECORDS SUMMARY | 2024-08-14 10:46 | XMS_ITS | Encounter Summary ---
Author Organization [facility] Address [address] [place] [address] Phone Care Team Providers Care Sewer Digger Name Role Phone Martin Tejeda MD Primary Care Provider [phone] Reason for Visit * Reason Onset Date Comments Med Management 07/31/2024 Encounter Details Date Type Department Care Team (Late st Contact Info) Description 07/31/2024 Telephone [facility] Dermatology [address] [facility] [address] [place] [address] Farhad Arriola MD [address] [address] Med Management Social History Tobacco Use Types Packs/Day Years Used Date Smoking Tobacco: Former Cigarettes Smokeless Tobacco: Former Sex and Gender Information Value Date Recorded Sex Assigned at Not on file 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 calls to inform Dr Arriola that pt came in to sampler pickup dexAMETHasone oralliquid 0.5 mg/5 mL. He told the pharmacist that he's using it QID and that the prescribed amount will not last 30 days. Pharmacy requesting a higher quantity Please resend if applicable documented in this encounter Plan of Treatment Not on file documented as of this encounter Visit Diagnoses Not on filedocumented in this encounter Care Teams Sewer Digger Relationship Specialty Start Date End Date Martin Tejeda MD PCP - General 03/09/17 documented as of this encounter
--- OUTSIDE RECORDS SUMMARY | 2024-08-14 10:47 | XMS_ITS | CONTINUITY OF CARE DOCUMENT ---
Author Name marni, marni Address Unknown Organization [facility] Address [address] [place] [address] Phone [phone] Care Team Providers Care Airline Ticket Agent Name Role Phone Domenic SLATER, Wood Unavailable [phone] Martin Tejeda MD Unavailable Martin Tejeda MD Unavailable [phone] PROBLEMS Condition Status Date Provider Notes Sinus [...] In-person encounter Office Visit Wood Sheth MD [place] [facility] Pedal edema - In-person encounter Office Visit Wood Sheth MD [place] [facility] - In-person encounter Office Visit Wood Sheth MD [place] [facility] - In-person encounter Office Visit Wood Sheth MD [place] [facility] Abdominal aortic aneurysm - 3.7 cm on AA A scan 05/2022Sinus tachycardiaSnoringAtrial fib paroxysmal on XArelto - In-person encounter Office Visit Wood Sheth MD [place] [facility] HTN--echo ef 60%, mild MR, bdomi nal aortic aneurysm - 3.7 cm on AAA scan 05/2022 - In-person encounter Office Visit Erum Villavicencio MD [place] [facility] SARS-associated coronavirus - In-person encounter Office Visit Wood Sheth MD [place] [facility] - In-person encounter Office Visit Wood Sheth MD [place] [facility] Abdominal aortic aneurysm - 3.7 cm on AA A scan 05/2022 - In-person encounter Office Visit Wood Sheth MD [place] [facility] varicose veins - In-person encounter Office Visit Wood Sheth MD [place] [facility] Preoperative cardiovascular examination - In-person encounter Office Visit Wood Sheth MD [place] [facility] Abdominal aortic aneurysm - 3.7 cm on AA A scan 05/2022 - In-person encounter Office Visit Wood Sheth MD [facility] Abdominal aortic aneurysm - 3.7 cm on AA A scan 05/2022 - In-person encounter Office Visit Wood Sheth MD [facility] - In-person encounter Office Visit Wood Sheth MD [facility] HTN--echo ef 60%, mild MR, 07/2021HyperlipidemiaAbdominal aortic aneurysm - 3.7 cm on AAA scan 05/2022Hx of alcoholismHx of tobacco useCOPDHyponatremiaHyperthyroidismHistory of left iliac thrombusSyncope VITAL SIGNS Date Observation Value Provider Body Mass Index (Ratio) 25.08 kg/m2 Brody Sheth MD blood pressure, diastolic 70 mm[Hg] omas Poonam blood pressure, systolic 110 mm[Hg] [facility] Poonam height E&M 70 [in_i] Shorty Poonam weight E&M 174.8 [lb_av] [facility] Body Mass Index (Ratio) 24.53 kg/m2 Brody Sheth MD blood pressure, cuff size regular Shiraz et blood pressure, diastolic 86 mm[Hg] [facility], systolic 130 mm[Hg] [facility] pulse rate 73 /min Tom respiratory rate E&M 12 /min [facility] oxygen saturation, oximetry 98 % [facility] weight E&M 171 [lb_av] [facility] y height E&M 70 [in_i] [facility] y Body Mass Index (Ratio) 23.82 kg/m2 Brody Sheth MD blood pressure, cuff size regular Ke rri Gruenenfeldlynda blood pressure, diastolic 84 mm[Hg] Ke rri Gruenenfelder blood pressure, systolic 150 mm[Hg] Marlen Montalvo Inhaled O2 3 L/min Parul harveyer oxygen saturation, oximetry 96 % Parul Connorsyonglynda respiratory rate E&M 14 /min Parul gelleryong pulse rate 77 /min Parul Murray [facility] weight E&M 166 [lb_av] Parul Murray [facility] height E&M 70 [in_i] Parul Murray [facility] Body Mass Index (Ratio) 24.10 kg/m2 Brody [...] er height E&M 70 [in_i] Parul Janaynenfe [facility] Body Mass Index (Ratio) 24.25 kg/m2 Brody Sheth MD blood pressure, cuff size regular Ke rri Gruenenfeld blood pressure, diastolic 70 mm[Hg] Ke rri Gruenenfelder blood pressure, systolic 120 mm[Hg] Ker ri Antwanuenenfeldlynda oxygen saturation, oximetry 95 % Parul Gruenenfyousuf respiratory rate E&M 16 /min Parul G ruenenfelder pulse rate 74 /min Parul Gruenenfe er weight E&M 169 [lb_av] Parul Gruenenfdelia [facility] height E&M 70 [in_i] Parul Gruenenfe [facility] Body Mass Index (Ratio) 23.39 kg/m2 Brody Sheth MD blood pressure, diastolic 82 mm[Hg] To queta Weston blood pressure, systolic 117 mm[Hg] Glenn Weston oxygen saturation, oximetry 93 % Tons Weston pulse rate 74 /min Tons Weston weight E&M 163 [lb_av] Tonsha Weston height E&M 70 [in_i] [facility] Weston Body Mass Index (Ratio) 22.81 [...] Fely Austen respiratory rate E&M 16 /min Fely V oss weight E&M 160 [lb_av] Fely [...] victor Henderson oxygen saturation, oximetry 93 % [facility] respiratory rate E&M 16 /min [facility] pulse rate 83 /min [facility] weight E&M 155 [lb_av] [facility] height E&M 70 [in_i] [facility] Body Mass Index (Ratio) 22.09 kg/m2 Brody Sheth MD blood pressure, diastolic 78 mm[Hg] Elias Olivares blood pressure, systolic 118 mm[Hg] [facility] live [facility] pulse rate 76 /min [facility] oxygen saturation, oximetry 97 % [facility] respiratory rate E&M 16 /min [facility] weight E&M 154 [lb_av] [facility] height E&M 70 [in_i] [facility] Body Mass Index (Ratio) 21.52 kg/m2 Brody Sheth MD blood pressure, diastolic 80 mm[Hg] Brent isty [place] blood pressure, systolic 114 mm[Hg] Mirella Guerrero blood pressure, cuff size regular Brent israndolph Greenbergby oxygen saturation, oximetry 93 % Fabby Cesar respiratory rate E&M 17 /min Fabby [place] pulse rate 80 /min Fabby Cesar blood pressure, resting Yes Eric Guerrero height E&M 70 [in_i] Fabby [place] weight E&M 150 [lb_av] Fabby Guerrero ALLERGIES [...] 3.5-5.2 8 sodium, serum 139 mmol/L [employer] [phone]/01/1 8 urea nitrogen/creatini ne ratio, serum 16 [...] 2 bottles simvastatin 20 mg tablet active Frderick Cottrell Xarelto 20 mg tablet completed Take [...] Parul Connorsyousuf cigarette use yes Parul Connors [facility] smoking status Former smoker [facility] social history E&M S moking History: [...] pks qd Tonsha Weston cigarette use [facility] smoker Tons Weston social history reviewed E&M revi ewed - no changes required Wood Sheth MD social history E&M S moking History: Anjali wilson is a former smoker. Wood Sheth MD cigarette use yes Vicki Salter ms smoking status Former smoker Vicki Cast hel[place] social history E&M S moking History: Anjali [...] tot al pack/day 3 pks qd Wood Sheth MD cigarette use yes Wood Kelly smoking [...] drugs? (CAGE substance use question #3) N [facility] In the past 3 months , has anyone annoyed you by telling you to cut down or stop using drugs? (CAGE substance use question #2) N [facility] In the past 3 months , have you felt you should cut down or stop using drugs?(CAGE substance use question #1) N [facility] alcohol use, average drinks per day 4+ [facility] alcohol use, type beer Wilder In gram alcohol use yes [facility] number of years as a smoker 43 a [facility] smoking history, tot al pack/day 3 pks qd [facility] cigarette use yes [facility] smoking status Former smoker [facility] social history reviewed E&M revi ewed - no changes required Wood Sheth MD social history E&M S moking History: Anjali wilson is a former smoker. Wood Sheth MD smoking status Former smoker Wood Sehth MD number of grandchildren Wood Sheth MD [...] Payer name Policy type / Coverage type [employer] red libertarian ID [id number] [place] MED[place] Medicare [id number] ADVANCE DIRECTIVES Name Date DISCUSSED - NO DECISION MADE TREATMENT PLAN Date Name Performer [id number],SFredrick i [id number],SFredrick i [id number],SFredrick i [id number],SFredrick i [id number],SFredrick i [id number],S, Wood Sheth MD [id number],BWood MD [id number],B, Wood Sheth MD [id number],B, Wood Sheth MD [id number],BWood MD [id number],B, Wood Sheth MD [id number],B, Wood Sheth MD [id number],SWood MD [id number],BWood MD [id number],W, Wood Sheth MD [id number],SWood MD [id number],S, Fredrick Pfeifferza i [id number],S, Fredrick Manuelmedza i [id number],B, Fredrick Manuelmedza i [id number],S, Fredrick Manuelmedza i [id number],S, Fredrick Manuelmedza i [id number],C,B Ps at home are well controlled. H is updated medication list for this problem includes: Atenolol 100 Mg Tablet (Atenolol) ..... 1 tablet every morning Amlodipine 5 Mg Tablet (Amlodipine) ..... Take 1 tablet by mouth once daily BP today: 140/90 P rior BP: 120/70 (06/14/2020) Labs Reviewed: C reat: 0.72 (09/18/2017) Sommer Johnson [id number],CO melinda Villavicencio MD [id number],C, H is updated medication list for this problem includes: Atenolol 100 Mg Tablet (Atenolol) ..... 1 tablet every morning Amlodipine 5 Mg Tablet (Amlodipine) ..... Take 1 tablet by mouth once daily BP today: 140/90 P rior BP: 120/70 (06/14/2020) Labs Reviewed: C reat: 0.72 (09/18/2017) Erum Villavicencio MD [id number],S,Moderna vacci nated x3 Erum Villavicencio MD [id number],S,P rior CT scan M ild aneurysma.1 dilatation [...] Signed By: Anna Boudreaux MD 2 09:18:20 GUARD IMMIGRATION C C: Wood Sheth MD, [facility] Erum Villavicencio MD [id number],S,N o recent PFTs.Needs to have PFTs with [...] Fredrick Ahmedzai Cardiology Fredrick Ahmedzai Cardiology:BPs at [facility] are well controlled. H is updated medication [...] lectronically Signed By: Anna Boudreaux MD 09:18:20 GUARD IMMIGRATION C C: Wood Sheth MD, FACC Erum [...] an d pelvis Complete Echo DLCO - 98395 FRC - 16508 FVC - 24319 Aorta Duplex Ultraso und Aorta Duplex Ultraso [...] mpleted EKG Wood Sheth MD completed SNOMED-CT: [id number] Current Medications Documented Wood Sheth MD completed Stress EKG Erum Villavicencio MD completed Regadenoson, 4 units Erum lackey MD completed Cardiolite, 2 units Erum pillai MD completed SPECT Images Erum Villavicencio MD completed EKG Wood Sheth MD completed SNOMED-CT: [id number] Current Medications Documented Wood Sheth MD completed
--- OUTSIDE RECORDS SUMMARY | 2024-08-14 10:47 | XMS_ITS | Clinical Summary ---
Author Organization [facility] [address] Address [address] [place] [address] Care Team Providers Care Prototype Special Build Name Role Phone Martin Tejeda MD Primary Care Provider [phone] Allergies No known active allergies Medications multivitamin-m inerals-lutein (Multivitamin 50 Plus) tablet 1 tablet DAILY (route: oral) 3 Active multivit with minerals/lutei n (MULTIVITAMIN 50 PLUS ORAL) 1 Active amLODIPine [...] tablet Xarelto 20 mg tablet 5 Active ipratropium-al buteroL (DUO-NEB) 0.5-2.5 mg/3 mL nebulizer solution USE 1 AMPULE IN NEBULIZER 4 TIMES DAILY Active budesonide-gly copyr-formoter ol (Breztri Aerosphere) 160-9-4.8 mcg/actuation inhaler 2 puff 2 TIMES DAILY (route: inhalation) 1 Active albuterol 2.5 mg /3 mL (0.083 %) nebulizer solution USE 1 VIAL IN NEBULIZER THREE TIMES DAILY NEEDED Active predniSONE (DELTASONE) 20 mg tablet Prednisone 20mg, take 3 po qAM x 7 days, then take 2 po qAM x 7 days, then take 1 po every day until seen in clinic. Disp 49. 0 RF. 49 tablet 5 Active dexAMETHasone oral liquid 0.5 mg/5 mL Swish 5ml in mouth twice daily and then spit. Do not swallow. 350 mL 3 5 Active dexAMETHasone oral liquid 0.5 mg/5 mL Swish 5ml in mouth twice daily and then spit. Do not swallow. 350 mL 1 5 08/07/19 Discontinu ed(Reorder ) Active Problems Problem Noted Date Diagnosed Date Pemphigus vulgaris 07/28/2024 Encounters Date Type Department Care Team Description 08/11/2024 Telephone [facility] Dermatology [address] [place] [address] Outpatient Health [address] [place] [address] Farhad Arriola MD dosing instructions 08/10/[address] [place] [phone] Joelle Rosenbaum RN 08/06/2024 Results Follow-Up [facility] Dermatology [address] [place] [address] Outpatient Health [address] [place] [address] Farhad Arriola MD 08/04/2024 Telephone [facility] Dermatology [address] [place] [address] [address] [place] [phone] Kane Leal RMA Med Refill (/) 07/31/2024 3:17 PM CDT - 07/31/2024 11:59 PM CDT Hospital Encounter [address] [address] High risk medication use Discharge Disposition: Discharge to home or self care 07/31/2024 10:00 AM CDT Lab [facility] Outpatient Lab at [address] [address] Pemphigus vulgaris (HCC) (Primary Dx) 07/31/2024 Telephone [facility] Dermatology [address] [place] [address] [address] [place] [address] Farhad Arriola MD Med Management 07/30/2024 Orders Only [facility] Dermatology [address] [facility] [address] [place], [place] [phone] Kane Leal, RMA High risk medication use (Primary Dx) 07/30/2024 Orders Only [facility] Dermatology [facility] 7th [place] [address] [place] [address] Farhad Arriola MD 07/30/2024 Orders Only [facility][1] [address] [facility] [address] [place] [address] Joelle Rosenbaum RN 07/28/2024 Orders Only [facility] Dermatology [address] [place] [address] [address] [place] [phone] Kane Leal, RMA 07/28/2024 Orders Only [facility] Dermatology [address] [place] [address] [address] [place] [phone] Kane Leal, RMA Rash and other nonspecific skin eruption (Primary Dx) 07/28/2024 Orders Only [facility] Dermatology [address] [place] [address] [address] [place] [phone] Kane Leal, RMA 07/28/2024 Results Follow-Up [facility] Dermatology [address] [place] [address] Outpatient Health [address] [place] [phone] Farhad Arriola MD 07/28/2024 Results Follow-Up [facility] Dermatology [address] [place] [address] Outpatient Health [address] [place] [phone] Farhad Arriola MD 07/28/2024 Orders Only [facility] Dermatology [address] [place] [address] Outpatient Health [address] [place] [phone] Farhad Arriola MD 07/27/2024 Telephone [facility] Dermatology [address] [place] [address] [address] [place] [phone] Farhad Arriola MD Medication Problem 07/16/2024 Orders Only [facility] [address] [place] [address] Farhad Arriola MD Rash 07/15/2024 1:20 PM TOOL GRINDER OPERATOR SURFACE Office Visit [facility] Department of Otolaryngology Head-Neck Division [address] [facility] [address] [place] [address] Anai Anthony PA Oral mucosal lesion (Primary Dx); Oral thrush; Bilateral impacted cerumen 07/15/2024 11:50 AM TOOL GRINDER OPERATOR SURFACE Lab [facility] [address] [facility] [place] [address] Rash 07/15/2024 10:00 AM TOOL GRINDER OPERATOR SURFACE Office Visit [facility] Dermatology [address] [facility] [address] [place] [phone] Farhad Arriola MD Rash (Primary Dx); Mucositis 07/15/2024 Orders Only [facility] [address] [place] [address] Farhad Arriola MD 07/10/2024 Telephone [facility] ([facility] - [facility] E[facility] [address] [facility] 11th [place] [address] [place] [address] Rebecca Morgan MS from Last 3 Months Social History Tobacco Use Types Packs/Day Years Used Date Smoking Tobacco: Former Cigarettes Smokeless Tobacco: Former Tobacco Cessation:Counseling Given: Not Answered Sex and Gender Information Value Date Recorded Sex Assigned at Not on file Legal Sex Male 12:15 PM TOOL GRINDER OPERATOR SURFACE Gender Identity Not on file Sexual Orientation Not on file Obstetrics History Last Filed Vital Signs Vital Sign Reading Time Taken Comments Blood Pressure 145/105 03/14/2017 11:51 AM CDT Pulse 82 03/14/2017 11:51 AM CDT Temperature - - Respiratory Rate - - Oxygen Saturation - - Inhaled Oxygen Concentration - - Weight 62.6 kg (138 lb) 07/15/2024 1:14 PM TOOL GRINDER OPERATOR SURFACE Height 180.3 cm (5' 10.98 ) 03/11/2017 [...] other nonspecific skin eruption BLOOD MISC TO JEWELL Routine 07/15/2024 12 :00 PM TOOL GRINDER OPERATOR SURFACE SURGICAL PATHOLOGY Routine 07/15/2024 12 :00 AM TOOL GRINDER OPERATOR SURFACE from Last 3 Months Results * Hepatitis panel, acute Blood (07/31/2024 12:00 PM CDT) Hep A IgM Nonreactive Nonreactive Comment: Interpretive Data: If Hep A IgM Ab is reported as Equivocal, a new sample should be drawn in two weeks for testing. Current interpretive data was last revised on 19. Hep B core IgM Nonreactive Nonreactive [facility] Comment: Interpretive Data If HepB Core IgM Ab is reported as Equivocal, a new sample should be drawn in two weeks for testing. Current interpretive data was last revised on 19. Hep C Ab Nonreactive Nonreactive [facility] Comment: Interpretive Data Nonreactive: Antibodies to HCV [...] last revised on 2019. HepBsAg Nonreactive Nonreactive [facility] Blood 07/31/2024 12:0 0 PM CDT 07/31/2024 4:00 PM CDT [facility] Carmine Arriola MD LAB MICROBIOLOGY - [facility] L ORDERABLES Final Result [facility] [address] Department [place] [address] * TB test, quantiferon gold (07/30/2024 11:27 AM CDT) [facility] QuantiFERON Incubation Incubation performed. [facility] - 01 [...] - 08/03/2024 3:09 PM CDT Performed at: [address] [id number] Program Professional: Brando Kang PhD, Phone: [phone] Farhad Arriola MD LAB BLOOD ORDERABLES Landy l Result Performing Organization Address [facility] de Phone Number [facility] - * Specimen Status Report (07/29/2024 11:25 AM CDT) Pathologist [facility] Specimen Status Report Comment [facility] - 01 [...] - 07/30/2024 8:12 AM CDT Performed at: [address] [id number] Program Professional: Brando Kang PhD, Phone: [phone] Farhad Arriola MD LAB BLOOD ORDERABLES Landy l Result Performing Organization Address [facility] de Phone Number [facility] - * HIV 1/2 Antibody plus p24 Antigen Blood (07/29/2024 11:25 AM CDT) Pathologist [facility] HIV 1/2 Ab + p24 Ag Non Reactive Non Reactive [facility] - 01 Comment: HIV-1/HIV-2 antibodies and HIV-1 p24 antigen were NOT detected. There is no laboratory evidence of HIV infection. HIV Negative Blood 07/29/2024 11:2 5 AM CDT 07/29/2024 Narrative [facility] - 07/30/2024 8:12 AM CDT Performed at: 01 - [address] [id number] Program Professional: Brando Kang PhD, Phone: [phone] Farhad Arriola MD LAB MICROBIOLOGY - GENERA L ORDERABLES Final Result [facility] - 01 * (ABNORMAL) BLOOD MISC TO JEWELL (07/15/2024 12:00 PM TOOL GRINDER OPERATOR SURFACE) Test name, chem DSGAB,BHANU MOGLEIN 1 AND 3, SERUM(PEM PHIGUS) [place] ref Lab Misc See Footnote( A) [facility] Comment: Test Result Flag Unit RefValue Desmoglein [...] This test has been modified from the hooker inspector's instructions. Its performance characteristics were determined by [facility] in a manner consistent with CLIA requirements. This test has not been cleared or approved by the U.S. Food and Drug Administration. Test Performed by: [address] [address] Program Professional: Tyler Blanco Ph.D.; CLIA# [id number] Blood 07/15/2024 12:0 0 PM TOOL GRINDER OPERATOR SURFACE 07/15/2024 12:56 PM TOOL GRINDER OPERATOR SURFACE us Farhad Arriola MD LAB BLOOD ORDERABLES Landy trejo Result Performing Organization Address City/State/[facility] Co de Phone Number [facility] Department [place] [address] [facility] * Surgical pathology (07/15/2024 12:00 AM TOOL GRINDER OPERATOR SURFACE) Skin/Oral for IF (immunofluorescen ce) 07/15/2024 07/16/2024 9:37 AM TOOL GRINDER OPERATOR SURFACE Narrative 07/17/2024 2:18 PM TOOL GRINDER OPERATOR SURFACE EPIC results best viewed via link to PDF [facility] Dermatopathology Center [facility] [facility], [address], [place] [address] [email or web address] Note to Patients: This report may [...] 07/17/2024 Submitting Physician Information: Farhad Arriola M.D. [address] [place] [address], [address] [place] [address], DERMATOPATHOLOGY REPORT RESULTS DIAGNOSIS: A. SKIN, RIGHT [...] dh/dxv ICD-9 ZSD.1387 Clerical Data A; 1204, 39688, 16468, 56119, 64645 B; 34317 The characteristics of special, immunohistochemical, and immunofluorescence stains and in-situ hybridization tests performed by the [facility] were deemed acceptable in ongoing aircraft quality control inspector measures and in compliance with regulations drawn from the Clinical Laboratory Improvement Act xz6608 (CLIA '88). Control reactions for all stains performed were deemed adequate and appropriate by a pathologist prior to evaluation of patient tissue. Some diagnoses were rendered with the assistance of laboratory-developed tests utilizing analyte-specific reagents; the performance characteristic of these tests were determined by [facility] and are not cleared or approved by the [place] Food an Drug administration. Laboratory developed test may only be performed in a facility that is certified by the [facility] as a high-complexity laboratory under CLIA '88. These tests are used for clinical purposes and are not investigational. Farhad Arriola MD LAB PATHOLOGY ORDERABLES Final Result from Last 3 Months [place] [address] [facility] MEDICARE [facility] MEDICARE [facility] Care Teams Prototype Special Build Relationship Specialty Start Date End Date Martin Tejeda MD PCP - General 03/09/17
--- OUTSIDE RECORDS SUMMARY | 2024-08-14 10:47 | XMS_ITS | Encounter Summary ---
Author Organization [facility] Address [address] [place] [address] Phone Care Team Providers Care Slag Wheeler Name Role Phone Martin Tejeda MD Primary Care Provider [phone] Encounter Details Date Type Department Care Team (Late st Contact Info) Description 07/28/2024 Results Follow-Up [facility] Dermatology [address] [facility] Outpatient Health [address] [place] [address] Farhad Arriola MD [address] [facility] [address] [place] [id number] Social History Tobacco Use Types Packs/Day Years Used Date Smoking Tobacco: Former Cigarettes Smokeless Tobacco: Former Sex and Gender Information Value Date Recorded Sex Assigned at Not on file Legal Sex Male 12:15 PM APPLIER Gender Identity Not on file Sexual Orientation [...] on filedocumented in this encounter Care Teams Slag Wheeler Relationship Specialty Start Date End Date Martin Tejeda MD PCP - General 03/09/17 documented as of this encounter
--- OUTSIDE RECORDS SUMMARY | 2024-08-14 10:47 | XMS_ITS | Encounter Summary ---
Author Organization [facility] Address [address] [place] [address] Phone Care Team Providers Care Amphibious Operations Officer Name Role Phone Martin Tejeda MD Primary Care Provider [phone] Encounter Details Date Type Department Care Team (Late st Contact Info) Description 07/28/2024 Results Follow-Up [facility] [address] [facility] [address] [place] [address] Farhad Arriola MD [address] [place] [id number] Social History Tobacco Use Types Packs/Day Years Used Date Smoking Tobacco: Former Cigarettes Smokeless Tobacco: Former Sex and Gender Information Value Date Recorded Sex Assigned at Not on file Legal Sex Male 12:15 PM METALLIC YARN SLITTING 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
--- OUTSIDE RECORDS SUMMARY | 2024-08-14 10:47 | XMS_ITS | Encounter Summary ---
Author Organization [facility] Address [address] [place] [address] Phone Care Team Providers Care Plant Utilities Engineer Name Role Phone Martin Tejeda MD Primary Care Provider [phone] Encounter Details Date Type Department Care Team (Late st Contact Info) Description 08/06/2024 Results Follow-Up [facility] [address] [facility] [address] [place] [phone] Farhad Arriola MD [address] [facility] [address] [place] [address] Social History Tobacco Use Types Packs/Day Years Used Date Smoking Tobacco: Former Cigarettes Smokeless Tobacco: Former Sex and Gender Information Value Date Recorded Sex Assigned at Not on file Legal Sex Male 12:15 PM NUTRITIONAL CHEMIST Gender Identity Not on file Sexual Orientation Not on file documented as of this encounter Plan of Treatment Not on file documented as of this encounter Visit Diagnoses Not on filedocumented in this encounter Care Teams Plant Utilities Engineer Relationship Specialty Start Date End Date Martin Tejeda MD PCP - General 03/09/17 documented as of this encounter
--- OUTSIDE RECORDS SUMMARY | 2024-08-14 10:47 | XMS_ITS | Encounter Summary ---
Author Organization [facility] Address [address] [place] [address] Phone Care Team Providers Care Blaster Helper Name Role Phone Martin Tejeda MD Primary Care Provider [phone] Reason for Visit * Reason Onset Date Comments Medication Problem 07/27/2024 Encounter Details Date Type Department Care Team (Late st Contact Info) Description 07/27/2024 Telephone [facility] [address] [facility] [address] [place] [address] Farhad Arriola MD [address] [address] Medication Problem Social History Tobacco Use Types Packs/Day Years Used Date Smoking Tobacco: Former Cigarettes Smokeless Tobacco: Former Sex and Gender Information Value Date Recorded Sex Assigned at Not on file Legal Sex Male 12:15 PM FEDERAL AID COORDINATOR Gender Identity Not on file Sexual Orientation [...] on filedocumented in this encounter Care Teams Blaster Helper Relationship Specialty Start Date End Date Martin Tejeda MD PCP - General 03/09/17 documented as of this encounter
--- OUTSIDE RECORDS SUMMARY | 2024-08-14 10:47 | XMS_ITS | Referral Summary ---
Author Organization [facility] [address] Address [address] [place] [address] Care Team Providers Care Medical Scheduler Name Role Phone Martin Tejeda MD Primary Care Provider Encounters Date Type Department Care Team Description 08/11/2024 Telephone [facility] [address] [place] [address] Outpatient Health [address] [place] [address] Farhad Arriola MD dosing instructions 08/10/[address] [place] [phone] Joelle Rosenbaum RN 08/06/2024 Results Follow-Up [facility] [address] [place] [address] Outpatient Health [address] [place] [address] Farhad Arriola MD 08/04/2024 Telephone [facility] [address] [place] [address] [address] [place] [address] Kane Leal RMA Med Refill (/) 07/31/2024 3:17 PM CDT - 07/31/2024 11:59 PM CDT Hospital Encounter [place] [phone] [place] [address] High risk medication use Discharge Disposition: Discharge to home or self care 07/31/2024 Telephone [facility] [address] [place] [address] [address] [place] [address] Farhad Arriola MD Med Management 07/31/2024 10:00 AM CDT Lab [facility] Outpatient Lab at [address] [phone] Pemphigus vulgaris (HCC) (Primary Dx) 07/30/2024 Orders Only [facility] [address] [facility] [address] [place] [address] Kane Leal RMA High risk medication use (Primary Dx) 07/30/2024 Orders Only [facility] [address] [facility] 7th [place] [address] [place] [address] Farhad Arriola MD 07/30/2024 Orders Only [facility] [address] [facility] [address] [place] [address] Joelle Rosenbaum RN 07/28/2024 Orders Only [facility] [address] [place] [address] [address] [place] [address] Kane Leal RMA 07/28/2024 Orders Only [facility] [address] [place] [address] [address] [place] [address] Kane Leal RMA Rash and other nonspecific skin eruption (Primary Dx) 07/28/2024 Orders Only [facility] [address] [place] [address] [address] [place] [address] Kane Leal RMA 07/28/2024 Results Follow-Up [facility] [address] [place] [address] Outpatient Health [address] [place] [phone] Farhad Arroila MD 07/28/2024 Results Follow-Up [facility] [address] [place] [address] Outpatient Health [address] [place] [phone] Farhad Arriola MD 07/28/2024 Orders Only [facility] [address] [place] [address] Outpatient Health [address] [place] [phone] Farhad Arriola MD 07/27/2024 Telephone [facility] [address] [facility] [address] [place] [address] Farhad Arriola MD Medication Problem 07/16/2024 Orders Only [facility] [address] [place] [address] Farhad Arriola MD Rash 07/15/2024 Orders Only [facility] [address] [place] [address] Farhad Arriola MD 07/15/2024 11:50 AM GAS TECHNICIAN Lab [facility] [address] [facility] [place] [address] Rash 07/15/2024 1:20 PM GAS TECHNICIAN Office Visit [facility] Department of Otolaryngology Head-Neck Division [address] [facility] Floor 5 [place] [address] Anai Anthony PA Oral mucosal lesion (Primary Dx); Oral thrush; Bilateral impacted cerumen 07/15/2024 10:00 AM GAS TECHNICIAN Office Visit [facility] [address] [facility] Outpatient Health [address] [place] [address] Farhad Arriola MD Rash (Primary Dx); Mucositis 07/10/2024 Telephone [facility] ([facility] - [facility] [address] [facility] 11th [place] [address] [place] [address] Rebecca Morgan MS from Last 3 Months Allergies No known active allergies Medications multivitamin-m [...] not swallow. 350 mL 1 5 08/07/19 25 Discontinu ed(Reorder ) Active Problems Problem Noted Date Diagnosed Date Pemphigus vulgaris 07/28/2024 Social History Tobacco Use Types Packs/Day Years Used Date Smoking Tobacco: Former Cigarettes Smokeless Tobacco: Former Tobacco Cessation:Counseling Given: Not Answered Sex and Gender Information Value Date Recorded Sex Assigned at Not on file Legal Sex Male 12:15 PM GAS TECHNICIAN Gender Identity Not on file Sexual Orientation Not on file Last Filed Vital Signs Vital Sign Reading Time Taken Comments Blood Pressure 145/105 03/14/2017 11:51 AM CDT Pulse 82 03/14/2017 11:51 AM CDT Temperature - - Respiratory Rate - - Oxygen Saturation - - Inhaled Oxygen Concentration - - Weight 62.6 kg (138 lb) 07/15/2024 1:14 PM GAS TECHNICIAN Height 180.3 cm (5' 10.98 ) 03/11/2017 [...] other nonspecific skin eruption BLOOD MISC TO [place] Routine 07/15/2024 12 :00 PM GAS TECHNICIAN SURGICAL PATHOLOGY Routine 07/15/2024 12 :00 AM GAS TECHNICIAN from Last 3 Months Results * Hepatitis panel, acute Blood (07/31/2024 12:00 PM CDT) Hep A IgM Nonreactive Nonreactive Comment: Interpretive Data: If Hep A IgM Ab is reported as Equivocal, a new sample should be drawn in two weeks for testing. Current interpretive data was last revised on 19. Hep B core IgM Nonreactive Nonreactive [facility] Comment: Interpretive Data If HepB Core IgM Ab is reported as Equivocal, a new sample should be drawn in two weeks for testing. Current interpretive data was last revised on 19. Hep C Ab Nonreactive Nonreactive [facility] Comment: Interpretive Data Nonreactive: Antibodies to [...] last revised on 2019. HepBsAg Nonreactive Nonreactive [facility] Blood 07/31/2024 12:0 0 PM CDT 07/31/2024 4:00 PM CDT us Farhad Arriola MD LAB MICROBIOLOGY - GENERA L ORDERABLES Final Result [facility] [address] [place] [address] * TB test, quantiferon gold (07/30/2024 11:27 AM CDT) [facility] QuantiFERON Incubation Incubation performed. [facility] - 01 [...] - 08/03/2024 3:09 PM CDT Performed at: [address] [place] [id number] Reach Lift Truck Driver: Brando Kang PhD, Phone: [phone] us Farhad Arriola MD LAB BLOOD ORDERABLES Landy l Result [facility] - 01 * Specimen Status Report (07/29/2024 11:25 AM CDT) [facility] Specimen Status Report Comment [facility] - [...] - 07/30/2024 8:12 AM CDT Performed at: [address] [place] [id number] Reach Lift Truck Driver: Brando Kang PhD, Phone: [phone] us Farhad Arriola MD LAB BLOOD ORDERABLES Landy l Result Performing Organization Address [facility]/ZIP Co de Phone Number [facility] - * HIV 1/2 Antibody plus p24 Antigen Blood (07/29/2024 11:25 AM CDT) [facility] HIV 1/2 Ab + p24 Ag Non Reactive Non Reactive [facility] - 01 Comment: HIV-1/HIV-2 antibodies and HIV-1 p24 antigen were NOT detected. There is no laboratory evidence of HIV infection. HIV Negative Blood 07/29/2024 11:2 5 AM CDT 07/29/2024 Narrative [facility] - 07/30/2024 8:12 AM CDT Performed at: [address] [place] [id number] Reach Lift Truck Driver: Brando Kang PhD, Phone: [phone] Farhad Arriola MD LAB MICROBIOLOGY - GENERA L ORDERABLES Final Result Performing Organization Address City/[facility]/ZIP Co de Phone Number [facility] - * (ABNORMAL) BLOOD MISC TO [place] (07/15/2024 12:00 PM GAS TECHNICIAN) Pathologist [facility] Test name, chem DSGAB,BHANU MOGLEIN 1 AND 3, SERUM(PEM PHIGUS) [facility] Misc See Footnote( A) LEXUS KEYES [...] This test has been modified from the publicity agent's instructions. Its performance characteristics were determined by [facility] in a manner consistent with CLIA requirements. This test has not been cleared or approved by the U.S. Food and Drug Administration. Test Performed by: [facility] [place] [address] Reach Lift Truck Driver: Tyler Blanco Ph.D.; CLIA# [id number] Blood 07/15/2024 12:0 0 PM GAS TECHNICIAN 07/15/2024 12:56 PM GAS TECHNICIAN Farhad Arriola MD LAB BLOOD ORDERABLES Landy trejo Result [facility] Department [place] [address] [facility] * Surgical pathology (07/15/2024 12:00 AM GAS TECHNICIAN) Skin/Oral for IF (immunofluorescen ce) 07/15/2024 07/16/2024 9:37 AM GAS TECHNICIAN Narrative 07/17/2024 2:18 PM GAS TECHNICIAN EPIC results best viewed via link to PDF [facility] [address] [place] [address], [address], [place] [address] [email or web address] Note to Patients: This report may contain [...] 07/17/2024 Submitting Physician Information: Farhad Arriola M.D. [address] [facility], [address] [place] [id number], DERMATOPATHOLOGY REPORT RESULTS DIAGNOSIS: A. SKIN, RIGHT [...] dh/dxv ICD-9 ZSD.1387 Clerical Data A; 1204, 20789, 31171, 60936, 18341 B; 67280 The characteristics of special, immunohistochemical, and immunofluorescence stains and in-situ hybridization tests performed by the [facility] were deemed acceptable in ongoing plant quality manager measures and in compliance with regulations drawn from the Clinical Laboratory Improvement Act ak2439 (CLIA '88). Control reactions for all stains performed were deemed adequate and appropriate by a pathologist prior to evaluation of patient tissue. Some diagnoses were rendered with the assistance of laboratory-developed tests utilizing analyte-specific reagents; the performance characteristic of these tests were determined by [facility] and are not cleared or approved by the [place] Food an Drug administration. Laboratory developed test may only be performed in a facility that is certified by the [facility] as a high-complexity laboratory under CLIA '88. These tests are used for clinical purposes and are not investigational. Farhad Arriola MD LAB PATHOLOGY ORDERABLES Final Result from Last 3 Months Insurance MEDICARE [facility] MEDICARE [facility] MEDICARE [facility] Care Teams Medical Scheduler Relationship Specialty Start Date End Date Martin Tejeda MD PCP - General 03/09/17
--- OUTSIDE RECORDS SUMMARY | 2024-08-14 10:47 | XMS_ITS | Clinical Summary ---
Author Organization [facility] Address [address] [place] [address] Care Team Providers Care Chainstitch Elastic Attacher Name Role Phone None, Provider MD Primary Care Provider Unavaila ble Allergies No known active allergies Encounters Date Type Department Care Team Description 07/08/2024 7:38 PM CUSTOMER SECURITY CLERK - 07/08/2024 11:59 PM CUSTOMER SECURITY CLERK Hospital Encounter [facility] [place] [address] Jermaine Burns FNP Discharge Disposition: Home or Self Care (Routine Discharge) 07/08/2024 [place] [address] Jermaine Burns FNP 06/29/2024 1:40 PM CUSTOMER SECURITY CLERK - 06/29/2024 6:49 PM CUSTOMER SECURITY CLERK Emergency [facility] [place] [address] Juan R Chino MD Throat Problem Discharge Disposition: Home or Self Care (Routine Discharge) 06/29/2024 Travel from Last 3 Months Social History Tobacco Use Types Packs/Day Years Used Date Smoking Tobacco: Never Assessed Sex and Gender Information Value Date Recorded Sex Assigned at Male 06/29/2024 12:54 PM CUSTOMER SECURITY CLERK Legal Sex Male 12:47 PM CUSTOMER SECURITY CLERK Gender Identity Not on file Sexual Orientation Not on file Last Filed Vital Signs Vital Sign Reading Time Taken Comments Blood Pressure 110/77 06/29/2024 3:57 PM CUSTOMER SECURITY CLERK Pulse 94 06/29/2024 6:48 PM CUSTOMER SECURITY CLERK Temperature 36.1 C (97 F) 06/29/2024 1:20 PM CUSTOMER SECURITY CLERK Respiratory Rate 18 06/29/2024 1:20 PM CUSTOMER SECURITY CLERK Oxygen Saturation 95% 06/29/2024 6:48 PM CUSTOMER SECURITY CLERK Inhaled Oxygen Concentration - - Weight 68 kg (150 lb) 06/29/2024 1:20 PM CUSTOMER SECURITY CLERK Height 177.8 cm (5' 10 ) 06/29/2024 1:20 PM CUSTOMER SECURITY CLERK Body Mass Index 21.52 06/29/2024 1:20 PM CUSTOMER SECURITY CLERK Plan of Treatment Health Maintenance Due Date [...] FUNGUS W/ STAIN Routine 07/08/2024 4:05 PM CUSTOMER SECURITY CLERK Candidiasis of mouth CULTURE, ANAEROBIC Routine 07/08/2024 4: 05 PM CUSTOMER SECURITY CLERK Candidiasis of mouth CULTURE, WOUND, W/GRAM STAIN Routine 07/08/2024 4:05 PM CUSTOMER SECURITY CLERK Candidiasis of mouth LACTIC ACID W REFLEX (SEPSIS) TIMED 06/29/2024 4:05 PM CUSTOMER SECURITY CLERK LACTIC ACID W REFLEX (SEPSIS) STAT 06/29/2024 1:54 PM CUSTOMER SECURITY CLERK COMPREHENSIVE METABOLIC PANEL STAT 06/29/2024 1:54 PM CUSTOMER SECURITY CLERK CBC W/DIFF AUTOMATED STAT 06/29/2024 1:54 PM CUSTOMER SECURITY CLERK from Last 3 Months Results * CULTURE FUNGUS W/ STAIN (07/08/2024 4:05 PM CUSTOMER SECURITY CLERK) SPEC DESCRIPTION MOUTH 07/08/2024 7:42 PM CUSTOMER SECURITY CLERK [facility] SPECIAL REQUESTS NO SPECIAL REQUEST 07/08/2024 7:42 PM CUSTOMER SECURITY CLERK [facility] STAIN RESULT: NO YEAST OR FUNGAL ELEMENTS SEEN 07/09/2024 7:19 AM CUSTOMER SECURITY CLERK [facility] CULTURE RESULT NO FUNGUS ISOLATED AT 4 WEEKS. 08/08/2024 1:16 PM CDT [facility] ORAL CAVITY SPECIMEN / Unknown 07/08/2024 4:05 PM CUSTOMER SECURITY CLERK 07/08/2024 7:44 PM CUSTOMER SECURITY CLERK Jermaine Burns GLASS CUTTER HELPER MICROBIOLOGY - GENERAL ORDERABL ES Final Result [facility] [address] [place] [address], [place] [phone] * CULTURE, WOUND, W/GRAM STAIN (07/08/2024 4:05 PM CUSTOMER SECURITY CLERK) SPEC DESCRIPTION MOUTH 07/08/2024 7:42 PM CUSTOMER SECURITY CLERK [facility] SPECIAL REQUESTS NO SPECIAL REQUEST 07/08/2024 7:42 PM CUSTOMER SECURITY CLERK [facility] GRAM STAIN RESULT NO WHITE BLOOD CELLS SEEN 07/09/2024 7:32 AM CUSTOMER SECURITY CLERK [facility] GRAM STAIN RESULT MODERATE EPITHELIAL CELLS SEEN 07/09/2024 7:32 AM CUSTOMER SECURITY CLERK [facility] GRAM STAIN RESULT MODERATE GRAM NEGATIVE RODS 07/09/2024 7:32 AM CUSTOMER SECURITY CLERK [facility] GRAM STAIN RESULT RARE GRAM POSITIVE COCCI 07/09/2024 7:32 AM CUSTOMER SECURITY CLERK [facility] GRAM STAIN RESULT RARE GRAM POSITIVE RODS 07/09/2024 7:32 AM [facility] CULTURE RESULT MODERATE GROWTH OF NORMAL YE PRESENT 07/10/2024 9:44 AM CUSTOMER SECURITY CLERK [facility] ORAL CAVITY SPECIMEN / Unknown 07/08/2024 4:05 PM CUSTOMER SECURITY CLERK 07/08/2024 7:43 PM CUSTOMER SECURITY CLERK Jermaine Burns GLASS CUTTER HELPER MICROBIOLOGY - GENERAL ORDERABL ES Final Result [facility] [address] [place] [address], * (ABNORMAL) CULTURE ANAEROBIC (07/08/2024 4:05 PM CUSTOMER SECURITY CLERK) SPEC DESCRIPTION MOUTH 07/08/2024 7:42 PM [facility] SPECIAL REQUESTS NO SPECIAL REQUEST 07/08/2024 7:42 PM [facility] GRAM STAIN RESULT NO WHITE BLOOD CELLS SEEN 07/09/2024 7:33 AM [facility] GRAM STAIN RESULT MODERATE EPITHELIAL CELLS SEEN 07/09/2024 7:33 AM [facility] GRAM STAIN RESULT MODERATE GRAM NEGATIVE RODS 07/09/2024 7:33 AM CUSTOMER SECURITY CLERK [facility] GRAM STAIN RESULT RARE GRAM POSITIVE COCCI 07/09/2024 7:33 AM CUSTOMER SECURITY CLERK [facility] GRAM STAIN RESULT RARE GRAM POSITIVE RODS 07/09/2024 7:33 AM [facility] CULTURE RESULT LIGHT GROWTH OF PREVOTELLA MELANINOGENICUS BETA LACTAMASE POSITIVE SUSCEPTIBILTY NOT ROUTINELY PERFORMED. SAVING ISOLATE FOR 5 DAYS. CONTACT MICROBIOLOGY DEPARTMENT IF FURTHER WORKUP IS INDICATED. (A) 07/12/2024 12:22 PM CUSTOMER SECURITY CLERK [facility] ORAL CAVITY SPECIMEN / Unknown 07/08/2024 4:05 PM CUSTOMER SECURITY CLERK 07/08/2024 7:44 PM CUSTOMER SECURITY CLERK Jermaine Barraganandrew GLASS CUTTER HELPER MICROBIOLOGY - GENERAL ORDERABL ES Final Result [facility] [address] [place] [address], [place] [phone] * LACTIC ACID W REFLEX (SEPSIS) (06/29/2024 4:05 PM CUSTOMER SECURITY CLERK) Only the most recent of2 resultswithin the time period is included. LACTIC ACID VENOUS 2.0 0.4 - 2.0 MMOL/L 06/29/2024 5:13 PM CUSTOMER SECURITY CLERK [facility] 06/29/2024 4:05 PM CUSTOMER SECURITY CLERK [facility] Final Resul t Performing Organization Address City/[facility]/ZIP Co de Phone Number [facility] [address] [place] [address], [place] [phone] * (ABNORMAL) COMPREHENSIVE METABOLIC PANEL (06/29/2024 1:54 PM CUSTOMER SECURITY CLERK) GLUCOSE 111(H) 70 - 99 MG/DL 06/29/2024 2:38 PM CUSTOMER SECURITY CLERK [facility] BUN 15 7 - 18 MG/DL 06/29/2024 2:38 PM CUSTOMER SECURITY CLERK [facility] CREATININE S/P/B 0.71 0.7 - 1.3 MG/DL 06/29/2024 2:38 PM CUSTOMER SECURITY CLERK [facility] SODIUM S/P/B 136 136 - 145 MMOL/L 06/29/2024 2:38 PM [facility] POTASSIUM S/P/B 4.7 3.5 - 5.1 MMOL/L 06/29/2024 2:38 PM [facility] Comment:SLIGHT HEMOLYSIS, RE SULT MAY BE AFFECTED. CHLORIDE S/P/B 97 97 - 115 MMOL/L 06/29/2024 2:38 PM [facility] CO2 31.3 21 - 32 MMOL/L 06/29/2024 2:38 PM [facility] CALCIUM S/P/B 9.2 8.5 - 10.1 MG/DL 06/29/2024 2:38 PM [facility] BILIRUBIN TOTAL S/P/B 0.6 0.2 - 1.2 MG/DL 06/29/2024 2:38 PM [facility] Comment: THIS ASSAY IS NOT RECOMMENDED FOR PATIENTS UNDERGOING TREATMENT WITH ELTROMBOPAG DUE TO THE POTENTIAL FOR FALSELY ELEVATED RESULTS. TOTAL PROTEIN S/P/B 7.0 6.4 - 8.2 G/DL 06/29/2024 2:38 PM [facility] ALBUMIN S/P/B 2.5(L) 3.4 - 5.0 G/DL 06/29/2024 2:38 PM [facility] AST 48(H) 15 - 37 U/L 06/29/2024 2:38 PM [facility] Comment:SLIGHT HEMOLYSIS, RE SULT MAY BE AFFECTED. ALT 29 16 - 60 U/L 06/29/2024 2:38 PM [facility] ALKALINE PHOSPHATASE S/P/B 85 50 - 136 U/L 06/29/2024 2:38 PM [facility] ANION GAP 7.7 2 - 10 MMOL/L 06/29/2024 2:38 PM [facility] BUN CREATININE RATIO 21.0 6 - 26 06/29/2024 2:38 PM [facility] A/G RATIO 0.6(L) 1.0 - 2.0 RATIO 06/29/2024 2:38 PM [facility] GFR ESTIMATE >90 >90 ML/MIN/1.7 3 M2 06/29/2024 2:38 PM [facility] Comment: NOTE: eGFR is not calculated for patients <18 years of age or gender unknown. This is an estimated GFR calculation using the new CKD EPI creatinine equation without race and so does not require a correction factor for race. This estimated GFR should not be used for calculating drug doses. 06/29/2024 1:54 PM CUSTOMER SECURITY CLERK [facility] Final Resul t [facility] [address] [place] [address], [place] [phone] * (ABNORMAL) CBC W/DIFF AUTOMATED (06/29/2024 1:54 PM CUSTOMER SECURITY CLERK) WBC 10.24 4.5 - 11.0 x10'3/uL 06/29/2024 2:15 PM [facility] RBC 4.93 4.70 - 6.10 x10'6/uL 06/29/2024 2:15 PM [facility] HGB 15.5 14.0 - 18.0 G/DL 06/29/2024 2:15 PM [facility] HCT 48.1 43.0 - 54.0 % 06/29/2024 2:15 PM [facility] MCV 97.6(H) 80.0 - 94.0 FL 06/29/2024 2:15 PM [facility] MCH 31.4(H) 27.0 - 31.0 PG 06/29/2024 2:15 PM [facility] MCHC 32.2 32.0 - 36.0 G/DL 06/29/2024 2:15 PM CUSTOMER SECURITY CLERK [facility] RDW 13.3 11.5 - 14.5 % 06/29/2024 2:15 PM [facility] PLT 232 130 - 400 x10'3/uL 06/29/2024 2:15 PM [facility] MPV 10.4 9.3 - 12.2 FL 06/29/2024 2:15 PM [facility] DIFFERENTIAL TYPE MANUAL DIFFERENTIAL 06/29/2024 2:40 PM CUSTOMER SECURITY CLERK [facility] SEG NEUTROPHILS 59 % 2:40 PM [facility] LYMPHOCYTES 20 % 06/29/2024 2:40 PM [facility] MONOCYTES 16 % 06/29/2024 2:40 PM CUSTOMER SECURITY CLERK [facility] EOSINOPHILS 3 % 06/29/2024 2:40 PM [facility] METAMYELOCYTES 1 % 06/29/2024 2:40 PM [facility] MYELOCYTES 1 % 06/29/2024 2:40 PM [facility] ABS. NEUTROPHILS 6.04 1.80 - 7.70 x10'3/uL 06/29/2024 2:40 PM CUSTOMER SECURITY CLERK [facility] ABS. LYMPHOCYTES 2.05 1.00 - 4.80 x10'3/uL 06/29/2024 2:40 PM [facility] ABS. MONOCYTES 1.64(H) 0.30 - 0.82 x10'3/uL 06/29/2024 2:40 PM [facility] ABS. EOSINOPHILS 0.31 0.04 - 0.54 x10'3/uL 06/29/2024 2:40 PM CUSTOMER SECURITY CLERK [facility] ABS. METAMYELOCYTES 0.10(H) 0.00 x10'3/uL 06/29/2024 2:40 PM CUSTOMER SECURITY CLERK [facility] ABS. MYELOCYTES 0.10(H) 0.00 x10'3/uL 06/29/2024 2:40 PM CUSTOMER SECURITY CLERK [facility] RBC MORPHOLOGY RBC MORPHOLOGY APPEARS NORMAL. SLIDE REVIEWED. 06/29/2024 2:40 PM CUSTOMER SECURITY CLERK [facility] PLT EST. ADEQUATE 06/29/2024 2:40 PM CUSTOMER SECURITY CLERK [facility] 06/29/2024 1:54 PM CUSTOMER SECURITY CLERK [facility] Final Resul t [facility] [address] [place] [address], from Last [address] [facility] Care Teams Chainstitch Elastic Attacher Relationship Specialty Start Date End Date None, Provider, PCP - General UNKNOWN PHYSICIAN SPECIALTY 06/29/24
== END 2024-08-14 09:58 | disposition home or self-care (01) ==
LOC: ANHLAB 09:58
PROVIDERS: PCP Internal Medicine; Visit Provider Internal Medicine Hematology & Oncology
DX: C34.92 Malignant neoplasm of unspecified part of left bronchus or lung (principal)
CPT/HCPCS: 36415; 80047; 80053; 85025

== ENCOUNTER 2024-11-04 08:51 | Outpatient (CLI) | payer MEDICARE, OTHER, SELFPAY ==
--- NOTE | ~2024-11-04 | CT_ITS ---
Clinical Indication: Lung cancer CT Scan of the Chest with Contrast: Technique: Contiguous sections were acquired throughout the chest after intravenous administration of 75 cc of Omnipaque 350. Dose reduction technique was used on this scan by utilizing automated exposu re control and iterative reconstruction technique. The dose-length product (DLP) was 158.42 mGy-cm. COMPARISON: 08/04/2024 Findings: There is no evidence of any significant mediastinal, hilar or axillary lymphadenopathy. There is no f illing defect in the pulmonary arterial tree to suggest pulmonary embolus. There is no evidence of ao rtic dissection or aneurysm. There is no evidence of pleural or pericardial effusion. There is moderate to advanced emphysema. Stable 1.6 cm nodule in the left perihilar region the upper lobe. 9 mm right lower lobe pulmonary nodule is probably mildly increased (axial image 99). Adjacent scarring and architectural distortion is present, suggestive of postradiation change. Images through the upper abdomen reveal no abnormalities. Severe T7 compression fracture is unchanged . Impression: Stable 1.6 cm left upper lobe perihilar nodule with surrounding postradiation change and architectura l distortion. Findings are stable from prior exam. 9 mm right lower lobe pulmonary nodules probably minimally increased. Neoplastic lesion is not exclud ed. Moderate to advanced emphysema. Stable severe T7 compression fracture. Reviewed, dictated and finalized at location M. Impression: Stable 1.6 cm left upper lobe perihilar nodule with surrounding postradiation c hange and architectural distortion. Findings are stable from prior exam. 9 mm right lower lobe pulmonary nodules probably minimally increased. Neoplasti c lesion is not excluded. Moderate to advanced emphysema. Stable severe T7 compression fracture.
[2024-11-04 09:22] LABS: Estimated Glomerular Filt Rate > 60
--- OUTSIDE RECORDS SUMMARY | 2024-11-04 09:22 | XMS_ITS | Clinical Summary ---
Author Organization [facility] [address] Address [address] [place] [address] Care Team Providers Care Soda Fountain Manager Name Role Phone Martin Tejeda MD [...] spit. Do not swallow. 350 mL 3 Active Active Problems Problem Noted Date Diagnosed Date Pemphigus vulgaris 07/28/2024 Encounters Date Type Department Care Team Description 08/31/2024 8:30 AM CDT Infusion [address] [place] [phone] Pemphigus vulgaris (HCC) (Primary Dx) 08/25/2024 12:45 PM CDT Office Visit [facility] [address] [place] [address] Outpatient Health [address] [place] [phone] Farhad Arriola MD Pemphigus vulgaris (HCC) (Primary Dx); Mouth sores 08/17/2024 8:30 AM CDT Infusion [address] [place] [phone] Pemphigus vulgaris (HCC) (Primary Dx) 08/11/2024 Telephone [facility] [address] [place] [address] Outpatient Health [address] [place] [phone] Farhad Arriola MD dosing instructions 08/10/[address] [phone] Joelle Rosenbaum RN 08/06/2024 Results Follow-Up [facility] [address] [place] [address] Outpatient Health [address] [place] [phone] Farhad Arriola MD Hepatitis panel, acute Blood 08/04/2024 Telephone [facility] [address] [place] [address] [address] [place] [phone] Kane Leal RMA Med Refill (/) from Last 3 Months Social History Tobacco Use Types Packs/Day Years Used Date Smoking Tobacco: Former Cigarettes Smokeless Tobacco: Former Tobacco Cessation:Counseling Given: Not Answered Sex and Gender Information Value Date Recorded Sex Assigned at Not on file Legal Sex Male 12:15 PM CASING SPLITTER Gender Identity Not on file Sexual Orientation Not on file Obstetrics History Last Filed Vital Signs Vital Sign Reading Time Taken Comments Blood Pressure 133/76 08/31/2024 12:31 PM CDT Pulse 73 08/31/2024 12:31 PM CDT Temperature 36.2 C (97.1 F) 08/31/2024 12:31 PM CDT Respiratory Rate 18 08/31/2024 12:31 PM CDT Oxygen Saturation 99% 08/31/2024 12:31 PM CDT Inhaled Oxygen Concentration - - Weight 62.6 kg (138 lb) 07/15/2024 1:14 PM CASING SPLITTER Height 180.3 cm (5' 10.98) 03/11/2017 11:36 AM CDT Body Mass Index [...] 02/18/2022, 09/26/2021, Additional history exists Influenza Vaccine (Season Ended) 2025 02/21/2023, 02/18/2022, 02/23/2021, Additional history exists Pneumococcal vaccine 65+ Completed 017, 02/17/2016, 04/29/2014 Hepatitis C Screening Completed 07/31/2024 Procedures Procedure Name Priority Date/Time Associated Diagnosis Comments HEPATITIS PANEL, ACUTE Routine 07/31/2024 12:00 PM CDT High risk medication use from Last 3 Months or Most Recently Relevant to Health Maintenance Results * Hepatitis panel, acute Blood (07/31/2024 12:00 PM CDT) Hep A IgM Nonreactive Nonreactive Comment: Interpretive Data: If Hep A IgM Ab is reported as Equivocal, a new sample should be drawn in two weeks for testing. Current interpretive data was last revised on 19. Hep B core IgM Nonreactive Nonreactive [facility] Comment: Interpretive Data If HepB Core IgM Ab is reported as Equivocal, a new sample should be drawn in two weeks for testing. Current interpretive data was last revised on 19. Hep C Ab Nonreactive Nonreactive [facility] Comment: Interpretive Data Nonreactive: Antibodies to HCV [...] last revised on 2019. HepBsAg Nonreactive Nonreactive [facility] Blood 07/31/2024 12:0 0 PM CDT 07/31/2024 4:00 PM CDT Farhad Arriola MD LAB MICROBIOLOGY - GENERA L ORDERABLES Final Result [facility] [id number] [place] [address] from Last 3 Months or Most Recently Relevant to Health Maintenance Insurance MEDICARE [facility] MEDICARE MEDICARE [employer] [facility] Care Teams Soda Fountain Manager Relationship Specialty Start Date End Date Martin Tejeda MD PCP - General 03/09/17
--- OUTSIDE RECORDS SUMMARY | 2024-11-04 09:22 | XMS_ITS | Encounter Summary ---
Author Organization [facility] Address [address] [place] [address] Phone Care Team Providers Care Chemical Project Engineer Name Role Phone Martin Tejeda MD Primary Care Provider [phone] Encounter Details Date Type Department Care Team (Late st Contact Info) Description 07/30/2024 Orders Only [facility] Scanning, Provider Social History Tobacco Use Types Packs/Day Years Used Date Smoking Tobacco: Former Cigarettes Smokeless Tobacco: Former Sex and Gender Information Value Date Recorded Sex Assigned at Not on file Legal Sex Male 12:15 PM LEHR STRIPPER Gender Identity Not on file Sexual Orientation Not on file documented as of this encounter Plan of Treatment Not on file documented as of this encounter Procedures Procedure Name Priority Date/Time Associated Diagnosis Comments SCAN - LABS 07/30/2024 documented in this encounter Results * SCAN - LABS (07/30/2024) us Provider Scanning Final Result documented in this encounter Visit Diagnoses Not on filedocumented in this encounter Care Teams Chemical Project Engineer Relationship Specialty Start Date End Date Martin Tejeda MD PCP - General 03/09/17 documented as of this encounter
--- OUTSIDE RECORDS SUMMARY | 2024-11-04 09:22 | XMS_ITS | Data Portability ---
Author Organization [place] - [facility] [employer], Main Office Address [address] [place] [address] Care Team Providers Care Digital X Ray Service Engineer Name Role Phone ELMER KEY Primary Care Provider Assessment No assessment recorded. Plan of Treatment Reminders Order Date Submit Date Provider Last Modified By Organization Details Last Modified Time Details Appointments Any 15 2024 09:45A M Elmer Key MD Not available Not available Not available Lab uric acid, serum or plasma 2024 025 [facility] (Lab), [address] [place], [address], 10/20/2024 20:18:24 CMP, serum or plasma 2024 025 [facility] (Lab), [address] [place], [address], 10/20/2024 20:18:21 unliste d lab - CBC study 2024 025 [email or web address] [facility] (Lab), [address] [place], [address], 10/30/2024 15:27:03 lipid panel, serum 2024 025 [facility] (Lab), [address] [place], [address], 10/20/2024 20:18:27 Referral None recorde d. Procedures None recorde d. Surgeries None recorde d. Imaging None recorde d. Medication Orders clotrim azole 10 mg mitzi 2024 025 [facility] [address] [place], [address], 06/17/2024 12:42:55 furosem jose 40 mg tablet 2023 024 [facility] [address] [place], [address], 02/20/2024 14:30:48 amlodip ine 5 mg tablet 2023 [facility] [address] [place], [address], 09/14/2024 11:08:04 Patient TargetsNo targets recorded. Patient InstructionsNo instructions recorded. Reason for Referral None Reported. Results Created Date Observation Date Name Description Value Unit Range Abnormal Flag Note LastModifiedBy Organization Detail LastModifiedTime 10/21/1910/20/2024 CBC W/O DIFFE RENTI AL white blood cells 6.3 x10'3 /uL 4.2-10 .8 Not Available [facility] (Lab) [address] [place], [address], 10/20/2024 19:17:17 10/21/19 25 10/20/2024 CBC W/O DIFFE RENTI AL red blood cells 4.56 x10'6 /uL 4.10-5 .80 Not Available [facility] (Lab) [address] [place], [address], 10/20/2024 19:17:17 10/21/19 25 10/20/2024 CBC W/O DIFFE RENTI AL hemoglobin 15.1 g/dL 13.2-1 7.0 Not Available [facility] (Lab) [address] [place], [address], 10/20/2024 19:17:17 10/21/19 25 10/20/2024 CBC W/O DIFFE RENTI AL hematocrit 47.8 % 39.3-5 0.0 Not Available [facility] (Lab) [address] [place], [address], 10/20/2024 19:17:17 10/21/19 25 10/20/2024 CBC W/O DIFFE RENTI AL mean red cell volume 104.8 fL 80.0-9 7.0 high Not Available [facility] (Lab) [address] [place], [address], 10/20/2024 19:17:17 10/21/19 25 10/20/2024 CBC W/O DIFFE RENTI AL mean red cell hemoglobin 33.1 pg 27.0-3 3.0 high Not Available [facility] (Lab) [address] [place], [address], 10/20/2024 19:17:17 10/21/1910/20/2024 CBC W/O DIFFE RENTI AL mean RBC HGB concentratio n 31.6 g/dL 31.0-3 6.0 Not Available [facility] (Lab) [address] [place], [address], 10/20/2024 19:17:17 10/21/19 25 10/20/2024 CBC W/O DIFFE RENTI AL red cell distribution width 12.9 % 11.8-1 5.5 Not Available [facility] (Lab) [address] [place], [address], 10/20/2024 19:17:17 10/21/1910/20/2024 CBC W/O DIFFE RENTI AL platelets 147 x10'3 /uL 150-40 0 low Not Available [facility] (Lab) [address] [place], [address], 10/20/2024 19:17:17 10/21/19 25 10/20/2024 CBC W/O DIFFE RENTI AL mean platelet volume 11.4 fL 9.0-12 .4 Not Available [facility] (Lab) [address] [place], [address], 10/20/2024 19:17:17 10/21/19 25 10/20/2024 COMPR EHENS YOSHI METAB OLIC PANEL sodium 140 mmol/ L 137-14 5 Not Available [facility] (Lab) [address] [place], [address], 10/20/2024 20:18:21 10/21/19 25 10/20/2024 COMPR EHENS YOSHI METAB OLIC PANEL potassium 4.1 mmol/ L 3.5-5. 1 Not Available [facility] (Lab) [address] [place], [address], 10/20/2024 20:18:21 10/21/19 25 10/20/2024 COMPR EHENS YOSHI METAB OLIC PANEL chloride 102 mmol/ L 98-107 Not Available [facility] (Lab) [address] [place], [address], 10/20/2024 20:18:21 10/21/19 25 10/20/2024 COMPR EHENS YOSHI METAB OLIC PANEL carbon dioxide 29 mmol/ L 22-30 Not Available [facility] (Lab) [address] [place], [address], 10/20/2024 20:18:21 10/21/19 25 10/20/2024 COMPR EHENS YOSHI METAB OLIC PANEL anion gap 13.1 mmol/ L 14-22 low Not Available [facility] (Lab) [address] [place], [address], 10/20/2024 20:18:21 10/21/19 25 10/20/2024 COMPR EHENS YOSHI METAB OLIC PANEL glucose 82 mg/dL 70-99 Not Available [facility] (Lab) [address] [place], [address], 10/20/2024 20:18:21 10/21/19 25 10/20/2024 COMPR EHENS YOSHI METAB OLIC PANEL BUN 9 mg/dL 8-19 Not Available [facility] (Lab) [address] [place], [address], 10/20/2024 20:18:21 10/21/19 25 10/20/2024 COMPR EHENS YOSHI METAB OLIC PANEL creatinine 0.53 mg/dL 0.66-1 .25 low Not Available [facility] (Lab) [address] [place], [address], 10/20/2024 20:18:21 10/21/19 25 10/20/2024 COMPR EHENS YOSHI METAB OLIC PANEL GFR >60 Refer ence Range : [place] [facility] GFR Healt hy Adult : >60 [...] or ethni c subgr oups, such as al nics. Outsi de the valid ated fredo [...] s/kdo qi/gf r_cal culat or Not Available [facility] (Lab) [address] [place], [address], 10/20/2024 20:18:21 10/21/19 25 10/20/2024 COMPR EHENS YOSHI METAB OLIC PANEL alkaline phosphatase 100 U/L 38-126 Not Available [facility] (Lab) [address] [place], [address], 10/20/2024 20:18:21 10/21/19 25 10/20/2024 COMPR EHENS YOSHI METAB OLIC PANEL alanine aminotransfe rase 14 U/L 0-50 Not Available [facility] (Lab) [address] [place], [address], 10/20/2024 20:18:21 10/21/19 25 10/20/2024 COMPR EHENS YOSHI METAB OLIC PANEL aspartate aminotransfe rase 32 U/L 15-46 Not Available [facility] (Lab) [address] [place], [address], 10/20/2024 20:18:21 10/21/19 25 10/20/2024 COMPR EHENS YOSHI METAB OLIC PANEL bilirubin, total 0.40 mg/dL 0.20-1 .30 Not Available [facility] (Lab) [address] [place], [address], 10/20/2024 20:18:21 10/21/19 25 10/20/2024 COMPR EHENS YOSHI METAB OLIC PANEL calcium 9.1 mg/dL 8.4-10 .2 Not Available [facility] (Lab) [address] [place], [address], 10/20/2024 20:18:21 10/21/19 25 10/20/2024 COMPR EHENS YOSHI METAB OLIC PANEL total protein 5.5 g/dL 6.3-8. 2 low Not Available [facility] (Lab) [address] [place], [address], 10/20/2024 20:18:21 10/21/19 25 10/20/2024 COMPR EHENS YOSHI METAB OLIC PANEL albumin 3.5 g/dL 3.0-4. 4 Not Available [facility] (Lab) [address] [place], [address], 10/20/2024 20:18:21 10/21/19 25 10/20/2024 COMPR EHENS YOSHI METAB OLIC PANEL globulin 2.0 g/dL 2.6-4. 2 low Not Available [facility] (Lab) [address] [place], [address], 10/20/2024 20:18:21 10/21/19 25 10/20/2024 COMPR EHENS YOSHI METAB OLIC PANEL A/G ratio 1.8 ratio 1.0-2. 0 Not Available [facility] (Lab) [address] [place], [address], 10/20/2024 20:18:21 10/21/19 25 10/20/2024 URIC ACID SERUM uric acid 5.8 mg/dL 3.5-8. 5 Not Available [facility] (Lab) [address] [place], [address], 10/20/2024 20:18:24 10/21/19 25 10/20/2024 LIPID PANEL cholesterol 173 mg/dL 140-19 9 NIH RIC NSUS RECOM MENDA TION FOR NAN STERO L: ADULT CHILD LOW RISK: <200 <170 BORDE RLINE : <200- 239 ----- HIGH RISK: >240 >200 Not Available [facility] (Lab) [address] [place], [address], 10/20/2024 20:18:27 10/21/19 25 10/20/2024 LIPID PANEL triglyceride s 177 mg/dL 0-150 high NIH RIC NSUS REPOR T RECOM MENDA TION FOR TRIGL YCERI BHANU: ADULT CHILD LOW RISK: <150 ----- BODER LINE: 150-1 99 ----- HIGH RISK: >200 ----- Not Available [facility] (Lab) [address] [place], [address], 10/20/2024 20:18:27 10/21/19 25 10/20/2024 LIPID PANEL HDL cholesterol 65 mg/dL 40- Not Available [facility] (Lab) [address] [place], [address], 10/20/2024 20:18:27 10/21/19 25 10/20/2024 LIPID PANEL LDL cholesterol, calculated 73 mg/dL 0-130 NIH RIC NSUS REPOR T [...] WILL NOT BE REPOR ASHLYN. Not Available [facility] (Lab) [address] [place], [address], 10/20/2024 20:18:27 01/24/20 24 01/23/2024 XR, ribs, bilat eral [...] observ ation record ed. Not Available 2024 11:18:08 08/05/19 25 08/04/2024 CT, chest , w/ contr ast No observ ation record ed. Not Available 2024 11:18:08 Result Notes None recorded. Problems Name Problem SNOMED Code Status Onset Date Resolution Date Notes Provider Name and Address Organization Details Recorded Time Chronic obstruct yoshi pulmonar y disease 99695893 Active Not Available [facility] 3 02:48:08 Hyperkal emia 60589197 Active Not Available [facility] 3 02:48:08 Liver function tests outside referenc e range 500947733 Active 2022 Krystina lawrence RMA null, [facility] 3 10:00:45 Postoper ative visit 931245529 Completed 201712/12/2021 Not Available [facility] 3 02:48:08 Pneumoni a 783257137 Completed 202208/20/2022 Krystina lawrence RMA null, [facility] 3 10:00:38 Gastroes ophageal reflux disease 442177994 Active 2020 Not Available [facility] 3 02:48:08 Fracture of calcaneu s 398114143 Completed 201712/12/2021 Not Available [facility] 3 02:48:08 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 653303418 Active 2016 Not Available [facility] 3 02:48:09 Prostate specific antigen above referenc e range 187965230 Active 2021 Not Available [facility] 3 02:48:09 Malignan t neoplasm of prostate 459866828 Active 2021 Not Available [facility] 3 02:48:09 Melanocy tic nevus 203198463 Completed Not Available [facility] 3 02:48:09 Epidermo id cyst of skin 205609737 Completed Not Available [facility] 3 02:48:09 Solitary nodule of lung 657575283 Active Not Available [facility] 3 02:48:09 Former heavy tobacco smoker 21846497296 4100 Active 2016 Not Available [facility] 3 02:48:09 History of polyp of colon 124262813 Active Not Available [facility] 3 02:48:09 Aneurysm of thoracic aorta 277165123 Active Not Available [facility] 3 02:48:09 Cough 58528438 Completed Not Available [facility] 3 02:48:09 Upper respirat ory infectio n 56439774 Completed Elmer Key MD [address], [address], [place], [address] , [facility] 3 11:11:50 Hyperlip idemia 76635814 Active Not Available [facility] 3 02:48:09 Occult blood detected in feces 15139720 Active history of heme pos stools, no hemorrho ids in the past Not Available [facility] 3 02:48:10 [facility] hyperten trey 73571769 Active Not Available [facility] 3 02:48:10 Polyp of colon 72437483 Active Not Available [facility] 3 02:48:10 Erectile dysfunct ion 589173833 Active 2020 Not Available [facility] 3 02:48:10 Gout 16021647 Active Not Available [facility] 3 02:48:10 Pleural effusion 71179600 Active 2022 Elmer Key MD [address], [address], [place], [address] , [place] [facility] 3 10:21:33 Thrombos is of thoracic aorta 31350333 Active 2022 Elmer Key MD [address], [address], [place], [address] , [place] [facility] 3 10:28:10 Upper respirat ory infectio n 84269069 Active 2022 Elmer Key MD [address], [address], [place], [address] , [facility] 3 11:11:50 Acid reflux 306084066 Active 2023 Krystina lawrence Tenisha null, [place] [facility] 4 11:49:02 Malignan t neoplasm of lung 237626969 Active 2023 Elmer Key MD [address], [address], [place], [address] , [facility] 4 11:09:13 Edema of lower extremit y 995452585 Active 2023 Elmer Key MD [address], [address], [place], [address] , [facility] 4 14:25:09 Edema 995974792 Active 2023 Elmer Key MD [address], [address], [place], [address] , [facility] 4 10:59:59 Sinusiti s 47497826 Active 2024 Rona Dunbar MA null, [place] [facility] 5 11:36:00 Candidia sis of mouth 05763561 Active 2024 Elmer Key MD [address], [address], [place], [address] , [facility] 5 12:39:31 Compress ion fracture of thoracic vertebra 67039220108 04 Active 2024 Elmer Key MD [address], [address], [place], [address] , [facility] 5 09:34:47 Pemphigu s 27041487 Active 2024 Elmer Key MD [address], [place], [address] , [facility] 5 11:23:47 Problem Notes None recorded. Procedures Surgical History Date Name Laterality Status Provider Name and Address Organization Details Recorded Time 09/02/19 24 Medicare Wellness CPT Code, subsequent completed Brianna Urbina RN [facility] [employer] [facility] 09/02/2023 11:57:36 08/21/19 Medicare Wellness CPT Code, subsequent completed Amy Vincent RN [facility] [employer] [facility] 08/20/2022 10:29:04 Orthopedic Surgery completed Not Available [facility] 07/18/2022 02:42:55 colonoscopy completed Not Available [facility] 07/18/2022 02:42:55 Imaging Results None recorded. Procedure Notes None recorded. Medical Equipment None Reported. Allergies No known drug allergies Medications Name Sig Start Date Stop Date Status Note LastModified by Organization Details LastModified Time lido2%/ny wz093l/pr edn15/5 susp SWISH AND SWALLOW 5-10ML BY MOUTH 6 HOURS NEEDED active Not Available Not Available No t Available amoxicill in 500 mg capsule Take 1 capsule every 8 hours by oral route for 10 days. 07/20 completed Not Available Not Available Not Available furosemid e 40 mg tablet TAKE [...] FOUR TIMES DAILY LONG POSSIBLE THEN SWALLOW 09/14 completed Not Available Not Available Not Available prednison e 10 mg tablet TAKE [...] VIAL IN NEBULIZE R THREE TIMES DAILY NEEDED. RINSE MOUTH AFTER USE 2024 active Not Available Not Available Not Avai lable azithromy ramin 250 mg tablet TAKE 2 [...] Available prednison e 20 mg tablet TAKE 3 TABLETS BY MOUTH ONCE DAILY IN THE MORNING FOR 7 DAYS, THEN 2 TABLETS ONCE DAILY IN THE MORNING FOR 7 DAYS, THEN 1 TABLET ONCE DAILY UNTIL SEEN IN CLINIC 09/14 completed Not Available Not Available Not Available Viagra 50 mg tablet 08/07 completed Not Available Not Available Not Available levofloxa ramin 250 mg tablet Take 2 tablets every day by oral route as directed for 7 days. active Not Available Not Available No t Available amlodipin e 5 mg tablet TAKE 1 TABLET BY MOUTH ONCE DAILY 09/14 completed Not Available Not Available Not Available peg-elect [...] sone 0.5 mg/5 mL oral solution SWISH 5ML IN MOUTH TWICE DAILY AND THEN SPIT. DO NOT SWALLOW. 09/14 completed Not Available Not Available Not Available [...] 1 TABLET BY MOUTH ONCE DAILY NEEDED 2024 active Not Available Not Available Not Avai lable simvastat in 20 mg tablet Take 1 tablet by mouth once daily 2024 active Not Available Not Available Not Avai lable dexametha sone 4 mg tablet TAKE 1 TABLET BY MOUTH A ONE TIME DOSE . TAKE IN THE MORNING OF DAYS OF LUNG RADIATIO N, WITH FOOD. 09/14 completed Not Available Not Available Not Available prednison e 50 mg tablet TAKE 1 TABLET BY MOUTH ONCE DAILY FOR 5 DAYS 09/14 completed Not Available Not Available Not Available gabapenti n 300 mg capsule TAKE 1 CAPSULE BY MOUTH TWICE DAILY 09/14 completed Not Available Not Available Not Available lidocaine HCl 2 % mucosal solution 09/14 completed Not Available Not Available Not Available prednisol one 15 mg/5 mL oral solution 09/14 completed Not Available Not Available Not Available lisinopri l 10 mg-hydroc hlorothia zide 12.5 mg tablet Take 1 tablet every day by oral route. active Not Available Not Available No t Available levofloxa ramin 500 mg tablet 04/05 completed Not Available Not Available Not Available albuterol sulfate HFA 90 mcg/actua tion aerosol inhaler INHALE 2 PUFFS BY MOUTH EVERY 4 HOURS PRN 2024 active Not Available Not Available Not Avai lable atenolol 50 mg tablet TAKE 2 TABLETS [...] DO NOT EXCEED 6 PER 24 HOURS 09/14 completed Not Available Not Available Not Available azithromy ramin 500 mg tablet 10/24 [...] MODERATE PAIN. MAX DAILY AMOUNT 40 MG. 09/14 completed Not Available Not Available Not Available Flovent Diskus 250 mcg/actua tion powder [...] completed Not Available Not Available Not Available Gayztri Aerospher e 160 mcg-9mcg- 4.8mcg/ac tuation HFA [...] Updated DateTime 5 175.26 cm 22.2 kg/m2 52820.8 6 g 97.6 [degF] 97 /min 96 % 96 % 2 L/min 119 mm[Hg] 78 mm[Hg] Qiana mi [facility] 5 12:32:51 Date Recorded Body height Body mass index (BMI) Body weight Body temperature Heart rate Oxygen saturation Oxygen saturation in Arterial blood by Pulse oximetry Inhaled oxygen flow rate Systolic blood pressure Diastolic blood pressure Provider Name and Address Organization Details Last Updated DateTime 5 175.26 cm 21.7 kg/m2 04170.0 8 g 97.6 [degF] 89 /min 93 % 93 % 2 L/min 118 mm[Hg] 76 mm[Hg] Qiana mi [facility] 5 11:07:24 Date Recorded Body height Body mass index (BMI) Body weight Body temperature Heart rate Oxygen saturation Oxygen saturation in Arterial blood by Pulse oximetry Systolic blood pressure Diastolic blood pressure Provider Name and Address Organization Details Last Updated DateTime 4 175.26 cm 25.5 kg/m2 27096.4 8 g 96.8 [degF] 77 /min 93 % 93 % 116 mm[Hg] 70 mm[Hg] ROYER Caro [facility] 4 10:51:22 Date Recorded Body height Body mass index (BMI) Body weight Body temperature Heart rate Oxygen saturation Oxygen saturation in Arterial blood by Pulse oximetry Systolic blood pressure Diastolic blood pressure Provider Name and Address Organization Details Last Updated DateTime 4 175.26 cm 24.2 kg/m2 49764.1 5 g 97.4 [degF] 89 /min 90 % 90 % 120 mm[Hg] 66 mm[Hg] ROYER Caro [facility] [employer] [facility] 4 14:02:38 Date Recorded Body weight Body mass index (BMI) Body height Body temperature Heart rate Oxygen saturation Oxygen saturation in Arterial blood by Pulse oximetry Systolic blood pressure Diastolic blood pressure Provider Name and Address Organization Details Last Updated DateTime 4 51010 g 23.2 kg/m2 175.26 cm 97.7 [degF] 95 /min 97 % 97 % 116 mm[Hg] 68 mm[Hg] ROYER Caro [facility] [employer] [facility] 4 10:46:53 Social History Question Answer Notes LastModified by Organization Details LastModified Time Tobacco Smoking Status Former Smoker Quit- 2005 Radha Nowak RN [facility], [facility] [employer] [facility] 04/19/2023 10:06:59 Do You Have An Advance Directive? Yes [id number] Information not available 07/18/2022 Do You Wear A Helmet When Biking? No [email or web address] Information not available 04/19/2023 Are You Blind Or Do You Have Difficulty Seeing? No [email or web address] Information not available 04/19/2023 What Is Your Level Of Caffeine Consumption? Occasional 1 Cup Coffe In The Morning [id number] Information not available 07/18/2022 How Much Tobacco Do You Chew? None [email or web address] [id number] Information not available 07/18/2022 Are You Deaf Or Do You Have Serious Difficulty Hearing? No [email or web address] Information not available 04/19/2023 What Type Of Diet Are You Following? REGULAR [id number] Information not available 07/18/2022 Which Illicit Or Recreational Drugs Have You Used? None [email or web address] Information not available 04/19/2023 What Is The Highest Grade Or Level Of School You Have Completed Or The Highest Degree You Have Received? [id number] [email or web address] Information not available 04/19/2023 Have There Been Any Changes To Your Family Or Social Situation? No [email or web address] Information not available 04/19/2023 What Is The Fluoride Status Of Your Home? Fluoridated [email or web address] Information not available 04/19/2023 When Did You Quit Smoking? 16+yearssincelastc igarette [email or web address] Information not available 04/19/2023 Are There Any Guns Present In Your Home? No Information not available 04/19/2023 Do You Use Insect Repellent Routinely? No [email or web address] Information not available 04/19/2023 Where Do You Live? SingleLevelHouse [email or web address] Information not available 04/19/2023 Advance Directive- Providers Has Reviewed Directive And Consents To Follow Them (insert Provider Name With Any Objectives In Notes Field) Yes Information not available 08/20/2022 Guns Present In The Home? Yes [email or web address] Information not available 09/02/2023 Are You Able To Care For Yourself? Yes [email or web address] Information not available 08/20/2022 Are You Blind Or Do Yo Have Difficulty Seeing? No [email or web address] Information not available 08/20/2022 Are You Deaf Or Do You Have Serious Difficulty Hearing? No [email or web address] Information not available 08/20/2022 General Stress Level? Low [email or web address] Information not available 08/20/2022 Live Alone Of With Others? With Others [email or web address] Information not available 08/20/2022 Do You Have A Medical Power Of Social Sciences Research Scientist? Yes [email or web address] Information not available 04/19/2023 What Was The Date Of Your Most Recent Tobacco Screening? 09/02/2023 [email or web address] Information not available 09/02/2023 Do You Have Any Pets? No [email or web address] Information not available 04/19/2023 What Is Your Relationship Status? [id number] Information not available 07/18/2022 Do You Use Your Seat Belt Or Car Seat Routinely? Yes Information not available 04/19/2023 Do You Have Smoke And Carbon Monoxide Detectors In Your Home? Yes [email or web address] Information not available 04/19/2023 At What Age Did You Start Smoking Tobacco? 12 [email or web address] Information not available 04/19/2023 Are You Passively Exposed To Smoke? No [email or web address] Information not available 04/19/2023 How Much Tobacco Do You Smoke? 3+ PPD [id number] Information not available 07/18/2022 Do You Use Sunscreen Routinely? No [email or web address] Information not available 04/19/2023 Has Tobacco Cessation Counseling Been Provided? No Information not available 04/19/2023 How Many Years Have You Smoked Tobacco? 43 [email or web address] Information not available 04/19/2023 Have You Recently Traveled Abroad? Yes Last Mo Went To [place] [email or web address] Information not available 04/19/2023 Do You Have Difficulty Walking Or Climbing Stairs? No [email or web address] Information not available 04/19/2023 Do You Have Any Dietary Restrictions? No [email or web address] Information not available 04/19/2023 Sex: Male Functional Status Question Answer Note LastModified by [employer] ion Details LastModified Time Do you use any illicit or recreational drugs? No [email or web address] Information not available 04/19/2023 Do you or have you ever used any other forms of tobacco or nicotine? No [email or web address] Information not available 04/19/2023 What is your level of alcohol consumption? Moderate 2-3x/wk [email or web address] Information not available 09/02/2023 Do you or have you ever used smokeless tobacco? Never used smokeless tobacco [id number] Information not available 07/18/2022 Do you have transportation difficulties? No [email or web address] Information not available 04/19/2023 Are you able to walk? YESWOREST [email or web address] Information not available 04/19/2023 Do you have difficulty doing errands alone? No [email or web address] Information not available 04/19/2023 Are you able to care for yourself? Yes [email or web address] Information n ot available 04/19/2023 What is your occupation? Retired [email or web address] Information not available 04/19/2023 Do you have difficulty dressing or bathing? No [email or web address] Information not available 04/19/2023 Do you or have you ever used e-cigarettes or vape? Never used electronic cigarettes Information not available 04/19/2023 What is your exercise level? Occasional [id number] Information not available 07/18/2022 Mental Status Question Answer Note LastModified by [employer] Details LastModified Time Do you feel stressed (tense, restless, nervous, or anxious, or unable to sleep at night)? [id number] Information not available 04/19/2023 Do you have difficulty concentrating, remembering or making decisions? No [email or web address] Information no t available 04/19/2023 Family History Relationship Description Onset Age of this Age Resolved Age Notes LastModified by Organization Details LastModified Time Mother Malignant neoplasm of lung [id number] Not available 07/18/2022 02:42:57 Notes:Blood clot- father Medical History Condition Response COPD Y HIGH CHOLESTEROL / HYPERLIPIDEMIA Y GERD/NAUSEA Y GOUT Y HYPERTENSION Y Immunizations Vaccine Type Date Status Note Provider Nam e and Address Organization Details Recorded Time COVID-19, mRNA, LNP-S, PF, 30 mcg/0.3 mL dose 1 completed Not Available [facility] 07/18/2022 02:54:36 Influenza, high-dose, quadrivalent, PF 1 completed Not Available [facility] 07/18/2022 02:54:36 SARS-COV-2 (COVID-19) vaccine, UNSPECIFIED 1 completed Not Available [facility] 07/18/2022 02:54:37 SARS-COV-2 (COVID-19) vaccine, UNSPECIFIED 1 completed Not Available [facility] 07/18/2022 02:54:37 Influenza, high-dose, trivalent, PF 9 completed Not Available [facility] 07/18/2022 02:54:37 Influenza, split virus, trivalent, preservative 7 completed Not Available [facility] 07/18/2022 02:54:37 pneumococcal polysaccharide PPV23 7 completed Not Available [facility] 07/18/2022 02:54:37 Influenza, high-dose, trivalent, PF 0 completed Not Available [facility] 07/18/2022 02:54:37 influenza nasal, unspecified formulation 5 completed Not Available [facility] 07/18/2022 02:54:37 pneumococcal polysaccharide PPV23 4 completed Not Available [facility] 07/18/2022 02:54:37 Influenza, split virus, trivalent, PF 4 completed Not Available [facility] 07/18/2022 02:54:37 Past Encounters Encounter ID Performer Location Encounter Start Date Encounter Closed Date Diagnosis/Indication Diagnosis SNOMED-CT Code Diagnosis ICD10 Code Diagnosis Note [id number] Elmer Key MD [facility] [address] [facility] [place] [address] 08/30/2020 00:00:00 08/30/2020 12:16:34 [id number] _ATHN_MIGR ATION_1 _ATHENA_M IGRATION_ DEFAULT_1 _1 , 10/12/2020 00:00:00 10/12/2020 11:39:09 [id number] MD JEFF Rodriguez[facility] [address] [place] [address] 12/27/2020 00:00:00 12/27/2020 10:48:46 [id number] MD HENNY [facility] [address] [place] [address]. [place] [address] 04/26/2021 00:00:00 04/26/2021 13:17:38 [id number] MD HENNY [facility] [address] [place] [address]. [place] [address] 08/28/2021 00:00:00 08/28/2021 10:02:42 [id number] MD HENNY [facility] [address] [place] [address]. [place] [address] 12/18/2021 00:00:00 12/18/2021 10:10:52 [id number] MD HENNY [facility] [address] [place] [address] 04/19/2022 00:00:00 04/19/2022 10:09:01 [id number] MD HENNY [facility] [address] [place] [address]. [place] [address] 06/07/2022 00:00:00 06/07/2022 12:04:24 [id number] Elmer Key MD [facility] Internal Med [address] [place] [address] 08/20/2022 09:52:55 08/20/2022 10:29:50 Essential hypertension 84930346 I10 Under control Chronic ob structive pulmonary disease 99779300 J44.9 Under control with inhalers Gout 94511060 M10.9 no recurrence Hyperlipidemia 96884997 E78.5 Stable watch diet Gastroesop hageal reflux disease 801642130 K21.9 Better Erectile dysfunction 860 602484 F52.21 Meds help Malignant neoplasm of prostate 509669205 C61 PSA- stable Adult heal th examination 490312592 Z00.00 Colonoscop y- 11/2020, polyp, next in 5 yrsPSA- re vnar 2016 @ [facility]- 04/2014, 02/2017[facility] T- 10/05/2020 FLU- 2COV ID- #1- 06/23/20, #2- 07/26/20, all boosters Pleural effusion 5052393 8 J90 recurrence , seeing pulm History of polyp of colon 107967494 Z86.010 Liver func tion tests outside reference range 432646446 R94.5 Solitary n odule of lung 315712294 R91.1 Family his tory of aneurysm of thoracic aorta 820542400 Z82.49 Thrombosis of thoracic aorta 68142076 I74.11 on xarelto, needs duration, he will discuss with cardiology Screening for disorder 728174469 Z13.9 [id number] Elmer Key MD [facility] Internal Med [address] [facility] [place] [address] 12/20/2022 10:00:02 12/20/2022 10:42:27 Essential hypertension 85034299 I10 Under control Chronic ob structive pulmonary disease 71882071 J44.9 Under control with inhalers, o2 as needed Gout 68421180 M10.9 no recurrence Hyperlipidemia 22112583 E78.5 Stable watch diet Gastroesop hageal reflux disease 519973649 K21.9 Better Malignant neoplasm of prostate 236302881 C61 PSA- stable Adult heal th examination 982154096 Z00.00 Colonoscop y- 11/2020, polyp, next in 5 yrsPSA- 2Pre gallito 2016 @ [facility]- 04/2014, 02/2017[facility] T- 10/05/2020 FLU- 2COV ID- #1- 06/23/20, #2- 07/26/20, all boosters Pleural effusion 8609055 8 J90 improved History of polyp of colon 504691506 Z86.010 Family his tory of aneurysm of thoracic aorta 632143993 Z82.49 seeing cardiology Thrombosis of thoracic aorta 40667549 I74.11 on xarelto, he needs it for life long due to previous h/o of DVT [id number] Elmer Key MD [facility] [address] [place] [address] 04/19/2023 10:04:21 04/22/2023 09:55:17 Essential hypertension 40737151 I10 watch Chronic ob structive pulmonary disease 05887536 J44.9 Under control with inhalers, o2 as needed Gout 37630101 M10.9 no recurrence Hyperlipidemia 72815187 E78.5 Stable watch diet Gastroesop hageal reflux disease 415114715 K21.9 Better Malignant neoplasm of prostate 276217635 C61 PSA- stable Pleural effusion 7784536 8 J90 improved History of polyp of colon 254445323 Z86.010 Family his tory of aneurysm of thoracic aorta 420146787 Z82.49 seeing cardiology Thrombosis of thoracic aorta 05731014 I74.11 on xarelto, he needs it for life long due to previous h/o of DVT Adult heal th examination 506806980 Z00.00 Colonoscop y- 11/2020, polyp, next in 5 yrsPS- 2022 at urology , was 0.4Prevnar 2016 @ [facility]- 04/2014, 02/2017[facility] T- 10/05/2020 FLU- 2COV ID- #1- 06/23/20, #2- 07/26/20, all boosters Upper resp iratory infection 69125576 J06.9 mucinex prn , call next week if not better [id number] Elmer Key MD [facility] [address] [place] [address] 09/02/2023 11:39:10 09/02/2023 12:15:37 Essential hypertension 94682246 I10 ^ the amlodipine Chronic ob structive pulmonary disease 50777971 J44.9 Under control with inhalers, o2 as needed Gout 96348858 M10.9 no recurrence Hyperlipidemia 58380946 E78.5 Stable watch diet Gastroesop hageal reflux disease 615018530 K21.9 Better Malignant neoplasm of prostate 021296470 C61 PSA- stable Pleural effusion 3106433 8 J90 improved Family his tory of aneurysm of thoracic aorta 220925549 Z82.49 seeing cardiology Thrombosis of thoracic aorta 76014744 I74.11 on xarelto, he needs it for life long due to previous h/o of DVT Adult heal th examination 053285779 Z00.00 Colonoscop y- 11/2020, polyp, next in 5 yrsPSA- 2022 at urology , was 0.4Prevnar 2016 @ [facility]ax- 04/2014, 02/2017[facility] T- 10/05/2020 , CT-Chest- 12/18/2022, PET- 09/18/2022 FLU- 02/2022, 02/22/2023R SV- 02/22/2023 OVID- #1- 06/23/20, #2- 07/26/20, 02/28/2023 all boosters Acid reflux 486749035 K2 1.9 Screening for disorder 056334208 Z13.9 [id number] Elmer Key MD [facility] Internal Med [address] [facility] [place] [place] [address] 12/31/2023 10:43:14 12/31/2023 11:14:03 Essential hypertension 13890559 I10 better since dose was increased Chronic ob structive pulmonary disease 79897224 J44.9 Under control with inhalers, o2 as needed Gout 74186309 M10.9 no recurrence Hyperlipidemia 18737391 E78.5 Stable watch diet Gastroesop hageal reflux disease 034850295 K21.9 Better Malignant neoplasm of prostate 467546880 C61 PSA- stable, being li at urology Pleural effusion 7256980 8 J90 improved Thrombosis of thoracic aorta 26811267 I74.11 on xarelto, he needs it for life long due to previous h/o of DVT Acid reflux 455881609 K2 1.9 meds help Adult heal th examination 153791087 Z00.00 Colonoscop y- 11/2020, polyp, next in 5 yrsPSA- at urologyP gallito 2016 @ [facility]- 04/2014, 02/2017[facility] T- 10/05/2020 , CT-Chest- 12/18/2022, PET- 09/18/2022 FLU- 02/2022, 02/22/2023R SV- 02/22/2023 OVID- #1- 06/23/20, #2- 07/26/20, 02/28/2023 all boosters Ex-smoker 7655758 Z87.89 1 has quit long time ago Malignant neoplasm of lung 674885024 C34.90 s/p RT, getting CT chest for f/u next month [id number] Elmer Key MD [facility] Internal [address] [place] [address] 02/20/2024 13:58:54 02/20/2024 14:37:06 Edema of lower extremity 390132200 R60.0 could be due to amlodipine , will cut done the dose to 5 mgwill try Furosemide less likely DVT, although at high risk due yo cancer but already on xarelto Essential hypertension 02040470 I10 decrease the dose [id number] Elmer Key MD [facility] Internal Med [address] [facility] [place] [place] [address] 03/24/2024 10:39:30 03/24/2024 11:02:13 Essential hypertension 81116034 I10 under control Edema 191556387 R60.9 improvedst op furosemide call if starts swelling again [id number] Elmer Key MD [facility] Internal Med [address] [place] [address] 06/17/2024 12:20:12 06/17/2024 12:48:52 Candidiasis of mouth 69537289 B37.0 [id number] Elmer Key MD [facility] [address] [place] [address] 09/14/2024 10:56:53 09/14/2024 12:29:50 Essential hypertension 25988798 I10 under control Chronic ob structive pulmonary disease 24578680 J44.9 Under control with inhalers, o2 as needed Gout 85309712 M10.9 no recurrence Hyperlipidemia 06663943 E78.5 Stable watch diet Gastroesop hageal reflux disease 420697604 K21.9 meds help Malignant neoplasm of prostate 296719120 C61 PSA- stable, being done at urology Pleural effusion 4278226 8 J90 improved Thrombosis of thoracic aorta 54858203 I74.11 on xarelto, he needs it for life long due to previous h/o of DVT Acid reflux 088342857 K2 1.9 meds help Adult heal th examination 962980889 Z00.00 Colonoscop y- 11/2020, [facility], [facility] 04[facility]2014, 02/2017[facility] T- 10/05/2020 , CT-Chest- 12/18/2022, PET- 09/18/2022 FLU- 02/2022, 02/22/2023R SV- 02/22/2023 OVID- #1- 06/23/20, #2- 07/26/20, 02/28/2023 all boosterssh ingrix x 2 Ex-smoker 9110878 Z87.89 1 has quit long time ago Malignant neoplasm of lung 113006859 C34.90 s/p RT, Pemphigus 25886189 L10.9 better Health Concerns Section Related Observation LastModified by Organization Detai ls LastModified Time None Recorded Concern Status LastModified by Organization Details LastModified Time None Recorded Advance Directives Directive Y: Payers Insurance Date Sequence Insurance Name Policy Number Policy Leonard Covered Member ID Leonard Member ID Guarantor Name 11/03/2024 [facility] Donta Doherty [facility] Donta Doherty 11/03/2024 1 [place] Donta Doherty [id number] Donta Forrest Bessy 11/03/2024 2 [employer] (MEDICARE SUPPLEMENT) PLAN G Donta Forrest Bessy [id number] Donta Forrest Bessy Notes Date Note Type Note Provider Name and Address Organization Details Recorded Time 12/31/2023 text/html Doing fine, compliant to medications, [...] LFT nl Elmer Key MD [address] [facility] [facility] [address], [place], [address], [place] [employer] 12/31/2023 11:13:44 02/20/2024 text/html Pt is here [...] Key MD [address], [place], [address], [employer] 02/20/2024 15:54:57 03/24/2024 text/html Pt is here today for a 1 month follow upHe is currently on Furosemide for bilateral lower leg edema which has cleared.amlodipine was decreased to 5 mgHe has lost 7 lbs Elmer Key MD [address], [place], [address], [employer] 03/24/2024 11:01:45 06/17/2024 text/html Pt is here today for a sick visit. He is having trouble with his tongue with burning sensations and sore throat and only able to have liquids . Pt is also drooling and is concerned about it. he is taking an antibiotic but hasnt helped it.He was treated for thrush with nystatin but not better.no pain on swallowingno fever Elmer Key MD [address], [place], [address], [employer] 06/17/2024 12:43:49 09/14/2024 text/html Doing fine, compliant to medications, no side affects, here for follow up. He has no complaints. Would like refill on xarelto 20 mgc, breztri samplesPT IS NOT FASTING MEDICAREHTN- BP is under controlMeds- Amlodipine 10 mg daily, Atenolol 100 mg daily COPD, better with inhalers, sees Duran Waters, LYNNE, using o2 as neededMeds- Breztri 160 mcg/9 mcg 2 puffs BID , Ventolin inhaler PRNHe is ex- smoker. Quit 2005Lung cancer- non small cell, Finished Radiation, seeing Dr Chamberlain, no recurrenceAAA. with thrombus- had CT angio, Sees Dr. Sheth, gets ultra sound every year, CTA in 06/11Meds- Xarelto 20 mg dailyGout- no flare up recently- Last flare up was 05/10GERD- better with medsMeds- Pantoprazole 40 mg daily prnHyperlipidemia- labs 11/10Meds- Simvastatin 20 mg daily Prostate cancer- had prostate MRI and biopsy, s/p RT 2021, Dr Lowry, gets PSA at urologyPleural effusion s/p thoracentesis x 2, seeing pulmAlcohol abuse-- does not drink beer any more, drinks wine , LFT nl Sore throat due to Pemphigus, took steroids and infusions, much better, eating better and gaining weight Elmer Key MD [address] [facility], [facility] [address], [place], [address], [place] [employer] 09/14/2024 11:27:38
--- OUTSIDE RECORDS SUMMARY | 2024-11-04 09:22 | XMS_ITS | CONTINUITY OF CARE DOCUMENT ---
Author Name marni, marni Address Unknown Organization [facility] Address [address] [place] [address] Phone [phone] Care Team Providers Care Linotype Mechanic Name Role Phone Domenic SLATER, Wood Unavailable Martin Tejeda MD Unavailable [phone] Martin Tejeda MD Unavailable [phone] PROBLEMS Condition Status Date Provider Notes HTN--echo ef 60%, mild MR, 07/2021 active Wood Sheth MD Hyperlipidemia active Wood Sheth MD Abdominal aortic aneurysm - 3.7 cm on AAA scan 05/2022 active Wood Sheth MD Hx of alcoholism active Wood Sheth MD Hx of tobacco use active Wood Sheth MD COPD active Wood Sheth MD Hyponatremia active Wood Sheth MD Hyperthyroidism active Wood Sheth MD Sinus tachycardia completed - Wood Sheth MD History of left iliac thrombus active Billy Sheth MD Snoring completed - Wood Sheth MD Syncope active Wood Sheth MD Preoperative cardiovascular examination completed - Wood Sheth MD varicose veins active Wood Sheth MD SARS-associated coronavirus active Erum Villavicencio MD Atrial fib paroxysmal on XArelto active Wood Sheth MD Pedal edema active Wood Sheth MD ENCOUNTERS Date Type Provider Location Encounter Diag nosis - In-person encounter Office Visit Wood Sheth MD [facility] Pedal edema - In-person encounter Office Visit Wood Sheth MD [facility] - In-person encounter Office Visit Wood Sheth MD [facility] - In-person encounter Office Visit Wood Sheth MD [facility] Abdominal aortic aneurysm - 3.7 cm on AA A scan 05/2022Sinus tachycardiaSnoringAtrial fib paroxysmal on XArelto - In-person encounter Office Visit Wood Sheth MD [facility] HTN--echo ef 60%, mild MR, bdomi nal aortic aneurysm - 3.7 cm on AAA scan 05/2022 - In-person encounter Office Visit Erum Villavicencio MD [facility] SARS-associated coronavirus - In-person encounter Office Visit Wood Sheth MD [facility] - In-person encounter Office Visit Wood Sheth MD [facility] Abdominal aortic aneurysm - 3.7 cm on AA A scan 05/2022 - In-person encounter Office Visit Wood Sheth MD [facility] varicose veins - In-person encounter Office Visit Wood Sheth MD [facility] Preoperative cardiovascular examination - In-person encounter Office Visit Wood Sheth MD [facility] Abdominal aortic aneurysm - 3.7 cm on AA A scan 05/2022 - In-person encounter Office Visit Wood Sheth MD [facility] Abdominal aortic aneurysm - 3.7 cm on AA A scan 05/2022 - In-person encounter Office Visit Wood Sheth MD [facility] - In-person encounter Office Visit Wood Sheth MD [facility] HTN--echo ef 60%, mild MR, 07/2021HyperlipidemiaAbdominal aortic aneurysm - 3.7 cm on AAA scan 05/2022Hx of alcoholismHx of tobacco useCOPDHyponatremiaHyperthyroidismHistory of left iliac thrombusSyncope VITAL SIGNS Date Observation Value Provider Body Mass Index (Ratio) 25.08 kg/m2 Brody Sheth MD blood pressure, diastolic 70 mm[Hg] omas Poonam blood pressure, systolic 110 mm[Hg] [facility] Poonam height E&M 70 [in_i] Shorty Wayland weight E&M 174.8 [lb_av] [facility] Body Mass Index (Ratio) 24.53 kg/m2 Brody Sheth MD blood pressure, cuff size regular Shiraz et blood pressure, diastolic 86 mm[Hg] [facility] blood pressure, systolic 130 mm[Hg] [facility] pulse rate 73 /min Tom respiratory rate E&M 12 /min [facility] oxygen saturation, oximetry 98 % [facility] weight E&M 171 [lb_av] [facility] y height E&M 70 [in_i] [facility] y Body Mass Index (Ratio) 23.82 kg/m2 Brody Sheth MD blood pressure, cuff size regular Ke rri Gruenenfeldlynda blood pressure, diastolic 84 mm[Hg] Ke rri Gruenenfelder blood pressure, systolic 150 mm[Hg] Marlen Montalvo Inhaled O2 3 L/min Parul harveyer oxygen saturation, oximetry 96 % Parul Connorsyonglynda respiratory rate E&M 14 /min Parul gelleryong pulse rate 77 /min Parul Murray [facility] weight E&M 166 [lb_av] Parul Murray [facility] height E&M 70 [in_i] Parul Murray [facility] Body Mass Index (Ratio) 24.10 kg/m2 Brody [...] height E&M 70 [in_i] Parul Janaynenfe [facility] Body Mass Index (Ratio) 24.25 kg/m2 Brody Sheth MD blood pressure, cuff size regular Ke rri Gruenenfeld blood pressure, diastolic 70 mm[Hg] Ke rri Gruenenfelder blood pressure, systolic 120 mm[Hg] Ker ri Antwanuenenfeldlynda oxygen saturation, oximetry 95 % Parul Gruenenfyousuf respiratory rate E&M 16 /min Parul G ruenenfelder pulse rate 74 /min Parul Gruenenfe er weight E&M 169 [lb_av] Parul Gruenenfdelia [facility] height E&M 70 [in_i] Parul Gruenenfe [facility] Body Mass Index (Ratio) 23.39 kg/m2 Brody Sheth MD blood pressure, diastolic 82 mm[Hg] To queta Weston blood pressure, systolic 117 mm[Hg] Glenn Weston oxygen saturation, oximetry 93 % Tons Weston pulse rate 74 /min Tons Weston weight E&M 163 [lb_av] Tonsha Weston height E&M 70 [in_i] [facility]on Body Mass Index (Ratio) 22.81 [...] ia Austen oxygen saturation, oximetry 89 % Fley Austen pulse rate 84 /min Fely Austen [...] victor Henderson oxygen saturation, oximetry 93 % [facility] E&M 16 /min [facility] pulse rate 83 /min [facility] weight E&M 155 [lb_av] [facility] height E&M 70 [in_i] [facility] Body Mass Index (Ratio) 22.09 kg/m2 Brody Sheth MD blood pressure, diastolic 78 mm[Hg] Elias Olivares blood pressure, systolic 118 mm[Hg] [facility] live [facility] pulse rate 76 /min [facility] oxygen saturation, oximetry 97 % [facility] respiratory rate E&M 16 /min [facility] weight E&M 154 [lb_av] [facility] height E&M 70 [in_i] [facility] Body Mass Index (Ratio) 21.52 kg/m2 Brody Sheth MD blood pressure, diastolic 80 mm[Hg] Brent isty [place] blood pressure, systolic 114 mm[Hg] Mirella Guerrero blood pressure, cuff size regular Brent israndolph Greenbergby oxygen saturation, oximetry 93 % Fabby Cesar respiratory rate E&M 17 /min Fabby [place] pulse rate 80 /min Fabby Cesar blood pressure, resting Yes Eric Guerrero height E&M 70 [in_i] Fabby Cesar weight E&M 150 [lb_av] Fabby Guerrero ALLERGIES [...] 3.5-5.2 8 sodium, serum 139 mmol/L [employer] [phone]/01/1 8 urea nitrogen/creatini ne ratio, serum 16 [...] IN NEBULIZER THREE TIMES DAILY NEEDED Fredrick Cottrlel amlodipine 10 mg tablet active Take 1 [...] Parul Connorsyousuf cigarette use yes Parul Connors [facility] smoking status Former smoker Parul [facility] social history E&M S moking History: Anjali [...] pks qd Tonsha Weston cigarette use yes [facility] Former smoker Tons Weston social history reviewed E&M revi ewed - no changes required Wood Sheth MD social history E&M S moking History: Anjali wilson is a former smoker. Wood Sheth MD cigarette use yes Vicki Salter ms smoking status Former smoker Vicki Cast heladiooh social history E&M S moking History: Anjali [...] pks qd Unique Jolley cigarette use yes Uinque chirinos smoking status Former smoker Unique Jose [...] yes [facility] smoking status Former smoker [facility] social history reviewed E&M revi [...] Payer name Policy type / Coverage type [place] red libertarian ID [employer] [id number] [place] MEDICARE Medicare [id number] ADVANCE DIRECTIVES Name Date DISCUSSED - NO DECISION MADE TREATMENT PLAN Date Name Performer [id number],SFredrick i [id number],SFredrick i [id number],SFredrick i [id number],SFredrick i [id number],SFredrick i [id number],S, Wood Sheth MD [id number],BWood MD [id number],B, Wood Sheth MD [id number],B, Wood Sheth MD [id number],BWood MD [id number],B, Wood Sheth MD [id number],B, Wood Sheth MD [id number],SWood MD [id number],BWood MD [id number],W, Wood Sheth MD [id number],SWood MD [id number],S, Fredrick Pfeifferza i [id number],S, Fredrick Manuelmedza i [id number],B, Fredrick Manuelmedza i [id number],S, Fredrick Manuelmedza i [id number],S, Fredrick Manuelmedza i [id number],C,B Ps at home are well controlled. H is updated medication list for this problem includes: Atenolol 100 Mg Tablet (Atenolol) ..... 1 tablet every morning Amlodipine 5 Mg Tablet (Amlodipine) ..... Take 1 tablet by mouth once daily BP today: 140/90 P rior BP: 120/70 (06/14/2020) Labs Reviewed: C reat: 0.72 (09/18/2017) Sommer Johnson [id number],CO melinda Villavicencio MD [id number],C, H is updated medication list for this problem includes: Atenolol 100 Mg Tablet (Atenolol) ..... 1 tablet every morning Amlodipine 5 Mg Tablet (Amlodipine) ..... Take 1 tablet by mouth once daily BP today: 140/90 P rior BP: 120/70 (06/14/2020) Labs Reviewed: C reat: 0.72 (09/18/2017) Erum Villavicencio MD [id number],S,Moderna vacci nated x3 Erum Villavicencio MD [id number],S,P rior CT scan M ild aneurysma.1 dilatation [...] Signed By: Anna Boudreaux MD 2 09:18:20 INSURANCE ASSOCIATE C C: Wood Sheth MD, [facility] Erum Villavicencio MD [id number],S,N o recent PFTs.Needs to have PFTs with hx of emphysema Erum Villavicencio MD Cardiology:stop norvas Shorty Chaidez eatty Cardiology: H is updated medication list for this problem includes: Simvastatin 20 Mg Tablet (Simvastatin) Shorty Wayland Cardiology:on AC wit h xarelto Shorty Poonam [...] Fredrick Ahmedzai Cardiology Fredrick Ahmedzai Cardiology:BPs at [facility] are well controlled. H is updated medication [...] lectronically Signed By: Anna Boudreaux MD 09:18:20 INSURANCE ASSOCIATE C C: Wood Sheth MD, FACC Erum [...] EVAR. Continue atenolol and amlodipine, and statin. oWod Sheth MD Cardiology: H is updated medication [...] EVAR. Continue atenolol and amlodipine, and statin. oWod Sheth MD Cardiology:Reports e pisode of syncope [...] an d pelvis Complete Echo DLCO - 37623 FRC - 90955 FVC - 65928 Aorta Duplex Ultraso und Aorta Duplex Ultraso [...] mpleted EKG Wood Sheth MD completed SNOMED-CT: [id number] Current Medications Documented Wood Sheth MD completed Stress EKG Erum Villavicencio MD completed Regadenoson, 4 units Erum lackey MD completed Cardiolite, 2 units Erum pillai MD completed SPECT Images Erum Villavicencio MD completed EKG Wood Sheth MD completed SNOMED-CT: [id number] Current Medications Documented Wood Sheth MD completed
--- OUTSIDE RECORDS SUMMARY | 2024-11-04 09:22 | XMS_ITS | Referral Summary ---
Author Organization [facility] [address] Address [address] [place] [address] Care Team Providers Care Filenet Admin Name Role Phone Mratin Tejeda MD Primary Care Provider [phone] Encounters Date Type Department Care Team Description 08/31/2024 8:30 AM CDT Infusion [address] [place] [phone] Pemphigus vulgaris (HCC) (Primary Dx) 08/25/2024 12:45 PM CDT Office Visit [facility] Dermatology [address] [place] [address] Outpatient Health [address] [place] [phone] Farhad Arriola MD Pemphigus vulgaris (HCC) (Primary Dx); Mouth sores 08/17/2024 8:30 AM CDT Infusion [address] [place] [phone] Pemphigus vulgaris (HCC) (Primary Dx) 08/11/2024 Telephone [facility] Dermatology [address] [place] [address] Outpatient Health [address] [place] [phone] Farhad Arriola MD dosing instructions 08/10/[address] [place] [phone] Joelle Rosenbaum RN 08/06/2024 Results Follow-Up [facility] Dermatology [address] [facility] [address] [place] [address] Farhad Arriola MD Hepatitis panel, acute Blood 08/04/2024 Telephone [facility] Dermat[facility] [address] [facility] [address] [facility] [address] [place] [phone] Kane Leal RMA Med Refill (/) from Last 3 Months Allergies No known [...] not swallow. 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 Hep B core IgM Nonreactive Nonreactive [facility] Comment: Interpretive Data If HepB Core IgM Ab is reported as Equivocal, a new sample should be drawn in two weeks for testing. Current interpretive data was last revised on 19. Hep C Ab Nonreactive Nonreactive [facility] Comment: Interpretive Data Nonreactive: Antibodies to HCV [...] last revised on 2019. HepBsAg Nonreactive Nonreactive [facility] Blood 07/31/2024 12:0 0 PM CDT 07/31/2024 4:00 PM CDT Farhad Arriola MD LAB MICROBIOLOGY - GENERA [place] [id number] [address] Department of Laboratories [place] [phone] from Last 3 Months or Most Recently Relevant to Health Maintenance Insurance MEDICARE [facility] MEDICARE [place] MEDICARE [facility] Care Teams Filenet Admin Relationship Specialty Start Date End Date Martin Tejeda MD PCP - General 03/09/17
== END 2024-11-04 08:52 | disposition home or self-care (01) ==
PROVIDERS: PCP Internal Medicine; Visit Provider Internal Medicine Hematology & Oncology
DX: R91.8 Other nonspecific abnormal finding of lung field (principal); C34.90 Malignant neoplasm of unspecified part of unspecified bronchus or lung; J43.9 Emphysema, unspecified; S22.060A Wedge compression fracture of T7-T8 vertebra, initial encounter for closed fracture; X58.XXXA Exposure to other specified factors, initial encounter
CPT/HCPCS: 71260; Q9967

== ENCOUNTER 2024-11-11 11:20 | Outpatient (CLI) | payer MEDICARE, OTHER, SELFPAY ==
[2024-11-11 11:33] LABS: Hematocrit 48.6 % (42.0-52.0); Hemoglobin 15.7 g/dL (14.0-18.0); Mean Corpuscular HGB Conc 32.3 g/dl (32-36); Mean Corpuscular Hemoglobin 32.9 pg (26-34); Mean Corpuscular Volume 101.9 fl (80-100); Mean Platelet Volume 10.5 fl (7.4-10.4); Platelet Count Result 139 k/mm3 (150-375); Red Blood Count 4.77 M/mm3 (4.6-6.20); Red Cell Distribution Width 11.9 % (11.5-14.5)
[2024-11-11 14:28] LABS: Alanine Aminotransferase 20 U/L (6-50); Albumin Level 3.6 g/dL (3.5-5.1); Alkaline Phosphatase 80 U/L (38-126); Anion Gap 7 mmol/L (4-12); Aspartate Amino Transferase 73 U/L (17-59); Bilirubin,Total 0.4 mg/dL (0.2-1.3); Blood Urea Nitrogen 13 mg/dL (9-20); Calcium 8.8 mg/dL (8.4-10.2); Carbon Dioxide 31 mmol/L (22-30); Chloride 101 mmol/L (98-107); Estimated Glomerular Filt Rate > 60; Glucose 129 mg/dL (65-110); Potassium 4.3 mmol/L (3.4-5.0); Sodium 139 mmol/L (137-145)
== END 2024-11-11 11:21 | disposition home or self-care (01) ==
PROVIDERS: PCP Internal Medicine; Visit Provider Internal Medicine Hematology & Oncology
DX: C34.92 Malignant neoplasm of unspecified part of left bronchus or lung (principal)
CPT/HCPCS: 36415; 80053; 85027

== ENCOUNTER 2024-12-14 08:36 | Outpatient (CLI) | payer MEDICARE, OTHER, SELFPAY ==
--- NOTE | 2024-12-14 08:44 | ECG_ITS ---
Test Date: 2024-12-14 08:51:08 Measurements Intervals [place] Rate: 64 P: 77 MN: 135 QRS: 28 QRSD: 86 T: 66 QT: 405 QTc: 420 Interpretive Statements SINUS RHYTHM SEPTAL MYOCARDIAL INFARCTION , PROBABLY OLD [40+ ms Q WAVE IN V1/V2] NONSPECIFIC ST AND T-WAVE ABNORMALITIES Compared to ECG 04/12/2024 20:04:43 Myocardial infarct finding now present Possible ischemia no longer present Electronically Signed On 12-14-2024 12:43:32 CDT by Philipp Castillo M.D.
--- OUTSIDE RECORDS SUMMARY | 2024-12-14 08:44 | XMS_ITS | Data Portability ---
Author Organization [place] [facility] [employer], Main Office Address [address] [place] [address] Care Team Providers Care Digital X Ray Service Engineer Name Role Phone ELMER TEJEDA Primary Care Provider [phone] Assessment No assessment recorded. Plan of Treatment Reminders Order Date Submit Date Provider Last Modified By Organization Details Last Modified Time Details Appointments Any 15 2024 09:45A M Elmer Tejeda MD Not available Not available Not available Lab uric acid, serum or plasma 2024 025 [facility] (Lab), [address] [place], [address], 10/20/2024 20:18:24 CMP, serum or plasma 2024 025 [facility] (Lab), [address] [place], [address], 10/20/2024 20:18:21 unliste d lab - CBC study 2024 025 [email or web address] [facility] (Lab), [address] [place], [address], 10/30/2024 15:27:03 lipid panel, serum 2024 025 [facility] (Lab), [address] [place], [address], 10/20/2024 20:18:27 Referral None recorde d. Procedures None recorde d. Surgeries None recorde d. Imaging None recorde d. Medication Orders clotrim azole 10 mg mitzi 2024 025 [facility] [address] [place], [address], 06/17/2024 12:42:55 furosem jose 40 mg tablet 2023 024 [facility] [address] [place], [address], 02/20/2024 14:30:48 amlodip ine 5 mg tablet 2023 [facility] [address] [place], [address], 09/14/2024 11:08:04 Patient TargetsNo targets recorded. Patient InstructionsNo instructions recorded. Reason for Referral None Reported. Results Created Date Observation Date Name Description Value Unit Range Abnormal Flag Note LastModifiedBy Organization Detail LastModifiedTime 10/21/1910/20/2024 CBC W/O DIFFE RENTI AL white blood cells 6.3 x10'3 /uL 4.2-10 .8 Not Available [facility] (Lab) [address] [place], [address], 10/20/2024 19:17:17 10/21/19 25 10/20/2024 CBC W/O DIFFE RENTI AL red blood cells 4.56 x10'6 /uL 4.10-5 .80 Not Available [facility] (Lab) [address] [place], [address], 10/20/2024 19:17:17 10/21/19 25 10/20/2024 CBC W/O DIFFE RENTI AL hemoglobin 15.1 g/dL 13.2-1 7.0 Not Available [facility] (Lab) [address] [place], [address], 10/20/2024 19:17:17 10/21/19 25 10/20/2024 CBC W/O DIFFE RENTI AL hematocrit 47.8 % 39.3-5 0.0 Not Available [facility] (Lab) [address] [place], [address], 10/20/2024 19:17:17 10/21/19 25 10/20/2024 CBC W/O DIFFE RENTI AL mean red cell volume 104.8 fL 80.0-9 7.0 high Not Available [facility] (Lab) [address] [place], [address], 10/20/2024 19:17:17 10/21/19 25 10/20/2024 CBC W/O DIFFE RENTI AL mean red cell hemoglobin 33.1 pg 27.0-3 3.0 high Not Available [facility] (Lab) [address] [place], [address], 10/20/2024 19:17:17 10/21/19 25 10/20/2024 CBC W/O DIFFE RENTI AL mean RBC HGB concentratio n 31.6 g/dL 31.0-3 6.0 Not Available [facility] (Lab) [address] [place], [address], 10/20/2024 19:17:17 10/21/19 25 10/20/2024 CBC W/O DIFFE RENTI AL red cell distribution width 12.9 % 11.8-1 5.5 Not Available [facility] (Lab) [address] [place], [address], 10/20/2024 19:17:17 10/21/19 25 10/20/2024 CBC W/O DIFFE RENTI AL platelets 147 x10'3 /uL 150-40 0 low Not Available [facility] (Lab) [address] [place], [address], 10/20/2024 19:17:17 10/21/19 25 10/20/2024 CBC W/O DIFFE RENTI AL mean platelet volume 11.4 fL 9.0-12 .4 Not Available [facility] (Lab) [address] [place], [address], 10/20/2024 19:17:17 10/21/19 25 10/20/2024 COMPR EHENS YOSHI METAB OLIC PANEL sodium 140 mmol/ L 137-14 5 Not Available [facility] (Lab) [address] [facility] [place], [address], 10/20/2024 20:18:21 10/21/19 25 10/20/2024 COMPR EHENS YOSHI METAB OLIC PANEL potassium 4.1 mmol/ L 3.5-5. 1 Not Available [facility] (Lab) [address] [place], [address], 10/20/2024 20:18:21 10/21/19 25 10/20/2024 COMPR EHENS YOSHI METAB OLIC PANEL chloride 102 mmol/ L 98-107 Not Available [facility] (Lab) [address] [place], [address], 10/20/2024 20:18:21 10/21/19 25 10/20/2024 COMPR EHENS YOSHI METAB OLIC PANEL carbon dioxide 29 mmol/ L 22-30 Not Available [facility] (Lab) [address] [place], [address], 10/20/2024 20:18:21 10/21/19 25 10/20/2024 COMPR EHENS YOSHI METAB OLIC PANEL anion gap 13.1 mmol/ L 14-22 low Not Available [facility] (Lab) [address] [place], [address], 10/20/2024 20:18:21 10/21/19 25 10/20/2024 COMPR EHENS YOSHI METAB OLIC PANEL glucose 82 mg/dL 70-99 Not Available [facility] (Lab) [address] [place], [address], 10/20/2024 20:18:21 10/21/19 25 10/20/2024 COMPR EHENS YOSHI METAB OLIC PANEL BUN 9 mg/dL 8-19 Not Available [facility] (Lab) [address] [place], [address], 10/20/2024 20:18:21 10/21/19 25 10/20/2024 COMPR EHENS YOSHI METAB OLIC PANEL creatinine 0.53 mg/dL 0.66-1 .25 low Not Available [facility] (Lab) [address] [facility], [place], [address], 10/20/2024 20:18:21 10/21/19 25 10/20/2024 COMPR EHENS YOSHI METAB OLIC PANEL GFR >60 Refer ence Range : [place] ge GFR Healt hy Adult : >60 [...] or ethni c subgr oups, such as Alicia nics. Outsi de the valid ated fredo eters , estim ated GFR is less accur ate, requi ring clini charley judgm ent on a case- by-ca se basis . Clini charely inter preta tion for other races and [...] calcu lator is avail able on the [facility] websi te: [email or web address] :[email or web address] [email or web address] rg/pr ofess ional s/kdo qi/gf r_cal culat or Not Available [facility] (Lab) [address] [facility] [place], [address], 10/20/2024 20:18:21 10/21/19 25 10/20/2024 COMPR EHENS YOSHI METAB OLIC PANEL alkaline phosphatase 100 U/L 38-126 Not Available [facility] (Lab) [address] [place], [address], 10/20/2024 20:18:21 10/21/19 25 10/20/2024 COMPR EHENS YOSHI METAB OLIC PANEL alanine aminotransfe rase 14 U/L 0-50 Not Available [facility] (Lab) [address] [place], [address], 10/20/2024 20:18:21 10/21/19 25 10/20/2024 COMPR EHENS YOSHI METAB OLIC PANEL aspartate aminotransfe rase 32 U/L 15-46 Not Available [facility] (Lab) [address] [place], [address], 10/20/2024 20:18:21 10/21/19 25 10/20/2024 COMPR EHENS YOSHI METAB OLIC PANEL bilirubin, total 0.40 mg/dL 0.20-1 .30 Not Available [facility] (Lab) [address] [place], [address], 10/20/2024 20:18:21 10/21/19 25 10/20/2024 COMPR EHENS YOSHI METAB OLIC PANEL calcium 9.1 mg/dL 8.4-10 .2 Not Available [facility] (Lab) [address] [place], [address], 10/20/2024 20:18:21 10/21/19 25 10/20/2024 COMPR EHENS YOSHI METAB OLIC PANEL total protein 5.5 g/dL 6.3-8. 2 low Not Available [facility] (Lab) [address] [place], [address], 10/20/2024 20:18:21 10/21/19 25 10/20/2024 COMPR EHENS YOSHI METAB OLIC PANEL albumin 3.5 g/dL 3.0-4. 4 Not Available [facility] (Lab) [address] [place], [address], 10/20/2024 20:18:21 10/21/19 25 10/20/2024 COMPR EHENS YOSHI METAB OLIC PANEL globulin 2.0 g/dL 2.6-4. 2 low Not Available [facility] (Lab) [address] [place], [address], 10/20/2024 20:18:21 10/21/19 25 10/20/2024 COMPR EHENS YOSHI METAB OLIC PANEL A/G ratio 1.8 ratio 1.0-2. 0 Not Available [facility] (Lab) [address] [place], [address], 10/20/2024 20:18:21 10/21/19 25 10/20/2024 URIC ACID SERUM uric acid 5.8 mg/dL 3.5-8. 5 Not Available [facility] (Lab) [address] [place], [address], 10/20/2024 20:18:24 10/21/19 25 10/20/2024 LIPID PANEL cholesterol 173 mg/dL 140-19 9 NIH RIC NSUS RECOM MENDA TION FOR NAN STERO L: ADULT CHILD LOW RISK: <200 <170 BORDE RLINE : <200- 239 ----- HIGH RISK: >240 >200 Not Available [facility] (Lab) [address] [place], [address], 10/20/2024 20:18:27 10/21/19 25 10/20/2024 LIPID PANEL triglyceride s 177 mg/dL 0-150 high NIH RIC NSUS REPOR T RECOM MENDA TION FOR TRIGL YCERI BHANU: ADULT CHILD LOW RISK: <150 ----- BODER LINE: 150-1 99 ----- HIGH RISK: >200 ----- Not Available [facility] (Lab) [address] [place], [address], 10/20/2024 20:18:27 10/21/19 25 10/20/2024 LIPID PANEL HDL cholesterol 65 mg/dL 40- Not Available [facility] (Lab) [address] [place], [address], 10/20/2024 20:18:27 10/21/19 25 10/20/2024 LIPID PANEL [...] WILL NOT BE REPOR ASHLYN. Not Available [facility] (Lab) [address] [place], [address], 10/20/2024 20:18:27 01/24/20 24 01/23/2024 XR, ribs, [...] Time Chronic obstruct yoshi pulmonar y disease 56358625 Active Not Available [facility] 3 02:48:08 Hyperkal emia 14682803 Active Not Available [facility] 3 02:48:08 Melanocy tic nevus 265229353 Completed Not Available [facility] 3 02:48:09 Epidermo id cyst of skin 546438994 Completed Not Available [facility] 3 02:48:09 Solitary nodule of lung 225083498 Active Not Available [facility] 3 02:48:09 History of polyp of colon 910518499 Active Not Available [facility] 3 02:48:09 Aneurysm of thoracic aorta 331653684 Active Not Available [facility] 3 02:48:09 Cough 47272386 Completed Not Available [facility] 3 02:48:09 Upper respirat ory infectio n 95677358 Completed Elmer Tejeda MD [address], [address] , [facility] [employer] [facility] 3 11:11:50 Hyperlip idemia 91941993 Active Not Available [facility] 3 02:48:09 Occult blood detected in feces 35691969 Active history of heme pos stools, no hemorrho ids in the past Not Available [facility] 3 02:48:10 [facility] hyperten trey 95335386 Active Not Available [facility] 3 02:48:10 Polyp of colon 35617115 Active Not Available [facility] 3 02:48:10 Gout 65641060 Active Not Available [facility] 3 02:48:10 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 568916931 Active 2016 Not Available [facility] 3 02:48:09 Former heavy tobacco smoker 60929605707 4100 Active 2016 Not Available [facility] 3 02:48:09 Fracture of calcaneu s 378600815 Completed 201712/12/2021 Not Available [facility] 3 02:48:08 Postoper ative visit 704847382 Completed 201712/12/2021 Not Available [facility] 3 02:48:08 Gastroes ophageal reflux disease 701556606 Active 2020 Not Available [facility] 3 02:48:08 Erectile dysfunct ion 049548064 Active 2020 Not Available [facility] 3 02:48:10 Prostate specific antigen above referenc e range 059940024 Active 2021 Not Available [facility] 3 02:48:09 Malignan t neoplasm of prostate 985807683 Active 2021 Not Available [facility] 3 02:48:09 Liver function tests outside referenc e range 314371778 Active 2022 ROYER Santamaria, [place] [facility] 3 10:00:45 Pneumoni a 990334882 Completed 202208/20/2022 ROYER Santamaria, [place] [facility] 3 10:00:38 Pleural effusion 78673687 Active 2022 Elmer Tejeda MD [address], [address], [place], [address] , [place] [facility] 3 10:21:33 Thrombos is of thoracic aorta 12868349 Active 2022 Elmer Tejeda MD [address], [address], [place], [address] , [place] [facility] 3 10:28:10 Upper respirat ory infectio n 83401885 Active 2022 Elmer Tejeda MD [address], [address], [place], [address] , [facility] 3 11:11:50 Acid reflux 197339828 Active 2023 ROYER Santamaria null, [place] [facility] 4 11:49:02 Malignan t neoplasm of lung 331453991 Active 2023 Elmer Tejeda MD [address], [address], [place], [address] , [facility] 4 11:09:13 Edema of lower extremit y 705350987 Active 2023 Elmer Tejeda MD [address], [address], [place], [address] , [facility] 4 14:25:09 Edema 326134117 Active 2023 Elmer Tejeda MD [address], [place], [address] , [facility] 4 10:59:59 Sinusiti s 64517202 Active 2024 Rona Dunbar MA null, [place] - [facility] 5 11:36:00 Candidia sis of mouth 11835115 Active 2024 Elmer Tejeda MD [address], [address], [place], [address] , [facility] 5 12:39:31 Compress ion fracture of thoracic vertebra 20126255608 04 Active 2024 Elmer Tejeda MD [address], [place], [address] , [facility] 5 09:34:47 Pemphigu s 11902024 Active 2024 Elmer Tejeda MD [address], [place], [address] , [facility] 5 11:23:47 Problem Notes None recorded. Procedures Surgical History Date Name Laterality Status Provider Name and Address Organization Details Recorded Time 09/02/19 Medicare Wellness CPT Code, subsequent completed Brianna Urbina RN [facility] [employer] 09/02/2023 11:57:36 08/21/19 Medicare Wellness CPT Code, subsequent completed Amy Vincent RN [facility] [employer] 08/20/2022 10:29:04 Orthopedic Surgery completed Not Available [facility] 02:42:55 colonoscopy completed Not Available [facility]22 02:42:55 Imaging Results None recorded. Procedure Notes None recorded. Medical Equipment None Reported. Allergies No known drug allergies Medications Name Sig Start Date Stop Date Status Note LastModified by Organization Details LastModified Time lido2%/ny yr996v/pr edn15/5 susp SWISH AND SWALLOW 5-10ML BY [...] TIMES DAILY NEEDED. RINSE MOUTH AFTER USE 05/12/ 2025 active Not Available Not Available Not Avai [...] No t Available atenolol 100 mg tablet Take 1 tablet by mouth once daily 2024 active Not Available Not Available Not Avai lable hydrocodo ne 5 mg-acetam inophen 325 mg [...] Pulse oximetry Inhaled oxygen flow rate Systolic And Diastolic Provider Name and Address Organization Details Last Updated DateTime 5 175.26 cm 22.2 kg/m2 80211.8 6 g 97.6 [degF] 97 /min 96 % 96 % 2 L/min 119/78 mm[Hg] Qiana Herndon [employer] 5 12:32:51 Date Recorded Body height Body mass index (BMI) Body weight Body temperature Heart rate Oxygen saturation Oxygen saturation in Arterial blood by Pulse oximetry Inhaled oxygen flow rate Systolic And Diastolic Provider Name and Address Organization Details Last Updated DateTime 5 175.26 cm 21.7 kg/m2 81678.0 8 g 97.6 [degF] 89 /min 93 % 93 % 2 L/min 118/76 mm[Hg] Qiana mi [facility] 5 11:07:24 Date Recorded Body height Body mass index (BMI) Body weight Body temperature Heart rate Oxygen saturation Oxygen saturation in Arterial blood by Pulse oximetry Systolic And Diastolic Provider Name and Address Organization Details Last Updated DateTime 4 175.26 cm 25.5 kg/m2 38107.4 8 g 96.8 [degF] 77 /min 93 % 93 % 116/70 mm[Hg] ROYER Caro [facility] 4 10:51:22 Date Recorded Body height Body mass index (BMI) Body weight Body temperature Heart rate Oxygen saturation Oxygen saturation in Arterial blood by Pulse oximetry Systolic And Diastolic Provider Name and Address Organization Details Last Updated DateTime 4 175.26 cm 24.2 kg/m2 38429.1 5 g 97.4 [degF] 89 /min 90 % 90 % 120/66 mm[Hg] Krystina Reginald ROYER lynn MD [employer] [facility] [employer] [facility] 4 14:02:38 Date Recorded Body weight Body mass index (BMI) Body height Body temperature Heart rate Oxygen saturation Oxygen saturation in Arterial blood by Pulse oximetry Systolic And Diastolic Provider Name and Address Organization Details Last Updated DateTime 4 50361 g 23.2 kg/m2 175.26 cm 97.7 [degF] 95 /min 97 % 97 % 116/68 mm[Hg] Krystina Reginald ROYER lynn MD [employer] [facility] [employer] [facility] 4 10:46:53 Social History Question Answer Notes LastModified by Organization Details LastModified Time Tobacco Smoking Status Former Smoker Quit- 2005 Radha Nowak RN [facility], [facility] [employer] [facility] 04/19/2023 10:06:59 Do You Have An Advance Directive? Yes [id number] Information not available 07/18/2022 Do You Wear A Helmet When Biking? No Information not available 04/19/2023 Are You Blind Or Do You Have Difficulty Seeing? No Information not available 04/19/2023 What Is Your Level Of Caffeine Consumption? Occasional 1 Cup Coffe In The Morning [id number] Information not available 07/18/2022 How Much Tobacco Do You Chew? None [id number] Information not available 07/18/2022 Are You Deaf Or Do You Have Serious Difficulty Hearing? No Information not available 04/19/2023 What Type Of Diet Are You Following? REGULAR [id number] Information not available 07/18/2022 Which Illicit Or Recreational Drugs Have You Used? None [email or web address] Information not available 04/19/2023 What Is The Highest Grade Or Level Of School You Have Completed Or The Highest Degree You Have Received? [id number] [email or web address] Information not available 04/19/2023 Have There Been Any Changes To Your Family Or Social Situation? No [email or web address] Information not available 04/19/2023 What Is The Fluoride Status Of Your Home? Fluoridated [email or web address] Information not available 04/19/2023 When Did You Quit Smoking? 16+yearssincelastc igarette [email or web address] Information not available 04/19/2023 Are There Any Guns Present In Your Home? No [email or web address] Information not available 04/19/2023 Do You Use Insect Repellent Routinely? No [email or web address] Information not available 04/19/2023 Where Do You Live? SingleLevelHouse [email or web address] Information not available 04/19/2023 Advance Directive- Providers Has Reviewed Directive And Consents To Follow Them (insert Provider Name With Any Objectives In Notes Field) Yes Information not available 08/20/2022 Guns Present In The Home? Yes [email or web address] Information not available 09/02/2023 Are You Able To Care For Yourself? Yes [email or web address] Information not available 08/20/2022 Are You Blind Or Do Yo Have Difficulty Seeing? No [email or web address] Information not available 08/20/2022 Are You Deaf Or Do You Have Serious Difficulty Hearing? No Information not available 08/20/2022 General Stress Level? Low [email or web address] Information not available 08/20/2022 Live Alone Of With Others? With Others Information not available 08/20/2022 Do You Have A Medical Power Of Customer Service Clerk? Yes [email or web address] Information not available 04/19/2023 What Was The Date Of Your Most Recent Tobacco Screening? 09/02/2023 [email or web address] Information not available 09/02/2023 Do You Have Any Pets? No Information not available 04/19/2023 What Is Your Relationship Status? [id number] Information not available 07/18/2022 Do You Use Your Seat Belt Or Car Seat Routinely? Yes [email or web address] Information not available 04/19/2023 Do You Have Smoke And Carbon Monoxide Detectors In Your Home? Yes [email or web address] Information not available 04/19/2023 At What Age Did You Start Smoking Tobacco? 12 [email or web address] Information not available 04/19/2023 Are You Passively Exposed To Smoke? No [email or web address] Information not available 04/19/2023 How Much Tobacco Do You Smoke? 3+ PPD [id number] Information not available 07/18/2022 Do You Use Sunscreen Routinely? No [email or web address] Information not available 04/19/2023 Has Tobacco Cessation Counseling Been Provided? No [email or web address] Information not available 04/19/2023 How Many Years Have You Smoked Tobacco? 43 [email or web address] Information not available 04/19/2023 Have You Recently Traveled Abroad? Yes Last Mo Went To [place] Information not available 04/19/2023 Do You Have Difficulty Walking Or Climbing Stairs? No [email or web address] Information not available 04/19/2023 Do You Have Any Dietary Restrictions? No [email or web address] Information not available 04/19/2023 Sex: Male Functional Status Question Answer Note LastModified by Organizat ion Details LastModified Time Do you use any illicit or recreational drugs? No [email or web address] Information not available 04/19/2023 Do you or have you ever used any other forms of tobacco or nicotine? No [email or web address] Information not available 04/19/2023 What is your level of alcohol consumption? Moderate 2-3x/wk [email or web address] Information not available 09/02/2023 Do you or have you ever used smokeless tobacco? Never used smokeless tobacco [id number] Information not available 07/18/2022 Do you have transportation difficulties? No [email or web address] Information not available 04/19/2023 Are you able to walk? YESWOREST [email or web address] Information not available 04/19/2023 Do you have difficulty doing errands alone? No [email or web address] Information not available 04/19/2023 Are you able to care for yourself independently? Yes [email or web address] Information not available 04/19/2023 What is your occupation? Retired [email or web address] Information not available 04/19/2023 Do you have difficulty dressing, bathing, grooming, or toileting? No [email or web address] Information not available 04/19/2023 Do you or have you ever used e-cigarettes or vape? Never used electronic cigarettes [email or web address] Information not available 04/19/2023 What is your exercise level? Occasional [id number] Information not available 07/18/2022 Mental Status Question Answer Note LastModified by Organizat ion Details LastModified Time Do you feel stressed (tense, restless, nervous, or anxious, or unable to sleep at night)? [id number] Information not available 04/19/2023 Do you have difficulty concentrating, remembering or making decisions? No [email or web address] Information no t available 04/19/2023 Family History Relationship Description Onset Age of this Age Resolved Age Notes LastModified by Organization Details LastModified Time Mother Malignant neoplasm of lung [id number] Not available 07/18/2022 02:42:57 Notes:Blood clot- father Medical History Condition Response COPD Y HIGH CHOLESTEROL / HYPERLIPIDEMIA Y GOUT Y HYPERTENSION Y GERD/NAUSEA Y Immunizations Vaccine Type Date Status Note Provider Nam e and Address Organization Details Recorded Time COVID-19, mRNA, LNP-S, PF, 30 mcg/0.3 mL dose 1 completed Not Available [facility] 07/18/2022 02:54:36 Influenza, high-dose, quadrivalent, PF 1 completed Not Available [facility] 07/18/2022 02:54:36 SARS-COV-2 (COVID-19) vaccine, UNSPECIFIED 1 completed Not Available [facility] 07/18/2022 02:54:37 SARS-COV-2 (COVID-19) vaccine, UNSPECIFIED 1 completed Not Available [facility] 07/18/2022 02:54:37 Influenza, high-dose, trivalent, PF 9 completed Not Available [facility] 07/18/2022 02:54:37 Influenza, split virus, trivalent, preservative 7 completed Not Available [facility] 07/18/2022 02:54:37 pneumococcal polysaccharide PPV23 7 completed Not Available [facility] 07/18/2022 02:54:37 Influenza, high-dose, trivalent, PF 0 completed Not Available [employer] 07/18/2022 02:54:37 influenza nasal, unspecified formulation 5 completed Not Available [facility] 07/18/2022 02:54:37 pneumococcal polysaccharide PPV23 4 completed Not Available [facility] 07/18/2022 02:54:37 Influenza, split virus, trivalent, PF 4 completed Not Available [facility] 07/18/2022 02:54:37 Past Encounters Encounter ID Performer Location Encounter Start Date Encounter Closed Date Diagnosis/Indication Diagnosis SNOMED-CT Code Diagnosis ICD10 Code Diagnosis Note [id number] Elmer Tejeda MD [facility] [address] [facility] [place] [address] 08/30/2020 00:00:00 08/30/2020 12:16:34 [id number] _ATHN_MIGR ATION_1 _ATHENA_M IGRATION_ DEFAULT_1 _1 , 10/12/2020 00:00:00 10/12/2020 11:39:09 [id number] MD JEFF RodriguezS_[facility]G Internal [facility] [address] [facility] [place] [address] 12/27/2020 00:00:00 12/27/2020 10:48:46 [id number] MD HENNY Rodriguez_GMG Internal [facility] [address] [facility] [place] [address] 04/26/2021 00:00:00 04/26/2021 13:17:38 [id number] MD HENNY Rodriguez_GMAlex Internal Med [address] [facility] [place] [address] 08/28/2021 00:00:00 08/28/2021 10:02:42 [id number] MD HENNY Rodriguez_GMG Internal Med [address] [facility] [place] [address] 12/18/2021 00:00:00 12/18/2021 10:10:52 [id number] MD JEFF RodriguezS[facility] Internal [address] [place] [address]. [place] [address] 04/19/2022 00:00:00 04/19/2022 10:09:01 [id number] Elmer Tejeda MD S_GMG Internal [address] [facility] [place] [address] 06/07/2022 00:00:00 06/07/2022 12:04:24 [id number] MD JEFF RodriguezS[facility]G Internal Med [facility] [address] [facility] [place] [address] 08/20/2022 09:52:55 08/20/2022 10:29:50 Essential hypertension 74589985 I10 Under control Chronic ob structive pulmonary disease 75203566 J44.9 Under control with inhalers Gout 33001158 M10.9 no recurrence Hyperlipidemia 52821811 E78.5 Stable watch diet Gastroesop hageal reflux disease 524920053 K21.9 Better Erectile dysfunction 860 848312 F52.21 Meds help Malignant neoplasm of prostate 371970573 C61 PSA- stable Adult heal th examination 834511092 Z00.00 Colonoscop y- 11/2020, polyp, next in 5 yrsPSA- re vnar 2016 @ Jan umovax- 04/2014, 02/2017[facility] T- 10/05/2020 FLU- 2COV ID- #1- 06/23/20, #2- 07/26/20, all boosters Pleural effusion 8057161 8 J90 recurrence , seeing pulm History of polyp of colon 565148944 Z86.010 Liver func tion tests outside reference range 185708179 R94.5 Solitary n odule of lung 875252551 R91.1 Family his tory of aneurysm of thoracic aorta 937798920 Z82.49 Thrombosis of thoracic aorta 76572664 I74.11 on xarelto, needs duration, he will discuss with cardiology Screening for disorder 736046740 Z13.9 [id number] Elmer Tejeda MD [facility] Internal Med [address] [facility] [place] [address] 12/20/2022 10:00:02 12/20/2022 10:42:27 Essential hypertension 07426945 I10 Under control Chronic ob structive pulmonary disease 47855846 J44.9 Under control with inhalers, o2 as needed Gout 09714093 M10.9 no recurrence Hyperlipidemia 24830868 E78.5 Stable watch diet Gastroesop hageal reflux disease 713937493 K21.9 Better Malignant neoplasm of prostate 139252580 C61 PSA- stable Adult heal th examination 434439657 Z00.00 Colonoscop y- 11/2020, polyp, next in 5 yrsPSA- 2Pre vnsil 2016 @ Jan lisax- 04/2014, 02/2017[facility] T- 10/05/2020 FLU- OV ID- #1- 06/23/20, #2- 07/26/20, all boosters Pleural effusion 5537843 8 J90 improved History of polyp of colon 103904614 Z86.010 Family his tory of aneurysm of thoracic aorta 666005734 Z82.49 seeing cardiology Thrombosis of thoracic aorta 86444828 I74.11 on xarelto, he needs it for life long due to previous h/o of DVT [id number] Elmer Tejeda MD [facility] Internal Med [address] [facility] [place] [address] 04/19/2023 10:04:21 04/22/2023 09:55:17 Essential hypertension 71296318 I10 watch Chronic ob structive pulmonary disease 74501183 J44.9 Under control with inhalers, o2 as needed Gout 11259675 M10.9 no recurrence Hyperlipidemia 57444465 E78.5 Stable watch diet Gastroesop hageal reflux disease 662118764 K21.9 Better Malignant neoplasm of prostate 125397732 C61 PSA- stable Pleural effusion 2062881 8 J90 improved History of polyp of colon 781760890 Z86.010 Family his tory of aneurysm of thoracic aorta 727219861 Z82.49 seeing cardiology Thrombosis of thoracic aorta 73644059 I74.11 on xarelto, he needs it for life long due to previous h/o of DVT Adult heal th examination 038462234 Z00.00 Colonoscop y- 11/2020, polyp, next in 5 yrsPSA- 2022 at urology , was 0.4Prevnar 2016 @ Jan lisax- 04/2014, 02/2017[facility] T- 10/05/2020 FLU- 2COV ID- #1- 06/23/20, #2- 07/26/20, all boosters Upper resp iratory infection 04656739 J06.9 mucinex prn , call next week if not better [id number] Elmer Tejeda MD [facility] Internal [address] [place] [address] 09/02/2023 11:39:10 09/02/2023 12:15:37 Essential hypertension 03035687 I10 ^ the amlodipine Chronic ob structive pulmonary disease 63303707 J44.9 Under control with inhalers, o2 as needed Gout 80566351 M10.9 no recurrence Hyperlipidemia 34880292 E78.5 Stable watch diet Gastroesop hageal reflux disease 961542621 K21.9 Better Malignant neoplasm of prostate 164377820 C61 PSA- stable Pleural effusion 5623544 8 J90 improved Family his tory of aneurysm of thoracic aorta 049033276 Z82.49 seeing cardiology Thrombosis of thoracic aorta 69269760 I74.11 on xarelto, he needs it for life long due to previous h/o of DVT Adult heal th examination 241004768 Z00.00 Colonoscop y- 11/2020, polyp, next in 5 yrsPSA- 2022 at urology , was 0.4Prevnar 2016 @ rubénjonelle umovax- 04/2014, 02/2017[facility] T- 10/05/2020 , CT-Chest- 12/18/2022, PET- 09/18/2022 FLU- 02/2022, 02/22/2023R SV- 02/22/2023 OVID- #1- 06/23/20, #2- 07/26/20, 02/28/2023 all boosters Acid reflux 794932916 K2 1.9 Screening for disorder 726059801 Z13.9 [id number] Elmer Tejeda MD S_[facility]G Internal [address] [facility] [place] [address] 12/31/2023 10:43:14 12/31/2023 11:14:03 Essential hypertension 35529150 I10 better since dose was increased Chronic ob structive pulmonary disease 08914977 J44.9 Under control with inhalers, o2 as needed Gout 16515159 M10.9 no recurrence Hyperlipidemia 34804177 E78.5 Stable watch diet Gastroesop hageal reflux disease 268707840 K21.9 Better Malignant neoplasm of prostate 238982911 C61 PSA- stable, being li at urology Pleural effusion 6699825 8 J90 improved Thrombosis of thoracic aorta 03722868 I74.11 on xarelto, he needs it for life long due to previous h/o of DVT Acid reflux 461559724 K2 1.9 meds help Adult heal th examination 710549597 Z00.00 Colonoscop y- 11/2020, polyp, next [facility]- 04/2014, 02/2017[facility] T- 10/05/2020 , CT-Chest- 12/18/2022, PET- 09/18/2022 FLU- 02/2022, 02/22/2023R SV- 02/22/2023 OVID- #1- 06/23/20, #2- 07/26/20, 02/28/2023 all boosters Ex-smoker 5575282 Z87.89 1 has quit long time ago Malignant neoplasm of lung 691086183 C34.90 s/p RT, getting CT chest for f/u next month [id number] Elmer Tejeda MD [facility] Internal [address] [place] [address] 02/20/2024 13:58:54 02/20/2024 14:37:06 Edema of lower extremity 903881417 R60.0 could be due to amlodipine , will cut done the dose to 5 mgwill try Furosemide less likely DVT, although at high risk due yo cancer but already on xarelto Essential hypertension 18836791 I10 decrease the dose [id number] Elmer Tejeda MD [facility] Internal [address] [place] [address] 03/24/2024 10:39:30 03/24/2024 11:02:13 Essential hypertension 19226673 I10 under control Edema 336122638 R60.9 improvedst op furosemide call if starts swelling again [id number] Elmer Tejeda MD S_[facility] Internal Med [address] [place] [address] 06/17/2024 12:20:12 06/17/2024 12:48:52 Candidiasis of mouth 46546502 B37.0 [id number] Elmer Tejeda MD [facility] Internal [address] [place] [address] 09/14/2024 10:56:53 09/14/2024 12:29:50 Essential hypertension 15104166 I10 under control Chronic ob structive pulmonary disease 68848230 J44.9 Under control with inhalers, o2 as needed Gout 35592066 M10.9 no recurrence Hyperlipidemia 88168838 E78.5 Stable watch diet Gastroesop hageal reflux disease 531356219 K21.9 meds help Malignant neoplasm of prostate 780392207 C61 PSA- stable, being done at urology Pleural effusion 6140830 8 J90 improved Thrombosis of thoracic aorta 54785817 I74.11 on xarelto, he needs it for life long due to previous h/o of DVT Acid reflux 610048206 K2 1.9 meds help Adult heal th examination 870159146 Z00.00 Colonoscop y- 11/2020, polyp, next in 5 yrsPSA- at urologyP gallito 2016 @ Jan umovax- 04/2014, 02/2017[facility] T- 10/05/2020 , CT-Chest- 12/18/2022, PET- 09/18/2022 FLU- 02/2022, 02/22/2023R SV- 02/22/2023 OVID- #1- 06/23/20, #2- 07/26/20, 02/28/2023 all boosterssh ingrix x 2 Ex-smoker 0737020 Z87.89 1 has quit long time ago Malignant neoplasm of lung 528836463 C34.90 s/p RT, Pemphigus 39297614 L10.9 better Health Concerns Section Related Observation LastModified by Organization Detai ls LastModified Time None Recorded Concern Status LastModified by Organization Details LastModified Time None Recorded Advance Directives Directive Y: Payers Insurance Date Sequence Insurance Name Policy Number Policy Leonard Covered Member ID Leonard Member ID Guarantor Name 11/03/2024 [facility] Donta [facility] Donta Doherty 11/03/2024 1 [place] Donta Doherty [id number] Donta Doherty 11/03/2024 2 [place] [employer] [place] (MEDICARE SUPPLEMENT) PLAN G Donta Doherty [id number] Donta Doherty
--- OUTSIDE RECORDS SUMMARY | 2024-12-14 08:44 | XMS_ITS | Encounter Summary ---
Author Organization [facility] Address [address] [place] [address] Phone Care Team Providers Care Restaurant General Manager Name Role Phone Martin Tejeda MD Primary Care Provider [phone] Encounter Details Date Type Department Care Team (Late st Contact Info) Description 12/02/2024 Results Follow-Up [facility] Dermatology [address] [facility] Outpatient Health [address] [place] [address] Farhad Arriola MD [address] [facility] [address] [place] [id number] BLOOD MISC TO [place] Social History Tobacco Use Types Packs/Day Years Used Date Smoking Tobacco: Former Cigarettes Smokeless Tobacco: Former Sex and Gender Information Value Date Recorded Sex Assigned at Not on file Legal Sex Male 12:15 PM CORD CUTTER Gender Identity Not on file Sexual Orientation Not on file documented as of this encounter Miscellaneous Notes * Result Encounter Note - Farhad Arriola MD - 12/02/2024 3:48 PM CDT Bloodwork for pemphigus normal The Rituxan infusion for February may not be necessary as symptoms should improve on their own without further therapy Call me or reach out if you have further questions. Happy to discuss or just move up appointment from May 2025 if needed documented in this encounter Plan of Treatment Not on file documented as of this encounter Visit Diagnoses Not on filedocumented in this encounter Care Teams Restaurant General Manager Relationship Specialty Start Date End Date Martin Tejeda MD PCP - General 03/09/17 documented as of this encounter
--- OUTSIDE RECORDS SUMMARY | 2024-12-14 08:44 | XMS_ITS | Encounter Summary ---
Author Organization [facility] Address [address] [place] [address] Phone Care Team Providers Care Delivery And Installation Subcontractor Name Role Phone Martin Tejeda MD Primary Care Provider [phone] Encounter Details Date Type Department Care Team (Late st Contact Info) Description 07/30/2024 Orders Only [facility] Scanning, Provider Social History Tobacco Use Types Packs/Day Years Used Date Smoking Tobacco: Former Cigarettes Smokeless Tobacco: Former Sex and Gender Information Value Date Recorded Sex Assigned at Not on file Legal Sex Male 12:15 PM COPYRIGHT MANAGER Gender Identity Not on file Sexual Orientation [...] on filedocumented in this encounter Care Teams Delivery And Installation Subcontractor Relationship Specialty Start Date End Date Martin Tejeda MD PCP - General 03/09/17 documented as of this encounter
--- OUTSIDE RECORDS SUMMARY | 2024-12-14 08:45 | XMS_ITS | Clinical Summary ---
Author Organization [facility] Address [address] [place] [address] Phone Care Team Providers Care Medical Sales Consultant Name Role Phone Martin Tejeda MD Primary Care Provider [phone] Allergies No known active allergies Medications atenoloL [...] Encounters Date Type Department Care Team Description 11/13/2024 12:30 PM CDT Office Visit [facility] Oncology and Hematology - [address] [place] [address] Cash Chamberlain MD Malignant neoplasm of left lung, unspecified part of lung (CMS/HCC) (Primary Dx) 11/12/2024 Orders Only [facility] Oncology and Hematology - [address] [place] [address] Cash Chamberlain MD 11/10/2024 Orders Only [facility] Oncology and Hematology - [address] [place] [address] Cash Chamberlain MD 11/04/2024 Orders Only [facility] Oncology and Hematology - [place] [address] [place] [address] Cash Chamberlain MD 11/03/2024 External Device Data STL ABSTRACTION Provider, Abstract 10/08/2024 External Device Data STL ABSTRACTION Provider, Abstract 10/08/2024 External Device Data STL ABSTRACTION Provider, Abstract 10/07/2024 External Device Data STL ABSTRACTION Provider, Abstract 10/07/2024 External Device Data STL ABSTRACTION Provider, Abstract 10/06/2024 External Device Data STL ABSTRACTION Provider, Abstract [...] CDT Gender Identity Male 07/03/2024 1:54 PM ACADEMIC SUPPORT COORDINATOR Sexual Orientation Not on file Last Filed Vital Signs Vital Sign Reading Time Taken Comments Blood Pressure 105/71 11/13/2024 12:17 PM CDT Pulse 88 11/13/2024 12:17 PM CDT Temperature 36.1 C (97 F) 11/13/2024 12:17 PM CDT Respiratory Rate 15 11/13/2024 12:1 7 PM CDT Oxygen Saturation 92% 11/13/2024 12: 17 PM CDT Inhaled Oxygen Concentration - - Weight 67.5 kg (148 lb 14.4 oz) 025 12:17 PM CDT Height 177.8 cm (5' 10) 11/11/2023 1:22 PM CDT Body Mass Index 21.36 11/11/2023 1:22 PM CDT Plan of Treatment Upcoming Encounters Date Type Department Care Team (Late st Contact Info) Description 02/15/2025 11:30 AM CDT Office Visit [facility] Oncology and Hematology - [place] [address] [facility] [address] [place] [address] Cash Chamberlain MD [address] [facility] [address] [place] [address] Health Maintenance Due Date Last Done Comments DTAP/TDAP/TD VACCINES (1 - Tdap) 12/08/1967 ZOSTER VACCINE (1 of 2) 1998 PNEUMOCOCCAL VACCINE 50+ YEA RS (2 of 2 - PCV) 02/23/2018 02/23/2017, 04/29/2014 RSV VACCINE (60+ or ) (1 - 1-dose 75+ series) 12/08/2023 INFLUENZA VACCINE (#1) 2024 , 02/29/2020, 03/09/2019, Additional history exists Procedures Procedure Name Priority Date/Time Associated Diagnosis Comments COMPREHENSIVE METABOLIC PANEL Routine 11/11/2024 8:02 AM CDT CREATININE Routine 11/04/2024 5:[address] CHEST W CONTRAST Routine 11/04/2024 3 :42 PM CDT from Last 3 Months Results * COMPREHENSIVE METABOLIC PANEL (11/11/2024 8:02 AM CDT) Blood us Cash Chamberlain MD CHEMISTRY ORDERABLES Final Resu lt * CREATININE (11/04/2024 5:09 PM CDT) Blood us Cash Chamberlain MD CHEMISTRY ORDERABLES Final Resu lt * CT CHEST W CONTRAST (11/04/2024 3:42 PM CDT) Anatomical Region Laterality Modality Chest Computed Tomogra phy us Cash Chamberlain MD CT ORDERABLES Final Result from Last 3 Months Insurance MEDICARE PART A AND B [facility] MEDICARE PART A AND B [facility] Care Teams Medical Sales Consultant Relationship Specialty Start Date End Date Martin Tejeda MD [address] [place] [phone] PCP - General Internal Medicine 11/11/23
--- OUTSIDE RECORDS SUMMARY | 2024-12-14 08:45 | XMS_ITS | Clinical Summary ---
Author Organization [facility] [address] Address [address] [place] [address] Care Team Providers Care Financial Reporting Accountant Name Role Phone Martin Tejeda MD Primary [...] Do not swallow. 350 mL 3 5 11/26/19 25 Discontinu ed(Reorder ) Active Problems Problem Noted Date Diagnosed Date Pemphigus vulgaris 07/28/2024 Encounters Date Type Department Care Team Description 12/02/2024 Results Follow-Up [facility] Dermatology [address] [place] [address] Outpatient Health [address] [place] [phone] Farhad Arriola MD BLOOD MISC TO [place]MON[place] 11/25/2024 10:25 AM CDT Lab [facility] Outpatient Health [address] [place] [address] [place] [address] Pemphigus vulgaris (HCC) 11/25/2024 9:45 AM CDT Office Visit [facility] Dermatology [address] [place] [address] Outpatient Health [address] [place] [phone] Farhad Arriola MD Pemphigus vulgaris (HCC) (Primary Dx) from Last 3 Months Social History Tobacco Use Types Packs/Day Years Used Date Smoking Tobacco: Former Cigarettes Smokeless Tobacco: Former Tobacco Cessation:Counseling Given: Not Answered Sex and Gender Information Value Date Recorded Sex Assigned at Not on file Legal Sex Male 12:15 PM PAN CLEANER Gender Identity Not on file Sexual Orientation [...] 62.6 kg (138 lb) 07/15/2024 1:14 PM PAN CLEANER Height 180.3 cm (5' 10.98) 03/11/2017 11:36 AM CDT Body Mass Index 19.26 03/11/2017 11:36 AM CDT Plan of Treatment Health Maintenance Due Date Last Done Comments Depression Screening 1950 Fall Risk Assessment 1950 DTaP/Tdap/Td Vaccine (1 - Tdap) 12/08/1959 Hepatitis B Screening 1966 Abdominal Aortic Aneurysm (A AA) Screen 2013 Well Visit 65+ 2013 Zoster Vaccine (2 of 2) 09/08/2023 07/14/2023 Covid-19 Vaccine (8 - 2023-2 5 season) 2024 03/01/2023, 02/18/2022, 09/26/2021, Additional history exists Influenza Vaccine (#1) 2025 , 02/18/2022, 02/23/2021, Additional history exists Pneumococcal vaccine 65+ Completed 017, 02/17/2016, 04/29/2014 Hepatitis C Screening Completed 07/31/2024 Procedures Procedure Name Priority Date/Time Associated Diagnosis Comments BLOOD MISC TO REDMOND Routine 11/25/2024 10 :33 AM CDT HEPATITIS PANEL, ACUTE Routine 07/31/2024 12:00 PM CDT High risk medication use from Last 3 Months or Most Recently Relevant to Health Maintenance Results * BLOOD MISC TO REDMOND (11/25/2024 10:33 AM CDT) Test name, chem DSGAB,DESMOG LEIN 1 AND 3, SERUM(PEMPHI SLADE) [place] ref Lab Misc See Footnote LEXUS GLOVER Comment: Test Result Flag Unit RefValue Desmoglein 1 and 3, Serum DSG 1 8 RU/mL <20 DSG 3 4 RU/mL <20 ADDITIONAL INFORMATION Dsg1 and Dsg3 are intended for in vitro diagnostic use as an aid in the diagnosis of pemphigus and related entities, and should be interpreted in conjunction with other laboratory and clinical findings. This test has been modified from the residential instructor's instructions. Its performance characteristics were determined by [facility] in a manner consistent with CLIA requirements. This test has not been cleared or approved by the U.S. Food and Drug Administration. Test Performed by: [address] [address] Emergency Room Nurse: Tyler Blanco Ph.D.; CLIA# [id number] Blood 11/25/2024 10:3 3 AM CDT 11/25/2024 2:41 PM CDT Farhad Arriola MD LAB BLOOD ORDERABLES Landy trejo Result [facility] Department [place] [address] [place] ref Lab * Hepatitis panel, acute Blood (07/31/2024 12:00 [...] revised on 2019. HepBsAg Nonreactive Nonreactive LEXUS PRETTY Blood 07/31/2024 12:0 0 PM CDT 07/31/2024 4:00 PM CDT Farhad Arriola MD LAB MICROBIOLOGY - GENERA L ORDERABLES Final Result LEXUS PRETTY [address] Department [place] [address] from Last 3 Months or Most Recently Relevant to Health Maintenance Insurance MEDICARE [facility] MEDICARE [facility] [address] MEDICARE [facility] Care Teams Financial Reporting Accountant Relationship Specialty Start Date End Date Martin Tejeda MD [phone] (work) PCP - General 03/09/17
--- OUTSIDE RECORDS SUMMARY | 2024-12-14 08:45 | XMS_ITS | Referral Summary ---
Author Organization [facility] [address] Address [address] [place] [address] Care Team Providers Care Information Technology Auditor Name Role Phone Martin Tejeda MD Primary Care Provider Encounters Date Type Department Care Team Description 12/02/2024 Results Follow-Up [facility] Dermatology [address] [place] [address] Outpatient Health [address] [place] [phone] Farhad Arriola MD BLOOD MISC TO [place] 11/25/2024 10:25 AM CDT Lab [facility] Outpatient Health [address] [place] [address] [place] [address] Pemphigus vulgaris (HCC) 11/25/2024 9:45 AM CDT Office Visit [facility] Dermatology [address] [place] [address] Outpatient Health [address] [place] [phone] Farhad Arriola MD Pemphigus vulgaris (HCC) (Primary Dx) from Last 3 Months Allergies No known [...] on file Legal Sex Male 12:15 PM ELASTIC ATTACHER OVERLOCK Gender Identity Not on file Sexual Orientation [...] 62.6 kg (138 lb) 07/15/2024 1:14 PM ELASTIC ATTACHER OVERLOCK Height 180.3 cm (5' 10.98) 03/11/2017 11:36 AM CDT Body Mass Index 19.26 03/11/2017 11:36 AM CDT Plan of Treatment Not on file Procedures Procedure Name Priority Date/Time Associated Diagnosis Comments BLOOD MISC TO [place] Routine 11/25/2024 10 :33 AM CDT HEPATITIS PANEL, ACUTE Routine 07/31/2024 12:00 PM CDT High risk medication use from Last 3 Months or Most Recently Relevant to Health Maintenance Results * BLOOD MISC TO [place] (11/25/2024 10:33 AM CDT) Test name, chem DSGAB,DESMOG LEIN 1 AND 3, SERUM(PEMPHI SLADE) [place] ref Lab Misc See Footnote LEXUS GLOVER [...] This test has been modified from the manager of tires sales's instructions. Its performance characteristics were determined by [facility] in a manner consistent with CLIA requirements. This test has not been cleared or approved by the U.S. Food and Drug Administration. Test Performed by: [facility] - [address] [address] Technologist Infectious Disease: Tyler Blanco Ph.D.; CLIA# [id number] Blood 11/25/2024 10:3 3 AM CDT 11/25/2024 2:41 PM CDT Farhad Arriola MD LAB BLOOD ORDERABLES Landy l Result LEXUS GLOVER Pallavi [facility] Department [place] [address] [place] ref Lab * Hepatitis panel, acute Blood (07/31/2024 12:00 PM CDT) Hep A IgM Nonreactive Nonreactive Comment: Interpretive Data: If Hep A IgM Ab is reported as Equivocal, a new sample should be drawn in two weeks for testing. Current interpretive data was last revised on 19. Hep B core IgM Nonreactive Nonreactive CERNER Comment: Interpretive Data If HepB Core IgM [...] - GENERA L ORDERABLES Final Result LEXUS [address] Department [place] [address] from Last 3 Months or Most Recently Relevant to Health Maintenance Insurance MEDICARE [facility] MEDICARE [facility] MEDICARE [facility] Care Teams Information Technology Auditor Relationship Specialty Start Date End Date Martin Tejeda MD PCP - General 03/09/17
== END 2024-12-14 08:37 | disposition home or self-care (01) ==
LOC: ANHLAB 08:38 → ANHCARD 08:59
PROVIDERS: PCP Internal Medicine; Visit Provider Nurse Practitioner Family
DX: I49.9 Cardiac arrhythmia, unspecified (principal); R94.31 Abnormal electrocardiogram [ECG] [EKG]
CPT/HCPCS: 93005

== ENCOUNTER 2024-12-24 09:18 | Outpatient (CLI) | payer MEDICARE, OTHER, SELFPAY ==
--- NOTE | ~2024-12-24 | NM_ITS ---
EXAMINATION: NM pam stress w perfusion DATE: 12/24/2024 12:09 INDICATION: Other forms of dyspnea TECHNIQUE: Rest images were obtained following intravenous administration of 10.4 mCi Tc99m tetrofosm in (Myoview). The patient was infused intravenously with Lexiscan (Regadenoson). Then, 32.7 mCi Tc99m tetrofosmin (Myoview) was administered intravenously, and stress images were obtained. Data was annika nstructed into short axis and horizontal and vertical long axis SPECT images. Gated SPECT images were also obtained. COMPARISON: None. FINDINGS: There is a small mild fixed perfusion defect consistent with infarct at the mid anterolater al and extending to involve a small portion of the apical lateral segment. No reversible ischemia. Th ere is normal left ventricular chamber size, wall motion and ejection fraction. Left ventricular eje ction fraction measures >70%. IMPRESSION: 1. Small mild nonreversible infarct involving the mid anterolateral and small portion of the adjacent apical lateral segment . No reversible ischemia. 2. Left ventricular ejection fraction measuring >70%. Reviewed, dictated and finalized at location A. IMPRESSION: 1. Small mild nonreversible infarct involving the mid anterolateral and small p ortion of the adjacent apical lateral segment . No reversible ischemia. 2. Left ventricular ejection fraction measuring >70%.
--- OUTSIDE RECORDS SUMMARY | 2024-12-24 09:25 | XMS_ITS | Clinical Summary ---
Author Organization [facility] [address] Address [address] [place] [address] Care Team Providers Care Watch Dial Maker Name Role Phone Martin Tejeda MD Primary [...] Department Care Team Description 12/02/2024 Results Follow-Up [facility] [address] [place] [address] Outpatient Health [address] [place] [phone] Farhad Arriola MD BLOOD MISC TO BOSTON 11/25/2024 10:25 AM CDT Lab [facility] [address] [place] [address] [place] [address] Pemphigus vulgaris (HCC) 11/25/2024 9:45 AM CDT Office Visit [facility] [address] [place] [address] Outpatient Health [address] [place] [phone] Farhad Arriola MD Pemphigus vulgaris (HCC) (Primary Dx) from Last 3 Months Social History Tobacco Use Types Packs/Day Years Used Date Smoking Tobacco: Former Cigarettes Smokeless Tobacco: Former Tobacco Cessation:Counseling Given: Not Answered Sex and Gender Information Value Date Recorded Sex Assigned at Not on file Legal Sex Male 12:15 PM CLAM DREDGER Gender Identity Not on file Sexual Orientation [...] 62.6 kg (138 lb) 07/15/2024 1:14 PM CLAM DREDGER Height 180.3 cm (5' 10.98) 03/11/2017 11:36 [...] Date/Time Associated Diagnosis Comments BLOOD MISC TO BOSTON Routine 11/25/2024 10 :33 AM CDT HEPATITIS PANEL, ACUTE Routine 07/31/2024 12:00 PM CDT High risk medication use from Last 3 Months or Most Recently Relevant to Health Maintenance Results * BLOOD MISC TO BOSTON (11/25/2024 10:33 AM CDT) Test name, chem DSGAB,DESMOG LEIN 1 AND 3, SERUM(PEMPHI SLADE) [place] ref Lab Misc See Footnote LEXUS GLOVER [...] This test has been modified from the registered nurse cardiac's instructions. Its performance characteristics were determined by [facility] in a manner consistent with CLIA requirements. This test has not been cleared or approved by the U.S. Food and Drug Administration. Test Performed by: [address] [address] Jr. Systems Administrator: Tyler Blanco Ph.D.; CLIA# [id number] Blood 11/25/2024 10:3 3 AM CDT 11/25/2024 2:41 PM CDT Farhad Arriola MD LAB BLOOD ORDERABLES Landy trejo Result [facility] Department [place] [address] [place] ref Lab * Hepatitis panel, acute Blood [...] GENERA L ORDERABLES Final Result [facility] [address] Department [place] [address] from Last 3 Months or Most Recently Relevant to Health Maintenance Insurance MEDICARE [facility] MEDICARE [facility] [place] [address] MEDICARE [facility] Care Teams Watch Dial Maker Relationship Specialty Start Date End Date Martin Tejeda MD [phone] (work) PCP - General 03/09/17
--- OUTSIDE RECORDS SUMMARY | 2024-12-24 09:25 | XMS_ITS | Encounter Summary ---
Author Organization [facility] Address [address] [place] [address] Phone Care Team Providers Care Hospitalist Program Director Name Role Phone Martin Tejeda MD Primary Care Provider [phone] Encounter Details Date Type Department Care Team (Late st Contact Info) Description 07/30/2024 Orders Only [facility] Scanning, Provider Social History Tobacco Use Types Packs/Day Years Used Date Smoking Tobacco: Former Cigarettes Smokeless Tobacco: Former Sex and Gender Information Value Date Recorded Sex Assigned at Not on file Legal Sex Male 12:15 PM POLICEWOMAN Gender Identity Not on file Sexual Orientation [...] on filedocumented in this encounter Care Teams Hospitalist Program Director Relationship Specialty Start Date End Date Martni Tejeda MD PCP - General 03/09/17 documented as of this encounter
--- OUTSIDE RECORDS SUMMARY | 2024-12-24 09:25 | XMS_ITS | Clinical Summary ---
Author Organization [facility] Address [address] [place] [address] Phone Care Team Providers Care Head Animal Trainer Name Role Phone Martin Tjeeda MD Primary Care Provider [phone] Allergies No known active allergies Medications atenoloL [...] Description 11/13/2024 12:30 PM CDT Office Visit [facility] Oncology and Hematology - [place] [address] [place] [address] Cash Chamberlain MD Malignant neoplasm of left lung, unspecified part of lung (CMS/HCC) (Primary Dx) 11/12/2024 Orders Only [facility] Oncology and Hematology - [place] [address] [place] [address] Cash Chamberlain MD 11/10/2024 Orders Only [facility] Oncology and Hematology - [place] [address] [place] [address] Cash Chamberlain MD 11/04/2024 Orders Only [facility] Oncology and Hematology - [place] [address] [place] [address] Cash Chamberlain MD 11/03/2024 External Device Data [...] CDT Gender Identity Male 07/03/2024 1:54 PM TICKET PRINTER AND TAGGER Sexual Orientation Not on file Last Filed [...] Description 02/15/2025 11:30 AM CDT Office Visit [facility] Oncology and Hematology - [place] [address] [facility] [address] [place] [address] Cash Chamberlain MD [address] [facility] [address] [place] [address] Health Maintenance Due Date Last [...] Months Insurance MEDICARE PART A AND B [facility] MEDICARE PART A AND B [facility] Care Teams Head Animal Trainer Relationship Specialty Start Date End Date Martin Tejeda MD [address] [place] [phone] PCP - General Internal Medicine 11/11/23
--- OUTSIDE RECORDS SUMMARY | 2024-12-24 09:25 | XMS_ITS | Encounter Summary ---
Author Organization [facility] Address [address] [place] [address] Phone Care Team Providers Care Heat Seal Operator Name Role Phone Martin Tejeda MD Primary Care Provider [phone] Encounter Details Date Type Department Care Team (Late st Contact Info) Description 12/02/2024 Results Follow-Up [facility] Dermatology [address] [facility] Outpatient Health [address] [place] [address] Farhad Arriola MD [address] [facility] [address] [place] [id number] BLOOD MISC TO GOWEN Social History Tobacco Use Types Packs/Day Years Used Date Smoking Tobacco: Former Cigarettes Smokeless Tobacco: Former Sex and Gender Information Value Date Recorded Sex Assigned at Not on file 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
--- NOTE | 2024-12-24 10:04 | EST_ITS ---
Patient Info Name: Donta Collins Age: 74 years : 1950 Gender: Male Ht: 70 in Wt: 145 lbs BSA: 1.80 m2 Exam Date: 12/24/2024 10:04 AM Patient Status: O Admit Date: 12/24/2024 Exam Type: CA stress pam w NM A regadenoson stress test was performed. Staff Referring Physician: Duran Waters Attending Provider: Durna Waters Exercise Technologist: Sophia Duke Exercise Physician: Sukhi Aguilera DO Summary 1. 1. Negative lexiscan stress test for ischemic ST changes by ECG criteria. 2. 2. Baseline hypertension. 3. 3. Nuclear scan to follow and will be reported separately. Please correlate with it. 4. 4. Patient informed of the above results. Protocol: Lexiscan Stress ECG Details Stage: REST Duration (min): 1 min : 39 sec HR (bpm): 70 SBP (mmHg): 151 DBP (mmHg): 106 Stage: REST Duration (min): 5 min : 22 sec HR (bpm): 73 SBP (mmHg): 151 DBP (mmHg): 106 Stage: STAGE 1 Duration (min): 0 min : 59 sec HR (bpm): 87 SBP (mmHg): 173 DBP (mmHg): 105 Stage: RECOVERY Duration (min): 1 min : 0 sec HR (bpm): 94 SBP (mmHg): 128 DBP (mmHg): 99 Stage: RECOVERY Duration (min): 2 min : 0 sec HR (bpm): 94 SBP (mmHg): 128 DBP (mmHg): 99 Stage: RECOVERY Duration (min): 3 min : 0 sec HR (bpm): 91 SBP (mmHg): 133 DBP (mmHg): 99 Stage: RECOVERY Duration (min): 4 min : 0 sec HR (bpm): 90 SBP (mmHg): 133 DBP (mmHg): 99 Stage: RECOVERY Duration (min): 4 min : 33 sec HR (bpm): 91 SBP (mmHg): 157 DBP (mmHg): 99 Rest HR: 73 bpm Peak HR: 103 bpm Rest Sys BP: 151 mmHg Peak Sys BP: 173 mmHg Max Pred HR: 144 bpm % Max Pred HR: 72 % Target HR: 122 bpm Max RPP: 17,819 bpm*mmHg Termination Reason: Completed protocol Cardiac Symptoms: Shortness of breath Total Time: 1 min : 0 sec Rest Guthrie BP: 106 mmHg Peak Guthrie BP: 105 mmHg Total Dose: 0.4 mg Resting ECG Sinus rhythm. Stress ECG No ST changes. Arrhythmias None. Report Signatures
== END 2024-12-24 09:19 | disposition home or self-care (01) ==
LOC: ANHCARD 09:19
PROVIDERS: PCP Internal Medicine; Visit Provider Nurse Practitioner Family
DX: R06.09 Other forms of dyspnea (principal); R94.31 Abnormal electrocardiogram [ECG] [EKG]
CPT/HCPCS: 78452; 93017; A9502; J2785

== ENCOUNTER 2025-02-08 08:28 | Outpatient (CLI) | payer MEDICARE, OTHER, SELFPAY ==
--- NOTE | ~2025-02-08 | CT_ITS ---
Exam: CT chest with contrast Clinical History: [Lung cancer. ] Comparison: [ 11/04/2024] Technique: Multiple axial CT images of the chest with IV contrast. Sagittal and coronal reformatted images were obtained. FINDINGS: Lungs and pleura: [ Tracheobronchial tree is patent. Grossly stable emphysema. No pneumothorax. No pleural effusion. Biapical scarring. Stable 9 mm pulmonary nodule in the right lower lobe. Stable scarring in the lingula. Stable 1.6 cm pulmonary nodule in the left perihilar region in the left upper lobe.] Mediastinum and pulmonary danitza: [ No mass or adenopathy.] Axillary/intramammary and supraclavicular: [ No mass or adenopathy.] Heart and great vessels: [ Normal heart size.[ [ No pericardial effusion.] Thoracic aorta is grossly unchanged. Chest Wall: [ Unremarkable.] Upper Abdomen: There are a few too small to characterize low-attenuation lesions in the kidneys. Visualized upper abdomen is grossly unchanged. Osseous structures: [ Multilevel degenerative change in the visualized spine.] Bones appear osteopenic. Stable compression fracture what appears to be the T7 vertebral body. Overall, osseous structures are similar to the prior study. Additional findings: [ None of significance.] IMPRESSION: 1. Stable 1.6 cm pulmonary nodule in the left perihilar region in the left upper lobe. Consider a PET/CT. 2. Stable 9 mm pulmonary nodule in the right lower lobe. Consider a PET/CT. 3. Emphysema. Reviewed, dictated and finalized at location Q. IMPRESSION: 1. Stable 1.6 cm pulmonary nodule in the left perihilar region in the left uppe r lobe. Consider a PET/CT. 2. Stable 9 mm pulmonary nodule in the right lower lobe. Consider a PET/CT. 3. Emphysema.
[2025-02-08 08:47] LABS: Estimated Glomerular Filt Rate > 60
--- OUTSIDE RECORDS SUMMARY | 2025-02-08 09:04 | XMS_ITS | Clinical Summary ---
Author Organization [facility] [address] Address [address] [place] [address] Care Team Providers Care Outside Sales Manager Name Role Phone Martin Tejeda MD [...] Department Care Team Description 12/02/2024 Results Follow-Up [facility] Medicine Dermatology [address] [place] [address] Outpatient Health [address] [place] [phone] Farhad Arriola MD BLOOD MISC TO PALMER 11/25/2024 10:25 AM CDT Lab [facility] Outpatient Health [address] [place] [address] Health [place], [place] [id number] Pemphigus vulgaris (HCC) 11/25/2024 9:45 AM CDT Office Visit [facility] Medicine Dermatology [address] [place] [address] Health [address] [place] [phone] Farhad Arriola MD Pemphigus vulgaris (HCC) (Primary Dx) from Last 3 Months Social History Tobacco Use Types Packs/Day Years Used Date Smoking Tobacco: Former Cigarettes Smokeless Tobacco: Former Tobacco Cessation:Counseling Given: Not Answered Sex and Gender Information Value Date Recorded Sex Assigned at Not on file 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 Gender Identity Not on file Sexual [...] 62.6 kg (138 lb) 07/15/2024 1:14 PM ANIMAL CARE ASSISTANT Height 180.3 cm (5' 10.98) 03/11/2017 11:36 [...] 2) 09/08/2023 07/14/2023 Covid-19 Vaccine (8 - 2024-2 6 season) 2025 03/01/2023, 02/18/2022, 09/26/2021, Additional history exists Influenza Vaccine (#1) 2025 3, 02/18/2022, 02/23/2021, Additional history exists Pneumococcal vaccine 65+ Completed 017, 02/17/2016, 04/29/2014 Hepatitis C Screening Completed 07/31/2024 Procedures Procedure Name Priority Date/Time Associated Diagnosis Comments BLOOD MISC TO PALMER Routine 11/25/2024 10 :33 AM CDT HEPATITIS PANEL, ACUTE Routine 07/31/2024 12:00 PM CDT High risk medication use from Last 3 Months or Most Recently Relevant to Health Maintenance Results * BLOOD MISC TO PALMER (11/25/2024 10:33 AM CDT) Test name, chem DSGAB,DESMOG LEIN 1 AND 3, SERUM(PEMPHI SLADE) [place] ref Lab Misc See Footnote LEXUS GLOVER [...] This test has been modified from the customer service administrator's instructions. Its performance characteristics were determined by [facility] in a manner consistent with CLIA requirements. This test has not been cleared or approved by the U.S. Food and Drug Administration. Test Performed by: [address] [address] [place] Inspector: Tyler Blanco Ph.D.; CLIA# [id number] Blood 11/25/2024 10:3 3 AM CDT 11/25/2024 2:41 PM CDT us Farhad Arriola MD LAB BLOOD ORDERABLES Landy trejo Result [facility] Department [place] [address] [place] ref Lab * Hepatitis panel, acute Blood [...] on 19. Hep C Ab Nonreactive Nonreactive CERNER Comment: Interpretive Data Nonreactive: Antibodies to HCV [...] last revised on 2019. HepBsAg Nonreactive Nonreactive CERNER Blood 07/31/2024 12:0 0 PM CDT 07/31/2024 4:00 PM CDT Farhad Arriola MD LAB MICROBIOLOGY - GENERA L ORDERABLES Final Result Performing Organization Address City/State/ZIP Co tx Phone Number [facility] [phone] Department [place] [address] from Last 3 Months or Most Recently Relevant to Health Maintenance Insurance MEDICARE [facility] MEDICARE [employer] [place] MEDICARE [place] [employer] [place] Care Teams Outside Sales Manager Relationship Specialty Start Date End Date Martin Tejeda MD PCP - General 03/09/17
--- OUTSIDE RECORDS SUMMARY | 2025-02-08 09:04 | XMS_ITS | Clinical Summary ---
Author Organization [facility] Address [address] [place] [address] Care Team Providers Care Director Of Strategic Sales Name Role Phone None, Provider Primary Care Provider Unavaila ble Allergies No known active allergies Social History Tobacco Use Types Packs/Day Years Used Date Smoking Tobacco: Never Assessed Sex and Gender Information Value Date Recorded Sex Assigned at Male 06/29/2024 12:54 PM ADVANCED PRACTICE RN Legal Sex Male 12:47 PM ADVANCED PRACTICE RN Gender Identity Not on file Sexual Orientation Not on file Last Filed Vital Signs Vital Sign Reading Time Taken Comments Blood Pressure 110/77 06/29/2024 3:57 PM ADVANCED PRACTICE RN Pulse 94 06/29/2024 6:48 PM ADVANCED PRACTICE RN Temperature 36.1 C (97 F) 06/29/2024 1:20 PM ADVANCED PRACTICE RN Respiratory Rate 18 06/29/2024 1:20 PM ADVANCED PRACTICE RN Oxygen Saturation 95% 06/29/2024 6:48 PM ADVANCED PRACTICE RN Inhaled Oxygen Concentration - - Weight 68 kg (150 lb) 06/29/2024 1:20 PM ADVANCED PRACTICE RN Height 177.8 cm (5' 10) 06/29/2024 1:20 PM ADVANCED PRACTICE RN Body Mass Index 21.52 06/29/2024 1:20 PM ADVANCED PRACTICE RN Plan of Treatment Health Maintenance Due Date Last Done Comments Hepatitis C 1966 DTaP, Tdap and Td Vaccines ( 1 - Tdap) 12/08/1967 Pneumococcal Vaccine: 50+ Ye ars (1 of 1 - PCV) 1998 Zoster Vaccines (1 of 2) 1998 Annual Medicare Wellness Visit 2013 RSV Immunization or 60+ Years (1 - 1-dose 75+ series) 12/08/2023 COVID-19 Vaccine (1 - 2024-2 5 season) 2025 Meningococcal B Vaccine Aged Out No l onger eligible based on patient's age to complete this topic Meningococcal Vaccine Aged Out No ash donna eligible based on patient's age to complete this topic RSV Immunizations Under 20 Months Aged Out No longer eligible based on patient's age to complete this topic Insurance MEDICARE [facility] Care Teams Director Of Strategic Sales Relationship Specialty Start Date End Date None, Provider, MD PCP - General UNKNOWN PHYSICIAN SPECIALTY 06/29/24
--- OUTSIDE RECORDS SUMMARY | 2025-02-08 09:04 | XMS_ITS | Encounter Summary ---
Author Organization [facility] Address [address] [place] [address] Phone Care Team Providers Care Agricultural Sales Representative Name Role Phone Martin Tejeda MD Primary Care Provider [phone] Encounter Details Date Type Department Care Team (Late st Contact Info) Description 07/30/2024 Orders Only [facility] Scanning, Provider Social History Tobacco Use Types Packs/Day Years Used Date Smoking Tobacco: Former Cigarettes Smokeless Tobacco: Former Sex and Gender Information Value Date Recorded Sex Assigned at Not on file 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
--- OUTSIDE RECORDS SUMMARY | 2025-02-08 09:04 | XMS_ITS | Clinical Summary ---
Author Organization [facility] Address [address] [place] [address] Phone Care Team Providers Care Wirer Passenger Car Name Role Phone Martin Tejeda MD Primary Care Provider [phone] Allergies No known active allergies Medications atenoloL [...] Encounters Date Type Department Care Team Description 01/19/2025 External Device Data STL ABSTRACTION Provider, Abstract 01/05/2025 External Device Data STL ABSTRACTION Provider, Abstract 11/13/2024 12:30 PM CDT Office Visit [facility] Oncology and Hematology - [place] [address] [place] [address] Cash Chamberlain MD Malignant neoplasm of left lung, unspecified part of lung (CMS/HCC) (Primary Dx) 11/12/2024 Orders Only [facility] Oncology and Hematology - [place] [address] [place] [address] Cash Chamberlain MD 11/10/2024 Orders Only [facility] Oncology and Hematology - [place] [address] [place] [address] Cash Chamberlain MD from Last 3 Months [...] CDT Gender Identity Male 07/03/2024 1:54 PM MANDREL PRESS HAND Sexual Orientation Not on file Last Filed [...] Description 02/15/2025 11:30 AM CDT Office Visit [facility] Oncology and Hematology - [place] [address] [facility] [address] [place] [address] Cash Chamberlain MD [address] [facility] [address] [place] [address] Health Maintenance Due Date Last [...] METABOLIC PANEL Routine 11/11/2024 8:02 AM CDT from Last 3 Months Results * COMPREHENSIVE METABOLIC PANEL (11/11/2024 8:02 AM CDT) Blood us Cash Chamberlain MD CHEMISTRY ORDERABLES Final Resu lt from Last 3 Months Insurance MEDICARE PART A AND B [place] [facility] [place] [address] [address] [facility] [address] [facility] Care Teams Wirer Passenger Car Relationship Specialty Start Date End Date Martin Tejeda MD [address] [place] [address] PCP - General Internal Medicine 11/11/23
== END 2025-02-08 08:29 | disposition home or self-care (01) ==
PROVIDERS: PCP Internal Medicine; Visit Provider Internal Medicine Hematology & Oncology
DX: C34.92 Malignant neoplasm of unspecified part of left bronchus or lung (principal); J43.9 Emphysema, unspecified; R91.8 Other nonspecific abnormal finding of lung field
CPT/HCPCS: 71260; Q9967

== ENCOUNTER 2025-02-11 10:10 | Outpatient (CLI) | payer MEDICARE, OTHER, SELFPAY ==
[2025-02-11 10:21] LABS: Hematocrit 49.3 % (42.0-52.0); Hemoglobin 16.3 g/dL (14.0-18.0); Immature Granulocyte Percent A 0.3 % (0-0.5); Lymphocytes Absolute Auto 1.87 K/mm3 (0.9-3.2); Mean Corpuscular HGB Conc 33.1 g/dl (32-36); Mean Corpuscular Hemoglobin 32.6 pg (26-34); Mean Corpuscular Volume 98.6 fl (80-100); Nucleated Red Blood Cells Absolute Auto 0.000 K/mm3 (0.0-0.012); Nucleated Red Blood Cells Perc 0.0 % (0.0-0.2); Platelet Count Result 141 k/mm3 (150-375); Red Blood Count 5.00 M/mm3 (4.6-6.20); White Blood Count 5.9 K/mm3 (4.5-10.0)
[2025-02-11 10:57] LABS: Alanine Aminotransferase 19 U/L (6-50); Albumin Level 3.9 g/dL (3.5-5.1); Alkaline Phosphatase 93 U/L (38-126); Anion Gap 6 mmol/L (4-12); Aspartate Amino Transferase 30 U/L (17-59); Bilirubin,Total 0.4 mg/dL (0.2-1.3); Blood Urea Nitrogen 9 mg/dL (9-20); Calcium 9.0 mg/dL (8.4-10.2); Carbon Dioxide 33 mmol/L (22-30); Chloride 100 mmol/L (98-107); Estimated Glomerular Filt Rate > 60; Glucose 98 mg/dL (65-110); Potassium 4.4 mmol/L (3.4-5.0); Sodium 139 mmol/L (137-145); Total Protein 6.5 g/dL (6.3-8.2)
--- OUTSIDE RECORDS SUMMARY | 2025-02-11 11:13 | XMS_ITS | Clinical Summary ---
Author Organization [facility] [address] Address [address] [place] [address] Care Team Providers Care Suspension Cord Tier Name Role Phone Martin Tejeda MD Primary Care Provider [phone] Allergies No known active allergies Medications multivitamin-mi [...] Department Care Team Description 12/02/2024 Results Follow-Up [facility] Medicine Dermatology [address] [place] [address] Outpatient Health [address] [place] [phone] Farhad Arriola MD BLOOD MISC TO PALATINE 11/25/2024 10:25 AM CDT Lab [facility] Outpatient Health [address] [place] [address] Health [place], [place] [phone] Pemphigus vulgaris (HCC) 11/25/2024 9:45 AM CDT Office [facility] Dermatology [address] [place] [address] Health [address] [place] [phone] Farhad Arriola MD Pemphigus vulgaris (HCC) (Primary Dx) from Last 3 Months Social History Tobacco Use Types Packs/Day Years Used Date Smoking Tobacco: Former Cigarettes Smokeless Tobacco: Former Tobacco Cessation:Counseling Given: Not Answered Sex and Gender Information Value Date Recorded Sex Assigned at Not on file 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 Gender Identity Not on file Sexual Orientation [...] 62.6 kg (138 lb) 07/15/2024 1:14 PM MARBLEIZING MACHINE TENDER Height 180.3 cm (5' 10.98) 03/11/2017 11:36 [...] Date/Time Associated Diagnosis Comments BLOOD MISC TO PALATINE Routine 11/25/2024 10 :33 AM CDT HEPATITIS PANEL, ACUTE Routine 07/31/2024 12:00 PM CDT High risk medication use from Last 3 Months or Most Recently Relevant to Health Maintenance Results * BLOOD MISC TO PALATINE (11/25/2024 10:33 AM CDT) Test name, chem DSGAB,DESMOG LEIN 1 AND 3, SERUM(PEMPHI SLADE) [place] ref Lab Misc See Footnote LEXUS GLOVER [...] This test has been modified from the medical record coder's instructions. Its performance characteristics were determined by [facility] in a manner consistent with CLIA requirements. This test has not been cleared or approved by the U.S. Food and Drug Administration. Test Performed by: [address] [address] Machine Made Shoe Unit Worker: Tyler Blanco Ph.D.; CLIA# [id number] Blood 11/25/2024 10:3 3 AM CDT 11/25/2024 2:41 PM CDT us Farhad Arriola MD LAB BLOOD ORDERABLES Landy trejo Result [facility] [place] [address] [place] ref Lab * Hepatitis panel, acute Blood [...] Final Result Performing Organization Address City/State/ZIP Co ma Phone Number [facility] [phone] [place] [address] from Last 3 Months or Most Recently Relevant to Health Maintenance Insurance MEDICARE [facility] MEDICARE [employer] [place] MEDICARE [place] [employer] [place] Care Teams Suspension Cord Tier Relationship Specialty Start Date End Date Martin Tejeda MD PCP - General 03/09/17
--- OUTSIDE RECORDS SUMMARY | 2025-02-11 11:13 | XMS_ITS | Encounter Summary ---
Author Organization [facility] Address [address] [place] [address] Phone Care Team Providers Care Field Spec Name Role Phone Martin Tejeda MD Primary Care Provider [phone] Encounter Details Date Type Department Care Team (Late st Contact Info) Description 07/30/2024 Orders Only [facility] Scanning, Provider Social History Tobacco Use Types Packs/Day Years Used Date Smoking Tobacco: Former Cigarettes Smokeless Tobacco: Former Sex and Gender Information Value Date Recorded Sex Assigned at Not on file 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
--- OUTSIDE RECORDS SUMMARY | 2025-02-11 11:13 | XMS_ITS | Clinical Summary ---
Author Organization [facility] Address [address] [place] [address] Care Team Providers Care Sprinkler Tender Name Role Phone None, Provider Primary Care Provider Unavaila ble Allergies No known active allergies Social History Tobacco Use Types Packs/Day Years Used Date Smoking Tobacco: Never Assessed Sex and Gender Information Value Date Recorded Sex Assigned at Male 06/29/2024 12:54 PM BLADE ALIGNER Legal Sex Male 12:47 PM BLADE ALIGNER Gender Identity Not on file Sexual Orientation Not on file Last Filed Vital Signs Vital Sign Reading Time Taken Comments Blood Pressure 110/77 06/29/2024 3:57 PM BLADE ALIGNER Pulse 94 06/29/2024 6:48 PM BLADE ALIGNER Temperature 36.1 C (97 F) 06/29/2024 1:20 PM BLADE ALIGNER Respiratory Rate 18 06/29/2024 1:20 PM BLADE ALIGNER Oxygen Saturation 95% 06/29/2024 6:48 PM BLADE ALIGNER Inhaled Oxygen Concentration - - Weight 68 kg (150 lb) 06/29/2024 1:20 PM BLADE ALIGNER Height 177.8 cm (5' 10) 06/29/2024 1:20 PM BLADE ALIGNER Body Mass Index 21.52 06/29/2024 1:20 PM BLADE ALIGNER Plan of Treatment Health Maintenance Due Date [...] age to complete this topic Insurance MEDICARE [facility] Care Teams Sprinkler Tender Relationship Specialty Start Date End Date None, Provider, MD PCP - General UNKNOWN PHYSICIAN SPECIALTY 06/29/24
--- OUTSIDE RECORDS SUMMARY | 2025-02-11 11:13 | XMS_ITS | Clinical Summary ---
Author Organization [facility] Address [address] [place] [address] Phone Care Team Providers Care Copy Clerk Name Role Phone Martin Tejeda MD Primary Care Provider [phone] Allergies No known active allergies Medications atenoloL [...] Abstract 11/13/2024 12:30 PM CDT Office Visit [facility] Oncology and Hematology [facility] [address] [place] [address] Cash Chamberlain MD Malignant neoplasm of left lung, unspecified part of lung (CMS/HCC) (Primary Dx) 11/12/2024 Orders Only [facility] [address] [place] [address] Cash Chamberlain MD from Last 3 Months [...] CDT Gender Identity Male 07/03/2024 1:54 PM OPTICIAN Sexual Orientation Not on file Last Filed [...] Description 02/15/2025 11:30 AM CDT Office Visit [facility] Oncology and Hematology - [place] [address] [facility] [address] [place] [address] Cash Chamberlain MD [address] [facility] [address] [place] [address] Health Maintenance Due Date Last Done Comments DTAP/TDAP/TD VACCINES (1 - Tdap) 12/08/1967 ZOSTER VACCINE (1 of 2) 1998 PNEUMOCOCCAL VACCINE 50+ YEA RS (2 of 2 - PCV) 02/23/2018 02/23/2017, 04/29/2014 RSV VACCINE (60+ or ) (1 - 1-dose 75+ series) 12/08/2023 Traditional Medicare (ACO) A nnual Wellness Visit 09/02/2024 09/02/2023, 08/20/2022 INFLUENZA VACCINE (#1) 2024 , 02/29/2020, 03/09/2019, Additional history exists Procedures Procedure Name Priority Date/Time Associated Diagnosis Comments COMPREHENSIVE METABOLIC PANEL Routine 11/11/2024 8:02 AM CDT from Last 3 Months Results * COMPREHENSIVE METABOLIC PANEL (11/11/2024 8:02 AM CDT) Blood us Cash Chamberlain MD CHEMISTRY ORDERABLES Final Resu lt from Last 3 Months Insurance MEDICARE PART A AND B [facility] MEDICARE PART A AND B [facility] Care Teams Copy Clerk Relationship Specialty Start Date End Date Martin Tejeda MD [address] [place] [phone] PCP - General Internal Medicine 11/11/23
== END 2025-02-11 10:11 | disposition home or self-care (01) ==
LOC: ANHLAB 10:10
PROVIDERS: PCP Internal Medicine; Visit Provider Internal Medicine Hematology & Oncology
DX: C34.92 Malignant neoplasm of unspecified part of left bronchus or lung (principal)
CPT/HCPCS: 36415; 80053; 85025

== ENCOUNTER 2025-04-13 11:40 | Inpatient (IN) | payer MEDICARE, OTHER, SELFPAY ==
[2025-04-13] VITALS (28 sets, daily range): BP systolic 68–143; BP diastolic 49–96; PULSE 78–161; RESP 13–23; TEMP 36.4–36.7; O2SAT 97–100; BMI 19.6
--- NOTE | ~2025-04-13 | XR_ITS ---
XR chest 1V portable 04/13/2025 12:33 Indication: Shortness of breath Procedure: AP portable chest Comparison: Comparison to multiple prior studies sequentially, with oldest reviewed study dated 09/28/2023. Findings: Heart size normal. Chronic infiltrates left mid thorax, likely scarring. The lungs are hyperinflated which is consistent with, but not diagnostic of chronic obstructive pulmonary disease. No acute focal pneumonia, edema or effusion. No pneumothorax. No acute osseous abnormality. Impression: 1: No acute cardiopulmonary disease. Reviewed, dictated and finalized at location O. NEATOR Impression: 1: No acute cardiopulmonary disease.
--- NOTE | 2025-04-13 11:54 | ECG_ITS ---
Test Date: 2025-04-13 11:41:26 Measurements Intervals [place] Rate: 157 P: 0 WA: 0 QRS: 5 QRSD: 80 T: 52 QT: 275 QTc: 446 Interpretive Statements ATRIAL FIBRILLATION WITH RAPID VENTRICULAR RESPONSE ABNORMAL ECG Compared to ECG 12/14/2024 08:51:08 ATRIAL FIBRILLATION REPLACES SINUS Electronically Signed On 04-13-2025 17:29:43 [place] by Emeka Alcala M.D.
[2025-04-13 12:05] LABS: Hematocrit 51.7 % (42.0-52.0); Hemoglobin 17.2 g/dL (14.0-18.0); Immature Granulocyte Percent A 0.3 % (0-0.5); Lymphocytes Absolute Auto 1.85 K/mm3 (0.9-3.2); Mean Corpuscular HGB Conc 33.3 g/dl (32-36); Mean Corpuscular Hemoglobin 32.5 pg (26-34); Mean Corpuscular Volume 97.5 fl (80-100); Nucleated Red Blood Cells Absolute Auto 0.000 K/mm3 (0.0-0.012); Nucleated Red Blood Cells Perc 0.0 % (0.0-0.2); Platelet Count Result 170 k/mm3 (150-375); Red Blood Count 5.30 M/mm3 (4.6-6.20); White Blood Count 9.1 K/mm3 (4.5-10.0)
[2025-04-13 12:16] LABS: INR 1.4; Prothrombin Time 16.9 Seconds (11.1-14.7)
[2025-04-13 12:17] LABS: Partial Thromboplastin Time 28.4 Seconds (22.3-36.8)
[2025-04-13] MEDS: SODIUM CHLORIDE 0.9% IV 1,000 ML 999 ML IV CONT (12:18)
--- NOTE | 2025-04-13 12:31 | ECG_ITS ---
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
[2025-04-13 12:36] LABS: Alanine Aminotransferase 17 U/L (6-50); Anion Gap 9 mmol/L (4-12); Bilirubin,Total 1.0 mg/dL (0.2-1.3); Blood Urea Nitrogen 11 mg/dL (9-20); Calcium 9.2 mg/dL (8.4-10.2); Carbon Dioxide 27 mmol/L (22-30); Chloride 101 mmol/L (98-107); Estimated CRCL calculation 68 ml/min; Estimated Glomerular Filt Rate > 60; Glucose 113 mg/dL (65-110); Lipase 141 U/L (23-300); Sodium 137 mmol/L (137-145)
--- NOTE | 2025-04-13 12:39 | ED.GENADULT ---
HPI - General Adult General Chief complaint: Shortness of Breath/Dyspnea Stated complaint: SOB/Dizzy Time Seen by Provider: 04/13/25 12:01 History of Present Illness HPI narrative: Patient is a 74-year-old gentleman who presents emergency department with chief complaint of shortness of breath lightheadedness patient has prior history of lung cancer and aortic aneurysm patient states that today felt very lightheaded and felt very weak he also felt short of breath noticed that his heart rate was beating fast patient reports no prior history of atrial fibrillation patient reports no abdominal pain denies vomiting reports no blood in his stool Related Data Home Medications ?Medication ?Instructions ?Recorded ?Confirmed ?Last Taken ?Type albuterol sulfate 90 mcg/actuation 1 inhalation inhalation Q4H PRN 05/27/19 04/13/25 01/04/24 History aerosol inhaler (Ventolin HFA) Wheezing multivitamin (Multiple Vitamins 1 tablet PO DAILY 05/27/19 04/13/25 04/13/25 History tablet) rivaroxaban 20 mg tablet (Xarelto) 20 mg PO QPM 05/27/19 04/13/25 04/12/25 History pantoprazole 20 mg tablet,delayed 40 mg PO DAILY 07/03/22 04/13/25 04/13/25 History release (Protonix) guaifenesin 1,200 mg tablet, 1,200 mg PO BID 04/13/24 04/13/25 04/13/25 History extended release 12 hr (Mucinex) furosemide 40 mg tablet 40 mg PO DAILY PRN edema 08/10/24 04/13/25 Unknown History atenolol 50 mg tablet 50 mg PO DAILY 01/20/25 04/13/25 04/13/25 History Allergies Allergy/AdvReac Type Severity Reaction Status Date / Time No Known Allergies Allergy Verified 04/13/25 15:09 Review of Systems Review of Systems: A 10 system review of systems was completed on the patient and is negative except for what is stated in the HPI. Nursing and ancillary documentation was reviewed. [facility] Past Medical History Medical History Pneumonia Hyperlipidemia Hypertension History of prostate cancer Thoracic aortic aneurysm without rupture History of DVT (deep vein thrombosis) L LE (chronic swelling in extremity) Sleep apnea COPD exacerbation Surgical History Surgical History H/O foot surgery H/O cataract extraction Family History Family History Mother Family history of lung cancer Father Acute myocardial infarction VTE (venous thromboembolism) Social History Social History Social History: The patient lives at home with his who is the durable power patent attorney for healthcare. If she cannot be durable power patent attorney his daughters will be. The patient has 2 children. 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 Patient is a former smoker. He denies any alcohol marijuana or illicit drugs. Code status full code Smoking packs per day: 3 Smoking cigarettes per day: 60.0 Years smoked: 40 Smoking pack-years: 120.00 Smoking status: Former smoker Second hand tobacco smoke exposure: No Alcohol intake: current Drinks per week: 14 Substance use: never Do You Feel Safe in your Home?: Yes Lack of Transportation: No Lack of Food: Never True Current Housing: I Have Housing Concerned About Future Housing: No Difficulty Paying Gas/Electric Bills: No Difficulty Paying for Meds: No Currently Unemployed: No Education: Decline to Answer Difficulty w/ Childcare or Family Care: No Spiritual care concerns: No Exam Narrative: GENERAL: Well-appearing, well-nourished, and in no acute distress. HEAD: Normocephalic, atraumatic. EYES: PERRLA and EOMI. ENT: Nares clear, no rhinorrhea or epistaxis. Mucous membranes moist. NECK: Supple. CHEST: Clear to auscultation. No respiratory distress. HEART: Irregular tachycardic rate and rhythm. No murmur heard. Normal peripheral pulses. ABDOMEN: Soft, nontender, nondistended, normal active bowel sounds. EXTREMITIES: Normal range of motion. No edema. SKIN: Warm, dry, no rash. NEURO: No focal deficits. Alert and oriented x3. PSYCH: Normal mood and affect. Course Vital Signs Vital signs: Vital Signs Temperature 36.6 C 04/13/25 11:37 Pulse Rate 155 H 04/13/25 11:37 Respiratory Rate 17 04/13/25 11:37 Blood Pressure 99/85 L 04/13/25 11:37 Pulse Oximetry 98 04/13/25 11:37 Oxygen Delivery Room Air 04/13/25 11:37 Oxygen Flow Rate 2 04/13/25 11:37 Temperature 36.6 C 04/13/25 11:37 Pulse Rate 92 04/13/25 14:31 Respiratory Rate 18 04/13/25 14:31 Blood Pressure 128/79 04/13/25 14:31 Pulse Oximetry 100 04/13/25 14:31 Oxygen Delivery Nasal Cannula 04/13/25 11:37 Oxygen Flow Rate 2 04/13/25 11:37 Medical Decision Making MDM Narrative Medical decision making narrative: Differential diagnosis includes atrial fibrillation with rapid ventricular response, dysrhythmia, dehydration, electrolyte abnormality, ACS EKG showed atrial fibrillation with rapid ventricular response The patient was hypotensive and patient was given a loading dose amiodarone and actually converted back to sinus rhythm with frequent PVCs Initial troponin was slightly elevated at 0.083 The patient will be admitted to the IMU Vital Signs Vital Signs: Vital Signs Temperature 36.6 C 04/13/25 11:37 Pulse Rate 155 H 04/13/25 11:37 Respiratory Rate 17 04/13/25 11:37 Blood Pressure 99/85 L 04/13/25 11:37 Pulse Oximetry 98 04/13/25 11:37 Oxygen Delivery Room Air 04/13/25 11:37 Oxygen Flow Rate 2 04/13/25 11:37 Temperature 36.6 C 04/13/25 11:37 Pulse Rate 92 04/13/25 14:31 Respiratory Rate 18 04/13/25 14:31 Blood Pressure 128/79 04/13/25 14:31 Pulse Oximetry 100 04/13/25 14:31 Oxygen Delivery Nasal Cannula 04/13/25 11:37 Oxygen Flow Rate 2 04/13/25 11:37 Lab Data 04/13/25 11:55 04/13/25 11:55 Labs: Lab Results 04/13/25 Range/Units 11:55 WBC 9.1 (4.5-10.0) K/mm3 RBC 5.30 (4.6-6.20) M/mm3 Hgb 17.2 (14.0-18.0) g/dL Hct 51.7 (42.0-52.0) % MCV 97.5 (80-100) fl MCH 32.5 (26-34) pg MCHC 33.3 (32-36) g/dl RDW 13.2 (11.5-14.5) % Plt Count 170 (150-375) k/mm3 MPV 11.1 H (7.4-10.4) fl Immature Gran % (Auto) 0.3 (0-0.5) % Neut % (Auto) 67.8 (45.5-73.1) % Lymph % (Auto) 20.4 (18.3-44.2) % Grayson % (Auto) 11.0 H (2.6-8.5) % Eos % (Auto) 0.2 (0-4.4) % Baso % (Auto) 0.3 (0.2-1.2) % Lymph # (Auto) 1.85 (0.9-3.2) K/mm3 Grayson # (Auto) 1.0 H (0.1-0.6) K/mm3 Eos # (Auto) 0.0 (0-0.3) K/mm3 Baso # (Auto) 0.0 (0.0-0.1) K/mm3 Abs Immat Gran (auto) 0.03 (0.00-0.031) K/mm3 Absolute Neuts (auto) 6.1 (1.3-6.7) K/mm3 Absolute Nucleated RBC 0.000 (0.0-0.012) K/mm3 Nucleated RBC % 0.0 (0.0-0.2) % PT 16.9 H (11.1-14.7) Seconds INR 1.4 APTT 28.4 (22.3-36.8) Seconds Sodium 137 (137-145) mmol/L Potassium 4.5 (3.4-5.0) mmol/L Chloride 101 (98-107) mmol/L Carbon Dioxide 27 (22-30) mmol/L Anion Gap 9 (4-12) mmol/L BUN 11 (9-20) mg/dL Creatinine 0.74 (0.7-1.3) mg/dL Estim Creat Clear Calc 68 ml/min Estimated GFR > 60 (59 - ) Glucose 113 H (65-110) mg/dL Calcium 9.2 (8.4-10.2) mg/dL Magnesium 1.6 (1.6-2.3) mg/dL Total Bilirubin 1.0 (0.2-1.3) mg/dL AST 35 (17-59) U/L ALT 17 (6-50) U/L Alkaline Phosphatase 84 (38-126) U/L Troponin I 0.083 H* (0.000-0.034) ng/mL Total Protein 6.6 (6.3-8.2) g/dL Albumin 4.0 (3.5-5.1) g/dL Lipase 141 (23-300) U/L Critical Care Time Critical Care Time Critical Care Time: Yes Total Critical Care Time: 35 Discharge Plan Discharge Clinical Impression: Atrial fibrillation with RVR, Elevated troponin Patient Disposition: Still a Patient Condition: Stable
[2025-04-13 12:43] LABS: Albumin Level 4.0 g/dL (3.5-5.1); Alkaline Phosphatase 84 U/L (38-126); Aspartate Amino Transferase 35 U/L (17-59); Magnesium 1.6 mg/dL (1.6-2.3); Potassium 4.5 mmol/L (3.4-5.0); Total Protein 6.6 g/dL (6.3-8.2); Troponin I 0.083 ng/mL (0.000-0.034)
--- OUTSIDE RECORDS SUMMARY | 2025-04-13 13:40 | XMS_ITS | Clinical Summary ---
Author Organization [facility] Address [address] [place] [address] Care Team Providers Care Store Hand Name Role Phone None, Provider Primary Care Provider Unavaila ble Allergies No known active allergies Social History Tobacco Use Types Packs/Day Years Used Date Smoking Tobacco: Never Assessed Sex and Gender Information Value Date Recorded Sex Assigned at Male 06/29/2024 12:54 PM HEARING THERAPY DIRECTOR Legal Sex Male 12:47 PM HEARING THERAPY DIRECTOR Gender Identity Not on file Sexual Orientation Not on file Last Filed Vital Signs Vital Sign Reading Time Taken Comments Blood Pressure 110/77 06/29/2024 3:57 PM HEARING THERAPY DIRECTOR Pulse 94 06/29/2024 6:48 PM HEARING THERAPY DIRECTOR Temperature 36.1 C (97 F) 06/29/2024 1:20 PM HEARING THERAPY DIRECTOR Respiratory Rate 18 06/29/2024 1:20 PM HEARING THERAPY DIRECTOR Oxygen Saturation 95% 06/29/2024 6:48 PM HEARING THERAPY DIRECTOR Inhaled Oxygen Concentration - - Weight 68 kg (150 lb) 06/29/2024 1:20 PM HEARING THERAPY DIRECTOR Height 177.8 cm (5' 10) 06/29/2024 1:20 PM HEARING THERAPY DIRECTOR Body Mass Index 21.52 06/29/2024 1:20 PM HEARING THERAPY DIRECTOR Plan of Treatment Health Maintenance Due Date Last Done Comments Hepatitis C 1966 DTaP, Tdap and Td Vaccines ( 1 - Tdap) 12/08/1967 Pneumococcal Vaccine: 50+ Ye ars (1 of 1 - PCV) 1998 Zoster Vaccines (1 of 2) 1998 Annual Medicare Wellness Visit 2013 RSV Immunization or 60+ Years (1 - 1-dose 75+ series) 12/08/2023 COVID-19 Vaccine (1 - 2025-2 6 season) 2025 Influenza Adult (#1) 2025 Hepatitis A Vaccines Aged Out No long er eligible based on patient's age to complete this topic Meningococcal B Vaccine Aged Out No l onger eligible based on patient's age to complete this topic Meningococcal Vaccine Aged Out No ash donna eligible based on patient's age to complete this topic RSV Immunizations Under 20 Months Aged Out No longer eligible based on patient's age to complete this topic Insurance MEDICARE [facility] Care Teams Store Hand Relationship Specialty Start Date End Date None, Provider, MD PCP - General UNKNOWN PHYSICIAN SPECIALTY 06/29/24
--- OUTSIDE RECORDS SUMMARY | 2025-04-13 13:40 | XMS_ITS | Encounter Summary ---
Author Organization [facility] Address [address] [place] [address] Phone Care Team Providers Care Band Ripsaw Operator Name Role Phone Martin Tejeda MD Primary Care Provider [phone] Encounter Details Date Type Department Care Team (Late st Contact Info) Description 07/30/2024 Orders Only [facility] Scanning, Provider Social History Tobacco Use Types Packs/Day Years Used Date Smoking Tobacco: Former Cigarettes Smokeless Tobacco: Former Sex and Gender Information Value Date Recorded Sex Assigned at Not on file Legal Sex Male 12:15 PM HOME THEATRE TECHNICIAN Gender Identity Not on file Sexual [...] on filedocumented in this encounter Care Teams Band Ripsaw Operator Relationship Specialty Start Date End Date Martin Tejeda MD PCP - General 03/09/17 documented as of this encounter
--- OUTSIDE RECORDS SUMMARY | 2025-04-13 13:40 | XMS_ITS | Clinical Summary ---
Author Organization [facility] Address [address] [place] [address] Phone Care Team Providers Care Architecture Instructor Name Role Phone Martin Tejeda MD Primary Care Provider [phone] Allergies No known active allergies Medications atenoloL (TENORMIN) 100 mg tablet Take 100 mg by mouth daily. Active rivaroxaban (Xarelto) 20 mg Tablet Take [...] 2 TIMES DAILY (route: inhalation) 3 Active furosemide (LASIX) 40 mg tablet Take 40 mg by mouth daily. 5 Active Active Problems Problem Noted Date Diagnosed Date Lung nodules 10/30/2023 Mediastinal lymphadenopathy 10/30/2023 Encounters Date Type Department Care Team Description 02/15/2025 11:30 AM CDT [facility] - [place] [address] [place] [phone] Cash Chamberlain MD Malignant neoplasm of left lung, unspecified part of lung (CMS/HCC) (Primary Dx) 02/15/2025 Orders Only [facility] - [place] [address] [place] [address] Cash Chamberlain MD 02/11/2025 Orders Only [facility] - [place] [address] [place] [address] Cash Chamberlain MD 01/19/2025 External Device Data STL ABSTRACTION Provider, Abstract from Last 3 Months Family History Medical History Relation Name Comments Lung Cancer Mother Lisa Bartlett Colon Cancer Paternal Grandmother Mrs Collins Relation Name Status Comments Mother Lisa Bartlett Paternal Grandmother Mrs Collins Social History Tobacco Use Types Packs/Day Years Used Date Smoking Tobacco: Former Cigarettes 3 25 Q uit: 08/02/2005 Alcohol Use Standard Drinks/Week Comments Yes 14 (1 standard drink = 0.6 oz pu re alcohol) Sex and Gender Information Value Date Recorded Sex Assigned at Not on file Legal Sex Male 9:37 AM CDT Gender Identity Male 07/03/2024 1:54 PM DIESEL INSPECTOR Sexual Orientation Not on file Last Filed Vital Signs Vital Sign Reading Time Taken Comments Blood Pressure 124/81 02/15/2025 11:23 AM CDT Pulse 77 02/15/2025 11:20 AM CDT Temperature 36.3 C (97.3 F) 02/15/2025 11:20 AM CDT Respiratory Rate 16 02/15/2025 11:2 0 AM CDT 2 liters O2 Oxygen Saturation 92% 02/15/2025 11: 20 AM CDT Inhaled Oxygen Concentration - - Weight 64.6 kg (142 lb 6.4 oz) 02/16/20 11:20 AM CDT Height 177.8 cm (5' 10) 11/11/2023 1:2 2 PM CDT Body Mass Index 20.43 11/11/2023 1:22 PM CDT Plan of Treatment Upcoming Encounters Date Type Department Care Team (Late st Contact Info) Description 05/28/2025 11:30 AM DIESEL INSPECTOR Office Visit [facility] - [place] [address] [place] [address] Cash Chamberlain MD [address] [facility] [address] [place] [address] Health Maintenance Due Date Last Done Comments DTAP/TDAP/TD VACCINES (1 - Tdap) 12/08/1967 RSV VACCINE (60+ or ) (1 - 1-dose 75+ series) 12/08/2023 INFLUENZA VACCINE (#1) 2024 , 02/18/2022, 02/23/2021, Additional history exists COVID-19 Vaccine ( - 2024-2 6 season) 2025 03/01/2023, 02/18/2022, 09/26/2021, Additional history exists PNEUMOCOCCAL VACCINE 50+ YEARS Completed 1 , 02/17/2016, 04/29/2014 ZOSTER VACCINE Completed 11/24/2023, 07/14/2023 Procedures Procedure Name Priority Date/Time Associated Diagnosis Comments COMPREHENSIVE METABOLIC PANEL Routine 02/11/2025 12:[address] CHEST W CONTRAST Routine 02/08/2025 1 0:37 AM CDT from Last 3 Months Results * COMPREHENSIVE METABOLIC PANEL (02/11/2025 12:39 PM CDT) Blood Cash Chamberlain MD CHEMISTRY ORDERABLES Final Resu lt * CT CHEST W CONTRAST (02/08/2025 10:37 AM CDT) Anatomical Region Laterality Modality Chest Computed Tomogra phy Cash Chamberlain MD CT ORDERABLES Final Result from Last 3 Months Insurance MEDICARE PART A AND B [place] [facility] [place] MEDICARE PART A AND B [place] Care Teams Architecture Instructor Relationship Specialty Start Date End Date Martin Tejeda MD [address] [place] [phone] PCP - General Internal Medicine 11/11/23
--- OUTSIDE RECORDS SUMMARY | 2025-04-13 13:40 | XMS_ITS | Data Portability ---
Author Organization [place] [facility], Main Office Address [address] [place] [address] Care Team Providers Care Information Security Engineer Name Role Phone ELMER TEJEDA Primary Care Provider Assessment No assessment recorded. Plan of Treatment Reminders Order Date Submit Date Provider Last Modified By Organization Details Last Modified Time Details Appointments Any 15 2025 10:45A M Elmer Tejeda MD Not available Not available Not available Lab uric acid, serum or plasma 2024 025 [facility] (Lab), [address] [place], [address], 10/20/2024 20:18:24 CMP, serum or plasma 2024 025 [facility] (Lab), [address] [place], [address], 10/20/2024 20:18:21 unliste d lab - CBC study 2024 025 [email or web address] [facility] (Lab), [address] [place], [address], 10/30/2024 15:27:03 lipid panel, serum 2024 025 [facility] (Lab), [address] [place], [address], 10/20/2024 20:18:27 Referral None recorde d. Procedures None recorde d. Surgeries None recorde d. Imaging None recorde d. Medication Orders atenolo l 50 mg tablet 2024 025 [facility] [address] [place], [address], 01/14/2025 11:09:23 clotrim azole 10 mg mitzi 2024 025 [facility] [address] [place], [address], 06/17/2024 12:42:55 furosem jose 40 mg tablet 2023 024 [facility] [address] [place], [address], 02/20/2024 14:30:48 amlodip ine 5 mg tablet [facility]23 [facility] [address] [place], [address], 09/14/2024 11:08:04 Patient TargetsNo targets recorded. Patient InstructionsNo instructions recorded. Reason for Referral None Reported. Results Created Date Observation Date Name Description Value Unit Range Abnormal Flag Note LastModifiedBy Organization Detail LastModifiedTime 10/21/1910/20/2024 CBC W/O DIFFE RENTI AL white blood cells 6.3 x10'3 /uL 4.2-10 .8 Not Available [facility] (Lab) [address] [place], [address], 10/20/2024 19:17:17 10/21/19 25 10/20/2024 CBC W/O DIFFE RENTI AL red blood cells 4.56 x10'6 /uL 4.10-5 .80 Not Available [facility] (Lab) [address] [place], [address], 10/20/2024 19:17:17 10/21/19 25 10/20/2024 CBC W/O DIFFE RENTI AL hemoglobin 15.1 g/dL 13.2-1 7.0 Not Available [facility] (Lab) [address] [place], [address], 10/20/2024 19:17:17 10/21/1910/20/2024 CBC W/O DIFFE RENTI AL hematocrit 47.8 % 39.3-5 0.0 Not Available [facility] (Lab) [address] [place], [address], 10/20/2024 19:17:17 10/21/19 25 10/20/2024 CBC W/O DIFFE RENTI AL mean red cell volume 104.8 fL 80.0-9 7.0 high Not Available [facility] (Lab) [address] [place], [address], 10/20/2024 19:17:17 10/21/19 25 10/20/2024 CBC W/O DIFFE RENTI AL mean red cell hemoglobin 33.1 pg 27.0-3 3.0 high Not Available [facility] (Lab) [address] [place], [address], 10/20/2024 19:17:17 10/21/19 25 10/20/2024 CBC W/O DIFFE RENTI AL mean RBC HGB concentratio n 31.6 g/dL 31.0-3 6.0 Not Available [facility] (Lab) [address] [place], [address], 10/20/2024 19:17:17 10/21/1910/20/2024 CBC W/O DIFFE RENTI AL red cell distribution width 12.9 % 11.8-1 5.5 Not Available [facility] (Lab) [address] [place], [address], 10/20/2024 19:17:17 10/21/19 25 10/20/2024 CBC W/O DIFFE RENTI AL platelets 147 x10'3 /uL 150-40 0 low Not Available [facility] (Lab) [address] [place], [address], 10/20/2024 19:17:17 10/21/19 25 10/20/2024 CBC W/O DIFFE STEVIE AL mean platelet volume 11.4 fL 9.0-12 .4 Not Available [facility] (Lab) [address] [place], [address], 10/20/2024 19:17:17 10/21/19 25 10/20/2024 COMPR EHENS YOSHI METAB OLIC PANEL sodium 140 mmol/ L 137-14 5 Not Available [facility] (Lab) [address] [place], [address], 10/20/2024 20:18:21 10/21/19 25 10/20/2024 COMPR EHENS YOSHI METAB OLIC PANEL potassium 4.1 mmol/ L 3.5-5. 1 Not Available [facility] (Lab) [address] [place], [address], 10/20/2024 20:18:21 10/21/19 25 10/20/2024 COMPR EHENS YOSHI METAB OLIC PANEL chloride 102 mmol/ L 98-107 Not Available [facility] (Lab) [address] [place], [address], 10/20/2024 20:18:21 10/21/19 25 10/20/2024 COMPR EHENS YOSHI METAB OLIC PANEL carbon dioxide 29 mmol/ L 22-30 Not Available [facility] (Lab) [address] [place], [address], 10/20/2024 20:18:21 10/21/19 25 10/20/2024 COMPR EHENS YOSHI METAB OLIC PANEL anion gap 13.1 mmol/ L 14-22 low Not Available [facility] (Lab) [address] [place], [address], 10/20/2024 20:18:21 10/21/19 25 10/20/2024 COMPR EHENS YOSHI METAB OLIC PANEL glucose 82 mg/dL 70-99 Not Available [facility] (Lab) [address] [place], [address], 10/20/2024 20:18:21 10/21/19 25 10/20/2024 COMPR EHENS YOSIH METAB OLIC PANEL BUN 9 mg/dL 8-19 Not Available [facility] (Lab) [address] [place], [address], 10/20/2024 20:18:21 10/21/19 25 10/20/2024 COMPR EHENS YOSHI METAB OLIC PANEL creatinine 0.53 mg/dL 0.66-1 .25 low Not Available [facility] (Lab) [address] [place], [address], 10/20/2024 20:18:21 10/21/19 25 10/20/2024 COMPR EHENS YOSHI METAB OLIC PANEL GFR >60 Refer ence Range : Callery ge GFR Healt hy Adult : >60 [...] or ethni c subgr oups, such as Hisar nics. Outsi de the valid ated fredo [...] of age, a pedia tric GFR calcu latev is avail able on the [facility] websi te: https :[email or web address] [email or web address].liz tucker.o brannon/pr brendaness roxanneal s/kdo qi/gf r_cal culat or Not Available [facility] (Lab) [address] [place], [address], 10/20/2024 20:18:21 10/21/19 25 10/20/2024 COMPR EHENS YOSHI METAB OLIC PANEL alkaline phosphatase 100 U/L 38-126 Not Available [facility] (Lab) [address] [place], [address], 10/20/2024 20:18:21 10/21/19 25 10/20/2024 COMPR EHENS YOSHI METAB OLIC PANEL alanine aminotransfe rase 14 U/L 0-50 Not Available [facility] (Lab) [address] [place], [address], 10/20/2024 20:18:21 10/21/19 25 10/20/2024 COMPR EHENS YOSHI METAB OLIC PANEL aspartate aminotransfe rase 32 U/L 15-46 Not Available [facility] (Lab) [address] [place], [address], 10/20/2024 20:18:21 10/21/19 25 10/20/2024 COMPR EHENS YOSHI METAB OLIC PANEL bilirubin, total 0.40 mg/dL 0.20-1 .30 Not Available [facility] (Lab) [address] [place], [address], 10/20/2024 20:18:21 10/21/19 25 10/20/2024 COMPR EHENS YOSHI METAB OLIC PANEL calcium 9.1 mg/dL 8.4-10 .2 Not Available [facility] (Lab) [address] [place], [address], 10/20/2024 20:18:21 10/21/19 25 10/20/2024 COMPR EHENS YOSHI METAB OLIC PANEL total protein 5.5 g/dL 6.3-8. 2 low Not Available [facility] (Lab) [address] [place], [address], 10/20/2024 20:18:21 10/21/19 25 10/20/2024 COMPR EHENS YOSHI METAB OLIC PANEL albumin 3.5 g/dL 3.0-4. 4 Not Available [facility] (Lab) [address] [place], [address], 10/20/2024 20:18:21 10/21/19 25 10/20/2024 COMPR EHENS YOSHI METAB OLIC PANEL globulin 2.0 g/dL 2.6-4. 2 low Not Available [facility] (Lab) [address] [place], [address], 10/20/2024 20:18:21 10/21/19 25 10/20/2024 COMPR EHENS YOSHI METAB OLIC PANEL A/G ratio 1.8 ratio 1.0-2. 0 Not Available [facility] (Lab) [address] [place], [address], 10/20/2024 20:18:21 10/21/19 25 10/20/2024 URIC ACID SERUM uric acid 5.8 mg/dL 3.5-8. 5 Not Available [facility] (Lab) [address] [place], [address], 10/20/2024 20:18:24 10/21/19 25 10/20/2024 LIPID PANEL cholesterol 173 mg/dL 140-19 9 NIH RIC NSUS RECOM MENDA TION FOR NAN STERO L: ADULT CHILD LOW RISK: <200 <170 BORDE RLINE : <200- 239 ----- HIGH RISK: >240 >200 Not Available [facility] (Lab) [address] [place], [address], 10/20/2024 20:18:27 10/21/19 25 10/20/2024 LIPID PANEL triglyceride s 177 mg/dL 0-150 high NIH RIC NSUS REPOR T RECOM MENDA TION FOR TRIGL YCERI BHANU: ADULT CHILD LOW RISK: <150 ----- BODER LINE: 150-1 99 ----- HIGH RISK: >200 ----- Not Available [facility] (Lab) [address] [place], [address], 10/20/2024 20:18:27 10/21/19 25 10/20/2024 LIPID PANEL HDL cholesterol 65 mg/dL 40- Not Available [facility] (Lab) [address] [place], [address], 10/20/2024 20:18:27 10/21/19 25 10/20/2024 LIPID PANEL [...] WILL NOT BE REPOR ASHLYN. Not Available [facility] (Lab) [address] [place], [address], 10/20/2024 20:18:27 01/24/20 24 01/23/2024 XR, ribs, [...] ation record ed. Not Available 2024 11:18:08 12/26/19 25 12/24/2024 maxx can cardi olite stres s test (PROC ) No observ ation record ed. Not Available 2024 12:43:01 02/17/20 25 02/08/2025 CT, chest , w/ contr ast No observ ation record ed. Not Available 2024 08:47:34 Result Notes None recorded. Problems Name Problem SNOMED Code Status Onset Date Resolution Date Notes Provider Name and Address Organization Details Recorded Time Chronic obstruct yoshi pulmonar y disease 96521899 Active Not Available [facility] 3 02:48:08 Hyperkal emia 33016771 Active Not Available [facility] 3 02:48:08 Melanocy tic nevus 479833236 Completed Not Available [facility] 3 02:48:09 Epidermo id cyst of skin 936268612 Completed Not Available [facility] 3 02:48:09 Solitary nodule of lung 879501449 Active Not Available [facility] 3 02:48:09 History of polyp of colon 026335008 Active Not Available [facility] 3 02:48:09 Aneurysm of thoracic aorta 893564056 Active Not Available [facility] 3 02:48:09 Cough 13708970 Completed Not Available [facility] 3 02:48:09 Upper respirat ory infectio n 46875496 Completed Elmer Tejeda MD [address] [facility], [facility] [address], [place], [address] , [place] [employer] [facility] 3 11:11:50 Hyperlip idemia 02867910 Active Not Available [facility] 3 02:48:09 Occult blood detected in feces 52844852 Active history of heme pos stools, no hemorrho ids in the past Not Available [facility] 3 02:48:10 [facility] hyperten trey 07904479 Active Not Available [facility] 3 02:48:10 Polyp of colon 05226838 Active Not Available [facility] 3 02:48:10 Gout 82067922 Active Not Available [facility] 3 02:48:10 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 854986186 Active 2016 Not Available [facility] 3 02:48:09 Former heavy tobacco smoker 06463684340 4100 Active 2016 Not Available [facility] 3 02:48:09 Fracture of calcaneu s 759549658 Completed 201712/12/2021 Not Available [facility] 3 02:48:08 Postoper ative visit 915789575 Completed 201712/12/2021 Not Available [facility] 3 02:48:08 Gastroes ophageal reflux disease 030452517 Active 2020 Not Available [facility] 3 02:48:08 Erectile dysfunct ion 660042972 Active 2020 Not Available [facility] 3 02:48:10 Prostate specific antigen above referenc e range 452534278 Active 2021 Not Available [facility] 3 02:48:09 Malignan t neoplasm of prostate 062185990 Active 2021 Not Available [facility] 3 02:48:09 Liver function tests outside referenc e range 819648273 Active 2022 ROYER Santamaria, [place] [facility] [employer] [facility] 3 10:00:45 Pneumoni a 933784128 Completed 202208/20/2022 ROYER [place] [facility] 3 10:00:38 Pleural effusion 21046410 Active 2022 Elmer Tejeda MD [address], [address], [place], [address] , [facility] 3 10:21:33 Thrombos is of thoracic aorta 98682657 Active 2022 Elmer Tejeda MD [address], [address], [place], [address] , [facility] 3 10:28:10 Upper respirat ory infectio n 90571492 Active 2022 Elmer Tejeda MD [address], [address], [place], [address] , [facility] 3 11:11:50 Acid reflux 523655908 Active 2023 Krystina Brooke n, RMA null, [place] [facility] 4 11:49:02 Malignan t neoplasm of lung 924552640 Active 2023 Elmer Tejeda MD [address], [address], [place], [address] , [facility] 4 11:09:13 Edema of lower extremit y 427701216 Active 2023 Elmer Tejeda MD [address], [address], [place], [address] , [facility] - [facility] 4 14:25:09 Edema 762175642 Active 2023 Elmer Tejeda MD [address], [address], [place], [address] , [facility] - [facility] 4 10:59:59 Sinusiti s 47808113 Active 2024 Rona Dunbar MA null, [place] [facility] 5 11:36:00 Candidia sis of mouth 09362558 Active 2024 Elmer Tejeda MD [address], [address], [place], [address] , [employer] 12:39:31 Compress ion fracture of thoracic vertebra 33019870864 04 Active 2024 Elmer Tejeda MD [address], [place], [address] , [facility] [employer] [facility] [employer] 5 09:34:47 Bonnie s 73271676 Active 2024 Elmer Tejeda MD [address], [place], [address] , [employer] 5 11:23:47 Problem Notes None recorded. Procedures Surgical History Date Name Laterality Status Provider Name and Address Organization Details Recorded Time 09/02/19 24 Medicare Wellness CPT Code, subsequent completed Brianna Urbina RN [facility] [employer] [facility] 09/02/2023 11:57:36 08/21/19 23 Medicare Wellness CPT Code, subsequent completed Amy Vincent RN [facility] [employer] [facility] 08/20/2022 10:29:04 Orthopedic Surgery completed Not Available [facility] 07/18/2022 02:42:55 colonoscopy completed Not Available [facility] 07/18/2022 02:42:55 Imaging Results None recorded. Procedure Notes None recorded. Medical Equipment None Reported. Allergies No known drug allergies Medications Name Sig Start Date Stop Date Status Note LastModified by Organization Details LastModified Time lido2%/ny no397l/pr edn15/5 susp SWISH AND SWALLOW 5-10ML BY MOUTH 6 HOURS NEEDED 01/14 completed Not Available Not Available Not Available amoxicill in 500 mg capsule Take [...] NEEDED. RINSE MOUTH AFTER USE 2024 active ALDAIR 01/14/25 NOV 05/26/25 ok to rf Not Available Not Available Not Available azithromy ramin 250 mg tablet TAKE [...] TAKE 1 TABLET BY MOUTH ONCE DAILY 01/14 completed Not Available Not Available Not Available hydrocodo ne 5 mg-acetam inophen 325 [...] oral solution SWISH 5 ML IN MOUTH TWICE DAILY AND THEN SPIT. DO NOT SWALLOW. active Not Available Not [...] BY MOUTH ONCE DAILY NEEDED 2024 active ALDAIR: 01/14/25 - NOV: 05/26/25 Not Available Not Available Not Available simvastat in 20 mg tablet TAKE 1 TABLET BY MOUTH ONCE DAILY 01/14 completed Not Available Not Available Not Available dexametha sone 4 mg tablet TAKE [...] 2 PUFFS BY MOUTH EVERY 4 HOURS NEEDED 2024 active ALDAIR 01/14/25 NOV 05/17/25 ok to rf Not Available Not Available Not Available atenolol 50 mg tablet TAKE 1 TABLET BY MOUTH ONCE DAILY active Not Available Not Available No t Available amoxicill in 875 mg-potass ium clavulana [...] active Not Available Not Available Not Available roflumila st 500 mcg tablet TAKE 1 TABLET BY MOUTH ONCE DAILY 01/14 completed Not Available Not Available Not Available [...] completed Not Available Not Available Not Available roflumila st 250 mcg tablet TAKE 1 TABLET BY MOUTH ONCE DAILY 01/14 completed Not Available Not Available Not Available Breztri Aerospher e 160 mcg-9mcg- 4.8mcg/ac tuation HFA aerosol inhaler Inhale 2 puffs twice a day by inhalati on route. 2020 active Not Available Not Available Not Avai lable Vitals Date Recorded Body height Body mass index (BMI) Body weight Body temperature Heart rate Oxygen saturation Inhaled oxygen flow rate Systolic And Diastolic Provider Name and Address Organization Details Last Updated DateTime 5 175.26 cm 22.2 kg/m2 22310.8 6 g 97.6 [degF] 97 /min 96 % 2 L/min 119/78 mm[Hg] Qiana Archer [place] [employer] [facility] 5 12:32:51 Date Recorded Body height Body mass index (BMI) Body weight Body temperature Heart rate Oxygen saturation Inhaled oxygen flow rate Systolic And Diastolic Provider Name and Address Organization Details Last Updated DateTime 5 175.26 cm 21.7 kg/m2 80856.0 8 g 97.6 [degF] 89 /min 93 % 2 L/min 118/76 mm[Hg] Qiana Katrina mi [facility] [employer] [facility] 5 11:07:24 Date Recorded Body height Body mass index (BMI) Body weight Body temperature Heart rate Oxygen saturation Inhaled oxygen flow rate Systolic And Diastolic Provider Name and Address Organization Details Last Updated DateTime 5 175.26 cm 21 kg/m2 83685.1 2 g 97.6 [degF] 76 /min 93 % 2 L/min 108/80 mm[Hg] Krystina lynn [facility] [employer] [facility] 5 10:50:28 Date Recorded Body height Body mass index (BMI) Body weight Body temperature Heart rate Oxygen saturation Systolic And Diastolic Provider Name and Address Organization Details Last Updated DateTime 4 175.26 cm 24.2 kg/m2 46284.1 5 g 97.4 [degF] 89 /min 90 % 120/66 mm[Hg] Krystina lynn Tenisha [facility] [employer] [facility] 4 14:02:38 Date Recorded Body weight Body mass index (BMI) Body height Body temperature Heart rate Oxygen saturation Systolic And Diastolic Provider Name and Address Organization Details Last Updated DateTime 4 54697 g 23.2 kg/m2 175.26 cm 97.7 [degF] 95 /min 97 % 116/68 mm[Hg] Krystina lynn Tenisha [place] [employer] [facility] [employer] [facility] 4 10:46:53 Social History Question Answer Notes LastModified by Organization Details LastModified Time Tobacco Smoking Status Former Smoker Quit- 2005 Radha Nowak RN [email or web address], [facility] [employer] [facility] 04/19/2023 10:06:59 Do You Have An Advance Directive? Yes [id number] [id number] Information not available 07/18/2022 Do You Wear A Helmet When Biking? No [email or web address] Information not available 04/19/2023 Are You Blind Or Do You Have Difficulty Seeing? No [email or web address] Information not available 04/19/2023 What Is Your Level Of Caffeine Consumption? Occasional 1 Cup Coffe In The Morning [id number] Information not available 07/18/2022 How Much Tobacco Do You Chew? None [id number] [id number] Information not available 07/18/2022 Are You Deaf Or Do You Have Serious Difficulty Hearing? No [email or web address] Information not available 04/19/2023 What Type Of Diet Are You Following? REGULAR [id number].[id number] [id number] Information not available 07/18/2022 Which Illicit Or Recreational Drugs Have You Used? None Information not available 04/19/2023 What Is The Highest Grade Or Level Of School You Have Completed Or The Highest Degree You Have Received? [id number] Information not available 04/19/2023 Have There Been Any Changes To Your Family Or Social Situation? No [email or web address] Information not available 04/19/2023 What Is The Fluoride Status Of Your Home? Fluoridated Information not available 04/19/2023 When Did You Quit Smoking? 16+yearssincelastc igarette [email or web address] Information not available 04/19/2023 Are There Any Guns Present In Your Home? No [email or web address] Information not available 04/19/2023 Do You Use Insect Repellent Routinely? No [email or web address] Information not available 04/19/2023 Where Do You Live? SingleLevelHouse [email or web address] Information not available 04/19/2023 Advance Directive- Providers Has Reviewed Directive And Consents To Follow Them (insert Provider Name With Any Objectives In Notes Field) Yes Information not available 08/20/2022 Guns Present In The Home? Yes [email or web address] Information not available 09/02/2023 Are You Able To Care For Yourself? Yes [email or web address] Information not available 08/20/2022 Are You Blind Or Do Yo Have Difficulty Seeing? No [email or web address] Information not available 08/20/2022 Are You Deaf Or Do You Have Serious Difficulty Hearing? No [email or web address] Information not available 08/20/2022 General Stress Level? Low [email or web address] Information not available 08/20/2022 Live Alone Of With Others? With Others [email or web address] Information not available 08/20/2022 Do You Have A Medical Power Of [employer] Plant Operations Engineer? Yes [email or web address] Information not available 04/19/2023 What Was The Date Of Your Most Recent Tobacco Screening? 01/14/2025 [email or web address] Information not available 01/14/2025 Do You Have Any Pets? No [email or web address] Information not available 04/19/2023 What Is Your Relationship Status? [id number] [id number] Information not available 07/18/2022 Do You Use Your Seat Belt Or Car Seat Routinely? Yes [email or web address] Information not available 04/19/2023 Do You Have Smoke And Carbon Monoxide Detectors In Your Home? Yes Information not available 04/19/2023 At What Age Did You Start Smoking Tobacco? 12 [email or web address] Information not available 04/19/2023 Are You Passively Exposed To Smoke? No [email or web address] Information not available 04/19/2023 How Much Tobacco Do You Smoke? 3+ PPD [id number].[id number] [id number] Information not available 07/18/2022 Do You Use Sunscreen Routinely? No [email or web address] Information not available 04/19/2023 Has Tobacco Cessation Counseling Been Provided? No [email or web address] Information not available 04/19/2023 How Many Years Have You Smoked Tobacco? 43 [email or web address] Information not available 04/19/2023 Have You Recently Traveled Abroad? Yes Last Mo Went To [place] [email or web address] Information not available 04/19/2023 Do You Have Difficulty Walking Or Climbing Stairs? No [email or web address] Information not available 04/19/2023 Do You Have Any Dietary Restrictions? No [email or web address] Information not available 04/19/2023 Sex: Male Functional Status Question Answer Note LastModified by Organizat ion Details LastModified Time Do you use any illicit or recreational drugs? No [email or web address] Information not available 04/19/2023 Do you or have you ever used any other forms of tobacco or nicotine? No [email or web address] Information not available 04/19/2023 What is your level of alcohol consumption? Moderate 2-3x/wk [email or web address] Information not available 09/02/2023 Do you or have you ever used smokeless tobacco? Never used smokeless tobacco [id number].[id number] Information not available 07/18/2022 Do you have transportation difficulties? No [email or web address] Information not available 04/19/2023 Are you able to walk independently without assistance or assistive devices? YESWOREST [email or web address] Information not available 04/19/2023 Do you have difficulty doing errands alone? No [email or web address] Information not available 04/19/2023 Are you able to care for yourself independently? Yes [email or web address] Information not available 04/19/2023 What is your occupation? Retired Information not available 04/19/2023 Do you have difficulty dressing, bathing, grooming, or toileting? No [email or web address] Information not available 04/19/2023 Do you or have you ever used e-cigarettes or vape? Never used electronic cigarettes [email or web address] Information not available 04/19/2023 What is your exercise level? Occasional [id number] Information not available 07/18/2022 Mental Status Question Answer Note LastModified by Organizat ion Details LastModified Time Do you feel stressed (tense, restless, nervous, or anxious, or unable to sleep at night)? [id number] [email or web address] Information not available 04/19/2023 Do you have difficulty concentrating, remembering or making decisions? No Information no t available 04/19/2023 Family History Relationship Description Onset Age of this Age Resolved Age Notes LastModified by Organization Details LastModified Time Mother Malignant neoplasm of lung [id number] Not available 07/18/2022 02:42:57 Notes:Blood clot- father Medical History Condition Response GOUT Y GERD/NAUSEA Y COPD Y HYPERTENSION Y HIGH CHOLESTEROL / HYPERLIPIDEMIA Y Immunizations Vaccine Type Date Status Note Provider Nam e and Address Organization Details Recorded Time COVID-19, mRNA, LNP-S, PF, 30 mcg/0.3 mL dose 1 completed Not Available [facility] 07/18/2022 02:54:36 Influenza, high-dose, quadrivalent, PF 1 completed Not Available [facility] 07/18/2022 02:54:36 SARS-COV-2 (COVID-19) vaccine, UNSPECIFIED 1 completed Not Available [facility] 07/18/2022 02:54:37 SARS-COV-2 (COVID-19) vaccine, UNSPECIFIED 1 completed Not Available [facility] 07/18/2022 02:54:37 Influenza, high-dose, trivalent, PF 9 completed Not Available [facility] 07/18/2022 02:54:37 Influenza, split virus, trivalent, preservative 7 completed Not Available [facility] 07/18/[facility]22 02:54:37 pneumococcal polysaccharide PPV23 7 completed Not Available [facility] 07/18/2022 02:54:37 Influenza, high-dose, trivalent, PF 0 completed Not Available [facility] 07/18/2022 02:54:37 influenza nasal, unspecified formulation 5 completed Not Available [facility] 07/18/2022 02:54:37 pneumococcal polysaccharide PPV23 4 completed Not Available [facility] 07/18/2022 02:54:37 Influenza, split virus, trivalent, PF 4 completed Not Available [facility] 07/18/2022 02:54:37 Influenza, high-dose, trivalent, PF 6 completed Not Available [facility] 01/14/2025 10:39:30 Pneumococcal conjugate PCV 13 6 completed Not Available [facility] 01/14/2025 10:39:30 COVID-19, mRNA, LNP-S, PF, 100 mcg/0.5mL dose or 50 mcg/0.25mL dose 2 completed Not Available [facility] 01/14/2025 10:39:30 COVID-19, mRNA, LNP-S, bivalent, PF, 30 mcg/0.3 mL dose 2 completed Not Available [facility] 01/14/2025 10:39:30 Influenza, high-dose, quadrivalent, PF 2 completed Not Available [facility] 01/14/2025 10:39:30 RSV, recombinant, protein subunit RSVpreF, adjuvant reconstituted, 0.5 mL, PF 3 completed Not Available [facility] 01/14/2025 10:39:30 Influenza, high-dose, quadrivalent, PF 3 completed Not Available [facility] 01/14/2025 10:39:30 COVID-19, mRNA, LNP-S, PF, ziggy-sucrose, 30 mcg/0.3 mL 3 completed Not Available [facility] 01/14/2025 10:39:30 zoster recombinant 4 completed Not Available [facility] 01/14/2025 10:39:30 zoster recombinant 4 completed Not Available [facility] 01/14/2025 10:39:30 Past Encounters Encounter ID Performer Location Encounter Start Date Encounter Closed Date Diagnosis/Indication Diagnosis SNOMED-CT Code Diagnosis ICD10 Code Diagnosis IMO Codes Diagnosis Note [id number] MD JEFF RodriguezS_[facility] [address] [facility] [place] [address] 08/30/2020 00:00:00 08/30/2020 12:16:34 [id number] _ATHN_MIGR ATION_1 _ATHENA_M IGRATION_ DEFAULT_1 _1 , 10/12/2020 00:00:00 10/12/2020 11:39:09 [id number] Elmer Tejeda MD [facility] [address] [place] [address]. [place] [address] 12/27/2020 00:00:00 12/27/2020 10:48:46 [id number] MD HENNY [facility] [address] [place] [address]. [place] [address] 04/26/2021 00:00:00 04/26/2021 13:17:38 [id number] MD HENNY [facility] [address] [place] [address]. [place] [address] 08/28/2021 00:00:00 08/28/2021 10:02:42 [id number] MD HENNY [facility] [address] [place] [address] 12/18/2021 00:00:00 12/18/2021 10:10:52 [id number] MD HENNY Rodriguez_[facility] [address] [place] [address]. [place] [address] 04/19/2022 00:00:00 04/19/2022 10:09:01 [id number] MD JEFF RodriguezS_[facility] Internal [facility] [address] [place] [address] 06/07/2022 00:00:00 06/07/2022 12:04:24 [id number] [facility] Internal [facility] [address] [place] [address] 08/20/2022 09:52:55 08/20/2022 10:29:50 Essential hypertension 04215545 I10 Under control Chronic ob structive pulmonary disease 27981624 J44.9 Under control with inhalers Gout 32644021 M10.9 no recurrence Hyperlipidemia 74746852 E78.5 Stable watch diet Gastroesop hageal reflux disease 910930109 K21.9 Better Erectile dysfunction 860 424901 F52.21 Meds help Malignant neoplasm of prostate 719303212 C61 PSA- stable Adult heal th examination 953351120 Z00.00 Colonoscop y- 11/2020, polyp, next in 5 yrsPSA- 2[facility] v[facility] 2016 [facility], [facility]/2017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 [address] 12/20/2022 10:00:02 12/20/2022 10:42:27 Essential hypertension 99894872 I10 Under control Chronic ob structive pulmonary disease 88516297 J44.9 Under control with inhalers, o2 as needed Gout 82037272 M10.9 no recurrence Hyperlipidemia 78203081 E78.5 Stable watch diet Gastroesop hageal reflux disease 387028261 K21.9 Better Malignant neoplasm of prostate 307988950 C61 PSA- stable Adult heal th examination 906377059 Z00.00 Colonoscop y- 11/2020, polyp, next in 5 yrsPSA- re gallito 2016 @ Jan [facility]- 04/2014, 02/2017[facility] T- 10/05/2020 FLU- 2COV ID- #1- 06/23/20, #2- 07/26/20, all boosters Pleural effusion 5705634 8 J90 improved History of polyp of colon 472209443 Z86.010 Family his tory of aneurysm of thoracic aorta 761092788 Z82.49 seeing cardiology Thrombosis of thoracic aorta 60548581 I74.11 on xarelto, he needs it for life long due to previous h/o of DVT [id number] Elmer Tejeda MD S_[facility] [address] [place] [address] 04/19/2023 10:04:21 04/22/2023 09:55:17 Essential hypertension 51443433 I10 watch Chronic ob structive pulmonary disease 01739207 J44.9 Under control with inhalers, o2 as needed Gout 52942281 M10.9 no recurrence Hyperlipidemia 65028228 E78.5 Stable watch diet Gastroesop hageal reflux disease 658004568 K21.9 Better Malignant neoplasm of prostate 336563136 C61 PSA- stable Pleural effusion 2929765 8 J90 improved History of polyp of colon 889142805 Z86.010 Family his tory of aneurysm of thoracic aorta 843271625 Z82.49 seeing cardiology Thrombosis of thoracic aorta 47557210 I74.11 on xarelto, he needs it for life long due to previous h/o of DVT Adult heal th examination 611798505 Z00.00 Colonoscop y- 11/2020, polyp, next in 5 yrsPSA- 2022 at urology , was 0.4Prevnar 2016 @ Jan [facility]- 04/2014, 02/2017[facility] T- 10/05/2020 FLU- 10/2022COV ID- #1- 06/23/20, #2- 07/26/20, all boosters Upper resp iratory infection 79265410 J06.9 mucinex prn , call next week if not better [id number] Elmer Tejeda MD [facility] Internal Med [address] [place] [address] 09/02/2023 11:39:10 09/02/2023 12:15:37 Essential hypertension 89044415 I10 ^ the amlodipine Chronic ob structive pulmonary disease 00551753 J44.9 Under control with inhalers, o2 as needed Gout 04153666 M10.9 no recurrence Hyperlipidemia 21208990 E78.5 Stable watch diet Gastroesop hageal reflux disease 939854453 K21.9 Better Malignant neoplasm of prostate 139043981 C61 PSA- stable Pleural effusion 0569867 8 J90 improved Family his tory of aneurysm of thoracic aorta 839335133 Z82.49 seeing cardiology Thrombosis of thoracic aorta 41140640 I74.11 on xarelto, he needs it for life long due to previous h/o of DVT Adult heal th examination 160780054 Z00.00 Colonoscop y- 11/2020, polyp, next in 5 yrsPSA- 2022 at urology , was 0.4Prevnar 2016 @ Jan [facility]- 04/2014, 02/2017[facility] T- 10/05/2020 , CT-Chest- 12/18/2022, PET- 09/18/2022 FLU- 02/2022, 02/22/2023R SV- 02/22/2023 OVID- #1- 06/23/20, #2- 07/26/20, 02/28/2023 all boosters Acid reflux 442732243 K2 1.9 Screening for disorder 478432554 Z13.9 [id number] [address] [facility] Internal Med [address] [facility] [place] [address] 12/31/2023 10:43:14 12/31/2023 11:14:03 Essential hypertension 97382639 I10 better since dose was increased Chronic ob structive pulmonary disease 74074775 J44.9 Under control with inhalers, o2 as needed Gout 78116056 M10.9 no recurrence Hyperlipidemia 67165315 E78.5 Stable watch diet Gastroesop hageal reflux disease 441872293 K21.9 Better Malignant neoplasm of prostate 383128550 C61 PSA- stable, being li at urology Pleural effusion 4585833 8 J90 improved Thrombosis of thoracic aorta 13194580 I74.11 on xarelto, he needs it for life long due to previous h/o of DVT Acid reflux 276948541 K2 1.9 meds help Adult heal th examination 131184371 Z00.00 Colonoscop y- 11/2020, polyp, next in 5 yrsPSA- at urologyPre vnar 2016 @ Jan [facility]- 04/2014, 02/2017[facility] T- 10/05/2020 , CT-Chest- 12/18/2022, PET- 09/18/2022 FLU- 02/2022, 02/22/2023R SV- 02/22/2023 OVID- #1- 06/23/20, #2- 07/26/20, 02/28/2023 all boosters Ex-smoker 4701671 Z87.89 1 has quit long time ago Malignant neoplasm of lung 915645118 C34.90 s/p RT, getting CT chest for f/u next month [id number] Elmer Tejeda MD S_[facility] Internal [id number] [facility] [place] [address] 02/20/2024 13:58:54 02/20/2024 14:37:06 Edema of lower extremity 077075978 R60.0 could be due to amlodipine , will cut done the dose to 5 mgwill try Furosemide less likely DVT, although at high risk due yo cancer but already on xarelto Essential hypertension 64653249 I10 decrease the dose [id number] Elmer Tejeda MD S_[facility] Internal Med [address] [facility] [place] [address] 03/24/2024 10:39:30 03/24/2024 11:02:13 Essential hypertension 06406221 I10 under control Edema 412919943 R60.9 improvedst op furosemide call if starts swelling again [id number] Elmer Tejeda MD [facility] Internal Med [address] [place] [address] 06/17/2024 12:20:12 06/17/2024 12:48:52 Candidiasis of mouth 39250613 B37.0 [id number] [address] [facility] Internal Med [address] [place] [address] 09/14/2024 10:56:53 09/14/2024 12:29:50 Essential hypertension 04994710 I10 under control Chronic ob structive pulmonary disease 94369195 J44.9 Under control with inhalers, o2 as needed Gout 22291900 M10.9 no recurrence Hyperlipidemia 72318086 E78.5 Stable watch diet Gastroesop hageal reflux disease 357754190 K21.9 meds help Malignant neoplasm of prostate 229227539 C61 PSA- stable, being done at urology Pleural effusion 3917742 8 J90 improved Thrombosis of thoracic aorta 78909922 I74.11 on xarelto, he needs it for life long due to previous h/o of DVT Acid reflux 586872514 K2 1.9 meds help Adult heal th examination 540188062 Z00.00 Colonoscop y- 11/2020, polyp, next in 5 yrsPSA- at urologyP gallito 2016 @ Jan [facility]- 04/2014, 02/2017[facility] T- 10/05/2020 , CT-Chest- 12/18/2022, PET- 09/18/2022 FLU- 02/2022, 02/22/2023R SV- 02/22/2023 OVID- #1- 06/23/20, #2- 07/26/20, 02/28/2023 all boosterssh ingrix x 2 Ex-smoker 4451586 Z87.89 1 has quit long time ago Malignant neoplasm of lung 272539188 C34.90 s/p RT, Pemphigus 03026477 L10.9 better [id number] Elmer Tejeda MD S_[facility] Internal Med [address] [place] [address] 01/14/2025 10:37:50 01/14/2025 11:15:40 Essential hypertension 31751304 I10 LOW, cut down the atenolol to 50 mg qd Chronic ob structive pulmonary disease 44926021 J44.9 Under control with inhalers, o2 as needed Gout 78247546 M10.9 no recurrence Hyperlipidemia 55804845 E78.5 getting low, stop the meds Gastroesop hageal reflux disease 756501725 K21.9 meds help Malignant neoplasm of prostate 288111787 C61 PSA- stable, being done at urology, does not want to f/u with urology any more Pleural effusion 4688254 8 J90 improved Thrombosis of thoracic aorta 61037246 I74.11 on xarelto, he needs it for life long due to previous h/o of DVT Acid reflux 538306158 K2 1.9 meds help Adult heal th examination 656169184 Z00.00 Colonoscop y- 11/2020, polyp, [facility] T- 10/05/2020 , CT-Chest- 12/18/2022, PET- 09/18/2022 FLU- 02/2022, 02/22/2023R SV- 02/22/2023 OVID- #1- 06/23/20, #2- 07/26/20, 02/28/2023 all boosterssh ingrix x 2 Ex-smoker 5142102 Z87.89 1 has quit long time ago Malignant neoplasm of lung 263355456 C34.90 s/p RT, Pemphigus 17311946 L10.9 improved Health Concerns Section Related Observation LastModified by Organization Detai ls LastModified Time None Recorded Concern Status LastModified by Organization Details LastModified Time None Recorded Advance Directives Directive Y: Payers Insurance Date Sequence Insurance Name Policy Number Policy Leonard Covered Member ID Leonard Member ID Guarantor Name 01/08/2025 [facility] Donta FARRAR GARRISON GRISEL LUTZ GARRISON Donta Doherty 01/11/2025 1 [place] Donta Doherty [id number] Donta Doherty 01/13/[address] [place] [address] (MEDICARE SUPPLEMENT) PLAN G Donta Doherty [id number] Donta Forrest Bessy Notes Date Note Type Note Provider Name and Address Organization Details Recorded Time 02/20/2024 text/html ROS as noted in the HPI Pt is here today for bilateral ankle [...] DVT in the past Elmer Tejeda MD [employer], [employer], [place], [address], [place] 02/20/2024 15:54:57 03/24/2024 text/html ROS as noted in the HPI Pt is here today for a 1 month follow upHe is currently on Furosemide for bilateral lower leg edema which has cleared.amlodipine was decreased to 5 mgHe has lost 7 lbs Elmer Tejeda MD [employer], [address], [place], [address], [place] 03/24/2024 11:01:45 06/17/2024 text/html ROS as noted in the HPI Pt is here today for a sick visit. He is having trouble with his tongue with burning sensations and sore throat and only able to have liquids . Pt is also drooling and is concerned about it. he is taking an antibiotic but hasnt helped it.He was treated for thrush with nystatin but not better.no pain on swallowingno fever Elmer Tejeda MD [address], [employer], [place], [address], [place] 06/17/2024 12:43:49 09/14/2024 text/html Doing fine, compliant [...] better, eating better and gaining weight Elmer Tejeda MD [address] [facility], [facility] [address], [place], [address], [facility] [employer] 09/14/2024 11:27:38 01/14/2025 text/html Doing fine, compliant to medications, no side affects, here for follow up. He has no complaints.PT IS NOT FASTING (MEDICARE)HTN- BP is low, amlodipine was stopped, will adjust the dose of atenololMeds- Atenolol 100 mg daily COPD, better with inhalers, sees Duran Waters NP, using o2 as neededMeds- Breztri 160 mcg/9 mcg 2 puffs BID , Ventolin inhaler PRNHe is ex- smoker. Quit 2005Lu cancer- non small cell, s/p Radiation, seeing Dr Chamberlain, nodule was slightly bigger and getting another CT in a monthAAA. with thrombus- had CT angio, Sees Dr. Sheth, gets ultra sound every year, CTA in 06/11 , needs meds for life time due to h/o DVT in the pastMeds- Xarelto 20 mg dailyGout- no flare up recently- Last flare up was 05/10GERD- better with medsMeds- Pantoprazole 40 mg daily prnHyperlipidemia- labs 11/10Meds- Simvastatin 20 mg daily , WILL BE STOPPED Prostate cancer- had prostate MRI and biopsy, s/p RT 2021, Dr Lowry, gets PSA at urologyPleural effusion s/p thoracentesis x 2, seeing pulmAlcohol abuse-- does not drink beer any more, drinks wine , LFT nl Sore throat due to Pemphigus, took steroids and infusions, much better, eating better. HAS LOST 30 LBS IN A YEAR Elmer Tejeda MD [address] [facility], [facility] [address], [place], [address], [place] [facility] 01/14/2025 11:11:44
--- OUTSIDE RECORDS SUMMARY | 2025-04-13 13:40 | XMS_ITS | Continuity of Care Document ---
Author Organization [place] - [facility] [employer] [facility], [facility] Internal Med [facility] Address [address] [place] [address] Care Team Providers Care Typewriters Functional Tester Name Role Phone ELMER TEJEDA Primary Care Provider Assessment No assessment recorded. Plan of Treatment Reminders Order Date Submit Date Provider Last Modified By Organization Details Last Modified Time Details Appointments Any 15 2025 10:45A M Elmer Tejeda MD Not available Not available Not available Lab None recorded. Referral None recorded. Procedures None recorded. Surgeries None recorded. Imaging None recorded. Medication Orders atenolol [address] [facility] [address] [place], [address], 01/14/2025 11:09:23 Patient TargetsNo targets recorded. Patient InstructionsNo instructions recorded. Reason for Referral None Reported. Results Created Date Observation Date Name Description Value Unit Range Abnormal Flag Note LastModifiedBy Organization Detail LastModifiedTime 12/26/1912/24/2024 maxx can cardi olite stres s test (PROC ) No observ ation record ed. Not Available 2024 12:43:01 02/17/20 25 02/08/2025 CT, chest , w/ contr ast No observ ation record ed. Not Available 2024 08:47:34 Result Notes None recorded. Problems Name Problem SNOMED Code Status Onset Date Resolution Date Notes Provider Name and Address Organization Details Recorded Time Chronic obstruct flower pulmonar y disease 15504947 Active Not Available [facility] 3 02:48:08 Hyperkal emia 40487972 Active Not Available [facility] 3 02:48:08 Melanocy tic nevus 606563752 Completed Not Available [facility] 3 02:48:09 Epidermo id cyst of skin 837998553 Completed Not Available [facility] 3 02:48:09 Solitary nodule of lung 477115327 Active Not Available [facility] 3 02:48:09 History of polyp of colon 627885021 Active Not Available [facility] 3 02:48:09 Aneurysm of thoracic aorta 181821476 Active Not Available [facility] 3 02:48:09 Cough 60538472 Completed Not Available [facility] 3 02:48:09 Upper respirat ory infectio n 25098667 Completed Elmer Tejeda MD [address] [facility], [facility] [address], [place], [address] , [facility] [employer] [facility] 3 11:11:50 Hyperlip idemia 60086895 Active Not Available [facility] 3 02:48:09 Occult blood detected in feces 57204394 Active history of heme pos stools, no hemorrho ids in the past Not Available [facility] 3 02:48:10 [facility] l hyperten trey 92609283 Active Not Available [facility] 3 02:48:10 Polyp of colon 29174037 Active Not Available [facility] 3 02:48:10 Gout 56600208 Active Not Available [facility] 3 02:48:10 Severe chronic obstruct flower pulmonar y disease 784886663 Active 2016 Not Available [facility] 3 02:48:09 Former heavy tobacco smoker 62629365044 4100 Active 2016 Not Available [facility] 3 02:48:09 Fracture of calcaneu s 001482385 Completed 201712/12/2021 Not Available [facility] 3 02:48:08 Postoper ative visit 948059803 Completed 201712/12/2021 Not Available [facility] 3 02:48:08 Gastroes ophageal reflux disease 805340379 Active 2020 Not Available [facility] 3 02:48:08 Erectile dysfunct ion 697998596 Active 2020 Not Available [facility] 3 02:48:10 Prostate specific antigen above referenc e range 134469044 Active 2021 Not Available [facility] 3 02:48:09 Malignan t neoplasm of prostate 878684594 Active 2021 Not Available [facility] 3 02:48:09 Liver function tests outside referenc e range 727173584 Active 2022 Krystina lawrence RMA null, [place] [facility] 3 10:00:45 Pneumoni a 890235250 Completed 202208/20/2022 Krystina lawrence RMA null, [facility] 3 10:00:38 Pleural effusion 56430381 Active 2022 Elmer Tejeda MD [address], [place], [address] , [facility] 3 10:21:33 Thrombos is of thoracic aorta 36886770 Active 2022 Elmer Tejeda MD [address], [place], [address] , [facility] 3 10:28:10 Upper respirat ory infectio n 08882797 Active 2022 Elmer Tejeda MD [address], [place], [address] , [facility] 3 11:11:50 Acid reflux 880491710 Active 2023 Krystina lawrence RMA null, [facility] 4 11:49:02 Malignan t neoplasm of lung 729237814 Active 2023 Elmer Tejeda MD [address], [place], [address] , [facility] [employer] [facility] [employer] [facility] 4 11:09:13 Edema of lower extremit y 161688656 Active 2023 Elmer Tejeda MD [address], [place], [address] , [facility] [employer] [facility] [employer] [facility] 4 14:25:09 Edema 513448637 Active 2023 Elmer Tejeda MD [address], [place], [address] , [facility] [employer] [facility] [employer] [facility] 4 10:59:59 Sinusiti s 81303785 Active 2024 Rona Dunbar MA [facility], [employer] [facility] [employer] 5 11:36:00 Candidia sis of mouth 86056013 Active 2024 Elmer Tejeda MD [address], [place], [address] , [facility] [employer] [facility] [employer] 5 12:39:31 Compress ion fracture of thoracic vertebra 12498360434 04 Active 2024 Elmer Tejeda MD [address], [place], [address] , [facility] [employer] [facility] [employer] 5 09:34:47 Pemphigu s 57194723 Active 2024 Elmer Tejeda MD [address], [address], [place], [address] , [facility] [employer] [facility] [employer] [facility] 5 11:23:47 Problem Notes None recorded. Procedures Surgical History Date Name Laterality Status Provider Name and Address Organization Details Recorded Time 09/02/19 24 Medicare Wellness CPT Code, subsequent completed Brianna Urbina RN [facility] [employer] [facility] 09/02/2023 11:57:36 08/21/19 Medicare Wellness CPT Code, subsequent completed Amy Vincent RN [facility] [employer] [facility] 08/20/2022 10:29:04 Orthopedic Surgery completed Not Available [facility] 07/18/2022 02:42:55 colonoscopy completed Not Available [facility] 07/18/2022 02:42:55 Imaging Results None recorded. Procedure Notes None recorded. Medical Equipment None Reported. Allergies No known drug allergies Medications Name Sig Start Date Stop Date Status Note LastModified by Organization Details LastModified Time lido2%/ny gc748g/pr edn15/5 susp SWISH AND SWALLOW 5-10ML BY [...] completed Not Available Not Available Not Available [employer] 160 mcg-9mcg- 4.8mcg/ac tuation HFA [...] Updated DateTime 5 175.26 cm 21 kg/m2 51394.1 2 g 97.6 [degF] 76 /min 93 % 2 L/min 108/80 mm[Hg] ROYER Caro [employer] 5 10:50:28 Social History Question Answer Notes LastModified by Organization Details LastModified Time Tobacco Smoking Status Former Smoker Quit- 2005 Radha Nowak RN [facility], [employer] 04/19/2023 10:06:59 Do You Have An Advance Directive? Yes [id number] Information not available 07/18/2022 Do You Wear A Helmet When Biking? No [email or web address] Information not available 04/19/2023 Are You Blind Or Do You Have Difficulty Seeing? No [email or web address] Information not available 04/19/2023 What Is Your Level Of Caffeine Consumption? Occasional 1 Cup Coffe In The Morning MIGRATION.030 [id number] Information not available 07/18/2022 How Much Tobacco Do You Chew? None [email or web address].030 [id number] Information not available 07/18/2022 Are You Deaf Or Do You Have Serious Difficulty Hearing? No [email or web address] Information not available 04/19/2023 What Type Of Diet Are You Following? REGULAR MIGRATION.030 [id number] Information not available 07/18/2022 Which Illicit Or Recreational Drugs Have You Used? None [email or web address] Information not available 04/19/2023 What Is The Highest Grade Or Level Of School You Have Completed Or The Highest Degree You Have Received? [id number] [email or web address] Information not available 04/19/2023 Have There Been Any Changes To Your Family Or Social Situation? No [email or web address] Information not available 04/19/2023 What Is The Fluoride Status Of Your Home? Fluoridated [email or web address] Information not available 04/19/2023 When Did You Quit Smoking? 16+yearssincelastc igarette [email or web address] Information not available 04/19/2023 Are There Any Guns Present In Your Home? No [email or web address] Information not available 04/19/2023 Do You Use Insect Repellent Routinely? No [email or web address] Information not available 04/19/2023 Where Do You Live? SingleLevelHouse [email or web address] Information not available 04/19/2023 Advance Directive- Providers Has Reviewed Directive And Consents To Follow Them (insert Provider Name With Any Objectives In Notes Field) Yes [email or web address] Information not available 08/20/2022 Guns Present In The Home? Yes [email or web address] Information not available 09/02/2023 Are You Able To Care For Yourself? Yes [email or web address] Information not available 08/20/2022 Are You Blind Or Do Yo Have Difficulty Seeing? No [email or web address] Information not available 08/20/2022 Are You Deaf Or Do You Have Serious Difficulty Hearing? No [email or web address] Information not available 08/20/2022 General Stress Level? Low [email or web address] Information not available 08/20/2022 Live Alone Of With Others? With Others [email or web address] Information not available 08/20/2022 Do You Have A Medical Power Of Sales Warehouse Driver? Yes Information not available 04/19/2023 What Was The Date Of Your Most Recent Tobacco Screening? 01/14/2025 [email or web address] Information not available 01/14/2025 Do You Have Any Pets? No Information not available 04/19/2023 What Is Your Relationship Status? [id number].[id number] Information not available 07/18/2022 Do You Use Your Seat Belt Or Car Seat Routinely? Yes Information not available 04/19/2023 Do You Have Smoke And Carbon Monoxide Detectors In Your Home? Yes [email or web address] Information not available 04/19/2023 At What Age Did You Start Smoking Tobacco? 12 Information not available 04/19/2023 Are You Passively Exposed To Smoke? No [email or web address] Information not available 04/19/2023 How Much Tobacco Do You Smoke? 3+ PPD MIGRATION.0301 [id number] Information not available 07/18/2022 Do You Use Sunscreen Routinely? No [email or web address] Information not available 04/19/2023 Has Tobacco Cessation Counseling Been Provided? No [email or web address] Information not available 04/19/2023 How Many Years Have You Smoked Tobacco? 43 [email or web address] Information not available 04/19/2023 Have You Recently Traveled Abroad? Yes Last Mo Went To [place] [email or web address] Information not available 04/19/2023 Do You Have Difficulty Walking Or Climbing Stairs? No [email or web address] Information not available 04/19/2023 Do You Have Any Dietary Restrictions? No [email or web address] Information not available 04/19/2023 Sex: Male Functional Status Question Answer Note LastModified by [employer] Details LastModified Time Do you use any illicit or recreational drugs? No [email or web address] Information not available 04/19/2023 Do you or have you ever used any other forms of tobacco or nicotine? No [email or web address] Information not available 04/19/2023 What is your level of alcohol consumption? Moderate 2-3x/wk [email or web address] Information not available 09/02/2023 Do you or have you ever used smokeless tobacco? Never used smokeless tobacco MIGRATION.[id number] [id number] Information not available 07/18/2022 Do you have transportation difficulties? No [email or web address] Information not available 04/19/2023 Are you able to walk independently without assistance or assistive devices? YESWOREST [email or web address] Information not available 04/19/2023 Do you have difficulty doing errands alone? No [email or web address] Information not available 04/19/2023 Are you able to care for yourself independently? Yes [email or web address] Information not available 04/19/2023 What is your occupation? Retired [email or web address] Information not available 04/19/2023 Do you have difficulty dressing, bathing, grooming, or toileting? No [email or web address] Information not available 04/19/2023 Do you or have you ever used e-cigarettes or vape? Never used electronic cigarettes [email or web address] Information not available 04/19/2023 What is your exercise level? Occasional [id number].[id number] Information not available 07/18/2022 Mental Status Question Answer Note LastModified by Organizat ion Details LastModified Time Do you feel stressed (tense, restless, nervous, or anxious, or unable to sleep at night)? FG1739-4 [email or web address] Information not available 04/19/2023 Do you have difficulty concentrating, remembering or making decisions? No [email or web address] Information no t available 04/19/2023 Family History Relationship Description Onset Age of this Age Resolved Age Notes LastModified by Organization Details LastModified Time Mother Malignant neoplasm of lung MIGRATION.167 [id number] Not available 07/18/2022 02:42:57 Notes:Blood clot- father Medical History Condition Response GOUT Y GERD/NAUSEA Y COPD Y HYPERTENSION Y HIGH CHOLESTEROL / HYPERLIPIDEMIA Y Immunizations Vaccine Type Date Status Note Provider Nam e and Address Organization Details Recorded Time COVID-19, mRNA, LNP-S, PF, 30 mcg/0.3 mL dose 1 completed Not Available [facility] 07/18/2022 02:54:36 Influenza, high-dose, quadrivalent, PF 1 completed Not Available [facility] 07/18/2022 02:54:36 SARS-COV-2 (COVID-19) vaccine, UNSPECIFIED 1 completed Not Available [facility] 07/18/2022 02:54:37 SARS-COV-2 (COVID-19) vaccine, UNSPECIFIED 1 completed Not Available [facility] 07/18/2022 02:54:37 Influenza, high-dose, trivalent, PF 9 completed Not Available [facility] 07/18/2022 02:54:37 Influenza, split virus, trivalent, preservative 7 completed Not Available [facility] 07/18/2022 02:54:37 pneumococcal polysaccharide PPV23 7 completed Not Available [facility] 07/18/2022 02:54:37 Influenza, high-dose, trivalent, PF 0 completed Not Available [facility] 07/18/2022 02:54:37 influenza nasal, unspecified formulation 5 completed Not Available [facility] 07/18/2022 02:54:37 pneumococcal polysaccharide PPV23 4 completed Not Available [facility] 07/18/2022 02:54:37 Influenza, split virus, trivalent, PF 4 completed Not Available [facility] 07/18/2022 02:54:37 Influenza, high-dose, trivalent, PF 6 completed Not Available [facility] 01/14/2025 10:39:30 Pneumococcal conjugate PCV 13 6 completed Not Available [facility] 01/14/2025 10:39:30 COVID-19, mRNA, LNP-S, PF, 100 mcg/0.5mL dose or 50 mcg/0.25mL dose 2 completed Not Available [facility] 01/14/2025 10:39:30 COVID-19, mRNA, LNP-S, bivalent, PF, 30 mcg/0.3 mL dose 2 completed Not Available [facility] 01/14/2025 10:39:30 Influenza, high-dose, quadrivalent, PF 2 completed Not Available [facility] 01/14/2025 10:39:30 RSV, recombinant, protein subunit RSVpreF, adjuvant reconstituted, 0.5 mL, PF 3 completed Not Available [facility] 01/14/2025 10:39:30 Influenza, high-dose, quadrivalent, PF 3 completed Not Available [facility] 01/14/2025 10:39:30 COVID-19, mRNA, LNP-S, PF, ziggy-sucrose, 30 mcg/0.3 mL 3 completed Not Available [facility] 01/14/2025 10:39:30 zoster recombinant 4 completed Not Available [facility] 01/14/2025 10:39:30 zoster recombinant 4 completed Not Available [facility] 01/14/2025 10:39:30 Past Encounters Encounter ID Performer Location Encounter Start Date Encounter Closed Date Diagnosis/Indication Diagnosis SNOMED-CT Code Diagnosis ICD10 Code Diagnosis IMO Codes Diagnosis Note [id number] Elmer Tejeda MD [facility] [address] [place] [address] 01/14/2025 10:37:50 01/14/2025 11:15:40 Essential hypertension 75501635 I10 LOW, cut down the atenolol to 50 mg qd Chronic ob structive pulmonary disease 87624566 J44.9 Under control with inhalers, o2 as needed Gout 45856344 M10.9 no recurrence Hyperlipidemia 25797081 E78.5 getting low, stop the meds Gastroesop hageal reflux disease 441262009 K21.9 meds help Malignant neoplasm of prostate 197124937 C61 PSA- stable, being done at urology, does not want to f/u with urology any more Pleural effusion 3384643 8 J90 improved Thrombosis of thoracic aorta 59820201 I74.11 on xarelto, he needs it for life long due to previous h/o of DVT Acid reflux 116663638 K2 1.9 meds help Adult heal th examination 523585038 Z00.00 Colonoscop y- 11/2020, polyp, [facility] umovax- 04/2014, 02/2017LDC T- 10/05/2020 , CT-Chest- 12/18/2022, PET- 09/18/2022 FLU- 02/2022, 02/22/2023R SV- 02/22/2023 OVID- #1- 06/23/20, #2- 07/26/20, 02/28/2023 all boosterssh ingrix x 2 Ex-smoker 0376738 Z87.89 1 has quit long time ago Malignant neoplasm of lung 593819185 C34.90 s/p RT, Pemphigus 36468071 L10.9 improved Health Concerns Section Related Observation LastModified by Organization Detai ls LastModified Time None Recorded Concern Status LastModified by Organization Details LastModified Time None Recorded Payers Encounter Date Sequence Insurance Name Policy Number Policy Leonard Covered Member ID Leonard Member ID Guarantor Name 01/14/2025 1 [place] Donta Doherty [id number] Donta Doherty 01/14/2025 2 [facility] (MEDICARE SUPPLEMENT) PLAN G Donta Doherty [id number] Donta Doherty Notes Date Note Type Note Provider Name and Address Organization Details Recorded Time 01/14/2025 text/html Doing fine, compliant to medications, no side affects, here for follow up. He has no complaints.PT IS NOT FASTING (MEDICARE)HTN- BP is low, amlodipine was stopped, will adjust the dose of atenololMeds- Atenolol 100 mg daily COPD, better with inhalers, sees Duran Waters [facility]ER, using o2 as neededMeds- Breztri 160 mcg/9 mcg 2 puffs BID , Ventolin inhaler PRNHe is ex- smoker. Quit 2005Lung cancer- non small cell, s/p Radiation, seeing [...] IN A YEAR Elmer Tejeda MD [address] [facility], [facility] [address], [place], [address], [place] [facility] [employer] 01/14/2025 11:11:44
--- OUTSIDE RECORDS SUMMARY | 2025-04-13 13:40 | XMS_ITS | Clinical Summary ---
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 Hep C Ab Nonreactive Nonreactive [facility] Comment: Interpretive Data Nonreactive: Antibodies to HCV [...] last revised on 2019. HepBsAg Nonreactive Nonreactive [facility] Blood 07/31/2024 12:0 0 PM CDT 07/31/2024 4:00 PM CDT Farhad Arriola MD LAB MICROBIOLOGY - GENERA L ORDERABLES Final Result [facility] [address] [place] [address] from Last 3 Months or Most Recently Relevant to Health Maintenance Insurance MEDICARE [facility] MEDICARE [facility] MEDICARE [facility] Care Teams Hotel Breakfast Attendant Relationship Specialty Start Date End Date Martin Tejeda MD PCP - General 03/09/17
[2025-04-13] MEDS: MAGNESIUM SULF 2 GM/WATER 50ML 2 GM/50 ML BAG IVPB (13:44)
--- NOTE | 2025-04-13 13:48 | WPCEDHO ---
ED Hand Off Checklist All vitals saved:YES IV Site documented:YES All med administrations documented:YES Triage Note Triage Note patient arrives to the ED via EMS 04/13/25 11:37 from home. per EMS pt called d/t to feeling dizzy CP, and SOB. Hx of COPD, lung cancer, prostate cancer, aortic aneurysm that is being watched. 110/78 for EMS. pt arrives on 2L CO2 - 37 for EMS . PT took BP at home and was 90/ 65 Allergies No Known Allergies Allergy (Verified 12/11/24 11:02) PER UNCODED ALLERGIES 09/01/10 Family History (Last Reviewed 04/13/25 @ 12:40 by Fer Branham MD) Mother Family history of lung cancer Father Acute myocardial infarction VTE (venous thromboembolism) Active Medications including assessments/comments Magnesium Sulfate (Magnesium Sulf 2 Gm/Water 50ml) 2 gm in 50 mls @ 25 mls/hr IVPB ONCE ONE Stop: 04/13/25 14:55 Last Admin: 04/13/25 13:44 Dose: 25 mls/hr Documented By: JAYLAN Co-signed By: LILIA Infusion/Titration Document 04/13/25 13:44 [facility] (Rec: 04/13/25 13:44 [facility] [id number]) Co-signed By Annabel Rios RN Intake IV Site Peripheral Access Right Wrist Container Volume 50 Waste Amount 0 Dosing Infusion Rate 25 Increase/Decrease Started Elapsed Time Elapsed Time ( 0m minutes) Magnesium Sulfate Infusion Document 04/13/25 13:44 JAYLAN (Rec: 04/13/25 13:44 JAYLAN [id number]) Co-signed By Annabel Rios RN Infusion Action Magnesium Sulfate Initiated Infusion Action Administered/Completed Medications Discontinued Medications Aspirin (Aspirin 81 Mg Chewable Tablet) 324 mg PO ONCE STA Stop: 04/13/25 11:55 Last Admin: 04/13/25 12:57 Dose: Not Given Documented By: ABDOUL Non-Admin Reason: See MD/PA Documentation Aspirin (Aspirin 81 Mg Chewable Tablet) 324 mg PO ONCE STA Stop: 04/13/25 12:49 Last Admin: 04/13/25 12:57 Dose: Not Given Documented By: ABDOUL Non-Admin Reason: See ED Documentation Amiodarone HCl/Dextrose (Nexterone 150 Mg/D5w 100 Ml) 150 mg in 100 mls @ 600 mls/hr IV CONT .Q10M ONE Stop: 04/13/25 12:15 Last Infusion: 04/13/25 12:29 Dose: Infused Documented By: [facility] Admin: 04/13/25 12:13 Dose: 15 mg/min, 600 mls/hr Documented By: [facility] Amiodarone HCl/Dextrose (Nexterone 360 Mg/D5w 200 Ml) 360 mg in 200 mls @ 0 mls/hr IV CONT .Q0M ONE Stop: 04/13/25 12:07 Last Infusion: 04/13/25 12:36 Dose: 0 mg/min, 0 mls/hr Documented By: [facility] Admin: 04/13/25 12:27 Dose: 1 mg/min, 33.33 mls/hr Documented By: [facility] Sodium Chloride (Normal Saline Iv) 1,000 mls @ 999 mls/hr IV CONT .Q1H1M STA Stop: 04/13/25 13:06 Last Infusion: 04/13/25 13:39 Dose: Infused Documented By: Admin: 04/13/25 12:18 Dose: 999 mls/hr Documented By: [facility] Interventions/Assessments IV / Saline Lock, Insert Start: 04/13/25 11:32 Freq: Status: Active Protocol: Document 04/13/25 11:37 Guillermina (Rec: 04/13/25 11:49 [facility] [id number]) IV Assessment Peripheral Access Right Wrist IV Catheter Access Initiated IV Insertion Date 04/13/25 IV Insertion Time 11:49 Catheter Gauge 20 IV Insertion 2 Attempts IV Site Assessment WNL IV Care and WNL Maintenance Peripheral Access Left Antecubital IV Catheter Access Initiated Before Arrival IV Insertion Date 04/13/25 Catheter Gauge 20 IV Site Assessment WNL IV Care and WNL Maintenance IV / Saline Lock, Insert Start: 04/13/25 11:54 Freq: STAT Status: Active Protocol: Document 04/13/25 11:54 JAYLAN (Rec: 04/13/25 13:39 JAYLAN [id number]) IV Assessment Peripheral Access Right Wrist IV Catheter Access Initiated IV Insertion Date 04/13/25 IV Insertion Time 11:54 Catheter Gauge 20 IV Site Assessment WNL IV Care and WNL Maintenance Peripheral Access Left Antecubital IV Catheter Access Initiated Before Arrival Catheter Gauge 20 PA: Cardiovascular Assessment Start: 04/13/25 11:32 Freq: Status: Active Protocol: Document 04/13/25 11:37 JJJ (Rec: 04/13/25 11:49 [facility] [id number]) Cardiovascular Assessment Cardiovascular None Symptoms Skin Description Normal Color Heart Sounds Normal PA: Respiratory Assessment Start: 04/13/25 11:32 Freq: Status: Active Protocol: Document 04/13/25 11:37 JJJ (Rec: 04/13/25 11:49 [facility] [id number]) Respiratory Assessment Symptoms Cough,Shortness of Breath at Rest Effort Normal Pattern Regular Depth Normal Cough Description Chronic Cough Frequency Intermittent Sputum Amount Small Sputum Color White Sputum Consistency Frothy Cough Reflex Present Oxygen Delivery Oxygen Delivery Nasal Cannula Oxygen Flow Rate (L/ 2 min) Pulse Oximetry (90- 97 100 %) Last Vital Signs Temperature 97.8 F 04/13/25 11:37 Pulse Rate 86 04/13/25 13:31 Respiratory Rate 17 04/13/25 13:31 Pulse Oximetry 100 04/13/25 13:31 Blood Pressure 123/87 04/13/25 13:31 Blood Pressure Mean 92 04/13/25 13:31 Blood Pressure Position Sitting 04/13/25 11:37 Oxygen Delivery Nasal Cannula 04/13/25 11:37 Oxygen Flow Rate 2 04/13/25 11:37 Weight 65.8 kg 04/13/25 11:37 Last Result - Abnormals Only MPV 11.1 fl (7.4-10.4) H 04/13/25 11:55 Rush % (Auto) 11.0 % (2.6-8.5) H 04/13/25 11:55 [place] # (Auto) 1.0 K/mm3 (0.1-0.6) H 04/13/25 11:55 PT 16.9 Seconds (11.1-14.7) H 04/13/25 11:55 Glucose 113 mg/dL (65-110) H 04/13/25 11:55 Troponin I 0.083 ng/mL (0.000-0.034) H* 04/13/25 11:55 Most Recent Suicide Severity Rating Suicide Severity Rating NO RISK INDICATED 04/13/25 11:37
--- NOTE | 2025-04-13 14:48 | PC.NURSE ---
This patient, Donta Collins, was admitted to IMU status, and placed in Intensive Care Unit-5. Patient/family oriented to hospital policies and general routines including ID bracelet, bed and alarms, visiting hours, pain management, procedures, bathroom and other care routines, personal items, smoking policy, room service/diet, and visiting hours. Valuables list has been completed. Information on how to activate the Rapid Response Team has been discussed. Patient/Family are encouraged to report perceived risks to care and to ask questions if they do not understand what they are told or what they should do.
--- NOTE | 2025-04-13 15:51 | PM.CNCAR ---
Assessment and Plan Assessment and plan (1) PAF (paroxysmal atrial fibrillation): Code(s): I48.0 - Paroxysmal atrial fibrillation Status: Acute Assessment and Plan: Back in Sinus rhythm. [id number] 3. On Xarelto for hx of DVT already. To maintain sinus rhythm, start Sotalol 80 mg BID. Stop Atenolol. (2) Elevated troponin: Code(s): R79.89 - Other specified abnormal findings of blood chemistry Status: Acute Assessment and Plan: Probably related to demand ischemia from rapid atrial fib. Trend troponin. Obtain echo. (3) Hypertension: Code(s): I10 - Essential (primary) hypertension Status: Chronic Assessment and Plan: Low normal to stable now. Stop Atenolol. (4) AAA (abdominal aortic aneurysm): Code(s): I71.40 - Abdominal aortic aneurysm, without rupture, unspecified Status: Acute Assessment and Plan: Stable. (5) COPD, very severe: Code(s): J44.9 - Chronic obstructive pulmonary disease, unspecified Status: Chronic Assessment and Plan: On oxygen. History of Present Illness History of Present Illness Consult date/time: 04/13/25 15:51 Reason For Visit: atrial fibrillation with rapid ventricular respons Narrative: 74 yr old man who is my regular cardiology patient and is a patient of Dr. Tejeda presents to ER with sob. He has a history of hypertension, dyslipidemia, AAA, lung cancer with radiation, severe COPD, former smoking, history of left fem vein DVT at age 28. is at bedside. States he got up this morning and felt dizzy and sob and mild chest pain and his BP check at home was 89/60 mmHg. He came to ER and found to be in atrial flutter with RVR and he subsequently converted. He does not drink much water. . On oxygen at 2 l/m when active. He can walk 1 block with oxygen. Denies orthopnea, PND, edema, dizziness, palpitations. Cardiovascular Procedures Echo/MUGA:: 05/14/22 Echo: EF 55-60%, mild LVH, grade I diastolic dysfunction, trace TR, trivial pericardial effusion. Electrophysiology:: 12/14/24 EKG: Sinus rhythm, cannot r/o septal infarct, age indeterminate. Stress Tests:: 12/24/24 Lexiscan myoview: Negative. July 2024 CT Abd: 4.4 cm AAA infrarenal. Review of Systems Review of Systems: All systems reviewed & are unremarkable except as noted in HPI and below Constitutional: Constitutional: Reports as per HPI, Denies chills, Reports fatigue and Denies fever(s) Cardiovascular: Cardiovascular: Reports as per HPI, Reports chest pain and Denies irregular heart rhythm Respiratory: Respiratory: Reports as per HPI and Reports dyspnea Gastrointestinal: Gastrointestinal: Reports as per HPI and Denies abdominal pain Musculoskeletal: Musculoskeletal: Reports as per HPI Neurologic: Reports as per HPI, Reports dizziness and Denies syncope [facility] Past Medical History Medical History Pneumonia Hyperlipidemia Hypertension History of prostate cancer Thoracic aortic aneurysm without rupture History of DVT (deep vein thrombosis) L LE (chronic swelling in extremity) Sleep apnea COPD exacerbation Surgical History Surgical History H/O foot surgery H/O cataract extraction Family History Family History Mother Family history of lung cancer Father Acute myocardial infarction VTE (venous thromboembolism) Social History Social History Social History: The patient lives at home with his who is the durable power deputy attorney general for healthcare. If she cannot be durable power deputy attorney general his daughters will be. The patient has 2 children. 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 Patient is a former smoker. He denies any alcohol marijuana or illicit drugs. Code status full code Smoking packs per day: 3 Smoking cigarettes per day: 60.0 Years smoked: 40 Smoking pack-years: 120.00 Smoking status: Former smoker Second hand tobacco smoke exposure: No Alcohol intake: current Drinks per week: 14 Substance use: never Do You Feel Safe in your Home?: Yes Lack of Transportation: No Lack of Food: Never True Current Housing: I Have Housing Concerned About Future Housing: No Difficulty Paying Gas/Electric Bills: No Difficulty Paying for Meds: No Currently Unemployed: No Education: Decline to Answer Difficulty w/ Childcare or Family Care: No Spiritual care concerns: No Meds Home Medications and Allergies Home Medications ?Medication ?Instructions ?Recorded ?Confirmed ?Type albuterol sulfate 90 mcg/actuation 1 inhalation inhalation Q4H PRN 05/27/19 04/13/25 History aerosol inhaler (Ventolin HFA) Wheezing multivitamin (Multiple Vitamins 1 tablet PO DAILY 05/27/19 04/13/25 History tablet) rivaroxaban 20 mg tablet (Xarelto) 20 mg PO QPM 05/27/19 04/13/25 History pantoprazole 20 mg tablet,delayed 40 mg PO DAILY 07/03/22 04/13/25 History release (Protonix) guaifenesin 1,200 mg tablet, 1,200 mg PO BID 04/13/24 04/13/25 History extended release 12 hr (Mucinex) ipratropium 0.5 mg-albuterol 3 mg 3 ml inhalation Q6H Wheezing #180 04/15/24 04/13/25 Rx (2.5 mg base)/3 mL nebulization mL soln nebulizer and compressor (Easy Neb #1 ea 04/15/24 01/20/25 Rx Compressor Nebulizer) furosemide 40 mg tablet 40 mg PO DAILY PRN edema 08/10/24 04/13/25 History atenolol 50 mg tablet 50 mg PO DAILY 01/20/25 04/13/25 History Allergies Allergy/AdvReac Type Severity Reaction Status Date / Time No Known Allergies Allergy Verified 04/13/25 15:09 Vital Signs Vital Signs - 24 hr 04/13/25 11:37 04/13/25 11:37 04/13/25 11:50 Temperature 97.8 F Pulse Rate 155 H 159 H Respiratory Rate 17 17 Blood Pressure 99/85 L Pulse Oximetry 98 97 98 Oxygen Delivery Room Air Nasal Cannula Oxygen Flow Rate 2 04/13/25 12:00 04/13/25 12:02 04/13/25 12:04 Temperature Pulse Rate 148 H 161 H 149 H Respiratory Rate 15 14 14 Blood Pressure 77/67 L 83/71 L Pulse Oximetry 99 99 99 Oxygen Delivery Oxygen Flow Rate 04/13/25 12:13 04/13/25 12:15 04/13/25 12:17 Temperature Pulse Rate 158 H 154 H 156 H Respiratory Rate 22 H 20 Blood Pressure 83/71 L 68/49 L Pulse Oximetry 98 Oxygen Delivery Oxygen Flow Rate 04/13/25 12:19 04/13/25 12:27 04/13/25 12:29 Temperature Pulse Rate 150 H 121 H 95 Respiratory Rate 23 H Blood Pressure 86/76 L 86/76 L 86/76 L Pulse Oximetry Oxygen Delivery Oxygen Flow Rate 04/13/25 12:30 04/13/25 12:31 04/13/25 12:36 Temperature Pulse Rate 101 H 91 94 Respiratory Rate 16 21 H Blood Pressure 101/73 101/73 Pulse Oximetry 98 99 Oxygen Delivery Oxygen Flow Rate 04/13/25 12:45 04/13/25 12:46 04/13/25 13:00 Temperature Pulse Rate 92 93 91 Respiratory Rate 18 14 20 Blood Pressure 114/68 Pulse Oximetry 100 99 100 Oxygen Delivery Oxygen Flow Rate 04/13/25 13:01 04/13/25 13:15 04/13/25 13:16 Temperature Pulse Rate 89 91 90 Respiratory Rate 18 17 15 Blood Pressure 123/73 131/69 Pulse Oximetry 100 100 100 Oxygen Delivery Oxygen Flow Rate 04/13/25 13:30 04/13/25 13:31 04/13/25 14:31 Temperature Pulse Rate 92 86 92 Respiratory Rate 17 17 18 Blood Pressure 123/87 128/79 Pulse Oximetry 100 100 100 Oxygen Delivery Oxygen Flow Rate Exam Const: General: cooperative, healthy appearing and comfortable Resp: Auscultation: no crackles, no rales, no rhonchi, no wheezes and diminished lung sounds Cardio: Rate: regular rate Rhythm: regular rhythm Heart sounds: no murmurs Peripheral pulses: dorsalis pedis present GI: GI Palp: No abdominal tenderness and Yes Soft to palpation Neuro: General: oriented to person, oriented to place and oriented to time Extrem: Right lower extremity: no edema Left lower extremity: no edema Results Labs and Meds 04/13/25 11:55 04/13/25 11:55 Lab results: Cardiac Enzymes 04/13/25 Range/Units 11:55 AST 35 (17-59) U/L Troponin I 0.083 H* (0.000-0.034) ng/mL Coagulation 04/13/25 Range/Units 11:55 PT 16.9 H (11.1-14.7) Seconds APTT 28.4 (22.3-36.8) Seconds CBC 04/13/25 Range/Units 11:55 WBC 9.1 (4.5-10.0) K/mm3 RBC 5.30 (4.6-6.20) M/mm3 Hgb 17.2 (14.0-18.0) g/dL Hct 51.7 (42.0-52.0) % Plt Count 170 (150-375) k/mm3 Lymph # (Auto) 1.85 (0.9-3.2) K/mm3 [place] # (Auto) 1.0 H (0.1-0.6) K/mm3 Eos # (Auto) 0.0 (0-0.3) K/mm3 Baso # (Auto) 0.0 (0.0-0.1) K/mm3 Comprehensive Metabolic Panel 04/13/25 Range/Units 11:55 Sodium 137 (137-145) mmol/L Potassium 4.5 (3.4-5.0) mmol/L Chloride 101 (98-107) mmol/L Carbon Dioxide 27 (22-30) mmol/L BUN 11 (9-20) mg/dL Creatinine 0.74 (0.7-1.3) mg/dL Glucose 113 H (65-110) mg/dL Calcium 9.2 (8.4-10.2) mg/dL AST 35 (17-59) U/L ALT 17 (6-50) U/L Alkaline Phosphatase 84 (38-126) U/L Total Protein 6.6 (6.3-8.2) g/dL Albumin 4.0 (3.5-5.1) g/dL Intake and Output 04/12/25 04/13/25 04/13/25 23:59 07:59 15:59 Intake Total 1105 Balance 1105 Intake: IV 1105 Amiodarone 150 mg/D5w 100 ml 100 150 mg In 100 ml @ 15 MG/MIN 600 mls/hr IV CONT .Q10M ONE Rx #:[id number] Amiodarone 360 mg/D5w 200 ml 5 360 mg In 200 ml @ 1 MG/MIN 33. 333 mls/hr IV CONT .Q6H ONE Rx# :[id number] Sodium Chloride 0.9% IV 1,000 1000 ml @ 999 mls/hr IV CONT .Q1H1M STA Rx#:[id number] Patient Weight 04/13/25 23:59 Weight 65.8 kg
--- NOTE | 2025-04-13 18:06 | PM.IMHP ---
H&P: HPI History of Present Illness Date/Time: 04/13/25 18:06 Chief Complaint: Shortness of breath Narrative: 74-year-old male past medical history of hyperlipidemia, HTN, DVT, former smoker, severe COPD, stable AAA, prostate cancer s/p radiation, NSCLC s/p radiation presents to the emergency department on 04/13/2025 with complaints of dizziness and increased shortness of breath from his baseline. Denies any radiating pain, fever, cough. He describes the pain in his chest as more of a ?full? feeling. Has severe COPD and wears 2 L O2 at baseline. Denies feeling ill or having chest pain prior to this morning. Patient checked his blood pressure at home which was 89/60. Follows Dr. Aguilera outpatient for monitoring of his AAA. In the ED, patient was found to be in AFib RVR. 150 mg amiodarone bolus given in preparation to start an amiodarone drip. EKG post amnio bolus reads sinus rhythm with frequent PVCs with occasional supraventricular premature complexes. Feeling of fullness in his chest resolved. Of note, patient was diagnosed with left upper lobe [id number] lung cancer in October 2023. SBRT 50Gy/5Fx completed 12/17/23. New right lower lobe lesion discovered during a PET scan in April of 2024 which was being monitored. CT chest January 2025 shows stable disease. Patient is scheduled for follow-up imaging in April 2025. Initial vital signs 99/85, HR 155, respirations 17, afebrile and 98% on room air. Labs only significant for initial troponin 0.083. Chest x-ray with no acute cardiopulmonary disease. Initial EKG read AFib with RVR. Review of Systems Review of Systems: All systems reviewed & are unremarkable except as noted in HPI and below PMFSH Past Medical History Medical History (Updated 04/13/25 @ 23:45 by Kaelyn Franco APRN) CVID (common variable immunodeficiency) BMI 22.0-22.9, adult Pneumonia Hyperlipidemia Hypertension History of prostate cancer Thoracic aortic aneurysm without rupture History of DVT (deep vein thrombosis) L LE (chronic swelling in extremity) Sleep apnea COPD exacerbation Surgical History Surgical History H/O foot surgery H/O cataract extraction Family History Family History Mother Family history of lung cancer Father Acute myocardial infarction VTE (venous thromboembolism) Social History Social History Social History: The patient lives at home with his who is the durable power estate planning attorney for healthcare. If she cannot be durable power estate planning attorney his daughters will be. The patient has 2 children. 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 Patient is a former smoker. He denies any alcohol marijuana or illicit drugs. Code status full code Smoking packs per day: 3 Smoking cigarettes per day: 60.0 Years smoked: 40 Smoking pack-years: 120.00 Smoking status: Former smoker Second hand tobacco smoke exposure: No Alcohol intake: current Drinks per week: 14 Substance use: never Do You Feel Safe in your Home?: Yes Lack of Transportation: No Lack of Food: Never True Current Housing: I Have Housing Concerned About Future Housing: No Difficulty Paying Gas/Electric Bills: No Difficulty Paying for Meds: No Currently Unemployed: No Education: Decline to Answer Difficulty w/ Childcare or Family Care: No Spiritual care concerns: No Meds Home Medications and Allergies Home Medications ?Medication ?Instructions ?Recorded ?Confirmed ?Type albuterol sulfate 90 mcg/actuation 1 inhalation inhalation Q4H PRN 05/27/19 04/13/25 History aerosol inhaler (Ventolin HFA) Wheezing multivitamin (Multiple Vitamins 1 tablet PO DAILY 05/27/19 04/13/25 History tablet) rivaroxaban 20 mg tablet (Xarelto) 20 mg PO QPM 05/27/19 04/13/25 History pantoprazole 20 mg tablet,delayed 40 mg PO DAILY 07/03/22 04/13/25 History release (Protonix) guaifenesin 1,200 mg tablet, 1,200 mg PO BID 04/13/24 04/13/25 History extended release 12 hr (Mucinex) ipratropium 0.5 mg-albuterol 3 mg 3 ml inhalation Q6H Wheezing #180 04/15/24 04/13/25 Rx (2.5 mg base)/3 mL nebulization mL soln nebulizer and compressor (Easy Neb #1 ea 04/15/24 04/13/25 Rx Compressor Nebulizer) furosemide 40 mg tablet 40 mg PO DAILY PRN edema 08/10/24 04/13/25 History atenolol 50 mg tablet 50 mg PO DAILY 01/20/25 04/13/25 History Allergies Allergy/AdvReac Type Severity Reaction Status Date / Time No Known Allergies Allergy Verified 04/13/25 15:09 Vital Signs Vital Signs - 24 hr 04/13/25 11:37 04/13/25 11:37 04/13/25 11:50 Temperature 97.8 F Pulse Rate 155 H 159 H Respiratory Rate 17 17 Blood Pressure 99/85 L Pulse Oximetry 98 97 98 Oxygen Delivery Room Air Nasal Cannula Oxygen Flow Rate 2 04/13/25 12:00 04/13/25 12:02 04/13/25 12:04 Temperature Pulse Rate 148 H 161 H 149 H Respiratory Rate 15 14 14 Blood Pressure 77/67 L 83/71 L Pulse Oximetry 99 99 99 Oxygen Delivery Oxygen Flow Rate 04/13/25 12:13 04/13/25 12:15 04/13/25 12:17 Temperature Pulse Rate 158 H 154 H 156 H Respiratory Rate 22 H 20 Blood Pressure 83/71 L 68/49 L Pulse Oximetry 98 Oxygen Delivery Oxygen Flow Rate 04/13/25 12:19 04/13/25 12:27 04/13/25 12:29 Temperature Pulse Rate 150 H 121 H 95 Respiratory Rate 23 H Blood Pressure 86/76 L 86/76 L 86/76 L Pulse Oximetry Oxygen Delivery Oxygen Flow Rate 04/13/25 12:30 04/13/25 12:31 04/13/25 12:36 Temperature Pulse Rate 101 H 91 94 Respiratory Rate 16 21 H Blood Pressure 101/73 101/73 Pulse Oximetry 98 99 Oxygen Delivery Oxygen Flow Rate 04/13/25 12:45 04/13/25 12:46 04/13/25 13:00 Temperature Pulse Rate 92 93 91 Respiratory Rate 18 14 20 Blood Pressure 114/68 Pulse Oximetry 100 99 100 Oxygen Delivery Oxygen Flow Rate 04/13/25 13:01 04/13/25 13:15 04/13/25 13:16 Temperature Pulse Rate 89 91 90 Respiratory Rate 18 17 15 Blood Pressure 123/73 131/69 Pulse Oximetry 100 100 100 Oxygen Delivery Oxygen Flow Rate 04/13/25 13:30 04/13/25 13:31 04/13/25 14:31 Temperature Pulse Rate 92 86 92 Respiratory Rate 17 17 18 Blood Pressure 123/87 128/79 Pulse Oximetry 100 100 100 Oxygen Delivery Oxygen Flow Rate Exam Narrative: GENERAL: Chronically ill-appearing. Frail HEAD: Normocephalic, atraumatic. EYES: PERRLA. Conjunctivae clear. NOSE: Normal no drainage. THROAT: Pharynx clear, no exudate. NECK: Trachea midline. No adenopathy, no masses. RESPIRATORY: Airway patent, respirations nonlabored. Diminished air movement bilaterally. No wheezes CARDIOVASCULAR: Regular rate and rhythm GASTROINTESTINAL: Abdomen is soft and nontender. No organomegaly. Bowel sounds normal in all quadrants. GENITOURINARY: Defer MUSCULOSKELETAL: Moves all extremities. No gross deformities. No edema SKIN: Warm, dry, normal color. NEURO: A&O X4. Speech clear PSYCHIATRIC: Normal interaction H&P: Results Labs Labs: Short CBC 04/13/25 Range/Units 11:55 WBC 9.1 (4.5-10.0) K/mm3 Hgb 17.2 (14.0-18.0) g/dL Hct 51.7 (42.0-52.0) % Plt Count 170 (150-375) k/mm3 BMP 04/13/25 11:55 Sodium 137 Potassium 4.5 Chloride 101 Carbon Dioxide 27 BUN 11 Creatinine 0.74 Glucose 113 H Calcium 9.2 Cardiac Enzymes 04/13/25 Range/Units 11:55 Troponin I 0.083 H* (0.000-0.034) ng/mL Liver Function 04/13/25 Range/Units 11:55 Total Bilirubin 1.0 (0.2-1.3) mg/dL AST 35 (17-59) U/L ALT 17 (6-50) U/L Alkaline Phosphatase 84 (38-126) U/L Albumin 4.0 (3.5-5.1) g/dL Assessment and Plan Assessment and plan (1) Atrial fibrillation with RVR: Code(s): I48.91 - Unspecified atrial fibrillation Status: Acute Assessment and Plan: Presents with with complaints of dizziness and increased shortness of breath from his baseline. Home blood pressure reading 89/60. Patient described his chest pain as a ?full? feeling. Initial troponin 0.083. Initial EKG read AFib with RVR. EKG post amnio bolus reads sinus rhythm with frequent PVCs with occasional supraventricular premature complexes. -cardiology consult; start sotalol 80 mg q.12 this evening. Discontinue atenolol -324 mg aspirin in ED -echo ordered (2) Elevated troponin: Code(s): R79.89 - Other specified abnormal findings of blood chemistry Status: Acute Assessment and Plan: Troponin 0.083--> 0.289--> pending. Patient no longer has ?chest pain? after converting to sinus rhythm. No ischemia on serial EKGs. Elevated troponin likely due to demand ischemia. -cardiology following (3) COPD, very severe: Code(s): J44.9 - Chronic obstructive pulmonary disease, unspecified Status: Chronic Assessment and Plan: Severe emphysema documented on previous scans. Home O2 dependent at 2 L. Patient currently at baseline for his COPD. -follows pulmonology outpatient -continue home DuoNeb q.6, Mucinex 1200 mg b.i.d. (4) Non-small cell lung cancer: Code(s): C34.90 - Malignant neoplasm of unspecified part of unspecified bronchus or lung Status: Chronic Assessment and Plan: Follows with Dr. Nolasco. Diagnosed with left upper lobe [id number] lung cancer in October 2023. SBRT 50Gy/5Fx completed 12/17/23. New right lower lobe lesion under surveillance. -follow-up imaging scheduled for next month (5) History of DVT (deep vein thrombosis): Code(s): Z86.718 - Personal history of other venous thrombosis and embolism Status: Chronic Assessment and Plan: Continue home Xarelto Plan Diet: Heart healthy GI prophylaxis: Pantoprazole DVT prophylaxis: Xarelto lines/drains: PIV Fluids: NA Code status: Full Quality VTE Prophylaxis VTE prophylaxis: pharmacologic ordered Hospitalist MIPS Advance Care Plan I have confirmed that the patient's Advanced Care Plan is present, code status is documented, or surrogate decision maker is listed in patient medical record.: Yes Medication Reconciliation I have utilized all available resources to obtain, update and review the patients current medications (includes all prescriptions, OTC, herbals, cannabis, and nutritional supplements).: Yes
[2025-04-13] MEDS: RIVAROXABAN 20 MG TABLET PO (20:32)
[2025-04-13] MEDS: SOTALOL HCL 80 MG TABLET PO (20:32)
[2025-04-13 20:49] LABS: Troponin I 0.289 ng/mL (0.000-0.034)
[2025-04-13] MEDS: guaiFENesin 12 HR 600 MG TABCR 1200 MG PO (21:33)
--- NOTE | 2025-04-13 22:34 | ECG_ITS ---
Test Date: 2025-04-13 22:38:21 Measurements Intervals Lynd Rate: 72 P: 75 SD: 144 QRS: 4 QRSD: 79 T: 64 QT: 426 QTc: 469 Interpretive Statements SINUS RHYTHM WITH OCCASIONAL VENTRICULAR PREMATURE COMPLEXES BORDERLINE ECG Compared to ECG 04/13/2025 12:34:02 No significant changes Electronically Signed On 04-14-2025 07:34:50 BAND SHOVER by Emeka Alcala M.D.
--- NOTE | 2025-04-13 23:00 | PCRCNOTE ---
Window of time for administration has passed. See next scheduled administration.
[2025-04-13 23:54] LABS: Troponin I 0.239 ng/mL (0.000-0.034)
[2025-04-14] VITALS (24 sets, daily range): BP systolic 115–158; BP diastolic 81–93; PULSE 65–82; RESP 16–20; TEMP 36.1–36.8; O2SAT 95–100
--- NOTE | 2025-04-14 | ECHO_ITS ---
Patient Info Name: Donta Collins Age: 74 years : 1950 Gender: Male Ht: 70 in Wt: 139 lbs BSA: 1.76 m2 HR: 68 bpm BP: 143 / 92 mmHg Heart Rhythm: Atrial Fibrillation Technical Quality: Good Exam Date: 04/14/2025 10:11 AM Patient Status: I Admit Date: 04/14/2025 Exam Type: CA echo dop color flow w con Complete two-dimensional, color flow and Doppler transthoracic echocardiogram is performed with contrast to opacify the left ventricle and to improve the deliniation of the left ventricle endocardial borders. Staff Referring Physician: Linda Fields [facility] Grain Sampler: Kiersten Kamara Attending Provider: Tucker Hernandez Contrast/Agitated Saline Contrast/Ag. Saline: Definity Amount: 2.00 ml Summary 1. Normal left and right ventricular size and systolic function. 2. Mild aortic regurgitation. 3. Atrial fibrillation. Left Ventricle Left ventricular chamber dimension is normal. Left ventricular systolic function is normal, estimated at 60-65. The left ventricular diastolic function is indeterminate. Right Ventricle Right ventricular chamber dimension is normal. Left Atria Left atrial chamber dimension is normal. Right Atria Right atrial chamber dimension is normal. Aortic Valve The aortic valve is trileaflet. There is mild aortic valve sclerosis. There is mild aortic valve regurgitation. Pulmonic Valve The pulmonic valve is not well visualized. Mitral Valve The mitral valve has normal leaflets. Tricuspid Valve The tricuspid valve leaflets are normal. Pericardium/Pleural The pericardium appears normal. Aorta The aortic root size at the sinus of Valsalva is normal. Left Ventricular Outflow Tract Name Value Normal LVOT 2D LVOT Diameter 2.0 cm LVOT Doppler LVOT Peak Velocity 97 cm/s LVOT Peak Gradient 4 mmHg LVOT Mean Gradient 2 mmHg LVOT VTI 24 cm LVOT Stroke Volume 72 ml LVOT CO 4.9 l/min LVOT CI 2.8 l/min/m2 Pulmonic Valve Name Value Normal RVOT Doppler RVOT Peak Velocity 59 cm/s RVOT Peak Gradient 1 mmHg PV Doppler PV Peak Velocity 113 cm/s PV Peak Gradient 5 mmHg Mitral Valve Name Value Normal MV Diastolic Function MV E Peak Velocity 70 cm/s MV A Peak Velocity 54 cm/s MV E/A 1.3 MV Decel Time (PW) 158 ms MV Annular TDI MV E/e' (Septal) 8.2 MV E/e' (Lateral) 6.3 MV E/e' (Average) 7.3 Aortic Valve Name Value Normal AV Doppler AV Peak Velocity 172 cm/s AV Peak Gradient 11 mmHg AV Area (Cont Eq Harpreet) 1.7 cm2 AV DI (Harpreet) 0.56 AV Regurgitation 2D LVOT Area 3.0 cm2 Ventricles Name Value Normal LV Dimensions 2D/MM IVS Diastolic Thickness (2D) 0.8 cm 0.6-1.0 LVID Diastole (2D) 3.5 cm 4.2-5.8 LVIW Diastolic Thickness (2D) 0.9 cm 0.6-1.0 LVID Systole (2D) 2.3 cm 2.5-4.0 LVIW Systolic Thickness (MM) 2.1 cm LVOT Diameter 2.0 cm LV Mass (2D Cubed) 79.87 g 88.00-224.00 LV Mass Index (2D Cubed) 45 g/m2 49-115 Relative Wall Thickness (2D) 0.50 <=0.42 LV Fractional Shortening/Ejection Fraction 2D/MM LV Fractional Shortening (2D) 34 % 25-43 LV EF (2D Teichholz) 64 % LV Diastolic Volume (4C MOD) 103 ml LV EF (4C MOD) 64 % LV Diastolic Volume (2C MOD) 79 ml LV EF (2C MOD) 58 % LV Diastolic Volume (BP MOD) 98 ml 62-150 LV Diastolic Volume Index (BP MOD) 56 ml/m2 34-74 LV Systolic Volume (BP MOD) 36 ml 21-61 LV Systolic Volume Index (BP MOD) 21 ml/m2 11-31 LV EF (BP MOD) 63 % 52-72 LV Diastolic Length (4C) 8.8 cm LV Systolic Length (4C) 6.5 cm LV Stroke Volume (4C MOD) 66 ml Atria Name Value Normal LA Dimensions LA Volume (4C A-L) 33 ml LA Volume (BP A-L) 35 ml RA Dimensions RA Systolic Major [place] Length (4C) 4.7 cm 2.1-2.7 RA Area (4C) 15.1 cm2 <=18.0 Report Signatures
[2025-04-14] MEDS: IPRATROPIUM 0.5 MG/ALBUTEROL SULFATE 2.5 MG (BASE) AMPUL.NEB 3 ML INHALATION ×4 (02:27→20:29)
[2025-04-14 04:06] LABS: Hematocrit 45.4 % (42.0-52.0); Hemoglobin 14.7 g/dL (14.0-18.0); Immature Granulocyte Percent A 0.2 % (0-0.5); Immature Platelet Fraction Pct 6.9 % (0.9-11.2); Lymphocytes Absolute Auto 1.37 K/mm3 (0.9-3.2); Mean Corpuscular HGB Conc 32.4 g/dl (32-36); Mean Corpuscular Hemoglobin 31.7 pg (26-34); Mean Corpuscular Volume 97.8 fl (80-100); Nucleated Red Blood Cells Absolute Auto 0.000 K/mm3 (0.0-0.012); Nucleated Red Blood Cells Perc 0.0 % (0.0-0.2); Platelet Count Result 118 k/mm3 (150-375); Red Blood Count 4.64 M/mm3 (4.6-6.20); White Blood Count 6.1 K/mm3 (4.5-10.0)
[2025-04-14 04:27] LABS: Anion Gap 6 mmol/L (4-12); Blood Urea Nitrogen 10 mg/dL (9-20); Calcium 8.7 mg/dL (8.4-10.2); Carbon Dioxide 27 mmol/L (22-30); Chloride 103 mmol/L (98-107); Estimated CRCL calculation 81 ml/min; Estimated Glomerular Filt Rate > 60; Glucose 87 mg/dL (65-110); Magnesium 1.9 mg/dL (1.6-2.3); Potassium 3.6 mmol/L (3.4-5.0); Sodium 136 mmol/L (137-145)
[2025-04-14 04:57] LABS: Add Urine Microscopic? NO; Appearance Urine Clear (Clear); Glucose Urine UA Negative (Negative); Leukocyte Esterase Ur Negative LEU/UL (Negative); Nitrate Urine Negative (Negative); Specific Grav Ur 1.019 (1.001-1.035)
[2025-04-14] MEDS: MAGNESIUM SULF 1 GM/D5W 100 ML 1 GM/100 ML BAG IVPB (08:12)
--- NOTE | 2025-04-14 08:13 | P.PNIM_ITS ---
Progress Note: A&P Assessment and Plan (1) Atrial fibrillation with RVR: Code(s): I48.91 - Unspecified atrial fibrillation Status: Acute Assessment and Plan: Patient was evaluated by Cardiology. Patient converted with amiodarone bolus Cardiology has started sotalol 80 mg q.12 this evening. Add in all discontinue Patient was given aspirin in the ER. Patient is on be on Xarelto anticoagulation Echo ordered and pending Telemetry monitoring Electrolyte replacement (2) Elevated troponin: Code(s): R79.89 - Other specified abnormal findings of blood chemistry Status: Acute Assessment and Plan: Mild elevation in troponin likely secondary to AFib with RVR. Patient denies any chest pain. EKG reviewed Further evaluation management per Cardiology (3) COPD, very severe: Code(s): J44.9 - Chronic obstructive pulmonary disease, unspecified Status: Chronic Assessment and Plan: Severe emphysema documented on previous scans. Home O2 dependent at 2 L. Patient currently at baseline for his COPD. -follows pulmonology outpatient -continue home DuoNeb q.6 but change to p.r.n., Mucinex 1200 mg b.i.d. (4) Non-small cell lung cancer: Code(s): C34.90 - Malignant neoplasm of unspecified part of unspecified bronchus or lung Status: Chronic Assessment and Plan: Follows with Dr. Nolasco. Diagnosed with left upper lobe [id number] lung cancer in October 2023. SBRT 50Gy/5Fx completed 12/17/23. New right lower lobe lesion under surveillance. -follow-up imaging scheduled for next month (5) History of DVT (deep vein thrombosis): Code(s): Z86.718 - Personal history of other venous thrombosis and embolism Status: Chronic Assessment and Plan: Continue home Xarelto (6) Electrolyte abnormality: Code(s): E87.8 - Other disorders of electrolyte and fluid balance, not elsewhere classified Status: Acute Assessment and Plan: Replace low potassium and magnesium Plan Diet: Heart healthy GI prophylaxis: Pantoprazole DVT prophylaxis: Xarelto lines/drains: PIV Fluids: NA Code status: Full Subjective Date/time seen: 04/14/25 Patient states he feels better and denies any new complaints. He is wearing 2 L oxygen which is his home oxygen rate. His vital signs stable. He has converted to sinus rhythm. Patient denies fever, chest pain, shortness of breath, cough, nausea vomiting, abdominal pain,, diarrhea, headache or constipation. All other systems were reviewed and were negative Review of Systems Review of Systems: All systems reviewed & are unremarkable except as noted in HPI and below (HPI) Exam Narrative: GENERAL: Chronically ill-appearing. Frail HEAD: Normocephalic, atraumatic. EYES: PERRLA. Conjunctivae clear. NOSE: Normal no drainage. THROAT: Pharynx clear, no exudate. NECK: Trachea midline. No adenopathy, no masses. RESPIRATORY: Airway patent, respirations nonlabored. Diminished air movement bilaterally. No wheezes CARDIOVASCULAR: Regular rate and rhythm GASTROINTESTINAL: Abdomen is soft and nontender. No organomegaly. Bowel sounds normal in all quadrants. GENITOURINARY: Defer MUSCULOSKELETAL: Moves all extremities. No gross deformities. No edema SKIN: Warm, dry, normal color. Small lipoma on his back on the left side close to shoulder blade NEURO: A&O X4. Speech clear PSYCHIATRIC: Normal interaction Objective Data Vital Signs Vital Signs: Vital Signs - 24 hr 04/13/25 11:37 04/13/25 11:37 04/13/25 11:50 Temperature 36.6 C Pulse Rate 155 H 159 H Respiratory Rate 17 17 Blood Pressure 99/85 L Pulse Oximetry 98 97 98 Oxygen Delivery Room Air Nasal Cannula Oxygen Flow Rate 2 04/13/25 12:00 04/13/25 12:02 04/13/25 12:04 Temperature Pulse Rate 148 H 161 H 149 H Respiratory Rate 15 14 14 Blood Pressure 77/67 L 83/71 L Pulse Oximetry 99 99 99 Oxygen Delivery Oxygen Flow Rate 04/13/25 12:13 04/13/25 12:15 04/13/25 12:17 Temperature Pulse Rate 158 H 154 H 156 H Respiratory Rate 22 H 20 Blood Pressure 83/71 L 68/49 L Pulse Oximetry 98 Oxygen Delivery Oxygen Flow Rate 04/13/25 12:19 04/13/25 12:27 04/13/25 12:29 Temperature Pulse Rate 150 H 121 H 95 Respiratory Rate 23 H Blood Pressure 86/76 L 86/76 L 86/76 L Pulse Oximetry Oxygen Delivery Oxygen Flow Rate 04/13/25 12:30 04/13/25 12:31 04/13/25 12:36 Temperature Pulse Rate 101 H 91 94 Respiratory Rate 16 21 H Blood Pressure 101/73 101/73 Pulse Oximetry 98 99 Oxygen Delivery Oxygen Flow Rate 04/13/25 12:45 04/13/25 12:46 04/13/25 13:00 Temperature Pulse Rate 92 93 91 Respiratory Rate 18 14 20 Blood Pressure 114/68 Pulse Oximetry 100 99 100 Oxygen Delivery Oxygen Flow Rate 04/13/25 13:01 04/13/25 13:15 04/13/25 13:16 Temperature Pulse Rate 89 91 90 Respiratory Rate 18 17 15 Blood Pressure 123/73 131/69 Pulse Oximetry 100 100 100 Oxygen Delivery Oxygen Flow Rate 04/13/25 13:30 04/13/25 13:31 04/13/25 14:31 Temperature Pulse Rate 92 86 92 Respiratory Rate 17 17 18 Blood Pressure 123/87 128/79 Pulse Oximetry 100 100 100 Oxygen Delivery Oxygen Flow Rate 04/13/25 16:00 04/13/25 16:00 04/13/25 16:00 Temperature 36.4 C Pulse Rate 85 86 Respiratory Rate 14 Blood Pressure 93/66 L Pulse Oximetry 100 98 Oxygen Delivery Nasal Cannula Oxygen Flow Rate 2 04/13/25 18:00 04/13/25 20:00 04/13/25 20:00 Temperature 36.7 C Pulse Rate 91 89 Respiratory Rate 13 Blood Pressure 143/96 H Pulse Oximetry 97 98 Oxygen Delivery Nasal Cannula Oxygen Flow Rate 2 04/13/25 20:00 04/13/25 20:32 04/13/25 22:00 Temperature Pulse Rate 89 82 78 Respiratory Rate Blood Pressure Pulse Oximetry Oxygen Delivery Oxygen Flow Rate 04/14/25 00:00 04/14/25 00:00 04/14/25 00:00 Temperature 36.8 C Pulse Rate 73 76 Respiratory Rate 17 Blood Pressure 152/87 H Pulse Oximetry 100 100 Oxygen Delivery Nasal Cannula Oxygen Flow Rate 2 04/14/25 02:00 04/14/25 02:28 04/14/25 02:29 Temperature Pulse Rate 74 74 75 Respiratory Rate 16 Blood Pressure Pulse Oximetry 95 Oxygen Delivery Nasal Cannula Oxygen Flow Rate 2 04/14/25 02:35 04/14/25 04:00 04/14/25 04:00 Temperature 36.6 C Pulse Rate 73 73 Respiratory Rate 16 18 Blood Pressure 143/92 H Pulse Oximetry 98 98 Oxygen Delivery Nasal Cannula Oxygen Flow Rate 2 04/14/25 04:00 04/14/25 06:00 04/14/25 07:57 Temperature 36.7 C Pulse Rate 73 71 82 Respiratory Rate 17 Blood Pressure 115/93 H Pulse Oximetry 97 Oxygen Delivery Oxygen Flow Rate 04/14/25 08:00 04/14/25 08:00 Temperature Pulse Rate 82 82 Respiratory Rate 17 Blood Pressure Pulse Oximetry 97 Oxygen Delivery Nasal Cannula Oxygen Flow Rate 2 Intake/Output Intake/Output: Intake & Output 04/11/25 04/12/25 04/13/25 04/14/25 23:59 23:59 23:59 23:59 Intake Total 1345 200 Output Total 100 Balance 1345 100 Meds/Results Medications: Active Medications Generic Name Dose Route Start Last Admin Trade Name Freq PRN Reason Stop Dose Admin Acetaminophen 650 mg 04/13/25 12:56 Acetaminophen 325 Mg Tablet PO Q4H PRN Mild Pain (1-3) or Fever Albuterol/Ipratropium 3 ml 04/14/25 07:52 Ipratropium 0.5 Mg/Albuterol Sulfate 2.5 Mg (Base) Ampul.Neb 3 Ml INHALATION Q6HRT PRN Wheezing Aspirin 81 mg 04/14/25 08:00 Aspirin 81 Mg Chewable Tablet PO DAILY@0800 JOSE Furosemide 40 mg 04/13/25 21:02 Furosemide 40 Mg Tablet PO DAILY PRN Edema Guaifenesin 1,200 mg 04/13/25 21:05 04/13/25 21:33 Guaifenesin 12 Hr 600 Mg Tabcr PO 1,200 mg Q12HR JOSE Administration Magnesium Sulfate/Dextrose 1 gm in 100 mls @ 100 mls/hr 04/14/25 08:00 04/14/25 08:12 Magnesium Sulf 1 Gm/D5w 100 Ml IVPB 04/14/25 08:59 100 mls/hr ONCE ONE Administration Multivitamins Therapeutic 1 tablet 04/14/25 09:00 Multivitamins Therapeutic Tab (*Bkc) PO DAILY JOSE Ondansetron HCl 4 mg 04/13/25 12:56 Ondansetron Inj 4 Mg/2 Ml Vial IV PUSH Q4H PRN Nausea Pantoprazole Sodium 40 mg 04/14/25 09:00 Pantoprazole 40 Mg Tablet PO DAILY JOSE Perflutren Lipid Microsphere 0 ml 04/13/25 15:41 Perflutren Lipid Microspheres 1.5 Ml Vial Diluted To 10 Ml Total Volume IV PUSH 11/28/25 15:41 ONCE PRN adequate visualization Protocol Rivaroxaban 20 mg 04/13/25 20:30 04/13/25 20:32 Rivaroxaban 20 Mg Tablet PO 20 mg HS JOSE Administration Sotalol HCl 80 mg 04/13/25 21:00 04/13/25 20:32 Sotalol Hcl 80 Mg Tablet PO 80 mg Q12HR JOSE Administration Radiology Results: ITS Impressions Chest X-Ray 04/13/25 12:36 Impression: 1: No acute cardiopulmonary disease. Labs Labs: Laboratory Results - last 24 hr 04/13/25 04/13/25 04/13/25 11:55 20:06 23:06 WBC 9.1 RBC 5.30 Hgb 17.2 Hct 51.7 MCV 97.5 MCH 32.5 MCHC 33.3 RDW 13.2 Plt Count 170 MPV 11.1 H Immature Gran % (Auto) 0.3 Neut % (Auto) 67.8 Lymph % (Auto) 20.4 [place] % (Auto) 11.0 H Eos % (Auto) 0.2 Baso % (Auto) 0.3 Lymph # (Auto) 1.85 [place] # (Auto) 1.0 H Eos # (Auto) 0.0 Baso # (Auto) 0.0 Abs Immat Gran (auto) 0.03 Absolute Neuts (auto) 6.1 Absolute Nucleated RBC 0.000 Nucleated RBC % 0.0 % Immature Plt Fraction PT 16.9 H INR 1.4 APTT 28.4 Sodium 137 Potassium 4.5 Chloride 101 Carbon Dioxide 27 Anion Gap 9 BUN 11 Creatinine 0.74 Estim Creat Clear Calc 68 Estimated GFR > 60 Glucose 113 H Calcium 9.2 Magnesium 1.6 Total Bilirubin 1.0 AST 35 ALT 17 Alkaline Phosphatase 84 Troponin I 0.083 H* 0.289 H* 0.239 H* Total Protein 6.6 Albumin 4.0 Lipase 141 Urine Color Urine Appearance Urine pH Ur Specific [place] Urine Protein Urine Glucose (UA) Urine Ketones Ur Blood (Man) Urine Nitrate Urine Bilirubin Urine Urobilinogen Leukocyte Esterase Rfl 04/14/25 04/14/25 03:29 03:34 WBC 6.1 RBC 4.64 Hgb 14.7 Hct 45.4 MCV 97.8 MCH 31.7 MCHC 32.4 RDW 13.0 Plt Count 118 L MPV 11.0 H Immature Gran % (Auto) 0.2 Neut % (Auto) 61.1 Lymph % (Auto) 22.5 [place] % (Auto) 13.6 H Eos % (Auto) 2.1 Baso % (Auto) 0.5 Lymph # (Auto) 1.37 [place] # (Auto) 0.8 H Eos # (Auto) 0.1 Baso # (Auto) 0.0 Abs Immat Gran (auto) 0.01 Absolute Neuts (auto) 3.7 Absolute Nucleated RBC 0.000 Nucleated RBC % 0.0 % Immature Plt Fraction 6.9 PT INR APTT Sodium 136 L Potassium 3.6 Chloride 103 Carbon Dioxide 27 Anion Gap 6 BUN 10 Creatinine 0.59 L Estim Creat Clear Calc 81 Estimated GFR > 60 Glucose 87 Calcium 8.7 Magnesium 1.9 Total Bilirubin AST ALT Alkaline Phosphatase Troponin I Total Protein Albumin Lipase Urine Color Yellow Urine Appearance Clear Urine pH 5.5 Ur Specific [place] 1.019 Urine Protein Negative Urine Glucose (UA) Negative Urine Ketones 2+ H Ur Blood (Man) Negative Urine Nitrate Negative Urine Bilirubin Negative Urine Urobilinogen 0.2 Leukocyte Esterase Rfl Negative Quality VTE Prophylaxis VTE prophylaxis: pharmacologic ordered
[2025-04-14] MEDS: ASPIRIN 81 MG CHEWABLE TABLET PO (08:59)
[2025-04-14] MEDS: MULTIVITAMINS THERAPEUTIC TAB (*BKC) 1 TABLET PO (09:00)
[2025-04-14] MEDS: guaiFENesin 12 HR 600 MG TABCR 1200 MG PO ×2 (09:00→20:00)
[2025-04-14] MEDS: PANTOPRAZOLE 40 MG TABLET PO (09:00)
[2025-04-14] MEDS: POTASSIUM CHLORIDE 20 MEQ ER TABLET 40 MEQ PO (09:00)
--- NOTE | 2025-04-14 09:01 | P.PNCA_ITS ---
Progress Note: A&P Assessment and Plan (1) PAF (paroxysmal atrial fibrillation): Code(s): I48.0 - Paroxysmal atrial fibrillation Status: Acute Assessment and Plan: Back in Sinus rhythm. [id number] 3. On Xarelto for hx of DVT already. To maintain sinus rhythm, start 04/13/25 Sotalol 80 mg BID. Stopped Atenolol. Anticipate 1 more night stay and d/c home tomorrow after 4th dose of Sotalol if OK. (2) Elevated troponin: Code(s): R79.89 - Other specified abnormal findings of blood chemistry Status: Acute Assessment and Plan: Probably related to demand ischemia from rapid atrial fib. Troponin peaked at 0.28. Obtain echo. (3) Hypertension: Code(s): I10 - Essential (primary) hypertension Status: Chronic Assessment and Plan: Stable. (4) AAA (abdominal aortic aneurysm): Code(s): I71.40 - Abdominal aortic aneurysm, without rupture, unspecified Status: Acute Assessment and Plan: Stable. (5) COPD, very severe: Code(s): J44.9 - Chronic obstructive pulmonary disease, unspecified Status: Chronic Assessment and Plan: On oxygen. Subjective Date/time seen: 04/14/25 09:01 Interval history: Denies anymore chest pain. No SOB. Exam Const: General: cooperative, healthy appearing and comfortable Orientation/consciousness: oriented to person, oriented to place and oriented to time Resp: Auscultation: no crackles, no rales, no rhonchi, no wheezes and diminished lung sounds Cardio: Rate: regular rate Rhythm: regular rhythm Heart sounds: no murmurs Peripheral pulses: dorsalis pedis present Neuro: General: oriented to person, oriented to place and oriented to time Extrem: Right lower extremity: no edema Left lower extremity: no edema Objective Data Vital Signs Vital Signs: Vital Signs - 24 hr 04/13/25 11:37 04/13/25 11:37 04/13/25 11:50 Temperature 97.8 F Pulse Rate 155 H 159 H Respiratory Rate 17 17 Blood Pressure 99/85 L Pulse Oximetry 98 97 98 Oxygen Delivery Room Air Nasal Cannula Oxygen Flow Rate 2 04/13/25 12:00 04/13/25 12:02 04/13/25 12:04 Temperature Pulse Rate 148 H 161 H 149 H Respiratory Rate 15 14 14 Blood Pressure 77/67 L 83/71 L Pulse Oximetry 99 99 99 Oxygen Delivery Oxygen Flow Rate 04/13/25 12:13 04/13/25 12:15 04/13/25 12:17 Temperature Pulse Rate 158 H 154 H 156 H Respiratory Rate 22 H 20 Blood Pressure 83/71 L 68/49 L Pulse Oximetry 98 Oxygen Delivery Oxygen Flow Rate 04/13/25 12:19 04/13/25 12:27 04/13/25 12:29 Temperature Pulse Rate 150 H 121 H 95 Respiratory Rate 23 H Blood Pressure 86/76 L 86/76 L 86/76 L Pulse Oximetry Oxygen Delivery Oxygen Flow Rate 04/13/25 12:30 04/13/25 12:31 04/13/25 12:36 Temperature Pulse Rate 101 H 91 94 Respiratory Rate 16 21 H Blood Pressure 101/73 101/73 Pulse Oximetry 98 99 Oxygen Delivery Oxygen Flow Rate 04/13/25 12:45 04/13/25 12:46 04/13/25 13:00 Temperature Pulse Rate 92 93 91 Respiratory Rate 18 14 20 Blood Pressure 114/68 Pulse Oximetry 100 99 100 Oxygen Delivery Oxygen Flow Rate 04/13/25 13:01 04/13/25 13:15 04/13/25 13:16 Temperature Pulse Rate 89 91 90 Respiratory Rate 18 17 15 Blood Pressure 123/73 131/69 Pulse Oximetry 100 100 100 Oxygen Delivery Oxygen Flow Rate 04/13/25 13:30 04/13/25 13:31 04/13/25 14:31 Temperature Pulse Rate 92 86 92 Respiratory Rate 17 17 18 Blood Pressure 123/87 128/79 Pulse Oximetry 100 100 100 Oxygen Delivery Oxygen Flow Rate 04/13/25 16:00 04/13/25 16:00 04/13/25 16:00 Temperature 97.6 F Pulse Rate 85 86 Respiratory Rate 14 Blood Pressure 93/66 L Pulse Oximetry 100 98 Oxygen Delivery Nasal Cannula Oxygen Flow Rate 2 04/13/25 18:00 04/13/25 20:00 04/13/25 20:00 Temperature 98.1 F Pulse Rate 91 89 Respiratory Rate 13 Blood Pressure 143/96 H Pulse Oximetry 97 98 Oxygen Delivery Nasal Cannula Oxygen Flow Rate 2 04/13/25 20:00 04/13/25 20:32 04/13/25 22:00 Temperature Pulse Rate 89 82 78 Respiratory Rate Blood Pressure Pulse Oximetry Oxygen Delivery Oxygen Flow Rate 04/14/25 00:00 04/14/25 00:00 04/14/25 00:00 Temperature 98.3 F Pulse Rate 73 76 Respiratory Rate 17 Blood Pressure 152/87 H Pulse Oximetry 100 100 Oxygen Delivery Nasal Cannula Oxygen Flow Rate 2 04/14/25 02:00 04/14/25 02:28 04/14/25 02:29 Temperature Pulse Rate 74 74 75 Respiratory Rate 16 Blood Pressure Pulse Oximetry 95 Oxygen Delivery Nasal Cannula Oxygen Flow Rate 2 04/14/25 02:35 04/14/25 04:00 04/14/25 04:00 Temperature 97.9 F Pulse Rate 73 73 Respiratory Rate 16 18 Blood Pressure 143/92 H Pulse Oximetry 98 98 Oxygen Delivery Nasal Cannula Oxygen Flow Rate 2 04/14/25 04:00 04/14/25 06:00 04/14/25 07:57 Temperature 98.1 F Pulse Rate 73 71 82 Respiratory Rate 17 Blood Pressure 115/93 H Pulse Oximetry 97 Oxygen Delivery Oxygen Flow Rate 04/14/25 08:00 04/14/25 08:00 04/14/25 08:45 Temperature Pulse Rate 82 82 76 Respiratory Rate 17 16 Blood Pressure Pulse Oximetry 97 Oxygen Delivery Nasal Cannula Oxygen Flow Rate 2 Intake/Output Intake/Output: Intake & Output 04/11/25 04/12/25 04/13/25 04/14/25 23:59 23:59 23:59 23:59 Intake Total 1345 440 Output Total 100 Balance 1345 340 Meds/Results Medications: Active Medications Generic Name Dose Route Start Last Admin Trade Name Freq PRN Reason Stop Dose Admin Acetaminophen 650 mg 04/13/25 12:56 Acetaminophen 325 Mg Tablet PO Q4H PRN Mild Pain (1-3) or Fever Albuterol/Ipratropium 3 ml 04/14/25 07:52 04/14/25 08:43 Ipratropium 0.5 Mg/Albuterol Sulfate 2.5 Mg (Base) Ampul.Neb 3 Ml INHALATION 3 ml Q6HRT PRN Administration Wheezing Aspirin 81 mg 04/14/25 08:00 Aspirin 81 Mg Chewable Tablet PO DAILY@0800 JOSE Furosemide 40 mg 04/13/25 21:02 Furosemide 40 Mg Tablet PO DAILY PRN Edema Guaifenesin 1,200 mg 04/13/25 21:05 04/13/25 21:33 Guaifenesin 12 Hr 600 Mg Tabcr PO 1,200 mg Q12HR JOSE Administration Multivitamins Therapeutic 1 tablet 04/14/25 09:00 Multivitamins Therapeutic Tab (*Bkc) PO DAILY JOSE Ondansetron HCl 4 mg 04/13/25 12:56 Ondansetron Inj 4 Mg/2 Ml Vial IV PUSH Q4H PRN Nausea Pantoprazole Sodium 40 mg 04/14/25 09:00 Pantoprazole 40 Mg Tablet PO DAILY JOSE Perflutren Lipid Microsphere 0 ml 04/13/25 15:41 Perflutren Lipid Microspheres 1.5 Ml Vial Diluted To 10 Ml Total Volume IV PUSH 04/16/25 15:41 ONCE PRN adequate visualization Protocol Rivaroxaban 20 mg 04/13/25 20:30 04/13/25 20:32 Rivaroxaban 20 Mg Tablet PO 20 mg HS JOSE Administration Sotalol HCl 80 mg 04/13/25 21:00 04/13/25 20:32 Sotalol Hcl 80 Mg Tablet PO 80 mg Q12HR JOSE Administration Radiology Results: ITS Impressions Chest X-Ray 04/13/25 12:36 Impression: 1: No acute cardiopulmonary disease. Labs Labs: Laboratory Results - last 24 hr 04/13/25 04/13/25 04/13/25 11:55 20:06 23:06 WBC 9.1 RBC 5.30 Hgb 17.2 Hct 51.7 MCV 97.5 MCH 32.5 MCHC 33.3 RDW 13.2 Plt Count 170 MPV 11.1 H Immature Gran % (Auto) 0.3 Neut % (Auto) 67.8 Lymph % (Auto) 20.4 [place] % (Auto) 11.0 H Eos % (Auto) 0.2 Baso % (Auto) 0.3 Lymph # (Auto) 1.85 [place] # (Auto) 1.0 H Eos # (Auto) 0.0 Baso # (Auto) 0.0 Abs Immat Gran (auto) 0.03 Absolute Neuts (auto) 6.1 Absolute Nucleated RBC 0.000 Nucleated RBC % 0.0 % Immature Plt Fraction PT 16.9 H INR 1.4 APTT 28.4 Sodium 137 Potassium 4.5 Chloride 101 Carbon Dioxide 27 Anion Gap 9 BUN 11 Creatinine 0.74 Estim Creat Clear Calc 68 Estimated GFR > 60 Glucose 113 H Calcium 9.2 Magnesium 1.6 Total Bilirubin 1.0 AST 35 ALT 17 Alkaline Phosphatase 84 Troponin I 0.083 H* 0.289 H* 0.239 H* Total Protein 6.6 Albumin 4.0 Lipase 141 Urine Color Urine Appearance Urine pH Ur Specific [place] Urine Protein Urine Glucose (UA) Urine Ketones Ur Blood (Man) Urine Nitrate Urine Bilirubin Urine Urobilinogen Leukocyte Esterase Rfl 04/14/25 04/14/25 03:29 03:34 WBC 6.1 RBC 4.64 Hgb 14.7 Hct 45.4 MCV 97.8 MCH 31.7 MCHC 32.4 RDW 13.0 Plt Count 118 L MPV 11.0 H Immature Gran % (Auto) 0.2 Neut % (Auto) 61.1 Lymph % (Auto) 22.5 [place] % (Auto) 13.6 H Eos % (Auto) 2.1 Baso % (Auto) 0.5 Lymph # (Auto) 1.37 [place] # (Auto) 0.8 H Eos # (Auto) 0.1 Baso # (Auto) 0.0 Abs Immat Gran (auto) 0.01 Absolute Neuts (auto) 3.7 Absolute Nucleated RBC 0.000 Nucleated RBC % 0.0 % Immature Plt Fraction 6.9 PT INR APTT Sodium 136 L Potassium 3.6 Chloride 103 Carbon Dioxide 27 Anion Gap 6 BUN 10 Creatinine 0.59 L Estim Creat Clear Calc 81 Estimated GFR > 60 Glucose 87 Calcium 8.7 Magnesium 1.9 Total Bilirubin AST ALT Alkaline Phosphatase Troponin I Total Protein Albumin Lipase Urine Color Yellow Urine Appearance Clear Urine pH 5.5 Ur Specific [place] 1.019 Urine Protein Negative Urine Glucose (UA) Negative Urine Ketones 2+ H Ur Blood (Man) Negative Urine Nitrate Negative Urine Bilirubin Negative Urine Urobilinogen 0.2 Leukocyte Esterase Rfl Negative
[2025-04-14] MEDS: SOTALOL HCL 80 MG TABLET PO ×2 (09:02→20:00)
--- NOTE | 2025-04-14 09:30 | PC.NURSE ---
Patient transfered to room 204 per wheelchair. Belongings sent. Report given to KIRT Vega. All questions answered.
--- NOTE | 2025-04-14 10:19 | ECG_ITS ---
Test Date: 2025-04-14 10:39:43 Measurements Intervals [place] Rate: 69 P: 76 ID: [id number] QRS: 50 QRSD: 85 T: 79 QT: 428 QTc: 460 Interpretive Statements SINUS RHYTHM Compared to ECG 04/13/2025 22:38:21 Ventricular premature complex(es) no longer present Electronically Signed On 04-14-2025 13:40:25 [employer] by Philipp Castillo M.D.
[2025-04-14] MEDS: PERFLUTREN LIPID MICROSPHERES 1.5 ML VIAL DILUTED TO 10 ML TOTAL VOLUME IV PUSH (11:32)
--- NOTE | 2025-04-14 11:32 | IVDEFINITY ---
Prior to administration of IV Definity the patient was educated on the risks and benefits of the imaging enhancing agent including potential adverse side effects. The patient verbalized understanding. Allergies were verified. No exclusion criteria were identified and at least one of the following inclusion criteria were met: 1) physician request, 2) patient technically difficult to image (per the [place] [employer] guidelines of two or more segments not discernable within the apical view), or 3) questionable left ventricular function. ?
[2025-04-14] MEDS: RIVAROXABAN 20 MG TABLET PO (20:00)
--- NOTE | 2025-04-14 22:00 | ECG_ITS ---
Test Date: 2025-04-14 21:51:59 Measurements Intervals [place] Rate: 76 P: 89 [place]: 125 QRS: 23 QRSD: 81 T: 72 QT: 447 QTc: 504 Interpretive Statements SINUS RHYTHM WITH FREQUENT VENTRICULAR PREMATURE COMPLEXES PROLONGED QT INTERVAL ABNORMAL ECG Compared to ECG 04/14/2025 10:39:43 Ventricular premature complex(es) now present Prolonged QT interval now present Electronically Signed On 04-15-2025 08:51:19 [employer]EARCH AND EVALUATION ANALYST by Ryder Galloway M.D.
[2025-04-15] VITALS (9 sets, daily range): BP systolic 104–137; BP diastolic 69–83; PULSE 65–102; RESP 16–20; TEMP 36.6–36.7; O2SAT 97–99
[2025-04-15 04:30] LABS: Anion Gap 3 mmol/L (4-12); Blood Urea Nitrogen 10 mg/dL (9-20); Calcium 8.8 mg/dL (8.4-10.2); Carbon Dioxide 28 mmol/L (22-30); Chloride 103 mmol/L (98-107); Estimated CRCL calculation 82 ml/min; Estimated Glomerular Filt Rate > 60; Glucose 93 mg/dL (65-110); Magnesium 1.7 mg/dL (1.6-2.3); Potassium 3.7 mmol/L (3.4-5.0); Sodium 134 mmol/L (137-145)
--- NOTE | 2025-04-15 07:47 | PM.PNCARD ---
Progress Note: A&P Assessment and Plan (1) PAF (paroxysmal atrial fibrillation): Code(s): I48.0 - Paroxysmal atrial fibrillation Status: Acute Assessment and Plan: Back in Sinus rhythm. [id number] 3. On Xarelto for hx of DVT already. To maintain sinus rhythm, start 04/13/25 Sotalol 80 mg BID. Stopped Atenolol. May d/c home after 4th dose of Sotalol if OK. (2) Elevated troponin: Code(s): R79.89 - Other specified abnormal findings of blood chemistry Status: Acute Assessment and Plan: Probably related to demand ischemia from rapid atrial fib. Troponin peaked at 0.28. 04/14/25 Echo: EF 60-65%. (3) Hypertension: Code(s): I10 - Essential (primary) hypertension Status: Chronic Assessment and Plan: Stable. (4) AAA (abdominal aortic aneurysm): Code(s): I71.40 - Abdominal aortic aneurysm, without rupture, unspecified Status: Acute Assessment and Plan: Stable. (5) COPD, very severe: Code(s): J44.9 - Chronic obstructive pulmonary disease, unspecified Status: Chronic Assessment and Plan: On oxygen. Subjective Date/time seen: 04/15/25 07:47 Interval history: Denies anymore chest pain. Has chronic mild SOB. He felt congested last night. Exam Const: General: cooperative, healthy appearing and comfortable Orientation/consciousness: oriented to person, oriented to place and oriented to time Resp: Auscultation: no crackles, no rales, no rhonchi, no wheezes and diminished lung sounds Cardio: Rate: tachycardic Rhythm: regular rhythm Heart sounds: no murmurs Peripheral pulses: dorsalis pedis present Neuro: General: oriented to person, oriented to place and oriented to time Extrem: Right lower extremity: no edema Left lower extremity: no edema Objective Data Vital Signs Vital Signs: Vital Signs - 24 hr 04/14/25 07:57 04/14/25 08:00 04/14/25 08:00 Temperature 98.1 F Pulse Rate 82 82 82 Respiratory Rate 17 17 Blood Pressure 115/93 H Pulse Oximetry 97 97 Oxygen Delivery Nasal Cannula Oxygen Flow Rate 2 04/14/25 08:09 04/14/25 08:45 04/14/25 09:02 Temperature Pulse Rate 81 76 72 Respiratory Rate 16 Blood Pressure Pulse Oximetry 95 Oxygen Delivery Nasal Cannula Oxygen Flow Rate 2 04/14/25 10:00 04/14/25 12:00 04/14/25 12:00 Temperature 98.3 F Pulse Rate 65 80 82 Respiratory Rate 20 Blood Pressure 131/87 Pulse Oximetry 99 Oxygen Delivery Oxygen Flow Rate 04/14/25 12:00 04/14/25 14:00 04/14/25 14:33 Temperature Pulse Rate 82 66 70 Respiratory Rate 17 20 Blood Pressure Pulse Oximetry 97 Oxygen Delivery Nasal Cannula Oxygen Flow Rate 2 04/14/25 14:43 04/14/25 15:05 04/14/25 16:00 Temperature 98.3 F Pulse Rate 66 82 70 Respiratory Rate 20 17 20 Blood Pressure 136/85 Pulse Oximetry 97 100 Oxygen Delivery Nasal Cannula Oxygen Flow Rate 2 04/14/25 20:00 04/14/25 20:00 04/14/25 20:00 Temperature 97 F L Pulse Rate 76 81 Respiratory Rate 18 Blood Pressure 158/81 H Pulse Oximetry 98 99 Oxygen Delivery Nasal Cannula Oxygen Flow Rate 2 04/14/25 20:29 04/14/25 20:33 04/14/25 20:35 Temperature Pulse Rate 72 72 Respiratory Rate 18 18 Blood Pressure Pulse Oximetry 98 Oxygen Delivery Nasal Cannula Oxygen Flow Rate 2 04/14/25 22:00 04/15/25 00:00 04/15/25 00:00 Temperature Pulse Rate 65 65 84 Respiratory Rate Blood Pressure Pulse Oximetry 98 Oxygen Delivery Nasal Cannula Oxygen Flow Rate 2 04/15/25 00:00 04/15/25 02:00 04/15/25 04:00 Temperature 98.1 F Pulse Rate 81 72 72 Respiratory Rate 18 Blood Pressure 137/83 Pulse Oximetry 99 99 Oxygen Delivery Nasal Cannula Oxygen Flow Rate 2 04/15/25 04:00 04/15/25 04:00 04/15/25 06:00 Temperature 97.9 F Pulse Rate 101 H 74 89 Respiratory Rate 16 Blood Pressure 121/80 Pulse Oximetry 99 Oxygen Delivery Oxygen Flow Rate Intake/Output Intake/Output: Intake & Output 04/12/25 04/13/25 04/14/25 04/15/25 23:59 23:59 23:59 23:59 Intake Total 1345 1680 350 Output Total 100 Balance 1345 1580 350 Meds/Results Medications: Active Medications Generic Name Dose Route Start Last Admin Trade Name Omaira PRN Reason Stop Dose Admin Acetaminophen 650 mg 04/13/25 12:56 Acetaminophen 325 Mg Tablet PO Q4H PRN Mild Pain (1-3) or Fever Albuterol/Ipratropium 3 ml 04/14/25 07:52 04/14/25 14:32 Ipratropium 0.5 Mg/Albuterol Sulfate 2.5 Mg (Base) Ampul.Neb 3 Ml INHALATION 3 ml Q6HRT PRN Administration Wheezing Albuterol/Ipratropium 3 ml 04/14/25 20:00 04/14/25 20:29 Ipratropium 0.5 Mg/Albuterol Sulfate 2.5 Mg (Base) Ampul.Neb 3 Ml INHALATION 3 ml [id number] JOSE Administration Aspirin 81 mg 04/14/25 08:00 04/14/25 08:59 Aspirin 81 Mg Chewable Tablet PO 81 mg DAILY@0800 JOSE Administration Furosemide 40 mg 04/13/25 21:02 Furosemide 40 Mg Tablet PO DAILY PRN Edema Guaifenesin 1,200 mg 04/13/25 21:05 04/14/25 20:00 Guaifenesin 12 Hr 600 Mg Tabcr PO 1,200 mg Q12HR JOSE Administration Multivitamins Therapeutic 1 tablet 04/14/25 09:00 04/14/25 09:00 Multivitamins Therapeutic Tab (*Bkc) PO 1 tablet DAILY JOSE Administration Ondansetron HCl 4 mg 04/13/25 12:56 Ondansetron Inj 4 Mg/2 Ml Vial IV PUSH Q4H PRN Nausea Pantoprazole Sodium 40 mg 04/14/25 09:00 04/14/25 09:00 Pantoprazole 40 Mg Tablet PO 40 mg DAILY JOSE Administration Rivaroxaban 20 mg 04/13/25 20:30 04/14/25 20:00 Rivaroxaban 20 Mg Tablet PO 20 mg HS JOSE Administration Sotalol HCl 80 mg 04/13/25 21:00 04/14/25 20:00 Sotalol Hcl 80 Mg Tablet PO 80 mg Q12HR JOSE Administration Radiology Results: ITS Impressions Chest X-Ray 04/13/25 12:36 Impression: 1: No acute cardiopulmonary disease. Labs Labs: Laboratory Results - last 24 hr 04/15/25 03:54 Sodium 134 L Potassium 3.7 Chloride 103 Carbon Dioxide 28 Anion Gap 3 L BUN 10 Creatinine 0.58 L Estim Creat Clear Calc 82 Estimated GFR > 60 Glucose 93 Calcium 8.8 Magnesium 1.7
[2025-04-15] MEDS: IPRATROPIUM 0.5 MG/ALBUTEROL SULFATE 2.5 MG (BASE) AMPUL.NEB 3 ML INHALATION (07:53)
[2025-04-15] MEDS: guaiFENesin 12 HR 600 MG TABCR 1200 MG PO (08:43)
[2025-04-15] MEDS: MULTIVITAMINS THERAPEUTIC TAB (*BKC) 1 TABLET PO (08:43)
[2025-04-15] MEDS: PANTOPRAZOLE 40 MG TABLET PO (08:43)
[2025-04-15] MEDS: SOTALOL HCL 80 MG TABLET PO (08:43)
[2025-04-15] MEDS: ASPIRIN 81 MG CHEWABLE TABLET PO (08:44)
--- NOTE | 2025-04-15 09:25 | PM.DS ---
DS: Admitting Diagnosis Discharge Date 04/15/2025 Admitting Diagnosis AFib with RVR DS: Discharge Diagnosis Discharge Diagnosis (1) Atrial fibrillation with RVR: Code(s): I48.91 - Unspecified atrial fibrillation Status: Acute Assessment and Plan: Patient was evaluated by Cardiology. Patient converted with amiodarone bolus Cardiology has started sotalol 80 mg q.12 this evening. Add in all discontinue Patient was given aspirin in the ER. Patient is on be on Xarelto anticoagulation Echo ordered and pending Telemetry monitoring Electrolyte replacement (2) Elevated troponin: Code(s): R79.89 - Other specified abnormal findings of blood chemistry Status: Acute Assessment and Plan: Mild elevation in troponin likely secondary to AFib with RVR. Patient denies any chest pain. EKG reviewed Further evaluation management per Cardiology (3) COPD, very severe: Code(s): J44.9 - Chronic obstructive pulmonary disease, unspecified Status: Chronic Assessment and Plan: Severe emphysema documented on previous scans. Home O2 dependent at 2 L. Patient currently at baseline for his COPD. -follows pulmonology outpatient -continue home DuoNeb q.6 but change to p.r.n., Mucinex 1200 mg b.i.d. (4) Non-small cell lung cancer: Code(s): C34.90 - Malignant neoplasm of unspecified part of unspecified bronchus or lung Status: Chronic Assessment and Plan: Follows with Dr. Nolasco. Diagnosed with left upper lobe [id number] lung cancer in October 2023. SBRT 50Gy/5Fx completed 12/17/23. New right lower lobe lesion under surveillance. -follow-up imaging scheduled for next month (5) History of DVT (deep vein thrombosis): Code(s): Z86.718 - Personal history of other venous thrombosis and embolism Status: Chronic Assessment and Plan: Continue home Xarelto (6) Electrolyte abnormality: Code(s): E87.8 - Other disorders of electrolyte and fluid balance, not elsewhere classified Status: Acute Assessment and Plan: Replace low potassium and magnesium Plan Diet: Heart healthy GI prophylaxis: Pantoprazole DVT prophylaxis: Xarelto lines/drains: PIV Fluids: NA Code status: Full DS: Summary Hospital Course Reason for hospitalization: AFib with RVR Hospital Course: 74 years old male was admitted complains of having palpitation patient was found to have AFib with RVR. Patient was given amiodarone and on started on sotalol. Patient was continued for his treatment for COPD and hypertension. Today patient is feeling better patient did not have any complicating his stay in the hospital. Patient discharged home in stable condition follow-up scheduled. Status at Discharge Cognitive/behavioral status at discharge: Stable Time Spent with Patient Time attestation: Total time spent providing and/or coordinating discharge services: 30 minutes Exam Narrative: GENERAL: Chronically ill-appearing. Frail HEAD: Normocephalic, atraumatic. EYES: PERRLA. Conjunctivae clear. NOSE: Normal no drainage. THROAT: Pharynx clear, no exudate. NECK: Trachea midline. No adenopathy, no masses. RESPIRATORY: Airway patent, respirations nonlabored. Diminished air movement bilaterally. No wheezes CARDIOVASCULAR: Regular rate and rhythm GASTROINTESTINAL: Abdomen is soft and nontender. No organomegaly. Bowel sounds normal in all quadrants. GENITOURINARY: Defer MUSCULOSKELETAL: Moves all extremities. No gross deformities. No edema SKIN: Warm, dry, normal color. Small lipoma on his back on the left side close to shoulder blade NEURO: A&O X4. Speech clear PSYCHIATRIC: Normal interaction DS: Data Data Completed and Pending Labs on day of discharge: Labs from last 24 hours 04/15/25 03:54 Sodium 134 L Potassium 3.7 Chloride 103 Carbon Dioxide 28 Anion Gap 3 L BUN 10 Creatinine 0.58 L Estim Creat Clear Calc 82 Estimated GFR > 60 Glucose 93 Calcium 8.8 Magnesium 1.7 Discharge Plan Discharge Attending physician on discharge: Sukhi Aguilera Consulting providers: Sukhi Aguilera Discharging Clinician: Sukhi Aguilera Patient Disposition: Home Activity: as tolerated Diet: as tolerated and heart healthy Patient Instructions: Antibiotic Form, Sotalol (By mouth), Rivaroxaban (By mouth), A-fib (Atrial Fibrillation) (GEN) Patient Language: Montenegrin Stand Alone Forms: General Discharge Information Follow-up/Referrals: Sukhi Aguilera DO [Physician, Cardiology] Umer Melendez MD [Physician, Family Practice] Discharge Medications: New aspirin [Children's Aspirin] 81 mg Tablet,Chewable 81 mg PO DAILY@0800 Qty: 30 0RF sotalol 80 mg Tablet 80 mg PO Q12HR Qty: 60 0RF doxycycline hyclate 100 mg capsule 100 mg PO DAILY Qty: 14 0RF methylprednisolone [Medrol (Eriberto)] 4 mg tablets,dose pack See Rx Instructions .ROUTE .COMPLEX Qty: 21 0RF Rx Instructions: for 6 days Continued albuterol sulfate [Ventolin HFA] 90 mcg/actuation HFA aerosol inhaler 1 inhalation INHALATION Q4H PRN (Reason: Wheezing) ipratropium-albuterol 0.5 mg-3 mg(2.5 mg base)/3 mL Solution For Nebulization 3 ml inhalation Q6H Qty: 180 0RF multivitamin [Multiple Vitamins] Tablet 1 tablet PO DAILY Qty: 30 0RF Xarelto 20 mg tablet 20 mg PO QPM Qty: 30 0RF furosemide 40 mg tablet 40 mg PO DAILY PRN (Reason: edema) Qty: 30 0RF pantoprazole [Protonix] 20 mg tablet,delayed release (DR/EC) 40 mg PO DAILY Qty: 30 0RF guaifenesin [Mucinex] 1,200 mg Tablet Extended Release 12hr 1,200 mg PO BID Qty: 60 0RF Discontinued atenolol 50 mg tablet 50 mg PO DAILY (DME) nebulizer and compressor [Easy Neb Compressor Nebulizer] Device See Rx Instructions .Route Qty: 1 0RF Rx Instructions: As directed Every six hours as needed for shortness of breath Date of admission: 04/14/25 10:39 Primary Care Provider: Nikhil,Martin Whaley Admitting Provider: Tucker Hernandez Attending physician on admission: Tucker Hernandez Condition: Stable Quality VTE Prophylaxis VTE prophylaxis: pharmacologic ordered
--- NOTE | 2025-04-15 10:45 | ECG_ITS ---
Test Date: 2025-04-15 10:45:18 Measurements Intervals [place] Rate: 79 P: 65 ME: 133 QRS: -8 QRSD: 76 T: 60 QT: 416 QTc: 478 Interpretive Statements SINUS RHYTHM WITH OCCASIONAL VENTRICULAR PREMATURE COMPLEXES WITH OCCASIONAL SUPRAVENTRICULAR PREMATURE COMPLEXES ABNORMAL ECG Compared to ECG 04/14/2025 21:51:59 Prolonged QT interval no longer present Electronically Signed On 04-15-2025 11:08:25 PLASTICS SUPERVISOR by Ryder Galloway M.D.
== END 2025-04-15 11:17 | disposition home or self-care (01) | DRG 309 ==
LOC: ANHED 12:04 → ANHICU 13:38 → ANHIMU 04-14 09:09
PROVIDERS: Internal Medicine Cardiovascular Disease; Nurse Practitioner Adult Health; Physician Assistant; Admitting Provider Internal Medicine; Emergency Provider Emergency Medicine; PCP Internal Medicine; Visit Provider Internal Medicine
DX: I48.91 Unspecified atrial fibrillation (principal); D83.9 Common variable immunodeficiency, unspecified; I24.89 Other forms of acute ischemic heart disease; I10 Essential (primary) hypertension; I71.20 Thoracic aortic aneurysm, without rupture, unspecified; C61 Malignant neoplasm of prostate; E78.5 Hyperlipidemia, unspecified; J44.9 Chronic obstructive pulmonary disease, unspecified; G47.30 Sleep apnea, unspecified; Z20.822 Contact with and (suspected) exposure to COVID-19; Z79.01 Long term (current) use of anticoagulants; Z87.891 Personal history of nicotine dependence; Z86.718 Personal history of other venous thrombosis and embolism; Z85.118 Personal history of other malignant neoplasm of bronchus and lung; Z99.81 Dependence on supplemental oxygen; Z92.3 Personal history of irradiation
CPT/HCPCS: 36415; 71045; 80048; 80053; 81003; 83690; 83735; 84484; 85025; 85055; 85610; 85730; 93005; 94640; 96361; 96365; 96375; 99285; A9270; C8929; G0378; J0283; J3475; J7030; Q9957

== ENCOUNTER 2025-04-22 12:06 | Emergency (ER) | payer MEDICARE, OTHER, SELFPAY ==
--- NOTE | ~2025-04-22 | XR_ITS ---
Examination: XR chest 2V Clinical History: SOA Comparison: Portable chest x-ray 04/13/2025 CT chest 02/08/2025 Technique: PA and Lateral Findings: Cardiomediastinal silhouette normal size and configuration. Emphysema and chronic interstitial changes. Left perihilar nodule better seen on CT. No acute bony abnormality. IMPRESSION: 1. No acute cardiopulmonary findings. Reviewed, dictated and finalized at location R. TECHNICIAN
[2025-04-22 12:06] VITALS: BP 151/90; PULSE 85; RESP 26; TEMP 36.4; O2SAT 93
--- NOTE | 2025-04-22 12:24 | ECG_ITS ---
Test Date: 2025-04-22 12:36:10 Measurements Intervals [place] Rate: 82 P: 71 [place]: 140 QRS: -1 QRSD: 77 T: 66 QT: 398 QTc: 465 Interpretive Statements SINUS RHYTHM WITH OCCASIONAL SUPRAVENTRICULAR PREMATURE COMPLEXES BASELINE ARTIFACT- I, II, III, AVR, V1-V2 BORDERLINE ECG Compared to ECG 04/15/2025 10:45:18 Ventricular premature complex(es) no longer present Electronically Signed On 04-22-2025 13:03:43 CONDOMINIUM MANAGER by Sukhi Aguilera D.O.
[2025-04-22 12:36] VITALS: O2SAT 99
[2025-04-22] MEDS: IPRATROPIUM BR 0.02% INH SOLN 0.5 MG/2.5 ML VIAL 1.5 MG INHALATION (12:43)
[2025-04-22] MEDS: ALBUTEROL SULFATE NEB 2.5 MG/3 ML INH 15 MG INHALATION (12:43)
[2025-04-22 13:21] LABS: Hematocrit 46.4 % (42.0-52.0); Hemoglobin 15.4 g/dL (14.0-18.0); Immature Granulocyte Percent A 0.4 % (0-0.5); Lymphocytes Absolute Auto 2.86 K/mm3 (0.9-3.2); Mean Corpuscular HGB Conc 33.2 g/dl (32-36); Mean Corpuscular Hemoglobin 32.0 pg (26-34); Mean Corpuscular Volume 96.3 fl (80-100); Nucleated Red Blood Cells Absolute Auto 0.000 K/mm3 (0.0-0.012); Nucleated Red Blood Cells Perc 0.0 % (0.0-0.2); Platelet Count Result 156 k/mm3 (150-375); Red Blood Count 4.82 M/mm3 (4.6-6.20); White Blood Count 8.0 K/mm3 (4.5-10.0)
[2025-04-22 13:34] LABS: Alanine Aminotransferase 18 U/L (6-50); Albumin Level 3.7 g/dL (3.5-5.1); Alkaline Phosphatase 88 U/L (38-126); Anion Gap 2 mmol/L (4-12); Aspartate Amino Transferase 31 U/L (17-59); Bilirubin,Total 0.8 mg/dL (0.2-1.3); Blood Urea Nitrogen 15 mg/dL (9-20); Calcium 9.3 mg/dL (8.4-10.2); Carbon Dioxide 33 mmol/L (22-30); Chloride 97 mmol/L (98-107); Estimated CRCL calculation 82 ml/min; Estimated Glomerular Filt Rate > 60; Glucose 107 mg/dL (65-110); Potassium 3.8 mmol/L (3.4-5.0); Sodium 132 mmol/L (137-145); Total Protein 6.3 g/dL (6.3-8.2)
[2025-04-22 13:40] VITALS: BP 140/98; PULSE 95; RESP 16; O2SAT 100
[2025-04-22 13:41] LABS: NT Pro B Type Natriuretic Pept 241 pg/mL (19.9-100)
[2025-04-22 14:04] LABS: Influenza A QL RT-PCR Negative (Negative); Influenza B QL RT-PCR Negative (Negative); RSV RNA, RT-PCR Negative (Negative); SARS-CoV-2 RNA PCR Negative (Negative)
[2025-04-22 14:15] VITALS: BP 146/84; PULSE 76; RESP 16; O2SAT 100
--- NOTE | 2025-04-22 14:31 | ED.SOB ---
HPI - SOB/Dyspnea General Chief Complaint: Shortness of Breath/Dyspnea Stated Complaint: SOB, ?PNA Time Seen by Provider: 04/22/25 12:15 History of Present Illness HPI Narrative: Patient is a 74-year-old male with history of COPD who wears 2 L chronically that presents ER with shortness of breath. Worsening over last couple days. Mild cough. Not productive. No fevers or chills. Denies chest pain or pressure. No known sick contacts. Has mild orthopnea which is chronic. Related Data Home Medications ?Medication ?Instructions ?Recorded ?Confirmed ?Last Taken ?Type albuterol sulfate 90 mcg/actuation 1 inhalation inhalation Q4H PRN 05/27/19 04/13/25 01/04/24 History aerosol inhaler (Ventolin HFA) Wheezing Allergies Allergy/AdvReac Type Severity Reaction Status Date / Time No Known Allergies Allergy Verified 04/22/25 12:11 Review of Systems Review of Systems: All systems reviewed & are unremarkable except as noted in HPI and below Constitutional: Constitutional: Reports no additional constitutional complaints ENT: Reports system reviewed and no additional complaints, except as documented Cardiovascular: Cardiovascular: Reports no additional cardiovascular complaints Respiratory: Respiratory: Reports no additional respiratory complaints Musculoskeletal: Musculoskeletal: Reports no additional musculoskeletal complaints [facility] Past Medical History Medical History (Updated 04/22/25 @ 15:32 by Diego Enriquez MD) CVID (common variable immunodeficiency) BMI 22.0-22.9, adult Pneumonia Hyperlipidemia Hypertension History of prostate cancer Thoracic aortic aneurysm without rupture History of DVT (deep vein thrombosis) L LE (chronic swelling in extremity) Sleep apnea COPD exacerbation Surgical History Surgical History H/O foot surgery H/O cataract extraction Family History Family History Mother Family history of lung cancer Father Acute myocardial infarction VTE (venous thromboembolism) Social History Social History Social History: The patient lives at home with his who is the durable power mule packer for healthcare. If she cannot be durable power mule packer his daughters will be. The patient has 2 children. 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 Patient is a former smoker. He denies any alcohol marijuana or illicit drugs. Code status full code Smoking packs per day: 3 Smoking cigarettes per day: 60.0 Years smoked: 40 Smoking pack-years: 120.00 Smoking status: Former smoker Second hand tobacco smoke exposure: No Alcohol intake: current Drinks per week: 14 Substance use: never Lack of Transportation: No Lack of Food: Never True Current Housing: I Have Housing Concerned About Future Housing: No Difficulty Paying Gas/Electric Bills: No Difficulty Paying for Meds: No Currently Unemployed: No Education: Decline to Answer Difficulty w/ Childcare or Family Care: No Spiritual care concerns: No Exam Narrative: GENERAL: Chronically ill-appearing, well-nourished, and in no acute distress. HEAD: Normocephalic, atraumatic. ENT: Mucous membranes moist. CHEST: Diffuse expiratory wheezing. No respiratory distress. HEART: Regular rate and rhythm. Normal peripheral pulses. ABDOMEN: Soft, nontender, nondistended. EXTREMITIES: Normal range of motion. No edema. SKIN: Warm, dry, no rash. NEURO: Alert and oriented x3. PSYCH: Normal mood and affect. Course Course Emergency Course: Lungs clear to auscultation after hour long nebulizer treatment. Discharge home with prednisone, duoneb, and doxycycline. Vital Signs Vital signs: Vital Signs Temperature 97.6 F 04/22/25 12:06 Pulse Rate 85 04/22/25 12:06 Respiratory Rate 26 H 04/22/25 12:06 Blood Pressure 151/90 H 04/22/25 12:06 Pulse Oximetry 93 04/22/25 12:06 Oxygen Delivery Nasal Cannula 04/22/25 12:06 Oxygen Flow Rate 2 04/22/25 12:06 Temperature 97.6 F 04/22/25 12:06 Pulse Rate 76 04/22/25 14:15 Respiratory Rate 16 04/22/25 14:15 Blood Pressure 146/84 H 04/22/25 14:15 Pulse Oximetry 100 04/22/25 14:15 Oxygen Delivery Nasal Cannula 04/22/25 12:36 Oxygen Flow Rate 2 04/22/25 12:36 MDM Differential Diagnosis Differential Diagnosis: COPD exacerbation, pneumothorax, pneumonia, congestive heart failure, sepsis Lab Data [facility] Lab Attestation statement: I personally reviewed the patient's lab results. 04/22/25 13:05 04/22/25 13:05 Labs: Lab Results 04/22/25 Range/Units 13:05 WBC 8.0 (4.5-10.0) K/mm3 RBC 4.82 (4.6-6.20) M/mm3 Hgb 15.4 (14.0-18.0) g/dL Hct 46.4 (42.0-52.0) % MCV 96.3 (80-100) fl MCH 32.0 (26-34) pg MCHC 33.2 (32-36) g/dl RDW 12.5 (11.5-14.5) % Plt Count 156 (150-375) k/mm3 MPV 10.6 H (7.4-10.4) fl Immature Gran % (Auto) 0.4 (0-0.5) % Neut % (Auto) 47.8 (45.5-73.1) % Lymph % (Auto) 35.6 (18.3-44.2) % [place] % (Auto) 14.7 H (2.6-8.5) % Eos % (Auto) 1.0 (0-4.4) % Baso % (Auto) 0.5 (0.2-1.2) % Lymph # (Auto) 2.86 (0.9-3.2) K/mm3 [place] # (Auto) 1.2 H (0.1-0.6) K/mm3 Eos # (Auto) 0.1 (0-0.3) K/mm3 Baso # (Auto) 0.0 (0.0-0.1) K/mm3 Abs Immat Gran (auto) 0.03 (0.00-0.031) K/mm3 Absolute Neuts (auto) 3.8 (1.3-6.7) K/mm3 Absolute Nucleated RBC 0.000 (0.0-0.012) K/mm3 Nucleated RBC % 0.0 (0.0-0.2) % Sodium 132 L (137-145) mmol/L Potassium 3.8 (3.4-5.0) mmol/L Chloride 97 L (98-107) mmol/L Carbon Dioxide 33 H (22-30) mmol/L Anion Gap 2 L (4-12) mmol/L BUN 15 D (9-20) mg/dL Creatinine 0.55 L (0.7-1.3) mg/dL Estim Creat Clear Calc 82 ml/min Estimated GFR > 60 (59 - ) Glucose 107 (65-110) mg/dL Calcium 9.3 (8.4-10.2) mg/dL Total Bilirubin 0.8 (0.2-1.3) mg/dL AST 31 (17-59) U/L ALT 18 (6-50) U/L Alkaline Phosphatase 88 (38-126) U/L NT-Pro-B Natriuret Pep 241 H (19.9-100) pg/mL Total Protein 6.3 (6.3-8.2) g/dL Albumin 3.7 (3.5-5.1) g/dL Influenza A (RT-PCR) Negative (Negative) Influenza B (RT-PCR) Negative (Negative) RSV (RT-PCR) Negative (Negative) SARS-CoV-2 RNA (RT-PCR) Negative (Negative) Imaging Data Radiologist's impression: ITS Impressions Chest X-Ray 04/22/25 14:33 IMPRESSION: 1. No acute cardiopulmonary findings. ECG Data EKG #1: Attestation: I personally reviewed and interpreted this ECG as follows: ECG completion date: 04/22/25 ECG completion time: 12:36 normal rate (82), sinus rhythm, non-specific ST changes, normal QRS, normal QT and NL axis Discharge Plan Discharge Clinical Impression: COPD exacerbation Patient Disposition: Home Condition: Stable Instructions: COPD (Chronic Obstructive Pulmonary Disease) (ED) Additional Instructions: Please return to the emergency department if you develop severe and persistent chest pain, difficulty breathing, dizziness, leg swelling or if you are coughing up blood as these can be signs of a medical emergency. Please call your doctor for a follow up appointment to determine the need for further testing. Patient Language: Malay Prescriptions: New ipratropium-albuterol 0.5 mg-3 mg(2.5 mg base)/3 mL solution for nebulization 3 ml inhalation QID PRN (Reason: shortness of breath) Qty: 90 0RF prednisone 50 mg tablet 50 mg PO DAILY Qty: 7 0RF doxycycline hyclate 100 mg tablet 100 mg PO BID Qty: 10 0RF No Action albuterol sulfate [Ventolin HFA] 90 mcg/actuation HFA aerosol inhaler 1 inhalation INHALATION Q4H PRN (Reason: Wheezing) ipratropium-albuterol 0.5 mg-3 mg(2.5 mg base)/3 mL Solution For Nebulization 3 ml inhalation Q6H Qty: 180 0RF aspirin [Children's Aspirin] 81 mg Tablet,Chewable 81 mg PO DAILY@0800 Qty: 30 0RF doxycycline hyclate 100 mg capsule 100 mg PO DAILY Qty: 14 0RF methylprednisolone [Medrol (Eriberto)] 4 mg tablets,dose pack See Rx Instructions .ROUTE .COMPLEX Qty: 21 0RF Rx Instructions: for 6 days multivitamin [Multiple Vitamins] Tablet 1 tablet PO DAILY Qty: 30 0RF furosemide 40 mg tablet 40 mg PO DAILY PRN (Reason: edema) Qty: 30 0RF pantoprazole [Protonix] 20 mg tablet,delayed release (DR/EC) 40 mg PO DAILY Qty: 30 0RF guaifenesin [Mucinex] 1,200 mg Tablet Extended Release 12hr 1,200 mg PO BID Qty: 60 0RF Xarelto 20 mg tablet 20 mg PO QPM Qty: 30 0RF sotalol 80 mg tablet 40 mg PO BID Qty: 30 5RF diltiazem HCl [Cardizem CD] 120 mg capsule,extended release 24hr 120 mg PO DAILY Qty: 30 5RF Follow-up/Referrals: Nikhil,Martin Whaley MD [Primary Care Provider, Unknown] - 1 Week
--- NOTE | 2025-04-22 15:43 | PC.NURSE ---
LATE ENTRY This note is being entered to document information to the patient's record. The following information was omitted on [], by [].
== END 2025-04-22 15:58 | disposition home or self-care (01) ==
PROVIDERS: Emergency Provider Emergency Medicine; PCP Internal Medicine
DX: J44.1 Chronic obstructive pulmonary disease with (acute) exacerbation (principal); Z99.81 Dependence on supplemental oxygen; Z20.822 Contact with and (suspected) exposure to COVID-19; I10 Essential (primary) hypertension; E78.5 Hyperlipidemia, unspecified; G47.30 Sleep apnea, unspecified; Z87.01 Personal history of pneumonia (recurrent); Z85.46 Personal history of malignant neoplasm of prostate; Z86.718 Personal history of other venous thrombosis and embolism; Z87.891 Personal history of nicotine dependence; Z98.49 Cataract extraction status, unspecified eye; Z79.82 Long term (current) use of aspirin; Z79.01 Long term (current) use of anticoagulants; Z79.899 Other long term (current) drug therapy
CPT/HCPCS: 36415; 71046; 80053; 83880; 85025; 87637; 93005; 94640; 96374; 99284; J2919

== ENCOUNTER 2025-05-17 09:07 | Outpatient (CLI) | payer MEDICARE, OTHER, SELFPAY ==
--- NOTE | ~2025-05-17 | CT_ITS ---
EXAMINATION: CT diagnostic chest w con DATE: 05/17/2025 09:33 INDICATION: C34.90 - Malignant neoplasm of unspecified part of unspec... Lung cancer TECHNIQUE: Computed tomography (CT) of the chest was performed with 100 mL Omnipaque-350 intravenous contrast. Additional 3D reconstructions utilizing coronal maximum intensity projection (MIP) were performed. Automated exposure control and iterative reconstruction technique were employed. The dose-length product was 162.28 mGy-cm. COMPARISON: 02/08/2025 FINDINGS: Moderate to severe emphysema. No interval change in a linear band of discoid atelectasis in the left upper lobe spanning an unchanged 1.6 x 1.2 cm perihilar nodule. Additional linear bands of discoid atelectasis in the right lower lobe and lingula. Interval increase in size of a previously 1.0 cm, currently 1.3 cm subpleural nodule in the posterior basilar segment of the left lower lobe. This represents a further increase from CT dated 04/13/2024 at which time the nodule measured 7 mm. No other new or enlarging pulmonary nodules, pneumonia, pulmonary edema or pleural effusion. Heart size is normal. Atherosclerotic coronary artery calcification. No pericardial effusion. There is a fusiform aneurysm of the descending aorta which measures up to 4.2 cm in maximal diameter at the level of the thoracic hiatus. There is some crescentic peripheral thrombus in the region of the aneurysm within which is some linear calcification which suggests possible prior dissection with thrombosed false lumen. No pathologically enlarged thoracic lymphadenopathy. Stable appearance of a chronic T7 burst fracture with 80% anterior to central vertebral body height loss and chronic T10-T11 compression fractures with minimal anterior vertebral body height loss and 20% anterior vertebral body height loss respectively. IMPRESSION: 1. Continued increase in size of a now 1.3 cm subpleural nodule at the posterior basilar segment left lower lobe consistent with malignancy which could be either primary or metastatic. 2. No change in a 1.6 cm left upper lobe nodule a band of discoid atelectasis likely treated malignancy with adjacent radiation fibrosis. 3. Moderate to severe emphysema. No acute cardiopulmonary disease. 4. 4.2 cm fusiform ascending aortic aneurysm at the level of the thoracic hiatus. Reviewed, dictated and finalized at location A. HAND IMPRESSION: 1. Continued increase in size of a now 1.3 cm subpleural nodule at the posterio r basilar segment left lower lobe consistent with malignancy which could be eit her primary or metastatic. 2. No change in a 1.6 cm left upper lobe nodule a band of discoid atelectasis l ikely treated malignancy with adjacent radiation fibrosis. 3. Moderate to severe emphysema. No acute cardiopulmonary disease. 4. 4.2 cm fusiform ascending aortic aneurysm at the level of the thoracic hiatu s.
--- OUTSIDE RECORDS SUMMARY | 2025-05-17 09:23 | XMS_ITS | Encounter Summary ---
Author Organization [facility] Address [address] [place] [address] Phone Care Team Providers Care Tax Associate Attorney Name Role Phone Martin Tejeda MD Primary Care Provider [phone] Encounter Details Date Type Department Care Team (Late st Contact Info) Description 07/30/2024 Orders Only [facility] Scanning, Provider Social History Tobacco Use Types Packs/Day Years Used Date Smoking Tobacco: Former Cigarettes Smokeless Tobacco: Former Sex and Gender Information Value Date Recorded Sex Assigned at Not on file Legal Sex Male 12:15 PM EGG [employer]TER Gender Identity Not on file Sexual Orientation [...] on filedocumented in this encounter Care Teams Tax Associate Attorney Relationship Specialty Start Date End Date Martin Tejeda MD PCP - General 03/09/17 documented as of this encounter
--- OUTSIDE RECORDS SUMMARY | 2025-05-17 09:23 | XMS_ITS | Clinical Summary ---
Author Organization [facility] Address [address] [place] [address] Phone Care Team Providers Care Test Engineering Technician Name Role Phone Martin Tejeda MD Primary Care Provider [phone] Allergies No known active allergies Medications atenoloL [...] Encounters Date Type Department Care Team Description 05/04/2025 External Device Data ST[facility] ABSTRACTION Provider, Abstract 05/04/2025 External Device Data [facility] ABSTRACTION Provider, Abstract 02/15/2025 11:30 AM CDT Office Visit [facility] Oncology and Hematology - [address] [place] [address] [phone] Cash Chamberlain MD Malignant neoplasm of left lung, unspecified part of lung (CMS/HCC) (Primary Dx) 02/15/2025 Orders Only [facility] On[facility] and Hematology [facility] [address] [place] [address] Cash Chamberlain MD from Last 3 Months [...] CDT Gender Identity Male 07/03/2024 1:54 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 Sexual Orientation Not on file Last Filed [...] 64.6 kg (142 lb 6.4 oz) 02/16/20 25 11:20 AM CDT Height 177.8 cm (5' 10) 11/11/2023 1:2 2 PM CDT Body Mass Index 20.43 11/11/2023 1:22 PM CDT Plan of Treatment Upcoming Encounters Date Type Department Care Team (Late st Contact Info) Description 05/28/2025 11:30 AM BOOKING OFFICER Office Visit [facility] On[facility] and Hematology [facility] [address] [place] [address] Cash Chamberlain MD [address] [place] [address] Health Maintenance Due Date Last [...] 02/17/2016, 04/29/2014 ZOSTER VACCINE Completed 11/24/2023, 07/14/2023 Insurance [facility] [place] [address] MEDICARE PART A AND B [facility] [place] [address] MEDICARE PART A AND B [facility] Care Teams Test Engineering Technician Relationship Specialty Start Date End Date Martin Tejeda MD [address] [place] [phone] PCP - General Internal Medicine 11/11/23
--- OUTSIDE RECORDS SUMMARY | 2025-05-17 09:23 | XMS_ITS | Clinical Summary ---
Author Organization [facility] [address] Address [address] [place] [address] Care Team Providers Care Front Of House Manager Name Role Phone Martin Tejeda MD [...] on file Legal Sex Male 12:15 PM COUNTY CORONER Gender Identity Not on file Sexual Orientation [...] 62.6 kg (138 lb) 07/15/2024 1:14 PM COUNTY CORONER Height 180.3 cm (5' 10.98) 03/11/2017 11:36 [...] on 19. Hep C Ab Nonreactive Nonreactive [facility] Comment: Interpretive Data Nonreactive: Antibodies [...] last revised on 2019. HepBsAg Nonreactive Nonreactive [facility] Blood 07/31/2024 12:0 0 PM CDT 07/31/2024 4:00 PM CDT Farhad Arriola MD LAB MICROBIOLOGY - GENERA L ORDERABLES Final Result [facility] [address] [place] [address] from Last 3 Months or Most Recently Relevant to Health Maintenance Insurance [facility] MEDICARE Care Teams Front Of House Manager Relationship Specialty Start Date End Date Martin Tejeda MD PCP - General 03/09/17
--- OUTSIDE RECORDS SUMMARY | 2025-05-17 09:23 | XMS_ITS | Clinical Summary ---
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 Estimator Name Role Phone None, Provider Primary Care Provider Unavaila ble Allergies No known active allergies Social History Tobacco Use Types Packs/Day Years Used Date Smoking Tobacco: Never Assessed Sex and Gender Information Value Date Recorded Sex Assigned at Male 06/29/2024 12:54 PM VETERANS' COORDINATOR Legal Sex Male 12:47 PM VETERANS' COORDINATOR Gender Identity Not on file Sexual Orientation Not on file Last Filed Vital Signs Vital Sign Reading Time Taken Comments Blood Pressure 110/77 06/29/2024 3:57 PM VETERANS' COORDINATOR Pulse 94 06/29/2024 6:48 PM VETERANS' COORDINATOR Temperature 36.1 C (97 F) 06/29/2024 1:20 PM VETERANS' COORDINATOR Respiratory Rate 18 06/29/2024 1:20 PM VETERANS' COORDINATOR Oxygen Saturation 95% 06/29/2024 6:48 PM VETERANS' COORDINATOR Inhaled Oxygen Concentration - - Weight 68 kg (150 lb) 06/29/2024 1:20 PM VETERANS' COORDINATOR Height 177.8 cm (5' 10) 06/29/2024 1:20 PM VETERANS' COORDINATOR Body Mass Index 21.52 06/29/2024 1:20 PM VETERANS' COORDINATOR Plan of Treatment Health Maintenance Due Date [...] age to complete this topic Insurance MEDICARE [facility] Care Teams Upholstery Estimator Relationship Specialty Start Date End Date None, Provider, MD PCP - General UNKNOWN PHYSICIAN SPECIALTY 06/29/24
== END 2025-05-17 09:08 | disposition home or self-care (01) ==
PROVIDERS: PCP Internal Medicine; Visit Provider Internal Medicine Hematology & Oncology
DX: R91.8 Other nonspecific abnormal finding of lung field (principal); J98.11 Atelectasis; J43.9 Emphysema, unspecified; I71.21 Aneurysm of the ascending aorta, without rupture; C34.92 Malignant neoplasm of unspecified part of left bronchus or lung
CPT/HCPCS: 71260; Q9967